=== PATIENT | male | born 1960 | race Caucasian/White ===

== ENCOUNTER 2019-02-26 15:23 | Inpatient (IN) | payer MEDICARE, OTHER ==
[~2019-02-26] VITALS: Ht 182.9 cm; Wt 112.1 kg
--- NOTE | ~2019-02-26 | DS ---
[facility] [address] [place], [place] [address] Draft ADMISSION DATE: 02/27/2019 DISCHARGE DATE: 03/01/2019 FINAL DIAGNOSIS: Right posterior oropharyngeal squamous cell carcinoma. PROCEDURES PERFORMED: 1. Placement of left subclavian fqdp-i-fuvjdysv. 2. Physician directed fluoroscopy. 3. Upper endoscopy with Campylobacter-like organism test. 4. Biopsies of the duodenal bulb, antrum, and placement of percutaneous endoscopic gastrostomy tube. HISTORY OF PRESENT ILLNESS: Junior is a 58-year-old gentleman, who was diagnosed with HIV and AIDS a number of years ago. He has been on his medication and actually doing quite well. Unfortunately, a lady noticed a lump in his neck while standing in the parking lot. Upon evaluation, he has a squamous cell carcinoma in the right posterior oropharyngeal area. He had been asked to see me expeditiously for placement of his qusc-n-cmkxqydk and a PEG tube. In fact, he told me he had a tpqa-t-iylfogsx once before. HOSPITAL COURSE: Junior was brought into the operating room on 02/27/2019. We did place his left subclavian vzkh-i-hymvgnfa with help of our fluoroscopy unit. After this, we were able to do his upper endoscopy and we could see he does have a hiatal hernia with some vwky-xb-tnkujmmh gastroduodenitis. We have taken a WILFREDO test was came back negative for H pylori. Pathology results are still pending for the biopsies. We also placed his standard PEG tube at that time. The topical bolster is right at the 6 cm rosario. We had kept Junior in the hospital for a day to evaluate for any potential immediate postop complications. In addition, he lives by himself and has no help at home. This is the weekend and so we wanted to provide him with some instruction for his PEG tubes. Our office assistance saw him Saturday just before the procedure and she did recommend using Jevity 1.5. He requires 6 cans a day, which equals 480 mL of tube feeds 3 times a day, and he requires 240 mL of water every 2 hours. Of course, this can be adjusted based on his p.o. intake. We did provide that to him yesterday and he did quite well with that. This morning, his port site is excellent along with the PEG tube site. His abdominal exam is completely benign. With hydration, he did drop his hemoglobin from 14.5 down to 12.5. Also his BUN and creatinine improved from 25/1.78 to 20/1.54. His albumin is good at 4.3 and his a pre-albumin is good at 27.9. Due to I met with Junior this morning and he feels going comfortable going home today on Saturday. Our home health care team we out to see him this week and I will have him in my office later in the week. PATIENT NAME: JUNIOR VEGA JR DISCHARGE SUMMARY DATE OF : 58 REPORT #: [id number] PHYSICIAN: APARNA JIMÉNEZ MD PCP: YOVANI ALONSO MD REPORT IS CONFIDENTIAL AND NOT TO BE RELEASED WITHOUT AUTHORIZATION [address] [address] Draft DISCHARGE PLANS AND MEDICATIONS: Junior is going to be discharged to home with prescription for some pain medication. We will provide him with some Jackson. Otherwise, he is going to have all his routine medications. He can take a regular diet. He can shower and bathe as usual. He can perform his activities of daily living including walking up and down stairs and showering bathing as usual. He should not do any heavy pushing, pulling, or lifting more than 20 pounds. Our home health care team will see him this week and I will have him in my office later this week to check in on him. He told me he has already called. He is going to make an appointment with his dentist to make sure his teeth were fine before he starts his radiation and chemotherapy. He has expressed understanding and agrees above plan. Aparna Jiménez MD ALB/MODL /[id number] cc: MD Noel Marroquin, MD Jesus Lopez, MD Yovani Alonso, MD Mayelin Shaw MD Copies: APARNA JIMÉNEZ MD, ROBERT C MD CRABTREE, GARY MD DUFFY, SEAN MD PATIENT NAME: JUNIOR VEGA DISCHARGE SUMMARY DATE OF : 58 REPORT #: [id number] PHYSICIAN: APARNA JIMÉNEZ MD PCP: YOVANI ALONSO MD REPORT IS CONFIDENTIAL AND NOT TO BE RELEASED WITHOUT AUTHORIZATION [address] [address] Draft LAURIE SHAW HI ~ PATIENT NAME: ERASMO VEGABABAK ENNIS JR DISCHARGE SUMMARY DATE OF : 58 REPORT #: [id number] PHYSICIAN: APARNA JIMÉNEZ MD PCP: YOVANI ALONSO MD REPORT IS CONFIDENTIAL AND NOT TO BE RELEASED WITHOUT AUTHORIZATION
--- OUTSIDE RECORDS SUMMARY | ~2019-02-26 | XMS | Encounter Summary ---
Demographics + + + | Address | [address] | | | [place] [address] | + + + | Home Phone | | + + + | Preferred Language | Unknown | + + + | Marital Status | Single | + + + | Confucianist Affiliation | Unknown | + + + [...] Team Providers + +------+ + | Care Home Based Assistant Name | Role | Phone | [...]
--- OUTSIDE RECORDS SUMMARY | ~2019-02-26 | XMS | Encounter Summary ---
Demographics + + + | Address | [address] | | | [place] [address] | + + + | Home Phone | | + + + | Preferred Language | Unknown | + + + | Marital Status | Single | + + + | Sikh Affiliation | Unknown | + + + | Race | White | + + + | Ethnic Group | Not or | + + + Author + + + | Author | [facility] | + + + | Organization | [facility] | + + + | Address | Unknown | + + + | Phone | Unavailable | + + + Support + + +---------+ + | Name | Relationship | Address | Phone | + + +---------+ + | None Per Pt | ECON | Unknown | Unavailable | + + +---------+ + Care Team Providers + +------+ + | Care Vice President Safety Name | Role | Phone | + +------+ + | Yovani Alonso MD | PCP | | + +------+ + Encounter Details +--------+ + + + + | Date | Type | Department | Care Team | Description | +--------+ + + + + | 02/24/ | Documentati | Otolaryngology | Sunil Shaw MD | | | 2019 | on | Head and Neck | [address] | | | | | Surgery Services at | [address] [place], | | | | | [address] | [place] [address] | | | | | Ave Mailcode: | [phone] | | | | | [facility] | | | | | | and Healing, | | | | | | [address] | | | | | | [place], [place] | | | | | | [address] | | | | | | [phone] | | | +--------+ + + + [...]
--- OUTSIDE RECORDS SUMMARY | ~2019-02-26 | XMS | Clinical Summary ---
Demographics + + + | Address | [address] | | | [place] [address] | + + + | Home Phone | | + + + | Preferred Language | Unknown | + + + | Marital Status | Single | + + + | Bahai Affiliation | Unknown | + + + [...] Team Providers + +------+ + | Care Medical Reception Specialist Name | Role | Phone | + +------+ + | Yovani Alonso MD | PCP | | + +------+ + Source Comments ELLE is fully live on both Health system Ambulatory and Health system InPatient.[facility] Allergies + + + + + + [...] | + +--------+ + + + | IN | Routin | 02/22/2019 | Tonsil cancer | | | LARYNGOSCOPY,FLEXIBL | e | 8:36 PM | ([facility]) | | | E, DIAGNOSTIC | | [...] | MEDICA | xxxxxxxxxxx | 10/24/19 | [phone] | [address] | Medica | | | RE A & | | 10-Pre | 1 | [address] | re | | | B | | sent | | [place], [place] | | | | | | | | [address] | | + +--------+ +--------+ + +--------+ | SWINE [employer] RESEARCHER MEDICAID | SWINE GENETICS RESEARCHER | xxxxxxxx | 03/25/19 | | | [...] | | al/Cornelio | | 1961 | [phone] | [place] [address] | | | misty | | | 5 (Home) | | + +--------+ +--------+ + +"
--- OUTSIDE RECORDS SUMMARY | ~2019-02-26 | XMS | Encounter Summary ---
Demographics + + + | Address | [address] | | | [place] [address] | + + + | Home Phone | | + + + | Preferred Language | Unknown | + + + | Marital Status | Single | + + + | Mosque Affiliation | Unknown | + + + | Race | White | + + + | Ethnic Group | Not or | + + + Author + + + | Author | [facility] | + + + | Organization | [facility] | + + + | Address | Unknown | + + + | Phone | Unavailable | + + + Support + + +---------+ + | Name | Relationship | Address | Phone | + + +---------+ + | None Per Pt | ECON | Unknown | Unavailable | + + +---------+ + Care Team Providers + +------+ + | Care Ordnance Handler Name | Role | Phone | + [...] | | | Tonsil | MD [address]etal [address] | | | | | | cancer (HCC) | [address] | | | | | | Procedures | [address] | | | | | | PET CT | Rd | | | | | | [address] | [place], [place] | | | | | | TO | [address] | | | | | | [place] | Phone: | | | | | | | [phone] | | | | | | | Fax: | | | | | | | [phone] | | + +--------+ + + + [...] | | | Tonsil | MD [address] | Ty Hirsch MD | | | | | cancer (HCC) | [facility] | [place] | | | | | Procedures | [facility] | Cancer Clinic | | | | | CONSULT TO | Rd | [address] | | | | | RADIATION | [place], [place] | Willie Porras | | | | | ONCOLOGY | [address] | [address] | | | | | | Phone: | NICOLETTE Sharpe | | | | | | [phone] | [address] | | | | | | Fax: | Phone: | | | | | | [phone] | [phone] | | | | | | | Fax: | | | | | | | [phone] | + +--------+ + + + + Reason for Visit Intake Referral (Routine) + +--------+ + + + + | Status | Reason | Specialty | Diagnoses / | Referred By | Referred To | | | | | Procedures | Contact | Contact | + +--------+ + + + + | Authorized | | Otolaryngolog | Diagnoses | John, | Sunil Shaw, | | | | y | Malignant | Jesus Fabian MD | [address] | | | | | neoplasm of | [address] | [address] | | | | | pharynx, | [address] | Rafaela [address] | | | | | unspecified | [place] | [place], [place] | | | | | Pharyngeal | [place] | [address] | | | | | tumor | [address] | Phone: | | | | | Procedures | Phone: | [phone] | | | | | [place] NEW | [phone] | Fax: | | | | | PATIENT | Fax: | [phone] | | | | | LEVEL III | [phone] | | + +--------+ + + + + Encounter Details +--------+---------+ [...] | | | Surgery Services at | [facility], | | | | | [facility] [address] [facility] | [place] [address] | | | | | [place] Mailcode: | [phone] | | | | | [facility] | | | | | | and [address], | | | | | | [place] | | | | | | [place], [place] | | | | | | [address] | | | | | | [phone] | | | +--------+---------+ + + + [...] 58 y.o. male seen in consultation fr om Dr. Lopez regarding management of a right-sided neck mass. Report is that it was notic ed by a woman at [facility] a couple of months ago. He underwent CT of the neck after presentin g to his PCP and he was thereafter referred to Dr. Lopez. He underwent DL on 02/03/19 wit bacilio Lopez, at which time a tumor was visualized [...] would stage this patient clinically as a hB3D1Gq p16+, Sta ge I oropharyngeal squamous cell [...] him with arranging chemoradiation therapy in the [facility], with Dr. Ty Charlton. We have called his office and discussed with his PA. We will also help arrange PET/CT at [facility]. We discussed urgent dental evaluation, which [...] portions of this procedure. Sunil Shaw MD Cargo Checker Head and Neck Surgical Oncology Microvascular Reconstructive [...]
[~2019-02-26 15:23] MED LIST: 24 HOUR ALLER15.8 ML INH; ATENOLOL50 MG PO; COMBIVENT RESPIM4 GM INH; FUROSEMIDE40 MG PO; GABAPENTIN600 MG PO; IBUPROFEN600 MG PO; LISINOPRIL40 MG PO; LOPERAMIDE2 M1 PO; LORATADINE10 MG PO; MEDROL4 M1 PO; PRAVASTATIN SOD80 MG PO; PROVENTIL HFA6.7 GM INH; SPIRIVA18 MCG INH; VENTOLIN HFA18 GM INH; ZITHROMAX250 MG PO
--- NOTE | 2019-02-27 14:10 | NUR ---
02/27/19 1410 DinaRahel M 1324-PT TO PACU IN SF POSITION. EYES OPEN COMPLAINING OF PAIN. BREATHING UNLABORED, BUT TACHYPNIC. APPEARS ANXIOUS. SP02 >95% ON 4 L O2 VIA NC. DENIES NAUSEA 1325- GOLDSMITH APPRENTICE PROVIDES VERBAL ORDER FOR MORPHINE 10 MG. PATIENT STATES 10/10 PAIN IN ABDOMIN SURGICAL SITE. BOTH SITES CDI. 1330- PT ALERT AND ORIENTED, STILL ANXIOUS AND PAINFUL. WILL CONTINUE TO UTILIZE PRN PAIN MEDICATION. OXYGENATING AND VENTILATING WELL WITHOUT EXCERTION. SP02>95%. O2 TITRATED TO RA. 1335- PT CONTINUES TO RATE PAIN 10/10, IS DIAPHORETIC AND TACHYPNIC. WILL CONTINUE TO UTILIZE PRN PAIN MEDICATIONS. VSS VENTILATING AND OXYGENATING WELL. DENIES NAUSEA OR DIZZINESS. 1340- CXR OBTAINED. DR JIMÉNEZ AT BEDSIDE TALKING WITH PATIENT. JESSY VISUALIZING CXR AND STATES HE WILL PUT IN TRANSFER ORDER SO PT CAN GO TO THE FLOOR SOON. 1352- PT STATES PAIN IS NOW 8/10. RR, HR AND AGITATION HAVE IMPROVED. PT STATES TOLERABLE LEVEL OF PAIN IS 8/10. WILL CONTINUE TO MONITOR AND PROVIDE PRN PAIN MEDICATION. DENIES NAUSEA OR DIZZINESS SP02 HAS CONSISTENTLY SUSTAINED >95% ON RA. 1409- PT STATES "ITS HURTING MORE". STILL RATES PAIN 8-9/10. RR 17 SP02 100% ON RA. DENIES NAUSEA.
--- NOTE | 2019-02-27 14:48 | NUR ---
PATIENT ARRIVED TO MED SURG, TRANSFERRED TO BED. PATIENT REPORTS NO DIFFICULTY WITH AMBULATION AT BASELINE. VITALS DONE. PATIENT REPORTS 6/10 ABD PAIN, AT EPIGASTRIC PEG TUBE INSERTION SITE. PATIENT DENIES PAIN AT LEFT CHEST PORTACATH INSERTION SITE. BOTH DRESSINGS ARE CDI WITH ICE PACKS. PATIENT GIVEN WARM BLANKETS.
--- NOTE | 2019-02-27 16:50 | NUR ---
PATIENT UP TO VOID, PASS GAS IN BATHROOM. PATIENT IS STEADY ON HIS FEET, USING CALL LIGHT APPROPRIATELY. VITALS ARE STABLE. PATIENT RATES ABD PAIN 7/10.
--- NOTE | 2019-02-27 19:18 | NUR ---
SHIFT REPORT RECIEVED FROM JARED PALENCIA. PORT INCISION CDI, WNL. PEG INCISION CDI, WNL. PAIN 11/01 IN ABD. ICE PACK PROVIDED. PT REPOSITIONED. CALL LIGHT IN REACH.
--- NOTE | 2019-02-27 19:25 | NUR ---
PT PAIN 8/10 IN LOWER ABD, "SHARP AND TIGHT". PRN PAIN MED PROVIDED. NO OTHER NEEDS. CALL LIGHT IN REACH.
--- NOTE | 2019-02-27 20:48 | NUR ---
ASSESSMENT, VS, I&O COMPLETED. SCHEDULED MEDS PROVIDED. PAIN 5/10, PT DENIES NEED FOR FURTHER PAIN INTERVENTION. ICE WATER PROVIDED. NO OTHER NEEDS. CALL LIGHT IN REACH.
--- NOTE | 2019-02-27 21:35 | NUR ---
CARPENTER'S ASSISTANT ROUNDING NOTE. PT RESTING IN BED, WAKES WHEN MEN'S LEATHER DRESS BELT MAKER ENTERS THE ROOM. PT DENIES QUESTIONS OR CONCERNS. PT STATES THAT HE HAS RECEIVED WONDERFUL CARE, AND THAT EVERYONE IS KIND AND GENTLE. CALL LIGHT IN REACH. WHITEBOARD UDPATED.
--- NOTE | 2019-02-27 22:39 | NUR ---
PT RESTING IN BED, EYES CLOSED. RR 16, CPOX 93% ON RA, EVEN, UNLABORED. CALL LIGHT IN REACH.
--- NOTE | 2019-02-28 00:30 | NUR ---
PT UP TO BR. PAIN 6/10, TIGHTNESS IN ABD. PRN PAIN MED PROVIDED. VS TAKEN. ICE PACK PROVIDED TO ABD. NO OTHER NEEDS. CALL LIGHT IN REACH.
--- NOTE | 2019-02-28 02:30 | NUR ---
PT RESTING IN BED, EYES CLOSED. RR 14, EVEN, UNLABORED. CALL LIGHT IN REACH.
--- NOTE | 2019-02-28 04:39 | NUR ---
PT PAIN 6/10 IN ABD, "TIGHT". PRN PAIN MED PROVIDED. ASSESSMENT AND VITALS COMPLETED. NEW BAG IV FLUIDS PROVIDED. INCISIONS CDI, WNL. IV CDI, WNL. ICE PACK PROVIDED FRO ABD. NO OTHER NEEDS AT THIS TIME. CALL LIGHT IN REACH.
--- NOTE | 2019-02-28 05:18 | NUR ---
PT HAS SLEPT MOST THE SHIFT. ABD PAIN MANAGED WITH PRN PAIN MEDS. INCISIONS CDI, WNL. IV FLUSHED WELL. PT TOLERATED CLEAR DIET AND IV FLUIDS WELL.
--- NOTE | 2019-02-28 06:00 | NUR ---
PT RESTING IN BED, EYES CLOSED. RR 14, EVEN, UNLABORED. CALL LIGHT IN REACH.
--- NOTE | 2019-02-28 06:27 | NUR ---
PATIENT WAS UP TWICE DURING THE NIGHT TO BATHROOM, PATIENT IS A STAND BY ASSIST FRESH WATER GIVEN AND CALL LIGHT IN REACH
--- NOTE | 2019-02-28 06:35 | OR ---
[facility] [address] [place], [place] [address] Signed DATE OF OPERATION: 02/27/2019 SURGEON: Aparna Jiménez MD PREOPERATIVE DIAGNOSIS: Squamous cell carcinoma, right posterior oropharynx. POSTOPERATIVE DIAGNOSES: 1. Squamous cell carcinoma, right posterior oropharynx. 2. Ctile-oe-tavifkid sized hiatal hernia. 3. Wdvk-ii-vzeqcivz gastroduodenitis. PROCEDURES: 1. Placement of left subclavian Afzd-P-Tvzfrgse. 2. Physician directed fluoroscopy. 3. Placement of percutaneous endoscopic gastrostomy tube (6 cm). 4. Upper endoscopy with CLOtest and biopsies of the pyloric bulb and antrum. ESTIMATED BLOOD LOSS: None. INDICATIONS: Junior is a 58-year-old gentleman, who was previously diagnosed with HIV. He has been doing very well with his medication. His counts are down to undetectable and his CD4 counts are quite acceptable. However, he developed some swelling in the right side of his neck. A lady actually noticed it in the parking lot. He went to his primary care provider and this was confirmed on physical exam. A CT scan of his head and neck was obtained and he had cancer in the right posterior oropharynx. It was biopsied by one of our local filtration plant mechanic and found to be a squamous cell carcinoma. He has been down to [facility] for additional consultation. It was felt that he is not a surgical candidate. Therefore, he is preparing for radiation and chemotherapy. Consequently, he was asked to see me as a local general surgeon for placement of his Ybuk-W-Mckgccdx as well as a percutaneous endoscopic gastrostomy tube anticipating his need for nutrition secondary to dysphagia. In the office, I reviewed all this with Junior in detail. We went through a Yabk-D-Indwvoxv in detail. He understands the nature of a Dccx-O-Gkibodqv along with the risks of placement including, but not limited to bleeding, infection, scarring, change in contour of the skin, pneumothorax requiring chest tube placement, as well as catheter embolization requiring retrieval. In addition, we went over a percutaneous endoscopic gastrostomy tube in detail. He understands there is risk to that placement including, but not limited to Electronically Signed By: APARNA JIMÉNEZ MD 02/28/19 0635 PATIENT NAME: JUNIOR VEGA JR OPERATIVE REPORT DATE OF : 58 REPORT #: [id number] PHYSICIAN: APARNA JIMÉNEZ MD PCP: YOVANI LUQUE MD REPORT IS CONFIDENTIAL AND NOT TO BE RELEASED WITHOUT AUTHORIZATION [facility] [address] [place] [address] Signed bleeding, infection, scarring as well as change in contour of the skin, dislodgement, peritonitis, and need for possible open abdominal surgery. He had expressed understanding and wished to proceed. PROCEDURE NOTE: I met with Junior in our preop area. After answering his questions, we took Junior into our operating room. He was placed in the supine position under monitored anesthesia care. He was given preoperative antibiotics along with subcutaneous heparin. SCDs were utilized. His entire neck and chest wall were prepped and draped in usual sterile fashion. He was placed in slight Trendelenburg position. Local anesthetic was injected into the left chest wall and underneath the left clavicle. I was able to insert the needle into his left subclavian vein on the first pass of the needle. The wire was able to feed without any resistance whatsoever. We checked the position of the wire and found that to be appropriate with our fluoroscopy unit. An oblique incision was made over the chest wall and a subcutaneous pocket was developed bluntly with hemostats. The dilator was then passed over the wire without difficulty and the position of the dilator was confirmed with fluoroscopy unit. After this, the wire was removed and we passed our single-lumen Qyts-O-Nalzenhs up to about 18 cm at the level of the adipose tissue. We found again it was in good position with the help of the fluoroscopy unit. The catheter was trimmed to length and the hub was placed onto the catheter. The collar was brought back over the neck of the hub. The port was able to draw and flush quite nicely with saline. We once again checked the full length of the catheter with our fluoroscopy unit. We then filled the hub and the catheter with concentrated heparin. We used interrupted 2-0 Prolene sutures to secure the hub in position. There was a stitch on either side of the hub in one of the neck. After this, the wound was irrigated and suctioned out until clear. The dermis was then reapproximated with interrupted 3-0 subcuticular Monocryl sutures. The skin edges were reapproximated with a running 5-0 fast absorbing plain gut suture. Dry gauze and tape were then applied. Junior tolerated the procedure quite well. After this, the entire field was taken down. Our endoscopy equipment was then brought into the room. The adult gastroscope was then introduced and I could see the tumor in the right posterior oropharynx. The epiglottis, arytenoids, and vocal cords were uninvolved. We passed easily down the esophagus and out into the stomach itself. We went all the way out into the third portion of the duodenum. The duodenum was unremarkable. The pyloric channel did show some erythematous changes, but no ulcerations. No evidence of any gastric outlet obstruction. We took a biopsy out of the left pyloric bulb for pathologic review. The stomach showed some mild to moderate diffuse inflammatory changes. No gross ulcerations. We took a biopsy of the antrum for pathologic review as well as CLOtest. Upon retroflexion of scope, he does have just a alegy-vi-rjbyywpd sized hiatal hernia. We then prepped his abdominal wall with Betadine. With our index finger, we were able to palpate the left upper quadrant. He Electronically Signed By: APARNA JIMÉNEZ MD 02/28/19 0635 PATIENT NAME: JUNIOR VEGA JR OPERATIVE REPORT DATE OF : 58 REPORT #: [id number] PHYSICIAN: APARNA JIMÉNEZ MD PCP: YOVANI LUQUE MD REPORT IS CONFIDENTIAL AND NOT TO BE RELEASED WITHOUT AUTHORIZATION [facility] [address] [place], [place] [address] Signed still has a good body mass index and he is pretty thick. We tried to place our needle through just lateral to his epigastric artery and vein in the rectus sheath. We simply could not reach all the way into the stomach itself. We moved up to his previous laparoscopic cholecystectomy incision just below the xiphoid process. This was in the midline. We opened that carefully with about three 4 mm with our 11 blade knife and we were able to place our needle directly through that into the stomach itself. After this, the wire was inserted and we captured the wire with our snare through the endoscope. It was then brought out through the oropharynx, so that we had the wire present through his mouth and out through the abdominal wall. We were able to pass the PEG tube over the wire down into the stomach itself. The bolster was placed over the PEG tube in the top of the collar and the bolster is exactly at 6 cm. This is a little thicker than usual, but that is perfectly fine. We had removed the wire and reinserted our gastroscope and we confirmed the position of the PEG tube and we found that was not too tight and therefore avoiding necrosis of the gastric wall. The PEG tube was then trimmed to length in the clamp was placed over the PEG tube and then the two-way valve was placed onto the end of the PEG tube. Dry gauze was placed underneath the bolster onto the abdominal wall. We then suctioned out the stomach and withdrew the gastroscope. After this, Junior was awakened from his anesthesia and taken into recovery room in stable condition. Aparna Jiménez MD ALB/MODL /[id number] cc: MD Yovani Dong MD Andrew L Bower, MD Robert C Quackenbush, MD Gary Crabtree, MD Ryann Li, MD Electronically Signed By: APARNA JIMÉNEZ MD 02/28/19 0635 PATIENT NAME: JUNIOR VEGA OPERATIVE REPORT DATE OF : 58 REPORT #: [id number] PHYSICIAN: APARNA JIMÉNEZ MD PCP: YOVANI LUQUE MD REPORT IS CONFIDENTIAL AND NOT TO BE RELEASED WITHOUT AUTHORIZATION [address] [address] Signed Copies: MASSIEL PASTRANA MD, SEAN MD BOWER, ANDREW L MD QUACKENBUSH, ROBERT C MD CRABTREE, GARY MD LI, RYAN J MD ~ Electronically Signed By: APARNA JIMÉNEZ MD 02/28/19 0635 PATIENT NAME: JUNIOR VEGA OPERATIVE REPORT DATE OF : 58 REPORT #: [id number] PHYSICIAN: APARNA JIMÉNEZ MD PCP: YOVANI LUQUE MD REPORT IS CONFIDENTIAL AND NOT TO BE RELEASED WITHOUT AUTHORIZATION
--- NOTE | 2019-02-28 07:05 | NUR ---
BEDSIDE HANDOFF REPORT RECEIVED FROM CHAIR PAD MAKER RN. PT RESTING IN BED. PT RATING PAIN 6-7/10. DISCUSSED PLAN OF CARE INCLUDING DIET AND TUBE FEEDS THIS AM. PT DENIES OTHER NEEDS AT THIS TIME.
--- NOTE | 2019-02-28 11:07 | NUR ---
TUBE FEEDING BOLUS INTITIATED, RESIDUAL OF 4ML OF GASTRIC CONTENTS BEFORE FEEDING, TOTAL OF 250 ML OF WATER AND 480 ML OF JEVITY 1.5 GIVEN, PT TOLERATED WELL WITHOUT PAIN OR NAUSEA. PT EDUCATED ON STAYING UPRIGHT AFTER FEEDINGS, FEEDING SCHEDULE AND WATER FLUSHING SCHEDULE, AND HOW TO GIVE BOLUS FEEDINGS. PT FEELS COMFORTABLE WITH ATTEMPTING TUBE FEED THIS AFTERNOON WITH ASSITANCE. PT AMBULATED TO BATHROOM, STEADY ON FEET, VOIDED. DISCUSSED ACTIVTY, PT WILL WALK IN [place] THIS AFTERNOON AFTER SHOWER. PT DENIES OTHER NEEDS AT THIS TIME.
--- NOTE | 2019-02-28 12:50 | NUR ---
PT SALINE LOCKED FOR SHOWER. DRESSINGS REMOVED PER DR. JIMÉNEZ ORDER. PT PROVIDED WITH SELF CAR ITEMS. PT DENIES OTHER NEEDS AT THIS TIME.
--- NOTE | 2019-02-28 13:30 | NUR ---
PT COMPLETED WITH SHOWER. GAUZE REPLACED TO PEG TUBE SITE. ATTEMPTED TO RESTART IV FLUIDS, IV NOT PATENT. PLAN TO RESTART NEW IV AND COMPLETE AFTERNOON TUBE FEEDING. PT DENIES OTHER NEEDS AT THIS TIME.
--- NOTE | 2019-02-28 15:10 | NUR ---
ATTEMPTED IV INSERTION, UNABLE TO OBTAIN IV ACCESS. PT PERFORMED TUBE FEEDING AND WATER BOLUS WITH MINIMAL ASSISTANCE AND DIRECTION, PT ABLE TO DRAW UP SYRINGES OF FORMULA AND WATER AND DEMONSTRATED PROPER TECHNIQUE FOR BOLUS FEEDING. ALL QUESTIONS ANSWERED. PLAN FOR PT TO CONTINUE PERFORMING FEEDINGS AND WATER BOLUS THIS EVENING AND OVERNIGHT.
--- NOTE | 2019-02-28 17:30 | NUR ---
PT GETTING READY TO WALK IN THE [place]. PT RATING PAIN 6-7/10 TO ABD, GIVEN 2 TAB NORCO. PT DENIES OTHER NEEDS AT THIS TIME.
--- NOTE | 2019-02-28 18:23 | NUR ---
PT COMPLETED TUBE FEED AND WATER BOLU WITH MINIMAL ASSISTANCE. DISCUSSED PLAN FOR WATER BOLUS OVERNIGHT. PT DENIES OTHER NEEDS AT THIS TIME.
--- NOTE | 2019-02-28 18:24 | NUR ---
PT ON ROOM AIR, LUNG SOUNDS CLEAR. PT TOLERATED TUBE FEEDING 480 ML JEVITY 1.5 3 TIMES TODAY WITH 250 ML WATER BOLUS, PT ABLE TO DEMONSTRATE SELF FEEDINGS WITH MINIMAL ASSISTANCE. PAIN WELL CONTROLLED WITH NORCO AND MOTRIN. PT WALKED IN [place], SHOWERED TODAY. IV FLUIDS INFUSING D5LR AT 30 ML/HR. PT VOIDING QS.
--- NOTE | 2019-02-28 19:29 | NUR ---
TODAY I WENT IN TO CHECK ON HIM BROUGHT HIM SEVERAL WARM BLANKETS THROUGH OUT THE DAY. ALSO HE ASKED FOR AN ICE PACK. HE WALKED COUPLE TIMES AROUND MED SURG.
--- NOTE | 2019-02-28 19:42 | NUR ---
coop with assessment, l port insertion site w sutures intact. edges well approx peg tube in place, will do tf at 2200. call light at bedside
--- NOTE | 2019-02-28 19:56 | NUR ---
COMPRESSOR STATION OPERATOR ROUNDING NOTE. PT RESTING IN BED AWAKE, RECEIVING BREATHING TREATMENT. PT DENIES QUESTIONS, CONCERNS, OR NEEDS AT THIS TIME. CALL LIGHT IN REACH. WHITE BOARD UPDATED.
--- NOTE | 2019-02-28 22:21 | NUR ---
up to br, voided QS yellow urine. Did own free water flush through peg tubing. Was medicated with 2 Teague abd pain.
--- NOTE | 2019-03-01 01:10 | NUR ---
RESTING, NO DISTRESS, RESP EVEN, UNLABORED. CALL LIGHT AND FLUIDS AT BEDSIDE, INDEPENDENT IN ROOM
--- NOTE | 2019-03-01 02:00 | NUR ---
PT REPORT RECIEVED FROM TALHA ALMENDAREZ. CARE ASSUMED AT THIS TIME.
--- NOTE | 2019-03-01 02:30 | NUR ---
PT REPORT 6/10 ABD PAIN AND IS REQUESTING PAIN MEDICATION. PRN MEDICATION GIVEN AT THIS TIME (SEE EMAR).
--- NOTE | 2019-03-01 03:20 | NUR ---
PT REPORTS PAIN IS NOW CONTROLLED AT A TOLERABLE LEVEL. ASSESSMENT COMPLETED AT THIS TIME. PEG TUBE ASSESSED AND FLUSHED WITH 25O MLS OF WATER. RIGHT HAND IV DC'D NOT FLUSHING, DC'D AT THIS TIME PER DR. JIMÉNEZ. PT PROVIDED A WARM BLANKET. NO FURTHER NEEDS AT THIS TIME
--- NOTE | 2019-03-01 05:58 | NUR ---
FLUSHED PT PEG TUBE WITH 250 CC WATER. PT DENIES PAIN AT THIS TIME. CALL LIGHT WITHIN REACH. NO FURTHER NEEDS AT THIS TIME.
--- NOTE | 2019-03-01 07:05 | NUR ---
PT RESTING SUPINE IN BED EYES CLOSED AND RESPIRATIONS EVEN AND UNLABORED. CALL LIGHT AND H2O IN REACH. REPORT RECEIVED FROM TALHA MARTINEZ.
--- NOTE | 2019-03-01 08:41 | NUR ---
PT UP AMBULATING IN ROOM STATES "THE DOCTOR SAYS I GET TO GO HOME TODAY". PT A/O X4. ASSESSMENT COMPLETED AND AM MEDS ADMINISTERED. CALL LIGHT AND H2O IN REACH. H2O FREE WATER BOLUS SELF ADMINISTERED BY PT AT THIS TIME. NO FURTHER NEEDS OR CONCERNS VOICED.
[2019-03-01] MEDS ORDERED: TRIUMEQ TABLET1 EACH PO (11:18)
--- NOTE | 2019-03-02 15:00 | NUR ---
EMAILED THE FACE TO FACE TO HOME HEALTH, AND ALL THE REQUIRED DOCUMENTS. GOT THE APPROVAL.
== END 2019-03-01 10:15 | disposition home health service (06) | DRG 148 ==
LOC: DSVR 02-27 08:25 → DS 02-27 11:00 → EDSTATUS 02-27 11:00 → MS 02-27 11:00
PROVIDERS: ADMIT Colon & Rectal Surgery
PROC: 0DH63UZ Insertion of Feeding Device into Stomach, Percutaneous Approach (ICD-10-PCS; 2019-02-27)
PROC: 0JH63WZ Insertion of Totally Implantable Vascular Access Device into Chest Subcutaneous Tissue and Fascia, Percutaneous Approach (ICD-10-PCS; 2019-02-27)
PROC: 02HV33Z Insertion of Infusion Device into Superior Vena Cava, Percutaneous Approach (ICD-10-PCS; 2019-02-27)
PROC: B5181ZA Fluoroscopy of Superior Vena Cava using Low Osmolar Contrast, Guidance (ICD-10-PCS; 2019-02-27)
PROC: 0DB68ZX Excision of Stomach, Via Natural or Artificial Opening Endoscopic, Diagnostic (ICD-10-PCS; principal; 2019-02-27 11:00)
PROC: 0DB78ZX Excision of Stomach, Pylorus, Via Natural or Artificial Opening Endoscopic, Diagnostic (ICD-10-PCS; 2019-02-27 11:00)
DX: C10.3 Malignant neoplasm of posterior wall of oropharynx (principal); K44.9 Diaphragmatic hernia without obstruction or gangrene; K29.90 Gastroduodenitis, unspecified, without bleeding; J44.9 Chronic obstructive pulmonary disease, unspecified; I10 Essential (primary) hypertension; Z21 Asymptomatic human immunodeficiency virus [HIV] infection status; E78.00 Pure hypercholesterolemia, unspecified; M19.90 Unspecified osteoarthritis, unspecified site; Z79.899 Other long term (current) drug therapy; Z88.0 Allergy status to penicillin
CPT/HCPCS: 36415; 71045; 76000; 77001; 80048; 83735; 84100; 85025; 86677; 94640; 94762; A9270; C1788; J0690; J1644; J2250; J2270; J2370; J2704; J3010; J7121

== ENCOUNTER 2019-03-29 21:16 | Emergency (ER) | payer MEDICARE, OTHER ==
[~2019-03-29] VITALS: Ht 182.9 cm; Wt 108.9 kg
--- OUTSIDE RECORDS SUMMARY | ~2019-03-29 | XMS | Encounter Summary ---
Demographics + + + | Address | [address] | | | [place] [address] | + + + | Home Phone | | + + + | Preferred Language | Unknown | + + + | Marital Status | Single | + + + | Caodaism Affiliation | 1041 | + + + | Race | Unknown | + + + | Ethnic Group | Unknown | + + + Author + + + | Author | [facility] | | | and [place] | + + + | Organization | [facility] | | | and [place]ay[place] | + + + | Address | Unknown | + + + | Phone | Unavailable | + + + Support + + +---------+ + | Name | Relationship | Address | Phone | + + +---------+ + | Beth Mercado | ECON | Unknown | | + + +---------+ + Care Team Providers + +------+ + | Care Business Continuity Consultant Name | Role | Phone | + +------+ + PCP | Unavailable | + +------+ + Encounter Details +--------+ + + + + | Date | Type | Department | Care Team | Description | +--------+ + + + + | 12/06/ | Hospital | [facility] | Renetta Falk | | | 2005 | Encounter | MED CTR XRAY [address] | MD Yvonne [address] | | | | | [place] | [address] [place] | | | | | [place] [address] | [place] [address] | | | | | [phone] | [phone] | | | | | | | | +--------+ + + + + Social History + +-------+ +--------+------+ | Tobacco Use | Types | Packs/Day | Years | Date | | | | | Used | | + +-------+ +--------+------+ | Never Assessed | | | | | + +-------+ +--------+------+ + + + | Sex Assigned at | Date Recorded | | | | + + + | Not on file | | + + + + + + + | Job Start Date | Occupation | Industry | + + + + | Not on file | Not on file | Not on file | + + + + + + + + | Travel History | Travel Start | Travel End | + + + + + + | No recent travel history available. | + + documented as of this encounter Plan of Treatment Not on filedocumented as of this encounter Visit Diagnoses Not on filedocumented in this encounter"
--- OUTSIDE RECORDS SUMMARY | ~2019-03-29 | XMS | Encounter Summary ---
Demographics + + + | Address | [address] | | | [place] [address] | + + + | Home Phone | | + + + | Preferred Language | Unknown | + + + | Marital Status | Single | + + + | Orthodox Affiliation | 1041 | + + + | Race | Unknown | + + + | Ethnic Group | Unknown | + + + Author + + + | Author | [facility] | | | and Chayana | + + + | Organization | [facility] | | | and Chayana | [...] Team Providers + +------+ + | Care Wholesale Loan Processor Name | Role | Phone | + +------+ + PCP | Unavailable | + +------+ + Encounter Details +--------+ + + + + | Date | Type | Department | Care Team | Description | +--------+ + + + + | 08/21/ | Hospital | [facility] | João Resendez MD | | | 2008 | Encounter | MED CTR MP INTRA OP | [address] | | | | | [address] | [place], [place] | | | | | [place], [place] | [address] | | | | | [address] | [phone] | | | | | [phone] | | | +--------+ + + + [...]
--- OUTSIDE RECORDS SUMMARY | ~2019-03-29 | XMS | Encounter Summary ---
Demographics + + + | Address | [address] | | | [place] [address] | + + + | Home Phone | | + + + | Preferred Language | Unknown | + + + | Marital Status | Single | + + + | Latter Day Affiliation | 1041 | + + + | Race | Unknown | + + + | Ethnic Group | Unknown | + + + Author + + + | Author | [facility] | | | and Chayana | + + + | Organization | [facility] | | | and Chayana [...] Team Providers + +------+ + | Care Supervisor Rose Grading Name | Role | Phone | + +------+ + | Yovani Alonso MD | PCP | | + +------+ + Reason for Visit + + + | Reason | Comments | + + + | Appointment | 1 yr PRN due in June | + + + Encounter Details +--------+ + + + + | Date | Type | Department | Care Team | Description | +--------+ + + + + | 04/19/ | Telephone | [facility] | Russel Chiang | Appointment (1 yr | | 2015 | | [address] | MD Ju[address] | PRN due in June) | | | | [place], | [address] [place] | | | | | [place] [address] | [place] [address] | | | | | [phone] | [phone] | | | | | | | | +--------+ + + + + Social History + + + +--------+------+ | Tobacco Use | Types | Packs/Day | Years | Date | | | | | Used | | + + + +--------+------+ | Light Tobacco Smoker | Cigarettes | 0.3 | 38 | | + + + +--------+------+ + +---+---+---+ | Smokeless Tobacco: | | | | | Never Used | | | | + +---+---+---+ + + | Comments: light smoker one cigarette a week | + + + + +---------+ + | Alcohol Use | Drinks/Week | oz/Week | Comments | + + +---------+ + | No | | | | + + +---------+ + + + + | Sex Assigned at [...]
--- OUTSIDE RECORDS SUMMARY | ~2019-03-29 | XMS | Encounter Summary ---
Demographics + + + | Address | [address] | | | [place] [address] | + + + | Home Phone | | + + + | Preferred Language | Unknown | + + + | Marital Status | Single | + + + | Scientologist Affiliation | 1041 | + + + | Race | Unknown | + + + | Ethnic Group | Unknown | + + + Author + + + | Author | [facility] | | | and [place]ayana | + + + | Organization | [facility] | | | and [place]ay[place] [...] Team Providers + +------+ + | Care Head Concierge Name | Role | Phone | + +------+ + PCP | Unavailable | + +------+ + Encounter Details +--------+ + + + + | Date | Type | Department | Care Team | Description | +--------+ + + + + | 09/11/ | Hospital | [facility] | | | | 2006 | Encounter | MED CTR LABORATORY | | | | | | [address] | | | | | | [place] | | | | | | [address] | | | | | | [phone] | | | +--------+ + + + [...]
--- OUTSIDE RECORDS SUMMARY | ~2019-03-29 | XMS | Encounter Summary ---
Demographics + + + | Address | [address] | | | [place] [address] | + + + | Home Phone | | + + + | Preferred Language | Unknown | + + + | Marital Status | Single | + + + | Yazidi Affiliation | 1041 | + + + | Race | Unknown | + + + | Ethnic Group | Unknown | + + + Author + + + | Author | [facility] | | | and Chayana | + + + | Organization | [facility] | | | and [place]ayana | [...] Team Providers + +------+ + | Care Cyber Special Agent Name | Role | Phone | + +------+ + PCP | Unavailable | + +------+ + Encounter Details +--------+ + + + + | Date | Type | Department | Care Team | Description | +--------+ + + + + | 12/20/ | Hospital | [facility] | | | | 2006 | Encounter | MED CTR EMERGENCY | | | | | | CENTER [address] | | | | | | [place] | | | | | | [address] | | | | | | [phone] | | | +--------+ + + + [...]
--- OUTSIDE RECORDS SUMMARY | ~2019-03-29 | XMS | Encounter Summary ---
Demographics + + + | Address | [address] | | | [place] [address] | + + + | Home Phone | | + + + | Preferred Language | Unknown | + + + | Marital Status | Single | + + + | Yazidism Affiliation | 1041 | + + + | Race | Unknown | + + + | Ethnic Group | Unknown | + + + Author + + + | Author | [facility] | | | and [place]ayana | + + + | Organization | [facility] | | | and [place] [...] Team Providers + +------+ + | Care Sales Agent Pest Control Service Name | Role | Phone | + +------+ + PCP | Unavailable | + +------+ + Encounter Details +--------+ + + + + | Date | Type | Department | Care Team | Description | +--------+ + + + + | 08/28/ | Hospital | [facility] | | | | 2005 | Encounter | MED CTR LABORATORY | | | | | | [address] | | | | | | [place] | | | | | | [address] | | | | | | [phone] | | | +--------+ + + + [...]
--- OUTSIDE RECORDS SUMMARY | ~2019-03-29 | XMS | Encounter Summary ---
Demographics + + + | Address | [address] | | | [place] [address] | + + + | Home Phone | | + + + | Preferred Language | Unknown | + + + | Marital Status | Single | + + + | Baptist Affiliation | 1041 | + + + | Race | Unknown | + + + | Ethnic Group | Unknown | + + + Author + + + | Author | [facility] | | | and Chayana | + + + | Organization | [facility] | | | and [place]ay[place] | [...] Team Providers + +------+ + | Care Mat Machine Tender Name | Role | Phone | + +------+ + PCP | Unavailable | + +------+ + Encounter Details +--------+ + + + + | Date | Type | Department | Care Team | Description | +--------+ + + + + | 01/06/ | Hospital | [facility] | [place], | | | 2006 | Encounter | MED CTR EMERGENCY | Noel Tolliver MD [address] | | | | | CENTER [address] | [facility] | | | | | [place] | [place] [address] | | | | | [address] | [phone] | | | | | [phone] | | | +--------+ + + + [...]
--- OUTSIDE RECORDS SUMMARY | ~2019-03-29 | XMS | Encounter Summary ---
Demographics + + + | Address | [address] | | | [place] [address] | + + + | Home Phone | | + + + | Preferred Language | Unknown | + + + | Marital Status | Single | + + + | Alevism Affiliation | 1041 | + + + | Race | Unknown | + + + | Ethnic Group | Unknown | + + + Author + + + | Author | [facility] | | | and Chayana | + + + | Organization | [facility] | | | and [place]ayana [...] Team Providers + +------+ + | Care Splitter Head Name | Role | Phone | + +------+ + | Yovani Alonso MD | PCP | | + +------+ + Reason for Referral Evaluate & Treat (Routine) +--------+ + + + + + | Status | Reason | Specialty | Diagnoses / | Referred By | Referred To | | | | | Procedures | Contact | Contact | +--------+ + + + + + | Closed | Specialty | Gastroenterol | Diagnoses | Fito, | Jake, | | | Services | ogy | Colon | Jose Hernandez, | Jw Ordonez MD | | | Required | | cancer | [address], | | | | | screening | [address] | [address] | | | | | Diarrhea | [address] [place] | [place], | | | | | Procedures | [place], [place] | [place] [address] | | | | | [place] | [address] | Phone: | | | | | COLONOSCOPY, | Phone: | [phone] | | | | | DIAGNOSTIC | [phone] | Fax: | | | | | [place] | Fax: | [phone] | | | | | COLONOSCOPY, | [phone] | | | | | | [place] | | | | | | | ANESTH,INTES | | | | | | | [place],SCOPE,L | | | | | | | OW | | | +--------+ + + + + + Reason for Visit + + + | Reason | Comments | + + + | Diarrhea | | + + + | Colon Cancer | | | Screening | | + + + Encounter Details +--------+---------+ + + + | Date | Type | Department | Care Team | Description | +--------+---------+ + + + | 09/15/ | Office | [facility] | Jose Payton, | Colon cancer | | 2012 | Visit | GASTROENTEROLOGY | MD [address] | screening (Primary | | | | [address] [place] | [address] [place], | Dx); Diarrhea | | | | [address] [place], [place] | [place] [address] | | | | | [address] | [phone] | | | | | [phone] | | | +--------+---------+ + + + Social History + + + +--------+------+ | Tobacco Use | Types | Packs/Day | Years | Date | | | | | Used | | + + + +--------+------+ | Current Every Day | Cigarettes | 0.3 | 38 | | | Smoker | | | | | + + + +--------+------+ + +---+---+---+ | Smokeless Tobacco: | | | | | Never Used | | | | + +---+---+---+ + + +---------+ + | Alcohol Use [...] + + documented as of this encounter Last Filed Vital Signs + + + + + | Vital Sign | Reading | Time Taken | Comments | + + + + + | Blood Pressure | 152/80 | 09/15/2012 3:09 PM | | | | | PDT | | + + + + + | Pulse | 100 | 09/15/2012 3:09 PM | | | | | PDT | | + + + + + | Temperature | - | - | | + + + + + | Respiratory Rate | - | - | | + + + + + | Oxygen Saturation | - | - | | + + + + + | Inhaled Oxygen | - | - | | | Concentration | | | | + + + + + | Weight | 120.2 kg (265 lb) | 09/15/2012 3:09 PM | | | | | PDT | | + + + + + | Height | 184.2 cm (6' 0.5") | 09/15/2012 3:09 PM | | | | | PDT | | + + + + + | Body Mass Index | 35.45 | 09/15/2012 3:09 PM | | | | | PDT | | + + + + + documented in this encounter Progress Notes Jose Payton MD - 09/15/2012 3:35 PM PDTFormatting of this note might be different fr om the original. Subjective: Patient ID: Junior Roque Jr. is a 52 y.o. male. HPI Comments: Presents for colon cancer screening. Patient has chronic diarrhea which he re lates to his HIV status. He has watery bowel movements without blood 6-7 times a day. Denies GERD, PUD, liver, pancreas, or colon problems. S/p cholecystectomy. Grandfather had colon cancer. Diarrhea Associated symptoms include arthralgias and myalgias. Filed Vitals: 09/15/12 1509 BP: 152/80 Pulse: 100 PainSc: 0 - No pain Allergies Allergen Reactions Amoxicillin Penicillins Past Medical History Diagnosis Date Osteoarthritis COPD (chronic obstructive pulmonary disease) Fatigue Chronic diarrhea HIV (human immunodeficiency virus infection) Hypertension Herpes simplex type 2 infection Nephrolithiasis Peripheral neuropathy Anxiety state, unspecified Unspecified asthma Calculus of kidney Depressive disorder, not elsewhere classified Other atopic dermatitis and related conditions Mixed hyperlipidemia Tobacco use disorder Alcohol abuse, unspecified Obstructive chronic bronchitis with exacerbation Allergic rhinitis, cause unspecified Unspecified hereditary and idiopathic peripheral neuropathy Unspecified disorder of kidney and ureter Essential hypertension, benign IVDU (intravenous drug user) Kidney stone Past Surgical History Procedure Date Appendectomy Cholecystectomy Leg surgery Family History Problem Relation Age of Onset Heart attack Father Arthritis Mother Heart attack Mother Breast cancer Mother Hypertension Mother Mental illness Mother Depression Mother Heart attack Maternal Grandmother Stroke Maternal Grandmother Colon cancer Maternal Grandfather Colon polyps Maternal Grandfather Stroke Maternal Grandfather Stroke Paternal Grandmother Heart attack Paternal Grandfather Stroke Paternal Grandfather History Social History Marital Status: Single Spouse Name: N/A Number of Children: N/A Years of Education: N/A Occupational History Not on file. Social History Main Topics Smoking status: Current Everyday Smoker -- 0.3 packs/day for 38 years Types: Cigarettes Smokeless tobacco: Never Used Alcohol Use: No Drug Use: No Sexually Active: Yes -- Male partner(s) Other Topics Concern Not on file Social History Narrative No narrative on file Review of Systems Constitutional: Positive for unexpected weight change. Respiratory: Positive for shortness of breath. Cardiovascular: Negative. Gastrointestinal: Positive for diarrhea. Genitourinary: Positive for flank pain. Musculoskeletal: Positive for myalgias and arthralgias. Neurological: Negative. Hematological: HIV+ Psychiatric/Behavioral: Positive for dysphoric mood. The patient is nervous/anxious. Objective: Physical Exam Constitutional: He is oriented to person, place, and time. He appears well-developed and we ll-nourished. HENT: Head: Normocephalic and atraumatic. Eyes: Pupils are equal, round, and reactive to light. Cardiovascular: Normal rate and regular rhythm. Pulmonary/Chest: Distant breath sounds Abdominal: Soft. Bowel sounds are normal. He exhibits no distension and no mass. There is n o tenderness. There is no rebound and no guarding. Neurological: He is alert and oriented to person, place, and time. Skin: Skin is warm and dry. Psychiatric: He has a normal mood and affect. Assessment: Colon cancer screening Diarrhea HIV+ COPD Anxiety/depression Plan: Colonoscopy with anesthesia support Indications, alternatives, risks, and benefits of colonoscopy discussed with patient who ag denisse to proceed. documented in this e ncounter Plan of Treatment + + +--------+ + + | Name | Type | Priori | Associated Diagnoses | Order Schedule | | | | ty | | | + + +--------+ + + | Ambulatory referral | Outpatient | Routin | Colon cancer | Expected: | | to Gastroenterology | Referral | e | screening Diarrhea | 10/10/2012, Expires: | | | | | | 09/15/2013 | + + +--------+ + + documented as of this encounter Visit Diagnoses + + | Diagnosis | + + | Colon cancer screening - Primary Special screening for malignant neoplasms, colon | + + | Diarrhea | + + documented in this encounter
--- OUTSIDE RECORDS SUMMARY | ~2019-03-29 | XMS | Encounter Summary ---
Demographics + + + | Address | [address] | | | [place] [address] | + + + | Home Phone | | + + + | Preferred Language | Unknown | + + + | Marital Status | Single | + + + | Yazdanism Affiliation | 1041 | + + + | Race | Unknown | + + + | Ethnic Group | Unknown | + + + Author + + + | Author | [facility] | | | and [place]ayana | + + + | Organization | [facility] | | | and [place] | [...] Team Providers + +------+ + | Care Newspaper Clipper Name | Role | Phone | + +------+ + PCP | Unavailable | + +------+ + Encounter Details +--------+ + + + + | Date | Type | Department | Care Team | Description | +--------+ + + + + | 02/21/ | Hospital | [facility] | | | | 2006 | Encounter | MED CTR EMERGENCY | | | | | | CENTER [address] | | | | | | [place] | | | | | | [address] | | | | | | [phone] | | | +--------+ + + + [...]
--- OUTSIDE RECORDS SUMMARY | ~2019-03-29 | XMS | Encounter Summary ---
Demographics + + + | Address | [address] | | | [place] [address] | + + + | Home Phone | | + + + | Preferred Language | Unknown | + + + | Marital Status | Single | + + + | Hoahaoism Affiliation | [id number] | + + + | Race | Unknown | + + + | Ethnic Group | Unknown | + + + Author + + + | Author | [facility] | | | and [place]ay[place] | + + + | Organization | [facility] | | | and [...] Team Providers + +------+ + | Care Welding Tester Name | Role | Phone | + +------+ + | Yovani Alonso MD | PCP | | + +------+ + Encounter Details +--------+ + + + + | Date | Type | Department | Care Team | Description | +--------+ + + + + | 04/13/ | Hospital | [facility] | Russel Chiang | | | 2014 | Encounter | MED CTR NUCLEAR | MD Juice [address] | | | | | MEDICINE [address] | [address] [place] | | | | | [place], | [place], [place] [address] | | | | | [place] [address] | [phone] | | | | | [phone] | | | +--------+ + + + [...] + + documented as of this encounter Medications at Time of Discharge + + + +---------+ + + | Medication | Sig | Dispensed | Refills | Start | End Date | | | | | | Date | | + + + +---------+ + + | | | | 0 | 12/06/19 | | | albuterol-ipratropiu | | | | 12 | | | m (COMBIVENT) 103-18 | | | | | | | mcg/puff inhaler | | | | | | + + + +---------+ + + | atenolol | Take 100 mg by mouth | | 0 | | | | (TENORMIN) 100 MG | Daily. | | | | | | tablet | | | | | | + + + +---------+ + + | fluticasone | 1 spray each nostril | | 0 | 12/06/19 | | | (FLONASE) 50 | once daily | | | 12 | | | mcg/nasal spray | | | | | | + + + +---------+ + + | | 1 puff twice daily | | 0 | 10/14/19 | | | fluticasone-salmeter | | | | 10 | | | ol (ADVAIR DISKUS) | | | | | | | 500-50 mcg/puff | | | | | | | diskus inhaler | | | | | | + + + +---------+ + + | furosemide (LASIX) | | | 0 | 04/29/19 | | | 20 mg tablet | | | | 13 | | + + + +---------+ + + | gabapentin | 600 mg 2 times | | 0 | 07/02/19 | | | (NEURONTIN) 300 mg | daily. | | | 13 | | | capsule | | | | | | + + + +---------+ + + | | Take 25 mg by mouth | | 0 | | | | hydrochlorothiazide | Daily. | | | | | | 25 mg tablet | | | | | | + + + +---------+ + + | lisinopril | Take 20 mg by mouth | | 0 | | | | (PRINIVIL, ZESTRIL) | Daily. | | | | | | 20 mg tablet | | | | | | + + + +---------+ + + | lisinopril | Take 40 mg by mouth | | 0 | | | | (PRINIVIL,ZESTRIL) | Daily. | | | | | | 40 MG tablet | | | | | | + + + +---------+ + + | | 2 tablets by mouth | | 0 | 12/06/19 | | | lopinavir-ritonavir | twice daily | | | 12 | | | (KALETRA) 200-50 mg | | | | | | | per tablet | | | | | | + + + +---------+ + + | Loratadine 10 MG | Take 1 capsule by | | 0 | | | | CAPS | mouth Daily. | | | | | + + + +---------+ + + | lovastatin | Take 20 mg by mouth | | 0 | | | | (MEVACOR) 20 mg | nightly. | | | | | | tablet | | | | | | + + + +---------+ + + | LOVASTATIN PO | 40 mg Daily. | | 0 | 12/06/19 | | | | | | | 12 | | + + + +---------+ + + | PROMETHAZINE HCL | TABS; 1 tablet by | | 0 | 12/06/19 | | | PO | mouth every 6 hours | | | 12 | | + + + +---------+ + + | PROMETHAZINE HCL | SUPP; 1 tablet by | | 0 | 12/06/19 | | | | mouth once daily | | | 12 | | + + + +---------+ + + | tiotropium | 1 puff inhaled once | | 0 | 12/06/19 | | | (JOHNSONIVA HANDJEMALALEHeather) | daily | | | 12 | | | 18 mcg inhalation | | | | | | | capsule | | | | | | + + + +---------+ + + | TRUVADA 200-300 MG | | | 0 | 07/12/19 | | | per tablet | | | | 13 | | + + + +---------+ + + | amLODIPine | | | 0 | 07/08/19 | | | (NORVASC) 5 mg | | | | 13 | 5 | | tablet | | | | | | + + + +---------+ + + | FLUoxetine | Take 40 mg by mouth | | 0 | 12/06/19 | | | (PROZAC) 20 mg | Daily. | | | 12 | 5 | | capsule | | | | | | + + + +---------+ + + | | PATIENT NOT TAKING | | 0 | 12/06/19 | | | Hydrocodone-Acetamin | | | | 12 | 5 | | ophen (VICODIN PO) | | | | | | + + + +---------+ + + | IBUPROFEN PO | TABS; 1 tablet every | | 0 | 12/06/19 | | | | 6 hours. | | | 12 | 5 | + + + +---------+ + + | LOPERAMIDE HCL PO | NO LONGER TAKING. | | 0 | 12/06/19 | | | | REMOVED PER VERBAL | | | 12 | 5 | | | ORDER OF DR | | | | | | | SUMAN.PATIENT NOT | | | | | | | TAKING | | | | | + + + +---------+ + + | LORAZEPAM PO | TABS; 1 tablet by | | 0 | 12/06/19 | | | | mouth as needed. | | | 12 | 5 | + + + +---------+ + + documented as of this encounter Plan of Treatment Not on filedocumented as of this encounter Procedures + +--------+ + + + | Procedure Name | Priori | Date/Time | Associated Diagnosis | Comments | | | ty | | | | + +--------+ + + + | NM NUCLEAR STRESS | Routin | 04/13/2014 | CAD (coronary | Results for this | | TEST (PHARMACOLOGIC | e | 10:33 AM | artery disease) | procedure are in the | | - VASODILATOR) | | PST | | results section. | + +--------+ + + + documented in this encounter Visit Diagnoses Not on filedocumented in this encounter Administered Medications + +--------+ + +------+------+ | Medication Order | MAR | Action | Dose | Rate | Site | | | Action | Date | | | | + +--------+ + +------+------+ | technetium TC-99M sestamibi | Given | 04/13/19 | 30 | | | | (CARDIOLITE) injection 30 | | 15 10:29 | -millicu | | | | millicurie 30 -millicurie, | | AM PST | gabi | | | | Intravenous, ONCE PRN, Other, | | | | | | | Starting 04/13/14 at 1029, For | | | | | | | 1 dose, Nuclear Medicine | | | | | | + +--------+ + +------+------+ +---+---+ | | | +---+---+ documented in this encounter"
--- OUTSIDE RECORDS SUMMARY | ~2019-03-29 | XMS | Encounter Summary ---
Demographics + + + | Address | [address] | | | [place] [address] | + + + | Home Phone | | + + + | Preferred Language | Unknown | + + + | Marital Status | Single | + + + | Voodoo Affiliation | 1041 | + + + | Race | Unknown | + + + | Ethnic Group | Unknown | + + + Author + + + | Author | [facility] | | | and [place]ay[place] | + + + | Organization | [facility] | | | and Chayana [...] Team Providers + +------+ + | Care Environmental Engineering Manager Name | Role | Phone | + +------+ + PCP | Unavailable | + +------+ + Encounter Details +--------+ + + + + | Date | Type | Department | Care Team | Description | +--------+ + + + + | 04/29/ | Hospital | [facility] | [place], | | | 2007 | Encounter | MED CTR EMERGENCY | Noel Tolliver MD [address] | | | | | CENTER [address] | [facility] | | | | | [place] | [place] [address] | | | | | [address] | [phone] | | | | | [phone] | | | +--------+ + + + [...]
--- OUTSIDE RECORDS SUMMARY | ~2019-03-29 | XMS | Encounter Summary ---
Demographics + + + | Address | [address] | | | [place] [address] | + + + | Home Phone | | + + + | Preferred Language | Unknown | + + + | Marital Status | Single | + + + | Moravian Affiliation | 1041 | + + + | Race | Unknown | + + + | Ethnic Group | Unknown | + + + Author + + + | Author | [facility] | | | and [place]ay[place] | + + + | Organization | [facility] | | | and Chayana [...] Team Providers + +------+ + | Care Certified Pathology Assistant Name | Role | Phone | + +------+ + PCP | Unavailable | + +------+ + Encounter Details +--------+ + + + + | Date | Type | Department | Care Team | Description | +--------+ + + + + | 08/22/ | Hospital | [facility] | Rashel Mcdonald, | | | 2005 | Encounter | MED CTR XRAY [address] | | | | | [place] | [place] | | | | | [place] [address] | [address] | | | | | [phone] | | | +--------+ + + + [...]
--- OUTSIDE RECORDS SUMMARY | ~2019-03-29 | XMS | Encounter Summary ---
Demographics + + + | Address | [address] | | | [place] [address] | + + + | Home Phone | | + + + | Preferred Language | Unknown | + + + | Marital Status | Single | + + + | Tenriism Affiliation | 1041 | + + + | Race | Unknown | + + + | Ethnic Group | Unknown | + + + Author + + + | Author | [facility] | | | and Chayana | + + + | Organization | [facility] | | | and [...] Team Providers + +------+ + | Care Mounter Br[employer] Name | Role | Phone | + +------+ + | Yovani Alonso MD | PCP | | + +------+ + Reason for Visit + + + | Reason | Comments | + + + | Coronary Artery | Two month follow up | | Disease | | + + + | Hypertension | | + + + Encounter Details +--------+---------+ + + + | Date | Type | Department | Care Team | Description | +--------+---------+ + + + | 05/03/ | Office | [facility] | Russel Chiang | Essential | | 2015 | Visit | CARDIOLOGY [address] | MD Juice [address] | hypertension | | | | [place], | [address] [place] | (Primary Dx) | | | | [place] [address] | [place] [address] | | | | | [phone] | [phone] | | | | | | | | +--------+---------+ + + + [...] + + + | Blood Pressure | 160/110 | 05/03/2014 12:58 PM | [place] | | | | PST | | + + + + + | Pulse | 108 | 05/03/2014 12:58 PM | regular | | | | PST | | + + + + + | Temperature | - | - | | + + + + + | Respiratory Rate | 16 | 05/03/2014 12:58 PM | | | | | PST | | + + + + + | Oxygen Saturation | - | - | | + + + + + | Inhaled Oxygen | - | - | | | Concentration | | | | + + + + + | Weight | 95.7 kg (211 lb) | 05/03/2014 12:58 PM | | | | | PST | | + + + + + | Height | 176.5 cm (5' 9.5") | 05/03/2014 12:58 PM | | | | | PST | | + + + + + | Body Mass Index | 30.71 | 05/03/2014 12:58 PM | | | | | PST | | + + + + + documented in this encounter Progress Notes Russel Chiang MD - 05/03/2014 1:01 PM PSTFormatting of this note might be differe nt from the original. PATIENT NAME: Junior Roque : 1960: AGE: 53 y.o. REFERRED BY: Russel Chiang PRIMARY CARE: Yovani Alonso MD NEW PATIENT OFFICE VISIT Date of Service: 05/03/2014 HISTORY OF PRESENT ILLNESS: Junior Roque Jr. is a 53 y.o. male with a history of hypertension with suboptimal co ntrol as well as possible emphysema/chronic bronchitis as well as HIV here for further consu ltation. Patient is minimally active and does not engage in any regular exercise. He state s that he is often fatigued and feels that he does not sleep well. He does not regularly ch yudi his blood pressure. He denies any known history of coronary artery disease, heart failu re, cardiomyopathy, or previous stress testing. He has had intermittent history of lower ex tremity edema, right greater than left, and underwent an echocardiogram last year which was unrevealing. He states that his HIV is well-managed on multidrug regimen and his viral count is undetect able. He denies problems such as orthopnea, PND, or lower extremity edema, or any palpitations, l ightheadedness, or syncope. He has had no constitutional symptoms. CURRENT PROBLEMS Patient Active Problem List Diagnosis PNEUMONIA EMPHYSEMA BRONCHIOLITIS, ACUTE ABNORMAL CHEST XRAY BRONCHITIS, CHRONIC, ACUTE EXACERBATION HIV (human immunodeficiency virus infection) Hypertension Peripheral edema Osteoarthritis COPD (chronic obstructive pulmonary disease) Fatigue Nephrolithiasis Peripheral neuropathy Unspecified asthma(493.90) CAD (coronary artery disease) Venous insufficiency MEDICAL, SURGICAL, AND PERSONAL HISTORY Past Surgical History Procedure Laterality Date Appendectomy 1999 Cholecystectomy 2010 Lung surgery 2006 Acute HIV and pneumonia possibly PCP Kidney stone surgery x2, [place] [facility] Family History Problem Relation Age of Onset Heart attack Father Heart disease Father Arthritis Mother Breast cancer Mother Hypertension Mother Mental illness Mother Depression Mother Heart attack Maternal Grandmother Stroke Maternal Grandmother Colon cancer Maternal Grandfather Colon polyps Maternal Grandfather Stroke Maternal Grandfather Stroke Paternal Grandmother Heart attack Paternal Grandfather Stroke Paternal Grandfather Family Status Relation Status Age Father 64 heart attack Mother Alive Maternal Grandmother Maternal Grandfather Paternal Grandmother Paternal Grandfather Brother Alive History Social History Marital Status: Single Spouse Name: N/A Number of Children: 0 Years of Education: 12+ Occupational History Disability Social History Main Topics Smoking status: Light Tobacco Smoker -- 0.30 packs/day for 38 years Types: Cigarettes Smokeless tobacco: Never Used Comment: light smoker one cigarette a week Alcohol Use: No Drug Use: No Sexual Activity: Partners: Male Other Topics Concern None Social History Narrative Exercise: noneCaffeine: Diet Pepsi, Coke dailyLiving situation: with spouse CURRENT MEDICATIONS Current Outpatient Prescriptions Medication Sig Dispense Refill albuterol-ipratropium (COMBIVENT) 103-18 mcg/puff inhaler amLODIPine (NORVASC) 5 mg tablet atenolol (TENORMIN) 100 MG tablet Take 100 mg by mouth Daily. FLUoxetine (PROZAC) 20 mg capsule Take 40 mg by mouth Daily. fluticasone (FLONASE) 50 mcg/nasal spray 1 spray each nostril once daily fluticasone-salmeterol (ADVAIR DISKUS) 500-50 mcg/puff diskus inhaler 1 puff twice marcella y furosemide (LASIX) 20 mg tablet gabapentin (NEURONTIN) 300 mg capsule 600 mg 2 times daily. hydrochlorothiazide 25 mg tablet Take 25 mg by mouth Daily. Hydrocodone-Acetaminophen (VICODIN PO) PATIENT NOT TAKING IBUPROFEN PO TABS; 1 tablet every 6 hours. lisinopril (PRINIVIL, ZESTRIL) 20 mg tablet Take 20 mg by mouth Daily. lisinopril (PRINIVIL,ZESTRIL) 40 MG tablet Take 40 mg by mouth Daily. LOPERAMIDE HCL PO PATIENT NOT TAKING lopinavir-ritonavir (KALETRA) 200-50 mg per tablet 2 tablets by mouth twice daily Loratadine 10 MG CAPS Take 1 capsule by mouth Daily. LORAZEPAM PO TABS; 1 tablet by mouth as needed. lovastatin (MEVACOR) 20 mg tablet Take 20 mg by mouth nightly. LOVASTATIN PO 40 mg Daily. PROMETHAZINE HCL PO TABS; 1 tablet by mouth every 6 hours PROMETHAZINE HCL SUPP; 1 tablet by mouth once daily tiotropium (SPIRIVA HANDIHALER) 18 mcg inhalation capsule 1 puff inhaled once daily TRUVADA 200-300 MG per tablet No current facility-administered medications for this visit. ALLERGIES Allergies Allergen Reactions Amoxicillin Penicillins ROS Review of Systems Constitutional: Positive for fever, chills and malaise/fatigue. Negative for weight loss an d diaphoresis. HENT: Negative for congestion, ear discharge, ear pain, hearing loss, nosebleeds, sore thro at and tinnitus. Eyes: Positive for blurred vision. Negative for double vision. Respiratory: Positive for shortness of breath. Negative for cough, hemoptysis, sputum produ ction, wheezing and stridor. Cardiovascular: Positive for chest pain, palpitations, orthopnea and leg swelling. Negative for claudication and PND. Gastrointestinal: Negative for heartburn, nausea, vomiting, abdominal pain, diarrhea and co nstipation. Genitourinary: Negative for dysuria, urgency, frequency, hematuria and flank pain. Musculoskeletal: Negative for myalgias, back pain, joint pain, falls and neck pain. Skin: Negative for itching and rash. Neurological: Positive for dizziness, weakness and headaches. Negative for tingling, tremor s, sensory change, speech change and seizures. Endo/Heme/Allergies: Does not bruise/bleed easily. Psychiatric/Behavioral: Negative for memory loss. The patient is not nervous/anxious. OBJECTIVE: PHYSICAL EXAM BP 160/110 | Pulse 108 | Resp 16 | Ht 1.765 m (5' 9.5") | Wt 95.709 kg (211 lb) | BMI 30.72 kg/m2 Physical Exam Constitutional: He is oriented to person, place, and time. He appears well-developed and we ll-nourished. HENT: Head: Normocephalic and atraumatic. Eyes: Conjunctivae and EOM are normal. Neck: Normal range of motion. Neck supple. No thyromegaly present. Cardiovascular: Normal rate, regular rhythm, S1 normal, S2 normal, normal heart sounds and intact distal pulses. PMI is not displaced. Exam reveals no gallop and no friction rub. No murmur heard. Pulmonary/Chest: Effort normal and breath sounds normal. No respiratory distress. He has no wheezes. He has no rales. He exhibits no tenderness. Abdominal: Soft. Bowel sounds are normal. He exhibits no distension and no mass. There is n o tenderness. There is no rebound and no guarding. Musculoskeletal: Normal range of motion. He exhibits no edema. Lymphadenopathy: He has no cervical adenopathy. Neurological: He is alert and oriented to person, place, and time. Skin: Skin is warm and dry. No rash noted. Trace right ankle edema with minimal pitting and bilateral chronic venous stasis changes an d varicosities. Psychiatric: He has a normal mood and affect. Vitals reviewed. ECG: Reviewed by me today shows normal sinus rhythm, heart rate 79, normal ECG. LAB RESULTS: LIPID No results found for this basename: chol, trig, ldlcalc, hdl, ldl, calculated, cholhd l, ldlex, hdlex, trigex, cholex CHEMISTRY Lab Results Component Value Date GLU 92 04/12/2014 NA 141 04/12/2014 K 3.7 04/12/2014 CL 106 04/12/2014 CO2 29 04/12/2014 CALCIUM 8.8 04/12/2014 ALKPHOS 68 04/12/2014 AST 24 04/12/2014 ALT 30 04/12/2014 BILITOT 0.6 04/12/2014 CREA 0.88 04/12/2014 BUN 18 04/12/2014 EGFR >60 02/16/2013 EGFREX >60 04/14/2013 CREEX 1.05 04/14/2013 HEMATOLOGY Lab Results Component Value Date WBC 7.5 04/12/2014 WBC 7.9 04/12/2014 HGB 15.1 04/12/2014 HCT 45.7 04/12/2014 PLT 335 04/12/2014 HbA1c 5.5 I reviewed records from PCP for office visit on 01/12/14. Echocardiogram 2012 interpreted and reviewed by me LVEF 63%, no significant valvular diseas e, grade 1 LV diastolic dysfunction. Nuclear stress perfusion imaging study March 2014 interpreted and reviewed by me LVEF 61% , no significant perfusion abnormalities. Lower extremity Doppler ultrasound March 2014 reviewed by me negative for DVTs bilaterall y. ASSESSMENT: 1. Hypertension - patient name may have multiple contributors to suboptimal control, inclu ding possible underlying untreated obstructive sleep apnea, inactivity and chronic deconditi oning. I have asked the patient to obtain a digital arm blood pressure cuff and maintain a diary o f ambulatory readings. He may benefit from up titration of his amlodipine to 10 mg daily. I've also asked him to take his atenolol and a twice-daily fashion. 2. obstructive sleep apnea - patient has a STOP-BANG score of at least 4. No one is at [facility] to observe him sleep. He has not been told of snoring in the past. 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 He would benefit from further consultation a nd undergoing a PSG. This is in progress. 3. Risk assessment - patient has coronary disease risk factors of gender, and suboptimal b lood pressure control. He is minimally active and complains of significant exertional fatig ue. His stress perfusion imaging study was low risk. Focus will remain on continued medica l therapy and risk factor reduction. 4. Lower extremity edema - patient has changes consistent with chronic venous stasis altho ugh he has no known history of DVTs or PTE. Recent lower extremity Doppler ultrasound study was negative for DVTs. Appearance of his minimal right-sided ankle edema is not consistent with that secondary to amlodipine. PLAN: 1. Increase amlodipine to 10 mg daily. 2. Consultation and further testing for JAG - review sleep study results. 3. Followup visit in 6-8 weeks. 4. Obtained digital arm blood pressure cuff and maintain an ambulatory diary. Portions of this report were transcribed using voice recognition software. Every effort wa s made to ensure accuracy; however, inadvertent computerized boilermaking supervisor errors may be pre sent. Electronically signed by: Andrez Chiang MD PhD [facility] 05/03/2014 documented in t his encounter Plan of Treatment Not on filedocumented as of this encounter Visit Diagnoses + + | Diagnosis | + + | Essential hypertension - Primary Unspecified essential hypertension | + + documented in this encounter
--- OUTSIDE RECORDS SUMMARY | ~2019-03-29 | XMS | Encounter Summary ---
Demographics + + + | Address | [address] | | | [place] [address] | + + + | Home Phone | | + + + | Preferred Language | Unknown | + + + | Marital Status | Single | + + + | Shinto Affiliation | 1041 | + + + | Race | Unknown | + + + | Ethnic Group | Unknown | + + + Author + + + | Author | [facility] | | | and [place]ayana | + + + | Organization | [facility] | | | and [...] Team Providers + +------+ + | Care Marketing Services Manager Name | Role | Phone | + +------+ + PCP | Unavailable | + +------+ + Encounter Details +--------+ + + + + | Date | Type | Department | Care Team | Description | +--------+ + + + + | 12/05/ | Hospital | [facility] | [place], | | | 2007 | Encounter | MED CTR EMERGENCY | Noel Tolliver MD [address] | | | | | CENTER [address] | [facility] | | | | | [place] | [place] [address] | | | | | [address] | [phone] | | | | | [phone] | | | +--------+ + + + [...]
--- OUTSIDE RECORDS SUMMARY | ~2019-03-29 | XMS | Encounter Summary ---
Demographics + + + | Address | [address] | | | [place] [address] | + + + | Home Phone | | + + + | Preferred Language | Unknown | + + + | Marital Status | Single | + + + | Mosque Affiliation | 1041 | + + + | Race | Unknown | + + + | Ethnic Group | Unknown | + + + Author + + + | Author | [facility] | | | and Chayana | + + + | Organization | [facility] | | | and Chayana [...] Team Providers + +------+ + | Care Child Care Lead Teacher Name | Role | Phone | + +------+ + | Yovani Alonso MD | PCP | | + +------+ + Reason for Visit + + + | Reason | Comments | + + + | Hypertension | Two month follow up | + + + | Edema | | + + + Encounter Details +--------+---------+ + + + | Date | Type | Department | Care Team | Description | +--------+---------+ + + + | 07/01/ | Office | [facility] | Russel Chiang | Essential | | 2015 | Visit | CARDIOLOGY [address] | MD Juice [address] | hypertension | | | | [place], | [address] [place] | (Primary Dx) | | | | [place] [address] | [place] [address] | | | | | [phone] | [phone] | | | | | | | [...] + + + | Blood Pressure | 130/80 | 07/01/2014 1:54 PM | [place] | | | | PDT | | + + + + + | Pulse | 108 | 07/01/2014 1:54 PM | regular | | | | PDT | | + + + + + | Temperature | - | - | | + + + + + | Respiratory Rate | 16 | 07/01/2014 1:54 PM | | | | | PDT | | + + + + + | Oxygen Saturation | - | - | | + + + + + | Inhaled Oxygen | - | - | | | Concentration | | | | + + + + + | Weight | 97.5 kg (215 lb) | 07/01/2014 1:54 PM | | | | | PDT | | + + + + + | Height | 176.5 cm (5' 9.5") | 07/01/2014 1:54 PM | | | | | PDT | | + + + + + | Body Mass Index | 31.29 | 07/01/2014 1:54 PM | | | | | PDT | | + + + + + documented in this encounter Progress Notes Russel Chiang MD - 07/01/2014 1:56 PM PDTFormatting of this note might be differe nt from the original. PATIENT NAME: Junior Roque Jr. : 1960: AGE: 54 y.o. REFERRED BY: Russel Chiang PRIMARY CARE: Yovani Alonso MD NEW PATIENT OFFICE VISIT Date of Service: 07/01/2014 HISTORY OF PRESENT ILLNESS: Junior Roque Jr. is a 54 y.o. male with a history of hypertension with suboptimal co ntrol as well as possible emphysema/chronic bronchitis as well as HIV here for a follow-up v isit. He has kept meticulous records of his outpatient blood pressure readings which displa y uniformly optimal control. He has not yet undergone a sleep study and states that this is pending. Patient is minimally active and does not engage in any regular exercise. He stat es that he is often fatigued and feels that he does not sleep well. He does not regularly c heck his blood pressure. He denies any known history of coronary artery disease, heart fail ure, cardiomyopathy, or previous stress testing. He has had intermittent history of lower e xtremity edema, right greater than left, and underwent [...] pneumonia possibly PCP Kidney stone surgery x2, [facility] Family History Problem Relation Age of Onset [...] Topics Concern None Social History Narrative Exercise: none Caffeine: Diet Pepsi, Coke daily Living situation: with spouse CURRENT MEDICATIONS Current Outpatient Prescriptions Medication Sig Dispense Refill albuterol-ipratropium (COMBIVENT) 103-18 mcg/puff inhaler amLODIPine (NORVASC) 10 MG tablet Take 1 tablet by mouth Daily. 30 tablet 6 atenolol (TENORMIN) 100 MG tablet Take 100 [...] tablet Take 40 mg by mouth Daily. lopinavir-ritonavir (KALETRA) 200-50 mg per tablet 2 [...] this visit. ALLERGIES Allergies Allergen Reactions Amoxicillin Other (See Comments) UNKNOWN Penicillins Rash ROS Review of Systems Constitutional: Positive for [...] is not nervous/anxious. OBJECTIVE: PHYSICAL EXAM BP 130/80 | Pulse 108 | Resp 16 | Ht 1.765 m (5' 9.5") | Wt 97.523 kg (215 lb) | BMI 3 1.31 kg/m2 Physical Exam Constitutional: He is oriented [...] sleep apnea, inactivity and chronic deconditi oning. He appears to display improved blood pressure control, and wishes to continue monitoring th is with his primary physician. He will follow-up with us in an as-needed basis. 2. obstructive sleep apnea - patient has a STOP-BANG score of at least 4. No one is at [facility] to observe him sleep. He has not been told of snoring in the past. He does admit to production generalist gokul fatigue and lack of energy in [...] with that secondary to amlodipine. PLAN: 1. Continue current antihypertensive regimen 2. Consultation and further testing for JAG. 3. Followup visit in an as-needed basis. Portions of this report were transcribed using voice recognition software. Every effort wa s made to ensure accuracy; however, inadvertent computerized senior research consultant errors may be pre sent. Electronically signed by: Andrez Chiang MD PhD FACC 07/01/2014 documented in t his encounter Plan of Treatment Not on filedocumented as of this encounter Visit Diagnoses + + | Diagnosis | + + | Essential hypertension - Primary Unspecified essential hypertension | + + documented in this encounter
--- OUTSIDE RECORDS SUMMARY | ~2019-03-29 | XMS | Encounter Summary ---
Demographics + + + | Address | [address] | | | [place] [address] | + + + | Home Phone [...] + | Author | [facility] | | | and Chayana | + + + | Organization | [facility] | | | and [...] Team Providers + +------+ + | Care Investment Director Name | Role | Phone | + +------+ + PCP | Unavailable | + +------+ + Encounter Details +--------+ + + + + | Date | Type | Department | Care Team | Description | +--------+ + + + + | 10/21/ | Hospital | [facility] | Yovani Alonso MD | | | 2011 | Encounter | MED CTR XRAY [address] | [address] [facility] | | | | | [place] | [place] | | | | | [place] [address] | [address] | | | | | [phone] | | | +--------+ + + + [...] | + +--------+ + + + | XR KNEE BILATERAL 3 | | 10/22/2011 | | Results for this | | OR 4 VWS | | 7:20 AM | | procedure are in the | | | | PDT | | results section. | + +--------+ + + + documented in this encounter Results XR Knee Bilateral 3 or 4 Vws (10/22/2011 7:20 AM PDT) + + | Specimen | + + | | + + + + + | Narrative | Performed At | + + + | [facility] | [facility] | | [address] [facility] | [facility] | | THREE VIEWS BILATERAL KNEES, | DIAG IMG | | 10/22/11 CLINICAL HISTORY: PAIN. COMPARISON: None. | | | FINDINGS: The bones are well mineralized and well aligned. No | | | fracture or dislocation is suspected. The femorotibial | | | compartments are fairly mildly narrowed. No definite knee effusion | | | or other soft tissue abnormality is evident. IMPRESSION: 1. | | | FAIRLY MILD BILATERAL FEMOROTIBIAL JOINT COMPARTMENT NARROWING | | | WITHOUT OTHER EVIDENT ABNORMALITY. Dictated Date/Time: | | | 10/22/2011 08:26 Transcribed Date/Time: 10/22/2011 08:30 | | | Cost Report Clerk: <Electronically Signed by Grupo Bernal, | | | MD> 10/22/11 0842 | | + + + + + | Procedure Note | + + | Rao, Rad Conversion - 05/01/2013 5:46 PM Merged with [facility] | | Diagnostic Imaging Department [address] [place] [address] | | THREE VIEWS BILATERAL KNEES, 10/22/11 CLINICAL HISTORY: | | PAIN. COMPARISON: None. FINDINGS: The bones are well mineralized and well aligned. | | No fracture or dislocation is suspected. The femorotibial compartments are fairly | | mildly narrowed. No definite knee effusion or other soft tissue abnormality is evident. | | IMPRESSION: 1. FAIRLY MILD BILATERAL FEMOROTIBIAL JOINT COMPARTMENT NARROWING | | WITHOUT OTHER EVIDENT ABNORMALITY. Dictated Date/Time: 10/22/2011 08:26Transcribed | | Date/Time: 10/22/2011 08:30Transcriptionist: <Electronically Signed by Grupo Dixon | | MD Gabe> 10/22/11841 | |COMPARISON: None. | | | |FINDINGS: The bones are well mineralized and well aligned. No fracture or dislocation is suspected. | | The femorotibial compartments are fairly mildly narrowed. No definite knee effusion or o ther soft | |tissue abnormality is evident. | | | |IMPRESSION: | |1. FAIRLY MILD BILATERAL FEMOROTIBIAL JOINT COMPARTMENT NARROWING WITHOUT OTHER EVIDENT AB NORMALITY. | | | | | |Dictated Date/Time: 10/22/2011 08:26 | |Transcribed Date/Time: 10/22/2011 08:30 | |Cost Report Clerk: | |<Electronically Signed by Grupo Bernal MD> 10/22/1142 | + + + +---------+ + + | Performing | Address | City/State/Zipcode | Phone Number | | Organization | | | | + +---------+ + + | [place] | | | | | [facility] | | | | + +---------+ + + documented in this encounter Visit Diagnoses Not on filedocumented in this encounter"
--- OUTSIDE RECORDS SUMMARY | ~2019-03-29 | XMS | Encounter Summary ---
Demographics + + + | Address | [address] | | | [place] [address] | + + + | Home Phone | | + + + | Preferred Language | Unknown | + + + | Marital Status | Single | + + + | Adventist Affiliation | 1041 | + + + | Race | Unknown | + + + | Ethnic Group | Unknown | + + + Author + + + | Author | [facility] | | | and [place]ay[place] | + + + | Organization | [facility] | | | and [place] [...] Team Providers + +------+ + | Care Mobile Paint Specialist Name | Role | Phone | + +------+ + PCP | Unavailable | + +------+ + Encounter Details +--------+ + + + + | Date | Type | Department | Care Team | Description | +--------+ + + + + | 01/11/ | Hospital | [facility] | Hernan Diaz, | | | 2009 | Encounter | MED CTR EMERGENCY | [address] | | | | | CENTER [address] | [place] | | | | | [place] | [id number] | | | | | [address] | | | | | | [phone] | | | +--------+ + + + [...]
--- OUTSIDE RECORDS SUMMARY | ~2019-03-29 | XMS | Encounter Summary ---
Demographics + + + | Address | [address] | | | [place] [address] | + + + | Home Phone | | + + + | Preferred Language | Unknown | + + + | Marital Status | Single | + + + | Synagogue Affiliation | 1041 | + + + | Race | Unknown | + + + | Ethnic Group | Unknown | + + + Author + + + | Author | [facility] | | | and [place]ay[place] | + + + | Organization | [facility] | | | and [place] | [...] Team Providers + +------+ + | Care Patient Registration Specialist Name | Role | Phone | + +------+ + PCP | Unavailable | + +------+ + Encounter Details +--------+ + + + + | Date | Type | Department | Care Team | Description | +--------+ + + + + | 09/07/ | Hospital | [facility] | [place], | | | 2009 | Encounter | MED CTR EMERGENCY | Noel Tolliver MD [address] | | | | | CENTER [address] | [facility] | | | | | [place] | [place] [address] | | | | | [address] | [phone] | | | | | [phone] | | | +--------+ + + + [...]
--- OUTSIDE RECORDS SUMMARY | ~2019-03-29 | XMS | Encounter Summary ---
Demographics + + + | Address | [address] | | | [place] [address] | + + + | Home Phone | | + + + | Preferred Language | Unknown | + + + | Marital Status | Single | + + + | Jain Affiliation | 1041 | + + + | Race | Unknown | + + + | Ethnic Group | Unknown | + + + Author + + + | Author | [facility] | | | and Chayana | + + + | Organization | [facility] | | | and Chayana | [...] Team Providers + +------+ + | Care Stainless Steel Finisher Name | Role | Phone | + +------+ + | Yovani Alonso MD | PCP | | + +------+ + Encounter Details +--------+ + + + + | Date | Type | Department | Care Team | Description | +--------+ + + + + | 05/18/ | Hospital | [facility] | Jessica Dunn | | | 2013 | Encounter | MED CTR EMERGENCY | Caren Mejia MD [address] | | | | | CENTER [address] | [facility] | | | | | [place] | [place] [address] | | | | | [address] | [phone] | | | | | [phone] | Willis Villa MD | | | | | | [address] | | | | | | [place] | | | | | | [address] | | | | | | | [...] | 0 | 12/06/19 | | | (SPIRIVA HANDIHESTEBAN) | daily | | | 12 | | | 18 mcg inhalation | | | | | | | capsule | | | | | | + + + +---------+ + + | TRUVADA 200-300 MG | | | 0 | 04/19/20 | | | per tablet | | | | 13 | | + + + +---------+ + + | acetic acid | | | 0 | 04/15/19 | | | (VOSOL) 2 % otic | | | | 13 | 4 | | solution | | | | | | + [...] +---------+ + + | FLUoxetine | Take 20 mg by mouth | | 0 | 12/06/19 | | | (PROZAC) 20 mg | Daily. | | | 12 | 4 | | capsule | | | | | | + + + +---------+ + + | | PATIENT NOT TAKING | | 0 | 12/06/19 | | | Hydrocodone-Acetamin | | | | 12 | 5 | | ophen (VICODIN PO) | | | | | | + + + +---------+ + + | | TABS; as needed | | 0 | 12/06/19 | | | Hydrocodone-Acetamin | | | | 12 | 4 | | ophen (VICODIN PO) | | [...] | | | | | | | MAXOOD.PATIENT NOT | | | | | | | TAKING | | | | | + + + +---------+ + + | LOPERAMIDE HCL PO | TABS; 1 tablet every | | 0 | 12/06/19 | | | | 6 hours. | | | 12 | 4 | + + + +---------+ + + | LORAZEPAM PO | TABS; 1 tablet by | | 0 | 12/06/19 | | | | mouth as needed. | | | 12 | 5 | + + + +---------+ + + | LOVASTATIN PO | TABS; 1 tablet by | | 0 | 12/06/19 | | | | mouth once daily. | | | 12 | 4 | + + + +---------+ + + | MORPHINE SULFATE | TABS; 1 tablet by | | 0 | 12/06/19 | | | PO | mouth every 8 hours | | | 12 | 4 | + + + +---------+ + + | | | | 0 | 05/28/19 | | | oxyCODONE-acetaminop | | | | 13 | 4 | | hen (PERCOCET) 5-325 | | | | | | | mg per tablet | | | | | | + + + +---------+ + + | permethrin | | | 0 | 07/10/19 | | | (ELIMITE) 5% cream | | | | 13 | 4 | + + + +---------+ + + | | TABS; as needed | | 0 | 12/06/19 | | | Triprolidine-Pseudoe | | | | 12 | 4 | | phedrine | | | | | | | (ANTIHISTAMINE PO) | | | | | | + + + +---------+ + + documented as of this encounter Plan of Treatment Not on filedocumented as of this encounter Procedures + +--------+ + + + | Procedure Name | Priori | Date/Time | Associated Diagnosis | Comments | | | ty | | | | + +--------+ + + + | CT RENAL STONE WO | Routin | 05/19/2013 | | Results for this | | CONTRAST | e | 7:35 AM | | procedure are in the | | | | PST | | results section. | + +--------+ + + + | URINALYSIS, | Routin | 05/18/2013 | | Results for this | | MICROSCOPIC ONLY, | e | 7:44 PM | | procedure are in the | | WITH CULTURE IF | | PST | | results section. | | INDICATED | | | | | + +--------+ + + + | URINALYSIS | Routin | 05/18/2013 | | Results for this | | | e | 7:44 PM | | procedure are in the | | | | PST | | results section. | + +--------+ + + + documented in this encounter Results CT Renal Stone Wo Contrast (05/19/2013 7:35 AM PST) + + | Specimen | + + | | + + + + + | Narrative | Performed At | + + + | [facility] | [place] | | Department [address] [facility] [place] | [facility] | | [ rep ct [address]] [ rep ct [facility] | | st zip] Signed | - IMAGING | | | | | Patient Name: DWAINE VEGA | | | Physician: DACIA : 1960 Age: 52 Sex: M Unit | | | #: [id number] Exam Date: 05/18/13 Location: | | | ER Report #: [id number] Page: | | | %(RAD)RES..mtdd.print.filter("pg") of %(RAD) | | | RES..mtdd.print.filter("tpg") | | | | | | Accession Number: [id number] | | | UNENHANCED CT KUB: 05/18/2013 @ 1934 HOURS CLINICAL | | | HISTORY: RIGHT LOWER ABDOMINAL PAIN, HISTORY OF RENAL STONES. | | | COMPARISON: CT KUB 07/12/2012 and multiple previous CTs. | | | TECHNIQUE: Axial unenhanced images are performed through the | | | abdomen and pelvis, along with coronal and sagittal reformations. | | | ABDOMEN FINDINGS: Minimally imaged lung bases are | | | unremarkable. Portions of the liver and stomach are not imaged. The | | | imaged liver has an unremarkable unenhanced appearance, along with the | | | spleen, pancreas and adrenal glands. The gallbladder is surgically | | | absent, and no biliary ductal dilation is evident. The small central | | | right renal calculus visible on the study of 07/12/2012 is no longer | | | present. No renal or ureteral calculus or hydronephrosis is evident. | | | No renal parenchymal abnormality is visible on this unenhanced | | | study. There is sigmoid colonic diverticulosis, without suspicion for | | | diverticulitis. A focally narrowed segment of distal sigmoid colon | | | may be related to peristalsis but is difficult to characterize. | | | There is no associated mesenteric abnormality. A small volume of | | | layering fluid is present in the left colon. The bowel is otherwise | | | normal in caliber, without evidence of obstruction. The appendix is | | | surgically absent. No free air, free fluid, pathologic lymph node | | | enlargement or hernia is evident. There is scattered aortoiliac | | | calcification. Mild, generalized leftward lumbar curvature persists. | | | Approximate 50% compression deformity of the superior T12 vertebral | | | endplate is now evident, new from the study of 07/12/2012 but | | | otherwise age indeterminate. There is no retropulsion into the | | | central canal or neural foramina. Bilateral L5 spondylolysis is | | | again visible, along with degenerative disc disease and mild | | | anterolisthesis at L5-S1, similar to previous and with asymmetric | | | right-sided neural foraminal stenosis again evident. Degenerative disc | | | disease and mild retrolisthesis persist at L3-4, along with mild to | | | moderate, multifactorial central canal and neural foraminal | | | stenosis. PELVIS FINDINGS: The bladder is decompressed | | | and not well evaluated. Coarse calcifications persist within the | | | prostate. Seminal vesicles are grossly symmetric. Scattered rounded | | | calcifications in the deep pelvic cavity are stable and consistent | | | with phleboliths. No free air, free fluid, pathologic lymph node | | | enlargement, or hernia is evident. A small, rounded sclerotic focus in | | | the lateral aspect of the left femoral head demonstrates long-term | | | stability consistent with a bone island. Bones and soft tissues are | | | otherwise unremarkable. IMPRESSION: 1. NO EVIDENCE | | | OF ACUTE INTRAABDOMINAL DISEASE ON THIS UNENHANCED STUDY. 2. | | | INTERVAL PASSAGE OF A PREVIOUSLY VISIBLE SMALL RIGHT RENAL CALCULUS | | | COMPARED WITH THE STUDY OF , WITHOUT NEWLY VISIBLE RENAL | | | OR URETERAL CALCULI OR HYDRONEPHROSIS. 3. SIGMOID COLONIC | | | DIVERTICULOSIS WITHOUT SUSPICION FOR DIVERTICULITIS OR BOWEL | | | OBSTRUCTION, ALTHOUGH A SMALL VOLUME OF LAYERING FLUID IS PRESENT | | | THROUGHOUT THE LEFT COLON. FOCAL NARROWING OF A SEGMENT OF DISTAL | | | SIGMOID COLON MAY BE RELATED TO PERISTALSIS BUT IS DIFFICULT TO | | | CHARACTERIZE. CONSIDER ENDOSCOPIC FOLLOW-UP. APPENDIX AND | | | GALLBLADDER ARE ABSENT. 4. NEWLY VISIBLE MODERATE | | | COMPRESSION DEFORMITY OF THE T12 VERTEBRAL BODY FROM 07/12/2012, BUT | | | OTHERWISE AGE INDETERMINATE. THERE IS NO ASSOCIATED CENTRAL CANAL OR | | | NEURAL FORAMINAL STENOSIS. 5. BILATERAL L5 SPONDYLOLYSIS | | | WITH SIMILAR DEGENERATIVE DISC DISEASE, MILD SPONDYLOLISTHESIS, AND | | | STENOSIS AT L3-4 AND L5-S1 DESCRIBED. COMMENT: | | | Preliminary results of the study were communicated to the ER staff by | | | the [facility] radiologist on 05/18/2013 at 2010 hours. | | | Dictated Date/Time: 05/19/2013 07:35 Transcribed Date/Time: | | | 05/19/2013 08:12 Automotive Light Mechanic: | | | <<Signature on File>> | | | Grupo Dixon | | | MD Gabe05/19/13 3443 <Electronically signed by Grupo Bernal MD> | | | Grupo Bernal MD 05/19/13 0735 Automotive Light Mechanic: | | | [employer] [id number] Willis Villa MD | | | Jessica Dunn MD | | + + + + + + + + | Performing | Address | City/State/Zipcode | Phone Number | | Organization | | | | + + + + + | [facility] | [address] | [place] | [phone] | | [facility] | | [address] | | | - IMAGING | | | | + + + + + Urinalysis, Microscopic Only, with Culture if Indicated (05/18/2013 7:44 PM PST) + +-------+ + + + | Component | Value | Ref Range | Performed | Pathologist | | | | | At | Signature | + +-------+ + + + | WBC UA | 0-5 | 0 - 5 /hpf | [facility] | | | | | | [facility] | | | | | | MEDICAL | | | | | | CENTER - | | | | | | LABORATORY | | + +-------+ + + + | RBC UA | 0-3 | 0 - 3 /hpf | [facility] | | | | | | [facility] | | | | | | MEDICAL | | | | | | CENTER - | | | | | | LABORATORY | | + +-------+ + + + | SQUAMOUS | RARE | FEW /hpf | [facility] | | | EPITHELIAL | | | [facility] | | | [facility] | | | MEDICAL | | | | | | CENTER - | | | | | | LABORATORY | | + +-------+ + + + | BACTERIA UA | RARE | NONE /hpf | [facility] | | | | | | [facility] | | | | | | MEDICAL | | | | | | CENTER - | | | | | | LABORATORY | | + +-------+ + + + | Culture | NO | | [facility] | | | Indicated | | | [facility] | | | | | | MEDICAL | | | | | | CENTER - | | | | | | LABORATORY | | + +-------+ + + + + + | Specimen | + + | | + + + + + + + | Performing | Address | City/State/Zipcode | Phone Number | | Organization | | | | + + + + + | [facility] | [address] | [place] | [phone] | | [facility] | | [address] | | | - LABORATORY | | | | + + + + + | [facility] | [address] | [place] | | | [facility] | | [address] | | | - LABORATORY | | | | + + + + + Urinalysis (05/18/2013 7:44 PM PST) + + + + + + | Component | Value | Ref Range | Performed | Pathologist | | | | | At | Signature | + + + + + + | COLLECTION | VOID | | [facility] | | | [facility] | | | [facility] | | | | | | MEDICAL | | | | | | CENTER - | | | | | | LABORATORY | | + + + + + + | Color | YELLOW | | [facility] | | | | | | [facility] | | | | | | MEDICAL | | | | | | CENTER - | | | | | | LABORATORY | | + + + + + + | Clarity | CLEAR | | [facility] | | | | | | [facility] | | | | | | MEDICAL | | | | | | CENTER - | | | | | | LABORATORY | | + + + + + + | Glucose, | NEGATIVE | NEGATIVE mg/dL | [facility] | | | Urine | | | [facility] | | | | | | MEDICAL | | | | | | CENTER - | | | | | | LABORATORY | | + + + + + + | Bilirubin, | NEGATIVE | NEGATIVE | [facility] | | | Urine | | | [facility] | | | | | | MEDICAL | | | | | | CENTER - | | | | | | LABORATORY | | + + + + + + | Ketones, | NEGATIVE | NEGATIVE | [facility] | | | Urine | | | [facility] | | | | | | MEDICAL | | | | | | CENTER - | | | | | | LABORATORY | | + + + + + + | Specific | 1.020 | 1.001 - 1.030 | [facility] | | | [place] | | | [facility] | | | | | | MEDICAL | | | | | | CENTER - | | | | | | LABORATORY | | + + + + + + | Blood, | SMALL | NEGATIVE | [facility] | | | Urine | | | [facility] | | | | | | MEDICAL | | | | | | CENTER - | | | | | | LABORATORY | | + + + + + + | pH, Urine | 6.0 | 5.0 - 8.0 | [facility] | | | | | | [facility] | | | | | | MEDICAL | | | | | | CENTER - | | | | | | LABORATORY | | + + + + + + | Protein, | TRACE | NEGATIVE mg/dL | [facility] | | | Urine | | | [facility] | | | | | | MEDICAL | | | | | | CENTER - | | | | | | LABORATORY | | + + + + + + | Urobilinoge | NORMAL | NORMAL EU/dL | [facility] | | | n, Urine | | | [facility] | | | | | | MEDICAL | | | | | | CENTER - | | | | | | LABORATORY | | + + + + + + | Nitrite, | NEGATIVE | NEGATIVE | [facility] | | | Urine | | | [facility] | | | | | | MEDICAL | | | | | | CENTER - | | | | | | LABORATORY | | + + + + + + | Leukocyte | NEGATIVE | NEGATIVE | [facility] | | | Esterase, | | | [facility] | | | Urine | | | MEDICAL | | | | | | CENTER - | | | | | | LABORATORY | | + + + + + + + + | Specimen | + + | | + + + + + + + | Performing | Address | City/State/Zipcode | Phone Number | | Organization | | | | + + + + + | [facility] | [address] | [place] | [phone] | | [facility] | | [address] | | | - LABORATORY | | | | + + + + + | [facility] | [address] | [place] | | | [facility] | | [address] | | | - LABORATORY | | | | + + + + + documented in this encounter Visit Diagnoses Not on filedocumented in this encounter
--- OUTSIDE RECORDS SUMMARY | ~2019-03-29 | XMS | Encounter Summary ---
Demographics + + + | Address | [address] | | | [place] [address] | + + + | Home Phone | | + + + | Preferred Language | Unknown | + + + | Marital Status | Single | + + + | Alevism Affiliation | 1041 | + + + | Race | Unknown | + + + | Ethnic Group | Unknown | + + + Author + + + | Author | [facility] | | | and Chayana | + + + | Organization | [facility] | | | and [place] [...] Team Providers + +------+ + | Care Architecture Intern Name | Role | Phone | + +------+ + PCP | Unavailable | + +------+ + Encounter Details +--------+ + + + + | Date | Type | Department | Care Team | Description | +--------+ + + + + | 08/28/ | Hospital | [facility] | [place], | | | 2006 | Encounter | MED CTR EMERGENCY | Noel Tolliver MD [address] | | | | | CENTER [address] | [facility] | | | | | [place] | [place] [address] | | | | | [address] | [phone] | | | | | [phone] | | | +--------+ + + + [...]
--- OUTSIDE RECORDS SUMMARY | ~2019-03-29 | XMS | Encounter Summary ---
Demographics + + + | Address | [address] | | | [place] [address] | + + + | Home Phone | | + + + | Preferred Language | Unknown | + + + | Marital Status | Single | + + + | Zoroastrianism Affiliation | Unknown | + + + | Race | White | + + + | Ethnic Group | Not or | + + + Author + + + | Organization | Unknown | + + + | Address | Unknown | + + + | Phone | Unavailable | + + + Support + + +---------+ + | Name | Relationship | Address | Phone | + + +---------+ + | None Per Pt | ECON | Unknown | Unavailable | + + +---------+ + Care Team Providers + +------+ + | Care Crossing Flagman Name | Role | Phone | + +------+ + | Yovani Alonso MD | PCP | | + +------+ + Encounter Details +--------+--------+ + + + | Date | Type | Department | Care Team | Description | +--------+--------+ + + + | 02/17/ | Travel | | | | | 2019 | | | | | +--------+--------+ + + + Social History + + + +--------+ + | Tobacco Use | Types | Packs/Day | Years | Date | | | | | Used | | + + + +--------+ + | Former Smoker | Cigarettes | | | Quit: 2015 | + + + +--------+ + + +---+---+---+ | Smokeless Tobacco: | | | | | Never Used | | | | + +---+---+---+ + + +---------+ + | Alcohol Use | Drinks/Week | oz/Week | Comments | + + +---------+ + | Never | | | | + + +---------+ + + + + + | Alcohol Habits | Answer | Date Recorded | + + + + | How often do you have a drink containing | Never | 02/17/2019 | | alcohol? | | | + + + + | How many drinks containing alcohol do you | Not asked | | | have on a typical day when you are | | | | drinking? | | | + + + + | How often do you have six or more drinks on | Not asked | | | one occasion? | | | + + + + + + + | Sex Assigned [...]
--- OUTSIDE RECORDS SUMMARY | ~2019-03-29 | XMS | Clinical Summary ---
Demographics + + + | Address | [address] | | | [place] [address] | + + + | Home Phone | | + + + | Preferred Language | Unknown | + + + | Marital Status | Single | + + + | Tenriism Affiliation | 1041 | + + + | Race | Unknown | + + + | Ethnic Group | Unknown | + + + Author + + + | Author | [facility] | | | and [place]ay[place] | + + + | Organization | [facility] | | | and Chayana [...] Team Providers + +------+ + | Care Press Helper Name | Role | Phone | + +------+ + | Yovani Alonso MD | PCP | | + +------+ + Allergies + + + + + + | Active Allergy | Reactions | Severity | Noted | Comments | | | | | Date | | + + + + + + | Amoxicillin | Other (See Comments) | | | UNKNOWN | + + + + + + | Penicillins | Rash | Low | 05/30/20 | | | | | | 13 | | + + + + + + Medications + + + +---------+------+------+-------+ | Medication | Sig | Dispensed | Refills | Star | End | Statu | | | | | | t | Date | s | | | | | | Date | | | + + + +---------+------+------+-------+ | | 2 tablets by mouth | | 0 | 11/23 | | Activ | | lopinavir-ritonavir | twice daily | | | 06/11 | | e | | (KALETRA) 200-50 mg | | | | 12 | | | | per tablet | | | | | | | + + + +---------+------+------+-------+ | fluticasone | 1 spray each nostril | | 0 | 09/ | | Activ | | (FLONASE) 50 | once daily | | | 3/20 | | e | | mcg/nasal spray | | | | 12 | | | + + + +---------+------+------+-------+ | tiotropium | 1 puff inhaled once | | 0 | 09/1 | | Activ | | (SPIRIVA HANDIHALER) | daily | | | 20 | | e | | 18 mcg inhalation | | | | 12 | | | | capsule | | | | | | | + + + +---------+------+------+-------+ | PROMETHAZINE HCL | TABS; 1 tablet by | | 0 | 11/23 | | Activ | | PO | mouth every 6 hours | | | 320 | | e | | | | | | 12 | | | + + + +---------+------+------+-------+ | PROMETHAZINE HCL | SUPP; 1 tablet by | | 0 | 09/1 | | Activ | | | mouth once daily | | | 3/20 | | e | | | | | | 12 | | | + + + +---------+------+------+-------+ | | | | 0 | 09/1 | | Activ | | albuterol-ipratropiu | | | | 3/20 | | e | | m (COMBIVENT) 103-18 | | | | 12 | | | | mcg/puff inhaler | | | | | | | + + + +---------+------+------+-------+ | | 1 puff twice daily | | 0 | 07/2 | | Activ | | fluticasone-salmeter | | | | 2/20 | | e | | ol (ADVAIR DISKUS) | | | | 10 | | | | 500-50 mcg/puff | | | | | | | | diskus inhaler | | | | | | | + + + +---------+------+------+-------+ | TRUVADA 200-300 MG | | | 0 | 04/1 | | Activ | | per tablet | | | | 9/20 | | e | | | | | | 13 | | | + + + +---------+------+------+-------+ | furosemide (LASIX) | | | 0 | 02/0 | | Activ | | 20 mg tablet | | | | 5/20 | | e | | | | | | 13 | | | + + + +---------+------+------+-------+ | gabapentin | 600 mg 2 times | | 0 | 04/0 | | Activ | | (NEURONTIN) 300 mg | daily. | | | /20 | | e | | capsule | | | | 13 | | | + + + +---------+------+------+-------+ | | Take 25 mg by mouth | | 0 | | | Activ | | hydrochlorothiazide | Daily. | | | | | e | | 25 mg tablet | | | | | | | + + + +---------+------+------+-------+ | Loratadine 10 MG | Take 1 capsule by | | 0 | | | Activ | | CAPS | mouth Daily. | | | | | e | + + + +---------+------+------+-------+ | lovastatin | Take 20 mg by mouth | | 0 | | | Activ | | (MEVACOR) 20 mg | nightly. | | | | | e | | tablet | | | | | | | + + + +---------+------+------+-------+ | atenolol | Take 100 mg by mouth | | 0 | | | Activ | | (TENORMIN) 100 MG | Daily. | | | | | e | | tablet | | | | | | | + + + +---------+------+------+-------+ | lisinopril | Take 20 mg by mouth | | 0 | | | Activ | | (PRINIVIL, ZESTRIL) | Daily. | | | | | e | | 20 mg tablet | | | | | | | + + + +---------+------+------+-------+ | lisinopril | Take 40 mg by mouth | | 0 | | | Activ | | (PRINIVIL,ZESTRIL) | Daily. | | | | | e | | 40 MG tablet | | | | | | | + + + +---------+------+------+-------+ | LOVASTATIN PO | 40 mg Daily. | | 0 | 09/1 | | Activ | | | | | | 3/20 | | e | | | | | | 12 | | | + + + +---------+------+------+-------+ | amLODIPine | Take 1 tablet by | 30 | 6 | 02/0 | | Activ | | (NORVASC) 10 MG | mouth Daily. | tablet | | 9/20 | | e | | tablet | | | | 15 | | | + + + +---------+------+------+-------+ | ibuprofen | Take 600 mg by mouth | | 0 | | | Activ | | (ADVIL,MOTRIN) 600 | every 6 hours as | | | | | e | | MG tablet | needed for Pain. | | | | | | + + + +---------+------+------+-------+ | oxyCODONE | Take 1-2 tablets by | 30 | 0 | 06/0 | | Activ | | (ROXICODONE) 5 mg | mouth every 4 hours | tablet | | 2/20 | | e | | tablet | as needed for Pain. | | | 15 | | | + + + +---------+------+------+-------+ | promethazine | Take 1 tablet by | 56 | 0 | 06/0 | | Activ | | (PHENERGAN) 25 mg | mouth every 4 hours | tablet | | 2/20 | | e | | tablet | as needed. | | | 15 | | | + + + +---------+------+------+-------+ | tamsulosin | Take 1 capsule by | 30 | 0 | 06/0 | | Activ | | (FLOMAX) 0.4 mg CAPS | mouth Daily. | capsule | | 2/20 | | e | | | | | | 15 | | | + + + +---------+------+------+-------+ | | Take 1 tablet by | 25 | 0 | 03/0 | | Activ | | HYDROcodone-acetamin | mouth every 4 hours | tablet | | 4/20 | | e | | ophen (NORCO) 5-325 | as needed for Pain. | | | 16 | | | | mg per | | | | | | | | tabletIndications: | | | | | | | | Paronychia of | | | | | | | | finger, left | | | | | | | + + + +---------+------+------+-------+ Active Problems + + + | Problem | Noted Date | + + + | CAD (coronary artery disease) | 04/22/2014 | + + + + + | Overview: Nuclear Stress Test 04/12/14, LVEF 61%. | + + + + + | Venous insufficiency | 04/22/2014 | + + + + + | Overview: Lower Extremity Ultrasound, 04/12/14. | + + + + + | HIV (human immunodeficiency virus infection) | 02/26/2014 | + + + | Hypertension | 02/26/2014 | + + + | Peripheral edema | 02/26/2014 | + + + + + | Overview: Echo 08/20/12, LVEF 63%. | + + + +---+ | PNEUMONIA | | + +---+ | Pulmonary emphysema | | + +---+ + + | Overview: GERMANIA [id number] Decision | + + + +---+ | BRONCHIOLITIS, ACUTE | | + +---+ | ABNORMAL CHEST XRAY | | + +---+ | BRONCHITIS, CHRONIC, ACUTE EXACERBATION | | + +---+ | Osteoarthritis | | + +---+ | COPD (chronic obstructive pulmonary disease) | | + +---+ | Fatigue | | + +---+ | Nephrolithiasis | | + +---+ | Peripheral neuropathy | | + +---+ | Unspecified asthma(493.90) | | + +---+ + + | Overview: ICD-10 Record update | + + Family History + + +------+ + | Medical History | Relation | Name | Comments | + + +------+ + | Heart attack | Father | | | + + +------+ + | Heart disease | Father | | | + + +------+ + | Colon cancer | Maternal | | | | | Grandfath | | | | | er | | | + + +------+ + | Colon polyps | Maternal | | | | | Grandfath | | | | | er | | | + + +------+ + | Stroke | Maternal | | | | | Grandfath | | | | | er | | | + + +------+ + | Heart attack | Maternal | | | | | Grandmoth | | | | | er | | | + + +------+ + | Stroke | Maternal | | | | | Grandmoth | | | | | er | | | + + +------+ + | Arthritis | Mother | | | + + +------+ + | Breast cancer | Mother | | | + + +------+ + | Depression | Mother | | | + + +------+ + | Hypertension | Mother | | | + + +------+ + | Mental illness | Mother | | | + + +------+ + | Heart attack | Paternal | | | | | Grandfath | | | | | er | | | + + +------+ + | Stroke | Paternal | | | | | Grandfath | | | | | er | | | + + +------+ + | Stroke | Paternal | | | | | Grandmoth | | | | | er | | | + + +------+ + + +------+ + + | Relation | Name | Status | Comments | + +------+ + + | Brother | | Alive | | + +------+ + + | Father | | | heart attack | | | | (Age | | | | | 64) | | + +------+ + + | Maternal Grandfather | | | | + +------+ + + | Maternal Grandmother | | | | + +------+ + + | Mother | | Alive | | + +------+ + + | Paternal Grandfather | | | | + +------+ + + | Paternal Grandmother | | | | + +------+ + + Social History + + + [...] recent travel history available. | + + Last Filed Vital Signs + + + + + | Vital Sign | Reading | Time Taken | Comments | + + + + + | Blood Pressure | 164/107 | 05/27/2015 5:30 PM | | | | | PST | | + + + + + | Pulse | 96 | 05/27/2015 5:30 PM | | | | | PST | | + + + + + | Temperature | 37.1 C (98.8 F) | 05/27/2015 5:30 PM | | | | | PST | | + + + + + | Respiratory Rate | 16 | 05/27/2015 5:30 PM | | | | | PST | | + + + + + | Oxygen Saturation | 97% | 05/27/2015 5:30 PM | | | | | PST | | + + + + + | Inhaled Oxygen | - | - | | | Concentration | | | | + + + + + | Weight | 97.5 kg (215 lb) | 05/27/2015 5:30 PM | | | | | PST | | + + + + + | Height | 185.4 cm (6' 1") | 05/27/2015 5:30 PM | | | | | PST | | + + + + + | Body Mass Index | 28.37 | 05/27/2015 5:30 PM | | | | | PST | | + + + + + Plan of Treatment + + + + + | Health Maintenance | Due Date | Last Done | Comments | + + + + + | Vaccine: Zoster (1 | | | | | of 2) | 0 | | | + + + + + | Vaccine: | | 09/11/2011 | | | Dtap/Tdap/Td (2 - | 2 | | | | Td) | | | | + + + + + | Vaccine: Influenza | Completed | 12/26/2018, 12/27/2017, | | | | | 01/21/2017, Additional history | | | | | exists | | + + + + + Results Not on filefrom Last 3 Months Insurance + +--------+ +--------+ +---------+--------+ | Payer | Benefi | Subscriber | Effect | Phone | Address | Type | | | t Plan | ID | eamon | | | | | | / | | Dates | | | | | | Group | | | | | | + +--------+ +--------+ +---------+--------+ | MEDICARE | MEDICA | [id number] | 09/23/19 | [phone] | | Medica | | | RE | | 09-Pre | 5 | | re | | | PART A | | sent | | | | | | AND B | | | | | | + +--------+ +--------+ +---------+--------+ | MEDICARE | MEDICA | [id number] | 10/24/19 | [phone] | | Medica | | | RE | | 10-Pre | 5 | | re | | | PART A | | sent | | | | | | AND B | | | | | | + +--------+ +--------+ +---------+--------+ | [employer]AN | MODA | [id number] | 03/05/ | [phone] | | Medica | | MEDICAID HMO | HEALTH | | 2018-P | 1 | | id | | | MDCD | | resent | | | | | | [place] | | | | | | + +--------+ +--------+ +---------+--------+ | [employer]AN | MODA | [id number] | 02/18/ | [phone] | | Medica | | MEDICAID HMO | HEALTH | | 2018-P | 1 | | id | | | MDCD | | resent | | | | | | [place] | | | | | | + +--------+ +--------+ +---------+--------+ + +--------+ +--------+ + + | Guarantor Name | Accoun | Relation to | Date | Phone | Billing Address | | | t Type | Patient | of | | | | | | | | | | + +--------+ +--------+ + + | Junior Roque | Person | Self [birth year] | [address] | | Jr. | al/Fam | | 1961 | [phone] | [place] [address] | | | misty | | | 5 (Home) | | + +--------+ +--------+ + + | Junior Roque | Person | Self [birth year] | [address] | | Jr. | al/Fam | | 1961 | [phone] | [place] [address] | | | misty | | | 5 (Home) | | + +--------+ +--------+ + + Advance Directives + + + + + | Type | Date Recorded | Patient | Explanation | | | | Attacher | | + + + + + | Power of | | | | | Pv Design And Installation Technician | | | | + + + + + | Advance | 11/13/2013 1:45 | | booklet given | | Directive | PM | | | + + + + +
--- OUTSIDE RECORDS SUMMARY | ~2019-03-29 | XMS | Encounter Summary ---
Demographics + + + | Address | [address] | | | [place] [address] | + + + | Home Phone | | + + + | Preferred Language | Unknown | + + + | Marital Status | Single | + + + | Quaker Affiliation | 1041 | + + + | Race | Unknown | + + + | Ethnic Group | Unknown | + + + Author + + + | Author | [facility] | | | and [place] | + + + | Organization | [facility] | | | and [...] Team Providers + +------+ + | Care Prep Room Supervisor Name | Role | Phone | + +------+ + PCP | Unavailable | + +------+ + Encounter Details +--------+ + + + + | Date | Type | Department | Care Team | Description | +--------+ + + + + | 09/11/ | Hospital | [facility] | | | | 2006 | Encounter | [facility] | | | | | | [address] | | | | | | [place] | | | | | | [address] | | | | | | [phone] | | | +--------+ + + + [...]
--- OUTSIDE RECORDS SUMMARY | ~2019-03-29 | XMS | Encounter Summary ---
Demographics + + + | Address | [address] | | | [place] [address] | + + + | Home Phone | | + + + | Preferred Language | Unknown | + + + | Marital Status | Single | + + + | Holiness Affiliation | 1041 | + + + | Race | Unknown | + + + | Ethnic Group | Unknown | + + + Author + + + | Author | [facility] | | | and [place] | + + + | Organization | [facility] | | | and [...] Team Providers + +------+ + | Care Systems Eng Name | Role | Phone | + +------+ + PCP | Unavailable | + +------+ + Encounter Details +--------+ + + + + | Date | Type | Department | Care Team | Description | +--------+ + + + + | 11/25/ | Hospital | [facility] | | | | 2006 - | Encounter | MED CTR EMERGENCY | | | | | | [place] [address] | | | | 12/03/ | | [place] | | | | 2006 | | [address] | | | | | | [phone] | | | +--------+ + + + [...]
--- OUTSIDE RECORDS SUMMARY | ~2019-03-29 | XMS | Encounter Summary ---
Demographics + + + | Address | [address] | | | [place] [address] | + + + | Home Phone | | + + + | Preferred Language | Unknown | + + + | Marital Status | Single | + + + | Christian Affiliation | 1041 | + + + | Race | Unknown | + + + | Ethnic Group | Unknown | + + + Author + + + | Author | [facility] | | | and [place] | + + + | Organization | [facility] | | | and [place] [...] Team Providers + +------+ + | Care Drop Forger Name | Role | Phone | + +------+ + PCP | Unavailable | + +------+ + Encounter Details +--------+ + + + + | Date | Type | Department | Care Team | Description | +--------+ + + + + | 08/20/ | Hospital | [facility] | | | | 2008 | Encounter | MED CTR EMERGENCY | | | | | | CENTER [address] | | | | | | [place] | | | | | | [address] | | | | | | [phone] | | | +--------+ + + + [...]
--- OUTSIDE RECORDS SUMMARY | ~2019-03-29 | XMS | Encounter Summary ---
Demographics + + + | Address | [address] | | | [place] [address] | + + + | Home Phone | | + + + | Preferred Language | Unknown | + + + | Marital Status | Single | + + + | Zoroastrianism Affiliation | 1041 | + + + | Race | Unknown | + + + | Ethnic Group | Unknown | + + + Author + + + | Author | [facility] | | | and [place] | + + + | Organization | [facility] [...] Team Providers + +------+ + | Care Mri Special Procedures Technologist Name | Role | Phone | + +------+ + PCP | Unavailable | + +------+ + Encounter Details +--------+ + + + + | Date | Type | Department | Care Team | Description | +--------+ + + + + | 01/16/ | Hospital | [facility] | [facility] | | | 2008 | Encounter | MED CTR EMERGENCY | Caren Mejia MD [address] | | | | [address] | [facility] | | | | | [place] | [place] [address] | | | | | [address] | [phone] | | | | | [phone] | | | +--------+ + + + [...]
--- OUTSIDE RECORDS SUMMARY | ~2019-03-29 | XMS | Encounter Summary ---
Demographics + + + | Address | [address] | | | [place] [address] | + + + | Home Phone [...] + + + | Author | [facility] | | | and [place] | + + + | Organization | [facility] | | | and [place] | [...] Team Providers + +------+ + | Care Health And Safety Coordinator Name | Role | Phone | + +------+ + PCP | Unavailable | + +------+ + Encounter Details +--------+ + + + + | Date | Type | Department | Care Team | Description | +--------+ + + + + | 02/04/ | Hospital | [facility] | [place] | | | 2006 | Encounter | MED CTR EMERGENCY | Noel Tolliver MD [address] | | | | CENTER [address] | [facility] | | | | | [place] | [facility] [place] [address] | | | | | [address] | [phone] | | | | | [phone] | | | +--------+ + + + [...]
--- OUTSIDE RECORDS SUMMARY | ~2019-03-29 | XMS | Encounter Summary ---
Demographics + + + | Address | [address] | | | [place] [address] | + + + | Home Phone [...] + | Author | [facility] | | | and Chayana | + + + | Organization | [facility] | | | and Chayana [...] Team Providers + +------+ + | Care Assembler Final Name | Role | Phone | + +------+ + | Yovani Alonso MD | PCP | | + +------+ + Reason for Visit + + + | Reason | Comments | + + + | Leg Pain | left leg pain | + + + Encounter Details +--------+ + + + + | Date | Type | Department | Care Team | Description | +--------+ + + + + | 06/26/ | Emergency | [facility] | [place], | Left leg cellulitis | | 2013 - | | [facility] | MD [address] | (Primary Dx) | | | | CENTER [address] | [facility] | | | 06/27/ | | [place], [place] | [place] [address] | | | 2013 | | [address] | [phone] | | | | | [phone] | | | +--------+ + + + [...] + + + | Blood Pressure | 154/99 | 06/27/2013 12:35 AM | | | | | PDT | | + + + + + | Pulse | 89 | 06/27/2013 12:35 AM | | | | | PDT | | + + + + + | Temperature | 36.9 C (98.5 F) | 06/26/2013 10:50 PM | | | | | PDT | | + + + + + | Respiratory Rate | 16 | 06/26/2013 10:50 PM | | | | | PDT | | + + + + + | Oxygen Saturation | 98% | 06/27/2013 12:35 AM | | | | | PDT | | + + + + + | Inhaled Oxygen | - | - | | | Concentration | | | | + + + + + | Weight | 108.9 kg (240 lb) | 06/26/2013 10:50 PM | | | | | PDT | | + + + + + | Height | 182.9 cm (6') | 06/26/2013 10:50 PM | | | | | PDT | | + + + + + | Body Mass Index | 32.55 | 06/26/2013 10:50 PM | | | | | PDT | | + + + + + documented in this encounter Discharge Instructions Instructions [place] aBnda MD - 06/27/2013Elevate your left leg to heart level as much as possible Use the crutches to help you ambulate Take the medications as prescribed Recheck in 3 days Return immediately if your symptoms worsen AttachmentsThe following attachments cannot be sent through Care Everywhere.CELLULITIS (ENG [facility])documented in this encounter Medications at Time of Discharge [...] 0 | 12/06/19 | | | (SPIRIVA HANDIHALER) | daily | | | 12 | [...] + + + +---------+ + + | clindamycin | Take 1 capsule by | 40 | 0 | 06/28/19 | | | (CLEOCIN) 300 MG | mouth 4 times daily | capsule | | 14 | 4 | | capsule | for 10 days. | | | | | + + [...] + +---------+ + + | | Take 1 tablet by | 15 | 0 | 06/28/19 | | | HYDROcodone-acetamin | mouth every 6 hours | tablet | | 14 | 4 | | ophen (NORCO) 5-325 | as needed for Pain. | | | | | | mg [...] | + +--------+ + + + | CBC W/AUTO | STAT | 06/26/2013 | | Results for this | | DIFFERENTIAL | | 11:18 PM | | procedure are in the | | | | PDT | | results section. | + +--------+ + + + | SEDIMENTATION RATE | STAT | 06/26/2013 | | Results for this | | | | 11:18 PM | | procedure are in the | | | | PDT | | results section. | + +--------+ + + + | C-REACTIVE PROTEIN, | STAT | 06/26/2013 | | Results for this | | HIGH SENSITIVITY | | 11:18 PM | | procedure are in the | | | | PDT | | results section. | + +--------+ + + + | BASIC METABOLIC | STAT | 06/26/2013 | | Results for this | | PANEL | | 11:18 PM | | procedure are in the | | | | PDT | | results section. | + +--------+ + + + | ED INFORMATION | Routin | 06/26/2013 | | Results for this | | EXCHANGE | e | 10:30 PM | | procedure are in the | | | | PDT | | results section. | + +--------+ + + + documented in this encounter Results Sedimentation Rate (06/26/2013 11:18 PM PDT) + +--------+ + + + | Component | Value | Ref Range | Performed | Pathologist | | | | | At | Signature | + +--------+ + + + | ESR | 21 (H) | <20 mm/hr | [facility] | | | | | [facility] | | | | | [facility] | | | | | | [facility] - | | | | | | LABORATORY | | + +--------+ + + + + + | Specimen | + + | Blood | + + + + + + + | Performing | Address | City/State/Zipcode | Phone Number | | Organization | | | | + + + + + | [facility] | [address] | [place] | [phone] | | [facility] | | [address] | | | - LABORATORY | | | | + + + + + | [facility] | [address] | [place] | | | [facility] | | [address] | | | - LABORATORY | | | | + + + + + C-Reactive Protein, High Sensitivity (06/26/2013 11:18 PM PDT) + + + + + + | Component | Value | Ref Range | Performed | Pathologist | | | | | At | Signature | + + + + + + | CRP, High | 9.80 (H) | <0.30 mg/L | [facility] | | | Sensitive | | | [facility] | | | | | | [facility]ICAL | | | | | | CENTER - | | | | | | LABORATORY | | + + + + + + + + | Specimen | + + | Blood | + + + + + + + | Performing | Address | City/State/Zipcode | Phone Number | | Organization | | | | + + + + + | [facility] | [address] | [place] | [phone] | | [facility] | | [address] | | | - LABORATORY | | | | + + + + + | [facility] | [address] | [place] | | | [facility] | | [address] | | | - LABORATORY | | | | + + + + + Basic Metabolic Panel (06/26/2013 11:18 PM PDT) + + + + + + | Component | Value | Ref Range | Performed | Pathologist | | | | | At | Signature | + + + + + + | Na | 136 | 136 - 149 | [facility] | | | | | mmol/L | [facility] | | | | | | MEDICAL | | | | | | CENTER - | | | | | | LABORATORY | | + + + + + + | K | 2.9 (L) | 3.5 - 5.1 | [facility] | | | | | mmol/L | [facility] | | | | | | MEDICAL | | | | | | CENTER - | | | | | | LABORATORY | | + + + + + + | Cl | 103 | 98 - 109 mmol/L | [facility] | | | | | | [facility] | | | | | | MEDICAL | | | | | | CENTER - | | | | | | LABORATORY | | + + + + + + | CO2 | 25 | 24 - 31 mmol/L | [facility] | | | | | | [facility] | | | | | | MEDICAL | | | | | | CENTER - | | | | | | LABORATORY | | + + + + + + | Anion Gap | 8 | 6 - 17 mmol/L | [facility] | | | | | | [facility] | | | | | | MEDICAL | | | | | | CENTER - | | | | | | LABORATORY | | + + + + + + | Glucose | 97 | 70 - 109 mg/dL | [facility] | | | | | | [facility] | | | | | | MEDICAL | | | | | | CENTER - | | | | | | LABORATORY | | + + + + + + | BUN | 23 (H) | 7 - 18 mg/dL | [facility] | | | | | | [facility] | | | | | | MEDICAL | | | | | | CENTER - | | | | | | LABORATORY | | + + + + + + | Creatinine | 1.03 | 0.60 - 1.30 | [facility] | | | | | mg/dL | [facility] | | | | | | MEDICAL | | | | | | CENTER - | | | | | | LABORATORY | | + + + + + + | eGFR if not | >60Comment: GLOMERULAR | >=60 | [facility] | | | | FILTRATION | mL/min/1.73m2 | [facility] | | | [place] | RATE,ESTIMATED | | MEDICAL | | | | mL/min/1.64l0Lxdi than | | CENTER - | | | | 60 Chronic kidney | | LABORATORY | | | | disease,if found over a | | | | | | 3-month period.Less than | | | | | | 15 Kidney failureFor | | | | | | | | | | | | Americans,multiply the | | | | | | calculated GFR by 1.21. | | | | | | | | | | + + + + + + | Calcium | 8.4 | 8.3 - 10.5 | [facility] | | | | | mg/dL | [facility] | | | | | | MEDICAL | | | | | | CENTER - | | | | | | LABORATORY | | + + + + + + | BUN/Creatin | 22.3 | | [facility] | | | ine Ratio | | | [facility] | | | | | | [facility]ICAL | | | | | | CENTER - | | | | | | LABORATORY | | + + + + + + + + | Specimen | + + | Blood | + + + + + + + | Performing | Address | City/State/Zipcode | Phone Number | | Organization | | | | + + + + + | [facility] | [address] | [place], [place] | [phone] | | [facility] | | [address] | | | - LABORATORY | | | | + + + + + | [facility] | [address] | [place], [place] | | | [facility] | | [address] | | | - LABORATORY | | | | + + + + + CBC w/ Auto Differential (06/26/2013 11:18 PM PDT) + + + + + + | Component | Value | Ref Range | Performed | Pathologist | | | | | At | Signature | + + + + + + | WBC | 15.4 (H) | 4.0 - 11.0 K/uL | [facility] | | | | | | [facility] | | | | | | MEDICAL | | | | | | CENTER - | | | | | | LABORATORY | | + + + + + + | RBC | 4.57 | 4.30 - 5.70 | [facility] | | | | | M/uL | [facility] | | | | | | MEDICAL | | | | | | CENTER - | | | | | | LABORATORY | | + + + + + + | Hemoglobin | 14.1 | 13.5 - 18.0 | [facility] | | | | | g/dL | [facility] | | | | | | MEDICAL | | | | | | CENTER - | | | | | | LABORATORY | | + + + + + + | Hematocrit | 42.8 | 40.0 - 51.0 % | [facility] | | | | | | [facility] | | | | | | MEDICAL | | | | | | CENTER - | | | | | | LABORATORY | | + + + + + + | MCV | 93.7 | 83.0 - 101.0 fL | [facility] | | | | | | [facility] | | | | | | MEDICAL | | | | | | CENTER - | | | | | | LABORATORY | | + + + + + + | MCH | 30.9 | 28.0 - 35.0 pg | [facility] | | | | | | [facility] | | | | | | MEDICAL | | | | | | CENTER - | | | | | | LABORATORY | | + + + + + + | MCHC | 33.0 | 32.0 - 36.0 | [facility] | | | | | g/dL | [facility] | | | | | | MEDICAL | | | | | | CENTER - | | | | | | LABORATORY | | + + + + + + | RDW-CV | 13.2 | <15.0 % | [facility] | | | | | | [facility] | | | | | | MEDICAL | | | | | | CENTER - | | | | | | LABORATORY | | + + + + + + | Platelet | 257 | 140 - 440 K/uL | [facility] | | | Count | | | [facility] | | | | | | MEDICAL | | | | | | CENTER - | | | | | | LABORATORY | | + + + + + + | MPV | 8.7 | fL | [facility] | | | | | | [facility] | | | | | | MEDICAL | | | | | | CENTER - | | | | | | LABORATORY | | + + + + + + | % | 75.8 | 45.0 - 82.0 % | [facility] | | | Neutrophils | | | [facility] | | | | | | MEDICAL | | | | | | CENTER - | | | | | | LABORATORY | | + + + + + + | % | 13.2 (L) | 20.0 - 45.0 % | [facility] | | | Lymphocytes | | | [facility] | | | | | | MEDICAL | | | | | | CENTER - | | | | | | LABORATORY | | + + + + + + | % Monocytes | 9.2 | 4.0 - 12.0 % | [facility] | | | | | | [facility] | | | | | | MEDICAL | | | | | | CENTER - | | | | | | LABORATORY | | + + + + + + | % | 0.8 | 0.0 - 5.0 % | [facility] | | | Eosinophils | | | [facility] | | | | | | MEDICAL | | | | | | CENTER - | | | | | | LABORATORY | | + + + + + + | % Basophils | 1.0 | 0.0 - 1.0 % | [facility] | | | | | | [facility] | | | | | | MEDICAL | | | | | | CENTER - | | | | | | LABORATORY | | + + + + + + | Absolute | 11.70 (H) | 1.80 - 8.50 | [facility] | | | Neutrophils | | K/uL | [facility] | | | | | | MEDICAL | | | | | | CENTER - | | | | | | LABORATORY | | + + + + + + | Absolute | 2.00 | 0.60 - 3.20 | [facility] | | | Lymphocytes | | K/uL | [facility] | | | | | | MEDICAL | | | | | | CENTER - | | | | | | LABORATORY | | + + + + + + | Absolute | 1.40 (H) | 0.00 - 1.00 | [facility] | | | Monocytes | | K/uL | [facility] | | | | | | MEDICAL | | | | | | CENTER - | | | | | | LABORATORY | | + + + + + + | Absolute | 0.10 | 0.00 - 0.40 | [facility] | | | Eosinophils | | K/uL | [facility] | | | | | | MEDICAL | | | | | | CENTER - | | | | | | LABORATORY | | + + + + + + | Absolute | 0.10 | 0.00 - 0.10 | [facility] | | | Basophils | | K/uL | [facility] | | | | | | MEDICAL | | | | | | CENTER - | | | | | | LABORATORY | | + + + + + + + + | Specimen | + + | Blood | + + + + + + + | Performing | Address | City/State/Zipcode | Phone Number | | Organization | | | | + + + + + | [facility] | [address] | [place] | [phone] | | [facility] | | [address] | | | - LABORATORY | | | | + + + + + | [facility] | [address] | [place] | | | [facility] | | [address] | | | - LABORATORY | | | | + + + + + ED INFORMATION EXCHANGE (06/26/2013 10:30 PM PDT) + + | Specimen | + + | | + + + + + | Narrative | Performed At | + + + | VISIT TRACKING (3 MO.) Visit Date Location | [facility] | | Type Diagnoses | | | -------- | | | ---- 06/26/2013 22:29 [place] | | | [facility] Emergency lft leg wound/bite; | | | 05/18/2013 18:45 [facility] | | | Emergency CHR AIRWAY OBSTRUCT NEC; | | | | | | RESPIRATORY ABNORM NEC; | | | | | | HYPERTENSION NOS; | | | NAUSEA | | | ALONE; | | | ASYMPTOMATIC HUMAN | | | IMMUNODEF VIRUS INFECT STATUS; | | | | | | COUGH; | | | ABDOMINAL PAIN, OTHER | | | SPECIFIED SITE; VISIT COUNT (1 YR.) Visits [place] | | | Dx Location ------ --------- 9 | | | 1 [facility] 9 | | | 1 Total Note: Visits indicate | | | total known visits. [place] Dx are the number of primary diagnoses | | | on the [facility]'s non-emergent dx list. | | | | | | --- [facility] has no Care Guidelines for this patient. | | + + + + +---------+ + + | Performing | Address | City/State/Zipcode | Phone Number | | Organization | | | | + +---------+ + + | [facility] | | | | + +---------+ + + documented in this encounter Visit Diagnoses + + | Diagnosis | + + | Left leg cellulitis - Primary Cellulitis and abscess of leg, except foot | + + documented in this encounter Administered Medications + + + +--------+------+------+ | Medication Order | MAR | Action | Dose | Rate | Site | | | Action | Date | | | | + + + +--------+------+------+ | clindamycin (CLEOCIN) capsule | Dispense | 06/28/19 | 300 mg | | | | (ER Prepack) 300 mg 300 mg, | to Home | 14 12:31 | | | | | Oral, ONCE, 06/27/13 at 0045, | | AM PDT | | | | | For 1 dose, Take 2 capsule(s) | | | | | | | four times daily Dispense for | | | | | | | home use., | | | | | | + + + +--------+------+------+ +---+---+ | | | +---+---+ + +-------+ +--------+---+---+ | clindamycin (CLEOCIN) capsule | Given | 06/27/19 | 300 mg | | | | 300 mg 300 mg, Oral, ONCE, Fri | | 14 11:45 | | | | | 06/26/13 at 2345, For 1 dose | | PM PDT | | | | + +-------+ +--------+---+---+ +---+---+ | | | +---+---+ + +-------+ +-------+---+ + | diphenhydrAMINE (BENADRYL) | Given | 06/27/19 | 50 mg | | Ventrogl | | injection 50 mg 50 mg, | | 14 11:06 | | | uteal-Ri | | Intramuscular, ONCE, 06/26/13 | | PM PDT | | | ght | | at 2315, For 1 dose | | | | | | + +-------+ +-------+---+ + +---+---+ | | | +---+---+ + + + +---------+---+---+ | HYDROcodone-acetaminophen | Dispense | 06/28/19 | 2 | | | | (NORCO) 5-325 mg per tablet (ER | to Home | 14 12:32 | tablets | | | | Prepack) 2 tablet 2 tablet, | | AM PDT | | | | | Oral, ONCE, 06/27/13 at 0045, | | | | | | | For 1 dose, 2 tablet(s) every 6 | | | | | | | hours prn pain Dispense for home | | | | | | | use., | | | | | | + + + +---------+---+---+ +---+---+ | | | +---+---+ + +-------+ +---------+---+---+ | HYDROcodone-acetaminophen | Given | 06/27/19 | 2 | | | | (NORCO) 5-325 mg per tablet 2 | | 14 11:05 | tablets | | | | tablet 2 tablet, Oral, ONCE, Fri | | PM PDT | | | | | 06/26/13 at 2315, For 1 dose | | | | | | + +-------+ +---------+---+---+ +---+---+ | | | +---+---+ + +-------+ +--------+---+---+ | potassium chloride 20 mEq/15 mL | Given | 06/27/19 | 40 mEq | | | | liquid 40 mEq 40 mEq, Oral, | | 14 11:45 | | | | | ONCE, 06/26/13 at 2345, For 1 | | PM PDT | | | | | dose, Give with 4 oz. of water or | | | | | | | other liquid., | | | | | | + +-------+ +--------+---+---+ +---+---+ | | | +---+---+ documented in this encounter"
--- OUTSIDE RECORDS SUMMARY | ~2019-03-29 | XMS | Encounter Summary ---
Demographics + + + | Address | [address] | | | [place] [address] | + + + | Home Phone | | + + + | Preferred Language | Unknown | + + + | Marital Status | Single | + + + | Amish Affiliation | 1041 | + + + | Race | Unknown | + + + | Ethnic Group | Unknown | + + + Author + + + | Author | [facility] | | | and [place] | + + + | Organization | [facility] | | [...] Team Providers + +------+ + | Care Jd Edwards Name | Role | Phone | + +------+ + | Yovani Alonso MD | PCP | | + +------+ + Encounter Details +--------+ + + + + | Date | Type | Department | Care Team | Description | +--------+ + + + + | 07/10/ | Hospital | [facility] | Yovani Alonso MD | | | 2012 | Encounter | [facility] | [address] [facility] | | | | | [address] | [place] | | | | | [place] | [address] | | | | | [address] | | | | | | [phone] | | | +--------+ + + + [...] + | | | | 0 | 09/13/20 | | | albuterol-ipratropiu | | | [...] + + + +---------+ + + | azithromycin | | | 0 | 05/03/19 | | | (ZITHROMAX) 250 mg | | | | 13 | 3 | | tablet | | | | | | + + + +---------+ + + | esomeprazole | Take 40 mg by mouth | | 0 | 12/06/19 | | | (NEXIUM) 40 mg | Daily. | | | 12 | 3 | | capsule | | | | [...] + + + +---------+ + + | FLUOXETINE HCL PO | TABS; 1 tablet by | | 0 | 12/06/19 | | | | mouth once daily. | | | 12 | 3 | + + + +---------+ + + [...] | | | | | | | MAXCHARLES.PATIENT NOT | | | | | | [...] + + + +---------+ + + | tamsulosin | | | 0 | 05/28/19 | | | (FLOMAX) 0.4 mg CAPS | | | | 13 | 3 | + + + +---------+ + + | | TABS; as needed | | 0 | 12/06/19 | | | Triprolidine-Pseudoe | | | | 12 | 4 | | phedrine | | | | | | | (ANTIHISTAMINE PO) | | | | | | + + + +---------+ + + | valACYclovir | Take 500 mg by mouth | | 0 | 12/06/19 | | | (VALTREX) 500 mg | 2 times daily. | | | 12 | 3 | | tablet | | | | | | + + + +---------+ + + documented as of this encounter Plan of Treatment Not on filedocumented as of this encounter Visit Diagnoses Not on filedocumented in this encounter"
--- OUTSIDE RECORDS SUMMARY | ~2019-03-29 | XMS | Encounter Summary ---
Demographics + + + | Address | [address] | | | [place] [address] | + + + | Home Phone | | + + + | Preferred Language | Unknown | + + + | Marital Status | Single | + + + | Tenriism Affiliation | 1041 | + + + | Race | Unknown | + + + | Ethnic Group | Unknown | + + + Author + + + | Author | [facility] | | | and [place] | + + + | Organization | [facility] | | | and [...] Team Providers + +------+ + | Care Renal Medicine Physician Name | Role | Phone | + +------+ + PCP | Unavailable | + +------+ + Encounter Details +--------+ + + + + | Date | Type | Department | Care Team | Description | +--------+ + + + + | 05/07/ | Hospital | [facility] | | | | 2006 | Encounter | [facility] | | | | | | [address] | | | | | | [place] | | | | | | [address] | | | | | | [phone] | | | +--------+ + + + [...]
--- OUTSIDE RECORDS SUMMARY | ~2019-03-29 | XMS | Encounter Summary ---
Demographics + + + | Address | [address] | | | [place] [address] | + + + | Home Phone | | + + + | Preferred Language | Unknown | + + + | Marital Status | Single | + + + | Gnosticist Affiliation | 1041 | + + + | Race | Unknown | + + + | Ethnic Group | Unknown | + + + Author + + + | Author | [facility] | | | and [place] | + + + | Organization | [facility] | | | and [...] Team Providers + +------+ + | Care Banker [place] Name | Role | Phone | + +------+ + PCP | Unavailable | + +------+ + Encounter Details +--------+ + + + + | Date | Type | Department | Care Team | Description | +--------+ + + + + | 08/06/ | Hospital | [facility] | | | | 2008 | Encounter | [facility] | | | | | | CENTER [address] | | | | | | [place] | | | | | | [address] | | | | | | [phone] | | | +--------+ + + + [...]
--- OUTSIDE RECORDS SUMMARY | ~2019-03-29 | XMS | Encounter Summary ---
Demographics + + + | Address | [address] | | | [place] [address] | + + + | Home Phone | | + + + | Preferred Language | Unknown | + + + | Marital Status | Single | + + + | Uatsdin Affiliation | 1041 | + + + | Race | Unknown | + + + | Ethnic Group | Unknown | + + + Author + + + | Author | [facility] | | | and Chayana | + + + | Organization | [facility] | | | and [...] Team Providers + +------+ + | Care Outdoor Fitness Trainer Name | Role | Phone | + +------+ + PCP | Unavailable | + +------+ + Encounter Details +--------+ + + + + | Date | Type | Department | Care Team | Description | +--------+ + + + + | 06/21/ | Hospital | [facility] | Cyndi Dias | | | 2011 | Encounter | [facility] | DO Khurram Smith | | | | | CENTER [address] | [place], [place] | | | | | [place], [place] | [address] | | | | | [id number] | | | | | | [phone] | | | +--------+ + + + [...] + +--------+ + + + | CBC WITH | Routin | 06/22/2011 | | Results for this | | DIFFERENTIAL | e | 8:42 PM | | procedure are in the | | | | PDT | | results section. | + +--------+ + + + | BASIC METABOLIC | Routin | 06/22/2011 | | Results for this | | PANEL | e | 8:42 PM | | procedure are in the | | | | PDT | | results section. | + +--------+ + + + | CT RENAL STONE WO | | 06/22/2011 | | Results for this | | CONTRAST | | 6:30 PM | | procedure are in the | | | | PDT | | results section. | + +--------+ + + + documented in this encounter Results Basic Metabolic Panel (06/22/2011 8:42 PM PDT) + + + + + + | Component | Value | Ref Range | Performed | Pathologist | | | | | At | Signature | + + + + + + | Glucose | 122 (H) | 70 - 109 mg/dL | [facility] | | | | | | [facility] | [facility] | [facility] | | | | | | [facility] - | | | | | | LABORATORY | | + + + + + + | Calcium | 8.4 | 8.3 - 10.5 | [facility] | | | | | mg/dL | [facility] | | | | | | [facility] | | | | | | C[facility] - | | | | | | LABORATORY | | + + + + + + | BUN | 12 | 7 - 18 mg/dL | [facility] | | | | | | [facility] | | | | | | [facility] | | | | | | C[facility] - | | | | | | LABORATORY | | + + + + + + | Creatinine | 0.94 | 0.60 - 1.30 | [facility] | | | | | mg/dL | [facility] | | | | | | MEDICAL | | | | | | CENTER - | | | | | | LABORATORY | | + + + + + + | Estimated | >60Comment: For | >60 mL/min/A | [facility] | | | GFR | -Americans, | | [facility] | | | | please multiply the | | MEDICAL | | | | result by 1.210 | | CENTER - | | | | This is an estimated | | LABORATORY | | | | GFR and is based on a | | | | | | standard adult | | | | | | body mass (A=1.73m2) and | | | | | | serum creatinine | | | | + + + + + + | BUN/Creatin | 12.8 | 12 - 20 | [facility] | | | ine Ratio | | | [facility] | | | | | | MEDICAL | | | | | | CENTER - | | | | | | LABORATORY | | + + + + + + | Na | 137 | 136 - 149 mEq/L | [facility] | | | | | | [facility] | | | | | | [facility] | | | | | | [facility] - | | | | | | LABORATORY | | + + + + + + | K | 3.7 | 3.5 - 5.1 mEq/l | [facility] | | | | | | [facility] | | | | | | [facility] | | | | | | C[facility] - | | | | | | LABORATORY | | + + + + + + | Cl | 105 | 98 - 109 mEq/l | [facility] | | | | | | [facility] | | | | | | [facility]ICAL | | | | | | CENTER - | | | | | | LABORATORY | | + + + + + + | CO2 | 26 | 24 - 31 mEq/L | [facility] | | | | | | [facility] | | | | | | [facility] | | | | | | CENTER - | | | | | | LABORATORY | | + + + + + + | Anion Gap | 9.7 | 6.0 - 17.0 | [facility] | | | | | [...] + | [facility] | [address] | [place], [place] | [phone] | | [facility] | | [address] | | | - LABORATORY | | | | + + + + + | [facility] | [address] | [place], [place] | | | [facility] | | [address] | | | - LABORATORY | | | | + + + + + CBC with Differential (06/22/2011 8:42 PM PDT) + +---------+ + + + | Component | Value | Ref Range | Performed | Pathologist | | | | | At | Signature | + +---------+ + + + | WBC | 9.7 | 4.0 - 11.0 K/uL | [facility] | | | | | | [facility] | | | | | | MEDICAL | | | | | | CENTER - | | | | | | LABORATORY | | + +---------+ + + + | RBC | 4.44 | 4.30 - 5.70 | [facility] | | | | | M/uL | [facility] | | | | | | MEDICAL | | | | | | CENTER - | | | | | | LABORATORY | | + +---------+ + + + | Hemoglobin | 14.1 | 13.5 - 18.0 | [facility] | | | | | gm/dL | [facility] | | | | | | MEDICAL | | | | | | CENTER - | | | | | | LABORATORY | | + +---------+ + + + | Hematocrit | 42.0 | 40.0 - 51.0 % | [facility] | | | | | | [facility] | | | | | | MEDICAL | | | | | | CENTER - | | | | | | LABORATORY | | + +---------+ + + + | MCV | 94.6 | 83.0 - 101.0 fL | [facility] | | | | | | [facility] | | | | | | MEDICAL | | | | | | CENTER - | | | | | | LABORATORY | | + +---------+ + + + | MCH | 31.8 | 28.0 - 35.0 pg | [facility] | | | | | | [facility] | | | | | | MEDICAL | | | | | | CENTER - | | | | | | LABORATORY | | + +---------+ + + + | MCHC | 33.7 | 32.0 - 36.0 | [facility] | | | | | g/dL | [facility] | | | | | | MEDICAL | | | | | | CENTER - | | | | | | LABORATORY | | + +---------+ + + + | RDW-CV | 12.1 | <15.0 % | [facility] | | | | | | [facility] | | | | | | MEDICAL | | | | | | CENTER - | | | | | | LABORATORY | | + +---------+ + + + | Platelet | 247 | 140 - 440 K/uL | [facility] | | | Count | | | [facility] | | | | | | MEDICAL | | | | | | CENTER - | | | | | | LABORATORY | | + +---------+ + + + | % | 52.6 | 45 - 75 % | [facility] | | | Neutrophils | | | [facility] | | | | | | MEDICAL | | | | | | CENTER - | | | | | | LABORATORY | | + +---------+ + + + | % | 32.7 | 20 - 45 % | [facility] | | | Lymphocytes | | | [facility] | | | | | | MEDICAL | | | | | | CENTER - | | | | | | LABORATORY | | + +---------+ + + + | % Monocytes | 11.1 | 4 - 12 % | [facility] | | | | | | [facility] | | | | | | [facility] | | | | | | CENTER - | | | | | | LABORATORY | | + +---------+ + + + | % | 3.0 | 0 - 5 % | [facility] | | | Eosinophils | | | [facility] | | | | | | [facility] | | | | | | CENTER - | | | | | | LABORATORY | | + +---------+ + + + | % Basophils | 0.6 | 0 - 1 % | [facility] | | | | | | [facility] | | | | | | [facility] | | | | | | CENTER - | | | | | | LABORATORY | | + +---------+ + + + | Absolute | 5.1 | 1.5 - 6.6 K/uL | [facility] | | | Neutrophils | | | [facility] | | | | | | [facility] | | | | | | CENTER - | | | | | | LABORATORY | | + +---------+ + + + | Absolute | 3.2 | 0.6 - 3.2 K/uL | [facility] | | | Lymphocytes | | | [facility] | | | | | | MEDICAL | | | | | | CENTER - | | | | | | LABORATORY | | + +---------+ + + + | Absolute | 1.1 (H) | 0.0 - 1.0 K/uL | [facility] | | | Monocytes | | | [facility] | | | | | | MEDICAL | | | | | | CENTER - | | | | | | LABORATORY | | + +---------+ + + + | Absolute | 0.3 | 0.0 - 0.4 K/uL | [facility] | | | Eosinophils | | | [facility] | | | | | | MEDICAL | | | | | | CENTER - | | | | | | LABORATORY | | + +---------+ + + + | Absolute | 0.1 | 0.0 - 0.1 K/uL | [facility] | | | Basophils | | | [facility] | | | | | | MEDICAL | | | | | | CENTER - | | | | | | LABORATORY | | + +---------+ + + + + + | Specimen | + + | | + + + + + + + | Performing | Address | City/State/Zipcode | Phone Number | | Organization | | | | + + + + + | [facility] | [address] | [place] | [phone] | | [facility] | | [address] | | | - LABORATORY | | | | + + + + + | [facility] | [address] | [place] | | | [facility] | | [address] | | | - LABORATORY | | | | + + + + + CT Renal Stone Wo Contrast (06/22/2011 6:30 PM PDT) + + | Specimen | + + | | + + + + + | Narrative | Performed At | + + + | [facility] Diagnostic Imaging Department | [facility] | | [address] [facility] | [facility] | | CT ABDOMEN RENAL STONE: | DIAG IMG | | 06/22/2011 CLINICAL HISTORY: FLANK PAIN. COMPARISON: | | | 08/25/2008. TECHNIQUE: Noncontrast imaging performed from the | | | mid liver through the pubic symphysis. FINDINGS: Small 2 mm | | | calcification in the distal right ureter, several centimeters proximal | | | to the u reterovesical junction. Proximal to this there is mild | | | dilatation of the ureter and intrarenal colle cting system on the | | | right. No perinephric stranding. No residual nephrolithiasis. | | | Left kidney is u nremarkable. Unenhanced visible portions of the | | | liver and spleen are unremarkable. The gallbladder is surgically | | | absent. There are no adrenal masses. The pancreas is unremarkable. | | | There is no evide nce for gastrointestinal tract obstruction. | | | Diverticular disease is present within the sigmoid. No evidence | | | for active diverticulitis. Central calcifications are present in the | | | otherwise unremarkable prostate gland. The bladder is not well | | | distended and thus poorly evaluated. Mild misting of the m | | | esenteric root associated with small lymph nodes. This is unchanged. | | | No aneurysmal dilatation of th e abdominal aorta. Shotty | | | retroperitoneal lymph nodes are present, unchanged. Lexy hepatic | | | lymph n odes are present and also unchanged. No acute osseous | | | abnormalities. Mild spondylolisthesis of L5 on S1 due to pars | | | defects. There also appears to be a split or fragment ed posterior | | | spinous process of L5. Mild retrolisthesis of L3 on L4 due to | | | degenerative disk changes . IMPRESSION: 1. A 2 MM MILDLY | | | OBSTRUCTING RIGHT DISTAL URETEROLITH. 2. LUMBAR SPONDYLOSIS | | | ABOVE. 3. DIVERTICULOSIS WITHOUT EVIDENCE OF ACTIVE | | | DIVERTICULITIS. COMMENT: PRELIMINARY REPORT WAS PROVIDED BY | | | GABY ON 06/22/2011, AT 8:15 P.M., [place] TIME . Dictated | | | Date/Time: 06/23/2011 09:00 Transcribed Date/Time: 06/23/2011 | | | 09:35 Heating And Cooling Systems Engineer: <Electronically Signed by Jw Jarrett | | | MD Mikael> 06/23/11 1006 | | + + + + + | Procedure Note | + + | Rao, Rad Conversion - 05/01/2013 5:01 PM [facility] | | Diagnostic Imaging Department [address] [place] [address] | | CT ABDOMEN RENAL STONE: 06/22/2011 CLINICAL HISTORY: | | FLANK PAIN. COMPARISON: 08/25/2008. TECHNIQUE: Noncontrast imaging performed from the | | mid liver through the pubic symphysis. FINDINGS: Small 2 mm calcification in the distal | | right ureter, several centimeters proximal to the ureterovesical junction. Proximal to | | this there is mild dilatation of the ureter and intrarenal collecting system on the | | right. No perinephric stranding. No residual nephrolithiasis. Left kidney is | | unremarkable. Unenhanced visible portions of the liver and spleen are unremarkable. | | The gallbladder is surgically absent. There are no adrenal masses. The pancreas is | | unremarkable. There is no evidence for gastrointestinal tract obstruction. | | Diverticular disease is present within the sigmoid. No evidence for active | | diverticulitis. Central calcifications are present in the otherwise unremarkable | | prostate gland. The bladder is not well distended and thus poorly evaluated. Mild | | misting of the mesenteric root associated with small lymph nodes. This is unchanged. | | No aneurysmal dilatation of the abdominal aorta. Shotty retroperitoneal lymph nodes are | | present, unchanged. Lexy hepatic lymph nodes are present and also unchanged. No | | acute osseous abnormalities. Mild spondylolisthesis of L5 on S1 due to pars defects. | | There also appears to be a split or fragmented posterior spinous process of L5. Mild | | retrolisthesis of L3 on L4 due to degenerative disk changes. IMPRESSION: 1. A 2 MM | | MILDLY OBSTRUCTING RIGHT DISTAL URETEROLITH. 2. LUMBAR SPONDYLOSIS ABOVE. 3. | | DIVERTICULOSIS WITHOUT EVIDENCE OF ACTIVE DIVERTICULITIS. COMMENT: PRELIMINARY REPORT | | WAS PROVIDED BY DR. GRIFFIN ON 06/22/2011, AT 8:15 P.M., [facility]. Dictated | | Date/Time: 06/23/2011 09:00Transcribed Date/Time: 06/23/2011 09:35Transcriptionist: | | <Electronically Signed by Jw Youssef MD> 06/23/11 1006 | | | |Mild spondylolisthesis of L5 on S1 due to pars defects. There also appears to be a split o r fragment | |ed posterior spinous process of L5. Mild retrolisthesis of L3 on L4 due to degenerative di sk changes | |. | | | |IMPRESSION: | |1. A 2 MM MILDLY OBSTRUCTING RIGHT DISTAL URETEROLITH. | | | |2. LUMBAR SPONDYLOSIS ABOVE. | | | |3. DIVERTICULOSIS WITHOUT EVIDENCE OF ACTIVE DIVERTICULITIS. | | | |COMMENT: PRELIMINARY REPORT WAS PROVIDED BY DR. GRIFFIN ON 06/22/2011, AT 8:15 P.M., [facility] TIME | |. | | | |Dictated Date/Time: 06/23/2011 09:00 | |Transcribed Date/Time: 06/23/2011 09:35 | |Heating And Cooling Systems Engineer: | |<Electronically Signed by Jw Youssef MD> 06/23/11 1006 | + + + +---------+ + + | Performing | Address | City/State/Zipcode | Phone Number | | Organization | | | | + +---------+ + + | [facility] | | | | | [facility] | | | | + +---------+ + + documented in this encounter Visit Diagnoses Not on filedocumented in this encounter"
--- OUTSIDE RECORDS SUMMARY | ~2019-03-29 | XMS | Encounter Summary ---
Demographics + + + | Address | [address] | | | [place] [address] | + + + | Home Phone | | + + + | Preferred Language | Unknown | + + + | Marital Status | Single | + + + | Latter-Day Affiliation | 1041 | + + + | Race | Unknown | + + + | Ethnic Group | Unknown | + + + Author + + + | Author | [facility] | | | and [place] | + + + | Organization | [facility] | | | and [place] [...] Team Providers + +------+ + | Care Relief Man Name | Role | Phone | + +------+ + | Yovani Alonso MD | PCP | | + +------+ + Encounter Details +--------+ + + + + | Date | Type | Department | Care Team | Description | +--------+ + + + + | 04/12/ | [facility] | [facility] | Donell Coats | Human | | 2015 | Encounter | [facility] CTR LAB[facility] | Brent WILL | immunodeficiency | | | | [address] | Brent Metz | virus (HIV) disease | | | | [place] | MD [address] | (HCC) (Primary Dx) | | | | [address] | [address] | | | | | [phone] | [place] [address] | | | | | | [phone] | | | | | | | [...] | 0 | 12/06/19 | | | (ROFL CARROLLALER) | daily | | | 12 | [...] | + +--------+ + + + | HIV 1, RNA, NAAT, | Routin | 04/12/2014 | Human | Results for this | | QUANT, | e | 10:29 AM | immunodeficiency | procedure are in the | | ULTRASENSITIVE | | PST | virus (HIV) disease | results section. | | | | | (HCC) | | + +--------+ + + + | CD4 T CELL PANEL | Routin | 04/12/2014 | Human | Results for this | | | e | 10:29 AM | immunodeficiency | procedure are in the | | | | PST | virus (HIV) disease | results section. | | | | | (HCC) | | + +--------+ + + + | CBC WITH | Routin | 04/12/2014 | Human | Results for this | | DIFFERENTIAL | e | 10:29 AM | immunodeficiency | procedure are in the | | | | PST | virus (HIV) disease | results section. | | | | | (HCC) | | + +--------+ + + + | COMPREHENSIVE | Routin | 04/12/2014 | Human | Results for this | | METABOLIC PANEL | e | 10:29 AM | immunodeficiency | procedure are in the | | | | PST | virus (HIV) disease | results section. | | | | | (HCC) | | + +--------+ + + + documented in this encounter Results HIV 1, RNA, NAAT, Quant, Ultrasensitive (04/12/2014 10:29 AM PST) + + + + + + | Component | Value | Ref Range | Performed | Pathologist | | | | | At | Signature | + + + + + + | HIV-1 VIRAL | Detected,<1.3 (A) | NOTDET Log | REFERENCE | | | RESULT | | copies/mL | [facility] | | | (REF) | | | | | + + + + + + | HIV-1 VIRAL | Detected,<20 (A) | NOTDET | REFERENCE | | | LOAD | | Copies/mL | [facility] | | | RESULT | | | | | + + + + + + | HIV-1 VIRAL | See CommentsComment: | | REFERENCE | | | LOAD | Reportable range HIV-1 | | [facility] | | | COMMENT | RNA 1.3 to 7.0 log | | | | | | copies/mL (20 to | | | | | | 10,000,000copies/mL.)Thi | | | | | | s assay was performed | | | | | | using the FDA approved | | | | | | Ramirez | | | | | | COBASAmpliPrep/Angeli | | | | | | Taqman HIV 1 test.This | | | | | | test is intended for use | | | | | | in conjunction with | | | | | | other laboratorymarkers | | | | | | as a prognostic | | | | | | indicator for patients | | | | | | with HIV 1 infection.It | | | | | | may also be used to aid | | | | | | in the assessment of | | | | | | viral response | | | | | | toantiretroviral | | | | | | treatment as measured by | | | | | | changes in plasma HIV 1 | | | | | | RNAlevels. A three fold | | | | | | (0.5 log) change in | | | | | | copies/mLs is | | | | | | usuallyconsidered to be | | | | | | clinically | | | | | | significant.Testing | | | | | | Performed: KEVIN, Emilee [address] | | | | | | [place] [address], [place] | | | | | | [address] | | | | + + + + + + + + | Specimen | + + | Blood specimen | | (specimen) | + + + + + + + | Performing | Address | City/State/Zipcode | Phone Number | | Organization | | | | + + + + + | [facility] | [address] | [place] [address] | [phone] | + + + + + CD4 T Cell Panel (04/12/2014 10:29 AM PST) + + + + + + | Component | Value | Ref Range | Performed | Pathologist | | | | | At | Signature | + + + + + + | CD4% | 42.6 | 30.0 - 65.0 % | REFERENCE | | | | | | [facility] | | + + + + + + | Specimen | Blood | | REFERENCE | | | Source | | | [facility] | | + + + + + + | WBC | 7.9 | 3.8 - 11.0 K/uL | REFERENCE | | | | | | [facility] | | + + + + + + | % | 26.4 | 15.0 - 48.0 % | REFERENCE | | | Lymphocytes | | | [facility] | | + + + + + + | Absolute | 2.10Comment: Testing | 1.00 - 3.90 | REFERENCE | | | Lymphocytes | Performed: Melody | K/uL | [facility] | | | | [facility] | | | | | | [place], [address], | | | | | | [place] [address] | | | | + + + + + + | CD4 | 895 | 490 - 1400 /uL | REFERENCE | | | ABSOLUTE | | | [facility] | | | (REF) | | | | | + + + + + + | Note: | See CommentsComment: | | REFERENCE | | | | Normal ranges based on | | [facility] | | | | whole blood.Result is a | | | | | | single test parameter | | | | | | which may be influenced | | | | | | by transporttimes, | | | | | | therapy, and associated | | | | | | disorders. More valid | | | | | | data include CD3,CD19, | | | | | | CD4, CD8, and CD4/CD8 | | | | | | ratio.This test was | | | | | | developed and its | | | | | | performance | | | | | | characteristics | | | | | | determinedby [facility] | | | | | | [facility] | | | | | | [place]. It has not been | | | | | | cleared orapproved by | | | | | | the U.S. Food and Drug | | | | | | Administration. The FDA | | | | | | hasdetermined that such | | | | | | clearance or approval is | | | | | | not necessary.This test | | | | | | is used for clinical | | | | | | purposes in many | | | | | | laboratories, and | | | | | | isnecessary for standard | | | | | | medical care. It should | | | | | | not be regarded | | | | | | asinvestigational or for | | | | | | research. This | | | | | | laboratory is certified | | | | | | underthe Clinical | | | | | | Laboratory Improvement | | | | | | Amendments of 1987 | | | | | | ("CLIA") asqualified to | | | | | | perform high complexity | | | | | | clinical testing.Testing | | | | | | Performed: [facility] | | | | | | [facility] | | | | | | Center, [address], | | | | | | [place] [address] | | | | + + + + + + + + | Specimen | + + | Blood specimen | | (specimen) | + + + + + + + | Performing | Address | City/State/Zipcode | Phone Number | | Organization | | | | + + + + + | [facility] | [address] | [place] [address] | [phone] | + + + + + Comprehensive Metabolic Panel (04/12/2014 10:29 AM PST) + + + + + + | Component | Value | Ref Range | Performed | Pathologist | | | | | At | Signature | + + + + + + | Na | 141 | 136 - 149 | [facility] | | | | | mmol/L | [facility] | | | | | | [facility] | | | | | | CENTER - | | | | | | LABORATORY | | + + + + + + | K | 3.7 | 3.5 - 5.1 | [facility] | | | | | mmol/L | [facility] | | | | | | MEDICAL | | | | | | CENTER - | | | | | | LABORATORY | | + + + + + + | Cl | 106 | 98 - 109 mmol/L | [facility] | | | | | | [facility] | | | | | | MEDICAL | | | | | | CENTER - | | | | | | LABORATORY | | + + + + + + | CO2 | 29 | 24 - 31 mmol/L | [facility] | | | | | | [facility] | | | | | | MEDICAL | | | | | | CENTER - | | | | | | LABORATORY | | + + + + + + | Anion Gap | 6 | 3 - 16 mmol/L | [facility] | | | | | | [facility] | | | | | | [facility] | | | | | | CENTER - | | | | | | LABORATORY | | + + + + + + | Glucose | 92 | 70 - 109 mg/dL | [facility] | | | | | | [facility] | [facility] | [facility] | [facility] | | | | | | CENTER - | | | | | | LABORATORY | | + + + + + + | BUN | 18 | 7 - 18 mg/dL | [facility] | | | | | | [facility] | | | [facility] | [facility] | | | | | | CENTER - | | | | | | LABORATORY | | + + + + + + | Creatinine | 0.88 | 0.60 - 1.30 | [facility] | | | | | mg/dL | [facility] | | | | | | [facility]ICAL | | | | | | CENTER - | | | | | | LABORATORY | | + + + + + + | eGFR if not | >60Comment: GLOMERULAR | >=60 | [facility] | | | | FILTRATION | mL/min/1.73m2 | [facility] | | | [place] | RATE,ESTIMATED | | MEDICAL | | | | mL/min/1.92a1Noqf than | | CENTER - | | [...] + + + + | Calcium | 8.8 | 8.3 - 10.5 | [facility] | | | | | mg/dL | [facility] | | | | | | [facility] | | | | | | CENTER - | | | | | | LABORATORY | | + + + + + + | Albumin | 3.6 | 3.2 - 5.0 g/dL | [facility] | | | | | | [facility] | | | | | | [facility] | | | | | | CENTER - | | | | | | LABORATORY | | + + + + + + | Bilirubin | 0.6 | 0.1 - 1.5 mg/dL | [facility] | | | Total | | | [facility] | | | | | | [facility]ICAL | | | | | | CENTER - | | | | | | LABORATORY | | + + + + + + | Total | 6.3 | 6.0 - 7.8 g/dL | [facility] | | | Protein | | | [facility] | | | | | | MEDICAL | | | | | | CENTER - | | | | | | LABORATORY | | + + + + + + | AST | 24 | 10 - 42 U/L | [facility] | | | | | | [facility] | | | | | | MEDICAL | | | | | | CENTER - | | | | | | LABORATORY | | + + + + + + | ALT | 30 | 6 - 45 U/L | [facility] | | | | | | [facility] | | | | | | MEDICAL | | | | | | CENTER - | | | | | | LABORATORY | | + + + + + + | Alkaline | 68 | 40 - 110 U/L | [facility] | | | Phosphatase | | | [facility] | | | | | | MEDICAL | | | | | | CENTER - | | | | | | LABORATORY | | + + + + + + | Globulin | 2.7 | g/dL | [facility] | | | | | | [facility] | | | | | | MEDICAL | | | | | | CENTER - | | | | | | LABORATORY | | + + + + + + | Albumin/Germania | 1.3 | | [facility] | | | bulin Ratio | | | [facility] | | | | | | MEDICAL | | | | | | CENTER - | | | | | | LABORATORY | | + + + + + + | BUN/Creatin | 20.5 | | [facility] | | | ine [...] + | [facility] | [address] | [place], [place] | [phone] | | [facility] | | [address] | | | - LABORATORY | | | | + + + + + | [facility] | [address] | [place], [place] | | | [facility] | | [address] | | | - LABORATORY | | | | + + + + + CBC with Differential (04/12/2014 10:29 AM PST) + +-------+ + + + | Component | Value | Ref Range | Performed | Pathologist | | | | | At | Signature | + +-------+ + + + | WBC | 7.5 | 4.0 - 11.0 K/uL | [facility] | | | | | | [facility] | | | | | | [facility] | | | | | | CENTER - | | | | | | LABORATORY | | + +-------+ + + + | RBC | 4.84 | 4.30 - 5.70 | [facility] | | | | | M/uL | [facility] | | | | | | MEDICAL | | | | | | CENTER - | | | | | | LABORATORY | | + +-------+ + + + | Hemoglobin | 15.1 | 13.5 - 18.0 | [facility] | | | | | g/dL | [facility] | | | | | | [facility]ICAL | | | | | | CENTER - | | | | | | LABORATORY | | + +-------+ + + + | Hematocrit | 45.7 | 40.0 - 51.0 % | [facility] | | | | | | [facility] | | | | | | MEDICAL | | | | | | CENTER - | | | | | | LABORATORY | | + +-------+ + + + | MCV | 94.3 | 83.0 - 101.0 fL | [facility] | | | | | | [facility] | | | | | | MEDICAL | | | | | | CENTER - | | | | | | LABORATORY | | + +-------+ + + + | MCH | 31.2 | 28.0 - 35.0 pg | [facility] | | | | | | [facility] | | | | | | MEDICAL | | | | | | CENTER - | | | | | | LABORATORY | | + +-------+ + + + | MCHC | 33.1 | 32.0 - 36.0 | [facility] | | | | | g/dL | [facility] | | | | | | MEDICAL | | | | | | CENTER - | | | | | | LABORATORY | | + +-------+ + + + | RDW-CV | 13.9 | <15.0 % | [facility] | | | | | | [facility] | | | | | | MEDICAL | | | | | | CENTER - | | | | | | LABORATORY | | + +-------+ + + + | Platelet | 335 | 140 - 440 K/uL | [facility] | | | Count | | | [facility] | | | | | | MEDICAL | | | | | | CENTER - | | | | | | LABORATORY | | + +-------+ + + + | MPV | 8.4 | fL | [facility] | | | | | | [facility] | | | | | | MEDICAL | | | | | | CENTER - | | | | | | LABORATORY | | + +-------+ + + + | % | 63.2 | 45.0 - 82.0 % | [facility] | | | Neutrophils | | | [facility] | | | | | | MEDICAL | | | | | | CENTER - | | | | | | LABORATORY | | + +-------+ + + + | % | 25.1 | 20.0 - 45.0 % | [facility] | | | Lymphocytes | | | [facility] | | | | | | MEDICAL | | | | | | CENTER - | | | | | | LABORATORY | | + +-------+ + + + | % Monocytes | 8.8 | 4.0 - 12.0 % | [facility] | | | | | | [facility] | | | | | | MEDICAL | | | | | | CENTER - | | | | | | LABORATORY | | + +-------+ + + + | % | 1.9 | 0.0 - 5.0 % | [facility] | | | Eosinophils | | | [facility] | | | | | | MEDICAL | | | | | | CENTER - | | | | | | LABORATORY | | + +-------+ + + + | % Basophils | 1.0 | 0.0 - 1.0 % | [facility] | | | | | | [facility] | | | | | | MEDICAL | | | | | | CENTER - | | | | | | LABORATORY | | + +-------+ + + + | Absolute | 4.80 | 1.80 - 8.50 | [facility] | | | Neutrophils | | K/uL | [facility] | | | | | | MEDICAL | | | | | | CENTER - | | | | | | LABORATORY | | + +-------+ + + + | Absolute | 1.90 | 0.60 - 3.20 | [facility] | | | Lymphocytes | | K/uL | [facility] | | | | | | MEDICAL | | | | | | CENTER - | | | | | | LABORATORY | | + +-------+ + + + | Absolute | 0.70 | 0.00 - 1.00 | [facility] | | | Monocytes | | K/uL | [facility] | | | | | | MEDICAL | | | | | | CENTER - | | | | | | LABORATORY | | + +-------+ + + + | Absolute | 0.10 | 0.00 - 0.40 | [facility] | | | Eosinophils | | K/uL | [facility] | | | | | | MEDICAL | | | | | | CENTER - | | | | | | LABORATORY | | + +-------+ + + + | Absolute | 0.10 | 0.00 - 0.10 | [facility] | | | Basophils | | K/uL | [facility] | | | | | | [...] + + | [facility] | [address] | [place] | [phone] | | [facility] | | [address] | | | - LABORATORY | | | | + + + + + | [facility] | [address] | [place], [place] | | | [facility] | | [address] | | | - LABORATORY | | | | + + + + + documented in this encounter Visit Diagnoses + + | Diagnosis | + + | Human immunodeficiency virus (HIV) disease (HCC) - Primary Human immunodeficiency | | virus [HIV] disease | + + documented in this encounter
--- OUTSIDE RECORDS SUMMARY | ~2019-03-29 | XMS | Encounter Summary ---
Demographics + + + | Address | [address] | | | [place] [address] | + + + | Home Phone | | + + + | Preferred Language | Unknown | + + + | Marital Status | Single | + + + | Mu-Ism Affiliation | 1041 | + + + | Race | Unknown | + + + | Ethnic Group | Unknown | + + + Author + + + | Author | [facility] | | | and [place] | + + + | Organization | [facility] | | | and [...] Team Providers + +------+ + | Care Computational Mathematician Name | Role | Phone | + +------+ + PCP | Unavailable | + +------+ + Encounter Details +--------+ + + + + | Date | Type | Department | Care Team | Description | +--------+ + + + + | 12/17/ | Hospital | [facility] | Jarod Chaves | | | 2008 | Encounter | MED CTR EMER[facility]ENCY | MD [address] | | | | | CENTER [address] | [facility] | | | | | [place], [place] | [place] [address] | | | | | [address] | [phone] | | | | | [phone] | | | +--------+ + + + [...]
--- OUTSIDE RECORDS SUMMARY | ~2019-03-29 | XMS | Encounter Summary ---
Demographics + + + | Address | [address] | | | [place] [address] | + + + | Home Phone | | + + + | Preferred Language | Unknown | + + + | Marital Status | Single | + + + | Buddhist Affiliation | 1041 | + + + | Race | Unknown | + + + | Ethnic Group | Unknown | + + + Author + + + | Author | [facility] | | | and [place] | + + + | Organization | [facility] | [...] Team Providers + +------+ + | Care Malted Milk Supervisor Name | Role | Phone | + +------+ + PCP | Unavailable | + +------+ + Encounter Details +--------+ + + + + | Date | Type | Department | Care Team | Description | +--------+ + + + + | 10/21/ | Hospital | [facility] | Yovani Alonso MD | | | 2011 | Encounter | MED CTR XRAY [address] | [address] [facility] | | | | | [place] | [place] | | | | | [place] [address] | [address] | | | | | [phone] | | | +--------+ + + + [...] Performed At | + + + | [facility] Diagnostic Imaging Department | [facility] | | [address] [facility] | [facility] | | THREE VIEWS BILATERAL KNEES, | [...] Transcribed Date/Time: 10/22/2011 08:30 | | | Venereal Disease Investigator: <Electronically Signed by Grupo Bernal, | | | MD> 10/22/11 0842 | | + + + + + | Procedure Note | + + | Rao, Rad Conversion - 05/01/2013 5:46 PM [facility] | | Diagnostic Imaging Department [address] [place] [address] | | THREE VIEWS BILATERAL KNEES, 10/22/11 [...] 08:26 | |Transcribed Date/Time: 10/22/2011 08:30 | |Venereal Disease Investigator: | |<Electronically Signed by Grupo Bernal MD> 10/22/1142 | + + + +---------+ + + | Performing | Address | City/State/Zipcode | Phone Number | | Organization | | | | + +---------+ + + | [place] | | | | | [facility] | | | | + +---------+ + + documented in this encounter Visit Diagnoses Not on filedocumented in this encounter"
--- OUTSIDE RECORDS SUMMARY | ~2019-03-29 | XMS | Encounter Summary ---
Demographics + + + | Address | [address] | | | [place] [address] | + + + | Home Phone | | + + + | Preferred Language | Unknown | + + + | Marital Status | Single | + + + | Sabianism Affiliation | 1041 | + + + | Race | Unknown | + + + | Ethnic Group | Unknown | + + + Author + + + | Author | [facility] | | | and [place] | + + + | Organization | [facility] | | | and [place] [...] Team Providers + +------+ + | Care Sheet Metal Worker Maintenance Name | Role | Phone | + +------+ + PCP | Unavailable | + +------+ + Encounter Details +--------+ + + + + | Date | Type | Department | Care Team | Description | +--------+ + + + + | 02/05/ | Hospital | [facility] | Man Madden, | | | 2006 | Encounter | MED CTR XRAY [address] | [address] | | | | | [place] | [place] | | | | | [place] [address] | [address] | | | | | [phone] | | | +--------+ + + + [...]
--- OUTSIDE RECORDS SUMMARY | ~2019-03-29 | XMS | Encounter Summary ---
Demographics + + + | Address | [address] | | | [place] [address] | + + + | Home Phone | | + + + | Preferred Language | Unknown | + + + | Marital Status | Single | + + + | Sikhism Affiliation | 1041 | + + + | Race | Unknown | + + + | Ethnic Group | Unknown | + + + Author + + + | Author | [facility] | | | and [place]ayana | + + + | Organization | [facility] | | | and [place]ayana | [...] Team Providers + +------+ + | Care Brush Cutter Name | Role | Phone | + +------+ + | Yovani Alonso MD | PCP | | + +------+ + Reason for Referral Diagnostic/Screening (Routine) +--------+--------+ + + + + | Status | Reason | Specialty | Diagnoses / | Referred By | Referred To | | | | | Procedures | Contact | Contact | +--------+--------+ + + + + | Closed | | Radiology | Diagnoses | Maxood, | [facility] | | | | | CAD | Russel | Medicine | | | | | (coronary | MD Juice | [address] | | | | | artery | [address] | [place], | | | | | disease) | [place] | [place] | | | | | Procedures | [place] | [address] | | | | | [place] Nuclear | [address] | Phone: | | | | | Stress Test | Phone: | [phone] | | | | | (Vasodilator | [phone] | Fax: | | | | | ) CHG | Fax: | [phone] | | | | | MYOCARDIAL | [phone] | | | | | | SPECT | | | | | | | MULTIPLE | | | | | | | STUDIES [place] | | | | | | | CV STRS TST | | | | | | | XERS&/OR RX | | | | | | | CONT ECG W/O | | | | | | | I&R [place] | | | | | | | CARDIAC | | | | | | | STRESS | | | | | | | TST,INTERP/R | | | | | | | EPT ONLY | | | +--------+--------+ + + + + Reason for Visit + + + | Reason | Comments | + + + | New Patient | | + + + | Device Check | | | (In-office) | | + + + Evaluate & Treat (Routine) +--------+--------+ + + + + | Status | Reason | Specialty | Diagnoses / | Referred By | Referred To | | | | | Procedures | Contact | Contact | +--------+--------+ + + + + | Closed | | Cardiology | Diagnoses | Gavin, | Андрей, | | | | | | Yovani Frazier MD | Russel | | | | | Uncontrolled | [address] | MD Juice | | | | | | Catie Garcia. | [address] | | | | | hypertension | [place], | [place] | | | | | Procedures | [place] [address] | [place], [place] | | | | | [place] OFFICE | Phone: | [phone] Phone: | | | | | CONSULTATION | [phone] | [phone] | | | | | NEW/ESTAB | Fax: | Fax: | | | | | PATIENT 30 | [phone] | [phone] | | | | | MIN | | | +--------+--------+ + + + + Encounter Details +--------+---------+ + + + | Date | Type | Department | Care Team | Description | +--------+---------+ + + + | 03/03/ | Office | [facility] | Russel Chiang | HTN (hypertension) | | 2013 | Visit | CARDIOLOGY [address] | MD Juice [address] | (Primary Dx); CAD | | | | [address] [place], | [address] [place] | (coronary artery | | | | [place] [address] | [place] [address] | disease); Venous | | | | [phone] | [phone] | insufficiency | | | | | | | [...] + + + | Blood Pressure | - | - | | + + + + + | Pulse | 88 | 03/03/2014 9:04 AM | | | | | PST | | + + + + + | Temperature | - | - | | + + + + + | Respiratory Rate | 16 | 03/03/2014 9:04 AM | | | | | PST | | + + + + + | Oxygen Saturation | - | - | | + + + + + | Inhaled Oxygen | - | - | | | Concentration | | | | + + + + + | Weight | 97.1 kg (214 lb) | 03/03/2014 9:04 AM | | | | | PST | | + + + + + | Height | 182.9 cm (6') | 03/03/2014 9:04 AM | | | | | PST | | + + + + + | Body Mass Index | 29.02 | 03/03/2014 9:04 AM | | | | | PST | | + + + + + documented in this encounter Patient Instructions Patient Instructions Memo Foreman RN - 03/03/2014 10:02 AM PST1. Schedule a Persantine Cardiac Stress Test 2. Schedule a Bilateral Lower Extremity Duplex Ultrasound Test 3. Wait for call from Dr. Xie regarding Referral for Sleep study 4. Make a follow-up appointment in two months. documented in this encounter Progress Notes Russel Chiang MD - 03/03/2014 9:14 AM PSTFormatting of this note might be differe nt from the original. PATIENT NAME: Junior Roque Jr. : 1960: AGE: 53 y.o. REFERRED BY: Yovani Alonso PRIMARY CARE: Yovani Alonso MD NEW PATIENT OFFICE VISIT Date of Service: 03/03/2014 HISTORY OF PRESENT ILLNESS: Junior Roque Jr. [...] (human immunodeficiency virus infection) Hypertension Peripheral edema MEDICAL, SURGICAL, AND PERSONAL HISTORY Past Surgical History Procedure Date Appendectomy Cholecystectomy Leg surgery right Lung surgery Kidney stone surgery x2, [facility] Family History Problem Relation Age of [...] Age Father 64 heart attack Mother Alive Brother Alive Maternal Grandmother Maternal Grandfather Paternal Grandmother Paternal Grandfather History Social History Marital Status: Single Spouse Name: N/A Number of Children: 0 Years of Education: N/A Occupational History Disability Social History Main Topics Smoking status: Current Every Day Smoker -- 0.3 packs/day for 38 years Types: Cigarettes Smokeless tobacco: Never Used Comment: light smoker one cigarette a week Alcohol Use: No Drug Use: No Sexually Active: Yes -- Male partner(s) Other Topics Concern None Social History Narrative [...] once daily TRUVADA 200-300 MG per tablet ALLERGIES Allergies Allergen Reactions Amoxicillin Penicillins ROS [...] hematuria and flank pain. Musculoskeletal: Negative for back pain, falls, joint pain, myalgias and neck pain. Skin: Negative for itching and rash. Neurological: Positive for dizziness, weakness and headaches. Negative for tingling, tremor s, sensory change, speech change and seizures. Endo/Heme/Allergies: Does not bruise/bleed easily. Psychiatric/Behavioral: Negative for memory loss. The patient is not nervous/anxious. OBJECTIVE: PHYSICAL EXAM Pulse 88 | Resp 16 | Ht 1.829 m (6') | Wt 97.07 kg (214 lb) | BMI 29.02 kg/m2 Physical Exam Vitals reviewed. Constitutional: He is oriented to person, place, and time. He appears well-developed and we ll-nourished. HENT: Head: Normocephalic and atraumatic. Eyes: Conjunctivae normal and EOM are normal. Neck: Normal range [...] minimal pitting and bilateral chronic venous stasis le es and varicosities. Psychiatric: He has a normal mood and affect. ECG: Reviewed by me today shows normal sinus rhythm, heart rate 79, normal ECG. LAB RESULTS: LIPID No results found for this basename: chol, trig, ldlcalc, hdl, ldl, calculated, cholhdl, ldl ex, hdlex, trigex, cholex CHEMISTRY Lab Results Component Value Date GLU 97 06/26/2013 NA 136 06/26/2013 K 2.9* 06/26/2013 CL 103 06/26/2013 CO2 25 06/26/2013 CALCIUM 8.4 06/26/2013 ALKPHOS 115* 02/15/2013 AST 22 02/15/2013 ALT 29 02/15/2013 BILITOT 0.6 02/15/2013 CREA 1.03 06/26/2013 BUN 23* 06/26/2013 EGFR >60 02/16/2013 EGFREX >60 04/14/2013 CREEX 1.05 04/14/2013 HEMATOLOGY Lab Results Component Value Date WBC 15.4* 06/26/2013 HGB 14.1 06/26/2013 HCT 42.8 06/26/2013 PLT 257 06/26/2013 HbA1c 5.5 I reviewed records from PCP for office visit on 01/12/14. Echocardiogram 2013 interpreted and reviewed by me LVEF 63%, no significant valvular diseas e, grade 1 LV diastolic dysfunction. ASSESSMENT: 1. Hypertension - patient name may have multiple contributors to suboptimal control, inclu ding possible underlying untreated obstructive sleep apnea, inactivity and chronic deconditi oning. I have asked the patient to obtain a digital arm blood pressure cuff and maintain a diary o f ambulatory readings. He may benefit from titration of his amlodipine. I've also asked hi m to take his atenolol and a twice-daily fashion. 2. obstructive sleep apnea - patient has a STOP-BANG score of at least 4. No one is at [facility] to observe him sleep. He has not been told of snoring in the past. He does admit to [facility] gokul fatigue and lack of energy in the morning. He would benefit from further consultation a nd undergoing a PSG. We will refer him to Dr. Xie. 3. Risk assessment - patient has coronary disease risk factors of gender, and suboptimal b lood pressure control. He is minimally active and complains of significant exertional fatig ue. He would benefit from undergoing a stress perfusion imaging study - he would be unable to complete a treadmill stress protocol. 4. Lower extremity edema - patient has changes consistent with chronic venous stasis altho ugh he has no known history of DVTs or PTE. We will have him undergo a bilateral lower extr emity duplex venous ultrasound study. Appearance of his minimal right-sided ankle edema is not consistent with that secondary to amlodipine. PLAN: 1. Increase atenolol dosing. 2. Consultation and further testing for JAG. 3. Stress perfusion imaging study. 4. Bilateral lower extremity venous duplex ultrasound study. 5. Followup visit in a few weeks. 6. Obtained digital arm blood pressure cuff and maintain an ambulatory diary. Portions of this report were transcribed using voice recognition software. Every effort wa s made to ensure accuracy; however, inadvertent computerized treating and pumping supervisor errors may be pre sent. Electronically signed by: Andrez Chiang MD PhD [facility] 03/03/2014 documented in t his encounter Plan of Treatment + +------+--------+ + + | Name | Type | Priori | Associated Diagnoses | Order Schedule | | | | ty | | | + +------+--------+ + + | ECG 12 lead | ECG | Routin | HTN (hypertension) | Ordered: 03/03/2014 | | | | e | | | + +------+--------+ + + documented as of this encounter Results NM Nuclear Stress Test (Vasodilator) (04/13/2014 10:33 AM PST) + + | Specimen | + + | | + + + + + | Impressions | Performed At | + + + | 1. Pharmacologic stress without diagnostic ECG changes or | [facility] | | symptoms. 2. Normal LV size and systolic function with LVEF 61%. | [facility] | | 3. No significant fixed or ischemic perfusion abnormalities noted. | [facility] | | 4. Overall this is a low-risk stress perfusion imaging study. | - IMAGING | | Signed by: Andrez Chiang MD PhD [facility]ACC 04/13/2014, 10:34 | | + + + + + + | Narrative | Performed At | + + + | NUCLEAR MEDICINE STRESS TEST REPORT | [facility] | | Patient Name: Junior Roque Jr. Study Date: 04/12/2014 | [facility] | | Primary Care Provider: Yovani Alonso MD : | [facility] | | 1960 Age: 53 y.o. Gender: male CLINICAL | - IMAGING | | HISTORY/DIAGNOSIS: CAD PERSANTINE SESTAMIBI STRESS TEST | | | Indication: CAD Procedure: In the supine position, 56.3 mg of | | | Persantine was infused intravenously over 4 minutes. Blood | | | pressure and EKG were monitored every 1 minute. 5 mL of normal | | | saline was utilized to flush the IV line. 2.5 minutes later, 31.3 | | | mCi sestamibi intravenous injection. SPECT myocardial perfusion | | | imaging was acquired with wall motion analysis. Rest imaging was | | | performed using 34.5 mCi Sestamibi intravenous injection. Repeated | | | SPECT myocardial perfusion imaging was acquired with wall motion | | | analysis. At the end of the procedure, 75 mg of aminophylline was | | | infused intravenously. Hemodynamics: Heart rate baseline | | | 69 beats per minute, peak a 91 beats per minute. Blood pressure | | | baseline 143/86 mmHg, peak 159/86 mmHg. EKG baseline underlying | | | sinus rhythm. Normal EKG. Peak unchanged. Side Effects: | | | None. Arrhythmia: None. Persantine Sestamibi Myocardial | | | Perfusion Imaging Result: The tomographic images, reviewed | | | without the attenuation compensation resolution, revealed a normal | | | myocardial perfusion pattern as seen in short axis, vertical long | | | axis, and horizontal long axis projections. Mild inferior | | | attenuation artifact is noted The left ventricular cavity is normal. | | | The rest imaging is also normal. Gated SPECT reveals a | | | normal left ventricular wall thickness and motion. Preserved left | | | ventricular systolic function. LVEF by gated SPECT is 61% post | | | stress. | | + + + + + | Procedure Note | + + | Russel Chiang MD - 04/15/2014 7:59 PM PST Formatting of this note might be | | different from the original. NUCLEAR MEDICINE STRESS TEST REPORT Patient Name: | | Junior Roque Jr. Study Date: 04/12/2014 Primary Care Provider: Yovani Alonso MD | | : 1960 Age: 53 y.o. Gender: male CLINICAL | | HISTORY/DIAGNOSIS: CAD PERSANTINE SESTAMIBI STRESS TESTIndication: CAD Procedure: In | | the supine position, 56.3 mg of Persantine was infused intravenously over 4 minutes. | | Blood pressure and EKG were monitored every 1 minute. 5 mL of normal saline was | | utilized to flush the IV line. 2.5 minutes later, 31.3 mCi sestamibi intravenous | | injection. SPECT myocardial perfusion imaging was acquired with wall motion analysis. | | Rest imaging was performed using 34.5 mCi Sestamibi intravenous injection. Repeated | | SPECT myocardial perfusion imaging was acquired with wall motion analysis. At the end | | of the procedure, 75 mg of aminophylline was infused intravenously.Hemodynamics: Heart | | rate baseline 69 beats per minute, peak a 91 beats per minute. Blood pressure baseline | | 143/86 mmHg, peak 159/86 mmHg. EKG baseline underlying sinus rhythm. Normal EKG. Peak | | unchanged.Side Effects: None.Arrhythmia: None.Persantine Sestamibi Myocardial | | Perfusion Imaging Result: The tomographic images, reviewed without the attenuation | | compensation resolution, revealed a normal myocardial perfusion pattern as seen in short | | axis, vertical long axis, and horizontal long axis projections. Mild inferior | | attenuation artifact is noted The left ventricular cavity is normal. The rest imaging is | | also normal. Gated SPECT reveals a normal left ventricular wall thickness and | | motion. Preserved left ventricular systolic function. LVEF by gated SPECT is 61% post | | stress. IMPRESSION: 1. Pharmacologic stress without diagnostic ECG changes or | | symptoms.2. Normal LV size and systolic function with LVEF 61%.3. No significant fixed | | or ischemic perfusion abnormalities noted.4. Overall this is a low-risk stress | | perfusion imaging study.Signed by: Andrez Chiang MD PhD [facility]AC 04/13/2014, 10:34 | | | |Side Effects: None. | | | |Arrhythmia: None. | | | |Persantine Sestamibi Myocardial Perfusion Imaging Result: | | The tomographic images, reviewed without the attenuation compensation resolution, revealed a normal myocardial perfusion pattern as seen in short axis, vertical long axis, and horizo ntal long axis projections. | |Mild inferior attenuation artifact is noted The left ventricular cavity is normal. The rest imaging is also normal. | | | | Gated SPECT reveals a normal left ventricular wall thickness and motion. Preserved left v entricular systolic function. LVEF by gated SPECT is 61% post stress. | | | |IMPRESSION: | | | |1. Pharmacologic stress without diagnostic ECG changes or symptoms. | |2. Normal LV size and systolic function with LVEF 61%. | |3. No significant fixed or ischemic perfusion abnormalities noted. | |4. Overall this is a low-risk stress perfusion imaging study. | | | | | | | | | |Signed by: Andrez Chiang MD PhD [facility] | | 04/13/2014, 10:34 | + + + + + + + | Performing | Address | City/State/Zipcode | Phone Number | | Organization | | | | + + + + + | [facility] | [address] | [place], [place] | [phone] | | [facility] | | [address] | | | - IMAGING | | | | + + + + + VAS Lower Extremity Venous Bilateral (04/12/2014 12:33 PM PST) + + | Specimen | + + | | + + + + + | Narrative | Performed At | + + + | LOWER EXTREMITY VENOUS ULTRASOUND: 04/12/2014 12:03 PM CLINICAL | [facility] | | HISTORY: venous insufficency FINDINGS: The deep veins of the | LAB | | bilateral lower extremity are evaluated using coleman scale and Doppler | | | modality. Vessels show normal hypoechoic appearance. Doppler reveals | | | normal venous flow characteristics including normal respiratory | | | phasicity and normal augmentation and Valsalva responses. The vessels | | | are fully compressible throughout their imaged length. During | | | augmentation maneuvers no retrograde flow is seen, suggesting normal | | | venous valve function. No adjacent abnormalities are seen. | | | IMPRESSION - No sonographic evidence of deep venous thrombosis of the | | | bilateral lower extremity. Dictated and Signed by: Eladio Gill MD Electronically signed: 04/12/2014 3:51 PM | | + + + + + | Procedure Note | + + | Rao, Rad Results In - 04/12/2014 3:54 PM PST LOWER EXTREMITY VENOUS ULTRASOUND: | | 04/12/2014 12:03 PMCLINICAL HISTORY: venous insufficencyFINDINGS: The deep veins of the | | bilateral lower extremity are evaluated usinggray scale and Doppler modality. Vessels | | show normal hypoechoic appearance.Doppler reveals normal venous flow characteristics | | including normal respiratoryphasicity and normal augmentation and Valsalva responses. | | The vessels are fullycompressible throughout their imaged length. During augmentation | | maneuvers noretrograde flow is seen, suggesting normal venous valve function. No | | adjacentabnormalities are seen.IMPRESSION - No sonographic evidence of deep venous | | thrombosis of the bilaterallower extremity.Dictated and Signed by: Eladio Gill MD | | Electronically signed: 04/12/2014 3:51 PM | |abnormalities are seen. | | | |IMPRESSION - No sonographic evidence of deep venous thrombosis of the bilateral | |lower extremity. | | | |Dictated and Signed by: Eladio Gill MD | | Electronically signed: 04/12/2014 3:51 PM | + + + +---------+ + + | Performing | Address | City/State/Zipcode | Phone Number | | Organization | | | | + +---------+ + + | [facility] | | | [phone] | + +---------+ + + | [facility] | | | | + +---------+ + + documented in this encounter Visit Diagnoses + + | Diagnosis | + + | HTN (hypertension) - Primary Unspecified essential hypertension | + + | CAD (coronary artery disease) Coronary atherosclerosis of unspecified type of vessel, | | red devil or graft | + + | Venous insufficiency Unspecified venous (peripheral) insufficiency | + + documented in this encounter"
--- OUTSIDE RECORDS SUMMARY | ~2019-03-29 | XMS | Encounter Summary ---
Demographics + + + | Address | [address] | | | [place] [address] | + + + | Home Phone [...] Author + + + | Author | [facility] | | | and [place] | + + + | Organization | [facility] | | | and [place] | [...] Team Providers + +------+ + | Care Grading Machine Feeder Name | Role | Phone | + +------+ + PCP | Unavailable | + +------+ + Encounter Details +--------+ + + + + | Date | Type | Department | Care Team | Description | +--------+ + + + + | 01/29/ | Hospital | [facility] | | | | 2006 | Encounter | MED CTR EMERGENCY | | | | | | CENTER [address] | | | | | | [place] | | | | | | [address] | | | | | | [phone] | | | +--------+ + + + [...]
--- OUTSIDE RECORDS SUMMARY | ~2019-03-29 | XMS | Encounter Summary ---
Demographics + + + | Address | [address] | | | [place] [address] | + + + | Home Phone | | + + + | Preferred Language | Unknown | + + + | Marital Status | Single | + + + | Sabianist Affiliation | 1041 | + + + | Race | Unknown | + + + | Ethnic Group | Unknown | + + + Author + + + | Author | [facility] | | | and [place] | + + + | Organization | [facility] | | | and [place] | [...] Team Providers + +------+ + | Care Manufacturing Engineer Automotive Name | Role | Phone | + +------+ + PCP | Unavailable | + +------+ + Encounter Details +--------+ + + + + | Date | Type | Department | Care Team | Description | +--------+ + + + + | 11/15/ | Hospital | [facility] | Rashel Mcdonald, | | | 2005 | Encounter | MED CTR XRAY [address] | | | | | [place] | [place] | | | | | [place] [address] | [address] | | | | | [phone] | | | +--------+ + + + [...]
--- OUTSIDE RECORDS SUMMARY | ~2019-03-29 | XMS | Encounter Summary ---
Demographics + + + | Address | [address] | | | [place] [address] | + + + | Home Phone | | + + + | Preferred Language | Unknown | + + + | Marital Status | Single | + + + | Jain Affiliation | 1041 | + + + | Race | Unknown | + + + | Ethnic Group | Unknown | + + + Author + + + | Author | [facility] | | | and [place] | + + + | Organization | [facility] | | | [...] Team Providers + +------+ + | Care Report Analyst Name | Role | Phone | + +------+ + PCP | Unavailable | + +------+ + Encounter Details +--------+ + + + + | Date | Type | Department | Care Team | Description | +--------+ + + + + | 11/25/ | Hospital | [facility] | | | | 2006 - | Encounter | MED CTR EMERGENCY | | | | | | [place] [address] | | | | 12/03/ | | [place] | | | | 2006 | | [address] | | | | | | [phone] | | | +--------+ + + + [...]
--- OUTSIDE RECORDS SUMMARY | ~2019-03-29 | XMS | Encounter Summary ---
Demographics + + + | Address | [address] | | | [place] [address] | + + + | Home Phone [...] Author + + + | Author | [facility] | | | and [place] | + + + | Organization | [facility] | | | and [...] Team Providers + +------+ + | Care Invoice Control Clerk Name | Role | Phone | + +------+ + PCP | Unavailable | + +------+ + Encounter Details +--------+ + + + + | Date | Type | Department | Care Team | Description | +--------+ + + + + | 06/25/ | Hospital | [facility] | Jarod Chaves | | | 2009 | Encounter | MED CTR EMERGENCY | MD [address] | | | | | CENTER [address] | [place] [facility] | | | | | [place], [place] | [facility] [address] | | | | | [address] | [phone] | | | | | [phone] | | | +--------+ + + + [...]
--- OUTSIDE RECORDS SUMMARY | ~2019-03-29 | XMS | Encounter Summary ---
Demographics + + + | Address | [address] | | | [place] [address] | + + + | Home Phone | | + + + | Preferred Language | Unknown | + + + | Marital Status | Single | + + + | Denominational Affiliation | 1041 | + + + | Race | Unknown | + + + | Ethnic Group | Unknown | + + + Author + + + | Author | [facility] | | | and [place] | + + + | Organization | [facility] | | | and [place] [...] Team Providers + +------+ + | Care Electrician Crane Maintenance Name | Role | Phone | + +------+ + PCP | Unavailable | + +------+ + Encounter Details +--------+ + + + + | Date | Type | Department | Care Team | Description | +--------+ + + + + | 12/17/ | Hospital | [facility] | Jarod Chaves | | | 2008 | Encounter | MED CTR EMERGENCY | MD [address] | | | | | CENTER [address] | [place] [facility] | | | | | [place], [place] | [place] [address] | | | | | [address] | [phone] | | | | | [phone] | | | +--------+ + + + [...]
--- OUTSIDE RECORDS SUMMARY | ~2019-03-29 | XMS | Encounter Summary ---
Demographics + + + | Address | [address] | | | [place] [address] | + + + | Home Phone [...] | Author | [facility] | | | and Chayana | + + + | Organization | [facility] | | | and Chayana [...] Team Providers + +------+ + | Care Events Administrative Assistant Name | Role | Phone | + +------+ + PCP | Unavailable | + +------+ + Encounter Details +--------+ + + + + | Date | Type | Department | Care Team | Description | +--------+ + + + + | 07/21/ | Hospital | [facility] | | | | 2007 | Encounter | [facility] | | | | | | CENTER [address] | | | | | | [place] | | | | | | [address] | | | | | | [phone] | | | +--------+ + + + [...]
--- OUTSIDE RECORDS SUMMARY | ~2019-03-29 | XMS | Encounter Summary ---
Demographics + + + | Address | [address] | | | [place] [address] | + + + | Home Phone | | + + + | Preferred Language | Unknown | + + + | Marital Status | Single | + + + | Jehovah'S Witness Affiliation | 1041 | + + + | Race | Unknown | + + + | Ethnic Group | Unknown | + + + Author + + + | Author | [facility] | | | and [place]ayana | + + + | Organization | [facility] | | | and [...] Team Providers + +------+ + | Care Face Worker Name | Role | Phone | + +------+ + PCP | Unavailable | + +------+ + Encounter Details +--------+ + + + + | Date | Type | Department | Care Team | Description | +--------+ + + + + | 09/05/ | Hospital | [facility] | | | | 2009 | Encounter | [facility] EM[facility] | | | | | | CENTER [address] | | | | | | [place] | | | | | | [address] | | | | | | [phone] | | | +--------+ + + + [...]
--- OUTSIDE RECORDS SUMMARY | ~2019-03-29 | XMS | Encounter Summary ---
Demographics + + + | Address | [address] | | | [place] [address] | + + + | Home Phone | | + + + | Preferred Language | Unknown | + + + | Marital Status | Single | + + + | Mu-Ism Affiliation | 1041 | + + + | Race | Unknown | + + + | Ethnic Group | Unknown | + + + Author + + + | Author | [facility] | | | and [place]ayana | + + + | Organization | [facility] | | | and [place] [...] Team Providers + +------+ + | Care Psychological Tests Sales Agent Name | Role | Phone | + +------+ + | Yovani Alonso MD | PCP | | + +------+ + Encounter Details +--------+ + + + + | Date | Type | Department | Care Team | Description | +--------+ + + + + | 04/12/ | [facility] | [facility] | Russel Chiang | Venous insufficiency | | 2014 | Encounter | MED CTR ULTRASOUND | MD Juice [address] | | | | | [address] | [address] [place] | | | | | [place] | [place] [address] | | | | | [address] | [phone] | | | | | [phone] | | | | | | | Priscilla Mims | | | | | | Unruly, Technologist | | | | | | [place], [place] | | | | | | [address] | | +--------+ + + + + [...] | 0 | 12/06/19 | | | (ROLF FISHERJEMALALER) | daily | | | 12 | [...] | + +--------+ + + + | VAS LOWER EXTREMITY | Routin | 04/12/2014 | Venous | Results for this | | VENOUS BILATERAL | e | 12:33 PM | insufficiency | procedure are in the | | | | PST | | results section. | + +--------+ + + + documented in this encounter Results VAS Lower Extremity Venous Bilateral (04/12/2014 12:33 [...] lower extremity. Dictated and Signed by: Eladio Jean | | MD Jairo Electronically signed: 04/12/2014 3:51 PM | | [...] + | MISCELLANEOUS LAB | | | [phone] | + +---------+ + + | MISCELANIOUS LAB | | | [phone] | + +---------+ + + documented in this encounter Visit Diagnoses + + | Diagnosis | + + | Venous insufficiency Unspecified venous (peripheral) insufficiency | + + documented in this encounter"
--- OUTSIDE RECORDS SUMMARY | ~2019-03-29 | XMS | Encounter Summary ---
Demographics + + + | Address | [address] | | | [place] [address] | + + + | Home Phone | | + + + | Preferred Language | Unknown | + + + | Marital Status | Single | + + + | Episcopal Affiliation | 1041 | + + + | Race | Unknown | + + + | Ethnic Group | Unknown | + + + Author + + + | Author | [facility] | | | and [place]ayana | + + + | Organization | [facility] | | | and [place] [...] Team Providers + +------+ + | Care Steam Boiler Fireman Name | Role | Phone | + +------+ + | Yovani Alonso MD | PCP | | + +------+ + Reason for Visit + + + | Reason | Comments | + + + | Flank Pain | | + + + Encounter Details +--------+ + + + + | Date | Type | Department | Care Team | Description | +--------+ + + + + | 08/24/ | Emergency | [facility] | Man Gibbs, | Acute left flank | | 2015 | | MED CTR EM[facility]Y | MD [address] | pain (Primary Dx); | | | | CENTER [address] | [place], [place] | Ureterolithiasis | | | | [place], [place] | [address] | | | | | [address] | | | | | | [phone] | | | +--------+ + + + [...] + + + | Blood Pressure | 128/85 | 08/24/2014 8:08 PM | | | | | PDT | | + + + + + | Pulse | 85 | 08/24/2014 8:08 PM | | | | | PDT | | + + + + + | Temperature | 36.6 C (97.9 F) | 08/24/2014 7:03 PM | | | | | PDT | | + + + + + | Respiratory Rate | 16 | 08/24/2014 8:08 PM | | | | | PDT | | + + + + + | Oxygen Saturation | 95% | 08/24/2014 8:08 PM | | | | | PDT | | + + + + + | Inhaled Oxygen | - | - | | | Concentration | | | | + + + + + | Weight | 84.8 kg (187 lb) | 08/24/2014 7:03 PM | | | | | PDT | | + + + + + | Height | 182.9 cm (6' 0.01") | 08/24/2014 7:03 PM | | | | | PDT | | + + + + + | Body Mass Index | 25.36 | 08/24/2014 7:03 PM | | | | | PDT | | + + + + + documented in this encounter Discharge Instructions AttachmentsThe following attachments cannot be sent through Care Everywhere.KIDNEY STONE W/ COLIC (GREEK)documented in this encounter Medications at Time of [...] + +---------+ + + | amLODIPine | Take 1 tablet by | 30 | 6 | 05/03/19 | | | (NORVASC) 10 MG | mouth Daily. | tablet | | 15 | | | tablet | | | [...] + + + +---------+ + + | ibuprofen | Take 600 mg by mouth | | 0 | | | | (ADVIL,MOTRIN) 600 | every 6 hours as | | | | | | MG tablet | needed for Pain. | | | | | + + [...] + + + +---------+ + + | oxyCODONE | Take 1-2 tablets by | 30 | 0 | 08/25/19 | | | (ROXICODONE) 5 mg | mouth every 4 hours | tablet | | 15 | | | tablet | as needed for Pain. | | | | | + + + +---------+ + + | promethazine | Take 1 tablet by | 56 | 0 | 08/25/19 | | | (PHENERGAN) 25 mg | mouth every 4 hours | tablet | | 15 | | | tablet | as needed. | | | | | + + [...] + +---------+ + + | tamsulosin | Take 1 capsule by | 30 | 0 | 08/25/19 | | | (FLOMAX) 0.4 mg CAPS | mouth Daily. | capsule | | 15 | | + + + +---------+ + [...] + +--------+ + + + | URINALYSIS WITH | STAT | 08/24/2014 | | Results for this | | MICROSCOPIC WITH | | 7:35 PM | | procedure are in the | | CULTURE IF INDICATED | | PDT | | results section. | + +--------+ + + + | CULTURE, URINE | Routin | 08/24/2014 | | Results for this | | | e | 7:35 PM | | procedure are in the | | | | PDT | | results section. | + +--------+ + + + | CBC W/AUTO | STAT | 08/24/2014 | | Results for this | | DIFFERENTIAL | | 7:34 PM | | procedure are in the | | | | PDT | | results section. | + +--------+ + + + | COMPREHENSIVE | STAT | 08/24/2014 | | Results for this | | METABOLIC PANEL | | 7:34 PM | | procedure are in the | | | | PDT | | results section. | + +--------+ + + + documented in this encounter Results Culture, Urine (08/24/2014 7:35 PM PDT) + + + + + + | Component | Value | Ref Range | Performed | Pathologist | | | | | At | Signature | + + + + + + | Culture | No Growth | | [facility] | | | | | [facility] | | [facility] | | | | | | C[facility] - | | | | | | LABORATORY | | + + + + + + + + | Specimen | + + | Urine | + + + + + + + | Performing | Address | City/State/Zipcode | Phone Number | | Organization | | | | + + + + + | [facility] | [address] | [place] | [phone] | | [facility] | | [address] | | | - LABORATORY | | | | + + + + + Urinalysis with Microscopic with Culture if Indicated (08/24/2014 7:35 PM PDT) + + + + + + | Component | Value | Ref Range | Performed | Pathologist | | | | | At | Signature | + + + + + + | Color | Yellow | Light Yellow, | [facility] | | | | | Yellow | [facility] | | | | | | MEDICAL | | | | | | CENTER - | | | | | | LABORATORY | | + + + + + + | Clarity | Clear | Clear | [facility] | | | | | | [facility] | | | | | | MEDICAL | | | | | | CENTER - | | | | | | LABORATORY | | + + + + + + | pH, Urine | 6.5 | 5.0 - 8.0 | [facility] | | | | | | [facility] | | | | | | MEDICAL | | | | | | CENTER - | | | | | | LABORATORY | | + + + + + + | Specific | 1.025 | 1.001 - 1.030 | [facility] | | | [place] | | | [facility] | | | | | | MEDICAL | | | | | | CENTER - | | | | | | LABORATORY | | + + + + + + | Protein, | Negative | Negative | [facility] | | | Urine | | | [facility] | | | | | | MEDICAL | | | | | | CENTER - | | | | | | LABORATORY | | + + + + + + | Blood, | Small (A) | Negative | [facility] | | | Urine | | | [facility] | | | | | | MEDICAL | | | | | | CENTER - | | | | | | LABORATORY | | + + + + + + | Glucose, | Negative | Negative | [facility] | | | Urine | | | [facility] | | | | | | MEDICAL | | | | | | CENTER - | | | | | | LABORATORY | | + + + + + + | Ketones, | Trace (A) | Negative | [facility] | | | Urine | | | [facility] | | | | | | MEDICAL | | | | | | CENTER - | | | | | | LABORATORY | | + + + + + + | Bilirubin, | Negative | Negative | [facility] | | | Urine | | | [facility] | | | | | | MEDICAL | | | | | | CENTER - | | | | | | LABORATORY | | + + + + + + | Nitrite, | Negative | Negative | [facility] | | | Urine | | | [facility] | | | | | | MEDICAL | | | | | | CENTER - | | | | | | LABORATORY | | + + + + + + | Leukocyte | Negative | Negative | [facility] | | | Esterase, | | | [facility] | | | Urine | | | MEDICAL | | | | | | CENTER - | | | | | | LABORATORY | | + + + + + + | Urobilinoge | 1.0 E.U./dL | 0.2 E.U./dL, | [facility] | | | n, Urine | | 1.0 E.U./dL | [facility] | | | | | | MEDICAL | | | | | | CENTER - | | | | | | LABORATORY | | + + + + + + | WBC UA | 0-2 | 0 - 2 /HPF | [facility] | | | | | | [facility] | | | | | | MEDICAL | | | | | | CENTER - | | | | | | LABORATORY | | + + + + + + | RBC UA | 5-10 (A) | 0 - 2 /HPF | [facility] | | | | | | [facility] | | | | | | MEDICAL | | | | | | CENTER - | | | | | | LABORATORY | | + + + + + + | SQUAMOUS | 2-5 (A) | 0 - 2 /LPF | [facility] | | | EPITHELIAL | | | [facility] | | | UA | | | MEDICAL | | | | | | CENTER - | | | | | | LABORATORY | | + + + + + + | BACTERIA UA | 1+ (A) | Negative /HPF | [facility] | | | | | | [facility] | | | | | | MEDICAL | | | | | | CENTER - | | | | | | LABORATORY | | + + + + + + | CALCIUM | Few (A) | None Seen /HPF | [facility] | | | OXALATE | | | [facility] | | | CRYSTALS UA | | | MEDICAL | | | | | | CENTER - | | | | | | LABORATORY | | + + + + + + | MUCUS UA | Present (A) | Negative /LPF | [facility] | | | | | | [facility] | | | | | | MEDICAL | | | | | | CENTER - | | | | | | LABORATORY | | + + + + + + | URINE | Urine Culture Set Up | | [facility] | | | COMMENT | | | [facility] | | | | | | MEDICAL | | | | | | CENTER - | | | | | | LABORATORY | | + + + + + + + + | Specimen | + + | Urine | + + + + + + + | Performing | Address | City/State/Zipcode | Phone Number | | Organization | | | | + + + + + | [facility] | [address] | [place] | [phone] | | [facility] | | [address] | | | - LABORATORY | | | | + + + + + Comprehensive Metabolic Panel (08/24/2014 7:34 PM PDT) + + + + + + | Component | Value | Ref Range | Performed | Pathologist | | | | | At | Signature | + + + + + + | Na | 140 | 136 - 149 | [facility] | | | | | mmol/L | [facility] | | | | | | MEDICAL | | | | | | CENTER - | | | | | | LABORATORY | | + + + + + + | K | 3.1 (L) | 3.5 - 5.1 | [facility] [...] + + + | Anion Gap | 5 | 3 - 16 mmol/L | [facility] | | | | | | [facility] | | | | | | MEDICAL | | | | | | CENTER - | | | | | | LABORATORY | | + + + + + + | Glucose | 97 | 70 - 109 mg/dL | [facility] | | | | | | [facility] | | | | | | MEDICAL | | | | | | CENTER - | | | | | | LABORATORY | | + + + + + + | BUN | 10 | 7 - 18 mg/dL | [facility] | | | | | | [facility] | | | | | | MEDICAL | | | | | | CENTER - | | | | | | LABORATORY | | + + + + + + | Creatinine | 0.89 | 0.60 - 1.30 | [facility] | [...] | | FILTRATION | mL/min/1.73m2 | [facility] | | | [place] | RATE,ESTIMATED | | MEDICAL | | | | mL/min/1.04r5Szoc than | | CENTER - | | [...] + + + + | Calcium | 8.3 | 8.3 - 10.5 | [facility] | | | | | mg/dL | [facility] | | | | | | MEDICAL | | | | | | CENTER - | | | | | | LABORATORY | | + + + + + + | Albumin | 3.4 | 3.2 - 5.0 g/dL | [facility] | | | | | | [facility] | | | | | | MEDICAL | | | | | | CENTER - | | | | | | LABORATORY | | + + + + + + | Bilirubin | 0.3 | 0.1 - 1.5 mg/dL | [facility] | | | Total | | | [facility] | | | | | | MEDICAL | | | | | | CENTER - | | | | | | LABORATORY | | + + + + + + | Total | 5.4 (L) | 6.0 - 7.8 g/dL | [facility] | | | Protein | | | [facility] | | | | | | MEDICAL | | | | | | CENTER - | | | | | | LABORATORY | | + + + + + + | AST | 22 | 10 - 42 U/L | [facility] | | | | | | [facility] | | | | | | MEDICAL | | | | | | CENTER - | | | | | | LABORATORY | | + + + + + + | ALT | 21 | 6 - 45 U/L | [facility] | | | | | | [facility] | | | | | | MEDICAL | | | | | | CENTER - | | | | | | LABORATORY | | + + + + + + | Alkaline | 78 | 40 - 110 U/L | [facility] | | | Phosphatase | | | [facility] | | | | | | MEDICAL | | | | | | CENTER - | | | | | | LABORATORY | | + + + + + + | Globulin | 2.0 | g/dL | [facility] | | | | | | [facility] | | | | | | MEDICAL | | | | | | CENTER - | | | | | | LABORATORY | | + + + + + + | Albumin/Germania | 1.7 | | [facility] | | | bulin Ratio | | | [facility] | | | | | | MEDICAL | | | | | | CENTER - | | | | | | LABORATORY | | + + + + + + | BUN/Creatin | 11.2 | | [facility] | | | ine [...] + | [facility] | [address] | [place] | [phone] | | [facility] | | [address] | | | - LABORATORY | | | | + + + + + CBC w/ Auto Differential (08/24/2014 7:34 PM PDT) + + + + + + | Component | Value | Ref Range | Performed | Pathologist | | | | | At | Signature | + + + + + + | WBC | 11.7 (H) | 4.0 - 11.0 K/uL | [facility] | | | | | | [facility] | | | | | | MEDICAL | | | | | | CENTER - | | | | | | LABORATORY | | + + + + + + | RBC | 4.51 | 4.30 - 5.70 | [facility] | | | | | M/uL | [facility] | | | | | | MEDICAL | | | | | | CENTER - | | | | | | LABORATORY | | + + + + + + | Hemoglobin | 14.2 | 13.5 - 18.0 | [facility] | | | | | g/dL | [facility] | | | | | | MEDICAL | | | | | | CENTER - | | | | | | LABORATORY | | + + + + + + | Hematocrit | 41.4 | 40.0 - 51.0 % | [facility] | | | | | | [facility] | | | | | | MEDICAL | | | | | | CENTER - | | | | | | LABORATORY | | + + + + + + | MCV | 91.8 | 83.0 - 101.0 fL | [facility] | | | | | | [facility] | | | | | | MEDICAL | | | | | | CENTER - | | | | | | LABORATORY | | + + + + + + | MCH | 31.5 | 28.0 - 35.0 pg | [facility] | | | | | | [facility] | | | | | | MEDICAL | | | | | | CENTER - | | | | | | LABORATORY | | + + + + + + | MCHC | 34.3 | 32.0 - 36.0 | [facility] | | | | | g/dL | [facility] | | | | | | MEDICAL | | | | | | CENTER - | | | | | | LABORATORY | | + + + + + + | RDW-CV | 13.6 | <15.0 % | [facility] | | | | | | [facility] | | | | | | MEDICAL | | | | | | CENTER - | | | | | | LABORATORY | | + + + + + + | Platelet | 275 | 140 - 440 K/uL | [facility] | | | Count | | | [facility] | | | | | | MEDICAL | | | | | | CENTER - | | | | | | LABORATORY | | + + + + + + | MPV | 8.5 | fL | [facility] | | | | | | [facility] | | | | | | MEDICAL | | | | | | CENTER - | | | | | | LABORATORY | | + + + + + + | % | 60.7 | 45.0 - 82.0 % | [facility] | | | Neutrophils | | | [facility] | | | | | | MEDICAL | | | | | | CENTER - | | | | | | LABORATORY | | + + + + + + | % | 25.1 | 20.0 - 45.0 % | [facility] | | | Lymphocytes | | | [facility] | | | | | | MEDICAL | | | | | | CENTER - | | | | | | LABORATORY | | + + + + + + | % Monocytes | 10.8 | 4.0 - 12.0 % | [facility] | | | | | | [facility] | | | | | | MEDICAL | | | | | | CENTER - | | | | | | LABORATORY | | + + + + + + | % | 2.5 | 0.0 - 5.0 % | [facility] | | | Eosinophils | | | [facility] | | | | | | MEDICAL | | | | | | CENTER - | | | | | | LABORATORY | | + + + + + + | % Basophils | 0.9 | 0.0 - 1.0 % | [facility] | | | | | | [facility] | | | | | | MEDICAL | | | | | | CENTER - | | | | | | LABORATORY | | + + + + + + | Absolute | 7.10 | 1.80 - 8.50 | [facility] | | | Neutrophils | | K/uL | [facility] | | | | | | MEDICAL | | | | | | CENTER - | | | | | | LABORATORY | | + + + + + + | Absolute | 2.90 | 0.60 - 3.20 | [facility] | | | Lymphocytes | | K/uL | [facility] | | | | | | MEDICAL | | | | | | CENTER - | | | | | | LABORATORY | | + + + + + + | Absolute | 1.30 (H) | 0.00 - 1.00 | [facility] | | | Monocytes | | K/uL | [facility] | | | | | | MEDICAL | | | | | | CENTER - | | | | | | LABORATORY | | + + + + + + | Absolute | 0.30 | 0.00 - 0.40 | [facility] | [...] | | Basophils | | K/uL | [facility] | | | | | | [...] [address] | [place] | [phone] | | [facility] | | [address] | | | - LABORATORY | | | | + + + + + documented in this encounter Visit Diagnoses + + | Diagnosis | + + | Acute left flank pain - Primary Abdominal pain, unspecified site | + + | Ureterolithiasis Calculus of ureter | + + documented in this encounter Administered Medications + +--------+ +------+------+------+ | Medication Order | MAR | Action | Dose | Rate | Site | | | Action | Date | | | | + +--------+ +------+------+------+ | HYDROmorphone (DILAUDID) | Given | 08/25/19 | 1 mg | | | | injection 1 mg 1 mg, | | 15 7:27 | | | | | Intravenous, ONCE, e 08/24/14 at | | PM PDT | | | | | 1930, For 1 dose | | | | | | + +--------+ +------+------+------+ +---+---+ | | | +---+---+ + +-------+ +-------+---+---+ | ketorolac (TORADOL) injection | Given | 08/25/19 | 30 mg | | | | 30 mg 30 mg, Intravenous, ONCE, | | 15 7:31 | | | | | Sat08/24/14 at 1930, For 1 dose | | PM PDT | | | | + +-------+ +-------+---+---+ +---+---+ | | | +---+---+ + +-------+ +------+---+---+ | ondansetron (ZOFRAN) injection | Given | 08/25/19 | 8 mg | | | | 8 mg 8 mg, Intravenous, ONCE, | | 15 7:26 | | | | | 08/24/14 at 1930, For 1 dose | | PM PDT | | | | + +-------+ +------+---+---+ +---+---+ | | | +---+---+ + + + + +---+---+ | oxyCODONE-acetaminophen | Dispense | 08/25/19 | 1 tablet | | | | (PERCOCET) 5-325 mg per tablet | to Home | 15 8:08 | | | | | (ED prepack) 1-2 tablet 1-2 | | PM PDT | | | | | tablet, Oral, ONCE, Sat08/24/14 at | | | | | | | 2015, For 1 dose, 1-2 tablet(s) | | | | | | | every 6 hours prn pain Dispense | | | | | | | for home use., | | | | | | + + + + +---+---+ +---+---+ | | | +---+---+ + +---------+ +--------+-------+---+ | sodium chloride 0.9% (NS) bolus | New Bag | 08/25/19 | 1,000 | 4000 | | | 1,000 mL 1,000 mL, Intravenous, | | 15 7:33 | mLs | mL/hr | | | Administer over 15 Minutes, | | PM PDT | | | | | ONCE, Mckayla 08/24/14 at 1930, For 1 | | | | | | | dose | | | | | | + +---------+ +--------+-------+---+ +---+---+ | | | +---+---+ documented in this encounter
--- OUTSIDE RECORDS SUMMARY | ~2019-03-29 | XMS | Encounter Summary ---
Demographics + + + | Address | [address] | | | [place] [address] | + + + | Home Phone | | + + + | Preferred Language | Unknown | + + + | Marital Status | Single | + + + | Gnosticist Affiliation | 1041 | + + + | Race | Unknown | + + + | Ethnic Group | Unknown | + + + Author + + + | Author | [facility] | | | and [place] | + + + | Organization | [facility] | | | and [place] | [...] Team Providers + +------+ + | Care Stator Tester Name | Role | Phone | + +------+ + PCP | Unavailable | + +------+ + Encounter Details +--------+ + + + + | Date | Type | Department | Care Team | Description | +--------+ + + + + | 07/23/ | Hospital | [facility] | | | | 2005 | Encounter | MED CTR GENERIC OP | | | | | | CONV DEPT [address] | | | | | | [place], | | | | | | [place] [address] | | | | | | [phone] | | | +--------+ + + + [...]
--- OUTSIDE RECORDS SUMMARY | ~2019-03-29 | XMS | Encounter Summary ---
Demographics + + + | Address | [address] | | | [place] [address] | + + + | Home Phone | | + + + | Preferred Language | Unknown | + + + | Marital Status | Single | + + + | Islam Affiliation | 1041 | + + + | Race | Unknown | + + + | Ethnic Group | Unknown | + + + Author + + + | Author | [facility] | | | and [place] | + + + | Organization | [facility] | | | and [...] Team Providers + +------+ + | Care Retail Operations Specialist Name | Role | Phone | + +------+ + PCP | Unavailable | + +------+ + Encounter Details +--------+ + + + + | Date | Type | Department | Care Team | Description | +--------+ + + + + | 11/05/ | Hospital | [facility] | [place], | | | 2006 | Encounter | MED CTR EMERGENCY | Noel Tolliver MD [address] | | | | | CENTER [address] | [facility] | | | | | [place] | [facility] [place] [address] | | | | | [address] | [phone] | | | | | [phone] | | | +--------+ + + + [...]
--- OUTSIDE RECORDS SUMMARY | ~2019-03-29 | XMS | Encounter Summary ---
Demographics + + + | Address | [address] | | | [place] [address] | + + + | Home Phone | | + + + | Preferred Language | Unknown | + + + | Marital Status | Single | + + + | Pentecostal Affiliation | [id number] | + + + | Race | Unknown | + + + | Ethnic Group | Unknown | + + + Author + + + | Author | [facility] | | | and [place] | + + + | Organization | [facility] | | | and [place] [...] Team Providers + +------+ + | Care French Translator Name | Role | Phone | + +------+ + PCP | Unavailable | + +------+ + Encounter Details +--------+ + + + + | Date | Type | Department | Care Team | Description | +--------+ + + + + | 08/28/ | Hospital | [facility] | Rashel Mcdonald, | | | 2005 | Encounter | [facility]RAY [address] | | | | | [place] | [place] | | | | | [place] [address] | [id number] | | | | | [phone] | | | +--------+ + + + [...]
--- OUTSIDE RECORDS SUMMARY | ~2019-03-29 | XMS | Encounter Summary ---
Demographics + + + | Address | [address] | | | [place] [address] | + + + | Home Phone | | + + + | Preferred Language | Unknown | + + + | Marital Status | Single | + + + | Rastafarian Affiliation | 1041 | + + + | Race | Unknown | + + + | Ethnic Group | Unknown | + + + Author + + + | Author | [facility] | | | and [place]ayana | + + + | Organization | [facility] | | | and [...] Team Providers + +------+ + | Care Cosmetic Surgeon Name | Role | Phone | + +------+ + | Yovani Alonso MD | PCP | | + +------+ + Reason for Visit + + + | Reason | Comments | + + + | Hand Pain | Room 2 Possible bug bite to left index finger. Noticed it this | | | am. | + + + Encounter Details +--------+---------+ + + + | Date | Type | Department | Care Team | Description | +--------+---------+ + + + | 05/26/ | Office | [facility] | Elle Masters | Audie of | | 2015 | Visit | CARE [address] | Jeremias Zavala MD | finger, left | | | | [place] | [address] | (Primary Dx) | | | | [address] | [place] | | | | | [phone] | [id number] | | | | | | | [...] in this encounter Patient Instructions Patient Instructions Elle Masters Jr., MD - 05/27/2015 6:25 PM PSTRecheck in 4 days Take medication as directed documented in this encounter Progress Notes Elle Masters Jr., MD - 05/27/2015 6:50 PM PSTJunior Roque Jr. presents w ith a one-day history of pain and swelling of the paronychial tissues of the left index fing er. No prior history of similar problems. He has no other symptoms. Physical exam: No acute distress, nontoxic in appearance BP 164/107 mmHg | Pulse 96 | Temp(Src) 37.1 C (98.8 F) (Temporal) | Resp 16 | Ht 1.854 m (6' 1") | Wt 97.523 kg (215 lb) | BMI 28.37 kg/m2 | SpO2 97% Left index finger: Paronychia on the radial side with a large pus pocket Procedure: A digital block was performed with 1% plain, after good anesthesia the pus pocke t was opened up with a #11 blade with drainage of a significant amount of pus-a culture was taken and the wound was dressed Diagnosis: Paronychia left index finger Plan: Clindamycin, recheck in 4 days for culture result in for reevaluation, VicodinElectro nically signed by Elle Masters Jr., MD at 05/27/2015 6:52 PM PSTdocumented in thi s encounter Plan of Treatment Not on filedocumented as of this encounter Procedures + +--------+ + + + | Procedure Name | Priori | Date/Time | Associated Diagnosis | Comments | | | ty | | | | + +--------+ + + + | CULTURE, WOUND, | Routin | 05/27/2015 | Paronychia of | Results for this | | SMEAR | e | 6:27 PM | finger, left | procedure are in the | | | | PST | | results section. | + +--------+ + + + documented in this encounter Results Culture, Wound, Smear (05/27/2015 6:27 PM PST) + + + + + + | Component | Value | Ref Range | Performed | Pathologist | | | | | At | Signature | + + + + + + | Culture | 4+ Staphylococcus | | [facility] | | | | aureus,Methicillin | | [facility] | | | | resistant (MRSA)Comment: | | MEDICAL | | | | *INFECTION PREVENTION | | CENTER - | | | | ALERT - MRSA* CONTACT | | LABORATORY | | | | PRECAUTIONS REQUIRED. | | | | + + + + + + | Gram Stain | 2+ White Blood Cells | | [facility] | | | Result | | | [facility] | | | | | | MEDICAL | | | | | | CENTER - | | | | | | LABORATORY | | + + + + + + | Gram Stain | 2+ Gram positive cocci | | [facility] | | | Result | | | [facility] | | | | | | MEDICAL | | | | | | CENTER - | | | | | | LABORATORY | | + + + + + + + + | Specimen | + + | Wound - Entire | | finger (body | | structure) | + + + + +--------+ + | Organism | Antibiotic | Method | Susceptibility | + + +--------+ + | Staphylococcus | Ciprofloxacin | | >=8: Resistant | | aureus,Methicillin | | | | | resistant (MRSA) | | | | + + +--------+ + | Staphylococcus | Clindamycin | | <=0.25: Sensitive | | aureus,Methicillin | | | | | resistant (MRSA) | | | | + + +--------+ + | Staphylococcus | Levofloxacin | | 4: Resistant | | aureus,Methicillin | | | | | resistant (MRSA) | | | | + + +--------+ + | Staphylococcus | Oxacillin | | >=4: Resistant | | aureus,Methicillin | | | | | resistant (MRSA) | | | | + + +--------+ + | Staphylococcus | Penicillin G | | >=0.5: Resistant | | aureus,Methicillin | | | | | resistant (MRSA) | | | | + + +--------+ + | Staphylococcus | Rifampin | | <=0.5: Sensitive | | aureus,Methicillin | | | | | resistant (MRSA) | | | | + + +--------+ + +---+ + | | Comment: Rifampin | | | should not be used | | | alone for | | | chemotherapy. | +---+ + + + +---+ + | Staphylococcus | Tetracycline | | <=1: Sensitive | | aureus,Methicillin | | | | | resistant (MRSA) | | | | + + +---+ + | Staphylococcus | Trimethoprim + | | <=10: Sensitive | | aureus,Methicillin | Sulfamethoxazole | | | | resistant (MRSA) | | | | + + +---+ + | Staphylococcus | Vancomycin | | 1: Sensitive | | aureus,Methicillin | | | | | resistant (MRSA) | | | | + + +---+ + + + + + + | Performing | Address | City/State/Zipcode | Phone Number | | Organization | | | | + + + + + | [facility] | [address] | [place] | [phone] | | [facility] | | [address] | | | - LABORATORY | | | | + + + + + documented in this encounter Visit Diagnoses + + | Diagnosis | + + | Paronychia of finger, left - Primary | + + documented in this encounter
--- OUTSIDE RECORDS SUMMARY | ~2019-03-29 | XMS | Encounter Summary ---
Demographics + + + | Address | [address] | | | [place] [address] | + + + | Home Phone | | + + + | Preferred Language | Unknown | + + + | Marital Status | Single | + + + | Nondenominational Affiliation | 1041 | + + + | Race | Unknown | + + + | Ethnic Group | Unknown | + + + Author + + + | Author | [facility] | | | and [place] | + + + | Organization | [facility] [...] Team Providers + +------+ + | Care Unitizer Name | Role | Phone | + +------+ + PCP | Unavailable | + +------+ + Encounter Details +--------+ + + + + | Date | Type | Department | Care Team | Description | +--------+ + + + + | 07/07/ | Hospital | [facility] | | | | 2007 | Encounter | [facility] | | | | | | CENTER [address] | | | | | | [place] | | | | | | [address] | | | | | | [phone] | | | +--------+ + + + [...]
--- OUTSIDE RECORDS SUMMARY | ~2019-03-29 | XMS | Encounter Summary ---
Demographics + + + | Address | [address] | | | [place] [address] | + + + | Home Phone | | + + + | Preferred Language | Unknown | + + + | Marital Status | Single | + + + | Uatsdin Affiliation | 1041 | + + + | Race | Unknown | + + + | Ethnic Group | Unknown | + + + Author + + + | Author | [facility] | | | and [place] | + + + | Organization | [facility] | | | and [...] Providers + +------+ + | Care Supervisor [facility] Name | Role | Phone | + +------+ + | Yovani Alonso MD | PCP | | + +------+ + Encounter Details +--------+ + + + + | Date | Type | Department | Care Team | Description | +--------+ + + + + | 07/22/ | Hospital | [facility] | [place], | | | 2012 | Encounter | [facility] | Noel Tolliver MD [address] | | | | CENTER [address] | [address] | | | | | [place] | [place] [address] | | | | | [address] | [phone] | | | | | [phone] | | | +--------+ + + + [...] Comments | + + +---------+ + | Not Asked | | | | + + +---------+ [...] 0 | 12/06/19 | | | (JOHNSONIVA PHILLIPJEMALALER) | daily | | | 12 | [...] + +--------+ + + + | XR FOOT RIGHT 3 + VW | Routin | 07/22/2012 | | Results for this | | | e | 11:20 AM | | procedure are in the | | | | PDT | | results section. | + +--------+ + + + documented in this encounter Results XR Foot Right 3 + Vw (07/22/2012 11:20 AM PDT) + + | Specimen | + + | | + + + + + | Narrative | Performed At | + + + | [facility] | [facility] | | Department [address] [facility] | [facility] | | [ rep [address]] [ rep [facility] | | [facility]] Signed | - IMAGING | | | | | Patient Name: DWAINE VEGA | | | Physician: APPLE : 1960 Age: 52 Sex: M Unit | | | #: [id number] Exam Date: 07/22/12 Location: | | | ER Report #: [id number] Page: | | | %(RAD)RES..mtdd.print.filter("pg") of %(RAD) | | | RES..mtdd.print.filter("tpg") | | | | | | Accession Number: [id number] | | | RIGHT FOOT X-RAY CLINICAL HISTORY: CELLULITIS. | | | EVALUATE FOR OSTEOMYELITIS. COMPARISON: None. | | | FINDINGS: Three views of the right foot were obtained. | | | There are no acute osseous abnormalities. No erosive changes are | | | seen to suggest osteomyelitis. Mild degenerative changes are noted | | | of the tibiotalar joint with osteophytosis. A moderate-sized spur | | | is observed of the posterior calcaneus. Tiny spur is noted of the | | | inferior calculus. IMPRESSION: NO EROSIVE | | | CHANGES TO SUGGEST OSTEOMYELITIS. IF CLINICALLY INDICATED, MRI CAN | | | BE CONSIDERED FOR FURTHER EVALUATION. | | | Dictated Date/Time: 07/22/2012 11:20 Transcribed Date/Time: | | | 07/22/2012 14:13 [employer]: | | | <<Signature on File>> | | | Ga | | | MD Clif07/22/12 [id number] <Electronically signed by Ga Menezes MD> | | | Ga Menezes MD 07/22/12 1120 [employer]ining: Avis | | | [email or web address]/30/13 [id number] Noel Sims MD | | | | | + + + + + + + + | Performing | Address | City/State/Zipcode | Phone Number | | Organization | | | | + + + + + | [facility] | [address] | [place] | [phone] | | [facility] | | [address] | | | - IMAGING | | | | + + + + + documented in this encounter Visit Diagnoses Not on filedocumented in this encounter
--- OUTSIDE RECORDS SUMMARY | ~2019-03-29 | XMS | Encounter Summary ---
Demographics + + + | Address | [address] | | | [place] [address] | + + + | Home Phone [...] + | Author | [facility] | | | and Chayana | + + + | Organization | [facility] | | | [...] Team Providers + +------+ + | Care Alligator Hunter Name | Role | Phone | + [...] + + | Closed | Specialty | Sleep | Diagnoses | Rojas | Zack Sleep | | | Services | Medicine | JAG | Ubaldo Hirsch | [place] [address] | | | Required | | (obstructive | [address] | [place] | | | | | sleep | Jaime Funez | [place], | | | | | apnea) | [place] | [place] [address] | | | | | Organic | [place] | Phone: | | | | | insomnia | [phone] | [phone] | | | | | Sleepiness | Phone: | Fax: | | | | | Essential | [phone] | [phone] | | | | | hypertension | Fax: | | | | | | Procedures | [phone] | | | | | | [place] POLYSOM | | | | | | | 6/>YRS | | | | | | | SLEEP 4/> | | | | | | | ADDL KENNEDI | | | | | | | ATTND NPSG | | | +--------+ + + + + + Reason for Visit +---------+ + | Reason | Comments | +---------+ + | Consult | | +---------+ + Evaluate & Treat (Routine) +--------+--------+ + + + + | Status | Reason | Specialty | Diagnoses / | Referred By | Referred To | | | | | Procedures | Contact | Contact | +--------+--------+ + + + + | Closed | | Sleep | Diagnoses | Андрей, | Rojas, | | | | Medicine | JAG | Russel | Ubaldo Hirsch | | | | | (obstructive | MD Juice | [address] | | | | | sleep | [address] [place] | [place] | | | | | apnea) | [place] | [place] | | | | | Procedures | [place], [place] | [place] | | | | | [place] OFFICE | [address] | [address] Phone: | | | | | CONSULTATION | Phone: | [phone] | | | | | NEW/ESTAB | [phone] | Fax: | | | | | PATIENT 40 | Fax: | [phone] | | | | | MIN [place] | [phone] | | | | | | OFFICE | | | | | | | OUTPATIENT | | | | | | | NEW 30 | | | | | | | MINUTES | | | +--------+--------+ + + + + Encounter Details +--------+---------+ + + + | Date | Type | Department | Care Team | Description | +--------+---------+ + + + | 04/19/ | Office | [facility] | Ubadlo Xie | JAG (obstructive | | 2015 | Visit | SLEEP DISORDER [address] | [address] | sleep apnea) | | | | [address] [place] | [address] [address] [place] | (Primary Dx); | | | | [place] [address] | [place] [address] | Organic insomnia; | | | | [phone] | [phone] | Sleepiness; | | | | | | Essential | | | | | | hypertension; COPD | | | | | | (chronic obstructive | | | | | | pulmonary disease) | | | | | | (HCC); Fatigue; HIV | | | | | | (human | | | | | | immunodeficiency | | | | | | virus infection) | | | | | | (HCC) | +--------+---------+ + + + Social History [...] + + + | Blood Pressure | 140/92 | 04/19/2014 2:20 PM | | | | | PST | | + + + + + | Pulse | 87 | 04/19/2014 2:20 PM | | | | | PST | | + + + + + | Temperature | - | - | | + + + + + | Respiratory Rate | 16 | 04/19/2014 2:20 PM | | | | | PST | | + + + + + | Oxygen Saturation | 98% | 04/19/2014 2:20 PM | | | | | PST | | + + + + + | Inhaled Oxygen | - | - | | | Concentration | | | | + + + + + | Weight | 95.9 kg (211 lb 8 | 04/19/2014 2:20 PM | | | | oz) | PST | | + + + + + | Height | 176.5 cm (5' 9.5") | 04/19/2014 2:20 PM | | | | | PST | | + + + + + | Body Mass Index | 30.79 | 04/19/2014 2:20 PM | | | | | PST | | + + + + + documented in this encounter Patient Instructions Patient Instructions Ubaldo Xie Jr., MD - 04/19/2014 3:37 PM PST What Are Snoring and Sleep Apnea? If you ve ever had a stuffed-up nose, you know the feeling of trying to breathe through a very narrow passageway. This is what happens in your throat when you snore. While you sleep , structures in your throat partially block your air passage, making the passage narrow and hard to breathe through. If the entire passage becomes blocked and you can t breathe at al l, you have sleep apnea. Snoring If your throat structures are too large or the muscles relax too much during sleep, the air passage may be partially blocked. As air from the nose or mouth passes around this blockage , the throat structures vibrate, causing the familiar sound of snoring. At times, this sound can be so loud that snorers wake up others, or even themselves, during the night. Snoring g ets worse as more and more of the air passage is blocked. Sleep Apnea If the structures completely block the throat, air can t flow to the lungs at all. This i s called apnea (meaning no breathing ). Since the lungs aren t getting fresh air, the brain tells the body to wake up just enough to tighten the muscles and unblock the air pass age. With a loud gasp, breathing begins again. This process may be repeated over and over ag ain throughout the night, making your sleep fragmented with a geopolitics teacher stage of sleep. Even t tristian you do not remember waking up many times during the night to a geopolitics teacher sleep, you feel tired the next day. The lack of sleep and fresh air can also strain your lungs, heart, and other organs, leading to problems such as high blood pressure, heart attack, or stroke. Problems in the Nose and Jaw Problems in the structure of the nose may obstruct breathing. A crooked (deviated) septum o r swollen turbinates can make snoring worse or lead to apnea. Also, a receding jaw may make the tongue sit too far back, so it s more likely to block the airway when you re asleep. [id number] [employer]. [address] [place] [address], [place] [address]. All righ ts reserved. This information is not intended as a substitute for professional medical care. Always follow your healthcare professional's instructions. Monitoring Your Sleep: Sleep Lab Testing Checking your sleep during a nighttime sleep study is often the only way to find out if you have conditions such as sleep apnea or other sleep problems. A sleep study records how your lungs, heart, brain, and other parts of your body function while you re asleep. It s pa inless, risk-free, and in most cases takes 1 full night. Testing in a Sleep Clinic If you spend the night in a sleep clinic, you will have a private bedroom. A boiler service technician rah torrez attach many sensors to your body, then go into another room. As you sleep, your heart rate , breathing, oxygen level, brain activity, and other functions will be tracked. A microphone and video camera will record your breathing sounds and body movements. The boiler service technician will keep watch nearby. If you need an air pressure device to help you breathe, one will be avail able. Tips for Testing in a Sleep Lab Before your sleep study, bathe and wash your hair. Don t use conditioners, oils, or ma keup. Stick to your normal routine. If you usually drink alcohol, exercise, or take medication before bed, ask your health care provider whether you should do so the night of your study. Most patients undergoing a sleep study should take all of their medications as they typical ly would at home. Bring your toothbrush, sleepwear, pillow, something to read, and anything else that will help you sleep well. Getting the Results The results of your sleep study need to be scored and interpreted. Once this is done, your health care provider will discuss the findings with you. The sleep study results will show w hether you have sleep apnea. It can also tell how severe the apnea is. The findings help you r health care provider know which treatment or treatments may be the right ones for you. [id number] [employer]. [address] [place] [address]. All righ ts reserved. This information is not intended as a substitute for professional medical care. Always follow your healthcare professional's instructions. Monitoring Your Sleep: Sleep Lab Testing Checking your sleep during a nighttime sleep study is often the only way to find out if you have conditions such as sleep apnea or other sleep problems. A sleep study records how your lungs, heart, brain, and other parts of your body function while you re asleep. It s pa inless, risk-free, and in most cases takes 1 full night. Testing in a Sleep Clinic If you spend the night in a sleep clinic, you will have a private bedroom. A boiler service technician rah torrez attach many sensors to your body, then go into another room. As you sleep, your heart rate , breathing, oxygen level, brain activity, and other functions will be tracked. A microphone and video camera will record your breathing sounds and body movements. The boiler service technician will keep watch nearby. If you need an air pressure device to help you breathe, one will be avail able. Tips for Testing in a Sleep Lab Before your sleep study, bathe and wash your hair. Don t use conditioners, oils, or ma keup. Stick to your normal routine. If you usually drink alcohol, exercise, or take medication before bed, ask your health care provider whether you should do so the night of your study. Most patients undergoing a sleep study should take all of their medications as they typical ly would at home. Bring your toothbrush, sleepwear, pillow, something to read, and anything else that will help you sleep well. Getting the Results The results of your sleep study need to be scored and interpreted. Once this is done, your health care provider will discuss the findings with you. The sleep study results will show w hether you have sleep apnea. It can also tell how severe the apnea is. The findings help you r health care provider know which treatment or treatments may be the right ones for you. [id number] [employer]. [address] [place] [address]. All righ ts reserved. This information is not intended as a substitute for professional medical care. Always follow your healthcare professional's instructions. SLEEP SUGGESTIONS FOR Junior Roque Jr. 1) Awaken at nearly the same time ever day at 9:30pm. Don't sleep in. 2) Obtain as much bright light as possible during your desired waking hours. 3) Minimize or preferably eliminate caffeine (coffee, tea, energy drinks, soft drinks, etc. ) and absolutely no caffeine more than 6 hours after wake time. 4) Eliminate or minimize smoking and alcohol consumption, especially near bedtime. 5) Try not to nap during the daytime; this will interfere with your night-time sleep. 6) Darken your environment an hour or two before bedtime. 7) Consider "unwinding" and "closing" your day about an hour before your anticipated bedtim e. 8) Go to bed only when you are sleepy and no earlier than 1am. 9) Use your bedroom only for sleeping. 10) Only sleep in your bedroom - do not sleep in other areas of your house. 11) Between bedtime and wake time the only things you are allowed to do is to sleep in your bedroom or to sit comfortably in another room, in the dark, doing nothing. Do not watch TV, work on the computer, send text messages, do housework, or problem solve between bedtime an d wake time. 12) If you find that you aren't asleep, get up out of bed (keep your environment dark with just low level light, so that you won't fall) and go to another room. Sit quietly in the john k until you are sleepy and then go back to bed. You may repeat this as many times as necessa ry. But you must awaken at the same time every day, regardless of how you slept that night. 13) If you continue to sleep poorly, consider going to bed a little later each night (but a waken at the same time every morning and don't nap) until you are sleeping through the major ity of the time between bed time and wake time. documented in this encounter Progress Notes Ubaldo Xie Jr., MD - 04/19/2014 2:41 PM PSTFormatting of this note might be differen t from the original. [facility] [place] [address] Ref: Russel Chiang, * CC: Chief Complaint Patient presents with Consult History of the Present Illness:This is a 53 year old male who is referred for sleep medicin e consultation by Dr. Andrez Chiang because of possible JAG. Other significant medical issues in clude HIV infection, COPD/Emphysema, HBP, neprholithiasis, anxiety/depression.. The patient' s records ([facility] EMR) are reviewed. The patient is interviewed and examined. He was referred to Dr. Chiang because of HBP. Dr. Chiang obtained a STOP-BANG sleep apnea screening score o f 4 which suggests a high likelihood of JAG and has referred the patient for sleep medicine evaluation. Bedtime is from 6-MN and rise time ranges from 8-noon. He doesn't have a regular schedule. He has nocturia three time a night. He has nights sweats frequently. He denies no cturnal heartburn. He awakens frequently with a dry mouth and nasal/sinus congestion and he awakens frequently with headaches. He dreams occasionally but he denies hypnagogic hallucinations. He denies dream enactment w hile asleep. He denies sleep paralysis. He gets tingling and pain in his legs but they don't feel like they need to move. 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 His partner has told him that his legs can kick episodically at n ight. The diagnosed with HIV at [facility] in May of 2005 - when his CD4 count was 40. He was t reated with Kaletra and Truvada at that time and he has been 100% compliant since and his Vi ral load has been undetectable and the CD4 count has risen to well above 600 since then. He isn't felt to snore "no one has ever told me that I snore." He has never awakened himsel f gasping for air or short of breath. He sleeps in all positions. Once he falls asleep he st ays asleep trough the night. He is unhappy with his sleep because he would like to have a mo re regular sleep schedule. In the daytime he feels fatigued and tired. He falls asleep multiple times during the day " I don't plan on it, it just happens." He denies cataplexy. He consumes caffeine infrequently . No one has told him that he snores. He is fatigued and tired. No one has told him that he s tops breathing. He has resistant hypertension (>2 meds for HBP). Past Medical History: has a past medical history of Osteoarthritis; COPD (chronic obstruct eamon pulmonary disease) ([facility]); Fatigue; Chronic diarrhea; HIV (human immunodeficiency virus i nfection) (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); Anxiety state, unspecified; Unspecified asthma(493.90); Other atopi c dermatitis and related conditions; Mixed hyperlipidemia; History of tobacco abuse; Obstruc tive chronic bronchitis with exacerbation ([facility]); Allergic rhinitis, cause unspecified; and P eripheral edema (02/26/2014). has past surgical history that includes Appendectomy (1999); Cholecystectomy (2010); Lung surgery (2005); and Kidney stone surgery. Allergies Allergen Reactions Amoxicillin Penicillins Current Outpatient Prescriptions Medication Sig Dispense Refill [...] once daily TRUVADA 200-300 MG per tablet Family Medical History: family history includes Arthritis in his mother; Breast cancer in h is mother; Colon cancer in his maternal grandfather; Colon polyps in his maternal grandfathe r; Depression in his mother; Heart attack in his father, maternal grandmother, and paternal grandfather; Heart disease in his father; Hypertension in his mother; Mental illness in his mother; and Stroke in his maternal grandfather, maternal grandmother, paternal grandfather, and paternal grandmother. indicated that his mother is alive. He indicated that his father is . He indicated that his brother is alive. He indicated that his maternal grandmother is . He indica neeraj that his maternal grandfather is . He indicated that his paternal grandmother is . He indicated that his paternal grandfather is . Social History: History Social History Marital Status: Single Spouse Name: N/A Number of Children: 0 Years of Education: 12+ Occupational History Disability Social History Main Topics Smoking status: Light Tobacco Smoker -- 0.3 packs/day for 38 years Types: Cigarettes Smokeless tobacco: Never Used Comment: light smoker one cigarette a week Alcohol Use: No Drug Use: No Sexually Active: Yes -- Male partner(s) Other Topics Concern None Social History Narrative Exercise: noneCaffeine: Diet Pepsi, Coke dailyLiving situation: with spouse Review of Systems: Constitutional: Denies unexplained fevers, chills. Weight loss of 40 pounds over last sev eral years. Eyes:Denies sudden loss of vision, diplopia, blurred vision. Has visual halos. ENT: Denies loss of hearing, vertigo, nasal or sinus congestion, bleeding gums or poor de ntal repair. Card:Denies exertional substernal chest heaviness, leg pain. Normal stress test recently. Resp: Mild cough but no dyspnea. GI: Nausea and chronic diarrhea : Denies dysuria, pyuria, hematuria, frequency, incontinence MS: Denies back pain, neck pain, arthralgias, arthritis, myalgias Neuro: Denies seizures, strokes, loss of consciousness, dysesthesias or paresthesias, syn cope, concussions. Psych: Denies: depression, anxiety Endocrine: Denies heat or cold intolerance Heme: Denies easy bruising or prolonged bleeding. No history of transfusions Allergic/Immunologic: Denies seasonal allergies PE: BP 140/92 | Pulse 87 | Resp 16 | Ht 1.765 m (5' 9.5") | Wt 95.936 kg (211 lb 8 oz) | BM I 30.80 kg/m2 | SpO2 98% Gen: alert and not in acute distress HEENT:Head: Normocephalic, no lesions, without obvious abnormality. Eye: Normal external eye, conjunctiva, lids cornea, CHAN. Nose: Normal external nose, mucus membranes and septum. Pharynx: Dental Hygiene adequate. Normal buccal mucosa. Mallampati 3. Neck / Thyroid: Supple, no masses, nodes, nodules or enlargement. Pulm: lungs clear to auscultation Card: regular rate and rhythm, S1, S2 normal, no murmur, click, rub or gallop GI: soft and normal bowel sounds : Not examined Rectal: Not Examined Ext: peripheral pulses normal, no pedal edema, no clubbing or cyanosis Skin:no rashes Neuro:Grossly normal Psych:age appropriate and casually dressedoriented to time, place and person, mood and aff ect are within normal limits, pt is a good historian; no memory problems were noted Heme: No cervical LN Questionnaires Review: The score of 23 on the [employer] Sleepiness scale suggests severe emeka gnized excessive daytime sleepiness. The score of 26 on the Insomnia Severity Scale suggests that the patient has severe dissatisfaction with the quality of sleep. The score of 23 on t he James Depression Inventory is consistent with moderately severe depression. The score of 2 5 on the James Anxiety Inventory suggests moderately severe recognized anxiety. The SF36v2 de monstrates that he scores 3-4 standard deviations below the mean on subscales Physical Funct ion, Role Physical, Body Pain, General Health, Vitality, Social Function, Role Emotional; an d that he scores over one standard deviation above the mean on the Mental Health subscale. H e scores 4 standard deviations below the mean on the Physical Component Scale and 1 standard deviation below the mean on the Mental Component Scale. Assessment: JAG: Of patients with resistant hypertension, studies indicate that 80-85% have JAG. I've discussed this with the patient. Between 5-10% of patients with JAG don't actuall y snore. I have discussed in detail the pathophysiology of Obstructive Sleep Apnea with the patient. I've discussed that during NREM sleep the skeletal muscles relax and in REM sleep t he skeletal muscles are paralyzed. The muscles that support the back of the throat (the tong ue in particular) also relax during NREM sleep and are paralyzed in REM sleep and when this occurs, the back of the throat collapses some. In some patients with a smaller back of the t hroat, this can result in obstruction to the flow of air. This is fundamentally what occurs in JAG. This can cause repetitive obstruction to the flow of air all night long cause a pers on with JAG to awaken repeatedly at night to "open" the back of the throat. If airflow is si gnificantly restricted, blood oxygen levels can fall. The combination of the repetitive awak enings at night and low oxygen levels lead to numerous other physiologic abnormalities which can result in nocturia, nocturnal heartburn, night sweats, morning dry mouth, morning heada cecilia, and daytime fatigue/sleepiness. Additionally, JAG can cause hypertension and it dramati smooth increases the risk of heart disease, heart attack, and stroke. It may play a causative role in obesity and AODM. Untreated JAG also dramatically increases the risk of fall asleep car accidents. Treatment can help with all of these issues. I've discussed CPAP therapy wit h him too. HBP: If he has JAG, treating it can improve significant BP control and I've reviewed this with him too. Organic Insomnia and hypersomnia: I've discussed the importance of a regular sleep/wake s chedule and I've given him some rather specific suggestions which may help. 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 HIV is well controlled. Nevertheless, insomnia as well as hypersomnia has been associated with HIV infection. COPD: THis appears to have been of moderate severity when PFT's were last done by Dr. Dane martínez in on 11/07/2009 (FVC 3.06 (59% of predicted), FEV1 1.91 (42% of predicted) with FEV1/FV C 62&. 42% improvement (800 ml) in FEV1 was noted with bronchodilator. Plan: Attended PSG is arranged with f/u thereafter. Patient Active Problem List Diagnosis PNEUMONIA EMPHYSEMA BRONCHIOLITIS, ACUTE ABNORMAL CHEST XRAY BRONCHITIS, CHRONIC, ACUTE EXACERBATION HIV (human immunodeficiency virus infection) Hypertension Peripheral edema Osteoarthritis COPD (chronic obstructive pulmonary disease) Fatigue Nephrolithiasis Peripheral neuropathy Unspecified asthma(493.90) imon, Ubaldo Hirsch Jr., MD - 04/19/2014 1:54 PM PSTFormatting of this note might be different from the origin al. 04/19/14 1300 James Depression Inventory-II Depression Score 23 - Moderate depression Insomnia Severity Index Insomnia Severity Index 26 [employer] Sleepiness Scale Sitting and reading 3 Watching TV 3 Sitting, inactive in a public place (e.g. a theatre or a meeting) 3 As a passenger in a car for an hour without a break 3 Lying down to rest in the afternoon when circumstances permit 3 Sitting and talking to someone 2 Sitting quietly after a lunch without alcohol 3 In a car, while stopped for a few minutes in traffic 3 Total score 23 SF-36v2 Score PF 17.05 RP 17.67 BP 19.86 GH 16.23 VT 23.99 SF 18.67 RE 9.23 MH 64.09 PCS 10.88 MCS 39.64 documented in t his encounter Plan of Treatment + + +--------+ + + | Name | Type | Priori | Associated Diagnoses | Order Schedule | | | | ty | | | + + +--------+ + + | Ambulatory Referral | Outpatient | Routin | JAG (obstructive | Ordered: 04/19/2014 | | to Sleep Studies | Referral | e | sleep apnea) | | | | | | Organic insomnia | | | | | | Sleepiness | | | | | | Essential | | | | | | hypertension | | + + +--------+ + + documented as of this encounter Visit Diagnoses + + | Diagnosis | + + | JAG (obstructive sleep apnea) - Primary Obstructive sleep apnea (adult) (pediatric) | + + | Organic insomnia Organic insomnia, unspecified | + + | Sleepiness Other alteration of consciousness | + + | Essential hypertension Unspecified essential hypertension | + + | COPD (chronic obstructive pulmonary disease) (HCC) Chronic airway obstruction, not | | elsewhere classified | + + | Fatigue Other malaise and fatigue | + + | HIV (human immunodeficiency virus infection) (HCC) Asymptomatic human | | immunodeficiency virus (HIV) infection status | + + documented in this encounter
--- OUTSIDE RECORDS SUMMARY | ~2019-03-29 | XMS | Encounter Summary ---
Demographics + + + | Address | [address] | | | [place] [address] | + + + | Home Phone | | + + + | Preferred Language | Unknown | + + + | Marital Status | Single | + + + | Synagogue Affiliation | 1041 | + + + | Race | Unknown | + + + | Ethnic Group | Unknown | + + + Author + + + | Author | [facility] | | | and [place] | + + + | Organization | [facility] | | | and [place] [...] Team Providers + +------+ + | Care Spinneret Person Name | Role | Phone | + +------+ + PCP | Unavailable | + +------+ + Encounter Details +--------+ + + + + | Date | Type | Department | Care Team | Description | +--------+ + + + + | 07/25/ | Hospital | [facility] | Yovani Alonso MD | | | 2009 | Encounter | MED CTR GENERIC OP | [address] [facility] | | | | | CONV DEPT [address] | [place] | | | | | [place], | [id number] | | | | | [place] [address] | | | | | | [phone] | | | +--------+ + + + [...]
--- OUTSIDE RECORDS SUMMARY | ~2019-03-29 | XMS | Encounter Summary ---
Demographics + + + | Address | [address] | | | [place] [address] | + + + | Home Phone [...] Author | [facility] | | | and [place] | + + + | Organization | [facility] | | [...] Providers + +------+ + | Care Sales Service Promoter Name | Role | Phone | + +------+ + PCP | Unavailable | + +------+ + Encounter Details +--------+ + + + + | Date | Type | Department | Care Team | Description | +--------+ + + + + | 12/12/ | Hospital | [facility] | | | | 2006 | Encounter | MED CTR EMERGENCY | | | | | | CENTER [address] | | | | | | [place] | | | | | | [address] | | | | | | [phone] | | | +--------+ + + + [...]
--- OUTSIDE RECORDS SUMMARY | ~2019-03-29 | XMS | Encounter Summary ---
Demographics + + + | Address | [address] | | | [place] [address] | + + + | Home Phone | | + + + | Preferred Language | Unknown | + + + | Marital Status | Single | + + + | Anglican Affiliation | 1041 | + + + | Race | Unknown | + + + | Ethnic Group | Unknown | + + + Author + + + | Author | [facility] | | | and [place] | + + + | Organization | [facility] | | | and [place] [...] Team Providers + +------+ + | Care Mechanical Maintenance Worker Name | Role | Phone | + +------+ + PCP | Unavailable | + +------+ + Encounter Details +--------+ + + + + | Date | Type | Department | Care Team | Description | +--------+ + + + + | 07/19/ | Hospital | [facility] | | | | 2005 - | Encounter | MED CTR GENERIC OP | | | | | | CONV DEPT [address] | | | | 07/24/ | | [place], | | | | 2005 | | [place] [address] | | | | | | [phone] | | | +--------+ + + + [...]
--- OUTSIDE RECORDS SUMMARY | ~2019-03-29 | XMS | Encounter Summary ---
Demographics + + + | Address | [address] | | | [place] [address] | + + + | Home Phone | | + + + | Preferred Language | Unknown | + + + | Marital Status | Single | + + + | Muslim Affiliation | 1041 | + + + | Race | Unknown | + + + | Ethnic Group | Unknown | + + + Author + + + | Author | [facility] | | | and [place] | + + + | Organization | [facility] | | | and [place] [...] Team Providers + +------+ + | Care Truck Bench Mechanic Name | Role | Phone | + +------+ + PCP | Unavailable | + +------+ + Encounter Details +--------+ + + + + | Date | Type | Department | Care Team | Description | +--------+ + + + + | 11/25/ | Hospital | [facility] | | | | 2006 | Encounter | MED CTR EMERGENCY | | | | | | CENTER [address] | | | | | | [place] | | | | | | [address] | | | | | | [phone] | | | +--------+ + + + [...]
--- OUTSIDE RECORDS SUMMARY | ~2019-03-29 | XMS | Encounter Summary ---
Demographics + + + | Address | [address] | | | [place] [address] | + + + | Home Phone | | + + + | Preferred Language | Unknown | + + + | Marital Status | Single | + + + | Holiness Affiliation | 1041 | + + + | Race | Unknown | + + + | Ethnic Group | Unknown | + + + Author + + + | Author | [facility] | | | and [place] | + + + | Organization | [facility] | | | and [place] [...] Team Providers + +------+ + | Care Uke Operator Name | Role | Phone | + +------+ + PCP | Unavailable | + +------+ + Encounter Details +--------+ + + + + | Date | Type | Department | Care Team | Description | +--------+ + + + + | 08/28/ | Hospital | [facility] | Rashel Mcdonald, | | | 2005 | Encounter | MED CTR XRAY [address] | [address] | | | | | [place] | [place] | | | | | [place] [address] | [address] | | | | | [phone] | | | +--------+ + + + [...]
--- OUTSIDE RECORDS SUMMARY | ~2019-03-29 | XMS | Encounter Summary ---
Demographics + + + | Address | [address] | | | [place] [address] | + + + | Home Phone | | + + + | Preferred Language | Unknown | + + + | Marital Status | Single | + + + | Scientology Affiliation | Unknown | + + + | Race | White | + + + | Ethnic Group | Not or | + + + Author + + + | Author | [facility] | + + + | Organization | [facility] | + + + | Address | Unknown | + + + | Phone | Unavailable | + + + Support + + +---------+ + | Name | Relationship | Address | Phone | + + +---------+ + | None Per Pt | ECON | Unknown | Unavailable | + + +---------+ + Care Team Providers + +------+ + | Care Structural Steel Shop Supervisor Name | Role | Phone | [...] | | | Surgery Services at | [address] [place], | | | | | [address] | [place] [address] | | | | | Ave Mailcode: | [phone] | | | | | [facility] | | | | | | and Healing, | | | | | | [address] | | | | | | [place], [place] | | | | | | [address] | | | | | | [phone] | | | +--------+ + + + [...]
--- OUTSIDE RECORDS SUMMARY | ~2019-03-29 | XMS | Encounter Summary ---
Demographics + + + | Address | [address] | | | [place] [address] | + + + | Home Phone [...] + + | Author | [facility] | | | and [place] | + + + | Organization | [facility] | | | and [place] [...] Team Providers + +------+ + | Care Security Officer Supervisor Name | Role | Phone | + +------+ + | Yovani Alonso MD | PCP | | + +------+ + Reason for Visit +---------+ + | Reason | Comments | +---------+ + | Results | | +---------+ + Encounter Details +--------+ + + + + | Date | Type | Department | Care Team | Description | +--------+ + + + + | 03/06/ | Telephone | [facility] | Elle Masters | Results | | 2016 | | CARE [address] | Jeremias Zavala MD | | | | | [place] | [address] | | | | | [address] | [facility] [place] | | | | | [phone] | [address] | | | | | | | [...]
--- OUTSIDE RECORDS SUMMARY | ~2019-03-29 | XMS | Encounter Summary ---
Demographics + + + | Address | [address] | | | [place] [address] | + + + | Home Phone | | + + + | Preferred Language | Unknown | + + + | Marital Status | Single | + + + | Worship Affiliation | 1041 | + + + | Race | Unknown | + + + | Ethnic Group | Unknown | + + + Author + + + | Author | [facility] | | | and [place] | + + + | Organization | [facility] | | | and [place] | [...] Team Providers + +------+ + | Care Biopharmaceutical Rep Name | Role | Phone | + +------+ + PCP | Unavailable | + +------+ + Encounter Details +--------+ + + + + | Date | Type | Department | Care Team | Description | +--------+ + + + + | 02/11/ | Hospital | [facility] | Jessica Dunn | | | 2005 | Encounter | MED CTR EMERGENCY | Caren Mejia MD [address] | | | | [address] | [facility] | | | | | [place] | [place] [address] | | | | | [address] | [phone] | | | | | [phone] | | | +--------+ + + + [...]
--- OUTSIDE RECORDS SUMMARY | ~2019-03-29 | XMS | Encounter Summary ---
Demographics + + + | Address | [address] | | | [place] [address] | + + + | Home Phone | | + + + | Preferred Language | Unknown | + + + | Marital Status | Single | + + + | Episcopalian Affiliation | 1041 | + + + | Race | Unknown | + + + | Ethnic Group | Unknown | + + + Author + + + | Author | [facility] | | | and [place] | + + + | Organization | [facility] | | | and [place] [...] Team Providers + +------+ + | Care Quality Assurance Qa Lab Analyst Name | Role | Phone | + +------+ + PCP | Unavailable | + +------+ + Encounter Details +--------+ + + + + | Date | Type | Department | Care Team | Description | +--------+ + + + + | 07/05/ | [facility] | [facility] | César Newell | | | 2007 | Encounter | MED CTR EMERGENCY | MD Theo [address] | | | | | CENTER [address] | [facility] | | | | | [place] [address] | [place] [address] | | | | | [address] | [phone] | | | | | [phone] | | | +--------+ + + + [...]
--- OUTSIDE RECORDS SUMMARY | ~2019-03-29 | XMS | Encounter Summary ---
Demographics + + + | Address | [address] | | | [place] [address] | + + + | Home Phone | | + + + | Preferred Language | Unknown | + + + | Marital Status | Single | + + + | Mandaen Affiliation | 1041 | + + + | Race | Unknown | + + + | Ethnic Group | Unknown | + + + Author + + + | Author | [facility] | | | and [place] | + + + | Organization | [facility] | | | and [...] Team Providers + +------+ + | Care Designer Writer Name | Role | Phone | + +------+ + PCP | Unavailable | + +------+ + Encounter Details +--------+ + + + + | Date | Type | Department | Care Team | Description | +--------+ + + + + | 08/22/ | Hospital | [facility] | Rashel Mcdonald, | | | 2005 | Encounter | MED CTR XRAY [address] | [address] | | | | | [place] | [place] | | | | | [place] [address] | [address] | | | | | [phone] | | | +--------+ + + + [...]
--- OUTSIDE RECORDS SUMMARY | ~2019-03-29 | XMS | Encounter Summary ---
Demographics + + + | Address | [address] | | | [place] [address] | + + + | Home Phone | | + + + | Preferred Language | Unknown | + + + | Marital Status | Single | + + + | Hindu Affiliation | 1041 | + + + | Race | Unknown | + + + | Ethnic Group | Unknown | + + + Author + + + | Author | [facility] | | | and [place] | + + + | Organization | [facility] | | | [...] Team Providers + +------+ + | Care Coil Winder Name | Role | Phone | + +------+ + PCP | Unavailable | + +------+ + Encounter Details +--------+ + + + + | Date | Type | Department | Care Team | Description | +--------+ + + + + | 11/14/ | Hospital | [facility] | [place], | | | 2007 | Encounter | MED CTR EMERGENCY | Noel Tolliver MD [address] | | | | | CENTER [address] | [facility] | | | | | [place] | [facility] [place] [address] | | | | | [address] | [phone] | | | | | [phone] | | | +--------+ + + + [...]
--- OUTSIDE RECORDS SUMMARY | ~2019-03-29 | XMS | Encounter Summary ---
Demographics + + + | Address | [address] | | | [place] [address] | + + + | Home Phone | | + + + | Preferred Language | Unknown | + + + | Marital Status | Single | + + + | Rastafari Affiliation | 1041 | + + + | Race | Unknown | + + + | Ethnic Group | Unknown | + + + Author + + + | Author | [facility] | | | and [place] | + + + | Organization | [facility] | | | and [place] [...] Team Providers + +------+ + | Care Plunket Nurse Name | Role | Phone | + +------+ + | Yovani Alonso MD | PCP | | + +------+ + Encounter Details +--------+---------+ + + + | Date | Type | Department | Care Team | Description | +--------+---------+ + + + | 09/07/ | Office | [facility] | Ubaldo Xie | NO SHOW (Primary Dx) | | 2015 | Visit | SLEEP DISORDER [address] | MD [address] | | | | | [address] [place] | [address] [place] | | | | | [place], [place] [address] | [place] [address] | | | | | [phone] | [phone] | | | | | | | [...] + + documented as of this encounter Progress Notes Ubaldo Xie Jr., MD - 09/07/2014 11:19 AM PDTThe patient was a NO SHOW for [facility]. This is the third consecutive No Show. He will not be rescheduled again . documented in th is encounter Plan of Treatment Not on filedocumented as of this encounter Visit Diagnoses + + | Diagnosis | + + | No Show - Primary Code used for vists where the patient is not seen | + + documented in this encounter"
--- OUTSIDE RECORDS SUMMARY | ~2019-03-29 | XMS | Encounter Summary ---
Demographics + + + | Address | [address] | | | [place] [address] | + + + | Home Phone | | + + + | Preferred Language | Unknown | + + + | Marital Status | Single | + + + | Methodist Affiliation | 1041 | + + + | Race | Unknown | + + + | Ethnic Group | Unknown | + + + Author + + + | Author | [facility] | | | and [place] | + + + | Organization | [facility] | | | and [...] Team Providers + +------+ + | Care Licensed Clinical Psychologist Name | Role | Phone | + +------+ + | Yovani Alonso MD | PCP | | + +------+ + Reason for Visit + + + | Reason | Comments | + + + | Appointment | | + + + Encounter Details +--------+ + + + + | Date | Type | Department | Care Team | Description | +--------+ + + + + | 02/17/ | Telephone | [facility] | Russel Chiang | Appointment | | 2014 | | [address] | MD Juice [address] | | | | | [place], | [address] [place] | | | | | [place] [address] | [place] [address] | | | | | [phone] | [phone] | | | | | | | [...]
--- OUTSIDE RECORDS SUMMARY | ~2019-03-29 | XMS | Encounter Summary ---
Demographics + + + | Address | [address] | | | [place] [address] | + + + | Home Phone | | + + + | Preferred Language | Unknown | + + + | Marital Status | Single | + + + | Orthodoxy Affiliation | 1041 | + + + | Race | Unknown | + + + | Ethnic Group | Unknown | + + + Author + + + | Author | [facility] | | | and [place] | + + + | Organization | [facility] | | | and [place] [...] Team Providers + +------+ + | Care Instructional Assistant Name | Role | Phone | + +------+ + PCP | Unavailable | + +------+ + Encounter Details +--------+ + + + + | Date | Type | Department | Care Team | Description | +--------+ + + + + | 02/19/ | Hospital | [facility] | | | | 2006 | Encounter | MED CTR LABORATORY | | | | | | [address] [place] | | | | | | [place] | | | | | | [address] | | | | | | [phone] | | | +--------+ + + + [...]
--- OUTSIDE RECORDS SUMMARY | ~2019-03-29 | XMS | Encounter Summary ---
Demographics + + + | Address | [address] | | | [place] [address] | + + + | Home Phone | | + + + | Preferred Language | Unknown | + + + | Marital Status | Single | + + + | Catholic Affiliation | 1041 | + + + | Race | Unknown | + + + | Ethnic Group | Unknown | + + + Author + + + | Author | [facility] | | | and [place] | + + + | Organization | [facility] | | [...] Team Providers + +------+ + | Care Reefer Engineer Name | Role | Phone | + +------+ + PCP | Unavailable | + +------+ + Encounter Details +--------+ + + + + | Date | Type | Department | Care Team | Description | +--------+ + + + + | 10/06/ | Hospital | [facility] | Rashel Mcdonald, | | | 2009 | Encounter | MED CTR GENERIC OP | MD [address] | | | | | CONV DEPT [address] | [place] | | | | | [place], | [id number] | | | | | [place] [address] | | | | | | [phone] | | | +--------+ + + + [...]
--- OUTSIDE RECORDS SUMMARY | ~2019-03-29 | XMS | Encounter Summary ---
Demographics + + + | Address | [address] | | | [place] [address] | + + + | Home Phone | | + + + | Preferred Language | Unknown | + + + | Marital Status | Single | + + + | Episcopal Affiliation | 1041 | + + + | Race | Unknown | + + + | Ethnic Group | Unknown | + + + Author + + + | Author | [facility] | | | and [place] | + + + | Organization | [facility] | | | and [...] Team Providers + +------+ + | Care Distribution Center Associate Name | Role | Phone | + +------+ + PCP | Unavailable | + +------+ + Encounter Details +--------+ + + + + | Date | Type | Department | Care Team | Description | +--------+ + + + + | 11/19/ | Hospital | [facility] | [place], | | | 2006 | Encounter | MED CTR EMERGENCY | Noel Tolliver MD [address] | | | | | CENTER [address] | [facility] | | | | | [place] | [place] [address] | | | | | [address] | [phone] | | | | | [phone] | | | +--------+ + + + [...]
--- OUTSIDE RECORDS SUMMARY | ~2019-03-29 | XMS | Encounter Summary ---
Demographics + + + | Address | [address] | | | [place] [address] | + + + | Home Phone [...] Author | [facility] | | | and [place] | + + + | Organization | [facility] | | | and [...] Team Providers + +------+ + | Care Letterpress Printing Machinist Name | Role | Phone | + +------+ + PCP | Unavailable | + +------+ + Encounter Details +--------+ + + + + | Date | Type | Department | Care Team | Description | +--------+ + + + + | 11/05/ | Hospital | [facility] | [place], | | | 2006 | Encounter | MED CTR EMERGENCY | Noel Tolliver MD [address] | | | | | CENTER [address] | [place] [facility] | | | | | [place] | [place] [address] | | | | | [address] | [phone] | | | | | [phone] | | | +--------+ + + + [...]
--- OUTSIDE RECORDS SUMMARY | ~2019-03-29 | XMS | Encounter Summary ---
Demographics + + + | Address | [address] | | | [place] [address] | + + + | Home Phone | | + + + | Preferred Language | Unknown | + + + | Marital Status | Single | + + + | Worship Affiliation | 1041 | + + + | Race | Unknown | + + + | Ethnic Group | Unknown | + + + Author + + + | Author | [facility] | | | and [place] | + + + | Organization | [facility] | | | and [...] Team Providers + +------+ + | Care Header Up Name | Role | Phone | + +------+ + | Yovani Alonso MD | PCP | | + +------+ + Reason for Visit + + + | Reason | Comments | + + + | Ankle Pain | | + + + | Ankle Injury | | + + + Encounter Details +--------+ + + + + | Date | Type | Department | Care Team | Description | +--------+ + + + + | 08/17/ | Emergency | [facility] | César Newell | Ankle sprain and | | 2013 | | [facility] | MD Theo [address] | strain, right, | | | | CENTER [address] | [address] [place] | initial encounter | | | | [place], [place] | [place] [address] | (Primary Dx) | | | | [address] | [phone] | | | | | [phone] | | | +--------+ + + + [...] + + + | Blood Pressure | 157/89 | 08/17/2013 12:54 PM | | | | | PDT | | + + + + + | Pulse | 75 | 08/17/2013 12:54 PM | | | | | PDT | | + + + + + | Temperature | 36.2 C (97.1 F) | 08/17/2013 12:54 PM | | | | | PDT | | + + + + + | Respiratory Rate | 22 | 08/17/2013 12:54 PM | | | | | PDT | | + + + + + | Oxygen Saturation | 98% | 08/17/2013 12:54 PM | | | | | PDT | | + + + + + | Inhaled Oxygen | - | - | | | Concentration | | | | + + + + + | Weight | 108 kg (238 lb) | 08/17/2013 12:54 PM | | | | | PDT | | + + + + + | Height | 182.9 cm (6') | 08/17/2013 12:54 PM | | | | | PDT | | + + + + + | Body Mass Index | 32.28 | 08/17/2013 12:54 PM | | | | | PDT | | + + + + + documented in this encounter Discharge Instructions Instructions César Newell MD - 08/17/2013Wear Sourav wrap and/or splint as needed for comfort and support. These will not help you heal faster so use whatever improves your syp mtoms Use crutches until comfortable walking. Ice, elevate and take ibuprofen or tylenol as needed for pain. Expect 4-6 weeks to heal. If no better at all in 1-2 weeks see you doctor or return here. documented in this encounter Medications at Time of [...] + +--------+ + + + | XR ANKLE RIGHT 3 + | STAT | 08/17/2013 | | Results for this | | VW | | 2:14 PM | | procedure are in the | | | | PDT | | results section. | + +--------+ + + + | ED INFORMATION | Routin | 08/17/2013 | | Results for this | | EXCHANGE | e | 12:49 PM | | procedure are in the | | | | PDT | | results section. | + +--------+ + + + documented in this encounter Results XR Ankle Right 3 + Vw (08/17/2013 2:14 PM PDT) + + | Specimen | + + | | + + + + + | Narrative | Performed At | + + + | RIGHT ANKLE: 08/17/2013 2:12 PM CLINICAL HISTORY: ANKLE PAIN | MISCELANIOUS | | ANKLE INJURY COMPARISON: 08/21/2012 FINDINGS: Stable bony | LAB | | irregularity is seen at the tip of the medial malleolus suggesting | | | old injury. No acute fracture or bony abnormality is seen. Ankle | | | joint relationships are maintained. Margins of the talus are smooth | | | and normal. No adjacent soft tissue abnormalities. IMPRESSION - | | | Old avulsion injury at the tip of the medial malleolus. No acute | | | abnormality of the ankle. Dictated and Signed by: Eladio Gill | | | Electronically signed: 08/17/2013 3:17 PM | | + + + + + | Procedure Note | + + | Rao, Rad Results In - 08/17/2013 3:21 PM PDT RIGHT ANKLE: 08/17/2013 2:12 PM | | | | CLINICAL HISTORY: ANKLE PAIN | | ANKLE INJURY | | | | COMPARISON: 08/21/2012 | | | | FINDINGS: Stable bony irregularity is seen at the tip of the medial malleolus | | suggesting old injury. No acute fracture or bony abnormality is seen. Ankle | | joint relationships are maintained. Margins of the talus are smooth and normal. | | No adjacent soft tissue abnormalities. | | | | IMPRESSION - Old avulsion injury at the tip of the medial malleolus. No acute | | abnormality of the ankle. | | | | Dictated and Signed by: Eladio Gill MD | | Electronically signed: 08/17/2013 3:17 PM | + + + +---------+ + + | Performing | Address | City/State/Zipcode | Phone Number | | Organization | | | | + +---------+ + + | MISCELLANEOUS LAB | | | [phone] | + +---------+ + + | MISCELANIOUS LAB | | | [phone] | + +---------+ + + ED INFORMATION EXCHANGE (08/17/2013 12:49 PM PDT) + + | Specimen | + + | | + + + + + | Narrative | Performed At | + + + | VISIT TRACKING (3 MO.) Visit Date Location | [facility] | | Type Diagnoses | | | -------- | | | ---- 08/17/2013 12:49 [place] | | | [facility] Right ankle pain; | | | 06/26/2013 22:44 [facility] | | | Emergency Cellulitis and abscess of leg, except foot; | | | | | | lft leg wound/bite; | | | | | | Leg Pain; VISIT COUNT (1 YR.) Visits | | | Medicaid [place] Dx Location ------ | | | --------- 7 1 [facility] | | | [facility] 7 1 Total | | | Note: Visits indicate total known visits. [place] Dx are the | | | number of primary diagnoses on the [facility]'s non-emergent dx list. | | | | [...] + | Diagnosis | + + | Ankle sprain and strain, right, initial encounter - Primary | + + documented in this encounter"
--- OUTSIDE RECORDS SUMMARY | ~2019-03-29 | XMS | Encounter Summary ---
Demographics + + + | Address | [address] | | | [place] [address] | + + + | Home Phone | | + + + | Preferred Language | Unknown | + + + | Marital Status | Single | + + + | Jewish Affiliation | 1041 | + + + | Race | Unknown | + + + | Ethnic Group | Unknown | + + + Author + + + | Author | [facility] | | | and [place] | + + + | Organization | [facility] | | | and [place] | + + + | Address | Unknown | + + + | Phone | Unavailable | + + + Support + + +---------+ + | Name | Relationship | Address | Phone | + + +---------+ + | Beth Mercado | ECON | Unknown | | + + +---------+ + Care Team Providers + +------+ + | Care Director Prison Name | Role | Phone | + +------+ + PCP | Unavailable | + +------+ + Encounter Details +--------+ + + + + | Date | Type | Department | Care Team | Description | +--------+ + + + + | 08/08/ | Hospital | [facility] | | | | 2005 | Encounter | MED CTR LABORATORY | | | | | | [address] | | | | | | [place] | | | | | | [address] | | | | | | [phone] | | | +--------+ + + + [...]
--- OUTSIDE RECORDS SUMMARY | ~2019-03-29 | XMS | Encounter Summary ---
Demographics + + + | Address | [address] | | | [place] [address] | + + + | Home Phone | | + + + | Preferred Language | Unknown | + + + | Marital Status | Single | + + + | Baptism Affiliation | 1041 | + + + | Race | Unknown | + + + | Ethnic Group | Unknown | + + + Author + + + | Author | [facility] | | | and [place] | + + + | Organization | [facility] | | | and [...] Team Providers + +------+ + | Care Screw Down Name | Role | Phone | + +------+ + PCP | Unavailable | + +------+ + Encounter Details +--------+ + + + + | Date | Type | Department | Care Team | Description | +--------+ + + + + | 02/06/ | Hospital | [facility] | [place] | | | 2006 | Encounter | MED CTR EMERGENCY | Caren Mejia MD [address] | | | | | [address] | [facility] | | | | | [place] | [place] [address] | | | | | [address] | [phone] | | | | | [phone] | | | +--------+ + + + [...]
--- OUTSIDE RECORDS SUMMARY | ~2019-03-29 | XMS | Encounter Summary ---
Demographics + + + | Address | [address] | | | [place] [address] | + + + | Home Phone [...] + | Author | [facility] | | | and [place]ayana | + + + | Organization | [facility] | [...] Team Providers + +------+ + | Care Linux Systems Engineer Name | Role | Phone | + +------+ + PCP | Unavailable | + +------+ + Encounter Details +--------+ + + + + | Date | Type | Department | Care Team | Description | +--------+ + + + + | 12/03/ | Hospital | [facility] | | | | 2006 | Encounter | MED CTR EMERGENCY | | | | | | CENTER [address] | | | | | | [place] | | | | | | [address] | | | | | | [phone] | | | +--------+ + + + [...]
--- OUTSIDE RECORDS SUMMARY | ~2019-03-29 | XMS | Encounter Summary ---
Demographics + + + | Address | [address] | | | [place] [address] | + + + | Home Phone | | + + + | Preferred Language | Unknown | + + + | Marital Status | Single | + + + | Temple Affiliation | 1041 | + + + | Race | Unknown | + + + | Ethnic Group | Unknown | + + + Author + + + | Author | [facility] | | | and [place] | + + + | Organization | [facility] | | | and [...] Providers + +------+ + | Care Retail Coverage Merchandiser Lead Name | Role | Phone | + +------+ + | Yovani Alonso MD | PCP | | + +------+ + Encounter Details +--------+ + + + + | Date | Type | Department | Care Team | Description | +--------+ + + + + | 08/21/ | Abstract | [facility] | Jw Joseph MD | | | 2012 | | GASTROENTEROLOGY | [address], [place] | | | | | [address] [place] | [address] [place] | | | | | [address] [place], [place] | [address] | | | | | [address] | | | | | | [phone] | | | +--------+ + + + [...]
--- OUTSIDE RECORDS SUMMARY | ~2019-03-29 | XMS | Encounter Summary ---
Demographics + + + | Address | [address] | | | [place] [address] | + + + | Home Phone | | + + + | Preferred Language | Unknown | + + + | Marital Status | Single | + + + | Zoroastrian Affiliation | 1041 | + + + | Race | Unknown | + + + | Ethnic Group | Unknown | + + + Author + + + | Author | [facility] | | | and [place] | + + + | Organization | [facility] | | | and [place] | + + + | Address | Unknown | + + + | Phone | Unavailable | + + + Support + + +---------+ + | Name | Relationship | Address | Phone | + + +---------+ + | Beth Meracdo | ECON | Unknown | | + + +---------+ + Care Team Providers + +------+ + | Care Inorganic Chemistry Teacher Name | Role | Phone | + +------+ + PCP | Unavailable | + +------+ + Encounter Details +--------+ + + + + | Date | Type | Department | Care Team | Description | +--------+ + + + + | 11/18/ | Hospital | [facility] | [place], | | | 2007 | Encounter | MED CTR EMERGENCY | Noel Tolliver MD [address] | | | | | CENTER [address] | [facility] | | | | | [place] | [place] [address] | | | | | [address] | [phone] | | | | | [phone] | | | +--------+ + + + [...]
--- OUTSIDE RECORDS SUMMARY | ~2019-03-29 | XMS | Encounter Summary ---
Demographics + + + | Address | [address] | | | [place] [address] | + + + | Home Phone [...] + + + | Author | [facility] | | | and [place] | + + + | Organization | [facility] | | | and [...] Providers + +------+ + | Care Quality Control Inspector Heading Name | Role | Phone | + +------+ + PCP | Unavailable | + +------+ + Encounter Details +--------+ + + + + | Date | Type | Department | Care Team | Description | +--------+ + + + + | 07/19/ | Hospital | [facility] | | | | 2005 - | Encounter | MED CTR GENERIC OP | | | | | | CONV DEPT [address] | | | | 07/24/ | | [place], | | | | 2005 | | [place] [address] | | | | | | [phone] | | | +--------+ + + + [...]
--- OUTSIDE RECORDS SUMMARY | ~2019-03-29 | XMS | Encounter Summary ---
Demographics + + + | Address | [address] | | | [place] [address] | + + + | Home Phone | | + + + | Preferred Language | Unknown | + + + | Marital Status | Single | + + + | Taoist Affiliation | 1041 | + + + | Race | Unknown | + + + | Ethnic Group | Unknown | + + + Author + + + | Author | [facility] | | | and [place] | + + + | Organization | [facility] | [...] Team Providers + +------+ + | Care Chainstitch Tunnel Elastic Operator Name | Role | Phone | + +------+ + PCP | Unavailable | + +------+ + Encounter Details +--------+ + + + + | Date | Type | Department | Care Team | Description | +--------+ + + + + | 06/26/ | Hospital | [facility] | [place], | | | 2011 | Encounter | MED CTR EMERGENCY | [address] | | | | | CENTER [address] | [facility] | | | | | [place] | [place] [address] | | | | | [address] | [phone] | | | | | [phone] | | | +--------+ + + + [...] + +--------+ + + + | URINALYSIS, REFLEX | Routin | 06/27/2011 | | Results for this | | MICROSCOPIC AND/OR | e | 2:24 PM | | procedure are in the | | CULTURE | | PDT | | results section. | + +--------+ + + + documented in this encounter Results Urinalysis, Reflex Microscopic and/or Culture (06/27/2011 2:24 PM PDT) + + + + + + | Component | Value | Ref Range | Performed | Pathologist | | | | | At | Signature | + + + + + + | COLLECTION | VOID | | [facility] | | | [facility] | | | [facility] | | [...] + + + + | Clarity | HAZY | | [facility] | | | | | | [facility] | | | | | | MEDICAL | | | | | | CENTER - | | | | | | LABORATORY | | + + + + + + | Glucose, | NEGATIVE | NEGATIVE mg/dL | [facility] | | | Urine | | | [facility] | | | | | | MEDICAL | | | | | | CENTER - | | | | | | LABORATORY | | + + + + + + | Bilirubin, | NEGATIVE | NEGATIVE | [facility] | | | Urine | | | [facility] | | | | | | MEDICAL | | | | | | CENTER - | | | | | | LABORATORY | | + + + + + + | Ketones, | NEGATIVE | NEGATIVE | [facility] | | | Urine | | | [facility] | | | | | | MEDICAL | | | | | | CENTER - | | | | | | LABORATORY | | + + + + + + | Specific | >=1.030 | 1.001 - 1.030 | [facility] | | | [place] | | | [facility] | | | | | | MEDICAL | | | | | | CENTER - | | | | | | LABORATORY | | + + + + + + | Blood, | LARGE | NEGATIVE | [facility] | | | Urine | | | [facility] | | | | | | MEDICAL | | | | | | CENTER - | | | | | | LABORATORY | | + + + + + + | pH, Urine | 5.5 | 5.0 - 8.0 | [facility] | | | | | | [facility] | | | | | | MEDICAL | | | | | | CENTER - | | | | | | LABORATORY | | + + + + + + | Protein, | NEGATIVE | NEGATIVE mg/dL | [facility] [...] + + + | WBC UA | 2-4 | 0 - 1 /hpf | [facility] | | | | | | [facility] | | | | | | MEDICAL | | | | | | CENTER - | | | | | | LABORATORY | | + + + + + + | RBC UA | 20-30 | 0 - 4 /hpf | [facility] | | | | | | [facility] | | | | | | MEDICAL | | | | | | CENTER - | | | | | | LABORATORY | | + + + + + + | SQUAMOUS | RARE | FEW /hps | [facility] | | | EPITHELIAL | | | [facility] | | | UA | | | MEDICAL | | | | | | CENTER - | | | | | | LABORATORY | | + + + + + + | BACTERIA UA | FEW | NONE /hpf | [facility] | | | | | | [facility] | | | | | | MEDICAL | | | | | | CENTER - | | | | | | LABORATORY | | + + + + + + | CRYSTAL UA | FEWComment: CALCIUM | /hpf | [facility] | | | | OXYLATE | | [facility] | | | | | | MEDICAL | | | | | | CENTER - | | | | | | LABORATORY | | + + + + + + | Culture | YESComment: REFLEXED TO | | [facility] | | | Indicated | URINE CULTURE. | | [facility] | | | [...] + | [facility] | [address] | [place] | [phone] | | [facility] | | [address] | | | - LABORATORY | | | | + + + + + | [facility] | [address] | [place] | | | [facility] | | [address] | | | - LABORATORY | | | | + + + + + documented in this encounter Visit Diagnoses Not on filedocumented in this encounter"
--- OUTSIDE RECORDS SUMMARY | ~2019-03-29 | XMS | Encounter Summary ---
Demographics + + + | Address | [address] | | | [place] [address] | + + + | Home Phone | | + + + | Preferred Language | Unknown | + + + | Marital Status | Single | + + + | Mandaeism Affiliation | 1041 | + + + | Race | Unknown | + + + | Ethnic Group | Unknown | + + + Author + + + | Author | [facility] | | | and [place] | + + + | Organization | [facility] | | | and [...] Team Providers + +------+ + | Care Labor Relations Consultant Name | Role | Phone | + +------+ + PCP | Unavailable | + +------+ + Encounter Details +--------+ + + + + | Date | Type | Department | Care Team | Description | +--------+ + + + + | 05/21/ | Hospital | [facility] | | | | 2007 - | Encounter | MED CTR EMERGENCY | | | | | | [place] [address] | | | | 05/22/ | | [place] | | | | 2007 | | [address] | | | | | | [phone] | | | +--------+ + + + [...]
--- OUTSIDE RECORDS SUMMARY | ~2019-03-29 | XMS | Encounter Summary ---
Demographics + + + | Address | [address] | | | [place] [address] | + + + | Home Phone | | + + + | Preferred Language | Unknown | + + + | Marital Status | Single | + + + | Mormon Affiliation | 1041 | + + + | Race | Unknown | + + + | Ethnic Group | Unknown | + + + Author + + + | Author | [facility] | | | and [place] | + + + | Organization | [facility] | | | and [...] Team Providers + +------+ + | Care Manager Steel Name | Role | Phone | + +------+ + PCP | Unavailable | + +------+ + Encounter Details +--------+ + + + + | Date | Type | Department | Care Team | Description | +--------+ + + + + | 08/28/ | Hospital | [facility] | [place], | | | 2006 | Encounter | MED CTR EMERGENCY | Noel Tolliver MD [address] | | | | | CENTER [address] | [facility] | | | | | [place] | [place] [address] | | | | | [address] | [phone] | | | | | [phone] | | | +--------+ + + + [...]
--- OUTSIDE RECORDS SUMMARY | ~2019-03-29 | XMS | Encounter Summary ---
Demographics + + + | Address | [address] | | | [place] [address] | + + + | Home Phone | | + + + | Preferred Language | Unknown | + + + | Marital Status | Single | + + + | Mandaeism Affiliation | 1041 | + + + | Race | Unknown | + + + | Ethnic Group | Unknown | + + + Author + + + | Author | [facility] | | | and [place] | + + + | Organization | [facility] | | | and [place] | [...] Team Providers + +------+ + | Care Clinical Auditor Name | Role | Phone | + +------+ + | Yovani Alonso MD | PCP | | + +------+ + Encounter Details +--------+ + + + + | Date | Type | Department | Care Team | Description | +--------+ + + + + | 07/25/ | Hospital | [facility] | [place], | | | 2012 - | Encounter | MED CTR EMERGENCY | [address] | | | | | CENTER [address] | [facility] | | | 07/26/ | | [place] | [place] [address] | | | 2012 | | [address] | [phone] | | | | | [phone] | | | +--------+ + + + [...] | 0 | 12/06/19 | | | (JOHNSONMAURICE BEATRIZ) | daily | | | 12 | [...] + | URINALYSIS, REFLEX | Routin | 07/26/2012 | | Results for this | | MICROSCOPIC AND/OR | e | 1:32 AM | | procedure are in the | | CULTURE | | PDT | | results section. | + +--------+ + + + documented in this encounter Results Urinalysis, Reflex Microscopic and/or Culture (07/26/2012 1:32 AM PDT) + + + + + + [...] - 1.030 | [facility] | | | [place]ift | | | [facility] | | [...] WBC UA | 0-2 | 0 - 1 /hpf | [facility] | | | | | | [facility] | | | | | | MEDICAL | | | | | | CENTER - | | | | | | LABORATORY | | + + + + + + | RBC UA | >30 | 0 - 4 /hpf | [facility] [...] + + + | BACTERIA UA | NONE | NONE /hpf | [facility] | | | | | | [facility] | | | | | | MEDICAL | | | | | | CENTER - | | | | | | LABORATORY | | + + + + + + | CRYSTAL UA | RAREComment: CALCIUM | /hpf | [facility] | | | | OXALATE | | [facility] | | | | | | MEDICAL | | | | | | CENTER - | | | | | | LABORATORY | | + + + + + + | BUDDING | RARE | /hpf | [facility] | | | YEAST UA | | | [facility] | | [...] + | [facility] | [address] | [place], [place] | [phone] | | [facility] | | [address] | | | - LABORATORY | | | | + + + + + | [facility] | [address] | [place] | | | [facility] | | [address] | | | - LABORATORY | | | | + + + + + documented in this encounter Visit Diagnoses Not on filedocumented in this encounter"
--- OUTSIDE RECORDS SUMMARY | ~2019-03-29 | XMS | Encounter Summary ---
Demographics + + + | Address | [address] | | | [place] [address] | + + + | Home Phone | | + + + | Preferred Language | Unknown | + + + | Marital Status | Single | + + + | Religion Affiliation | Unknown | + + + [...] Team Providers + +------+ + | Care Heart Coordinator Name | Role | Phone | [...]
--- OUTSIDE RECORDS SUMMARY | ~2019-03-29 | XMS | Encounter Summary ---
Demographics + + + | Address | [address] | | | [place] [address] | + + + | Home Phone | | + + + | Preferred Language | Unknown | + + + | Marital Status | Single | + + + | Pentecostalism Affiliation | 1041 | + + + | Race | Unknown | + + + | Ethnic Group | Unknown | + + + Author + + + | Author | [facility] | | | and [place] | + + + | Organization | [facility] | | | and [...] Team Providers + +------+ + | Care Acquisition Marketing Manager Name | Role | Phone | [...] + + | 02/17/ | Telephone | [facility] | Russel Chiang | Appointment | | 2014 | | [address] | MD Juice [address] | | | | | [place], | [address] [place] | | | | | [place] [address] | [place] [address] | | | | | [phone] | [phone] | | | | | | | [...]
--- OUTSIDE RECORDS SUMMARY | ~2019-03-29 | XMS | Encounter Summary ---
Demographics + + + | Address | [address] | | | [place] [address] | + + + | Home Phone | | + + + | Preferred Language | Unknown | + + + | Marital Status | Single | + + + | Jewish Affiliation | 1041 | + + + | Race | Unknown | + + + | Ethnic Group | Unknown | + + + Author + + + | Author | [facility] | | | and [place] | + + + | Organization | [facility] | | | and [place] [...] Team Providers + +------+ + | Care Crane Hoist Or Lift Operator Name | Role | Phone | + +------+ + PCP | Unavailable | + +------+ + Encounter Details +--------+ + + + + | Date | Type | Department | Care Team | Description | +--------+ + + + + | 02/12/ | Hospital | [facility] | [place] | | | 2005 | Encounter | MED CTR EMERGENCY | Caren Mejia MD [address] | | | | | [address] | [facility] | | | | | [place] | [place] [address] | | | | | [address] | [phone] | | | | | [phone] | | | +--------+ + + + [...]
--- OUTSIDE RECORDS SUMMARY | ~2019-03-29 | XMS | Encounter Summary ---
Demographics + + + | Address | [address] | | | [place] [address] | + + + | Home Phone | | + + + | Preferred Language | Unknown | + + + | Marital Status | Single | + + + | Judaism Affiliation | 1041 | + + + | Race | Unknown | + + + | Ethnic Group | Unknown | + + + Author + + + | Author | [facility] | | | and Chayana | + + + | Organization | [facility] | | | and Chayana [...] Team Providers + +------+ + | Care Estate Agent Name | Role | Phone | + +------+ + PCP | Unavailable | + +------+ + Encounter Details +--------+ + + + + | Date | Type | Department | Care Team | Description | +--------+ + + + + | 07/21/ | Hospital | [facility] | | | | 2007 | Encounter | MED CTR EMERGENCY | | | | | | CENTER [address] | | | | | | [place] | | | | | | [address] | | | | | | [phone] | | | +--------+ + + + [...]
--- OUTSIDE RECORDS SUMMARY | ~2019-03-29 | XMS | Encounter Summary ---
Demographics + + + | Address | [address] | | | [place] [address] | + + + | Home Phone [...] + + + | Author | [facility] | | | and Chayana | + + + | Organization | [facility] | | | and Chayana [...] Team Providers + +------+ + | Care Garment Liner Name | Role | Phone | + [...] | | | | CENTER [address] | [place], [place] | Ureterolithiasis | | | | [place], [place] | [address] | | | | | [address] | | | | | | [phone] | | | +--------+ + + + [...] sent through Care Everywhere.KIDNEY STONE W/ COLIC (BRITISH)documented in this encounter Medications at Time of [...] [address] | [place] | [phone] | | [facility] | | [address] | | | - LABORATORY | | [...] - 1.030 | [facility] | | | [place] | | | [facility] | | [...] + | [facility] | [address] | [place] | [phone] | | [facility] | | [address] | | | - LABORATORY | | [...] mL/min/1.73m2 | [facility] | | | [place] | RATE,ESTIMATED | | MEDICAL | | | | mL/min/1.87w2Nchl than | | CENTER - | | [...] | 8.3 | 8.3 - 10.5 | [facility] | | | | | mg/dL | [facility] | | | | | | MEDICAL | | | | | | CENTER - | | | | | | LABORATORY | | + + + + + + | Albumin | 3.4 | 3.2 - 5.0 g/dL | [facility] | | | | | | [facility] | | | | | [...] | | Phosphatase | | | [facility] | | | | | | MEDICAL [...] [address] | [place] | [phone] | | [facility] | | [address] | | | - LABORATORY | | [...] [address] | [place] | [phone] | | [facility] | | [address] | | | - LABORATORY | | [...]
--- OUTSIDE RECORDS SUMMARY | ~2019-03-29 | XMS | Encounter Summary ---
Demographics + + + | Address | [address] | | | [place] [address] | + + + | Home Phone [...] | Author | [facility] | | | and Chayana | + + + | Organization | [facility] [...] Team Providers + +------+ + | Care Cross Tie Tram Loader Name | Role | Phone | + +------+ + PCP | Unavailable | + +------+ + Encounter Details +--------+ + + + + | Date | Type | Department | Care Team | Description | +--------+ + + + + | 01/16/ | Hospital | [facility] | Jessica Dunn | | | 2008 | Encounter | MED CTR EMERGENCY | Caren Mejia MD [address] | | | | | [address] | [facility] | | | | | [place] | [place] [address] | | | | | [address] | [phone] | | | | | [phone] | | | +--------+ + + + [...]
--- OUTSIDE RECORDS SUMMARY | ~2019-03-29 | XMS | Encounter Summary ---
Demographics + + + | Address | [address] | | | [place] [address] | + + + | Home Phone [...] | Author | [facility] | | | and Chayana | + + + | Organization | [facility] | | [...] Providers + +------+ + | Care Health Care Marketing Manager Name | Role | Phone | + +------+ + PCP | Unavailable | + +------+ + Encounter Details +--------+ + + + + | Date | Type | Department | Care Team | Description | +--------+ + + + + | 04/21/ | Hospital | [facility] | | | | 2007 | Encounter | MED CTR LABORATORY | | | | | | [address] | | | | | | [place] | | | | | | [address] | | | | | | [phone] | | | +--------+ + + + [...]
--- OUTSIDE RECORDS SUMMARY | ~2019-03-29 | XMS | Encounter Summary ---
Demographics + + + | Address | [address] | | | [place] [address] | + + + | Home Phone [...] | Author | [facility] | | | and [place]ay[place] | + + + | Organization | [facility] | | | and [...] Team Providers + +------+ + | Care Tetryl Dissolver Operator Name | Role | Phone | [...] cancer | [address], | | | | | screening | [place] | [address] | | | | | Diarrhea | [address] [place] | [place], | | | | | Procedures | [place], [place] | [place] [address] | | | | | MD | [address] | Phone: | | | | | COLONOSCOPY, | Phone: | [phone] | | | | | DIAGNOSTIC | [phone] | Fax: | | | | | MD | Fax: | [phone] | | | | | COLONOSCOPY, | [phone] | | | | | | BIOPSY MD | | | | | | | [...] + + | 09/15/ | Office | [facility] | Jose Payton, | Colon cancer | | 2012 | Visit | GASTROENTEROLOGY | MD [address] | screening (Primary | | | | [address] [place] | [address] [place], | Dx); Diarrhea | | | | [address] [place], [place] | [place] [address] | | | | | [address] | [phone] | | | | | [phone] | | | +--------+---------+ + + + [...]
--- OUTSIDE RECORDS SUMMARY | ~2019-03-29 | XMS | Encounter Summary ---
Demographics + + + | Address | [address] | | | [place] [address] | + + + | Home Phone [...] | Author | [facility] | | | and [place]ay[place] | + + + | Organization | [facility] | | | and [...] Team Providers + +------+ + | Care Offender Employment Specialist Name | Role | Phone | [...] | | | | CENTER [address] | [facility] | | | 06/27/ | | [place], [place] | [place] [address] | | | 2013 | | [address] | [phone] | | | | | [phone] | | | +--------+ + + + [...] in this encounter Discharge Instructions Instructions Kingston Banda MD - 06/27/2013Elevate your left leg to heart level as much as possible Use the crutches to help you ambulate Take the medications as prescribed Recheck in 3 days Return immediately if your symptoms worsen AttachmentsThe following attachments cannot be sent through Care Everywhere.CELLULITIS (ENG [facility])documented in this encounter Medications at Time of [...] + | [facility] | [address] | [place] | [phone] | | [facility] | | [address] | | | - LABORATORY | | | | + + + + + | [facility] | [address] | [place] | | | [facility] | | [address] | | | - LABORATORY | | [...] [address] | [place] | [phone] | | [facility] | | [address] | | | - LABORATORY | | | | + + + + + | [facility] | [address] | [place] | | | [facility] | | [address] | | | - LABORATORY | | [...] mL/min/1.73m2 | [facility] | | | [facility] | RATE,ESTIMATED | | MEDICAL | | | | mL/min/1.83u6Xpfn than | | CENTER - | | [...] + | [facility] | [address] | [place], [place] | [phone] | | [facility] | | [address] | | | - LABORATORY | | | | + + + + + | [facility] | [address] | [place], [place] | | | [facility] | | [address] | | | - LABORATORY | | [...] + | [facility] | [address] | [place] | [phone] | | [facility] | | [address] | | | - LABORATORY | | | | + + + + + | [facility] | [address] | [place] | | | [facility] | | [address] | | | - LABORATORY | | | | + + + + + ED INFORMATION EXCHANGE (06/26/2013 10:30 PM PDT) + + | Specimen | + + | | + + + + + | Narrative | Performed At | + + + | VISIT TRACKING (3 MO.) Visit Date Location | [facility] | | Type Diagnoses | | | -------- | | | ---- 06/26/2013 22:29 [place] | | | [facility] Emergency lft leg wound/bite; | | | 05/18/2013 18:45 [facility] | | | Emergency [facility] OBSTRUCT [...] ------ --------- 9 | | | 1 [facility] 9 | | | 1 Total Note: Visits indicate | | | total known visits. [place] Dx are the number of primary diagnoses | | | on the [facility]'s non-emergent dx list. | | | | [...]
--- OUTSIDE RECORDS SUMMARY | ~2019-03-29 | XMS | Encounter Summary ---
Demographics + + + | Address | [address] | | | [place] [address] | + + + | Home Phone | | + + + | Preferred Language | Unknown | + + + | Marital Status | Single | + + + | Zoroastrianism Affiliation | 1041 | + + + | Race | Unknown | + + + | Ethnic Group | Unknown | + + + Author + + + | Author | [facility] | | | and [place]ay[place] | + + + | Organization | [facility] | | | and [place] [...] Team Providers + +------+ + | Care Transition Teacher Name | Role | Phone | + +------+ + PCP | Unavailable | + +------+ + Encounter Details +--------+ + + + + | Date | Type | Department | Care Team | Description | +--------+ + + + + | 02/08/ | Hospital | [facility] | Jigar Perez, | | | 2005 - | Encounter | MED CTR MED ONC | [address] | | | | | [address] | [place] | | | 02/09/ | | [place] [address] | [address] | | | 2005 | | [phone] | | | +--------+ + + + [...]
--- OUTSIDE RECORDS SUMMARY | ~2019-03-29 | XMS | Encounter Summary ---
Demographics + + + | Address | [address] | | | [place] [address] | + + + | Home Phone [...] + + + | Author | [facility] | | | and Chayana | + + + | Organization | [facility] | | | and [place] [...] Team Providers + +------+ + | Care Doubling Machine Operator Name | Role | Phone | + +------+ + PCP | Unavailable | + +------+ + Encounter Details +--------+ + + + + | Date | Type | Department | Care Team | Description | +--------+ + + + + | 11/19/ | Hospital | [facility] | [place], | | | 2006 | Encounter | MED CTR EMERGENCY | Noel Tolliver MD [address] | | | | | CENTER [address] | [facility] | | | | | [place] | [place] [address] | | | | | [address] | [phone] | | | | | [phone] | | | +--------+ + + + [...]
--- OUTSIDE RECORDS SUMMARY | ~2019-03-29 | XMS | Encounter Summary ---
Demographics + + + | Address | [address] | | | [place] [address] | + + + | Home Phone | | + + + | Preferred Language | Unknown | + + + | Marital Status | Single | + + + | Yarsani Affiliation | 1041 | + + + | Race | Unknown | + + + | Ethnic Group | Unknown | + + + Author + + + | Author | [facility] | | | and [place]ay[place] | + + + | Organization | [facility] | | | and [...] Providers + +------+ + | Care Distribution Lineman Name | Role | Phone | + +------+ + PCP | Unavailable | + +------+ + Encounter Details +--------+ + + + + | Date | Type | Department | Care Team | Description | +--------+ + + + + | 09/26/ | Hospital | [facility] | Rashel Mcdonald, | | | 2005 | Encounter | MED CTR XRAY [address] | | | | | [place] | [place] | | | | | [place] [address] | [address] | | | | | [phone] | | | +--------+ + + + [...]
--- OUTSIDE RECORDS SUMMARY | ~2019-03-29 | XMS | Encounter Summary ---
Demographics + + + | Address | [address] | | | [place] [address] | + + + | Home Phone | | + + + | Preferred Language | Unknown | + + + | Marital Status | Single | + + + | Samaritan Affiliation | 1041 | + + + | Race | Unknown | + + + | Ethnic Group | Unknown | + + + Author + + + | Author | [facility] | | | and [place]ay[place] | + + + | Organization | [facility] | | | [...] Team Providers + +------+ + | Care Cena Name | Role | Phone | + +------+ + PCP | Unavailable | + +------+ + Encounter Details +--------+ + + + + | Date | Type | Department | Care Team | Description | +--------+ + + + + | 11/14/ | Hospital | [facility] | [place], | | | 2007 | Encounter | MED CTR EMERGENCY | Noel Tolliver MD [address] | | | | | CENTER [address] | [facility] | | | | | [place] | [facility] [place] [place] [address] | | | | | [address] | [phone] | | | | | [phone] | | | +--------+ + + + [...]
--- OUTSIDE RECORDS SUMMARY | ~2019-03-29 | XMS | Encounter Summary ---
Demographics + + + | Address | [address] | | | [place] [address] | + + + | Home Phone | | + + + | Preferred Language | Unknown | + + + | Marital Status | Single | + + + | Oriental Orthodox Affiliation | Unknown | + + + | Race | White | + + + | Ethnic Group | Not or | + + + Author + + + | Author | [facility] | + + + | Organization | [facility] | + + + | Address | Unknown | + + + | Phone | Unavailable | + + + Support + + +---------+ + | Name | Relationship | Address | Phone | + + +---------+ + | None Per Pt | ECON | Unknown | Unavailable | + + +---------+ + Care Team Providers + +------+ + | Care Snow Shoveler Name | Role | Phone | + +------+ + | Yovani Alonso MD | PCP | | + +------+ + Reason for Referral Diagnostic Testing (Urgent) + +--------+ + + + + | Status | Reason | Specialty | Diagnoses / | Referred By | Referred To | | | | | Procedures | Contact | Contact | + +--------+ + + + + | Authorized | | Radiology | Diagnoses | Sunil Shaw | | | | | | Tonsil | MD eHtal 7371 | | | | | | cancer (HCC) | JACOB Roa | | | | | | Procedures | Kory Russo | | | | | | PET CT | Rd | | | | | | [address] | [place], [place] | | | | | | TO | [address] | | | | | | [place] | Phone: | | | | | | | [phone] | | | | | | | Fax: | | | | | | | [phone] | | + +--------+ + + + + Consultation (Urgent) + +--------+ + + + + | Status | Reason | Specialty | Diagnoses / | Referred By | Referred To | | | | | Procedures | Contact | Contact | + +--------+ + + + + | Authorized | | | Diagnoses | Sunil Shaw | Zoltan, | | | | | Tonsil | MD Hetal 0306 | Ty Hirsch MD | | | | | cancer (HCC) | [facility] | [place] | | | | | Procedures | [facility] | Cancer Clinic | | | | | CONSULT TO | Rd | [address] | | | | | RADIATION | [place], [place] | [address] | | | | | ONCOLOGY | [address] | [address] | | | | | | Phone: | [place] | | | | | | [phone] | [address] | | | | | | Fax: | Phone: | | | | | | [phone] | [phone] | | | | | | | Fax: | | | | | | | [phone] | + +--------+ + + + + Reason for Visit Intake Referral (Routine) +--------+--------+ + + + + | Status | Reason | Specialty | Diagnoses / | Referred By | Referred To | | | | | Procedures | Contact | Contact | +--------+--------+ + + + + | Closed | | Otolaryngolog | Diagnoses | John, | Sunil Shaw, | | | | y | Malignant | Jesus Fabian MD | [address] | | | | | neoplasm of | [address] | [address] | | | | | pharynx, | [address] | Rafaela Mcdonald | | | | | unspecified | [place] | [place], [place] | | | | | Pharyngeal | [place], [place] | [address] | | | | | tumor | [address] | Phone: | | | | | Procedures | Phone: | [phone] | | | | | [place] NEW | [phone] | Fax: | | | | | PATIENT | Fax: | [phone] | | | | | LEVEL III | [phone] | | +--------+--------+ + + + + Encounter Details +--------+---------+ + + + | Date | Type | Department | Care Team | Description | +--------+---------+ + + + | 02/17/ | Office | Otolaryngology | Sunil Shaw MD | Tonsil cancer (HCC) | | 2019 | Visit | Head and Neck | [address] | (Primary Dx) | | | | Surgery Services at | [facility], | | | | | [facility] [address] [facility] | [place] [address] | | | | | [place] Mailcode: | [phone] | | | | | [facility] | | | | | | and [address], | | | | | | [address] | | | | | | [place], [place] | | | | | | [address] | | | | | | [phone] | | | +--------+---------+ + + + [...] + + + + | Pulse | - | - | | + [...] Weight | 108.9 kg (240 lb) | 02/17/2019 9:09 AM | | | | | PST | | + + + + + | Height | - | - | | + + + + + | Body Mass Index | - | - | | + + + + + documented in this encounter Patient Instructions Patient Instructions Sunil Shaw MD - 02/17/2019 9:45 AM PSTWe will contact you for furthe r testing or treatment plans. documented in this encounter Progress Notes Rosalind Serrano MD - 02/17/2019 9:45 AM PSTFormatting of this note might be different fr om the original. 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 is a 58 y.o. male seen in consultation fr jamal Lopez regarding management of a right-sided neck mass. Report is that it was notic ed by a woman at [facility] a couple of months ago. He underwent CT of the neck after presentin g to his PCP and he was thereafter referred to Dr. Lopez. He underwent DL on 02/03/[address] Dacono, at which time a tumor was visualized on the right pharyngeal wall beginning at the tonsil and extending inferiorly down several centimeters, and was reported to be a ve ry friable. 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 He denies dysphagia, throat pain, odynophagia, otalgia, trismus, fevers, night sweats, hemo ptysis, chest pain, dyspnea. Does report lethargy and feeling cold. He reports at least 30-4 0# weight loss, but has been on a ketogenic diet. No history of head and neck surgery, besid es the aforementioned DL. He reports quicking smoking 2 years ago. Denies alcohol use. Reports he has AIDS since 2005 (defining feature was low CD4 count <50). He reports he now has near undetectable vrial levels and a high CD4 count (> 1100). He never misses his medica tion for his HIV. He denies any exposure to radiation. There is no family history of head and neck cancer. Review of Systems: Reviewed and pertinent positives/negatives reported in the HPI above. Allergies and Sensitivities: Penicillins Current Outpatient Medications Medication Sig amLODIPine 5 mg oral tablet Take 5 mg by mouth once daily. atenolol 100 mg oral tablet Take 100 mg by mouth two times daily. emtricitabine-tenofovir df (TRUVADA) 200-300 mg oral tablet fluticasone propion-salmeterol (ADVAIR DISKUS) 500-50 mcg/dose inhalation blister with device 1 puff twice daily fluticasone propionate 50 mcg/actuation nasal spray,suspension Instill 2 sprays into ea ch nostril once daily. furosemide 40 mg oral tablet Take 40 mg by mouth two times daily. gabapentin 600 mg oral tablet Take 600 mg by mouth three times daily. ibuprofen 600 mg oral tablet take 1 tablet by mouth every 6 hours if needed for MODERAT E PAIN lisinopril 40 mg oral tablet Take 40 mg by mouth once daily. pravastatin 80 mg oral tablet Take 80 mg by mouth once daily at bedtime. TRIUMEQ 600-50-300 mg oral tablet VENTOLIN HFA 90 mcg/actuation inhalation HFA aerosol inhaler Inhale 2 puffs by mouth ev tom six hours as needed. No current facility-administered medications for this visit. PMH: Past Medical History: Diagnosis Date AIDS (acquired immune deficiency syndrome) (HCC) COPD (chronic obstructive pulmonary disease) (HCC) Essential hypertension High cholesterol HIV (human immunodeficiency virus infection) (HCC) PSH: Past Surgical History Procedure Laterality Date Direct laryngoscopy Cholecystectomy Appendectomy Social History Tobacco Use Smoking status: Former Smoker Types: Cigarettes Last attempt to quit: 2015 Years since quittin.9 Smokeless tobacco: Never Used Substance Use Topics Alcohol use: Never Frequency: Never Karnofsky Performance Status: 90% Able to carry on normal activity, minor signs or symptoms of active disease Family History noncontributory Examination: Wt 108.9 kg (240 lb) General: Well nourished, well-developed patient, calm Face: no facial deformities or dysmorphic features, no facial tenderness. Symmetric at rest and with movement. Eyes: sclera anicteric, conjunctiva pink Ears: Normal external anatomy Nose: Normal external appearance, anterior rhinoscopy demonstrates healthy pink mucous with exception of crusting of the left-sided inferior turbinate, no concerning lesions Oral cavity: Normal inter-incisal distance, poor to fair dentition, normal buccal mucosa, f gilbert of mouth, oral tongue, retromolar trigone, alveolar ridges, hard palate, on inspection and palpation Oropharynx: There is a large right-sided tonsillar mass that is firm to palpation. It does not extend up the soft palate. Neck: On inspection and palpation, there is cervical lymphadenopathy identified within righ t level II, mobile, and relatively firm, nontender. No palpable thyroid lesions, and the tra ada is in the midline. Salivary gland contours normal. Respiratory and Voice: normal respiratory effort, no stridor, normal voice Cardiovascular: regular heart rate Psychiatric: Normal mood and affect, very pleasant Neurological: cranial nerves III through XII grossly intact, alert, normal speech articulat ion and fluency Skin: no obvious skin lesions of the face. Fiberoptic laryngoscopy/endoscopy: After verbal consent was obtained, we topically anesthetized the patient's nasal passages w ith phenylephrine. After inspection and palpation of the oral cavity and oropharynx, we pass ed a flexible fiberoptic laryngoscope through a nasal passage to visualize the nasopharynx ( fossae of Rosenmueller, torus tubarius, nasopharyngeal romano), oropharynx (palatine tonsils, tongue base, palatoglossal/pharyngeal folds, oropharyngeal romano), supraglottic larynx (rupert epiglottic folds, epiglottis, arytenoids, interarytenoid space, false vocal folds, ventricle ), glottic larynx, and piriform sinuses. The subglottic larynx and postcricoid area were dif ficult to visualize. Relevant findings are reported here: Large right tonsillar/pharyngeal mass that extends into the vallecula. Unable to examine th e right vallecula or pyriform given size of the mass. No obstruction of the glottis. Bilater al vocal folds with normal mobility. Ancillary Tests Reviewed: Imaging: CT neck reveals right level II lymphadenopathy (multiple pathologic appearing nodes, larges t of which 3cm) and a large right tonsillar mass (3.5cm x 2.7cm). Pathology: P16+ SCC, right palatine tonsil. 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 I do think he will respond well to treatment, and has a high probability of cure. The tumor does extend into the vallecula on the right. For this reason, I think that surgical resecti on does not provide added benefit over definitive chemoradiation from a functional perspecti ve, as tumor resection with adequate margin will result in significant dysphagia. The patient was advised that radiation and chemotherapy are generally given for a tumor of this extent, given that surgery will likely result in significant swallowing dysfunction. Plan: We will assist him with arranging chemoradiation therapy in the [facility], with Dr. Ty Charlton. We have called his office and discussed with his PA. We will also help arrange PET/CT at [facility]. We discussed urgent dental evaluation, which he will look into, for pre-radiation evaluatio n and consideration for extraction of any teeth in poor condition. I saw and evaluated the patient. I agree with the findings and the plan of care as vlad pickard in the resident/provider note. I was present for the entire procedure as described in the note for this encounter. I perfo rmed all critical portions of this procedure. Sunil Shaw MD Cruise Consultant Head and Neck Surgical Oncology Microvascular Reconstructive [facility] documented in this encount er Plan of Treatment + +---------+--------+ + + | Name | Type | Priori | Associated Diagnoses | Order Schedule | | | | ty | | | + +---------+--------+ + + | PET CT SKULL BASE TO | Imaging | Urgent | Tonsil cancer | Expected: | | [place] | | | (HCC) | 02/17/2019, Expires: | | | | | | 03/19/2020 | + +---------+--------+ + + documented as of this encounter Procedures + +--------+ + + + | Procedure Name | Priori | Date/Time | Associated Diagnosis | Comments | | | ty | | | | + +--------+ + + + | [place] | Routin | 02/22/2019 | Tonsil cancer | | | LARYNGOSCOPY,FLEXIBL | e | 8:36 PM | (HCC) | | | E, DIAGNOSTIC | | PST | | | + +--------+ + + + documented in this encounter Visit Diagnoses + + | Diagnosis | + + | Tonsil cancer (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
--- OUTSIDE RECORDS SUMMARY | ~2019-03-29 | XMS | Encounter Summary ---
Demographics + + + | Address | [address] | | | [place] [address] | + + + | Home Phone [...] + + + | Author | [facility] | | | and [place] | + + + | Organization | [facility] | | | and [place] [...] Team Providers + +------+ + | Care Operations Welder Name | Role | Phone | + +------+ + PCP | Unavailable | + +------+ + Encounter Details +--------+ + + + + | Date | Type | Department | Care Team | Description | +--------+ + + + + | 02/12/ | Hospital | [facility] | Jessica Dunn | | | 2005 | Encounter | MED CTR EMERGENCY | Caren Mejia MD [address] | | | | | [address] | [facility] | | | | | [place] | [place] [address] | | | | | [address] | [phone] | | | | | [phone] | | | +--------+ + + + [...]
--- OUTSIDE RECORDS SUMMARY | ~2019-03-29 | XMS | Encounter Summary ---
Demographics + + + | Address | [address] | | | [place] [address] | + + + | Home Phone | | + + + | Preferred Language | Unknown | + + + | Marital Status | Single | + + + | Pentecostal Affiliation | 1041 | + + + | Race | Unknown | + + + | Ethnic Group | Unknown | + + + Author + + + | Author | [facility] | | | and [place] | + + + | Organization | [facility] | | [...] Team Providers + +------+ + | Care Apartment Hotel Manager Name | Role | Phone | + +------+ + | Yovani Alonso MD | PCP | | + +------+ + Reason for Visit + + + | Reason | Comments | + + + | Medication Refill | | + + + Encounter Details +--------+--------+ + + + | Date | Type | Department | Care Team | Description | +--------+--------+ + + + | 07/20/ | Refill | [facility] [place] | Cyndi Dias | Medication Refill | | 2012 | | [facility] [address] | DO [address] | | | | | [facility] | [facility], [place] | | | | | [place] | [address] | | | | | [address] | | | | | | [phone] | | | +--------+--------+ + + + [...]
--- OUTSIDE RECORDS SUMMARY | ~2019-03-29 | XMS | Encounter Summary ---
Demographics + + + | Address | [address] | | | [place] [address] | + + + | Home Phone [...] | [facility] | | | and [place] | + + + | Organization | [facility] [...] Team Providers + +------+ + | Care Electric Motor Tester Name | Role | Phone | + +------+ + | Yovani Alonso MD | PCP | | + +------+ + Encounter Details +--------+ + + + + | Date | Type | Department | Care Team | Description | +--------+ + + + + | 01/12/ | [facility] | [facility] | Donell Coats, | Human | | 2013 | Encounter | MED CTR LABORATORY | Brent Cisneros MD | immunodeficiency | | | | [address] | [address] | virus (HIV) disease | | | | [place] | [place] [address] | (HCC) (Primary Dx) | | | | [address] | [phone] | | | | | [phone] | | | +--------+ + + + [...] 0 | 12/06/19 | | | (ROLF HENDERSON) | daily | | | 12 | [...] HIV 1, RNA, NAAT, | Routin | 01/12/2014 | Human | Results for this | | QUANT, | e | 12:11 PM | immunodeficiency | procedure are in the | | ULTRASENSITIVE | | PDT | virus (HIV) disease | results section. | | | | | (HCC) | | + +--------+ + + + documented in this encounter Results HIV 1, RNA, NAAT, Quant, Ultrasensitive (01/12/2014 12:11 PM PDT) + + + + + [...] | | | | | | Performed: [facility], [address] | | | | | | [address], [place] | | | | | | [address] | | | | + + + [...] [address] | [place] [address] | [phone] | + + + + + documented in this encounter Visit Diagnoses + + | Diagnosis | + + | Human immunodeficiency virus (HIV) disease (HCC) - Primary Human immunodeficiency | | virus [HIV] disease | + + documented in this encounter"
--- OUTSIDE RECORDS SUMMARY | ~2019-03-29 | XMS | Encounter Summary ---
Demographics + + + | Address | [address] | | | [place] [address] | + + + | Home Phone | | + + + | Preferred Language | Unknown | + + + | Marital Status | Single | + + + | Nondenominational Affiliation | Unknown | + + + | Race | White | + + + | Ethnic Group | Not or | + + + Author + + + | Author | [facility] | + + + | Organization | [facility] | + + + | Address | Unknown | + + + | Phone | Unavailable | + + + Support + + +---------+ + | Name | Relationship | Address | Phone | + + +---------+ + | None Per Pt | ECON | Unknown | Unavailable | + + +---------+ + Care Team Providers + +------+ + | Care Development Chemist Name | Role | Phone | + [...] | | | Tonsil | MD Hetal 27[address] | | | | | | cancer (HCC) | [address] | | | | | | Procedures | [address] | | | | | | PET CT | Rd | | | | | | [address] | [place], [place] | | | | | | TO | [address] | | | | | | [place] | Phone: | | | | | | | [phone] | | | | | | | Fax: | | | | | | | [phone] | | + +--------+ + + + [...] | | | Tonsil | MD [address] 26[address] | Ty Hirsch MD | | | | | cancer (HCC) | [facility] | [place] | | | | | Procedures | [facility] | Cancer Clinic | | | | | CONSULT TO | Rd | [address] | | | | | RADIATION | [place], [place] | [address] | | | | | ONCOLOGY | [address] | [address] | | | | | | Phone: | [place] | | | | | | [phone] | [address] | | | | | | Fax: | Phone: | | | | | | [phone] | [phone] | | | | | | | Fax: | | | | | | | [phone] | + +--------+ + + + + [...] | Malignant | Jesus Fabian MD | [address] | | | | | neoplasm of | [address] | [address] | | | | | pharynx, | [address] | [place] [address]cd[place] | | | | | unspecified | [place] | [place], [place] | | | | | Pharyngeal | [place], [place] | [address] | | | | | tumor | [address] | Phone: | | | | | Procedures | Phone: | [phone] | | | | | [place] NEW | [phone] | Fax: | | | | | PATIENT | Fax: | [phone] | | | | | LEVEL III | [phone] | | +--------+--------+ + + + + [...] | | | Surgery Services at | [facility], | | | | | [facility] [address] | [place] [address] | | | | | [place] Mailcode: | [phone] | | | | | [facility] | | | | | | and [address], | | | | | | [address] | | | | | | [place], [place] | | | | | | [address] | | | | | | [phone] | | | +--------+---------+ + + + [...] was notic ed by a woman at [facility] a couple of months ago. He underwent CT of the neck after presentin g to his PCP and he was thereafter referred to Dr. Lopez. He underwent DL on 02/03/[address] Duck, at which time a tumor was visualized [...] would stage this patient clinically as a [id number] p16+, Sta ge I oropharyngeal squamous cell [...] with arranging chemoradiation therapy in the [facility], with Dr. Ty Charlton. We have called his office and discussed with his PA. We will also help arrange PET/CT at [facility]. We discussed urgent dental evaluation, which he [...] portions of this procedure. Sunil Shaw MD Loss Prevention Supervisor Head and Neck Surgical Oncology Microvascular Reconstructive [...] | + +--------+ + + + | [place] | Routin | 02/22/2019 | Tonsil cancer [...]
--- OUTSIDE RECORDS SUMMARY | ~2019-03-29 | XMS | Encounter Summary ---
Demographics + + + | Address | [address] | | | [place] [address] | + + + | Home Phone | | + + + | Preferred Language | Unknown | + + + | Marital Status | Single | + + + | Christianity Affiliation | 1041 | + + + | Race | Unknown | + + + | Ethnic Group | Unknown | + + + Author + + + | Author | [facility] | | | and [place] | + + + | Organization | [facility] | | | and [...] Team Providers + +------+ + | Care Publications Inspector Name | Role | Phone | + [...] + + | 05/26/ | Office | [facility] | Elle Masters | Audie of | | 2015 | Visit | CARE [address] | Jeremias Zavala MD | finger, left | | | | [place] | [address] | (Primary Dx) | | | | [address] | [place] | | | | | [phone] | [address] | | | | | [...] [address] | [place] | [phone] | | [facility] | | [address] | | | - LABORATORY | | | | + + + + + documented in this encounter Visit Diagnoses + + | Diagnosis | + + | Paronychia of finger, left - Primary | + + documented in this encounter
--- OUTSIDE RECORDS SUMMARY | ~2019-03-29 | XMS | Encounter Summary ---
Demographics + + + | Address | [address] | | | [place] [address] | + + + | Home Phone | | + + + | Preferred Language | Unknown | + + + | Marital Status | Single | + + + | Hinduism Affiliation | 1041 | + + + | Race | Unknown | + + + | Ethnic Group | Unknown | + + + Author + + + | Author | [facility] | | | and [place] | + + + | Organization | [facility] | | [...] Team Providers + +------+ + | Care Buggy Man Name | Role | Phone | + +------+ + PCP | Unavailable | + +------+ + Encounter Details +--------+ + + + + | Date | Type | Department | Care Team | Description | +--------+ + + + + | 12/12/ | Hospital | [facility] | | | | 2006 | Encounter | MED CTR EMERGENCY | | | | | | CENTER [address] | | | | | | [place] | | | | | | [address] | | | | | | [phone] | | | +--------+ + + + [...]
--- OUTSIDE RECORDS SUMMARY | ~2019-03-29 | XMS | Encounter Summary ---
Demographics + + + | Address | [address] | | | [place] [address] | + + + | Home Phone [...] Author | [facility] | | | and [place] | + + + | Organization | [facility] | | | and [...] + +------+ + | Care Cross Tie Maker Name | Role | Phone | + +------+ + PCP | Unavailable | + +------+ + Encounter Details +--------+ + + + + | Date | Type | Department | Care Team | Description | +--------+ + + + + | 12/03/ | Hospital | [facility] | | | | 2006 | Encounter | MED CTR EMERGENCY | | | | | | CENTER [address] | | | | | | [place] | | | | | | [address] | | | | | | [phone] | | | +--------+ + + + [...]
--- OUTSIDE RECORDS SUMMARY | ~2019-03-29 | XMS | Encounter Summary ---
Demographics + + + | Address | [address] | | | [place] [address] | + + + | Home Phone [...] + + + | Author | [facility] | | | and Chayana | + + + | Organization | [facility] | | | and Chayana [...] Team Providers + +------+ + | Care Rolled Seat Trimmer Name | Role | Phone | + +------+ + | Yovani Alonso MD | PCP | | + +------+ + Encounter Details +--------+ + + + + | Date | Type | Department | Care Team | Description | +--------+ + + + + | 02/15/ | Hospital | [facility] | [place], | | | 2012 - | Encounter | [facility] | Noel Tolliver MD [address] | | | | [address] | [address] [place] | | | 02/16/ | | [place] [address] | [place] [address] | | | 2012 | | [phone] | [phone] | | | | | | | [...] + + documented as of this encounter Discharge Summaries Provider Not, In System - 02/16/2013 8:12 [place] [address] Patient Name: DWAINE VEGA Provider: Jose Luis Boss MD Unit #: [id number] Location : [facility] : 1960 ADMISSION DATE: 02/15/2013 DISCHARGE DATE: 02/16/2013 CHIEF MEDICAL CONCERNS DURING THIS ADMISSION 1. Acute bronchitis with leukocytosis. 2. Chronic renal stones. 3. Human immunodeficiency virus. 4. Hypertension. 5. Hypokalemia. 6. Neuropathy. PROCEDURES DONE DURING THIS ADMISSION: Included a chest x-ray. PHYSICAL EXAMINATION GENERAL: On discharge Mr. Vega was alert and oriented, able to ambulate comfortably on room air. LUNGS: Clear to auscultation. His cough had improved. HEART: Regular rate and rhythm. ABDOMEN: Soft, nontender, nondistended. EXTREMITIES: Warm and well perfused. HOSPITAL COURSE/PROBLEMS: 1. ACUTE BRONCHITIS: Mr. Vega came in with cough, shortness of breath and mild sputum p roduction. He had a white count of 19. However, he had no fever and a chest x-ray did not s how an acute consolidation. Given his HIV positive status and significant leukocytosis, he was admitted for monitoring and administration of IV antibiotics. He was given ceftriaxone and azithromycin initially. By the next morning, his symptoms had largely resolved. He does smoke still; he was advised to quit, although he does not want medications to help him meryl t. He was discharged on 3 more days of azithromycin. 2. CHRONIC RENAL STONES: He says he passes 2 or 3 stones month and did have calcium oxalate crystals in his urine. He has some flank pain on arrival, but this resolved by the time of discharge. He was advised to drink plenty of fluids. 3. HUMAN IMMUNODEFICIENCY VIRUS: I discussed with Dr. Alonso, and he stated that Mr. Anthony kim has been good about taking his medicines and his viral load has been undetectable; contin ued his previous medications. 4. MILD HYPERTENSION/HYPOKALEMIA. Mr. Vega does take hydrochlorothiazide, which may be partly indicated for his nephrolithiasis. On arrival, his potassium was 2.7 and his potassi um was repleted. By the time of discharge was 3.7. He was discharged with 20 mEq of potassi um daily. 5. NEUROPATHY. MEDICATIONS AT THE TIME OF DISCHARGE 1. Atenolol 25 mg p.o. daily. 2. Truvada 200-300 mg tablet 1 tab p.o. daily. 3. Fluoxetine 20 mg p.o. daily. 4. Gabapentin 300 mg p.o. t.i.d. 5. Hydrochlorothiazide 25 mg p.o. daily. 6. Ibuprofen as needed. 7. Combivent inhaler 1-2 puffs inhaled every 4 hours as needed. 8. Kaletra 2 tabs p.o. b. i.d. 9. Promethazine 25 mg p.o. q.i.d. 10. Tiotropium 1 puff inhaled daily. FOLLOWUP: He is to follow up with Dr. Alonso in the next week. DICTATED BY: Jose Luis Boss MD Hospitalist JOB #: [id number] EXT JOB #:[id number] <<Signature on File>> Caren Adamson D104/18/12 2761 < documented in this encounter Medications at Time [...] + +--------+ + + + | XR CHEST AP PORTABLE | Routin | 02/16/2013 | | Results for this | | | e | 10:13 AM | | procedure are in the | | | | PST | | results section. | + +--------+ + + + | CBC WITH | Routin | 02/16/2013 | | Results for this | | DIFFERENTIAL | e | 6:51 AM | | procedure are in the | | | | PST | | results section. | + +--------+ + + + | BASIC METABOLIC | Routin | 02/16/2013 | | Results for this | | PANEL | e | 6:51 AM | | procedure are in the | | | | PST | | results section. | + +--------+ + + + | B TYPE NATRIURETIC | Routin | 02/15/2013 | | Results for this | | PEPTIDE | e | 4:32 PM | | procedure are in the | | | | PST | | results section. | + +--------+ + + + | URINALYSIS, REFLEX | Routin | 02/15/2013 | | Results for this | | MICROSCOPIC AND/OR | e | 4:30 PM | | procedure are in the | | CULTURE | | PST | | results section. | + +--------+ + + + | TROPONIN I | Routin | 02/15/2013 | | Results for this | | | e | 3:57 PM | | procedure are in the | | | | PST | | results section. | + +--------+ + + + | CBC WITH | Routin | 02/15/2013 | | Results for this | | DIFFERENTIAL | e | 3:57 PM | | procedure are in the | | | | PST | | results section. | + +--------+ + + + | MAGNESIUM | Routin | 02/15/2013 | | Results for this | | | e | 3:57 PM | | procedure are in the | | | | PST | | results section. | + +--------+ + + + | COMPREHENSIVE | Routin | 02/15/2013 | | Results for this | | METABOLIC PANEL | e | 3:57 PM | | procedure are in the | | | | PST | | results section. | + +--------+ + + + documented in this encounter Results XR Chest AP Portable (02/16/2013 10:13 AM PST) + + | Specimen | + + | | + + + + + | Narrative | Performed At | + + + | [facility] | [place] | | Department [address] [facility] | [facility] | | [ rep [address]] [ rep [facility] | | [facility]] Signed | - IMAGING | | | | | Patient Name: DWAINE VEGA | | | Physician: EMELINA : 1960 Age: 52 Sex: M Unit | | | #: [id number] Exam Date: 02/15/13 Location: | | | [facility] 428- Report #: [id number] Page: | | | %(RAD)RES..mtdd.print.filter("pg") of %(RAD) | | | RES..mtdd.print.filter("tpg") | | | | | | Accession Number: [id number] | | | PORTABLE CHEST CLINICAL HISTORY: SHORTNESS OF BREATH. | | | COMPARISON: 05/01/2012 FINDINGS: Frontal | | | view of the chest by portable technique. A very small portion of | | | the right costophrenic angle has been clipped. The lungs are | | | symmetrically aerated. The lungs are clear. There is a | | | significant amount of processing artifact limiting detail. There is | | | no large pleural effusion or pneumothorax. The cardiac contour is | | | not enlarged. There is slight prominence of the left hilum. This | | | appears slightly different from the comparison radiograph which may | | | be in part due to rotation. IMPRESSION: 1. NO | | | ACUTE DISEASE. 2. SLIGHT PROMINENCE OF THE LEFT HILUM. | | | THIS COULD BE DUE TO ROTATION OF THE PATIENT. CANNOT EXCLUDE OTHER | | | HILAR OR PERIHILAR PROCESSES. CONSIDER FOLLOWUP. COMMENT: | | | This was identified as a finding by the ordering provider as noted in | | | the juanito section. Dictated Date/Time: 02/16/2013 10:13 | | | Transcribed Date/Time: 02/16/2013 11:12 Furnace Hand: | | | <<Signature on File>> | | | Jw | | | Luiza Youssef [id number] <Electronically signed by Jw Jarrett | | | Mikael MARIE> Jw Youssef MD 11/25/13 1013 | | | Furnace Hand: Avis [id number]/25/13 1112 | | | | | + + + + + + + + | Performing | Address | City/State/Zipcode | Phone Number | | Organization | | | | + + + + + | [facility] | [address] | [place] | [phone] | | [facility] | | [address] | | | - IMAGING | | | | + + + + + CBC with Differential (02/16/2013 6:51 AM PST) + + + + + + | Component | Value | Ref Range | Performed | Pathologist | | | | | At | Signature | + + + + + + | MANUAL | NO | | [facility] | | | [facility] | | | [facility] | | | L ? | | | MEDICAL | | | | | | CENTER - | | | | | | LABORATORY | | + + + + + + | WBC | 13.6 (H) | 4.0 - 11.0 K/uL | [facility] | | | | | | [facility] | | | | | | MEDICAL | | | | | | CENTER - | | | | | | LABORATORY | | + + + + + + | RBC | 3.70 (L) | 4.30 - 5.70 | [facility] | | | | | M/uL | [facility] | | | | | | MEDICAL | | | | | | CENTER - | | | | | | LABORATORY | | + + + + + + | Hemoglobin | 11.6 (L) | 13.5 - 18.0 | [facility] | | | | | gm/dL | [facility] | | | | | | MEDICAL | | | | | | CENTER - | | | | | | LABORATORY | | + + + + + + | Hematocrit | 34.7 (L) | 40.0 - 51.0 % | [facility] | | | | | | [facility] | | | | | | MEDICAL | | | | | | CENTER - | | | | | | LABORATORY | | + + + + + + | MCV | 93.9 | 83.0 - 101.0 fL | [facility] [...] + + + + | MCHC | 33.5 | 32.0 - 36.0 | [facility] | [...] + + + + | Platelet | 264 | 140 - 440 K/uL | [facility] | | | Count | | | [facility] | | | | | | MEDICAL | | | | | | CENTER - | | | | | | LABORATORY | | + + + + + + | % | 81.3 | 45 - 82 % | [facility] | | | Neutrophils | | | [facility] | | | | | | MEDICAL | | | | | | CENTER - | | | | | | LABORATORY | | + + + + + + | % | 12.7 (L) | 20 - 45 % | [facility] | | | Lymphocytes | | | [facility] | | | | | | MEDICAL | | | | | | CENTER - | | | | | | LABORATORY | | + + + + + + | % Monocytes | 6.0 | 4 - 12 % | [facility] | | | | | | [facility] | | | | | | MEDICAL | | | | | | CENTER - | | | | | | LABORATORY | | + + + + + + | Absolute | 11.1 (H) | 1.8 - 8.5 K/uL | [facility] | | | Neutrophils | | | [facility] | | | | | | MEDICAL | | | | | | CENTER - | | | | | | LABORATORY | | + + + + + + | Absolute | 1.7 | 0.6 - 3.2 K/uL | [facility] | | | Lymphocytes | | | [facility] | | | | | | MEDICAL | | | | | | CENTER - | | | | | | LABORATORY | | + + + + + + | Absolute | 0.8 | 0.0 - 1.0 K/uL | [facility] | | | Monocytes | | | [facility] | | [...] + | [facility] | [address] | [place] | [phone] | | [facility] | | [address] | | | - LABORATORY | | | | + + + + + | [facility] | [address] | [place] | | | [facility] | | [address] | | | - LABORATORY | | | | + + + + + Basic Metabolic Panel (02/16/2013 6:51 AM PST) + + + + + + | Component | Value | Ref Range | Performed | Pathologist | | | | | At | Signature | + + + + + + | Glucose | 117 (H) | 70 - 109 mg/dL | [facility] | | | | | | [facility] | | | | | | MEDICAL | | | | | | CENTER - | | | | | | LABORATORY | | + + + + + + | Calcium | 7.8 (L) | 8.3 - 10.5 | [facility] | | | | | mg/dL | [facility] | | | | | | MEDICAL | | | | | | CENTER - | | | | | | LABORATORY | | + + + + + + | BUN | 11 | 7 - 18 mg/dL | [facility] | | | | | | [facility] | | | | | | MEDICAL | | | | | | CENTER - | | | | | | LABORATORY | | + + + + + + | Creatinine | 0.77 | 0.60 - 1.30 | [facility] | | | | | mg/dL | [facility] | | | | | | MEDICAL | | | | | | CENTER - | | | | | | LABORATORY | | + + + + + + | Estimated | >60Comment: For | >60 mL/min/A | [facility] | | | GFR | -Americans, | | [facility] | | | | please multiply the [...] + + + + | BUN/Creatin | 14.3 | 12 - 20 | [facility] | | | ine Ratio | | | [facility] | | | | | | MEDICAL | | | | | | CENTER - | | | | | | LABORATORY | | + + + + + + | Na | 139 | 136 - 149 mEq/L | [facility] [...] + + + + | Cl | 110 (H) | 98 - 109 mEq/l | [facility] | | | | | | [facility] | | | | | | MEDICAL | | | | | | CENTER - | | | | | | LABORATORY | | + + + + + + | CO2 | 25 | 24 - 31 mEq/L | [facility] | | | | | | [facility] | | | | | | MEDICAL | | | | | | CENTER - | | | | | | LABORATORY | | + + + + + + | Anion Gap | 7.7 | 6.0 - 17.0 | [facility] | [...] + | [facility] | [address] | [place], [place] | [phone] | | [facility] | | [address] | | | - LABORATORY | | | | + + + + + | [facility] | [address] | [place], [place] | | | [facility] | | [address] | | | - LABORATORY | | | | + + + + + B Type Natriuretic Peptide (02/15/2013 4:32 PM PST) + + + + + + | Component | Value | Ref Range | Performed | Pathologist | | | | | At | Signature | + + + + + + | BNP | 68Comment: Testing | <100 pg/mL | [facility] | | | | performed on the Joann | | [facility] | | | | [employer] [facility] | | MEDICAL | | | | Analyzer. | | CENTER - | | | | | | LABORATORY | | + + + + + + + + | Specimen | + + | | + + + + + + + | Performing | Address | City/State/Zipcode | Phone Number | | Organization | | | | + + + + + | [facility] | [address] | [place] | [phone] | | [facility] | | [address] | | | - LABORATORY | | | | + + + + + | [facility] | [address] | [place] | | | [facility] | | [address] | | | - LABORATORY | | | | + + + + + Urinalysis, Reflex Microscopic and/or Culture (02/15/2013 4:30 PM PST) + + + + + + | Component | Value | Ref Range | Performed | Pathologist | | | | | At | Signature | + + + + + + | COLLECTION | VOID | | [facility] | | | [facility] | | | [facility] | | [...] - 1.030 | [facility] | | | [place] | | | [facility] | | | | | | MEDICAL | | | | | | CENTER - | | | | | | LABORATORY | | + + + + + + | Blood, | TRACE-INTACT | NEGATIVE | [facility] | | | [...] | [facility] | | | | [facility] | | [facility] | | | | | | MEDICAL | | | | | | CENTER - | | | | | | LABORATORY | | + + + + + + | Culture | NO [...] + | [facility] | [address] | [place], [place] | [phone] | | [facility] | | [address] | | | - LABORATORY | | | | + + + + + | [facility] | [address] | [place], [place] | | | [facility] | | [address] | | | - LABORATORY | | | | + + + + + CBC with Differential (02/15/2013 3:57 PM PST) + + + + + + | Component | Value | Ref Range | Performed | Pathologist | | | | | At | Signature | + + + + + + | MANUAL | NO | | [facility] | | | [facility] | | | [facility] | | | L ? | | | MEDICAL | | | | | | CENTER - | | | | | | LABORATORY | | + + + + + + | WBC | 19.0 (H) | 4.0 - 11.0 K/uL | [facility] | | | | | | [facility] | | | | | | MEDICAL | | | | | | CENTER - | | | | | | LABORATORY | | + + + + + + | RBC | 4.25 (L) | 4.30 - 5.70 | [facility] | | | | | M/uL | [facility] | | | | | | MEDICAL | | | | | | CENTER - | | | | | | LABORATORY | | + + + + + + | Hemoglobin | 13.5 | 13.5 - 18.0 | [facility] | | | | | gm/dL | [facility] | | | | | | MEDICAL | | | | | | CENTER - | | | | | | LABORATORY | | + + + + + + | Hematocrit | 39.5 (L) | 40.0 - 51.0 % | [facility] | | | | | | [facility] | | | | | | MEDICAL | | | | | | CENTER - | | | | | | LABORATORY | | + + + + + + | MCV | 93.0 | 83.0 - 101.0 fL | [facility] | | | | | | [facility] | | | | | | MEDICAL | | | | | | CENTER - | | | | | | LABORATORY | | + + + + + + | MCH | 31.7 | 28.0 - 35.0 pg | [facility] | | | | | | [facility] | | | | | | MEDICAL | | | | | | CENTER - | | | | | | LABORATORY | | + + + + + + | MCHC | 34.1 | 32.0 - 36.0 | [facility] | | | | | g/dL | [facility] | | | | | | MEDICAL | | | | | | CENTER - | | | | | | LABORATORY | | + + + + + + | RDW-CV | 13.9 | <15.0 % | [facility] | | | | | | [facility] | | | | | | MEDICAL | | | | | | CENTER - | | | | | | LABORATORY | | + + + + + + | Platelet | 307 | 140 - 440 K/uL | [facility] | | | Count | | | [facility] | | | | | | MEDICAL | | | | | | CENTER - | | | | | | LABORATORY | | + + + + + + | % | 78.3 (H) | 45 - 75 % | [facility] | | | Neutrophils | | | [facility] | | | | | | MEDICAL | | | | | | CENTER - | | | | | | LABORATORY | | + + + + + + | % | 12.1 (L) | 20 - 45 % | [facility] | | | Lymphocytes | | | [facility] | | | | | | MEDICAL | | | | | | CENTER - | | | | | | LABORATORY | | + + + + + + | % Monocytes | 8.9 | 4 - 12 % | [facility] | | | | | | [facility] | | | | | | MEDICAL | | | | | | CENTER - | | | | | | LABORATORY | | + + + + + + | % | 0.2 | 0 - 5 % | [facility] | | | Eosinophils | | | [facility] | | | | | | MEDICAL | | | | | | CENTER - | | | | | | LABORATORY | | + + + + + + | % Basophils | 0.5 | 0 - 1 % | [facility] | | | | | | [facility] | | | | | | MEDICAL | | | | | | CENTER - | | | | | | LABORATORY | | + + + + + + | Absolute | 14.9 (H) | 1.5 - 6.6 K/uL | [facility] | | | Neutrophils | | | [facility] | | | | | | MEDICAL | | | | | | CENTER - | | | | | | LABORATORY | | + + + + + + | Absolute | 2.3 | 0.6 - 3.2 K/uL | [facility] | | | Lymphocytes | | | [facility] | | | | | | MEDICAL | | | | | | CENTER - | | | | | | LABORATORY | | + + + + + + | Absolute | 1.7 (H) | 0.0 - 1.0 K/uL | [facility] | | | Monocytes | | | [facility] | | | | | | MEDICAL | | | | | | CENTER - | | | | | | LABORATORY | | + + + + + + | Absolute | 0.0 | 0.0 - 0.4 K/uL | [facility] | | | Eosinophils | | | [facility] | | | | | | MEDICAL | | | | | | CENTER - | | | | | | LABORATORY | | + + + + + + | Absolute | 0.1 | 0.0 - 0.1 K/uL | [facility] | | | Basophils | | | [facility] | | | | | | MEDICAL [...] + | [facility] | [address] | [place] | [phone] | | [facility] | | [address] | | | - LABORATORY | | | | + + + + + | [facility] | [address] | [place] | | | [facility] | | [address] | | | - LABORATORY | | | | + + + + + Comprehensive Metabolic Panel (02/15/2013 3:57 PM PST) + + + + + + | Component | Value | Ref Range | Performed | Pathologist | | | | | At | Signature | + + + + + + | Glucose | 171 (H) | 70 - 109 mg/dL | [facility] | | | | | | [facility] | | | | | | MEDICAL | | | | | | CENTER - | | | | | | LABORATORY | | + + + + + + | Calcium | 7.8 (L) | 8.3 - 10.5 | [facility] | | | | | mg/dL | [facility] | | | | | | MEDICAL | | | | | | CENTER - | | | | | | LABORATORY | | + + + + + + | Alkaline | 115 (H) | 40 - 110 IU/L | [facility] | | | Phosphatase | | | [facility] | | | | | | MEDICAL | | | | | | CENTER - | | | | | | LABORATORY | | + + + + + + | AST | 22 | 10 - 42 IU/L | [facility] | | | | | | [facility] | | | | | | MEDICAL | | | | | | CENTER - | | | | | | LABORATORY | | + + + + + + | ALT | 29 | 6 - 45 IU/L | [facility] | | | | | | [facility] | | | | | | MEDICAL | | | | | | CENTER - | | | | | | LABORATORY | | + + + + + + | Bilirubin | 0.6 | 0.2 - 1.0 mg/dL | [facility] | | | Total | | | [facility] | | | | | | MEDICAL | | | | | | CENTER - | | | | | | LABORATORY | | + + + + + + | Total | 5.1 (L) | 6.0 - 7.8 gm/dL | [facility] | | | Protein | | | [facility] | | | | | | MEDICAL | | | | | | CENTER - | | | | | | LABORATORY | | + + + + + + | Albumin | 3.2 | 3.2 - 5.0 gm/dL | [facility] | | | | | | [facility] | | | | | | MEDICAL | | | | | | CENTER - | | | | | | LABORATORY | | + + + + + + | BUN | 16 | 7 - 18 mg/dL | [facility] | | | | | | [facility] | | | | | | MEDICAL | | | | | | CENTER - | | | | | | LABORATORY | | + + + + + + | Creatinine | 0.88 | 0.60 - 1.30 | [facility] | | | | | mg/dL | [facility] | | | | | | MEDICAL | | | | | | CENTER - | | | | | | LABORATORY | | + + + + + + | Estimated | >60Comment: For | >60 mL/min/A | [facility] | | | GFR | -Americans, | | [facility] | | | | please multiply the [...] + + + + | BUN/Creatin | 18.2 | 12 - 20 | [facility] | | | ine Ratio | | | [facility] | | | | | | MEDICAL | | | | | | CENTER - | | | | | | LABORATORY | | + + + + + + | Na | 140 | 136 - 149 mEq/L | [facility] | | | | | | [facility] | | | | | | MEDICAL | | | | | | CENTER - | | | | | | LABORATORY | | + + + + + + | K | 2.7 (L)Comment: LOW | 3.5 - 5.1 mEq/l | [facility] | | | | POTASSIUM OFTEN | | [facility] | | | | ASSOCIATES WITH LOW | | MEDICAL | | | | MAGNESIUM. IF THIS MAY | | CENTER - | | | | BE RELEVANT IN THIS | | LABORATORY | | | | CASE, PLEASE ORDER | | | | | | MAGNESIUM LEVEL. | | | | + + + + + + | Cl | 110 (H) | 98 - 109 mEq/l | [facility] | | | | | | [facility] | | | | | | MEDICAL | | | | | | CENTER - | | | | | | LABORATORY | | + + + + + + | CO2 | 22 (L) | 24 - 31 mEq/L | [facility] | | | | | | [facility] | | | | | | MEDICAL | | | | | | CENTER - | | | | | | LABORATORY | | + + + + + + | Anion Gap | 10.7 | 6.0 - 17.0 | [facility] | [...] + | [facility] | [address] | [place] | [phone] | | [facility] | | [address] | | | - LABORATORY | | | | + + + + + | [facility] | [address] | [place] | | | [facility] | | [address] | | | - LABORATORY | | | | + + + + + Troponin I (02/15/2013 3:57 PM PST) + + + + + + | Component | Value | Ref Range | Performed | Pathologist | | | | | At | Signature | + + + + + + | Troponin I | 0.03Comment: Reference | <0.06 ng/mL | [facility] | | | | Ranges: | | [facility] | | | | 0.00-0.06 = NORMAL | | MEDICAL | | | | >0.06 | | CENTER - | | | | = SUSPICIOUS FOR | | LABORATORY | | | | MYOCARDIAL DAMAGE | | | | | | NOTE: Values greater | | | | | | than 0.50 ng/mL have | | | | | | been shown to be | | | | | | strongly associated with | | | | | | acute myocardial | | | | | | infarction. The | | | | | | [employer] | | | | | | Cardiology (ACC) | | | | | | recommends a decision | | | | | | limit of 0.06 ng/mL for | | | | | | this assay. Results | | | | | | greater than 0.06 can | | | | | | reflect a pre-infarct | | | | | | acute coronary | | | | | | syndrome, but can also | | | | | | reflect myocardial | | | | | | necrosis or injury | | | | | | that is not due to | | | | | | coronary artery | | | | | | disease. Some of these | | | | | | causes are sepsis, | | | | | | hypocolemia, atrial | | | | | | fibrillation, heart | | | | | | failure, pulmonary | | | | | | embolism, myocarditis, | | | | | | myocardial contusion, | | | | | | and renal failure. The | | | | | | diagnosis of myocardial | | | | | | infarction should be | | | | | | based on a combination | | | | | | of the patient's | | | | | | clinical presentation | | | | | | and the clinical | | | | | | laboratory test results | | | | | | (especially serial | | | | | | troponin levels). | | | | + + + + + + + + | Specimen | + + | | + + + + + + + | Performing | Address | City/State/Zipcode | Phone Number | | Organization | | | | + + + + + | [facility] | [address] | [place] | [phone] | | [facility] | | [address] | | | - LABORATORY | | | | + + + + + | [facility] | [address] | [place] | | | [facility] | | [address] | | | - LABORATORY | | | | + + + + + Magnesium (02/15/2013 3:57 PM PST) + +-------+ + + + | Component | Value | Ref Range | Performed | Pathologist | | | | | At | Signature | + +-------+ + + + | Magnesium | 2.0 | 1.8 - 2.5 mg/dL | [facility] | | | | [...] + | [facility] | [address] | [place] | [phone] | | [facility] | | [address] | | | - LABORATORY | | | | + + + + + | [facility] | [address] | [place] | | | [facility] | | [address] | | | - LABORATORY | | | | + + + + + documented in this encounter Visit Diagnoses Not on filedocumented in this encounter
--- OUTSIDE RECORDS SUMMARY | ~2019-03-29 | XMS | Encounter Summary ---
Demographics + + + | Address | [address] | | | [place] [address] | + + + | Home Phone | | + + + | Preferred Language | Unknown | + + + | Marital Status | Single | + + + | Restorationism Affiliation | [id number] | + + + | Race | Unknown | + + + | Ethnic Group | Unknown | + + + Author + + + | Author | [facility] | | | and [place] | + + + | Organization | [facility] | | | and [...] Team Providers + +------+ + | Care Information Management Specialist Name | Role | Phone | + +------+ + PCP | Unavailable | + +------+ + Encounter Details +--------+ + + + + | Date | Type | Department | Care Team | Description | +--------+ + + + + | 11/24/ | Hospital | [facility] | Jarod Chaves | | | 2008 | Encounter | [facility] | MD [address] | | | | | CENTER [address] | [facility] | | | | | [place], [place] | [place] [address] | | | | | [id number] | [phone] | | | | | [phone] | | | +--------+ + + + [...]
--- OUTSIDE RECORDS SUMMARY | ~2019-03-29 | XMS | Encounter Summary ---
Demographics + + + | Address | [address] | | | [place] [address] | + + + | Home Phone [...] + + + | Author | [facility] | | | and Chayana | + + + | Organization | [facility] | [...] Team Providers + +------+ + | Care Cut Out Press Operator Name | Role | Phone | + +------+ + PCP | Unavailable | + +------+ + Encounter Details +--------+ + + + + | Date | Type | Department | Care Team | Description | +--------+ + + + + | 09/12/ | Hospital | [facility] | [place], | | | 2007 | Encounter | MED CTR EMERGENCY | Noel Tolliver MD [address] | | | | | CENTER [address] | [facility] | | | | | [place] | [facility] [place] [place] [address] | | | | | [address] | [phone] | | | | | [phone] | | | +--------+ + + + [...]
--- OUTSIDE RECORDS SUMMARY | ~2019-03-29 | XMS | Encounter Summary ---
Demographics + + + | Address | [address] | | | [place] [address] | + + + | Home Phone [...] + + + | Author | [facility] | | | and Chayana | + + + | Organization | [facility] | | | and [...] Team Providers + +------+ + | Care Freight Weigher Name | Role | Phone | + +------+ + | Yovani Alonso MD | PCP | | + +------+ + Encounter Details +--------+ + + + + | Date | Type | Department | Care Team | Description | +--------+ + + + + | 05/18/ | Hospital | [facility] | [place] | | | 2013 | Encounter | MED CTR EMERGENCY | Caren Mejia MD [address] | | | | | CENTER [address] | [facility] | | | | | [place] | [place] [address] | | | | | [address] | [phone] | | | | | [phone] | Willis Villa MD | | | | | | [address] | | | | | | [place] | | | | | | [address] | | | | | | | [...] Performed At | + + + | [facility] | [place] | | Department [address] [facility] [address] [place] | [facility] | | [ rep ct [address]] [ rep ct [facility] | | st zip] Signed | - IMAGING | | | | | Patient Name: DWAINE VEGA | | | Physician: DACIA : 1960 Age: 52 Sex: M Unit | | | #: [id number] Exam Date: 05/18/13 Location: | | | ER Report #: [id number] Page: | | | %(RAD)RES..mtdd.print.filter("pg") of %(RAD) | | | RES..mtdd.print.filter("tpg") | | | | | | Accession Number: [id number] | | | UNENHANCED CT KUB: 05/18/2013 [...] Transcribed Date/Time: | | | 05/19/2013 08:12 Black Top Spreader Machine Operator: | | | <<Signature on File>> | | | Grupo Dixon | | | MD Gabe05/19/13 3502 <Electronically signed by Grupo Bernal MD> | | | Grpuo Bernal MD 05/19/13 0735 Black Top Spreader Machine Operator: | | | Mir Tesenmedx [id number] Willis Villa MD | | | Jessica Dunn MD | | + + + + + + + + | Performing | Address | City/State/Zipcode | Phone Number | | Organization | | | | + + + + + | [facility] | [address] | [place] | [phone] | | [facility] | | [address] | | | - IMAGING | | [...] [address] | [place] | [phone] | | [facility] | | [address] | | | - LABORATORY | | | | + + + + + | [facility] | [address] | [place] | | | [facility] | | [address] | | | - LABORATORY | | [...] | [address] | | | [facility] | | | | | [...] - 1.030 | [facility] | | | [place] | | | [facility] | | [...] ST. | [address] | [address] [place] | [phone] | | [facility] | | [address] | | | - LABORATORY | | | | + + + + + | [facility] | [address] | [address] [place] | | | [facility] | | [address] | | | - LABORATORY | | | | + + + + + documented in this encounter Visit Diagnoses Not on filedocumented in this encounter
--- OUTSIDE RECORDS SUMMARY | ~2019-03-29 | XMS | Encounter Summary ---
Demographics + + + | Address | [address] | | | [place] [address] | + + + | Home Phone [...] | Author | [facility] | | | and Chayana | + + + | Organization | [facility] [...] Team Providers + +------+ + | Care Gas Manager Name | Role | Phone | + +------+ + PCP | Unavailable | + +------+ + Encounter Details +--------+ + + + + | Date | Type | Department | Care Team | Description | +--------+ + + + + | 06/26/ | Hospital | [facility] | [place], | | | 2011 | Encounter | MED CTR EMERGENCY | [address] | | | | | CENTER [address] | [facility] [place] | | | | | [place] | [place] [address] | | | | | [address] | [phone] | | | | | [phone] | | | +--------+ + + + [...] - 1.030 | [facility] | | | [place] | | | [facility] | | [...] + | [facility] | [address] | [place] | [phone] | | [facility] | | [address] | | | - LABORATORY | | | | + + + + + | [facility] | [address] | [place] | | | [facility] | | [address] | | | - LABORATORY | | | | + + + + + documented in this encounter Visit Diagnoses Not on filedocumented in this encounter"
--- OUTSIDE RECORDS SUMMARY | ~2019-03-29 | XMS | Encounter Summary ---
Demographics + + + | Address | [address] | | | [place] [address] | + + + | Home Phone | | + + + | Preferred Language | Unknown | + + + | Marital Status | Single | + + + | Adventist Affiliation | 1041 | + + + | Race | Unknown | + + + | Ethnic Group | Unknown | + + + Author + + + | Author | [facility] | | | and [place]ayana | + + + | Organization | [facility] | | | and [place] [...] Team Providers + +------+ + | Care Interior Design Professor Name | Role | Phone | + +------+ + PCP | Unavailable | + +------+ + Encounter Details +--------+ + + + + | Date | Type | Department | Care Team | Description | +--------+ + + + + | 04/21/ | Hospital | [facility] | | | | 2007 | Encounter | MED CTR LABORATORY | | | | | | [address] | | | | | | [place] | | | | | | [address] | | | | | | [phone] | | | +--------+ + + + [...]
--- OUTSIDE RECORDS SUMMARY | ~2019-03-29 | XMS | Encounter Summary ---
Demographics + + + | Address | [address] | | | [place] [address] | + + + | Home Phone [...] | Author | [facility] | | | and Chayana | + + + | Organization | [facility] | | | and [...] Team Providers + +------+ + | Care Pasteurizer Helper Name | Role | Phone | + +------+ + PCP | Unavailable | + +------+ + Encounter Details +--------+ + + + + | Date | Type | Department | Care Team | Description | +--------+ + + + + | 12/06/ | Hospital | [facility] | Renetta Falk | | | 2005 | Encounter | MED CTR XRAY [address] | MD Yvonne [address] | | | | | [place] | [address] [place] | | | | | [place] [address] | [place] [address] | | | | | [phone] | [phone] | | | | | | | [...]
--- OUTSIDE RECORDS SUMMARY | ~2019-03-29 | XMS | Encounter Summary ---
Demographics + + + | Address | [address] | | | [place] [address] | + + + | Home Phone | | + + + | Preferred Language | Unknown | + + + | Marital Status | Single | + + + | Adventism Affiliation | 1041 | + + + | Race | Unknown | + + + | Ethnic Group | Unknown | + + + Author + + + | Author | [facility] | | | and Chayana | + + + | Organization | [facility] | | | and [...] Team Providers + +------+ + | Care Shackler Name | Role | Phone | + +------+ + | Yovani Alonso MD | PCP | | + +------+ + Reason for Visit Evaluate & Treat (Routine) +--------+ + + [...] Medicine | JAG | Ubaldo Hirsch | [place] [address] | | | Required | | (obstructive | MD [address] | [address] | | | | | sleep | [address] | [place], | | | | | apnea) | St [place] | [place] [address] | | | | | Organic | [place], [place] | Phone: | | | | | insomnia | [phone] | [phone] | | | | | Sleepiness | Phone: | Fax: | | | | | Essential | [phone] | [phone] | | | | | hypertension | Fax: | | | | | | Procedures | [phone] | | | | | | [place] POLYSOM | | | | | | | 6/>YRS | | | | | | | SLEEP 4/> | | | | | | | ADDL KENNEDI | | | | | | | ATTND NPSG | | | +--------+ + + + + + Encounter Details +--------+ + + + + | Date | Type | Department | Care Team | Description | +--------+ + + + + | 04/21/ | Hospital | [facility] | Ubaldo Xie | JAG (obstructive | | 2014 | Encounter | MED CTR SLEEP | MD [address] | sleep apnea) | | | | CENTER [address] | [address] [place] | (Primary Dx); | | | | [place], [place] | [place] [address] | Organic insomnia; | | | | [address] | [phone] | Sleepiness; | | | | [phone] | | Essential | | | | | | hypertension | +--------+ + + + + Social [...] + | | | | 0 | // | | | albuterol-ipratropiu | | | [...] 0 | 12/06/19 | | | (SPIRIVA PHILLIPXAVI) | daily | | | 12 | [...] | + +--------+ + + + | DIAGNOSTIC REPORT - | | 04/21/2014 | | | | EXTERNAL SCAN | | 12:00 AM | | | | | | PST | | | + [...] hypertension Unspecified essential hypertension | + + documented in this encounter"
--- OUTSIDE RECORDS SUMMARY | ~2019-03-29 | XMS | Encounter Summary ---
Demographics + + + | Address | [address] | | | [place] [address] | + + + | Home Phone | | + + + | Preferred Language | Unknown | + + + | Marital Status | Single | + + + | Congregation Affiliation | 1041 | + + + | Race | Unknown | + + + | Ethnic Group | Unknown | + + + Author + + + | Author | [facility] | | | and Chayana | + + + | Organization | [facility] | | | and [...] Providers + +------+ + | Care Director Recreation Center Name | Role | Phone | + +------+ + PCP | Unavailable | + +------+ + Encounter Details +--------+ + + + + | Date | Type | Department | Care Team | Description | +--------+ + + + + | 08/25/ | Hospital | [facility] | | | | 2008 | Encounter | MED CTR EMERGENCY | | | | | | CENTER [address] | | | | | | [place] | | | | | | [address] | | | | | | [phone] | | | +--------+ + + + [...]
--- OUTSIDE RECORDS SUMMARY | ~2019-03-29 | XMS | Encounter Summary ---
Demographics + + + | Address | [address] | | | [place] [address] | + + + | Home Phone | | + + + | Preferred Language | Unknown | + + + | Marital Status | Single | + + + | Mandaeism Affiliation | 1041 | + + + | Race | Unknown | + + + | Ethnic Group | Unknown | + + + Author + + + | Author | [facility] | | | and Chayana | + + + | Organization | [facility] | | | and [...] + +------+ + | Care Sales Agent Financial Report Service Name | Role | Phone | + +------+ + PCP | Unavailable | + +------+ + Encounter Details +--------+ + + + + | Date | Type | Department | Care Team | Description | +--------+ + + + + | 11/07/ | Hospital | [facility] | | | | 2005 | Encounter | MED CTR EMERGENCY | | | | | | CENTER [address] | | | | | | [place] | | | | | | [address] | | | | | | [phone] | | | +--------+ + + + [...]
--- OUTSIDE RECORDS SUMMARY | ~2019-03-29 | XMS | Encounter Summary ---
Demographics + + + | Address | [address] | | | [place] [address] | + + + | Home Phone [...] + + + | Author | [facility] | | | and Chayana | + + + | Organization | [facility] | [...] Team Providers + +------+ + | Care Inker And Opaquer Name | Role | Phone | + +------+ + | Yovani Alonso MD | PCP | | + +------+ + Encounter Details +--------+ + + + + | Date | Type | Department | Care Team | Description | +--------+ + + + + | 07/12/ | Hospital | [facility] | Jessica Dunn | | | 2012 | Encounter | MED CTR EMERGENCY | Caren Mejia MD [address] | | | | | [place] [address] | [facility] | | | | | [place] | [place] [address] | | | | | [address] | [phone] | | | | | [phone] | Cyndi Dias | | | | | | DO Khurram Smith | | | | | | [place], [place] | | | | | | [address] | | | | | | | [...] CT RENAL STONE WO | Routin | 07/13/2012 | | Results for this | | CONTRAST | e | 10:01 AM | | procedure are in the | | | | PDT | | results section. | + +--------+ + + + | CBC WITH | Routin | 07/12/2012 | | Results for this | | DIFFERENTIAL | e | 7:56 PM | | procedure are in the | | | | PDT | | results section. | + +--------+ + + + | BASIC METABOLIC | Routin | 07/12/2012 | | Results for this | | PANEL | e | 7:56 PM | | procedure are in the | | | | PDT | | results section. | + +--------+ + + + | URINALYSIS, REFLEX | Routin | 07/12/2012 | | Results for this | | MICROSCOPIC AND/OR | e | 7:32 PM | | procedure are in the | | CULTURE | | PDT | | results section. | + +--------+ + + + documented in this encounter Results CT Renal Stone Wo Contrast (07/13/2012 10:01 AM PDT) + + | Specimen | + + | | + + + + + | Narrative | Performed At | + + + | [facility] | [place] | | Department [address] [facility] | [place] | | [ rep ct [address]] [ rep [facility] | | st zip] Signed | - IMAGING | | | | | Patient Name: DWAINE ROQUE | | | Physician: NELLIE : 1960 Age: 52 Sex: M Unit | | | #: [id number] Exam Date: 07/12/12 Location: | | | ER Report #: [id number] Page: | | | %(RAD)RES..mtdd.print.filter("pg") of %(RAD) | | | RES..mtdd.print.filter("tpg") | | | | | | Accession Number: [id number] | | | CT ABDOMEN RENAL STONE WITHOUT CONTRAST, 07/12/2012 | | | CLINICAL HISTORY: ABDOMINAL PAIN. COMPARISON: | | | 05/26/2012. TECHNIQUE: Noncontrast imaging is | | | performed from the dome of the liver through the pubic symphysis. | | | FINDINGS: LOWER LUNGS: Lower lungs are clear | | | and unchanged. ABDOMEN/PELVIS: Interval passage of | | | the left distal ureterolith and resolution of obstructive changes in | | | the left kidney. Stable small inferior pole right nephrolith. No | | | right obstructive uropathy. The imaged liver is | | | unremarkable. The gallbladder is surgically absent. The spleen is | | | intact and unremarkable. The pancreas is intact and unremarkable. | | | There are no adrenal masses. No gastrointestinal tract | | | obstruction. Diverticulosis in the transverse, left, and sigmoid | | | portions of the colon. No evidence for active diverticulitis. | | | Patient is also status post appendectomy. No free fluid. No free | | | air. Bladder is relatively decompressed and not well evaluated. No | | | lymphadenopathy. No aneurysmal dilatation of the abdominal aorta. | | | Bilateral L5 pars defects with grade I anterolisthesis at L5 and | | | S1. Approximately 3 mm of retrolisthesis of L3 on L4 due to | | | degenerative facet changes and disc disease. No compression | | | deformities. IMPRESSION: 1. INTERVAL PASSAGE | | | OF THE DISTAL LEFT URETEROLITH AND RESOLUTION OF OBSTRUCTIVE CHANGES | | | IN THE LEFT KIDNEY. 2. RESIDUAL NONOBSTRUCTED 3 MM | | | RIGHT LOWER POLE NEPHROLITH. 3. DIVERTICULOSIS | | | WITHOUT EVIDENCE OF ACTIVE DIVERTICULITIS. NOTE: | | | PRELIMINARY REPORT WAS PUT OUT DR. ORLANDO ON 07/12/2012, AT 8:59 PM | | | PACIFIC TIME. Dictated Date/Time: 07/13/2012 10:01 | | | Transcribed Date/Time: 07/13/2012 12:59 Acid Conditioner: | | | <<Signature on File>> | | | Jw | | | Luiza Youssef MD07/13/12 1433 <Electronically signed by Jw Jarrett | | | Mikael MARIE> Jw Youssef MD 07/13/12 1001 | | | Acid Conditioner: BuddyBounce Dxocnkcbgqxwh46/21/13 1259 | | | Jessica Dunn MD | | + + + + + + + + | Performing | Address | City/State/Zipcode | Phone Number | | Organization | | | | + + + + + | [facility] | [address] | [place] | [phone] | | [facility] | | [address] | | | - IMAGING | | | | + + + + + CBC with Differential (07/12/2012 7:56 PM PDT) + + + + + + | Component | Value | Ref Range | Performed | Pathologist | | | | | At | Signature | + + + + + + | MANUAL | NO | | [facility] | | | [facility] | | | [facility] | | | L ? | | | MEDICAL | | | | | | CENTER - | | | | | | LABORATORY | | + + + + + + | WBC | 10.4 | 4.0 - 11.0 K/uL | [facility] | | | | | | [facility] | | | | | | MEDICAL | | | | | | CENTER - | | | | | | LABORATORY | | + + + + + + | RBC | 4.02 (L) | 4.30 - 5.70 | [facility] | | | | | M/uL | [facility] | | | | | | MEDICAL | | | | | | CENTER - | | | | | | LABORATORY | | + + + + + + | Hemoglobin | 13.3 (L) | 13.5 - 18.0 | [facility] | | | | | gm/dL | [facility] | | | | | | MEDICAL | | | | | | CENTER - | | | | | | LABORATORY | | + + + + + + | Hematocrit | 39.4 (L) | 40.0 - 51.0 % | [facility] | | | | | | [facility] | | | | | | MEDICAL | | | | | | CENTER - | | | | | | LABORATORY | | + + + + + + | MCV | 97.8 | 83.0 - 101.0 fL | [facility] | | | | | | [facility] | | | | | | MEDICAL | | | | | | CENTER - | | | | | | LABORATORY | | + + + + + + | MCH | 33.2 | 28.0 - 35.0 pg | [facility] | | | | | | [facility] | | | | | | MEDICAL | | | | | | CENTER - | | | | | | LABORATORY | | + + + + + + | MCHC | 33.9 | 32.0 - 36.0 | [facility] | | | | | g/dL | [facility] | | | | | | MEDICAL | | | | | | CENTER - | | | | | | LABORATORY | | + + + + + + | RDW-CV | 13.8 | <15.0 % | [facility] | | | | | | [facility] | | | | | | MEDICAL | | | | | | CENTER - | | | | | | LABORATORY | | + + + + + + | Platelet | 270 | 140 - 440 K/uL | [facility] | | | Count | | | [facility] | | | | | | MEDICAL | | | | | | CENTER - | | | | | | LABORATORY | | + + + + + + | % | 68.7 | 45 - 75 % | [facility] | | | Neutrophils | | | [facility] | | | | | | MEDICAL | | | | | | CENTER - | | | | | | LABORATORY | | + + + + + + | % | 19.9 (L) | 20 - 45 % | [facility] | | | Lymphocytes | | | [facility] | | | | | | MEDICAL | | | | | | CENTER - | | | | | | LABORATORY | | + + + + + + | % Monocytes | 9.9 | 4 - 12 % | [facility] | | | | | | [facility] | | | | | | MEDICAL | | | | | | CENTER - | | | | | | LABORATORY | | + + + + + + | % | 0.9 | 0 - 5 % | [facility] [...] + + + + | Absolute | 7.2 (H) | 1.5 - 6.6 K/uL | [facility] | | | Neutrophils | | | [facility] | | | | | | MEDICAL | | | | | | CENTER - | | | | | | LABORATORY | | + + + + + + | Absolute | 2.1 | 0.6 - 3.2 K/uL | [facility] | | | Lymphocytes | | | [facility] | | | | | | MEDICAL | | | | | | CENTER - | | | | | | LABORATORY | | + + + + + + | Absolute | 1.0 | 0.0 - 1.0 K/uL | [facility] | | | Monocytes | | | [facility] | | | | | | MEDICAL | | | | | | CENTER - | | | | | | LABORATORY | | + + + + + + | Absolute | 0.1 | 0.0 - 0.4 K/uL | [facility] [...] + | [facility] | [address] | [place] | [phone] | | [facility] | | [address] | | | - LABORATORY | | | | + + + + + | [facility] | [address] | [place] | | | [facility] | | [address] | | | - LABORATORY | | | | + + + + + Basic Metabolic Panel (07/12/2012 7:56 PM PDT) + + + + + + | Component | Value | Ref Range | Performed | Pathologist | | | | | At | Signature | + + + + + + | Glucose | 98 | 70 - 109 mg/dL | [facility] | | | | | | [facility] | | | | | | MEDICAL | | | | | | CENTER - | | | | | | LABORATORY | | + + + + + + | Calcium | 8.7 | 8.3 - 10.5 | [facility] | | | | | mg/dL | [facility] | | | | | | MEDICAL | | | | | | CENTER - | | | | | | LABORATORY | | + + + + + + | BUN | 25 (H) | 7 - 18 mg/dL | [facility] | | | | | | [facility] | | | | | | MEDICAL | | | | | | CENTER - | | | | | | LABORATORY | | + + + + + + | Creatinine | 0.78 | 0.60 - 1.30 | [facility] | | | | | mg/dL | [facility] | | | | | | MEDICAL | | | | | | CENTER - | | | | | | LABORATORY | | + + + + + + | Estimated | >60Comment: For | >60 mL/min/A | [facility] | | | GFR | -Americans, | | [facility] | | | | please multiply [...] + + + + | BUN/Creatin | 32.1 (H) | 12 - 20 | [facility] | | | ine Ratio | | | [facility] | | | | | | MEDICAL | | | | | | CENTER - | | | | | | LABORATORY | | + + + + + + | Na | 134 (L) | 136 - 149 mEq/L | [facility] | | | | | | [facility] | | | | | | MEDICAL | | | | | | CENTER - | | | | | | LABORATORY | | + + + + + + | K | 3.6 | 3.5 - 5.1 mEq/l | [facility] [...] + + + + | CO2 | 21 (L) | 24 - 31 mEq/L | [facility] | | | | | | [facility] | | | | | | MEDICAL | | | | | | CENTER - | | | | | | LABORATORY | | + + + + + + | Anion Gap | 11.6 | 6.0 - 17.0 | [facility] | [...] + | [facility] | [address] | [place] | [phone] | | [facility] | | [address] | | | - LABORATORY | | | | + + + + + | [facility] | [address] | [place] | | | [facility] | | [address] | | | - LABORATORY | | | | + + + + + Urinalysis, Reflex Microscopic and/or Culture (07/12/2012 7:32 PM PDT) + + + + + + | Component | Value | Ref Range | Performed | Pathologist | | | | | At | Signature | + + + + + + | COLLECTION | VOID | | [facility] | | | [facility] [address] | | | [facility] | | | | | | MEDICAL [...] - 1.030 | [facility] | | | [place] | | | [facility] | | | | | | MEDICAL | | | | | | CENTER - | | | | | | LABORATORY | | + + + + + + | Blood, | MODERATE | NEGATIVE | [facility] | | | Urine | | | [facility] | | | | | | MEDICAL | | | | | | CENTER - | | | | | | LABORATORY | | + + + + + + | pH, Urine | 5.0 | 5.0 - 8.0 | [facility] | [...] + + + | RBC UA | 2-4 | 0 - 4 /hpf | [facility] [...] + | [facility] | [address] | [place], [place] | [phone] | | [facility] | | [address] | | | - LABORATORY | | | | + + + + + | [facility] | [address] | [place], [place] | | | [facility] | | [address] | | | - LABORATORY | | | | + + + + + documented in this encounter Visit Diagnoses Not on filedocumented in this encounter
--- OUTSIDE RECORDS SUMMARY | ~2019-03-29 | XMS | Encounter Summary ---
Demographics + + + | Address | [address] | | | [place] [address] | + + + | Home Phone | | + + + | Preferred Language | Unknown | + + + | Marital Status | Single | + + + | Alevism Affiliation | 1041 | + + + | Race | Unknown | + + + | Ethnic Group | Unknown | + + + Author + + + | Author | [facility] | | | and [place] | + + + | Organization | [facility] | | | and [...] Team Providers + +------+ + | Care Hat Sprayer Name | Role | Phone | + +------+ + PCP | Unavailable | + +------+ + Encounter Details +--------+ + + + + | Date | Type | Department | Care Team | Description | +--------+ + + + + | 03/09/ | Hospital | [facility] | | | | 2008 | Encounter | MED CTR EMERGENCY | | | | | | CENTER [address] | | | | | | [place] | | | | | | [address] | | | | | | [phone] | | | +--------+ + + + [...]
--- OUTSIDE RECORDS SUMMARY | ~2019-03-29 | XMS | Encounter Summary ---
Demographics + + + | Address | [address] | | | [place] [address] | + + + | Home Phone | | + + + | Preferred Language | Unknown | + + + | Marital Status | Single | + + + | Faith Affiliation | 1041 | + + + | Race | Unknown | + + + | Ethnic Group | Unknown | + + + Author + + + | Author | [facility] | | | and Chayana | + + + | Organization | [facility] | | | and [...] Team Providers + +------+ + | Care Special Assets Officer Name | Role | Phone | + +------+ + | Yovani Alonso MD | PCP | | + +------+ + Encounter Details +--------+ + + + + | Date | Type | Department | Care Team | Description | +--------+ + + + + | 02/26/ | Abstract | [facility] [place] | Russel Chiang | HIV (human | | 2013 | | CARDIOLOGY [address] | MD Juice [address] | immunodeficiency | | | | [place], | [address] [place] | virus infection) | | | | [place] [address] | [place] [address] | ([facility]LY [facility]) (Primary Dx); | | | | [phone] | [phone] | Hypertension; | | | | | | Peripheral edema | +--------+ + + + + Social [...] + | Diagnosis | + + | HIV (human immunodeficiency virus infection) (HCC) - Primary Asymptomatic human | | immunodeficiency virus (HIV) infection status | + + | Hypertension Unspecified essential hypertension | + + | Peripheral edema Edema | + + documented in this encounter"
--- OUTSIDE RECORDS SUMMARY | ~2019-03-29 | XMS | Encounter Summary ---
Demographics + + + | Address | [address] | | | [place] [address] | + + + | Home Phone [...] Author | [facility] | | | and Chayana | + + + | Organization | [facility] | | | and [...] Team Providers + +------+ + | Care Consumer Safety Inspector Name | Role | Phone | + +------+ + PCP | Unavailable | + +------+ + Encounter Details +--------+ + + + + | Date | Type | Department | Care Team | Description | +--------+ + + + + | 11/08/ | Hospital | [facility] | | | | 2006 | Encounter | MED CTR EMERGENCY | | | | | | CENTER [address] | | | | | | [place] | | | | | | [address] | | | | | | [phone] | | | +--------+ + + + [...]
--- OUTSIDE RECORDS SUMMARY | ~2019-03-29 | XMS | Encounter Summary ---
Demographics + + + | Address | [address] | | | [place] [address] | + + + | Home Phone | | + + + | Preferred Language | Unknown | + + + | Marital Status | Single | + + + | Holiness Affiliation | 1041 | + + + | Race | Unknown | + + + | Ethnic Group | Unknown | + + + Author + + + | Author | [facility] | | | and Chayana | + + + | Organization | [facility] [...] Team Providers + +------+ + | Care Wet Trimmer Name | Role | Phone | + +------+ + | Yovani Alonso MD | PCP | | + +------+ + Encounter Details +--------+ + + + + | Date | Type | Department | Care Team | Description | +--------+ + + + + | 08/20/ | Hospital | [facility] | Yovani Alonso MD | | | 2012 | Encounter | MED CTR XRAY [address] | [address] [facility] | | | | | [place] | [place] | | | | | [place] [address] | [address] | | | | | [phone] | | | +--------+ + + + [...] | + +--------+ + + + | ECHO COMPLETE | Routin | 08/20/2012 | | Results for this | | | e | 4:37 PM | | procedure are in the | | | | PDT | | results section. | + +--------+ + + + documented in this encounter Results ECHO Complete (08/20/2012 4:37 PM PDT) + + | Specimen | + + | | + + + + + | Narrative | Performed At | + + + | [facility] | [place] | | Department [address] [place] [address] | [facility] | | [ rep [address]] [ rep [facility] | | [facility]] Signed | - IMAGING | | | | | Patient Name: JUNIOR VEGA | | | Physician: HELIO : 1960 Age: 52 Sex: M Unit | | | #: [id number] Exam Date: 08/20/12 Location: | | | [facility] Report #: [id number] Page: | | | %(RAD)RES..mtdd.print.filter("pg") of %(RAD) | | | RES..mtdd.print.filter("tpg") | | | | | | Accession Number: [id number] | | | E C H O C A R D I O G R A P H Y R E P O R T | | | HEIGHT: 72" WEIGHT: 254# | | | CLINICAL APPEALS AUDITOR: NIYA REFERRING DR: ENE BRODERICK DR: | | | MAXOOD DIAGNOSIS: PERIPHERAL EDEMA | | | | | | M E A S U R E M E N T S | | | Aortic Root: 33 mm LV | | | Diameter-diastole: 43 mm Aortic Cusp Sep: 17 mm | | | LV Diameter--systole: 19 mm LA: | | | 38 mm Fractional Shortenin % | | | IVS--diastole: 10 mm PFV Aortic Valve: | | | IVS--systole: 17 mm MPG Mitral | | | Valve: mmHg LVPW--diastole: 11 mm | | | PFV TR Jet: m/s LVPW--systole: | | | mm RA/RV PPG: | | | mmHg | | | | | | ECHOCARDIOGRAM, 08/20/2012 REFERRING PHYSICIAN: | | | Dr. Alonso. CLINICAL HISTORY: Peripheral edema. Assess LV | | | function. TECHNIQUE: Echocardiogram including 2D, M-mode | | | Doppler and color flow Doppler analysis. FINDINGS: | | | Echocardiogram is adequate. HEMODYNAMICS: The patient has | | | an underlying sinus rhythm throughout the procedure with the | | | ventricular in the 80's. RESULTS: CHAMBERS: The left | | | ventricle is of normal diastolic and systolic dimensions with grossly | | | normal systolic function. There is poor endocardial resolution of | | | the EF of 63%. Bilateral atria are of normal size. Right ventricle | | | is normal in size and systolic function with normal wall thickness. | | | VALVES: Aortic valves is a normal trileaflet valve without | | | any stenosis or insufficiency. There is no stenosis or insufficiency | | | noted. The mitral valve shows mild annular calcification with normal | | | leaflet excursion and trace regurgitation. Tricuspid valve is normal | | | without any insufficiency noted. The pulmonic valve is normal. | | | MISCELLANEOUS: Aortic root measures 33 mm. Pericardium is | | | normal without any pericardial effusion. IVC is normal. Left | | | ventricular diastolic parameters are consistent with grade I left | | | ventricular diastolic dysfunction. IMPRESSION: 1. | | | NORMAL LV SIZE AND SYSTOLIC FUNCTION WITH LV EF OF 63%. 2. | | | NO SIGNIFICANT VALVULAR DISEASE SEEN. 3. GRADE I LEFT | | | VENTRICULAR DIASTOLIC DYSFUNCTION. SINUS RHYTHM EXCEEDS. | | | Dictated Date/Time: 08/20/2012 16:37 Transcribed Date/Time: | | | 08/20/2012 17:17 Ophthalmic Pathologist: | | | <<Signature on File>> | | | S | | | Juice Chiang MD08/22/12 1008 <Electronically signed by S S. | | | Андрей MARIE> S Juice Chiang MD 08/20/12 0963 | | | Ophthalmic Pathologist: TweetDeckcorine Swmtxhhfepbim32/29/13 7246 | | | Yovani Alonso MD | | + + + + + + + + | Performing | Address | City/State/Zipcode | Phone Number | | Organization | | | | + + + + + | [address] | [address] | [place] | [phone] | | [facility] | | [address] | | | - IMAGING | | | | + + + + + documented in this encounter Visit Diagnoses Not on filedocumented in this encounter
--- OUTSIDE RECORDS SUMMARY | ~2019-03-29 | XMS | Encounter Summary ---
Demographics + + + | Address | [address] | | | [place] [address] | + + + | Home Phone [...] | Author | [facility] | | | and Chayana | + + + | Organization | [facility] | [...] Team Providers + +------+ + | Care Vending Supervisor Name | Role | Phone | + +------+ + | Yovani Alonso MD | PCP | | + +------+ + Encounter Details +--------+ + + + + | Date | Type | Department | Care Team | Description | +--------+ + + + + | 05/26/ | Hospital | [facility] | Cyndi Dias | | | 2012 - | Encounter | MED CTR EMERGENCY | DO Khurram Smith | | | | | CENTER [address] | [place], [place] | | | 05/27/ | | [place] | [address] | | | 2012 | | [address] | | | | | | [phone] | [place], | | | | | | [address] | | | | | | [facility] [place] | | | | | | [place] [address] | | | | | | [phone] | | | | | | | [...] 0 | 12/06/19 | | | (SPIRIVA HANDJEMALALER) | daily | | | 12 | [...] CT RENAL STONE WO | Routin | 05/27/2012 | | Results for this | | CONTRAST | e | 9:01 AM | | procedure are in the | | | | PST | | results section. | + +--------+ + + + documented in this encounter Results CT Renal Stone Wo Contrast (05/27/2012 9:01 AM PST) + + | Specimen | + + | | + + + + + | Narrative | Performed At | + + + | [facility] | [place] | | [address] | [facility] | | [ rep [address]] [ rep [facility] | | st zip] Signed | - IMAGING | | | | | Patient Name: JUNIOR VEGA | | | Physician: LEANDRO : 1960 Age: 52 Sex: M Unit | | | #: [id number] Exam Date: 05/26/12 Location: | | | ER Report #: [id number] Page: | | | %(RAD)RES..mtdd.print.filter("pg") of %(RAD) | | | RES..mtdd.print.filter("tpg") | | | | | | Accession Number: [id number] | | | CT ABDOMEN AND PELVIS, RENAL STONE STUDY WITHOUT IV CONTRAST | | | CLINICAL HISTORY: LEFT FLANK PAIN. COMPARISON: CT | | | abdomen and pelvis 06/22/2011. TECHNIQUE: Axial images | | | were obtained through the abdomen and pelvis without IV contrast. | | | Coronal and sagittal reformatted images were created. | | | FINDINGS: The lung bases are clear. The visualized portions of | | | the liver and spleen are unremarkable. Surgical clips are seen in | | | the gallbladder fossa, consistent with prior cholecystectomy. The | | | pancreas and bilateral adrenal glands are normal. There | | | is swelling of the left kidney with perinephric stranding. There is | | | hydronephrosis, with prominence of the left ureter throughout its | | | course. In the distal left ureter, there is an approximately 2-mm x | | | 5-mm obstructing calculus at the ureterovesical junction. | | | An approximately 3-mm nonobstructing calculus is seen at the inferior | | | pole collecting system of the right kidney. The right kidney is | | | otherwise unremarkable, as is the right ureter. The | | | stomach, duodenum, small bowel and ileocecal junction are normal. | | | There is diverticulosis of the sigmoid colon, without evidence of | | | wall thickening or surrounding inflammatory change to suggest | | | diverticulitis. Scattered diverticula of the descending colon are also | | | noted. Surgical clips are seen in the right lower quadrant, one | | | directly adjacent to the cecum, likely related to prior appendectomy. | | | No pathologically enlarged mesenteric or pelvic sidewall lymph | | | nodes are seen. There is no evidence of free intraperitoneal gas or | | | fluid. The bladder is mildly distended with urine and is | | | otherwise unremarkable in appearance. Calcification is seen | | | centrally within the prostate, which is otherwise unremarkable. | | | There is degenerative disc disease, with approximately 3 mm | | | retrolisthesis of L3 on L4. Facet degenerative change is seen | | | diffusely. Bilateral pars defects are seen at L5. There is | | | approximately 7- 8 mm anterolisthesis of L5 on S1. An old, healed | | | fracture is seen in the lateral left tenth rib, with suggestion of | | | old, healed fracture in the anterolateral left ninth rib. The | | | musculoskeletal structures are otherwise unremarkable. No | | | enlarged inguinal lymph nodes are evident. The body wall soft tissues | | | and muscular structures are unremarkable. IMPRESSION: | | | OBSTRUCTING CALCULUS IN THE DISTAL LEFT URETER AT THE | | | URETEROVESICAL JUNCTION CAUSING LEFT HYDRONEPHROSIS AND SWELLING | | | WITH PERINEPHRIC STRANDING OF THE LEFT KIDNEY. BILATERAL | | | PARS DEFECT AT L5, WITH 7-8 MM ANTEROLISTHESIS OF L5 ON S1. OTHER | | | SPONDYLOTIC CHANGES DESCRIBED ABOVE. Dictated | | | Date/Time: 05/27/2012 09:01 Transcribed Date/Time: 05/27/2012 | | | 09:29 Training And Development Director: <<Signature on | | | File>> | | | Man Maldonado MD05/27/12 1808 <Electronically signed by Man Maldonado MD> Man Maldonado MD 05/27/12 0901 | | | Training And Development Director: Triumfantcorine Aimpupyqabldh98/05/13 0929 | | | | | + + + + + + + + | Performing | Address | City/State/Zipcode | Phone Number | | Organization | | | | + + + + + | [facility] | [address] | [place] | [phone] | | [facility] | | [address] | | | - IMAGING | | | | + + + + + documented in this encounter Visit Diagnoses Not on filedocumented in this encounter
--- OUTSIDE RECORDS SUMMARY | ~2019-03-29 | XMS | Encounter Summary ---
Demographics + + + | Address | [address] | | | [place] [address] | + + + | Home Phone [...] Author | [facility] | | | and Chayana | + + + | Organization | [facility] | | | and [place] [...] Providers + +------+ + | Care Systems Engineer Name | Role | Phone | + +------+ + | Yovani Alonso MD | PCP | | + +------+ + Encounter Details +--------+ + + + + | Date | Type | Department | Care Team | Description | +--------+ + + + + | 09/03/ | Abstract | [facility] [place] | Jose Payton, | | | 2012 | | GASTROENTEROLOGY | [address] | | | | | [address] [place] | [address] [place], | | | | | [address] [place], [place] | [place] [address] | | | | | [address] | [phone] | | | | | [phone] | | | +--------+ + + + [...]
--- OUTSIDE RECORDS SUMMARY | ~2019-03-29 | XMS | Encounter Summary ---
Demographics + + + | Address | [address] | | | [place] [address] | + + + | Home Phone [...] + + | Author | [facility] | | | and Chayana | + + + | Organization | [facility] | | [...] Team Providers + +------+ + | Care Rechecker Name | Role | Phone | + +------+ + PCP | Unavailable | + +------+ + Encounter Details +--------+ + + + + | Date | Type | Department | Care Team | Description | +--------+ + + + + | 11/18/ | Hospital | [facility] | [place], | | | 2007 | Encounter | MED CTR EMERGENCY | Noel [place] MD [address] | | | | | CENTER [address] | [facility] [facility] | | | | | [place] | [place] [address] | | | | | [address] | [phone] | | | | | [phone] | | | +--------+ + + + [...]
--- OUTSIDE RECORDS SUMMARY | ~2019-03-29 | XMS | Encounter Summary ---
Demographics + + + | Address | [address] | | | [place] [address] | + + + | Home Phone | | + + + | Preferred Language | Unknown | + + + | Marital Status | Single | + + + | Presybeterian Affiliation | 1041 | + + + | Race | Unknown | + + + | Ethnic Group | Unknown | + + + Author + + + | Author | [facility] | | | and [place]ayana | + + + | Organization | [facility] | | | and [place] [...] Team Providers + +------+ + | Care Air Plant Engineer Name | Role | Phone | + +------+ + PCP | Unavailable | + +------+ + Encounter Details +--------+ + + + + | Date | Type | Department | Care Team | Description | +--------+ + + + + | 11/24/ | Hospital | [facility] | Jarod Chaves | | | 2008 | Encounter | MED CTR EMERGENCY | MD Curt [address] | | | | | CENTER [address] | [facility] | | | | | [place], [place] | [facility] [place] [address] | | | | | [address] | [phone] | | | | | [phone] | | | +--------+ + + + [...]
--- OUTSIDE RECORDS SUMMARY | ~2019-03-29 | XMS | Encounter Summary ---
Demographics + + + | Address | [address] | | | [place] [address] | + + + | Home Phone | | + + + | Preferred Language | Unknown | + + + | Marital Status | Single | + + + | Church Affiliation | 1041 | + + + | Race | Unknown | + + + | Ethnic Group | Unknown | + + + Author + + + | Author | [facility] | | | and [place]ay[place] | + + + | Organization | [facility] | | | and [...] Providers + +------+ + | Care Sales Inspector Name | Role | Phone | + +------+ + PCP | Unavailable | + +------+ + Encounter Details +--------+ + + + + | Date | Type | Department | Care Team | Description | +--------+ + + + + | 12/04/ | Abstract | [place] [facility] | DATA MIGRATION DOMENIC | | | 2011 | | Conversion Location | SR | | | | | [phone] | | | +--------+ + + + [...] + + + | Blood Pressure | 100/76 | 10/27/2009 12:00 AM | | | | | PDT [...] + + + + | Weight | 123.2 kg (271 lb 9.6 | 10/27/2009 12:00 AM | | | | oz) | PDT | | + + + + + | Height | 182.9 cm (6') | 09/22/2009 12:00 AM | | | | | PDT | | + + + + + | Body Mass Index | 36.84 | 09/22/2009 12:00 AM | | | | | PDT | | + + + + + documented in this encounter Plan of Treatment Not on filedocumented as of this encounter Visit Diagnoses Not on filedocumented in this encounter"
--- OUTSIDE RECORDS SUMMARY | ~2019-03-29 | XMS | Encounter Summary ---
Demographics + + + | Address | [address] | | | [place] [address] | + + + | Home Phone | | + + + | Preferred Language | Unknown | + + + | Marital Status | Single | + + + | Cheondoism Affiliation | 1041 | + + + | Race | Unknown | + + + | Ethnic Group | Unknown | + + + Author + + + | Author | [facility] | | | and [place] | + + + | Organization | [facility] [...] Team Providers + +------+ + | Care Tour Bus Driver/Guide Name | Role | Phone | + +------+ + | Yovani Alonso MD | PCP | | + +------+ + Encounter Details +--------+ + + + + | Date | Type | Department | Care Team | Description | +--------+ + + + + | 03/02/ | Abstract | [facility] [place] | Russel Chiang | | | 2013 | | CARDIOLOGY [address] | MD Juice [address] | | | | | [place], | [address] [place] | | | | | [place] [address] | [place] [address] | | | | | [phone] | [phone] | | | | | | | [...] | + +--------+ + + + | EXTERNAL LAB: | Routin | 04/14/2013 | | Results for this | | GLUCOSE | e | 9:16 AM | | procedure are in the | | | | PST | | results section. | + +--------+ + + + | EXTERNAL LAB: | Routin | 04/14/2013 | | Results for this | | POTASSIUM | e | 9:16 AM | | procedure are in the | | | | PST | | results section. | + +--------+ + + + | EXTERNAL LAB: SODIUM | Routin | 04/14/2013 | | Results for this | | | e | 9:16 AM | | procedure are in the | | | | PST | | results section. | + +--------+ + + + | EXTERNAL LAB: EGFR | Routin | 04/14/2013 | | Results for this | | | e | 9:16 AM | | procedure are in the | | | | PST | | results section. | + +--------+ + + + | EXTERNAL LAB: | Routin | 04/14/2013 | | Results for this | | CREATININE | e | 9:16 AM | | procedure are in the | | | | PST | | results section. | + +--------+ + + + | HEMOGLOBIN A1C | Routin | 04/14/2013 | | Results for this | | | e | 9:16 AM | | procedure are in the | | | | PST | | results section. | + +--------+ + + + documented in this encounter Results Hemoglobin A1C (04/14/2013 9:16 AM PST) + +-------+ + + + | Component | Value | Ref Range | Performed | Pathologist | | | | | At | Signature | + +-------+ + + + | Hemoglobin | 5.5 | 4.0 - 5.6 % | EXTERNAL | | | A1c | | | LAB | | + +-------+ + + + + + | Specimen | + + | Blood specimen | | (specimen) | + + + + | Resulting Agency Comment | + + | [facility] | + + + +---------+ + + | Performing | Address | City/State/Zipcode | Phone Number | | Organization | | | | + +---------+ + + | EXTERNAL LAB | | | | + +---------+ + + External Lab: Glucose (04/14/2013 9:16 AM PST) + +---------+ + + + | Component | Value | Ref Range | Performed | Pathologist | | | | | At | Signature | + +---------+ + + + | Glucose, | 105 (A) | 65 - 99 | EXTERNAL | | | External | | | LAB | | + +---------+ + + + + + | Resulting Agency Comment | + + | [facility] | + + + +---------+ + + | Performing | Address | City/State/Zipcode | Phone Number | | Organization | | | | + +---------+ + + | EXTERNAL LAB | | | | + +---------+ + + External Lab: Potassium (04/14/2013 9:16 AM PST) + +---------+ + + + | Component | Value | Ref Range | Performed | Pathologist | | | | | At | Signature | + +---------+ + + + | Potassium, | 3.4 (A) | 3.5 - 5.3 | EXTERNAL | | | External | | | LAB | | + +---------+ + + + + + | Resulting Agency Comment | + + | [facility] | + + + +---------+ + + | Performing | Address | City/State/Zipcode | Phone Number | | Organization | | | | + +---------+ + + | EXTERNAL LAB | | | | + +---------+ + + External Lab: Sodium (04/14/2013 9:16 AM PST) + +-------+ + + + | Component | Value | Ref Range | Performed | Pathologist | | | | | At | Signature | + +-------+ + + + | Sodium, | 139 | 135 - 145 | EXTERNAL | | | External | | | LAB | | + +-------+ + + + + + | Resulting Agency Comment | + + | [facility] | + + + +---------+ + + | Performing | Address | City/State/Zipcode | Phone Number | | Organization | | | | + +---------+ + + | EXTERNAL LAB | | | | + +---------+ + + External Lab: eGFR (04/14/2013 9:16 AM PST) + +-------+ + + + | Component | Value | Ref Range | Performed | Pathologist | | | | | At | Signature | + +-------+ + + + | eGFR, | >60 | 60 - 99,999 | EXTERNAL | | | External | | | LAB | | + +-------+ + + + | eGFR, | | | EXTERNAL | | | | | | LAB | | | [place]ian, | | | | | | External | | | | | + +-------+ + + + + + | Specimen | + + | Blood specimen | | (specimen) | + + + + | Resulting Agency Comment | + + | [facility] | + + + +---------+ + + | Performing | Address | City/State/Zipcode | Phone Number | | Organization | | | | + +---------+ + + | EXTERNAL LAB | | | | + +---------+ + + External Lab: Creatinine (04/14/2013 9:16 AM PST) + +-------+ + + + | Component | Value | Ref Range | Performed | Pathologist | | | | | At | Signature | + +-------+ + + + | Creatinine, | 1.05 | 0.7 - 1.3 | EXTERNAL | | | External | | | LAB | | + +-------+ + + + + + | Specimen | + + | Blood specimen | | (specimen) | + + + + | Resulting Agency Comment | + + | [facility] | + + + +---------+ + + | Performing | Address | City/State/Zipcode | Phone Number | | Organization | | | | + +---------+ + + | EXTERNAL LAB | | | | + +---------+ + + documented in this encounter Visit Diagnoses Not on filedocumented in this encounter"
--- OUTSIDE RECORDS SUMMARY | ~2019-03-29 | XMS | Encounter Summary ---
Demographics + + + | Address | [address] | | | [place] [address] | + + + | Home Phone | | + + + | Preferred Language | Unknown | + + + | Marital Status | Single | + + + | Scientology Affiliation | 1041 | + + + | Race | Unknown | + + + | Ethnic Group | Unknown | + + + Author + + + | Author | [facility] | | | and Chayana | + + + | Organization | [facility] | | | and [...] Team Providers + +------+ + | Care Tmd Teacher Name | Role | Phone | + +------+ + PCP | Unavailable | + +------+ + Encounter Details +--------+ + + + + | Date | Type | Department | Care Team | Description | +--------+ + + + + | 06/21/ | Hospital | [facility] | Cyndi Dias | | | 2011 | Encounter | MED CTR EMERGENCY | DO Khurram Smith | | | | | CENTER [address] | [place], [place] | | | | | [place], [place] | [id number] | | | | | [address] | | | | | | [phone] | | | +--------+ + + + [...] + | [facility] | [address] | [place], [place] | [phone] | | [facility] | | [address] | | | - LABORATORY | | | | + + + + + | [facility] | [address] | [place], [place] | | | [facility] | | [address] | | | - LABORATORY | | [...] + | [facility] | [address] | [place] | [phone] | | [facility] | | [address] | | | - LABORATORY | | | | + + + + + | [facility] | [address] | [place] | | | [facility] | | [address] | | | - LABORATORY | | | | + + + + + CT Renal Stone Wo Contrast (06/22/2011 6:30 PM PDT) + + | Specimen | + + | | + + + + + | Narrative | Performed At | + + + | [facility] Diagnostic Imaging Department | [facility] | | [address] [facility] | [facility] | | CT ABDOMEN RENAL STONE: | [...] | GABY ON 06/22/2011, AT 8:15 P.M., [place] TIME . Dictated | | | Date/Time: 06/23/2011 09:00 Transcribed Date/Time: 06/23/2011 | | | 09:35 Building Architectural Designer: <Electronically Signed by Jw Jarrett | | | MD Mikael> 06/23/11 1006 | | + + + + + | Procedure Note | + + | Rao, Rad Conversion - 05/01/2013 5:[address] [facility] | | Diagnostic Imaging Department [address] [place] [address] | | CT ABDOMEN RENAL STONE: 06/22/2011 [...] DR. GRIFFIN ON 06/22/2011, AT 8:15 P.M., [facility]. Dictated | | Date/Time: 06/23/2011 09:00Transcribed Date/Time: [...] DR. GRIFFIN ON 06/22/2011, AT 8:15 P.M., [facility] TIME | |. | | | |Dictated Date/Time: 06/23/2011 09:00 | |Transcribed Date/Time: 06/23/2011 09:35 | |Building Architectural Designer: | |<Electronically Signed by Jw Youssef MD> [...]
--- OUTSIDE RECORDS SUMMARY | ~2019-03-29 | XMS | Encounter Summary ---
Demographics + + + | Address | [address] | | | [place] [address] | + + + | Home Phone [...] + | Author | [facility] | | | and Chayana | + + + | Organization | [facility] [...] Team Providers + +------+ + | Care Senior Living Advisor Name | Role | Phone | + +------+ + | Yovani Alonso MD | PCP | | + +------+ + Encounter Details +--------+---------+ + + + | Date | Type | Department | Care Team | Description | +--------+---------+ + + + | 06/09/ | Office | [facility] | Ubaldo Xie | NO SHOW (Primary Dx) | | 2015 | Visit | SLEEP DISORDER [address] | MD Lucas [address] | | | | | [address] [place] | [address] | | | | | [place], [place] [address] | [place] [address] | | | | | [phone] | [phone] | | | | | | | [...] Progress Notes Ubaldo Xie Jr., MD - 06/09/2014 4:13 PM PDTThe patient was a No Show for today's f/u appointment. docu mented in this encounter Plan of Treatment Not on filedocumented as of this encounter Visit Diagnoses + + | Diagnosis | + + | No Show - Primary Code used for vists where the patient is not seen | + + documented in this encounter"
--- OUTSIDE RECORDS SUMMARY | ~2019-03-29 | XMS | Encounter Summary ---
Demographics + + + | Address | [address] | | | [place] [address] | + + + | Home Phone [...] | [facility] | | | and Chayana | + + + | Organization | [facility] | | | and [...] Team Providers + +------+ + | Care Coal Trimmer Machine Operator Name | Role | Phone | + +------+ + | Yovani Alonso MD | PCP | | + +------+ + Encounter Details +--------+ + + + + | Date | Type | Department | Care Team | Description | +--------+ + + + + | 08/20/ | Hospital | [facility] | Yovani Alonso MD | | | 2012 | Encounter | MED CTR XRAY [address] | [address] [facility] | | | | | [place] | [place] | | | | | [place] [address] | [address] | | | | | [phone] | | | +--------+ + + + [...] Performed At | + + + | [facility] Diagnostic Imaging | [place] | | Department [address] [place] [address] | [facility] | | [ rep [address]] [ rep [facility] | | [facility]] Signed | - IMAGING | | | | | Patient Name: JUNIOR VEGA | | | Physician: HELIO : 1960 Age: 52 Sex: M Unit | | | #: [id number] Exam Date: 08/20/12 Location: | | | [facility] Report #: [id number] Page: | | | %(RAD)RES..mtdd.print.filter("pg") of %(RAD) | | | RES..mtdd.print.filter("tpg") | | | | | | Accession Number: [id number] | | | E C H O C A R D I O G R A P H Y R E P O R T | | | HEIGHT: 72" WEIGHT: 254# | | | OFFAL SEPARATOR: NIYA REFERRING DR: ENE BRODERICK DR: | [...] Transcribed Date/Time: | | | 08/20/2012 17:17 Cashier Courtesy Booth: | | | <<Signature on File>> | | | S | | | Juice Chiang MD08/22/12 1008 <Electronically signed by S S. | | | Андрей MARIE> S Juice Chiang MD 08/20/12 8608 | | | Cashier Courtesy Booth: Jimmy Fairlycorine Cemhbpthviwab17/29/13 1253 | | | Yovani Alonso MD | | + + + + + + + + | Performing | Address | City/State/Zipcode | Phone Number | | Organization | | | | + + + + + | [facility] | [address] | [place] | [phone] | | [facility] | | [address] | | | - IMAGING | | | | + + + + + documented in this encounter Visit Diagnoses Not on filedocumented in this encounter
--- OUTSIDE RECORDS SUMMARY | ~2019-03-29 | XMS | Encounter Summary ---
Demographics + + + | Address | [address] | | | [place] [address] | + + + | Home Phone | | + + + | Preferred Language | Unknown | + + + | Marital Status | Single | + + + | Church Affiliation | 1041 | + + + | Race | Unknown | + + + | Ethnic Group | Unknown | + + + Author + + + | Author | [facility] | | | and [place]ay[place] | + + + | Organization | [facility] | [...] Team Providers + +------+ + | Care Surgical Brace Maker Name | Role | Phone | + +------+ + PCP | Unavailable | + +------+ + Encounter Details +--------+ + + + + | Date | Type | Department | Care Team | Description | +--------+ + + + + | 09/26/ | Hospital | [facility] | Rashel Mcdonald, | | | 2005 | Encounter | MED CTR XRAY [address] | [address] | | | | | [place] | [place] | | | | | [place] [address] | [address] | | | | | [phone] | | | +--------+ + + + [...]
--- OUTSIDE RECORDS SUMMARY | ~2019-03-29 | XMS | Encounter Summary ---
Demographics + + + | Address | [address] | | | [place] [address] | + + + | Home Phone | | + + + | Preferred Language | Unknown | + + + | Marital Status | Single | + + + | Christianity Affiliation | 1041 | + + + | Race | Unknown | + + + | Ethnic Group | Unknown | + + + Author + + + | Author | [facility] | | | and [place]ay[place] | + + + | Organization | [facility] | | [...] Team Providers + +------+ + | Care Perforating Machine Operator Name | Role | Phone | + +------+ + | Yovani Alonso MD | PCP | | + +------+ + Reason for Visit Diagnostic/Screening (Routine) +--------+--------+ + + + + | Status | Reason | Specialty | Diagnoses / | Referred By | Referred To | | | | | Procedures | Contact | Contact | +--------+--------+ + + + + | Closed | | Radiology | Diagnoses | Echaiz | | | | | | Nausea with | Brent Coats | | | | | | vomiting | Blayne | | | | | | Procedures | [address] | | | | | | CT Abdomen | [address] | | | | | | Pelvis w | [place] | | | | | | Contrast | [address] | | | | | | | Phone: | | | | | | | [phone] | | | | | | | Fax: | | | | | | | [phone] | | +--------+--------+ + + + + Encounter Details +--------+ + + + + | Date | Type | Department | Care Team | Description | +--------+ + + + + | 11/13/ | Hospital | [facility] | Donell Coats, | Nausea with vomiting | | 2013 | Encounter | MED CTR CT [address] | Brent Cisneros MD | | | | | [place], | [address] | | | | | [place] [address] | [place] [address] | | | | | [phone] | [phone] | | | | | | | | | | | | Brent Metz | | | | | | Bl[place]ne WILL | | | | | | Jw Youssef MD | | | | | | [address] | | | | | | [place] | | | | | | [address] | | | | | | [phone] | | | | | | | [...] spray each nostril | | 0 | 09/13/20 | | | (FLONASE) 50 | once [...] + +--------+ + + + | CT ABDOMEN PELVIS W | Routin | 11/13/2013 | Nausea with | Results for this | | CONTRAST | e | 2:34 PM | vomiting | procedure are in the | | | | PDT | | results section. | + +--------+ + + + documented in this encounter Results CT Abdomen Pelvis w Contrast (11/13/2013 2:34 PM PDT) + + | Specimen | + + | | + + + + + | Narrative | Performed At | + + + | EXAM: CT ABDOMEN PELVIS W CONTRAST dated 11/13/2013 2:23 PM | [facility] | | HISTORY:NAUSEA W/VOMITING Comparison: 12/07/2013 CT abdomen renal | | | stone. Other CT renal stone examination dating to 2005. | | | TECHNIQUE: Imaging is performed from the lung bases through the pubic | | | symphysis with oral contrast and following the uneventful intravenous | | | administration of 85 mL Omnipaque 350. DOSE: DLP 766.35 mGy-cm | | | FINDINGS: LUNG BASES: The lung bases are clear. There is | | | no visible pleural effusion or pneumothorax. There is no | | | significant pericardial thickening. LIVER: There is a hypodensity | | | in the left lobe of the liver near the gastroesophageal junction. | | | Its Hounsfield units are greater than fluid. Measures 18 mm. | | | However, is been present dating to at least 2005. Was larger at | | | that time. The liver is otherwise unremarkable. GALLBLADDER: The | | | gallbladder is surgically absent. The intrahepatic and | | | extrahepatic biliary ducts are appropriate given the postsurgical | | | state. SPLEEN: The spleen is unremarkable. There is no | | | splenomegaly. PANCREAS: The pancreas is unremarkable. The | | | pancreatic duct is not dilated. ADRENALS: No adrenal enlargement. | | | No adrenal masses. KIDNEYS: The kidneys are symmetrically | | | enhancing. There are no focal renal lesions. There is no | | | nephrolithiasis. There is no obstructive uropathy. BOWEL: | | | Diverticular disease in the sigmoid colon. No evidence to suggest | | | active diverticulitis. There is no gastrointestinal tract | | | obstruction. Contrast has transited the small bowel and is in the | | | colon. VASCULATURE AND LYMPH NODES: No aneurysmal dilatation of | | | the abdominal aorta. No lymphadenopathy. BLADDER: The bladder is | | | decompressed and not well evaluated. BONES: Stable anterior | | | compression deformity of T12. Stable degenerative changes including | | | bilateral pars defects at L5 and L5 anterolisthesis. Healed right | | | rib fractures. OTHER: There is no free fluid. There is no free | | | air. IMPRESSION - Negative for acute abdominal or pelvic | | | process. No evidence for gastrointestinal tract obstruction. | | | Sigmoid diverticulosis without evidence of active diverticulitis. | | | No obstructive uropathy. Dictated and Signed by: Jw Jarrett | | | MD Mikael Electronically signed: 11/13/2013 3:31 PM | | + + + + + | Procedure Note | + + | Rao, Rad Results In - 11/13/2013 3:34 PM PDT EXAM: CT ABDOMEN PELVIS W CONTRAST | | dated 11/13/2013 2:23 PMHISTORY:NAUSEA W/VOMITINGComparison: 12/07/2013 CT abdomen renal | | stone. Other CT renal stone examinationdating to 2005.TECHNIQUE: Imaging is performed | | from the lung bases through the pubic symphysiswith oral contrast and following the | | uneventful intravenous administration of 85mL Omnipaque 350.DOSE: DLP 766.35 | | mGy-cmFINDINGS: LUNG BASES: The lung bases are clear. There is no visible pleural | | effusion orpneumothorax. There is no significant pericardial thickening.LIVER: There is | | a hypodensity in the left lobe of the liver near thegastroesophageal junction. Its | | Hounsfield units are greater than fluid. Measures 18 mm. However, is been present | | dating to at least 2005. Was largerat that time. The liver is otherwise | | unremarkable.GALLBLADDER: The gallbladder is surgically absent. The intrahepatic | | andextrahepatic biliary ducts are appropriate given the postsurgical state.SPLEEN: The | | spleen is unremarkable. There is no splenomegaly.PANCREAS: The pancreas is | | unremarkable. The pancreatic duct is not dilated.ADRENALS: No adrenal enlargement. No | | adrenal masses.KIDNEYS: The kidneys are symmetrically enhancing. There are no focal | | renallesions. There is no nephrolithiasis. There is no obstructive uropathy.BOWEL: | | Diverticular disease in the sigmoid colon. No evidence to suggest activediverticulitis. | | There is no gastrointestinal tract obstruction. Contrast hastransited the small bowel | | and is in the colon.VASCULATURE AND LYMPH NODES: No aneurysmal dilatation of the | | abdominal aorta. No lymphadenopathy.BLADDER: The bladder is decompressed and not well | | evaluated.BONES: Stable anterior compression deformity of T12. Stable | | degenerativechanges including bilateral pars defects at L5 and L5 anterolisthesis. | | Healedright rib fractures.OTHER: There is no free fluid. There is no free | | air.IMPRESSION - Negative for acute abdominal or pelvic process.No evidence for | | gastrointestinal tract obstruction.Sigmoid diverticulosis without evidence of active | | diverticulitis.No obstructive uropathy.Dictated and Signed by: Jw Youssef MD | | Electronically signed: 11/13/2013 3:31 PM | | | |PANCREAS: The pancreas is unremarkable. The pancreatic duct is not dilated. | | | |ADRENALS: No adrenal enlargement. No adrenal masses. | | | |KIDNEYS: The kidneys are symmetrically enhancing. There are no focal renal | |lesions. There is no nephrolithiasis. There is no obstructive uropathy. | | | |BOWEL: Diverticular disease in the sigmoid colon. No evidence to suggest active | |diverticulitis. There is no gastrointestinal tract obstruction. Contrast has | |transited the small bowel and is in the colon. | | | |VASCULATURE AND LYMPH NODES: No aneurysmal dilatation of the abdominal aorta. | |No lymphadenopathy. | | | |BLADDER: The bladder is decompressed and not well evaluated. | | | |BONES: Stable anterior compression deformity of T12. Stable degenerative | |changes including bilateral pars defects at L5 and L5 anterolisthesis. Healed | |right rib fractures. | | | |OTHER: There is no free fluid. There is no free air. | | | |IMPRESSION - | | | |Negative for acute abdominal or pelvic process. | | | |No evidence for gastrointestinal tract obstruction. | | | |Sigmoid diverticulosis without evidence of active diverticulitis. | | | |No obstructive uropathy. | | | | | | | |Dictated and Signed by: Jw Youssef MD | | Electronically signed: 11/13/2013 3:31 PM | + + + +---------+ + + | Performing | Address | City/State/Zipcode | Phone Number | | Organization | | | | + +---------+ + + | [facility] | | | | + +---------+ + + documented in this encounter Visit Diagnoses + + | Diagnosis | + + | Nausea with vomiting | + + documented in this encounter Administered Medications + +--------+ +--------+------+------+ | Medication Order | MAR | Action | Dose | Rate | Site | | | Action | Date | | | | + +--------+ +--------+------+------+ | iohexol (OMNIPAQUE 350) 350 | Given | 11/14/19 | 85 mLs | | | | mg/mL injection 85 mL 85 mL, | | 14 2:35 | | | | | Intravenous, ONCE PRN, Other, | | PM PDT | | | | | Starting 11/13/13 at 1434, For | | | | | | | 1 dose, Cat Scanner | | | | | | + +--------+ +--------+------+------+ +---+---+ | | | +---+---+ documented in this encounter"
--- OUTSIDE RECORDS SUMMARY | ~2019-03-29 | XMS | Encounter Summary ---
Demographics + + + | Address | [address] | | | [place] [address] | + + + | Home Phone | | + + + | Preferred Language | Unknown | + + + | Marital Status | Single | + + + | Yarsani Affiliation | 1041 | + + + | Race | Unknown | + + + | Ethnic Group | Unknown | + + + Author + + + | Author | [facility] | | | and [place] | + + + | Organization | [facility] | | | and [...] Team Providers + +------+ + | Care Assistant Center Manager Name | Role | Phone | + +------+ + PCP | Unavailable | + +------+ + Encounter Details +--------+ + + + + | Date | Type | Department | Care Team | Description | +--------+ + + + + | 01/09/ | Hospital | [facility] | | | | 2008 | Encounter | MED CTR EMERGENCY | | | | | | CENTER [address] | | | | | | [place] | | | | | | [address] | | | | | | [phone] | | | +--------+ + + + [...]
--- OUTSIDE RECORDS SUMMARY | ~2019-03-29 | XMS | Encounter Summary ---
Demographics + + + | Address | [address] | | | [place] [address] | + + + | Home Phone | | + + + | Preferred Language | Unknown | + + + | Marital Status | Single | + + + | Synagogue Affiliation | 1041 | + + + | Race | Unknown | + + + | Ethnic Group | Unknown | + + + Author + + + | Author | [facility] | | | and [place] | + + + | Organization | [facility] [...] Team Providers + +------+ + | Care Siderographer Name | Role | Phone | + +------+ + PCP | Unavailable | + +------+ + Encounter Details +--------+ + + + + | Date | Type | Department | Care Team | Description | +--------+ + + + + | 10/06/ | Hospital | [facility] | Rashel Mcdonald, | | | 2009 | Encounter | MED CTR GENERIC OP | MD [address] | | | | | CONV DEPT [address] | [place] | | | | | [place], | [address] | | | | | [place] [address] | | | | | | [phone] | | | +--------+ + + + [...]
--- OUTSIDE RECORDS SUMMARY | ~2019-03-29 | XMS | Encounter Summary ---
Demographics + + + | Address | [address] | | | [place] [address] | + + + | Home Phone | | + + + | Preferred Language | Unknown | + + + | Marital Status | Single | + + + | Mandaen Affiliation | 1041 | + + + | Race | Unknown | + + + | Ethnic Group | Unknown | + + + Author + + + | Author | [facility] | | | and [place] | + + + | Organization | [facility] | | | and [...] Team Providers + +------+ + | Care Instrument Assembler Name | Role | Phone | + +------+ + PCP | Unavailable | + +------+ + Encounter Details +--------+ + + + + | Date | Type | Department | Care Team | Description | +--------+ + + + + | 10/31/ | Hospital | [facility] | | | | 2005 | Encounter | MED CTR EMERGENCY | | | | | | CENTER [address] | | | | | | [place] | | | | | | [address] | | | | | | [phone] | | | +--------+ + + + [...]
--- OUTSIDE RECORDS SUMMARY | ~2019-03-29 | XMS | Encounter Summary ---
Demographics + + + | Address | [address] | | | [place] [address] | + + + | Home Phone [...] Author | [facility] | | | and [place]ayana | + + + | Organization | [facility] [...] Providers + +------+ + | Care Clinical Services Assistant Name | Role | Phone | [...] 2012 | | GASTROENTEROLOGY | [address] | | | | | [address] [place] | [address] [place], | | | | | [address] [place], [place] | [place] [address] | | | | | [address] | [phone] | | | | | [phone] | | | +--------+ + + + [...]
--- OUTSIDE RECORDS SUMMARY | ~2019-03-29 | XMS | Encounter Summary ---
Demographics + + + | Address | [address] | | | [place] [address] | + + + | Home Phone | | + + + | Preferred Language | Unknown | + + + | Marital Status | Single | + + + | Restoration Affiliation | 1041 | + + + | Race | Unknown | + + + | Ethnic Group | Unknown | + + + Author + + + | Author | [facility] | | | and [place] | + + + | Organization | [facility] [...] Team Providers + +------+ + | Care Auto Body Repair Technician Name | Role | Phone | + +------+ + PCP | Unavailable | + +------+ + Encounter Details +--------+ + + + + | Date | Type | Department | Care Team | Description | +--------+ + + + + | 01/11/ | Hospital | [facility] | Hernan Diaz, | | | 2009 | Encounter | MED CTR EMERGENCY | [address] | | | | | CENTER [address] | [place] | | | | | [place] | [address] | | | | | [address] | | | | | | [phone] | | | +--------+ + + + [...]
--- OUTSIDE RECORDS SUMMARY | ~2019-03-29 | XMS | Encounter Summary ---
Demographics + + + | Address | [address] | | | [place] [address] | + + + | Home Phone | | + + + | Preferred Language | Unknown | + + + | Marital Status | Single | + + + | Baptist Affiliation | 1041 | + + + | Race | Unknown | + + + | Ethnic Group | Unknown | + + + Author + + + | Author | [facility] | | | and [place] | + + + | Organization | [facility] | | | and [...] Team Providers + +------+ + | Care Mink Farmer Name | Role | Phone | + +------+ + | Yovani Alonso MD | PCP | | + +------+ + Encounter Details +--------+ + + + + | Date | Type | Department | Care Team | Description | +--------+ + + + + | 08/21/ | Hospital | [facility] | Jarod Chaves | | | 2012 | Encounter | MED CTR EMERGENCY | MD Curt [address] | | | | | CENTER [address] | [address] | | | | | [place] | [place] [address] | | | | | [address] | [phone] | | | | | [phone] | | | +--------+ + + + [...] + + + +---------+ + + | acyclovir | Take 800 mg by mouth | | 0 | | | | (ZOVIRAX) 800 mg | 4 times daily. | | | | 3 | | tablet | | [...] + + + +---------+ + + | DiphenhydrAMINE | Take 1 tablet by | | 0 | | | | HCl, Sleep, 50 MG | mouth nightly. | | | | 3 | | CAPS | | | | | | + [...] RIGHT 3 + VW | Routin | 08/22/2012 | | Results for this | | | e | 8:33 AM | | procedure are in the | | | | PDT | | results section. | + +--------+ + + + | XR ANKLE RIGHT 3 + | Routin | 08/22/2012 | | Results for this | | VW | e | 8:33 AM | | procedure are in the | | | | PDT | | results section. | + +--------+ + + + documented in this encounter Results XR Ankle Right 3 + Vw (08/22/2012 8:33 AM PDT) + + | Specimen | + + | | + + + + + | Narrative | Performed At | + + + | [facility] | [place] | | Department [address] [facility] | [facility] | | [ rep [address]] [ rep [facility] | | st zip] Signed | - IMAGING | | | | | Patient Name: DWAINE VEGA | | | Physician: MATT : 1960 Age: 52 Sex: M Unit | | | #: [id number] Exam Date: 08/21/12 Location: | | | ER Report #: [id number] Page: | | | %(RAD)RES..mtdd.print.filter("pg") of %(RAD) | | | RES..mtdd.print.filter("tpg") | | | | | | Accession Number: [id number] | | | RIGHT ANKLE, RIGHT FOOT, 08/22/2012 CLINICAL HISTORY: | | | PAIN. COMPARISON: 11/24/2008 right ankle. | | | FINDINGS: RIGHT ANKLE: Three views of the right ankle. | | | Old avulsion off the lateral malleolus. Degenerative changes in the | | | medial ankle. Normal mineralization. Normal alignment. No acute | | | osseous abnormalities. No significant interval change. RIGHT | | | FOOT: Three views of the right foot. Degenerative changes | | | at the ankle. Achilles insertional enthesopathy. Bipartite medial | | | sesamoid. Normal mineralization. Normal alignment. No fracture. | | | IMPRESSION: 1. POSTTRAUMATIC DEGENERATIVE CHANGES IN THE | | | RIGHT ANKLE. 2. NO ACUTE OSSEOUS ABNORMALITY. | | | Dictated Date/Time: 08/22/2012 08:33 Transcribed | | | Date/Time: 08/22/2012 09:42 Design Center Consultant: | | | <<Signature on File>> | | | Jw | | | Luiza Youssef MD08/22/12 1133 <Electronically signed by Jw Jean | Ted Youssef MD> Jw Youssef MD 08/22/12 0833 | | | Design Center Consultant: Advisor Client Match [id number]/31/13 0942 | | | Jarod Chaves MD | | + + + + + + + + | Performing | Address | City/State/Zipcode | Phone Number | | Organization | | | | + + + + + | [address] | [address] | [place] | [phone] | | [facility] | | [address] | | | - IMAGING | | | | + + + + + XR Foot Right 3 + Vw (08/22/2012 8:33 AM PDT) + + | Specimen | + + | | + + + + + | Narrative | Performed At | + + + | [facility] | [place] | | Department [address] [place] [address] | [facility] | | [ rep [address]] [ rep [facility] | | [facility]] Signed | - IMAGING | | | | | Patient Name: DWAINE VEGA Kp | | | Physician: MATT : 1960 Age: 52 Sex: M Unit | | | #: [id number] Exam Date: 08/21/12 Location: | | | ER Report #: [id number] Page: | | | %(RAD)RES..mtdd.print.filter("pg") of %(RAD) | | | RES..mtdd.print.filter("tpg") | | | | | | Accession Number: [id number] | | | RIGHT ANKLE, RIGHT FOOT, 08/22/2012 CLINICAL HISTORY: | | | PAIN. COMPARISON: 11/24/2008 right ankle. | | | FINDINGS: RIGHT ANKLE: Three views of the right ankle. | | | Old avulsion off the lateral malleolus. Degenerative changes in the | | | medial ankle. Normal mineralization. Normal alignment. No acute | | | osseous abnormalities. No significant interval change. RIGHT | | | FOOT: Three views of the right foot. Degenerative changes | | | at the ankle. Achilles insertional enthesopathy. Bipartite medial | | | sesamoid. Normal mineralization. Normal alignment. No fracture. | | | IMPRESSION: 1. POSTTRAUMATIC DEGENERATIVE CHANGES IN THE | | | RIGHT ANKLE. 2. NO ACUTE OSSEOUS ABNORMALITY. | | | Dictated Date/Time: 08/22/2012 08:33 Transcribed | | | Date/Time: 08/22/2012 09:42 Design Center Consultant: | | | <<Signature on File>> | | | Jw | | | Luiza Youssef MD08/22/12 1133 <Electronically signed by Jw Jarrett | | | Mikael MARIE> Jw Youssef MD 08/22/12 7635 | | | Design Center Consultant: Avis [id number] | | | Jarod Chaves MD | | + + + + + + + + | Performing | Address | City/State/Zipcode | Phone Number | | Organization | | | | + + + + + | [address] | [address] | [place] | [phone] | | [facility] | | [address] | | | - IMAGING | | | | + + + + + documented in this encounter Visit Diagnoses Not on filedocumented in this encounter
--- OUTSIDE RECORDS SUMMARY | ~2019-03-29 | XMS | Encounter Summary ---
Demographics + + + | Address | [address] | | | [place] [address] | + + + | Home Phone [...] Author | [facility] | | | and [place]ayana | + + + | Organization | [facility] | | | and [...] Providers + +------+ + | Care Manufacturing Machine Operator Name | Role | Phone [...] [address] | | | | | [facility] | [facility] [place] | | | | | [place] | [address] | | | | | [address] | | | | | | [phone] | | | +--------+--------+ + + + [...]
--- OUTSIDE RECORDS SUMMARY | ~2019-03-29 | XMS | Encounter Summary ---
Demographics + + + | Address | [address] | | | [place] [address] | + + + | Home Phone [...] | [facility] | | | and [place]ay[place] | + + + | Organization | [facility] [place] [facility] | | | and [place]ay[place] [...] Team Providers + +------+ + | Care Yoga Instructor Name | Role | Phone | + [...] (coronary | MD Juice | [address] | | | | | artery | [address] | [place], | | | | | disease) | [place] | [place] | | | | | Procedures | [place] | [address] | | | | | [place] Nuclear | [address] | Phone: | | | | | Stress Test | Phone: | [phone] | | | | | (Vasodilator | [phone] | Fax: | | | | | ) CHG | Fax: | [phone] | | | | | MYOCARDIAL | [phone] | | | | | | SPECT | | | | | | | MULTIPLE | | | | | | | STUDIES DE | | | | | | | CV STRS TST | | | | | | | XERS&/OR RX | | | | | | | CONT ECG W/O | | | | | | | I&R DE | | | | | | | CARDIAC | | | | | | | STRESS | | | | | | | TST,INTERP/R | | | | | | | EPT ONLY | | | +--------+--------+ + + + + Reason for Visit Diagnostic/Screening (Routine) +--------+--------+ [...] (coronary | MD Juice | [address] | | | | | artery | [address] | [place], | | | | | disease) | [place] | [place] | | | | | Procedures | [place], [place] | [address] | | | | | [place] Nuclear | [address] | Phone: | | | | | Stress Test | Phone: | [phone] | | | | | (Vasodilator | [phone] | Fax: | | | | | ) CHG | Fax: | [phone] | | | | | MYOCARDIAL | [phone] | | | | | | SPECT | | | | | | | MULTIPLE | | | | | | | STUDIES DE | | | | | | | CV STRS TST | | | | | | | XERS&/OR RX | | | | | | | CONT ECG W/O | | | | | | | I&R DE | | | | | | | [...] + + + + | 04/12/ | Hospital | [facility] | PatrickRussel abernathy | CAD (coronary artery | | 2015 | Encounter | MED CTR NUCLEAR | MD Juice [address] | disease) | | | | MEDICINE [address] [place] | | | | | [place], | [place] [address] | | | | | [place] [address] | [phone] | | | | | [phone] | | | +--------+ + + + [...] Weight | 97.1 kg (214 lb) | 04/12/2014 10:00 AM | | | | | PST | | + + + + + | Height | - | - | | + + + + + | Body Mass Index | 29.02 | 03/03/2014 9:04 AM | | | | | PST | | + + + + + documented in this encounter Medications at Time [...] 0 | 12/06/19 | | | (JOHNSONMAURICE FISHERXAVI) | daily | | | 12 | [...] + + documented in this encounter Results [place] Nuclear Stress Test (Vasodilator) (04/13/2014 10:33 AM PST) + + | Specimen | + + | | + + + + + | Impressions | Performed At | + + + | 1. Pharmacologic stress without diagnostic ECG changes or | [facility] | | symptoms. 2. Normal LV size and systolic function with LVEF 61%. | [facility] | | 3. No significant fixed or ischemic perfusion abnormalities noted. | [facility] | | 4. Overall this is a low-risk stress perfusion imaging study. | - IMAGING | | Signed by: Andrez Chiang MD PhD FACC 04/13/2014, 10:34 | | + + + + + + | Narrative | Performed At | + + + | NUCLEAR MEDICINE STRESS TEST REPORT | [facility] | | Patient Name: Junior Roque Jr. Study Date: 04/12/2014 | [facility] | | Primary Care Provider: Yovani Alonso MD : [facility] | | 1960 Age: 53 y.o. Gender: [...] | |Signed by: Andrez Chiang MD PhD FACC | | 04/13/2014, 10:34 | + + + + + + + | Performing | Address | City/State/Zipcode | Phone Number | | Organization | | | | + + + + + | [facility] | [address] | [place] | [phone] | | [facility] | | [address] | | | - IMAGING | | | | + + + + + documented in this encounter Visit Diagnoses + + | Diagnosis | + + | CAD (coronary artery disease) Coronary atherosclerosis of unspecified type of vessel, | | ewiiaapaayp or graft | + + documented in this encounter Administered Medications + +--------+ + +------+------+ | Medication Order | MAR | Action | Dose | Rate | Site | | | Action | Date | | | | + +--------+ + +------+------+ | technetium TC-99M sestamibi | Given | 04/12/19 | 30 | | | | (CARDIOLITE) injection 30 | | 15 10:23 | -millicu | | | | millicurie 30 -millicurie, | | AM PST | gabi | | | | Intravenous, ONCE PRN, Other, | | | | | | | Starting 04/12/14 at 1022, For | | | | | | | 1 dose, Nuclear Medicine | | | | | | + +--------+ + +------+------+ +---+---+ | | | +---+---+ documented in this encounter"
--- OUTSIDE RECORDS SUMMARY | ~2019-03-29 | XMS | Encounter Summary ---
Demographics + + + | Address | [address] | | | [place] [address] | + + + | Home Phone [...] | [facility] | | | and [place]ay[place] | + + + | Organization | [facility] | | | [...] Team Providers + +------+ + | Care Stud Sheep Farmer Name | Role | Phone | + +------+ + | Yovani Alonso MD | PCP | | + +------+ + Encounter Details +--------+ + + + + | Date | Type | Department | Care Team | Description | +--------+ + + + + | 07/25/ | Hospital | [facility] | [place], | | | 2012 - | Encounter | MED CTR EMERGENCY | [address] | | | | | CENTER [address] | [facility] | | | 07/26/ | | [place] | [place] [address] | | | 2012 | | [address] | [phone] | | | | | [phone] | | | +--------+ + + + [...] - 1.030 | [facility] | | | Deloit | | | ST[address] YEN | | [...] + | [facility] | [address] | [place], [place] | [phone] | | [facility] | | [address] | | | - LABORATORY | | | | + + + + + | [facility] | [address] | [place] | | | [facility] | | [address] | | | - LABORATORY | | | | + + + + + documented in this encounter Visit Diagnoses Not on filedocumented in this encounter"
--- OUTSIDE RECORDS SUMMARY | ~2019-03-29 | XMS | Encounter Summary ---
Demographics + + + | Address | [address] | | | [place] [address] | + + + | Home Phone | | + + + | Preferred Language | Unknown | + + + | Marital Status | Single | + + + | Druze Affiliation | 1041 | + + + | Race | Unknown | + + + | Ethnic Group | Unknown | + + + Author + + + | Author | [facility] | | | and [place] | + + + | Organization | [facility] | | [...] Team Providers + +------+ + | Care Cephalometric Technician Name | Role | Phone | + +------+ + PCP | Unavailable | + +------+ + Encounter Details +--------+ + + + + | Date | Type | Department | Care Team | Description | +--------+ + + + + | 11/20/ | Hospital | [facility] | | | | 2005 | Encounter | MED CTR LABORATORY | | | | | | [address] | | | | | | [place] | | | | | | [address] | | | | | | [phone] | | | +--------+ + + + [...]
--- OUTSIDE RECORDS SUMMARY | ~2019-03-29 | XMS | Encounter Summary ---
Demographics + + + | Address | [address] | | | [place] [address] | + + + | Home Phone | | + + + | Preferred Language | Unknown | + + + | Marital Status | Single | + + + | Evangelical Affiliation | 1041 | + + + | Race | Unknown | + + + | Ethnic Group | Unknown | + + + Author + + + | Author | [facility] | | | and [place] | + + + | Organization | [facility] | | | and [...] Team Providers + +------+ + | Care Ticker Maintainer Name | Role | Phone | + +------+ + PCP | Unavailable | + +------+ + Encounter Details +--------+ + + + + | Date | Type | Department | Care Team | Description | +--------+ + + + + | 12/23/ | Hospital | [facility] | [place], | | | 2008 - | Encounter | MED CTR EMERGENCY | Noel Tolliver MD [address] | | | | | CENTER [address] | [facility] | | | 12/24/ | | [place] | [place] [address] | | | 2008 | | [address] | [phone] | | | | | [phone] | | | +--------+ + + + [...]
--- OUTSIDE RECORDS SUMMARY | ~2019-03-29 | XMS | Encounter Summary ---
Demographics + + + | Address | [address] | | | [place] [address] | + + + | Home Phone [...] + | Author | [facility] | | | and [place] | + + + | Organization | [facility] | | | and [place] [...] Team Providers + +------+ + | Care Analytical Statistician Name | Role | Phone | + +------+ + PCP | Unavailable | + +------+ + Encounter Details +--------+ + + + + | Date | Type | Department | Care Team | Description | +--------+ + + + + | 08/28/ | Hospital | [facility] | | | | 2005 | Encounter | MED CTR LABORATORY | | | | | | [address] | | | | | | [place] | | | | | | [address] | | | | | | [phone] | | | +--------+ + + + [...]
--- OUTSIDE RECORDS SUMMARY | ~2019-03-29 | XMS | Encounter Summary ---
Demographics + + + | Address | [address] | | | [place] [address] | + + + | Home Phone [...] Author | [facility] | | | and [place] | + + + | Organization | [facility] | | [...] Team Providers + +------+ + | Care Luncheonette Operator Name | Role | Phone | + +------+ + PCP | Unavailable | + +------+ + Encounter Details +--------+ + + + + | Date | Type | Department | Care Team | Description | +--------+ + + + + | 05/21/ | Hospital | [facility] | | | | 2007 - | Encounter | MED CTR EMERGENCY | | | | | | [place] [address] | | | | 05/22/ | | [place] | | | | 2007 | | [address] | | | | | | [phone] | | | +--------+ + + + [...]
--- OUTSIDE RECORDS SUMMARY | ~2019-03-29 | XMS | Encounter Summary ---
Demographics + + + | Address | [address] | | | [place] [address] | + + + | Home Phone | | + + + | Preferred Language | Unknown | + + + | Marital Status | Single | + + + | Protestant Affiliation | 1041 | + + + | Race | Unknown | + + + | Ethnic Group | Unknown | + + + Author + + + | Author | [facility] | | | and [place] | + + + | Organization | [facility] | | | and [place] [...] Team Providers + +------+ + | Care Flight Information Expediter Name | Role | Phone | + +------+ + | Yovani Alonso MD | PCP | | + +------+ + Encounter Details +--------+ + + + + | Date | Type | Department | Care Team | Description | +--------+ + + + + | 05/03/ | Orders Only | [facility] | Delaney Gutierrez, | | | 2014 | | CARDIOLOGY [address] | RN | | | | | [address] [place], | | | | | | [place] [address] | | | | | | [phone] | | | +--------+ + + + [...]
--- OUTSIDE RECORDS SUMMARY | ~2019-03-29 | XMS | Encounter Summary ---
Demographics + + + | Address | [address] | | | [place] [address] | + + + | Home Phone [...] Author | [facility] | | | and [place]ayana | + + + | Organization | [facility] [...] Team Providers + +------+ + | Care Case Assistant Name | Role | Phone | [...] W | immunodeficiency | | | | [place], | [address] [place] | virus infection) | | | | [place] [address] | [place] [address] | ([facility]) (Primary Dx); | | | | [phone] | [phone] | Hypertension; | | | | | [...]
--- OUTSIDE RECORDS SUMMARY | ~2019-03-29 | XMS | Encounter Summary ---
Demographics + + + | Address | [address] | | | [place] [address] | + + + | Home Phone [...] | [facility] | | | and [place] | + + + | Organization | [facility] | | | and [place] [...] Providers + +------+ + | Care Manufacturing Assembler Name | Role | Phone | [...] (coronary | MD Juice | [address] | | | | | artery | [address] | [place], | | | | | disease) | [place] | [place] | | | | | Procedures | [place] | [address] | | | | | [place] Nuclear | [address] | Phone: | | | | | Stress Test | Phone: | [phone] | | | | | (Vasodilator | [phone] | Fax: | | | | | ) CHG | Fax: | [phone] | | | | | MYOCARDIAL | [phone] | | | | | | SPECT | | | | | | | MULTIPLE | | | | | | | STUDIES NM | | | | | | | CV STRS TST | | | | | | | XERS&/OR RX | | | | | | | CONT ECG W/O | | | | | | | I&R NM | | | | | | | [...] | | | | Uncontrolled | [address] | MD Juice | | | | | | Catie Garcia. | [address] | | | | | hypertension | [place], | [place] | | | | | Procedures | [place] [address] | [place], [place] | | | | | [place] OFFICE | Phone: | [phone] Phone: | | | | | CONSULTATION | [phone] | [phone] | | | | | NEW/ESTAB | Fax: | Fax: | | | | | PATIENT 30 | [phone] | [phone] | | | | | MIN | | | +--------+--------+ + + + + Encounter Details +--------+---------+ + + + | Date | Type | Department | Care Team | Description | +--------+---------+ + + + | 03/03/ | Office | [facility] | Russel Chiang | HTN (hypertension) | | 2013 | Visit | CARDIOLOGY [address] | MD Juice [address] | (Primary Dx); CAD | | | | [address] [place], | [address] [place] | (coronary artery | | | | [place] [address] | [place] [address] | disease); Venous | | | | [phone] | [phone] | insufficiency | | | | | [...] right Lung surgery Kidney stone surgery x2, [facility] Family History Problem Relation Age of [...] at least 4. No one is at [facility] to observe him sleep. He has not been told of snoring in the past. He does admit to [facility] fatigue and lack of energy in [...] made to ensure accuracy; however, inadvertent computerized pre sales systems engineer errors may be pre sent. Electronically signed by: Andrez Chiang MD PhD [facility] 03/03/2014 documented in t his encounter Plan [...] and systolic function with LVEF 61%. | [facility] | | 3. No significant fixed or ischemic perfusion abnormalities noted. | [facility] | | 4. Overall this is a low-risk stress perfusion imaging study. | - IMAGING | | Signed by: Andrez Chiang MD PhD FACC 04/13/2014, 10:34 | | + + + + + + | Narrative | Performed At | + + + | NUCLEAR MEDICINE STRESS TEST REPORT | [facility] | | Patient Name: Junior Roque Jr. Study Date: 04/12/2014 | [facility] | | Primary Care Provider: Yovani Alonso MD : | [facility] | | 1960 Age: 53 y.o. [...] | |Signed by: Andrez Chiang MD PhD [facility] | | 04/13/2014, 10:34 | + + + + + + + | Performing | Address | City/State/Zipcode | Phone Number | | Organization | | | | + + + + + | [facility] | [address] | [place], [place] | [phone] | | [facility] | | [address] | | | - IMAGING | | [...] + | MISCELLANEOUS LAB | | | [phone] | + +---------+ + + | MISCELANIOUS LAB | | | | + +---------+ + + documented in this encounter Visit Diagnoses + + | Diagnosis | + + | HTN (hypertension) - Primary Unspecified essential hypertension | + + | CAD (coronary artery disease) Coronary atherosclerosis of unspecified type of vessel, | | redding or graft | + + | Venous insufficiency Unspecified venous (peripheral) insufficiency | + + documented in this encounter"
--- OUTSIDE RECORDS SUMMARY | ~2019-03-29 | XMS | Encounter Summary ---
Demographics + + + | Address | [address] | | | [place] [address] | + + + | Home Phone [...] | Author | [facility] | | | and [place]ay[place] | + + + | Organization | [facility] | | | and [...] Team Providers + +------+ + | Care Boilers Inspector Name | Role | Phone | + +------+ + | Yovani Alonso MD | PCP | | + +------+ + Reason for Visit + + + | Reason | Comments | + + + | ED Follow-up | room 2/ x 2 days | + + + | Scabies (Possible) | | + + + Encounter Details +--------+---------+ + + + | Date | Type | Department | Care Team | Description | +--------+---------+ + + + | 07/14/ | Office | [facility] | Renetta Falk | Scabies (Primary Dx) | | 2012 | Visit | CON[facility]IENT [facility] [address] | MD Yvonne [address] | | | | | [facility] | [facility] | | | | | [facility] [place] | [place] [address] | | | | | [address] | [phone] | | | | | [phone] | | | +--------+---------+ + + + [...] + + + | Blood Pressure | 142/88 | 07/14/2012 11:55 AM | | | | | PDT | | + + + + + | Pulse | 104 | 07/14/2012 11:55 AM | | | | | PDT | | + + + + + | Temperature | 37.7 C (99.8 F) | 07/14/2012 11:55 AM | | | | | PDT | | + + + + + | Respiratory Rate | 16 | 07/14/2012 11:55 AM | | | | | PDT | | + + + + + | Oxygen Saturation | 100% | 07/14/2012 11:55 AM | | | | | PDT | | + + + + + | Inhaled Oxygen | - | - | | | Concentration | | | | + + + + + | Weight | 112.9 kg (249 lb) | 07/14/2012 11:55 AM | | | | | PDT | | + + + + + | Height | 177.8 cm (5' 10") | 07/14/2012 11:55 AM | | | | | PDT | | + + + + + | Body Mass Index | 35.73 | 07/14/2012 11:55 AM | | | | | PDT | | + + + + + documented in this encounter Patient Instructions Patient Instructions Renetta Falk MD - 07/14/2012 12:04 PM PDTFormatting of this not e might be different from the original. Scabies Scabies is an infection caused by mites that morgan into the skin. The mites, called Sarcop dina scabiei, are very tiny. They cause severe itching. Though children are most commonly inf ected, anyone can get scabies. Scabies mites can pass from person to person through close ph ysical contact. They can also be passed through shared clothing, towels, and bedding. Scabie s infection is not usually dangerous, but it is uncomfortable. Because it is so contagious, scabies should be treated immediately to keep the infection from spreading. Scabies bites are often found in body creases. Symptoms Symptoms of scabies appear about 4 6 weeks after infection in a child or adult who has ne raymond had scabies before. A child or adult who has been infected before will experience sympto ms much sooner, in 1 4 days. Signs of scabies infection may include: Intense itching, especially at night or after a hot bath. Skin irritations that look like hives, insect bites, pimples, or blisters, especially on warmer areas of the body (such as between the fingers, in the armpits, and in the creases o f the wrists, elbows, and knees). Sores on the body caused by scratching (the sores may become infected). Warm River created by mites traveling under the skin, which look like lines on the skin s surface. Treating Scabies Infection Scabies infections are usually treated with a lotion that kills the mites. The lotion must be applied to the entire body (including the palms of the hands, soles of the feet, groin, a nd under the fingernails). The lotion must be left on for several hours. In some cases, a se cond application of lotion is needed a week after the first. Medications work quickly, but m ost children and adults continue to have an itchy rash for several weeks after treatment. Ma rks on the skin from scabies usually go away in a week or two, but sometimes take a few chay hs to clear. Preventing Spread of the Infection To prevent reinfection and the spread of scabies to others, follow these instructions: Treat all household members who may have been exposed to scabies, whether they show symp toms or not. Wash the infected person s clothing, towels, bed linens, cloth toys, and other persona l items in very hot, soapy water. Dry them thoroughly. Seal items that can t be washed in plastic bags for 2 weeks. Vacuum floors and furniture. Throw the vacuum bag away afterward. Notify an infected child s school and caregivers so that other children can be checked and treated. Keep an infected child home from daycare or school until the morning after treatment for scabies. Warn children not to share items such as clothing and towels with other children. DO NOT spray your house with chemicals or pesticides. These can be dangerous to your fam misty s health. When to Call the Doctor Call your doctor if: The infected person has a fever, red streaks, pain, or swelling of the skin. Sores get worse or do not heal. New rashes appear or itching continues for more than 2 weeks after treatment. Skin is crusty or scaly. 4819-5200 [facility], [address] [place] [address], [place] [address]. All rights reserve d. This information is not intended as a substitute for professional medical care. Always fo llow your healthcare professional's instructions. documented in this encounter Progress Notes Renetta Falk MD - 07/14/2012 12:07 PM PDT Subjective: Patient ID: Junior Roque is a 52 y.o. male. HPI Patient is a 52-year-old male presents to clinic today for followup of scabies. He was see n 2 days ago in the emergency department and diagnosed with scabies. He was provided with a prescription cream which he has used, in addition to cleaning on his bed linens, placing th ings in plastic bags and having his carpet and household cleaned and tended to. He continue s to have increased itching and he has concerns and wonders if there is another treatment av ailable. He has noticed a few new red bumps on the arms. He was provided with a prescripti on for medication to help with the itching. He has no other complaints at this time. Past medical history, medications, allergies reviewed. Review of Systems As per HPI Objective: Physical Exam Vital signs as noted, nursing notes reviewed. Bkbmjxf-onmf-xgelkwhzs alert male in no apparent distress, pleasant cooperative. Skin-florentino ral scattered erythematous papules, some linear on the forearms, similar scabbed and abraded . There several lesions on the backs of the hands and around the wrists. Assessment: 1. Scabies Plan: Discussed etiology and treatment. I reassured patient that he may get it is for up to 2 we eks. If at 2 weeks he continues to see new lesions he should be retreated. Patient voices understanding and agreement. Written patient information provided. Patient Instructions Scabies Scabies is an infection caused by mites that morgan into the skin. The mites, called Sarcop dina scabiei, are very tiny. They cause severe itching. Though children are most commonly inf ected, anyone can get scabies. Scabies mites can pass from person to person through close ph ysical contact. They can also be passed through shared clothing, towels, and bedding. Scabie s infection is not usually dangerous, but it is uncomfortable. Because it is so contagious, scabies should be treated immediately to keep the infection from spreading. Scabies bites are often found in body creases. Symptoms Symptoms of scabies appear about 4 6 weeks after infection in a child or adult who has ne raymond had scabies before. A child or adult who has been infected before will experience sympto ms much sooner, in 1 4 days. Signs of scabies infection may include: Intense itching, especially at night or after a hot bath. Skin irritations that look like hives, insect bites, pimples, or blisters, especially on warmer areas of the body (such as between the fingers, in the armpits, and in the creases o f the wrists, elbows, and knees). Sores on the body caused by scratching (the sores may become infected). Warm River created by mites traveling under the skin, which look like lines on the skin s surface. Treating Scabies Infection Scabies infections are usually treated with a lotion that kills the mites. The lotion must be applied to the entire body (including the palms of the hands, soles of the feet, groin, a nd under the fingernails). The lotion must be left on for several hours. In some cases, a se cond application of lotion is needed a week after the first. Medications work quickly, but m ost children and adults continue to have an itchy rash for several weeks after treatment. Ma rks on the skin from scabies usually go away in a week or two, but sometimes take a few chay hs to clear. Preventing Spread of the Infection To prevent reinfection and the spread of scabies to others, follow these instructions: Treat all household members who may have been exposed to scabies, whether they show symp toms or not. Wash the infected person s clothing, towels, bed linens, cloth toys, and other persona l items in very hot, soapy water. Dry them thoroughly. Seal items that can t be washed in plastic bags for 2 weeks. Vacuum floors and furniture. Throw the vacuum bag away afterward. Notify an infected child s school and caregivers so that other children can be checked and treated. Keep an infected child home from daycare or school until the morning after treatment for scabies. Warn children not to share items such as clothing and towels with other children. DO NOT spray your house with chemicals or pesticides. These can be dangerous to your fam misty s health. When to Call the Doctor Call your doctor if: The infected person has a fever, red streaks, pain, or swelling of the skin. Sores get worse or do not heal. New rashes appear or itching continues for more than 2 weeks after treatment. Skin is crusty or scaly. [address], [place] [address]. All rights reserve d. This information is not intended as a substitute for professional medical care. Always fo llow your healthcare professional's instructions. documented in this encounter Plan of Treatment Not on filedocumented as of this encounter Visit Diagnoses + + | Diagnosis | + + | Scabies - Primary | + + documented in this encounter
--- OUTSIDE RECORDS SUMMARY | ~2019-03-29 | XMS | Encounter Summary ---
Demographics + + + | Address | [address] | | | [place] [address] | + + + | Home Phone | | + + + | Preferred Language | Unknown | + + + | Marital Status | Single | + + + | Mu-Ism Affiliation | Unknown | + + + | Race | White | + + + | Ethnic Group | Not or | + + + Author + + + | Author | [facility] | + + + | Organization | [facility] | + + + | Address | Unknown | + + + | Phone | Unavailable | + + + Support + + +---------+ + | Name | Relationship | Address | Phone | + + +---------+ + | None Per Pt | ECON | Unknown | Unavailable | + + +---------+ + Care Team Providers + +------+ + | Care Trick Rodeo Rider Name | Role | Phone | + [...] | | | Surgery Services at | [address] [place], | | | | | [address] | [place] [address] | | | | | Ave Mailcode: | [phone] | | | | | [facility] | | | | | | [facility] Healing, | | | | | | [address] | | | | | | [place], [place] | | | | | | [address] | | | | | | [phone] | | | +--------+ + + + [...]
--- OUTSIDE RECORDS SUMMARY | ~2019-03-29 | XMS | Encounter Summary ---
Demographics + + + | Address | [address] | | | [place] [address] | + + + | Home Phone [...] + + + | Author | [facility] | | | and [place] | + + + | Organization | [facility] | | [...] Team Providers + +------+ + | Care News Commentator Name | Role | Phone | + +------+ + PCP | Unavailable | + +------+ + Encounter Details +--------+ + + + + | Date | Type | Department | Care Team | Description | +--------+ + + + + | 08/06/ | Hospital | [facility] | | | | 2008 | Encounter | MED CTR EMERGENCY | | | | | | CENTER [address] | | | | | | [place] | | | | | | [address] | | | | | | [phone] | | | +--------+ + + + [...]
--- OUTSIDE RECORDS SUMMARY | ~2019-03-29 | XMS | Encounter Summary ---
Demographics + + + | Address | [address] | | | [place] [address] | + + + | Home Phone | | + + + | Preferred Language | Unknown | + + + | Marital Status | Single | + + + | Buddhism Affiliation | 1041 | + + + | Race | Unknown | + + + | Ethnic Group | Unknown | + + + Author + + + | Author | [facility] | | | and [place] | + + + | Organization | [facility] [...] Team Providers + +------+ + | Care Ski Lift Attendant Name | Role | Phone | + +------+ + PCP | Unavailable | + +------+ + Encounter Details +--------+ + + + + | Date | Type | Department | Care Team | Description | +--------+ + + + + | 08/20/ | Hospital | [facility] | | | | 2008 | Encounter | MED CTR EMERGENCY | | | | | | CENTER [address] | | | | | | [place] | | | | | | [address] | | | | | | [phone] | | | +--------+ + + + [...]
--- OUTSIDE RECORDS SUMMARY | ~2019-03-29 | XMS | Encounter Summary ---
Demographics + + + | Address | [address] | | | [place] [address] | + + + | Home Phone | | + + + | Preferred Language | Unknown | + + + | Marital Status | Single | + + + | Gnosticism Affiliation | 1041 | + + + | Race | Unknown | + + + | Ethnic Group | Unknown | + + + Author + + + | Author | [facility] | | | and [place]ay[place] | + + + | Organization | [facility] | | | and [place] [...] Team Providers + +------+ + | Care Campus Chaplain Name | Role | Phone | + +------+ + PCP | Unavailable | + +------+ + Encounter Details +--------+ + + + + | Date | Type | Department | Care Team | Description | +--------+ + + + + | 10/31/ | Hospital | [facility] | | | | 2005 | Encounter | MED CTR EMERGENCY | | | | | | CENTER [address] | | | | | | [place] | | | | | | [address] | | | | | | [phone] | | | +--------+ + + + [...]
--- OUTSIDE RECORDS SUMMARY | ~2019-03-29 | XMS | Encounter Summary ---
Demographics + + + | Address | [address] | | | [place] [address] | + + + | Home Phone [...] | Author | [facility] | | | and [place] | + + + | Organization | [facility] | | | and [place] [...] Team Providers + +------+ + | Care Automotive Parts Counter Person Name | Role | Phone | + +------+ + PCP | Unavailable | + +------+ + Encounter Details +--------+ + + + + | Date | Type | Department | Care Team | Description | +--------+ + + + + | 11/12/ | Hospital | [facility] | | | | 2008 | Encounter | MED CTR EMERGENCY | | | | | | CENTER [address] | | | | | | [place] | | | | | | [address] | | | | | | [phone] | | | +--------+ + + + [...]
--- OUTSIDE RECORDS SUMMARY | ~2019-03-29 | XMS | Encounter Summary ---
Demographics + + + | Address | [address] | | | [place] [address] | + + + | Home Phone [...] Author | [facility] | | | and [place] | + + + | Organization | [facility] | | | and [...] Team Providers + +------+ + | Care Payroll And Benefits Manager Name | Role | Phone | + +------+ + | Yovani Alonso MD | PCP | | + +------+ + Encounter Details +--------+ + + + + | Date | Type | Department | Care Team | Description | +--------+ + + + + | 01/12/ | [facility] | [facility] | Donell Coats, | Human | | 2013 | Encounter | MED CTR LABORATORY | Brent Cisneros MD | immunodeficiency | | | | [address] | [address] | virus (HIV) disease | | | | [place] | [place] [address] | (HCC) (Primary Dx) | | | | [address] | [phone] | | | | | [phone] | | | +--------+ + + + [...] [place] | | | | | | [address] | | | | + + + [...] [address] | [place] [address] | [phone] | + + + + + documented in this encounter Visit Diagnoses + + | Diagnosis | + + | Human immunodeficiency virus (HIV) disease (HCC) - Primary Human immunodeficiency | | virus [HIV] disease | + + documented in this encounter"
--- OUTSIDE RECORDS SUMMARY | ~2019-03-29 | XMS | Encounter Summary ---
Demographics + + + | Address | [address] | | | [place] [address] | + + + | Home Phone [...] + | Author | [facility] | | | and [place] | + + + | Organization | [facility] [...] Team Providers + +------+ + | Care Table Filler Name | Role | Phone | + +------+ + PCP | Unavailable | + +------+ + Encounter Details +--------+ + + + + | Date | Type | Department | Care Team | Description | +--------+ + + + + | 12/05/ | Hospital | [facility] | [place] | | | 2007 | Encounter | MED CTR EMERGENCY | Noel Tolliver MD [address] | | | | | CENTER [address] | [facility] | | | | | [place] | [place] [id number] | | | | | [address] | [phone] | | | | | [phone] | | | +--------+ + + + [...]
--- OUTSIDE RECORDS SUMMARY | ~2019-03-29 | XMS | Encounter Summary ---
Demographics + + + | Address | [address] | | | [place] [address] | + + + | Home Phone [...] + | Author | [facility] | | | and [place] | + + + | Organization | [facility] | [...] Team Providers + +------+ + | Care Horizontal Resaw Operator Name | Role | Phone | + +------+ + | Yovani Alonso MD | PCP | | + +------+ + Encounter Details +--------+ + + + + | Date | Type | Department | Care Team | Description | +--------+ + + + + | 07/10/ | Hospital | [facility] | Yovani Alonso MD | | | 2012 | Encounter | MED CTR LABORATORY | [address] [facility] | | | | | [address] | [place] | | | | | [place] | [address] | | | | | [address] | | | | | | [phone] | | | +--------+ + + + [...]
--- OUTSIDE RECORDS SUMMARY | ~2019-03-29 | XMS | Encounter Summary ---
Demographics + + + | Address | [address] | | | [place] [address] | + + + | Home Phone [...] | Author | [facility] | | | and [place] | + + + | Organization | [facility] | [...] Team Providers + +------+ + | Care Spring Intern Name | Role | Phone | + +------+ + PCP | Unavailable | + +------+ + Encounter Details +--------+ + + + + | Date | Type | Department | Care Team | Description | +--------+ + + + + | 11/07/ | Hospital | [facility] | | | | 2005 | Encounter | MED CTR EMERGENCY | | | | | | CENTER [address] | | | | | | [place] | | | | | | [address] | | | | | | [phone] | | | +--------+ + + + [...]
--- OUTSIDE RECORDS SUMMARY | ~2019-03-29 | XMS | Encounter Summary ---
Demographics + + + | Address | [address] | | | [place] [address] | + + + | Home Phone [...] Author | [facility] | | | and [place] | + + + | Organization | [facility] | | [...] Team Providers + +------+ + | Care Qa Auditor Name | Role | Phone | + +------+ + PCP | Unavailable | + +------+ + Encounter Details +--------+ + + + + | Date | Type | Department | Care Team | Description | +--------+ + + + + | 11/08/ | Hospital | [facility] | | | | 2006 | Encounter | MED CTR EMERGENCY | | | | | | CENTER [address] | | | | | | [place] | | | | | | [address] | | | | | | [phone] | | | +--------+ + + + [...]
--- OUTSIDE RECORDS SUMMARY | ~2019-03-29 | XMS | Encounter Summary ---
Demographics + + + | Address | [address] | | | [place] [address] | + + + | Home Phone [...] Author | [facility] | | | and [place] | + + + | Organization | [facility] | | | and [...] Team Providers + +------+ + | Care Guest Relations Coordinator Name | Role | Phone | + +------+ + | Yovani Alonso MD | PCP | | + +------+ + Encounter Details +--------+ + + + + | Date | Type | Department | Care Team | Description | +--------+ + + + + | 07/12/ | Hospital | [facility] | Jessica Dunn | | | 2012 | Encounter | MED CTR EMERGENCY | Caren Mejia MD [address] | | | | [place] [address] | [facility] | | | | | [place] | [place] [address] | | | | | [address] | [phone] | | | | | [phone] | [address] | | | | | | DO Khurram Smith | | | | | | [place], [place] | | | | | | [address] | | | | | | | [...] Performed At | + + + | [facility] | [place] | | Department [address] [facility] | [facility] | | [ rep [address]] [ rep [facility] | | st zip] Signed | - IMAGING | | | | | Patient Name: DWAINE ROQUE | | | Physician: NELLIE : 1960 Age: 52 Sex: M Unit | | | #: [id number] Exam Date: 07/12/12 Location: | | | ER Report #: [id number] Page: | | | %(RAD)RES..mtdd.print.filter("pg") of %(RAD) | | | RES..mtdd.print.filter("tpg") | | | | | | Accession Number: [id number] | | | CT ABDOMEN RENAL STONE [...] | | | Transcribed Date/Time: 07/13/2012 12:59 Cover Seamer: | | | <<Signature on File>> | | | Jw | | | Luiza Youssef MD07/13/12 1433 <Electronically signed by Jw Jarrett | | | Mikael MARIE> Jw Youssef MD 07/13/12 1001 | | | Cover Seamer: NuoDB [id number] [id number] | | | Jessica Dunn MD | | + + + + + + + + | Performing | Address | City/State/Zipcode | Phone Number | | Organization | | | | + + + + + | [facility] | [address] | [place] | [phone] | | [facility] | | [address] | | | - IMAGING | | [...] + | [facility] | [address] | [place] | [phone] | | [facility] | | [address] | | | - LABORATORY | | | | + + + + + | [facility] | [address] | [place] | | | [facility] | | [address] | | | - LABORATORY | | [...] + | [facility] | [address] | [place] | [phone] | | [facility] | | [address] | | | - LABORATORY | | | | + + + + + | [facility] | [address] | [place] | | | [facility] | | [address] | | | - LABORATORY | | [...] | [address] | | | [facility] | | | | | | MEDICAL [...] - 1.030 | [facility] | | | [place] | | | [facility] | | [...] + | [facility] | [address] | [place], [place] | [phone] | | [facility] | | [address] | | | - LABORATORY | | | | + + + + + | [facility] | [address] | [place], [place] | | | [facility] | | [address] | | | - LABORATORY | | | | + + + + + documented in this encounter Visit Diagnoses Not on filedocumented in this encounter
--- OUTSIDE RECORDS SUMMARY | ~2019-03-29 | XMS | Encounter Summary ---
Demographics + + + | Address | [address] | | | [place] [address] | + + + | Home Phone [...] | Author | [facility] | | | and Chayana | + + + | Organization | [facility] | | | and Chayana [...] Team Providers + +------+ + | Care Church Organist Name | Role | Phone | + +------+ + PCP | Unavailable | + +------+ + Encounter Details +--------+ + + + + | Date | Type | Department | Care Team | Description | +--------+ + + + + | 07/23/ | Hospital | [facility] | | | | 2005 | Encounter | MED CTR GENERIC OP | | | | | | CONV DEPT [address] | | | | | | [place], | | | | | | [place] [address] | | | | | | [phone] | | | +--------+ + + + [...]
--- OUTSIDE RECORDS SUMMARY | ~2019-03-29 | XMS | Encounter Summary ---
Demographics + + + | Address | [address] | | | [place] [address] | + + + | Home Phone [...] | Author | [facility] | | | and Chayana | + + + | Organization | [facility] [...] Team Providers + +------+ + | Care Meter Maintenance Person Name | Role | Phone | [...] [address] | | | | | [address] | [facility] [place] | | | | | [phone] | [address] | | | | | | | [...]
--- OUTSIDE RECORDS SUMMARY | ~2019-03-29 | XMS | Encounter Summary ---
Demographics + + + | Address | [address] | | | [place] [address] | + + + | Home Phone [...] + | Author | [facility] | | | and [place]ayana | + + + | Organization | [facility] | [...] Providers + +------+ + | Care Clinical Scientist Name | Role | Phone | + +------+ + PCP | Unavailable | + +------+ + Encounter Details +--------+ + + + + | Date | Type | Department | Care Team | Description | +--------+ + + + + | 05/01/ | Hospital | [facility] | Noel Burch | | | 2012 | Encounter | MED CTR EMERGENCY | Jarod Cheatham MD | | | | | CENTER [address] | [address] | | | | | [place] | [place] | | | | | [address] | [address] | | | | | [phone] | | | +--------+ + + + [...] 1 tablet every | | 0 | 09/13/20 | | | | 6 hours. | [...] XR CHEST AP PORTABLE | Routin | 05/02/2012 | | Results for this | | | e | 8:29 AM | | procedure are in the | | | | PST | | results section. | + +--------+ + + + | CT CHEST W CONTRAST | Routin | 05/02/2012 | | Results for this | | | e | 8:26 AM | | procedure are in the | | | | PST | | results section. | + +--------+ + + + | TROPONIN I | Routin | 05/01/2012 | | Results for this | | | e | 6:54 PM | | procedure are in the | | | | PST | | results section. | + +--------+ + + + | CBC WITH | Routin | 05/01/2012 | | Results for this | | DIFFERENTIAL | e | 6:54 PM | | procedure are in the | | | | PST | | results section. | + +--------+ + + + | INFLUENZA A AND B | Routin | 05/01/2012 | | Results for this | | [place], [place] | e | 6:54 PM | | procedure are in the | | | | PST | | results section. | + +--------+ + + + | B TYPE NATRIURETIC | Routin | 05/01/2012 | | Results for this | | PEPTIDE | e | 6:54 PM | | procedure are in the | | | | PST | | results section. | + +--------+ + + + | LIPASE | Routin | 05/01/2012 | | Results for this | | | e | 6:54 PM | | procedure are in the | | | | PST | | results section. | + +--------+ + + + | COMPREHENSIVE | Routin | 05/01/2012 | | Results for this | | METABOLIC PANEL | e | 6:54 PM | | procedure are in the | | | | PST | | results section. | + +--------+ + + + documented in this encounter Results XR Chest AP Portable (05/02/2012 8:29 AM PST) + + | Specimen | + + | | + + + + + | Narrative | Performed At | + + + | [facility] | [place] | | Department [address] [place] [address] | [facility] | | [ rep [address]] [ rep [facility] | | st zip] Signed | - IMAGING | | | | | Patient Name: DWAINE VEGA | | | Physician: LENA : 1960 Age: 51 Sex: M Unit | | | #: [id number] Exam Date: 05/01/12 Location: | | | ER Report #: [id number] Page: | | | %(RAD)RES..mtdd.print.filter("pg") of %(RAD) | | | RES..mtdd.print.filter("tpg") | | | | | | Accession Number: [id number] | | | PORTABLE CHEST X-RAY CLINICAL HISTORY: COUGH, FEVER, | | | SHORTNESS OF BREATH. COMPARISON: 10/06/2009 | | | FINDINGS: Heart size and mediastinal contours are within normal | | | limits. There are low lung volumes. There is no focal | | | consolidation to suggest pneumonia. No pleural effusion or | | | pneumothorax is seen. No acute osseous or soft tissue abnormality | | | is evident. IMPRESSION: LOW LUNG VOLUMES. NO FOCAL | | | CONSOLIDATION TO SUGGEST PNEUMONIA. Dictated Date/Time: | | | 05/02/2012 08:29 Transcribed Date/Time: 05/02/2012 08:34 | | | Receivable Clerk: <<Signature on File>> | | | | | | Man Maldonado MD05/02/12 1026 <Electronically signed by Man | | Ted Maldonado MD> Man Maldonado MD 05/02/1229 | | | Receivable Clerk: Avis Fernandez05/02/12 0834 | | | | | + + + + + + + + | Performing | Address | City/State/Zipcode | Phone Number | | Organization | | | | + + + + + | [facility] | [address] | [place] | [phone] | | [facility] | | [address] | | | - IMAGING | | | | + + + + + CT Chest w Contrast (05/02/2012 8:26 AM PST) + + | Specimen | + + | | + + + + + | Narrative | Performed At | + + + | [facility] | [place] | | Department [address] [facility] | [facility] | | [ rep ct [address]] [ rep [facility] | | [facility]] Signed | - IMAGING | | | | | Patient Name: DWAINE VEGA Kp | | | Physician: LENA : 1960 Age: 51 Sex: M Unit | | | #: [id number] Exam Date: 05/01/12 Location: | | | ER Report #: [id number] Page: | | | %(RAD)RES..mtdd.print.filter("pg") of %(RAD) | | | RES..mtdd.print.filter("tpg") | | | | | | Accession Number: [id number] | | | CT CHEST WITH CONTRAST [PULMONARY CT ANGIOGRAM] CLINICAL | | | HISTORY: COUGH, FEVER AND SHORTNESS OF BREATH. TECHNIQUE: | | | Axial images are obtained from thoracic inlet to upper abdomen | | | during the uneventful administration of 72 mL of Isovue 370. | | | Scanning is timed to pulmonary artery phase of enhancement. | | | COMPARISON: October 2005. FINDINGS: The pulmonary | | | artery is well opacified and has normal caliber. There are no | | | filling defects or vessel cut off to indicate the presence of | | | pulmonary emboli. Aorta is not opacified but shows a normal | | | appearance for technique. No pathologic sized mediastinal or hilar | | | adenopathy is present. There is mild breath motion artifact | | | involving both lungs. No areas of air space consolidation or | | | effusion are present. In the right costophrenic sulcus [image 82, | | | series 6] a shaggy nodule measuring approximately 9 mm in size is | | | seen. This was not present on prior examinations. There are no | | | other areas of significant pulmonary nodularity or mass. In | | | the limited portions of abdomen included on this exam, post | | | cholecystectomy changes are noted. No other upper abdominal | | | abnormalities are present. There are no bony or body wall | | | abnormalities. IMPRESSION: 1. NO CT FEATURES OF | | | PULMONARY EMBOLIC DISEASE. 2. A 9 MM NODULE IN THE RIGHT | | | COSTOPHRENIC SULCUS REGION. CLOSE INTERVAL FOLLOWUP FOR THIS REGION | | | WOULD BE RECOMMENDED, WITH REPEAT SCANNING IN 3 MONTHS (SHASTANER | | | CRITERIA). Dictated Date/Time: 05/02/2012 08:26 | | | Transcribed Date/Time: 05/02/2012 08:33 Receivable Clerk: | | | MRMELISSA <<Signature on File>> | | | | | | Aba Gill MD05/02/12 1149 <Electronically signed by | | | Aba Gill MD> Aba Gill MD 05/02/12 | | | 0826 Receivable Clerk: [employer]23/08/13 0833 | | | | | + + + + + + + + | Performing | Address | City/State/Zipcode | Phone Number | | Organization | | | | + + + + + | [facility] | [address] | [place] | [phone] | | [facility] | | [address] | | | - IMAGING | | | | + + + + + CBC with Differential (05/01/2012 6:54 PM PST) + + + + + [...] + + + + | WBC | 13.2 (H) | 4.0 - 11.0 K/uL | [facility] | | | | | | [facility] | | | | | | [facility]ICAL | | | | | | CENTER - | | | | | | LABORATORY | | + + + + + + | RBC | 4.09 (L) | 4.30 - 5.70 | [facility] | | | | | M/uL | [facility] | | | | | | MEDICAL | | | | | | CENTER - | | | | | | LABORATORY | | + + + + + + | Hemoglobin | 13.2 (L) | 13.5 - 18.0 | [facility] | | | | | gm/dL | [facility] | | | | | | MEDICAL | | | | | | CENTER - | | | | | | LABORATORY | | + + + + + + | Hematocrit | 40.2 | 40.0 - 51.0 % | [facility] | | | | | | [facility] | | | | | | MEDICAL | | | | | | CENTER - | | | | | | LABORATORY | | + + + + + + | MCV | 98.1 | 83.0 - 101.0 fL | [facility] | | | | | | [facility] | | | | | | MEDICAL | | | | | | CENTER - | | | | | | LABORATORY | | + + + + + + | MCH | 32.3 | 28.0 - 35.0 pg | [facility] [...] + + + + | Platelet | 191 | 140 - 440 K/uL | [facility] | | | Count | | | [facility] | | | | | | MEDICAL | | | | | | CENTER - | | | | | | LABORATORY | | + + + + + + | % | 79.0 (H)Comment: <10% | 45 - 75 % | [facility] | | | Neutrophils | BANDS SEEN --- | | [facility] | | | | 05/01/121945 --- | | MEDICAL | | | | Neutrophils % | | CENTER - | | | | previously reported as: | | LABORATORY | | | | 79.0 H % @ | | | | | | Edited by: Fabby Acevedo | | | | | | @ Reason: ADDED | | | | | | COMMENT | | | | + + + + + + | % | 10.1 (L) | 20 - 45 % | [facility] | | | Lymphocytes | | | [facility] | | | | | | MEDICAL | | | | | | CENTER - | | | | | | LABORATORY | | + + + + + + | % Monocytes | 8.7 | 4 - 12 % | [facility] | | | | | | [facility] | | | | | | MEDICAL | | | | | | CENTER - | | | | | | LABORATORY | | + + + + + + | % | 0.6 | 0 - 5 % | [facility] | | | Eosinophils | | | [facility] | | | | | | MEDICAL | | | | | | CENTER - | | | | | | LABORATORY | | + + + + + + | % Basophils | 1.6 (H) | 0 - 1 % | [facility] | | | | | | [facility] | | | | | | MEDICAL | | | | | | CENTER - | | | | | | LABORATORY | | + + + + + + | Absolute | 10.4 (H) | 1.5 - 6.6 K/uL | [facility] | | | Neutrophils | | | [facility] | | | | | | MEDICAL | | | | | | CENTER - | | | | | | LABORATORY | | + + + + + + | Absolute | 1.3 | 0.6 - 3.2 K/uL | [facility] | | | Lymphocytes | | | [facility] | | | | | | MEDICAL | | | | | | CENTER - | | | | | | LABORATORY | | + + + + + + | Absolute | 1.1 [...] + + + + | Absolute | 0.2 (H) | 0.0 - 0.1 K/uL | [facility] | | | Basophils | | | [facility] | | | | | | MEDICAL | | | | | | CENTER - | | | | | | LABORATORY | | + + + + + + | SUSPECTED | 1 (H) | | [facility] | | | PROBLEM IS: | Comment: | | [facility] | | | | Left Shift | | MEDICAL | | | | Imm Grans | | CENTER - | | | | | | LABORATORY | | + + + + + + + + | Specimen | + + | | + + + + + + + | Performing | Address | City/State/Zipcode | Phone Number | | Organization | | | | + + + + + | [facility] | [address] | [place] | [phone] | | [facility] | | [address] | | | - LABORATORY | | | | + + + + + | [facility] | [address] | [place] | | | [facility] | | [address] | | | - LABORATORY | | | | + + + + + Influenza A and B Ag, EIA (05/01/2012 6:54 PM PST) + + + + + + | Component | Value | Ref Range | Performed | Pathologist | | | | | At | Signature | + + + + + + | INFLUENZA | Presumptive | | [facility] | | | AB | NEGATIVEComment: | | [facility] | | | | Presumptive NEGATIVE for | | MEDICAL | | | | Influenza A and | | CENTER - | | | | Influenza B. | | LABORATORY | | | | INTERPRETATION: | | | | | | NEGATIVE: Negative | | | | | | tests can occur from | | | | | | inadequate sample | | | | | | collection or levels | | | | | | of antigen which fall | | | | | | below the limits of | | | | | | detection of the test. | | | | | | POSITIVE: A positive | | | | | | result may occur in the | | | | | | absence of viable | | | | | | virus. @INTERNAL QC | | | | | | OK?: PINK CONTROL LINE | | | | | | APPEARS? YES | | | | + + + + + + + + | Specimen | + + | | + + + + + + + | Performing | Address | City/State/Zipcode | Phone Number | | Organization | | | | + + + + + | [facility] | [address] | [place] | [phone] | | [facility] | | [address] | | | - LABORATORY | | | | + + + + + | [facility] | [address] | [place] | | | [facility] | | [address] | | | - LABORATORY | | | | + + + + + Comprehensive Metabolic Panel (05/01/2012 6:54 PM PST) + + + + + + | Component | Value | Ref Range | Performed | Pathologist | | | | | At | Signature | + + + + + + | Glucose | 156 (H) | 70 - 109 mg/dL | [facility] | | | | | | [facility] | | | | | | MEDICAL | | | | | | CENTER - | | | | | | LABORATORY | | + + + + + + | Calcium | 8.3 | 8.3 - 10.5 | [facility] | | | | | mg/dL | [facility] | | | | | | MEDICAL | | | | | | CENTER - | | | | | | LABORATORY | | + + + + + + | Alkaline | 76 | 40 - 110 IU/L | [facility] | | | Phosphatase | | | [facility] | | | | | | MEDICAL | | | | | | CENTER - | | | | | | LABORATORY | | + + + + + + | AST | 24 | 10 - 42 IU/L | [facility] | | | | | | [facility] | | | | | | MEDICAL | | | | | | CENTER - | | | | | | LABORATORY | | + + + + + + | ALT | 42 | 6 - 45 IU/L | [facility] | | | | | | [facility] | | | | | | MEDICAL | | | | | | CENTER - | | | | | | LABORATORY | | + + + + + + | Bilirubin | 0.5 | 0.2 - 1.0 mg/dL | [facility] | | | Total | | | [facility] | | | | | | MEDICAL | | | | | | CENTER - | | | | | | LABORATORY | | + + + + + + | Total | 4.9 (L) | 6.0 - 7.8 gm/dL | [facility] | | | Protein | | | [facility] | | | | | | MEDICAL | | | | | | CENTER - | | | | | | LABORATORY | | + + + + + + | Albumin | 2.9 (L) | 3.2 - 5.0 gm/dL | [facility] | | | | | | [facility] | | | | | | MEDICAL | | | | | | CENTER - | | | | | | LABORATORY | | + + + + + + | BUN | 33 (H) | 7 - 18 mg/dL | [facility] | | | | | | [facility] | | | | | | MEDICAL | | | | | | CENTER - | | | | | | LABORATORY | | + + + + + + | Creatinine | 0.92 | 0.60 - 1.30 | [facility] | | | | | mg/dL | [facility] | | | | | | MEDICAL | | | | | | CENTER - | | | | | | LABORATORY | | + + + + + + | Estimated | >60Comment: For | >60 mL/min/A | [facility] | | | GFR | -Americans, | [...] + + + + | BUN/Creatin | 35.9 (H) | 12 - 20 | [facility] | | | ine Ratio | | | [facility] | | | | | | MEDICAL | | | | | | CENTER - | | | | | | LABORATORY | | + + + + + + | Na | 138 | 136 - 149 mEq/L | [facility] | | | | | | [facility] | | | | | | MEDICAL | | | | | | CENTER - | | | | | | LABORATORY | | + + + + + + | K | 4.2 | 3.5 - 5.1 mEq/l | [facility] | | | | | | [facility] | | | | | | MEDICAL | | | | | | CENTER - | | | | | | LABORATORY | | + + + + + + | Cl | 104 | 98 - 109 mEq/l | [facility] | | | | | | [facility] | | | | | | MEDICAL | | | | | | CENTER - | | | | | | LABORATORY | | + + + + + + | CO2 | 24 | 24 - 31 mEq/L | [facility] | | | | | | [facility] | | | | | | MEDICAL | | | | | | CENTER - | | | | | | LABORATORY | | + + + + + + | Anion Gap | 14.2 | 6.0 - 17.0 | [facility] | [...] + | [facility] | [address] | [place], [place] | [phone] | | [facility] | | [address] | | | - LABORATORY | | | | + + + + + | [facility] | [address] | [place], [place] | | | [facility] | | [address] | | | - LABORATORY | | | | + + + + + Troponin I (05/01/2012 6:54 PM PST) + + + + + + | Component | Value | Ref Range | Performed | Pathologist | | | | | At | Signature | + + + + + + | Troponin I | 0.04Comment: Reference | <0.06 ng/mL | [facility] | [...] The | | | | | | [employer] | | | | | [...] | [address] | [place] | [phone] | | [facility] | | [address] | | | - LABORATORY | | | | + + + + + | [facility] | [address] | [place] | | | [facility] | | [address] | | | - LABORATORY | | | | + + + + + Lipase (05/01/2012 6:54 PM PST) + +-------+ + + + | Component | Value | Ref Range | Performed | Pathologist | | | | | At | Signature | + +-------+ + + + | Lipase | 60 | 0 - 60 U/L | [facility] | | | | | | [facility] | | | | | | MEDICAL [...] + | [facility] | [address] | [place] | [phone] | | [facility] | | [address] | | | - LABORATORY | | | | + + + + + | [facility] | [address] | [place] | | | [facility] | | [address] | | | - LABORATORY | | | | + + + + + B Type Natriuretic Peptide (05/01/2012 6:54 PM PST) + + + + + + | Component | Value | Ref Range | Performed | Pathologist | | | | | At | Signature | + + + + + + | BNP | 31Comment: Testing | <100 pg/mL | [facility] | | | | performed on the [facility] | | [facility] | | | | [facility] | | MEDICAL | | | [...] | [address] | [place] | [phone] | | [facility] | | [address] | | | - LABORATORY | | | | + + + + + | [facility] | [address] | [place] | | | [facility] | | [address] | | | - LABORATORY | | | | + + + + + documented in this encounter Visit Diagnoses Not on filedocumented in this encounter
--- OUTSIDE RECORDS SUMMARY | ~2019-03-29 | XMS | Clinical Summary ---
Demographics + + + | Address | [address] | | | [place] [address] | + + + | Home Phone | | + + + | Preferred Language | Unknown | + + + | Marital Status | Single | + + + | Yazidism Affiliation | Unknown | + + + | Race | White | + + + | Ethnic Group | Not or | + + + Author + + + | Author | [facility] | + + + | Organization | [facility] | + + + | Address | Unknown | + + + | Phone | Unavailable | + + + Support + + +---------+ + | Name | Relationship | Address | Phone | + + +---------+ + | None Per Pt | ECON | Unknown | Unavailable | + + +---------+ + Care Team Providers + +------+ + | Care Evidence Specialist Name | Role | Phone | + +------+ + | Yovani Alonso MD | PCP | | + +------+ + Source Comments ELLE is fully live on both [facility] Ambulatory and [facility] InPatient.[facility] Allergies + + + + + + | Active Allergy | Reactions | Severity | Noted | Comments | | | | | Date | | + + + + + + | Penicillins | Rash | Low | /3020 | UNKNOWN | | | | | 13 | [...] +---------+------+------+-------+ | | | | 0 | 04/1 | | Activ | | emtricitabine-tenofo | | | | 9/20 | | e | | vir df (HAMLET) | | | | 13 | | | | 200-300 mg oral | | | | | | | | tablet | | | | | | | + + + +---------+------+------+-------+ | pravastatin 80 mg | Take 80 mg by mouth | | 0 | 10/2 | | Activ | | oral tablet | once daily at | | | 4/20 | | e | | | bedtime. | | | 19 | | | + + + +---------+------+------+-------+ | lisinopril 40 mg | Take 40 mg by mouth | | 0 | | | Activ | | oral tablet | once daily. | | | | | e | + + + +---------+------+------+-------+ | atenolol 100 mg | Take 100 mg by mouth | | 0 | | | Activ | | oral tablet | two times daily. | | | | | e | + + + +---------+------+------+-------+ | gabapentin 600 mg | Take 600 mg by mouth | | 0 | 11/0 | | Activ | | oral tablet | three times daily. | | | 04/13 | | e | | | | | | 19 | | | + + + +---------+------+------+-------+ | furosemide 40 mg | Take 40 mg by mouth | | 0 | 09/2 | | Activ | | oral tablet | two times daily. | | | 10/11 | | e | | | | | | 19 | | | + + + +---------+------+------+-------+ | amLODIPine 5 mg | Take 5 mg by mouth | | 0 | 10/1 | | Activ | | oral tablet | once daily. | | | 10/11 | | e | | | | | | 19 | | | + + + +---------+------+------+-------+ | fluticasone | Instill 2 sprays | | 1 | 11/1 | | Activ | | propionate 50 | into each nostril | | | 6/20 | | e | | mcg/actuation nasal | once daily. | | | 19 | | | | spray,suspension | | | | | | | + + + +---------+------+------+-------+ | ibuprofen 600 mg | take 1 tablet by | | 0 | 11/1 | | Activ | | oral tablet | mouth every 6 hours | | | 4/20 | | e | | | if needed for | | | 19 | | | | | MODERATE PAIN | | | | | | + + + +---------+------+------+-------+ | VENTOLIN HFA 90 | Inhale 2 puffs by | | 1 | 11/1 | | Activ | | mcg/actuation | mouth every six | | | 2/20 | | e | | inhalation HFA | hours as needed. 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 | + + + + + | Cancer Staging: Clinical stage from 02/22/2019: Stage I (cT2, | | cN1, cM0, p16+) - Signed by Sunil Shaw MD on 02/22/2019 | + + Encounters +--------+ + + + + | Date | Type | Specialty | Care Team | Description | +--------+ + + + + | 02/24/ | Documentati | Otolaryngology | Sunil Shaw MD | | | 2018 | on | | | | +--------+ + + + + | 02/17/ | Office | Otolaryngology | Sunil Shaw MD | Tonsil cancer (HCC) | | 2019 | Visit | | | (Primary Dx) | +--------+ + + + + | 02/17/ | Travel | | | | | 2019 | | | | | +--------+ + + + + from Last 3 Months Family History + + +------+ + | Medical History | Relation | Name | Comments | + + +------+ + | Cancer | Father | | no head and neck cancers | + + +------+ + | Cancer | Mother | | no head and neck cancers | + + +------+ + + +------+--------+ + | Relation | Name | Status | Comments | + +------+--------+ + | Father | | | | + +------+--------+ + | Mother | | | | + +------+--------+ + Social History + + + +--------+ [...] | + + + + + | Pneumococcal | | 09/11/2011, 08/03/2005 | | | vaccination (3 of 3 | 3 | | | | - PCV13) | | | | + + + + + | Influenza (Flu) | | 12/27/2017, 12/25/2016, | | | vaccination (#1) | 9 | 01/12/2014, Additional history | | | | | exists | | + + + + + Procedures + +--------+ + + + | Procedure Name | Priori | Date/Time | Associated Diagnosis | Comments | | | ty | | | | + +--------+ + + + | AL | Routin | 02/22/2019 | Tonsil cancer | | | LARYNGOSCOPY,FLEXIBL | e | 8:36 PM | ([facility]) | | | E, DIAGNOSTIC | | PST | | | + +--------+ + + + from Last 3 Months Results Not on filefrom Last 3 Months Insurance + +--------+ +--------+ + +--------+ | Payer | Benefi | Subscriber | Effect | Phone | Address | Type | | | t Plan | ID | eamon | | | | | | / | | Dates | | | | | | Group | | | | | | + +--------+ +--------+ + +--------+ | MEDICARE | MEDICA | xxxxxxxxxxx | 10/24/19 | [phone] | [address] | | | RE A & | | 10-Pre | 1 | [phone] | re | | | B | | sent | | [place], [place] | | | | | | | | [id number] | | + +--------+ +--------+ + +--------+ | ANIMAL NURSERY WORKER MEDICAID | ANIMAL NURSERY WORKER | xxxxxxxx | 03/25/19 | | | [employer]ica | | | [place] | | 19-Pre | | | id | | | [place] | | sent | | | | + +--------+ +--------+ + +--------+ + +--------+ +--------+ + + | Guarantor Name | Accoun | Relation to | Date | Phone | Billing Address | | | t Type | Patient | of | | | | | | | | | | + +--------+ +--------+ + + | Junior Roque | Person | Self [birth year] | [address] | | | al/[place] | | 1961 | [phone] | [place] [id number] | | | misty | | | 5 (Home) | | + +--------+ +--------+ + +"
--- OUTSIDE RECORDS SUMMARY | ~2019-03-29 | XMS | Encounter Summary ---
Demographics + + + | Address | [address] | | | [place] [address] | + + + | Home Phone | | + + + | Preferred Language | Unknown | + + + | Marital Status | Single | + + + | Yazidism Affiliation | 1041 | + + + | Race | Unknown | + + + | Ethnic Group | Unknown | + + + Author + + + | Author | [facility] | | | and [place] | + + + | Organization | [facility] | | | and [...] Team Providers + +------+ + | Care Postal Inspector Name | Role | Phone | + +------+ + | Yovani Alonso MD | PCP | | + +------+ + Encounter Details +--------+ + + + + | Date | Type | Department | Care Team | Description | +--------+ + + + + | 02/15/ | Hospital | [facility] | [place], | | | 2012 - | Encounter | MED CTR MEDICAL | Noel Tolliver MD [address] | | | | | [address] [place] | [address] [place] | | | 02/16/ | | [place] [address] | [place] [address] | | | 2012 | | [phone] | [phone] | | | | | | | [...] Not, In System - 02/16/2013 8:12 [place] [address] Patient Name: DWAINE VEGA Provider: Jose Luis Boss MD Unit #: [id number] Location : [facility] : 1960 ADMISSION DATE: 02/15/2013 DISCHARGE [...] Jose Luis Boss MD Hospitalist JOB #: [id number] EXT JOB #:[id number] <<Signature on File>> Caren Adamson D104/18/12 5584 < documented in this encounter Medications at [...] At | + + + | [facility] Diagnostic Imaging | [place] | | Department [address] [facility] | [facility] | | [ rep ct street[address]] [ rep [facility] | | [facility]] Signed | - IMAGING | | | | | Patient Name: DWAINE VEGA | | | Physician: EMELINA : 1960 Age: 52 Sex: M Unit | | | #: [id number] Exam Date: 02/15/13 Location: | | | [facility] 428- Report #: [id number] Page: | | | %(RAD)RES..mtdd.print.filter("pg") of %(RAD) | | | RES..mtdd.print.filter("tpg") | | | | | | Accession Number: [id number] | | | PORTABLE CHEST CLINICAL HISTORY: [...] | | | Transcribed Date/Time: 02/16/2013 11:12 Enterprise Business Architect: | | | <<Signature on File>> | | | Jw | | | Luiza Youssef MD02/16/132054 <Electronically signed by Jw Jarrett | | | Mikael MARIE> Jw Youssef MD 11/25/13 1013 | | | Enterprise Business Architect: Avis Uuzjaixcvfjyd62/25/13 1112 | | | | | + + + + + + + + | Performing | Address | City/State/Zipcode | Phone Number | | Organization | | | | + + + + + | [facility] | [address] | [place] | [phone] | | [facility] | | [address] | | | - IMAGING | | [...] + | [facility] | [address] | [place] | [phone] | | [facility] | | [address] | | | - LABORATORY | | | | + + + + + | [facility] | [address] | [place] | | | [facility] | | [address] | | | - LABORATORY | | [...] MELODY | | | | | | [facility] | | | | [...] 11 | 7 - 18 mg/dL | [facility] | | | | | | [facility] | | | | | | MEDICAL | | | | | | CENTER - | | | | | | LABORATORY | | + + + + + + | Creatinine | 0.77 | 0.60 - 1.30 | [facility] | | | | | mg/dL | [...] + | [facility] | [address] | [place], [place] | [phone] | | [facility] | | [address] | | | - LABORATORY | | | | + + + + + | [facility] | [address] | [place], [place] | | | [facility] | | [address] | | | - LABORATORY | | [...] | [facility] | | | | [facility] | | MEDICAL | | | [...] + | [facility] | [address] | [place] | [phone] | | [facility] | | [address] | | | - LABORATORY | | | | + + + + + | [facility] | [address] | [place] | | | [facility] | | [address] | | | - LABORATORY | | [...] - 1.030 | [facility] | | | [place] | | | [facility] | | [...] + | [facility] | [address] | [place], [place] | [phone] | | [facility] | | [address] | | | - LABORATORY | | | | + + + + + | [facility] | [address] | [place], [place] | | | [facility] | | [address] | | | - LABORATORY | | [...] | | Basophils | | | [facility] | | | | [...] + | [facility] | [address] | [place] | [phone] | | [facility] | | [address] | | | - LABORATORY | | | | + + + + + | [facility] | [address] | [place] | | | [facility] | | [address] | | | - LABORATORY | | [...] [facility] | | | | | | [facility] | | | | [...] | >60Comment: For | >60 mL/min/A | [facility] | | | GFR | -Americans, | | [facility] | | | | please multiply the [...] + | [facility] | [address] | [place] | [phone] | | [facility] | | [address] | | | - LABORATORY | | | | + + + + + | [facility] | [address] | [place] | | | [facility] | | [address] | | | - LABORATORY | | [...] The | | | | | | [employer] | | | | | [...] + | [facility] | [address] | [place] | [phone] | | [facility] | | [address] | | | - LABORATORY | | | | + + + + + | [facility] | [address] | [place] | | | [facility] | | [address] | | | - LABORATORY | | [...] + | [facility] | [address] | [place] | [phone] | | [facility] | | [address] | | | - LABORATORY | | | | + + + + + | [facility] | [address] | [place] | | | [facility] | | [address] | | | - LABORATORY | | | | + + + + + documented in this encounter Visit Diagnoses Not on filedocumented in this encounter
--- OUTSIDE RECORDS SUMMARY | ~2019-03-29 | XMS | Encounter Summary ---
Demographics + + + | Address | [address] | | | [place] [address] | + + + | Home Phone [...] Author | [facility] | | | and [place] | + + + | Organization | [facility] | | | and [place] [...] Providers + +------+ + | Care Business Machine Operator Name | Role | Phone [...] | | | | | Contrast | [address] | | | | | | | Phone: | | | | | | | [phone] | | | | | | | Fax: | | | | | | | [phone] | | +--------+--------+ + + + + Encounter Details +--------+ + + + + | Date | Type | Department | Care Team | Description | +--------+ + + + + | 11/13/ | Hospital | [facility] | Donell Coats, | Nausea with vomiting | | 2013 | Encounter | MED CTR [address] | Brent Cisneros MD | | | | | [place], | [address] | | | | | [place] [address] | [place] [address] | | | | | [phone] | [phone] | | | | | | | | | | | | Brent Metz | | | | | | [place]ay[place] | | | | | | Jw Youssef MD | | | | | | [address] | | | | | | [place] | | | | | | [address] | | | | | | [phone] | | | | | | | [...] | | | |Dictated and Signed by: wJ Youssef MD | | Electronically signed: 11/13/2013 [...]
--- OUTSIDE RECORDS SUMMARY | ~2019-03-29 | XMS | Encounter Summary ---
Demographics + + + | Address | [address] | | | [place] [address] | + + + | Home Phone | | + + + | Preferred Language | Unknown | + + + | Marital Status | Single | + + + | Nondenominational Affiliation | 1041 | + + + | Race | Unknown | + + + | Ethnic Group | Unknown | + + + Author + + + | Author | [facility] | | | and [place] | + + + | Organization | [facility] | | | and [...] Team Providers + +------+ + | Care Grip Wrapper Name | Role | Phone | + +------+ + PCP | Unavailable | + +------+ + Encounter Details +--------+ + + + + | Date | Type | Department | Care Team | Description | +--------+ + + + + | 07/07/ | Hospital | [facility] | | | | 2007 | Encounter | MED CTR EMERGENCY | | | | | | CENTER [address] | | | | | | [place] | | | | | | [address] | | | | | | [phone] | | | +--------+ + + + [...]
--- OUTSIDE RECORDS SUMMARY | ~2019-03-29 | XMS | Encounter Summary ---
Demographics + + + | Address | [address] | | | [place] [address] | + + + | Home Phone [...] Author | [facility] | | | and [place] | + + + | Organization | [facility] | | | and [...] Team Providers + +------+ + | Care Plugging Machine Operator Name | Role | Phone [...] 2012 | | GASTROENTEROLOGY | [address], [place] | | | | | [address] [place] | [address] [place] | | | | | [address] [place], [place] | [address] | | | | | [address] | | | | | | [phone] | | | +--------+ + + + [...]
--- OUTSIDE RECORDS SUMMARY | ~2019-03-29 | XMS | Encounter Summary ---
Demographics + + + | Address | [address] | | | [place] [address] | + + + | Home Phone | | + + + | Preferred Language | Unknown | + + + | Marital Status | Single | + + + | Confucianism Affiliation | 1041 | + + + | Race | Unknown | + + + | Ethnic Group | Unknown | + + + Author + + + | Author | [facility] | | | and [place] | + + + | Organization | [facility] | | | and [...] Team Providers + +------+ + | Care Broom Builder Name | Role | Phone | + +------+ + | Yovani Alonso MD | PCP | | + +------+ + Encounter Details +--------+---------+ + + + | Date | Type | Department | Care Team | Description | +--------+---------+ + + + | 06/02/ | Office | [facility] [place] | Ubaldo Xie | JAG (obstructive | | 2015 | Visit | SLEEP DISORDER [address] | MD Lucas [address] | sleep apnea) | | | | [address] [place] | [address] [place] | (Primary Dx) | | | | [place] [address] | [place] [address] | | | | | [phone] | [phone] | | | | | | | [...] Progress Notes Ubaldo Xie Jr., MD - 06/02/2014 11:55 AM PDTThe patient was a NO ShowElectronically s igned by Ubaldo Xie Jr., MD at 06/02/2014 11:56 AM PDTdocumented in this encounter Plan of Treatment Not on filedocumented as of this encounter Visit Diagnoses + + | Diagnosis | + + | JAG (obstructive sleep apnea) - Primary Obstructive sleep apnea (adult) (pediatric) | + + documented in this encounter"
--- OUTSIDE RECORDS SUMMARY | ~2019-03-29 | XMS | Encounter Summary ---
Demographics + + + | Address | [address] | | | [place] [address] | + + + | Home Phone [...] + | Author | [facility] | | | and [place] | + + + | Organization | [facility] | | [...] Team Providers + +------+ + | Care Public Information Specialist Name | Role | Phone | + +------+ + PCP | Unavailable | + +------+ + Encounter Details +--------+ + + + + | Date | Type | Department | Care Team | Description | +--------+ + + + + | 06/29/ | Hospital | [facility] | | | | 2005 - | Encounter | MED CTR MED ONC | | | | | | [address] [place] | | | | 07/18/ | | [place] [address] | | | | 2005 | | [phone] | | | +--------+ + + + [...]
--- OUTSIDE RECORDS SUMMARY | ~2019-03-29 | XMS | Encounter Summary ---
Demographics + + + | Address | [address] | | | [place] [address] | + + + | Home Phone [...] Author | [facility] | | | and [place] | + + + | Organization | [facility] | | [...] Team Providers + +------+ + | Care Resource Teacher Name | Role | Phone | + +------+ + PCP | Unavailable | + +------+ + Encounter Details +--------+ + + + + | Date | Type | Department | Care Team | Description | +--------+ + + + + | 12/23/ | Hospital | [facility] | [place], | | | 2008 - | Encounter | MED CTR EMERGENCY | Noel Tolliver MD [address] | | | | | CENTER [address] | [facility] | | | 12/24/ | | [place] | [place] [address] | | | 2008 | | [address] | [phone] | | | | | [phone] | | | +--------+ + + + [...]
--- OUTSIDE RECORDS SUMMARY | ~2019-03-29 | XMS | Encounter Summary ---
Demographics + + + | Address | [address] | | | [place] [address] | + + + | Home Phone | | + + + | Preferred Language | Unknown | + + + | Marital Status | Single | + + + | Mormonism Affiliation | 1041 | + + + | Race | Unknown | + + + | Ethnic Group | Unknown | + + + Author + + + | Author | [facility] | | | and [place] | + + + | Organization | [facility] | | | and [...] Team Providers + +------+ + | Care Avionics System Engineer Name | Role | Phone | + +------+ + PCP | Unavailable | + +------+ + Encounter Details +--------+ + + + + | Date | Type | Department | Care Team | Description | +--------+ + + + + | 01/23/ | Hospital | [facility] | | | | 2005 - | Encounter | MED CTR EMERGENCY | | | | | | [place] [address] | | | | 01/24/ | | [place] | | | | 2005 | | [address] | | | | | | [phone] | | | +--------+ + + + [...]
--- OUTSIDE RECORDS SUMMARY | ~2019-03-29 | XMS | Encounter Summary ---
Demographics + + + | Address | [address] | | | [place] [address] | + + + | Home Phone [...] Author | [facility] | | | and [place] | + + + | Organization | [facility] | | | [...] Providers + +------+ + | Care Sales Order Coordinator Name | Role | Phone | + +------+ + | Yovani Alonso MD | PCP | | + +------+ + Encounter Details +--------+ + + + + | Date | Type | Department | Care Team | Description | +--------+ + + + + | 04/13/ | Hospital | [facility] | Russel Chiang | | | 2014 | Encounter | MED CTR NUCLEAR | MD Juice [address] | | | | | MEDICINE [address] [place] | | | | | [place], | [place], [place] [address] | | | | | [place] [address] | [phone] | | | | | [phone] | | | +--------+ + + + [...]
--- OUTSIDE RECORDS SUMMARY | ~2019-03-29 | XMS | Encounter Summary ---
Demographics + + + | Address | [address] | | | [place] [address] | + + + | Home Phone [...] Author | [facility] | | | and [place] | + + + | Organization | [facility] | | | and [place] [...] Team Providers + +------+ + | Care Ampoule Filler Name | Role | Phone | + +------+ + | Yovani Alonso MD | PCP | | + +------+ + Encounter Details +--------+ + + + + | Date | Type | Department | Care Team | Description | +--------+ + + + + | 04/12/ | [facility] | [facility] | Russel Chiang | Venous insufficiency | | 2014 | Encounter | MED CTR ULTRASOUND | MD Juice [address] | | | | | [address] [place] | [address] [place] | | | | | [place] | [place] [address] | | | | | [address] | [phone] | | | | | [phone] | | | | | | | [address]iscilla [address] | | | | | | [place], Technologist | | | | | | [place], [place] | | | | | | [address] | | +--------+ + + + + [...] + | MISCELLANEOUS LAB | | | [phone] | + +---------+ + + | MISCELANIOUS LAB | | | [phone] | + +---------+ + + documented in this encounter Visit Diagnoses + + | Diagnosis | + + | Venous insufficiency Unspecified venous (peripheral) insufficiency | + + documented in this encounter"
--- OUTSIDE RECORDS SUMMARY | ~2019-03-29 | XMS | Encounter Summary ---
Demographics + + + | Address | [address] | | | [place] [address] | + + + | Home Phone | | + + + | Preferred Language | Unknown | + + + | Marital Status | Single | + + + | Taoist Affiliation | 1041 | + + + | Race | Unknown | + + + | Ethnic Group | Unknown | + + + Author + + + | Author | [facility] | | | and [place] | + + + | Organization | [facility] | [...] Team Providers + +------+ + | Care Peoplesoft Hcm Developer Name | Role | Phone | + +------+ + PCP | Unavailable | + +------+ + Encounter Details +--------+ + + + + | Date | Type | Department | Care Team | Description | +--------+ + + + + | 05/01/ | Hospital | [facility] | Noel Burch | | | 2012 | Encounter | MED CTR EMERGENCY | Jarod Cheatham MD | | | | | CENTER [address] | [address] | | | | | [place] | [place] | | | | | [address] | [address] | | | | | [phone] | | | +--------+ + + + [...] Performed At | + + + | [facility] | [facility] | | Department [address] [place] [address] | [facility] | | [ rep ct [address]] [ rep [facility] | | st zip] Signed | - IMAGING | | | | | Patient Name: DWAINE VEGA | | | Physician: LENA : 1960 Age: 51 Sex: M Unit | | | #: [id number] Exam Date: 05/01/12 Location: | | | ER Report #: [id number] Page: | | | %(RAD)RES..mtdd.print.filter("pg") of %(RAD) | | | RES..mtdd.print.filter("tpg") | | | | | | Accession Number: [id number] | | | PORTABLE CHEST X-RAY CLINICAL [...] Transcribed Date/Time: 05/02/2012 08:34 | | | Dehydrator Tender: <<Signature on File>> | | | | | | Man Maldonado MD05/02/12 1026 <Electronically signed by Man | | Ted Maldonado MD> Man Maldonado MD 05/02/1229 | | | Dehydrator Tender: Avis Fernandez05/02/12 0834 | | | | | + + + + + + + + | Performing | Address | City/State/Zipcode | Phone Number | | Organization | | | | + + + + + | [facility] | [address] | [place] | [phone] | | [facility] | | [address] | | | - IMAGING | | | | + + + + + CT Chest w Contrast (05/02/2012 8:26 AM PST) + + | Specimen | + + | | + + + + + | Narrative | Performed At | + + + | [facility] | [facility] | | Department [address] [facility] | [facility] | | [ rep ct street1[address]] [ rep [facility] | | [facility]] Signed | - IMAGING | | | | | Patient Name: DWAINE VEGA Kp | | | Physician: LENA : 1960 Age: 51 Sex: M Unit | | | #: [id number] Exam Date: 05/01/12 Location: | | | ER Report #: [id number] Page: | | | %(RAD)RES..mtdd.print.filter("pg") of %(RAD) | | | RES..mtdd.print.filter("tpg") | | | | | | Accession Number: [id number] | | | CT CHEST WITH CONTRAST [...] | | | Transcribed Date/Time: 05/02/2012 08:33 Dehydrator Tender: | | | MRMELISSA <<Signature on File>> | | | | | | Aba Gill MD05/02/12 1149 <Electronically signed by | | | Aba Gill MD> Aba Gill MD 05/02/12 | | | 0826 Dehydrator Tender: [employer] Hphiwthldevdg74/08/13 0833 | | | | | + + + + + + + + | Performing | Address | City/State/Zipcode | Phone Number | | Organization | | | | + + + + + | [facility] | [address] | [place] | [phone] | | [facility] | | [address] | | | - IMAGING | | [...] + | [facility] | [address] | [place] | [phone] | | [facility] | | [address] | | | - LABORATORY | | | | + + + + + | [facility] | [address] | [place] | | | [facility] | | [address] | | | - LABORATORY | | [...] | AB | NEGATIVEComment: | | [facility] | | | | Presumptive NEGATIVE for [...] + | [facility] | [address] | [place] | [phone] | | [facility] | | [address] | | | - LABORATORY | | | | + + + + + | [facility] | [address] | [place] | | | [facility] | | [address] | | | - LABORATORY | | [...] + | [facility] | [address] | [place], [place] | [phone] | | [facility] | | [address] | | | - LABORATORY | | | | + + + + + | [facility] | [address] | [place], [place] | | | [facility] | | [address] | | | - LABORATORY | | [...] The | | | | | | [employer] | | | | | [...] [address] | [place] | [phone] | | [facility] | | [address] | | | - LABORATORY | | | | + + + + + | [facility] | [address] | [place] | | | [facility] | | [address] | | | - LABORATORY | | [...] + | [facility] | [address] | [place] | [phone] | | [facility] | | [address] | | | - LABORATORY | | | | + + + + + | [facility] | [address] | [place] | | | [facility] | | [address] | | | - LABORATORY | | [...] | performed on the Joann | | [facility] | | | | [facility] | | MEDICAL | | | [...] [address] | [place] | [phone] | | [facility] | | [address] | | | - LABORATORY | | | | + + + + + | [facility] | [address] | [place] | | | [facility] | | [address] | | | - LABORATORY | | | | + + + + + documented in this encounter Visit Diagnoses Not on filedocumented in this encounter
--- OUTSIDE RECORDS SUMMARY | ~2019-03-29 | XMS | Encounter Summary ---
Demographics + + + | Address | [address] | | | [place] [address] | + + + | Home Phone [...] + + + | Author | [facility] | | | and [place] | + + + | Organization | [facility] | | | and [place] [...] Team Providers + +------+ + | Care Aircraft Ordnance Systems Mechanic Name | Role | Phone | + +------+ + | Yovani Alonso MD | PCP | | + +------+ + Reason for Visit +--------+ + | Reason | Comments | +--------+ + | Other | | +--------+ + Encounter Details +--------+ + + + + | Date | Type | Department | Care Team | Description | +--------+ + + + + | 10/28/ | Telephone | [facility] | Jose Payton [place], | Other | | 2012 | | GASTROENTEROLOGY | MD [address] [place] | | | | | [address] [place] | [address] [place], | | | | | [address] [place], [place] | [place] [address] | | | | | [address] | [phone] | | | | | [phone] | | | +--------+ + + + [...]
--- OUTSIDE RECORDS SUMMARY | ~2019-03-29 | XMS | Encounter Summary ---
Demographics + + + | Address | [address] | | | [place] [address] | + + + | Home Phone | | + + + | Preferred Language | Unknown | + + + | Marital Status | Single | + + + | Buddhist Affiliation | 1041 | + + + | Race | Unknown | + + + | Ethnic Group | Unknown | + + + Author + + + | Author | [facility] | | | and [place] | + + + | Organization | [facility] | | | and [place] [...] Team Providers + +------+ + | Care Shop Service Technician Name | Role | Phone | + +------+ + PCP | Unavailable | + +------+ + Encounter Details +--------+ + + + + | Date | Type | Department | Care Team | Description | +--------+ + + + + | 11/07/ | Hospital | [facility] | Rashel Mcdonald, | | | 2009 | Encounter | MED CTR GENERIC OP | MD [address] | | | | | CONV DEPT [address] | [place] | | | | | [place], | [address] | | | | | [place] [address] | | | | | | [phone] | | | +--------+ + + + [...]
--- OUTSIDE RECORDS SUMMARY | ~2019-03-29 | XMS | Encounter Summary ---
Demographics + + + | Address | [address] | | | [place] [address] | + + + | Home Phone [...] + | Author | [facility] | | | and Chayana | + + + | Organization | [facility] | | | and Chayana [...] Team Providers + +------+ + | Care Skin Care Therapist Name | Role | Phone | + +------+ + | Yovani Alonso MD | PCP | | + +------+ + Encounter Details +--------+ + + + + | Date | Type | Department | Care Team | Description | +--------+ + + + + | 05/19/ | Abstract | [facility] | Mya Oliveros, | | | 2014 | | MED CTR NUCLEAR | Technologist | | | | | MEDICINE [address] | | | | | | [place], | | | | | | [place] [address] | | | | | | [phone] | | | +--------+ + + + [...] | + +--------+ + + + | LVEF VALUE | Routin | 04/12/2014 | | Results for this | | | e | | | procedure are in the | | | | | | results section. | + +--------+ + + + documented in this encounter Results LVEF VALUE (04/12/2014) + +-------+ + + + | Component | Value | Ref Range | Performed | Pathologist | | | | | At | Signature | + +-------+ + + + | LVEF-SPECT | 61 | | | | | NUCLEAR | | | | | | STRESS/VIAB | | | | | | ILITY | | | | | + +-------+ + + + documented in this encounter Visit Diagnoses Not on filedocumented in this encounter"
--- OUTSIDE RECORDS SUMMARY | ~2019-03-29 | XMS | Encounter Summary ---
Demographics + + + | Address | [address] | | | [place] [address] | + + + | Home Phone [...] | Author | [facility] | | | and Chayana | + + + | Organization | [facility] | | | and [place]ayana | + + + | Address | Unknown | + + + | Phone | Unavailable | + + + Support + + +---------+ + | Name | Relationship | Address | Phone | + + +---------+ + | Bteh Mercado | ECON | Unknown | | + + +---------+ + Care Team Providers + +------+ + | Care Paper Slitter Name | Role | Phone | + +------+ + PCP | Unavailable | + +------+ + Encounter Details +--------+ + + + + | Date | Type | Department | Care Team | Description | +--------+ + + + + | 02/05/ | Hospital | [facility] | Man Madden, | | | 2006 | Encounter | MED CTR XRAY [address] | [address] | | | | | [place] | [place] | | | | | [place] [address] | [address] | | | | | [phone] | | | +--------+ + + + [...]
--- OUTSIDE RECORDS SUMMARY | ~2019-03-29 | XMS | Encounter Summary ---
Demographics + + + | Address | [address] | | | [place] [address] | + + + | Home Phone | | + + + | Preferred Language | Unknown | + + + | Marital Status | Single | + + + | Taoism Affiliation | 1041 | + + + | Race | Unknown | + + + | Ethnic Group | Unknown | + + + Author + + + | Author | [facility] | | | and Chayana | + + + | Organization | [facility] | | | and Chayana [...] Team Providers + +------+ + | Care Bull Rider Name | Role | Phone | + +------+ + PCP | Unavailable | + +------+ + Encounter Details +--------+ + + + + | Date | Type | Department | Care Team | Description | +--------+ + + + + | 11/12/ | Hospital | [facility] | | | | 2006 | Encounter | MED CTR XRAY [address] | | | | | | [place] | | | | | | [place] [address] | | | | | | [phone] | | | +--------+ + + + [...]
--- OUTSIDE RECORDS SUMMARY | ~2019-03-29 | XMS | Encounter Summary ---
Demographics + + + | Address | [address] | | | [place] [address] | + + + | Home Phone [...] + | Author | [facility] | | | and Chayana | + + + | Organization | [facility] | | | and Chayana | + [...] Team Providers + +------+ + | Care Hydraulics Teacher Name | Role | Phone | + +------+ + PCP | Unavailable | + +------+ + Encounter Details +--------+ + + + + | Date | Type | Department | Care Team | Description | +--------+ + + + + | 08/25/ | Hospital | [facility] | | | | 2008 | Encounter | MED CTR EMERGENCY | | | | | | CENTER [address] | | | | | | [place] | | | | | | [address] | | | | | | [phone] | | | +--------+ + + + [...]
--- OUTSIDE RECORDS SUMMARY | ~2019-03-29 | XMS | Encounter Summary ---
Demographics + + + | Address | [address] | | | [place] [address] | + + + | Home Phone | | + + + | Preferred Language | Unknown | + + + | Marital Status | Single | + + + | Mosque Affiliation | 1041 | + + + | Race | Unknown | + + + | Ethnic Group | Unknown | + + + Author + + + | Author | [facility] | | | and [place]ayana | + + + | Organization | [facility] | [...] Team Providers + +------+ + | Care Pega Developer Name | Role | Phone | + +------+ + PCP | Unavailable | + +------+ + Encounter Details +--------+ + + + + | Date | Type | Department | Care Team | Description | +--------+ + + + + | 07/31/ | Hospital | [facility] | Rashel Mcdonald, | | | 2005 | Encounter | MED CTR XRAY [address] | [address] | | | | | [place] | [place] | | | | | [place] [address] | [address] | | | | | [phone] | | | +--------+ + + + [...]
--- OUTSIDE RECORDS SUMMARY | ~2019-03-29 | XMS | Clinical Summary ---
Demographics + + + | Address | [address] | | | [place] [address] | + + + | Home Phone [...] | Author | [facility] | | | and Chayana | + + + | Organization | [facility] | | | and [...] Team Providers + +------+ + | Care Toxicology Supervisor Name | Role | Phone | [...] + +---+ + + | Overview: [place] [id number] Decision | + + + +---+ | [...] +--------+ +---------+--------+ | MEDICARE | MEDICA | [id number] | 09/23/19 | [phone] | | Medica | | | RE | | 09-Pre | 5 | | re | | | PART A | | sent | | | | | | AND B | | | | | | + +--------+ +--------+ +---------+--------+ | MEDICARE | MEDICA | [id number] | 10/24/19 | [phone] | | Medica | | | RE | | 10-Pre | 5 | | re | | | PART A | | sent | | | | | | AND B | | | | | | + +--------+ +--------+ +---------+--------+ | [employer] PLAN | MODA | [id number] | 03/05/ | [phone] | | Medica | | MEDICAID HMO | HEALTH | | 2018-P | 1 | | id | | | MDCD | | resent | | | | | | HMO [place] | | | | | | + +--------+ +--------+ +---------+--------+ | [employer]AN | MODA | [id number] | 02/18/ | [phone] | | Medica | | MEDICAID HMO [...] | 1961 | [id number] | [place] [address] | | | misty | | | 5 (Home) | | + +--------+ +--------+ + + | Junior Roque | Person | Self | [birth year] | [address] | | Jr. | al/Fam | | 1961 | [phone] | [place] [address] | | | misty | | | 5 (Home) | | + +--------+ +--------+ + + Advance Directives + + + + + | Type | Date Recorded | Patient | Explanation | | | | Associate Relations Specialist | | + + + + + | Power of | | | | | Cork Tile Floor Layer | | | | + + + + + | Advance | 11/13/2013 1:45 | | booklet given | | Directive | PM | | | + + + + +
--- OUTSIDE RECORDS SUMMARY | ~2019-03-29 | XMS | Encounter Summary ---
Demographics + + + | Address | [address] | | | [place] [address] | + + + | Home Phone [...] + + + | Author | [facility] | | | and [place]ayana | + + + | Organization | [facility] | | | and [...] Team Providers + +------+ + | Care Farmworker Animal Name | Role | Phone | + +------+ + | Yovani Alonso MD | PCP | | + +------+ + Reason for Visit +---------+ + | Reason | Comments | +---------+ + | Results | | +---------+ + Encounter Details +--------+ + + + + | Date | Type | Department | Care Team | Description | +--------+ + + + + | 10/16/ | Telephone | [facility] | Sharlene Velázquez RN | Results | | 2012 | | GASTROENTEROLOGY | | | | | | [address] [facility] | | | | | | [address] [place] | | | | | | [address] | | | | | | [phone] | | | +--------+ + + + [...]
--- OUTSIDE RECORDS SUMMARY | ~2019-03-29 | XMS | Encounter Summary ---
Demographics + + + | Address | [address] | | | [place] [address] | + + + | Home Phone [...] Author | [facility] | | | and [place]ayana | + + + | Organization | [facility] | | | and [...] Team Providers + +------+ + | Care Polysomnography Technician Name | Role | Phone | + +------+ + PCP | Unavailable | + +------+ + Encounter Details +--------+ + + + + | Date | Type | Department | Care Team | Description | +--------+ + + + + | 09/13/ | Hospital | [facility] | Rashel Mcdonald, | | | 2005 | Encounter | MED CTR LABORATORY | [address] | | | | | [address] | [place] | | | | | [place] | [address] | | | | | [address] | | | | | | [phone] | | | +--------+ + + + [...]
--- OUTSIDE RECORDS SUMMARY | ~2019-03-29 | XMS | Encounter Summary ---
Demographics + + + | Address | [address] | | | [place] [address] | + + + | Home Phone | | + + + | Preferred Language | Unknown | + + + | Marital Status | Single | + + + | Jew Affiliation | 1041 | + + + | Race | Unknown | + + + | Ethnic Group | Unknown | + + + Author + + + | Author | [facility] | | | and [place]ayana | + + + | Organization | [facility] | | | and [place] [...] Team Providers + +------+ + | Care Blood Bank Technician Name | Role | Phone | + +------+ + | Yovani Alonso MD | PCP | | + +------+ + Encounter Details +--------+ + + + + | Date | Type | Department | Care Team | Description | +--------+ + + + + | 08/21/ | Hospital | [facility] | Jarod Chaves | | | 2012 | Encounter | MED CTR EMERGENCY | MD Curt [address] | | | | | CENTER [address] | [address] | | | | | [place] | [place] [address] | | | | | [address] | [phone] | | | | | [phone] | | | +--------+ + + + [...] Performed At | + + + | [facility] | [facility] | | Department [address] [facility] | [facility] | | [ rep [address]] [ rep [facility] | | st zip] Signed | - IMAGING | | | | | Patient Name: DWAINE VEGA | | | Physician: MATT : 1960 Age: 52 Sex: M Unit | | | #: [id number] Exam Date: 08/21/12 Location: | | | ER Report #: [id number] Page: | | | %(RAD)RES..mtdd.print.filter("pg") of %(RAD) | | | RES..mtdd.print.filter("tpg") | | | | | | Accession Number: [id number] | | | RIGHT ANKLE, RIGHT FOOT, [...] Transcribed | | | Date/Time: 08/22/2012 09:42 Sap Business Objects Consultant: | | | <<Signature on File>> | | | Jw | | | Luiza Youssef MD08/22/12 1133 <Electronically signed by Jw Jean | Ted Youssef MD> Jw Youssef MD 08/22/12 0833 | | | [employer] Consultant: [email or web address] Sdassuseyyqao79/31/13 0942 | | | Jarod Chaves MD | | + + + + + + + + | Performing | Address | City/State/Zipcode | Phone Number | | Organization | | | | + + + + + | [facility] | [address] | [place] | [phone] | | [facility] | | [address] | | | - IMAGING | | | | + + + + + XR Foot Right 3 + Vw (08/22/2012 8:33 AM PDT) + + | Specimen | + + | | + + + + + | Narrative | Performed At | + + + | [facility] | [facility] | | Department [address] [place] [address] | [facility] | | [ rep [address]] [ rep [facility] | | st [facility]] Signed | - IMAGING | | | | | Patient Name: DWAINE VEGA Kp | | | Physician: MATT : 1960 Age: 52 Sex: M Unit | | | #: [id number] Exam Date: 08/21/12 Location: | | | ER Report #: [id number] Page: | | | %(RAD)RES..mtdd.print.filter("pg") of %(RAD) | | | RES..mtdd.print.filter("tpg") | | | | | | Accession Number: [id number] | | | RIGHT ANKLE, RIGHT FOOT, [...] Transcribed | | | Date/Time: 08/22/2012 09:42 [employer] Consultant: | | | <<Signature on File>> | | | Jw | | | Luiza Youssef MD08/22/12 1133 <Electronically signed by Jw Jarrett | | | Mikael MARIE> Jw Youssef MD 08/22/12 6230 | | | [employer] Consultant: Avis [id number]/31/13941 | | | Jarod Chaves MD | | + + + + + + + + | Performing | Address | City/State/Zipcode | Phone Number | | Organization | | | | + + + + + | [facility] | [address] | [place] | [phone] | | [facility] | | [address] | | | - IMAGING | | | | + + + + + documented in this encounter Visit Diagnoses Not on filedocumented in this encounter
--- OUTSIDE RECORDS SUMMARY | ~2019-03-29 | XMS | Encounter Summary ---
Demographics + + + | Address | [address] | | | [place] [address] | + + + | Home Phone [...] | Author | [facility] | | | and [place]ayana | + + + | Organization | [facility] | | | [...] Team Providers + +------+ + | Care Dialysis Rn Name | Role | Phone | + +------+ + | Yovani Alonso MD | PCP | | + +------+ + Encounter Details +--------+ + + + + | Date | Type | Department | Care Team | Description | +--------+ + + + + | 07/22/ | Hospital | [facility] | [place], | | | 2012 | Encounter | MED CTR EMERGENCY | Noel Tolliver MD [address] | | | | | CENTER [address] [place] | [address] | | | | | [place] | [place] [address] | | | | | [address] | [phone] | | | | | [phone] | | | +--------+ + + + [...] Performed At | + + + | [facility] | [place] | | Department [address] [facility] | [facility] | | [ rep ct street[address]] [ rep [facility] | | [facility]] Signed | - IMAGING | | | | | Patient Name: DWAINE VEGA | | | Physician: APPLE : 1960 Age: 52 Sex: M Unit | | | #: [id number] Exam Date: 07/22/12 Location: | | | ER Report #: [id number] Page: | | | %(RAD)RES..mtdd.print.filter("pg") of %(RAD) | | | RES..mtdd.print.filter("tpg") | | | | | | Accession Number: [id number] | | | RIGHT FOOT X-RAY CLINICAL [...] Transcribed Date/Time: | | | 07/22/2012 14:13 Tile Machine Operator: | | | <<Signature on File>> | | | Ga | | | MD Clif07/22/12 4857 <Electronically signed by Ga Menezes MD> | | | Ga Menezes MD 07/22/12 1120 Tile Machine Operator: Avis | | | Mzmyagzowxsto22/30/13 9253 Noel Sims MD | | | | | + + + + + + + + | Performing | Address | City/State/Zipcode | Phone Number | | Organization | | | | + + + + + | [facility] [address] | [address] | [place] | [phone] | | [facility] | | [address] | | | - IMAGING | | | | + + + + + documented in this encounter Visit Diagnoses Not on filedocumented in this encounter
--- OUTSIDE RECORDS SUMMARY | ~2019-03-29 | XMS | Encounter Summary ---
Demographics + + + | Address | [address] | | | [place] [address] | + + + | Home Phone | | + + + | Preferred Language | Unknown | + + + | Marital Status | Single | + + + | Religion Affiliation | 1041 | + + + | Race | Unknown | + + + | Ethnic Group | Unknown | + + + Author + + + | Author | [facility] | | | and [place] | + + + | Organization | [facility] | | | and [...] Team Providers + +------+ + | Care Drupal Web Developer Name | Role | Phone | + +------+ + | Yovani Alonso MD | PCP | | + +------+ + Encounter Details +--------+ + + + + | Date | Type | Department | Care Team | Description | +--------+ + + + + | 11/30/ | Hospital | [facility] | Noel Burch | | | 2012 | Encounter | MED CTR EMERGENCY | Jarod Cheatham MD | | | | | CENTER [address] | [address] | | | | | [place] | [place] | | | | | [address] | [id number] | | | | | [phone] | | | +--------+ + + + [...]
--- OUTSIDE RECORDS SUMMARY | ~2019-03-29 | XMS | Encounter Summary ---
Demographics + + + | Address | [address] | | | [place] [address] | + + + | Home Phone | | + + + | Preferred Language | Unknown | + + + | Marital Status | Single | + + + | Confucianist Affiliation | 1041 | + + + | Race | Unknown | + + + | Ethnic Group | Unknown | + + + Author + + + | Author | [facility] | | | and [place]ay[place] | + + + | Organization | [facility] | | | and [...] Team Providers + +------+ + | Care Therapist Asst Name | Role | Phone | + +------+ + PCP | Unavailable | + +------+ + Encounter Details +--------+ + + + + | Date | Type | Department | Care Team | Description | +--------+ + + + + | 05/07/ | Hospital | [facility] | | | | 2006 | Encounter | MED CTR LABORATORY | | | | | | [address] | | | | | | [place] | | | | | | [address] | | | | | | [phone] | | | +--------+ + + + [...]
--- OUTSIDE RECORDS SUMMARY | ~2019-03-29 | XMS | Encounter Summary ---
Demographics + + + | Address | [address] | | | [place] [address] | + + + | Home Phone [...] | Author | [facility] | | | and [place]ayana | + + + | Organization | [facility] | | | and [place] [...] Team Providers + +------+ + | Care Pilot Control Operator Helper Name | Role | Phone | + +------+ + | Yovani Alonso MD | PCP | | + +------+ + Encounter Details +--------+ + + + + | Date | Type | Department | Care Team | Description | +--------+ + + + + | 11/30/ | Hospital | [facility] | Noel Burch | | | 2012 | Encounter | MED CTR EMERGENCY | Jarod Cheatham MD | | | | | CENTER [address] | [address] | | | | | [place] | [place] | | | | | [address] | [id number] | | | | | [phone] | | | +--------+ + + + [...]
--- OUTSIDE RECORDS SUMMARY | ~2019-03-29 | XMS | Encounter Summary ---
Demographics + + + | Address | [address] | | | [place] [address] | + + + | Home Phone [...] | [facility] | | | and [place]ay[place] | + + + | Organization | [facility] | | [...] Team Providers + +------+ + | Care Statistical Analyst Name | Role | Phone | + +------+ + PCP | Unavailable | + +------+ + Encounter Details +--------+ + + + + | Date | Type | Department | Care Team | Description | +--------+ + + + + | 11/25/ | Hospital | [facility] | | | | 2006 | Encounter | MED CTR EMERGENCY | | | | | | CENTER [address] | | | | | | [place] | | | | | | [address] | | | | | | [phone] | | | +--------+ + + + [...]
--- OUTSIDE RECORDS SUMMARY | ~2019-03-29 | XMS | Encounter Summary ---
Demographics + + + | Address | [address] | | | [place] [address] | + + + | Home Phone [...] + | Author | [facility] | | | and [place]ay[place] | + + + | Organization | [facility] | | | and [...] Team Providers + +------+ + | Care White Sugar Syrup Operator Name | Role | Phone | + +------+ + PCP | Unavailable | + +------+ + Encounter Details +--------+ + + + + | Date | Type | Department | Care Team | Description | +--------+ + + + + | 11/21/ | Hospital | [facility] | Jessica Dunn | | | 2006 | Encounter | MED CTR EMERGENCY | Caren Mejia MD [address] | | | | [address] | [facility] | | | | | [place] | [place] [address] | | | | | [address] | [phone] | | | | | [phone] | | | +--------+ + + + [...]
--- OUTSIDE RECORDS SUMMARY | ~2019-03-29 | XMS | Encounter Summary ---
Demographics + + + | Address | [address] | | | [place] [address] | + + + | Home Phone [...] + + | Author | [facility] | | | and [place]ayana | + + + | Organization | [facility] | | | and [place] [...] Team Providers + +------+ + | Care Specialties Operator Name | Role | Phone | [...] (coronary | MD Juice | [address] | | | | | artery | [address] | [place], | | | | | disease) | [place] | [place] | | | | | Procedures | [place] | [address] | | | | | [place] Nuclear | [address] | Phone: | | | | | Stress Test | Phone: | [phone] | | | | | (Vasodilator | [phone] | Fax: | | | | | ) CHG | Fax: | [phone] | | | | | MYOCARDIAL | [phone] | | | | | | SPECT | | | | | | | MULTIPLE | | | | | | | STUDIES LA | | | | | | | CV STRS TST | | | | | | | XERS&/OR RX | | | | | | | CONT ECG W/O | | | | | | | I&R LA | | | | | | | [...] (coronary | MD Juice | [address] | | | | | artery | [address] | [place], | | | | | disease) | [place] | [place] | | | | | Procedures | [place], [place] | [address] | | | | | [place] | [address] | Phone: | | | | | Stress Test | Phone: | [phone] | | | | | (Vasodilator | [phone] | Fax: | | | | | ) CHG | Fax: | [phone] | | | | | MYOCARDIAL | [phone] | | | | | | SPECT | | | | | | | MULTIPLE | | | | | | | STUDIES LA | | | | | | | CV STRS TST | | | | | | | XERS&/OR RX | | | | | | | CONT ECG W/O | | | | | | | I&R LA | | | | | | | [...] + + | 04/12/ | Hospital | [facility] | PatrickRussel abernathy | CAD (coronary artery | | 2015 | Encounter | MED CTR NUCLEAR | MD Juice [address] | disease) | | | | MEDICINE [address] [place] | | | | | [address] [place], | [place] [address] | | | | | [place] [address] | [phone] | | | | | [phone] | | | +--------+ + + + [...] and systolic function with LVEF 61%. | [facility] | | 3. No significant fixed or ischemic perfusion abnormalities noted. | [facility] | | 4. Overall this is a low-risk stress perfusion imaging study. | - IMAGING | | Signed by: Andrez Chiang MD PhD FACC 04/13/2014, 10:34 | | + + + + + + | Narrative | Performed At | + + + | NUCLEAR MEDICINE STRESS TEST REPORT | [facility] | | Patient Name: Junior Roque Jr. Study Date: 04/12/2014 | [facility] | | Primary Care Provider: Yovani Alonso MD : [facility] | | 1960 Age: 53 y.o. Gender: [...] + | [facility] | [address] | [place] | [phone] | | [facility] | | [address] | | | - IMAGING | | | | + + + + + documented in this encounter Visit Diagnoses + + | Diagnosis | + + | CAD (coronary artery disease) Coronary atherosclerosis of unspecified type of vessel, | | benton or graft | + + documented in [...]
--- OUTSIDE RECORDS SUMMARY | ~2019-03-29 | XMS | Encounter Summary ---
Demographics + + + | Address | [address] | | | [place] [address] | + + + | Home Phone | | + + + | Preferred Language | Unknown | + + + | Marital Status | Single | + + + | Lutheran Affiliation | 1041 | + + + | Race | Unknown | + + + | Ethnic Group | Unknown | + + + Author + + + | Author | [facility] | | | and [place] | + + + | Organization | [facility] [...] Providers + +------+ + | Care Assembler Billiard Table Name | Role | Phone | + +------+ + PCP | Unavailable | + +------+ + Encounter Details +--------+ + + + + | Date | Type | Department | Care Team | Description | +--------+ + + + + | 02/04/ | Hospital | [facility] | | | | 2005 | Encounter | MED CTR EMERGENCY | | | | | | CENTER [address] | | | | | | [place] | | | | | | [address] | | | | | | [phone] | | | +--------+ + + + [...]
--- OUTSIDE RECORDS SUMMARY | ~2019-03-29 | XMS | Encounter Summary ---
Demographics + + + | Address | [address] | | | [place] [address] | + + + | Home Phone | | + + + | Preferred Language | Unknown | + + + | Marital Status | Single | + + + | Anabaptism Affiliation | 1041 | + + + | Race | Unknown | + + + | Ethnic Group | Unknown | + + + Author + + + | Author | [facility] | | | and Chayana | + + + | Organization | [facility] | | | and [...] Team Providers + +------+ + | Care Washery Engineer Name | Role | Phone | [...] Medicine | JAG | Ubaldo Hirsch | [place] [address] | | | Required | | (obstructive | MD [address] | [address] | | | | | sleep | Jaime Funez | [place], | | | | | apnea) | [place] | [place] [address] | | | | | Organic | [place] | Phone: | | | | | insomnia | [phone] | [phone] | | | | | Sleepiness | Phone: | Fax: | | | | | Essential | [phone] | [phone] | | | | | hypertension | Fax: | | | | | | Procedures | [phone] | | | | | | [place] POLYSOM | | | | | | [...] | | | sleep | [address] | [address] | | | | | apnea) | St [place] | [place] | | | | | Procedures | [place] | [place] | | | | | [place] OFFICE | [address] | [address] Phone: | | | | | CONSULTATION | Phone: | [phone] | | | | | NEW/ESTAB | [phone] | Fax: | | | | | PATIENT 40 | Fax: | [phone] | | | | | MIN [place] | [phone] | | | | | | OFFICE [...] + | 04/19/ | Office | [facility] | Ubaldo Xie | JAG (obstructive | | 2015 | Visit | SLEEP DISORDER [address] | MD [address] | sleep apnea) | | | | [address] [place] | [address] [place] | (Primary Dx); | | | | [place] [address] | [place] [address] | Organic insomnia; | | | | [phone] | [phone] | Sleepiness; | | | | | [...] night, making your sleep fragmented with a teacher of the hearing impaired stage of sleep. Even t tristian you do not remember waking up many times during the night to a teacher of the hearing impaired sleep, you feel tired the next day. [...] block the airway when you re asleep. [id number] [employer]. [address] [place] [address], [place] [address]. All righ ts reserved. This information is [...] you will have a private bedroom. A formulation technician rah torrez attach many sensors to your body, then go into another room. As you sleep, your heart rate , breathing, oxygen level, brain activity, and other functions will be tracked. A microphone and video camera will record your breathing sounds and body movements. The formulation technician will keep watch nearby. If you [...] may be the right ones for you. 0532-9412 [employer]. [address] [place] [address]. All righ ts reserved. This information is [...] you will have a private bedroom. A formulation technician rah torrez attach many sensors to your body, then go into another room. As you sleep, your heart rate , breathing, oxygen level, brain activity, and other functions will be tracked. A microphone and video camera will record your breathing sounds and body movements. The formulation technician will keep watch nearby. If you [...] may be the right ones for you. 8069-8594 [employer]. [address] [place] [address]. All righ ts reserved. This information is [...] be differen t from the original. [facility] [place] [address] Ref: Russel Chiang, * CC: Chief Complaint Patient presents with Consult History of the Present Illness:This is a 53 year old male who is referred for sleep medicin e consultation by Dr. Andrez Chiang because of possible JAG. Other significant medical issues in clude HIV infection, COPD/Emphysema, HBP, neprholithiasis, anxiety/depression.. The patient' s records ([facility] EMR) are reviewed. The patient is [...] n ight. The diagnosed with HIV at [facility] in May of 2005 - [...] Osteoarthritis; COPD (chronic obstruct eamon pulmonary disease) ([facility]); Fatigue; Chronic diarrhea; HIV (human immunodeficiency virus i nfection) ([facility]) (2005); Hypertension; Herpes simplex type 2 infection; Nephrolithiasis; Rachelle pheral neuropathy ([facility]); Anxiety state, unspecified; Unspecified asthma(493.90); Other atopi c dermatitis and related conditions; Mixed hyperlipidemia; History of tobacco abuse; Obstruc tive chronic bronchitis with exacerbation ([facility]); Allergic rhinitis, cause unspecified; and P eripheral [...] Review: The score of 23 on the [place] Sleepiness scale suggests severe emeka gnized excessive [...] Insomnia Severity Index Insomnia Severity Index 26 [place] Sleepiness Scale Sitting and reading 3 Watching [...]
--- OUTSIDE RECORDS SUMMARY | ~2019-03-29 | XMS | Encounter Summary ---
Demographics + + + | Address | [address] | | | [place] [address] | + + + | Home Phone [...] Author | [facility] | | | and Chayana | + + + | Organization | [facility] | | | and Chayana [...] Team Providers + +------+ + | Care Communications Representative Name | Role | Phone | + +------+ + PCP | Unavailable | + +------+ + Encounter Details +--------+ + + + + | Date | Type | Department | Care Team | Description | +--------+ + + + + | 11/15/ | Hospital | [facility] | Rashel Mcdonald, | | | 2005 | Encounter | MED CTR XRAY [address] | [address] | | | | | [place] | [place] | | | | | [place] [address] | [address] | | | | | [phone] | | | +--------+ + + + [...]
--- OUTSIDE RECORDS SUMMARY | ~2019-03-29 | XMS | Encounter Summary ---
Demographics + + + | Address | [address] | | | [place] [address] | + + + | Home Phone [...] + + + | Author | [facility] | | | and Chayana | + + + | Organization | [facility] | [...] Team Providers + +------+ + | Care Civil Service Worker Name | Role | Phone | + +------+ + PCP | Unavailable | + +------+ + Encounter Details +--------+ + + + + | Date | Type | Department | Care Team | Description | +--------+ + + + + | 12/20/ | Hospital | [facility] | | | | 2006 | Encounter | MED CTR EMERGENCY | | | | | | CENTER [address] | | | | | | [place] | | | | | | [address] | | | | | | [phone] | | | +--------+ + + + [...]
--- OUTSIDE RECORDS SUMMARY | ~2019-03-29 | XMS | Encounter Summary ---
Demographics + + + | Address | [address] | | | [place] [address] | + + + | Home Phone [...] + + + | Author | [facility] | | | and Chayana | + + + | Organization | [facility] | | | [...] Team Providers + +------+ + | Care Registered Private Duty Nurse Name | Role | Phone | + +------+ + PCP | Unavailable | + +------+ + Encounter Details +--------+ + + + + | Date | Type | Department | Care Team | Description | +--------+ + + + + | 02/07/ | Hospital | [facility] | Renetta Falk | | | 2005 | Encounter | MED CTR XRAY [address] | MD Yvonne [address] | | | | | [place] | [address] [place] | | | | | [place] [address] | [place] [address] | | | | | [phone] | [phone] | | | | | | | [...]
--- OUTSIDE RECORDS SUMMARY | ~2019-03-29 | XMS | Clinical Summary ---
Demographics + + + | Address | [address] | | | [place] [address] | + + + | Home Phone | | + + + | Preferred Language | Unknown | + + + | Marital Status | Single | + + + | Worship Affiliation | Unknown | + + + [...] Team Providers + +------+ + | Care Chlorination Operator Name | Role | Phone | + +------+ + | Yovani Alonso MD | PCP | | + +------+ + Source Comments ELLE is fully live on both [facility] and [facility] InPatient.[facility] Allergies + + + + + + [...] | + +--------+ + + + | [place] | Routin | 02/22/2019 | Tonsil cancer | | | LARYNGOSCOPY,FLEXIBL | e | 8:36 PM | ([facility]) | | | E, DIAGNOSTIC | | [...] | MEDICA | xxxxxxxxxxx | 10/24/19 | [phone] | [address] | Medica | | | RE A & | | 10-Pre | 1 | [address] | re | | | B | | sent | | [place], [place] | | | | | | | | [address] | | + +--------+ +--------+ + +--------+ | [employer] [employer] | GINNER | [id number] | 03/25/19 | | | [...] | | al/Cornelio | | 1961 | [phone] | [place] [address] | | | misty | | | 5 (Home) | | + +--------+ +--------+ + +"
--- OUTSIDE RECORDS SUMMARY | ~2019-03-29 | XMS | Encounter Summary ---
Demographics + + + | Address | [address] | | | [place] [address] | + + + | Home Phone | | + + + | Preferred Language | Unknown | + + + | Marital Status | Single | + + + | Advent Affiliation | 1041 | + + + | Race | Unknown | + + + | Ethnic Group | Unknown | + + + Author + + + | Author | [facility] | | | and Chayana | + + + | Organization | [facility] | | [...] Team Providers + +------+ + | Care Shopping Investigator Name | Role | Phone | + +------+ + PCP | Unavailable | + +------+ + Encounter Details +--------+ + + + + | Date | Type | Department | Care Team | Description | +--------+ + + + + | 08/21/ | Hospital | [facility] | João Resendez MD | | | 2008 | Encounter | MED CTR MP INTRA OP | [address] | | | | | [address] | [place], [place] | | | | | [place], [place] | [address] | | | | | [address] | [phone] | | | | | [phone] | | | +--------+ + + + [...]
--- OUTSIDE RECORDS SUMMARY | ~2019-03-29 | XMS | Encounter Summary ---
Demographics + + + | Address | [address] | | | [place] [address] | + + + | Home Phone | | + + + | Preferred Language | Unknown | + + + | Marital Status | Single | + + + | Yazidism Affiliation | 1041 | + + + | Race | Unknown | + + + | Ethnic Group | Unknown | + + + Author + + + | Author | [facility] | | | and Chayana | + + + | Organization | [facility] | [...] Providers + +------+ + | Care Automotive Service Writer Name | Role | Phone | + +------+ + PCP | Unavailable | + +------+ + Encounter Details +--------+ + + + + | Date | Type | Department | Care Team | Description | +--------+ + + + + | 02/07/ | Hospital | [facility] | Renetta Falk | | | 2005 | Encounter | MED CTR XRAY [address] | MD Yvonne [address] | | | | | [place] | [address] [place] | | | | | [place] [address] | [place] [address] | | | | | [phone] | [phone] | | | | | | | [...]
--- OUTSIDE RECORDS SUMMARY | ~2019-03-29 | XMS | Encounter Summary ---
Demographics + + + | Address | [address] | | | [place] [address] | + + + | Home Phone | | + + + | Preferred Language | Unknown | + + + | Marital Status | Single | + + + | Sikh Affiliation | 1041 | + + + | Race | Unknown | + + + | Ethnic Group | Unknown | + + + Author + + + | Author | [facility] | | | and Chayana | + + + | Organization | [facility] | | | and [place]ayana [...] Providers + +------+ + | Care Table Worker Packager Name | Role | Phone | + [...] + | 04/19/ | Telephone | [facility] | Russel Chiang | Appointment (1 yr | | 2015 | | [address] | MD Juice [address] | PRN due in June) | | | | [place], | [address] [place] [address] [place] | | | | | [place] [address] | [place] [address] | | | | | [phone] | [phone] | | | | | | | [...]
--- OUTSIDE RECORDS SUMMARY | ~2019-03-29 | XMS | Encounter Summary ---
Demographics + + + | Address | [address] | | | [place] [address] | + + + | Home Phone | | + + + | Preferred Language | Unknown | + + + | Marital Status | Single | + + + | Spiritism Affiliation | 1041 | + + + | Race | Unknown | + + + | Ethnic Group | Unknown | + + + Author + + + | Author | [facility] | | | and Chayana | + + + | Organization | [facility] | | | and [...] Team Providers + +------+ + | Care Tractor Trailer Moving Van Driver Name | Role | Phone | + +------+ + PCP | Unavailable | + +------+ + Encounter Details +--------+ + + + + | Date | Type | Department | Care Team | Description | +--------+ + + + + | 07/24/ | Hospital | [facility] | | | | 2005 | Encounter | MED CTR LABORATORY | | | | | | [address] | | | | | | [place] | | | | | | [address] | | | | | | [phone] | | | +--------+ + + + [...]
--- OUTSIDE RECORDS SUMMARY | ~2019-03-29 | XMS | Encounter Summary ---
Demographics + + + | Address | [address] | | | [place] [address] | + + + | Home Phone [...] | Author | [facility] | | | and Chayana | + + + | Organization | [facility] | | | and [...] Team Providers + +------+ + | Care Transport Medic Name | Role | Phone | + [...] | | | | CENTER [address] | [address] [place] | initial encounter | | | | [place], [place] | [place] [address] | (Primary Dx) | | | | [address] | [phone] | | | | | [phone] | | | +--------+ + + + [...] + | MISCELLANEOUS LAB | | | [phone] | + +---------+ + + | MISCELANIOUS LAB | | | [phone] | + +---------+ + + ED INFORMATION EXCHANGE (08/17/2013 12:49 PM PDT) + + | Specimen | + + | | + + + + + | Narrative | Performed At | + + + | VISIT TRACKING (3 MO.) Visit Date Location | [facility] | | Type Diagnoses | | | -------- | | | ---- 08/17/2013 12:49 [place] | | | [facility] Emergency Right ankle pain; | | | 06/26/2013 22:44 [facility] | | | Emergency Cellulitis and abscess of leg, except foot; | | | | | | lft leg wound/bite; | | | | | | Leg Pain; VISIT COUNT (1 YR.) Visits | | | Medicaid [place] Dx Location ------ | | | --------- 7 1 [facility] | | | [facility] 7 1 Total | | | Note: Visits indicate total known visits. Medicaid [place] Dx are the | | | number of primary diagnoses on the [facility]'s non-emergent dx list. | | | [...]
--- OUTSIDE RECORDS SUMMARY | ~2019-03-29 | XMS | Encounter Summary ---
Demographics + + + | Address | [address] | | | [place] [address] | + + + | Home Phone [...] + | Author | [facility] | | | and Chayana | + + + | Organization | [facility] [...] Team Providers + +------+ + | Care Salary Manager Name | Role | Phone | + +------+ + PCP | Unavailable | + +------+ + Encounter Details +--------+ + + + + | Date | Type | Department | Care Team | Description | +--------+ + + + + | 03/09/ | Hospital | [facility] | | | | 2008 | Encounter | MED CTR EMERGENCY | | | | | | CENTER [address] | | | | | | [place] | | | | | | [address] | | | | | | [phone] | | | +--------+ + + + [...]
--- OUTSIDE RECORDS SUMMARY | ~2019-03-29 | XMS | Encounter Summary ---
Demographics + + + | Address | [address] | | | [place] [address] | + + + | Home Phone [...] | Author | [facility] | | | and [place]ayana | + + + | Organization | [facility] | | | [...] + +------+ + | Care Quality Assurance Auditor Name | Role | Phone | + +------+ + | Yovani Alonso MD | PCP | | + +------+ + Encounter Details +--------+---------+ + + + | Date | Type | Department | Care Team | Description | +--------+---------+ + + + | 06/09/ | Office | [facility] | Ubaldo Xie | NO SHOW (Primary Dx) | | 2015 | Visit | SLEEP DISORDER [address] | MD [address] | | | | | [address] [place] | [address] [place] | | | | | [place], [place] [address] | [place] [address] | | | | | [phone] | [phone] | | | | | | | [...]
--- OUTSIDE RECORDS SUMMARY | ~2019-03-29 | XMS | Encounter Summary ---
Demographics + + + | Address | [address] | | | [place] [address] | + + + | Home Phone | | + + + | Preferred Language | Unknown | + + + | Marital Status | Single | + + + | Zoroastrian Affiliation | 1041 | + + + | Race | Unknown | + + + | Ethnic Group | Unknown | + + + Author + + + | Author | [facility] | | | and Chayana | + + + | Organization | [facility] [...] Team Providers + +------+ + | Care Logistics Supervisor Name | Role | Phone | + +------+ + | Yovani Alonso MD | PCP | | + +------+ + Encounter Details +--------+ + + + + | Date | Type | Department | Care Team | Description | +--------+ + + + + | 07/11/ | Hospital | [facility] | Yovani Alonso MD | | | 2012 | Encounter | MED CTR LABORATORY | [address] | | | | | [address] | [place] | | | | | [place] | [address] | | | | | [address] | | | | | | [phone] | | | +--------+ + + + [...]
--- OUTSIDE RECORDS SUMMARY | ~2019-03-29 | XMS | Encounter Summary ---
Demographics + + + | Address | [address] | | | [place] [address] | + + + | Home Phone [...] Author | [facility] | | | and [place]ayana | + + + | Organization | [facility] | | | and [...] Team Providers + +------+ + | Care Substation Electrician Supervisor Name | Role | Phone | + +------+ + PCP | Unavailable | + +------+ + Encounter Details +--------+ + + + + | Date | Type | Department | Care Team | Description | +--------+ + + + + | 09/13/ | Hospital | [facility] | Rashel Mcdonald, | | | 2005 | Encounter | MED CTR LABORATORY | [address] | | | | | [address] | [place] | | | | | [place] | [address] | | | | | [address] | | | | | | [phone] | | | +--------+ + + + [...]
--- OUTSIDE RECORDS SUMMARY | ~2019-03-29 | XMS | Encounter Summary ---
Demographics + + + | Address | [address] | | | [place] [address] | + + + | Home Phone [...] | Author | [facility] | | | and Chayana | + + + | Organization | [facility] | | | and [...] Providers + +------+ + | Care Director Electronics Name | Role | Phone | + +------+ + PCP | Unavailable | + +------+ + Encounter Details +--------+ + + + + | Date | Type | Department | Care Team | Description | +--------+ + + + + | 07/31/ | Hospital | [facility] | Rashel Mcdonald, | | | 2005 | Encounter | MED CTR XRAY [address] | [address] | | | | | [place] | [place] | | | | | [place] [address] | [address] | | | | | [phone] | | | +--------+ + + + [...]
--- OUTSIDE RECORDS SUMMARY | ~2019-03-29 | XMS | Encounter Summary ---
Demographics + + + | Address | [address] | | | [place] [address] | + + + | Home Phone [...] + | Author | [facility] | | | and Chayana | + + + | Organization | [facility] | | | [...] Team Providers + +------+ + | Care Bark Tanner Name | Role | Phone | + +------+ + PCP | Unavailable | + +------+ + Encounter Details +--------+ + + + + | Date | Type | Department | Care Team | Description | +--------+ + + + + | 02/08/ | Hospital | [facility] | Jigar Perez, | | | 2005 - | Encounter | MED CTR MED ONC | [address] | | | | | [address] | [place] | | | 02/09/ | | [place] [address] | [address] | | | 2005 | | [phone] | | | +--------+ + + + [...]
--- OUTSIDE RECORDS SUMMARY | ~2019-03-29 | XMS | Encounter Summary ---
Demographics + + + | Address | [address] | | | [place] [address] | + + + | Home Phone [...] Author | [facility] | | | and [place]ayana | + + + | Organization | [facility] | | | and [...] Team Providers + +------+ + | Care Crew Caller Name | Role | Phone | + [...] + + | 07/14/ | Office | [facility] | Renetta Falk | Scabies (Primary Dx) | | 2012 | Visit | CONVENIENT CARE [address] | MD Yvonne [address] | | | | | [facility] | [address] [facility] | | | | | [facility] [place] | [place] [address] | | | | | [address] | [phone] | | | | | [phone] | | | +--------+---------+ + + + [...] by scratching (the sores may become infected). [place] created by mites traveling under the skin, [...] after treatment. Skin is crusty or scaly. 7657-0612 [facility], [address] [place] [address], [place] [address]. All rights reserve d. This information is [...] Vital signs as noted, nursing notes reviewed. Awbrkvb-zibf-ztebhbfxo alert male in no apparent distress, pleasant [...] by scratching (the sores may become infected). [place] created by mites traveling under the skin, [...] after treatment. Skin is crusty or scaly. [address], [place] [address]. All rights reserve d. This information is [...]
--- OUTSIDE RECORDS SUMMARY | ~2019-03-29 | XMS | Encounter Summary ---
Demographics + + + | Address | [address] | | | [place] [address] | + + + | Home Phone | | + + + | Preferred Language | Unknown | + + + | Marital Status | Single | + + + | Advent Affiliation | 1041 | + + + | Race | Unknown | + + + | Ethnic Group | Unknown | + + + Author + + + | Author | [facility] | | | and Chayana | + + + | Organization | [facility] | | | and [place] [...] Providers + +------+ + | Care Medical Office Secretary Name | Role | Phone | + +------+ + PCP | Unavailable | + +------+ + Encounter Details +--------+ + + + + | Date | Type | Department | Care Team | Description | +--------+ + + + + | 01/23/ | Hospital | [facility] | | | | 2005 - | Encounter | MED CTR EMERGENCY | | | | | | [place] [address] | | | | 01/24/ | | [place] | | | | 2005 | | [address] | | | | | | [phone] | | | +--------+ + + + [...]
--- OUTSIDE RECORDS SUMMARY | ~2019-03-29 | XMS | Encounter Summary ---
Demographics + + + | Address | [address] | | | [place] [address] | + + + | Home Phone [...] | Author | [facility] | | | and Chayana | + + + | Organization | [facility] | [...] Team Providers + +------+ + | Care Delivery Director Name | Role | Phone | + +------+ + PCP | Unavailable | + +------+ + Encounter Details +--------+ + + + + | Date | Type | Department | Care Team | Description | +--------+ + + + + | 07/24/ | Hospital | [facility] | | | | 2005 | Encounter | MED CTR LABORATORY | | | | | | [address] | | | | | | [place] | | | | | | [address] | | | | | | [phone] | | | +--------+ + + + [...]
--- OUTSIDE RECORDS SUMMARY | ~2019-03-29 | XMS | Encounter Summary ---
Demographics + + + | Address | [address] | | | [place] [address] | + + + | Home Phone [...] | Author | [facility] | | | and [place]ayana | + + + | Organization | [facility] [...] Team Providers + +------+ + | Care Crystal Evaluator Name | Role | Phone | + +------+ + | Yovani Alonso MD | PCP | | + +------+ + Encounter Details +--------+ + + + + | Date | Type | Department | Care Team | Description | +--------+ + + + + | 10/10/ | [facility] | [facility] | Jw Joseph MD | | | 2012 | Encounter | MED CTR MP INTRA OP | [address], [place] | | | | | [address] | [address] [place] | | | | | [place] | [address] | | | | | [address] | | | | | | [phone] | | | +--------+ + + + [...] | + +--------+ + + + | OCCULT BLOOD, STOOL, | Routin | 10/10/2012 | | Results for this | | FOR COLORECTAL | e | 12:13 PM | | procedure are in the | | NEOPLASM SCREENING | | PDT | | results section. | + +--------+ + + + | OCCULT BLOOD, STOOL, | Routin | 10/10/2012 | | Results for this | | FOR COLORECTAL | e | 12:13 PM | | procedure are in the | | NEOPLASM SCREENING | | PDT | | results section. | + +--------+ + + + | OVA AND PARASITE | Routin | 10/10/2012 | | Results for this | | EXAMINATION | e | 12:13 PM | | procedure are in the | | | | PDT | | results section. | + +--------+ + + + | CRYPTOSPORIDIUM AG | Routin | 10/10/2012 | | Results for this | | | e | 12:13 PM | | procedure are in the | | | | PDT | | results section. | + +--------+ + + + | FECAL LEUKOCYTES | Routin | 10/10/2012 | | Results for this | | | e | 12:13 PM | | procedure are in the | | | | PDT | | results section. | + +--------+ + + + | FECAL LEUKOCYTES | Routin | 10/10/2012 | | Results for this | | | e | 12:13 PM | | procedure are in the | | | | PDT | | results section. | + +--------+ + + + | GIARDIA AG, EIA, | Routin | 10/10/2012 | | Results for this | | STOOL | e | 12:13 PM | | procedure are in the | | | | PDT | | results section. | + +--------+ + + + | CLOSTRIDIUM | Routin | 10/10/2012 | | Results for this | | DIFFICILE TOXIN | e | 12:13 PM | | procedure are in the | | | | PDT | | results section. | + +--------+ + + + | CLOSTRIDIUM | Routin | 10/10/2012 | | Results for this | | DIFFICILE TOXIN | e | 12:13 PM | | procedure are in the | | | | PDT | | results section. | + +--------+ + + + | CULTURE, STOOL | Routin | 10/10/2012 | | Results for this | | | e | 12:13 PM | | procedure are in the | | | | PDT | | results section. | + +--------+ + + + documented in this encounter Results Clostridium difficile Toxin (10/10/2012 12:13 PM PDT) + + + + + + | Component | Value | Ref Range | Performed | Pathologist | | | | | At | Signature | + + + + + + | C difficile | CLOSTRIDIUM DIFFICILE | | [facility] | | | Toxins | Toxin detected byRapid | | [facility] | | | A+B, EIA | Immunoassay testing.Once | | MEDICAL | | | | a C. diff is positive | | CENTER - | | | | during a diarrheal | | LABORATORY | | | | illness, there is no | | | | | | added value in repeat | | | | | | testing. Test of cure is | | | | | | not recommended because | | | | | | asymptomatic patients | | | | | | may remainpositive for | | | | | | weeks to months and not | | | | | | need | | | | | | treatment.POSITIVECommen | | | | | | t: PHONED REPORT TO | | | | | | TIERRA 10/10/12 @ | | | | | | 1245 by RUTH ANNBE | | | | + + + + + + + + | Specimen | + + | | + + + + + + + | Performing | Address | City/State/Zipcode | Phone Number | | Organization | | | | + + + + + | [facility] | [address] | [place] | [phone] | | [facility] | | [address] | | | - LABORATORY | | | | + + + + + | [facility] | [address] | [place] | | | [facility] | | [address] | | | - LABORATORY | | | | + + + + + Occult Blood, Stool, 1-3 Specimen(s) (10/10/2012 12:13 PM PDT) + + + + + + | Component | Value | Ref Range | Performed | Pathologist | | | | | At | Signature | + + + + + + | FECAL | 10/10/12 | | [facility] | | | OCCULT BLD | Negative | | [facility] | | | [...] + | [facility] | [address] | [place], [place] | [phone] | | [facility] | | [address] | | | - LABORATORY | | | | + + + + + | [facility] | [address] | [place], [place] | | | [facility] | | [address] | | | - LABORATORY | | | | + + + + + Fecal leukocytes (10/10/2012 12:13 PM PDT) + + + + + + | Component | Value | Ref Range | Performed | Pathologist | | | | | At | Signature | + + + + + + | Source | STOOL | | [facility] | | | | | | [facility] | | | | | | MEDICAL | | | | | | CENTER - | | | | | | LABORATORY | | + + + + + + | Fecal | NONE SEEN | | [facility] | | | Leukocytes | | | [facility] | | [...] + | [facility] | [address] | [place], [place] | [phone] | | [facility] | | [address] | | | - LABORATORY | | | | + + + + + | [facility] | [address] | [place], [place] | | | [facility] | | [address] | | | - LABORATORY | | | | + + + + + Clostridium difficile Toxin (10/10/2012 12:13 PM PDT) + + + + + + | Component | Value | Ref Range | Performed | Pathologist | | | | | At | Signature | + + + + + + | C difficile | PHONED REPORT TO | | [facility] | | | Toxins | JUAREZ/RAMSES 10/10/12 @ | | [facility] | | | A+B, EIA | [address] by FLIPBE | | MEDICAL | | | | CLOSTRIDIUM DIFFICILE | | CENTER - | | | | Toxin detected by Rapid | | LABORATORY | | | | Immunoassay testing. | | | | | | Once a C. diff is | | | | | | positive during a | | | | | | diarrheal illness, | | | | | | there is no added value | | | | | | in repeat testing. Test | | | | | | of cure is not | | | | | | recommended because | | | | | | asymptomatic patients | | | | | | may remain positive for | | | | | | weeks to months and not | | | | | | need | | | | | | treatment.RESULT:POSITIV | | | | | | E | | | | + + + + + + + + | Specimen | + + | Other - Other | + + + + + + + | Performing | Address | City/State/[facility] | Phone Number | | Organization | | | | + + + + + | [facility] | [address] | [place], [place] | [phone] | | [facility] | | [address] | | | - LABORATORY | | | | + + + + + | [facility] | [address] | [place], [place] | | | [facility] | | [address] | | | - LABORATORY | | | | + + + + + Ova and Parasite Examination (10/10/2012 12:13 PM PDT) + + + + + + | Component | Value | Ref Range | Performed | Pathologist | | | | | At | Signature | + + + + + + | Ova + | SEE BELOWComment: | | [facility] | | | Parasite | Accession No. | | [facility] | | | Exam | [id number] Source | | MEDICAL | | | | StoolResult CONCENTRATED | | CENTER - | | | | WET MOUNT: No OVA or | | LABORATORY | | | | Parasites SeenTRICHROME | | | | | | STAIN: No OVA or | | | | | | Parasites Seen Testing | | | | | | Performed: [facility] | | | | | | [facility] | | | | | | [address] | | | | | | [place] [address] | | | | | | CLIA: [id number] | | | | + + + + + + | Specimen | SEE BELOWComment: Report | | [facility] | | | Status | Status Final | | [facility] | | | | 10/11/2012Testing | | MEDICAL | | | | Performed: [facility] | | [facility] | | | | [facility] | | LABORATORY | | | | [address], | | | | | | [place] [address] | | | | | | CLIA: [id number] | | | | + + + + + + + + | Specimen | + + | Other - Other | + + + + + + + | Performing | Address | City/State/Zipcode | Phone Number | | Organization | | | | + + + + + | [facility] | [address] | [place], [place] | [phone] | | [facility] | | [address] | | | - LABORATORY | | | | + + + + + | [facility] | [address] | [place], [place] | | | [facility] | | [address] | | | - LABORATORY | | | | + + + + + Occult Blood, Stool, 1-3 Specimen(s) (10/10/2012 12:13 PM PDT) + + + + + + | Component | Value | Ref Range | Performed | Pathologist | | | | | At | Signature | + + + + + + | FECAL | Date: | | [facility] | | | OCCULT BLD | 10/10/12 | | [facility] | | | | Card #1 Occult Blood: | | MEDICAL | | | | Negative | | CENTER - | | | | | | LABORATORY | | + + + + + + + + | Specimen | + + | Other - Other | + + + + + + + | Performing | Address | City/State/Zipcode | Phone Number | | Organization | | | | + + + + + | [facility] | [address] | [place] | [phone] | | [facility] | | [address] | | | - LABORATORY | | | | + + + + + | [facility] | [address] | [place] | | | [facility] | | [address] | | | - LABORATORY | | | | + + + + + Cryptosporidium Ag (10/10/2012 12:13 PM PDT) + + + + + + | Component | Value | Ref Range | Performed | Pathologist | | | | | At | Signature | + + + + + + | Cryptospori | Negative for | | [facility] | | | dium | Cryptosporidium Antigen | | [facility] | | | Antigen | by Rapid Immunoassay | | MEDICAL | | | | testing. | | CENTER - | | | | | | LABORATORY | | + + + + + + + + | Specimen | + + | Other - Other | + + + + + + + | Performing | Address | City/State/Zipcode | Phone Number | | Organization | | | | + + + + + | [facility] | [address] | [place] | [phone] | | [facility] | | [address] | | | - LABORATORY | | | | + + + + + | [facility] | [address] | [place] | | | [facility] | | [address] | | | - LABORATORY | | | | + + + + + Giardia Ag, EIA, Stool (10/10/2012 12:13 PM PDT) + + + + + + | Component | Value | Ref Range | Performed | Pathologist | | | | | At | Signature | + + + + + + | Giardia | Negative for Giardia | | [facility] | | | Antigen, | Lamblia Antigen by Rapid | | [facility] | | | Stool | Immunoassay. | | MEDICAL | | | |by Rapid Immunoassay. | | CENTER - | | | | | | LABORATORY | | + + + + + + + + | Specimen | + + | Other - Other | + + + + + + + | Performing | Address | City/State/Zipcode | Phone Number | | Organization | | | | + + + + + | [facility] | [address] | [place], [place] | [phone] | | [facility] | | [address] | | | - LABORATORY | | | | + + + + + | [facility] | [address] | [place], [place] | | | [facility] | | [address] | | | - LABORATORY | | | | + + + + + Culture, Stool (10/10/2012 12:13 PM PDT) + + + + + -+ | Component | Value | Ref Range | Performed | Pathologist | | | | | At | Signature | + + + + + -+ | Gram Stain | GRAM STAIN:NO WBC | | [facility] | | | Result | SEENREDUCED GRAM | | [facility] | | | | NEGATIVE FLORAREDUCED | | MEDICAL | | | | GRAM POSITIVE TANESHA | | CENTER - | | | | | | LABORATORY | | + + + + + -+ | Culture, | Indig/Tanesha | | [facility] | | | stool | (Reportable)Many Mixed | | [facility] | | | | Indigenous Tanesha No | | MEDICAL | | | | Salmonella, Shigella, | | CENTER - | | | | Aeromonas, Pleisiomonas | | LABORATORY | | | | or Yersinia | | | | | | isolated.Final Report | | | | | | (Reportable)- | | | | + + + + + -+ | E coli, | Negative for Shiga | | [facility] | | | Shiga toxin | Toxin-producing strain | | [facility] | | | Assay | of Escherichia coli | | MEDICAL | | | | (STEC). Physician Note: | | CENTER - | | | | Symptoms of STEC are not | | LABORATORY | | | | well differentiated and | | | | | | may resemble | | | | | | Appendicitis, | | | | | | Inflammatory Bowel | | | | | | Disease, Infectious | | | | | | Colitis, and C. | | | | | | Difficile Associated | | | | | | Disease.RESULT:NEGATIVE | | | | | |and C. Difficile Associated Disease. | | | | | |RESULT: | | | | | |NEGATIVE | | | | + + + + + -+ | Campylobact | Negative for | | [facility] | | | er Ag | CAMPYLOBACTER | | [facility] | | | | SPECIES.RESULT:NEGATIVE | | MEDICAL | | | |NEGATIVE | | CENTER - | | | | | | LABORATORY | | + + + + + -+ + + | Specimen | + + | Other - Other | + + + + + + + | Performing | Address | City/State/Zipcode | Phone Number | | Organization | | | | + + + + + | [facility] | [address] | [place], [place] | [phone] | | [facility] | | [address] | | | - LABORATORY | | | | + + + + + | [facility] | [address] | [place], [place] | | | [facility] | | [address] | | | - LABORATORY | | | | + + + + + Fecal leukocytes (10/10/2012 12:13 PM PDT) + + + + + + | Component | Value | Ref Range | Performed | Pathologist | | | | | At | Signature | + + + + + + | Source | STOOL | | [facility] | | | | | | [facility] | | | | | | MEDICAL | | | | | | CENTER - | | | | | | LABORATORY | | + + + + + + | Fecal | NONE SEEN | | [facility] | | | Leukocytes | | | [facility] | | | | | | MEDICAL | | | | | | CENTER - | | | | | | LABORATORY | | + + + + + + + + | Specimen | + + | | + + + + + | Narrative | Performed At | + + + | LIQUID STOOL FROM ENDO | [facility] | | | [facility] | | | [facility] | | | - LABORATORY | + + + + + + + + | Performing | Address | City/State/Zipcode | Phone Number | | Organization | | | | + + + + + | [facility] | [address] | [place] | [phone] | | [facility] | | [address] | | | - LABORATORY | | | | + + + + + | [facility] | [address] | [place] | | | [facility] | | [address] | | | - LABORATORY | | | | + + + + + documented in this encounter Visit Diagnoses Not on filedocumented in this encounter"
--- OUTSIDE RECORDS SUMMARY | ~2019-03-29 | XMS | Encounter Summary ---
Demographics + + + | Address | [address] | | | [place] [address] | + + + | Home Phone [...] + + + | Author | [facility] | | | and [place] | + + + | Organization | [facility] | | | and [place] | + + + | Address | Unknown | + + + | Phone | Unavailable | + + + Support + + +---------+ + | Name | Relationship | Address | Phone | + + +---------+ + | [employer] | ECON | Unknown | | + + +---------+ + Care Team Providers + +------+ + | Care Snaker Driving Horses Name | Role | Phone | + +------+ + PCP | Unavailable | + +------+ + Encounter Details +--------+ + + + + | Date | Type | Department | Care Team | Description | +--------+ + + + + | 07/05/ | [facility] | [facility] | César Newell | | | 2007 | Encounter | MED CTR EMERGENCY | MD Theo [address] | | | | | CENTER [address] | [facility] | | | | | [place] | [place] [address] | | | | | [address] | [phone] | | | | | [phone] | | | +--------+ + + + [...]
--- OUTSIDE RECORDS SUMMARY | ~2019-03-29 | XMS | Encounter Summary ---
Demographics + + + | Address | [address] | | | [place] [address] | + + + | Home Phone [...] | Author | [facility] | | | and [place] | + + + | Organization | [facility] | | | and [...] Team Providers + +------+ + | Care Electrical Mechanic Name | Role | Phone | + +------+ + PCP | Unavailable | + +------+ + Encounter Details +--------+ + + + + | Date | Type | Department | Care Team | Description | +--------+ + + + + | 11/12/ | Hospital | [facility] | | | | 2008 | Encounter | MED CTR EMERGENCY | | | | | | CENTER [address] | | | | | | [place] | | | | | | [address] | | | | | | [phone] | | | +--------+ + + + [...]
--- OUTSIDE RECORDS SUMMARY | ~2019-03-29 | XMS | Encounter Summary ---
Demographics + + + | Address | [address] | | | [place] [address] | + + + | Home Phone [...] Author | [facility] | | | and [place] | + + + | Organization | [facility] | [...] Team Providers + +------+ + | Care Perinatal Director Name | Role | Phone | + +------+ + PCP | Unavailable | + +------+ + Encounter Details +--------+ + + + + | Date | Type | Department | Care Team | Description | +--------+ + + + + | 06/25/ | Hospital | [facility] | Jarod Chaves | | | 2009 | Encounter | MED CTR EMERGENCY | MD Curt [address] | | | | | CENTER [address] | [facility] | | | | | [place], [place] | [facility] [place] [address] | | | | | [address] | [phone] | | | | | [phone] | | | +--------+ + + + [...]
--- OUTSIDE RECORDS SUMMARY | ~2019-03-29 | XMS | Encounter Summary ---
Demographics + + + | Address | [address] | | | [place] [address] | + + + | Home Phone | | + + + | Preferred Language | Unknown | + + + | Marital Status | Single | + + + | Evangelical Affiliation | 1041 | + + + | Race | Unknown | + + + | Ethnic Group | Unknown | + + + Author + + + | Author | [facility] | | | and [place] | + + + | Organization | [facility] | [...] Team Providers + +------+ + | Care Adjunct Teacher Name | Role | Phone | [...] + + | 05/03/ | Office | [facility] | Russel Chiang | Essential | | 2015 | Visit | CARDIOLOGY [address] | MD Juice [address] | hypertension | | | | [place], | [address] [place] | (Primary Dx) | | | | [place] [address] | [place] [address] | | | | | [phone] | [phone] | | | | | | | [...] sleep well. He does not regularly ch yuid his blood pressure. He denies any known [...] pneumonia possibly PCP Kidney stone surgery x2, [facility] Family History Problem Relation Age [...] at least 3. No one is at [facility] to observe him sleep. He has not been told of snoring in the past. 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 Electronically signed by: Andrez Chiang MD PhD [facility] 05/03/2014 documented in t his encounter Plan of Treatment Not on filedocumented as of this encounter Visit Diagnoses + + | Diagnosis | + + | Essential hypertension - Primary Unspecified essential hypertension | + + documented in this encounter
--- OUTSIDE RECORDS SUMMARY | ~2019-03-29 | XMS | Encounter Summary ---
Demographics + + + | Address | [address] | | | [place] [address] | + + + | Home Phone [...] + | Author | [facility] | | | and [place] | + + + | Organization | [facility] | | | and [...] + +------+ + | Care Vice President Diversity Name | Role | Phone | + +------+ + PCP | Unavailable | + +------+ + Encounter Details +--------+ + + + + | Date | Type | Department | Care Team | Description | +--------+ + + + + | 11/21/ | Hospital | [facility] | Jessica Dunn | | | 2006 | Encounter | MED CTR EMERGENCY | Caren Mejia MD [address] | | | | | [address] | [facility] | | | | | [place] | [place] [address] | | | | | [address] | [phone] | | | | | [phone] | | | +--------+ + + + [...]
--- OUTSIDE RECORDS SUMMARY | ~2019-03-29 | XMS | Encounter Summary ---
Demographics + + + | Address | [address] | | | [place] [address] | + + + | Home Phone [...] | Author | [facility] | | | and [place] | + + + | Organization | [facility] [...] Team Providers + +------+ + | Care Value Engineer Name | Role | Phone | [...] + + | 07/01/ | Office | [facility] | Russel Chiang | Essential | | 2015 | Visit | CARDIOLOGY [address] | MD Juice [address] | hypertension | | | | [place], | [address] [place] | (Primary Dx) | | | | [place] [address] | [place] [address] | | | | | [phone] | | | | | | | [...] pneumonia possibly PCP Kidney stone surgery x2, [facility] Family History Problem Relation Age [...] at least 4. No one is at [facility] to observe him sleep. He has not been told of snoring in the past. 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 Electronically signed by: Andrez Chiang MD PhD [facility] 07/01/2014 documented in t his encounter Plan of Treatment Not on filedocumented as of this encounter Visit Diagnoses + + | Diagnosis | + + | Essential hypertension - Primary Unspecified essential hypertension | + + documented in this encounter
--- OUTSIDE RECORDS SUMMARY | ~2019-03-29 | XMS | Encounter Summary ---
Demographics + + + | Address | [address] | | | [place] [address] | + + + | Home Phone [...] | Author | [facility] | | | and [place] | + + + | Organization | [facility] [...] Team Providers + +------+ + | Care Rand Cementer Name | Role | Phone | + +------+ + | Yovani Alonso MD | PCP | | + +------+ + Encounter Details +--------+ + + + + | Date | Type | Department | Care Team | Description | +--------+ + + + + | 07/11/ | Hospital | [facility] | Yovani Alonso MD | | | 2012 | Encounter | MED CTR LABORATORY | [address] [facility] | | | | | [address] | [place] | | | | | [place] | [address] | | | | | [address] | | | | | | [phone] | | | +--------+ + + + [...]
--- OUTSIDE RECORDS SUMMARY | ~2019-03-29 | XMS | Encounter Summary ---
Demographics + + + | Address | [address] | | | [place] [address] | + + + | Home Phone [...] | Author | [facility] | | | and [place]ay[place] | + + + | Organization | [facility] | [...] Team Providers + +------+ + | Care Lieutenant Firefighter Name | Role | Phone | + +------+ + PCP | Unavailable | + +------+ + Encounter Details +--------+ + + + + | Date | Type | Department | Care Team | Description | +--------+ + + + + | 02/21/ | Hospital | [facility] | | | | 2006 | Encounter | MED CTR EMERGENCY | | | | | | CENTER [address] | | | | | | [place] | | | | | | [address] | | | | | | [phone] | | | +--------+ + + + [...]
--- OUTSIDE RECORDS SUMMARY | ~2019-03-29 | XMS | Encounter Summary ---
Demographics + + + | Address | [address] | | | [place] [address] | + + + | Home Phone [...] + | Author | [facility] | | | and [place] | + + + | Organization | [facility] | [...] Team Providers + +------+ + | Care Lye Treater Name | Role | Phone | + +------+ + PCP | Unavailable | + +------+ + Encounter Details +--------+ + + + + | Date | Type | Department | Care Team | Description | +--------+ + + + + | 01/29/ | Hospital | [facility] | | | | 2006 | Encounter | MED CTR EMERGENCY | | | | | | CENTER [address] | | | | | | [place] | | | | | | [address] | | | | | | [phone] | | | +--------+ + + + [...]
--- OUTSIDE RECORDS SUMMARY | ~2019-03-29 | XMS | Encounter Summary ---
Demographics + + + | Address | [address] | | | [place] [address] | + + + | Home Phone [...] | Author | [facility] | | | and [place]ay[place] | + + + | Organization | [facility] | | [...] Providers + +------+ + | Care Manager Area Name | Role | Phone | + +------+ + PCP | Unavailable | + +------+ + Encounter Details +--------+ + + + + | Date | Type | Department | Care Team | Description | +--------+ + + + + | 09/07/ | Hospital | [facility] | [place], | | | 2009 | Encounter | MED CTR EMERGENCY | Noel Tolliver MD [address] | | | | | CENTER [address] | [facility] | | | | | [place] | [place] [address] | | | | | [address] | [phone] | | | | | [phone] | | | +--------+ + + + [...]
--- OUTSIDE RECORDS SUMMARY | ~2019-03-29 | XMS | Encounter Summary ---
Demographics + + + | Address | [address] | | | [place] [address] | + + + | Home Phone [...] | Author | [facility] | | | and Chayana | + + + | Organization | [facility] | | [...] Team Providers + +------+ + | Care Pharmacy Services Director Name | Role | Phone | [...] Medicine | JAG | Ubaldo Hirsch | [place] [address] | | | Required | | (obstructive | MD [address] | | | | | sleep | Jaime Funez | [place], | | | | | apnea) | [address] [place] | [place] [address] | | | | | Organic | [place], [place] | Phone: | | | | | insomnia | [phone] | [phone] | | | | | Sleepiness | Phone: | Fax: | | | | | Essential | [phone] | [phone] | | | | | hypertension | Fax: | | | | | | Procedures | [phone] | | | | | | [place] [...] + + | 04/21/ | Hospital | [facility] | Ubaldo Xie | JAG (obstructive | | 2014 | Encounter | MED CTR SLEEP | MD [address] | sleep apnea) | | | | CENTER [address] | [address] [place] | (Primary Dx); | | | | [place], [place] | [place] [address] | Organic insomnia; | | | | [address] | [phone] | Sleepiness; | | | | [phone] | | Essential | | | | [...]
--- OUTSIDE RECORDS SUMMARY | ~2019-03-29 | XMS | Encounter Summary ---
Demographics + + + | Address | [address] | | | [place] [address] | + + + | Home Phone [...] | Author | [facility] | | | and Chayana | + + + | Organization | [facility] | | | and [place]ay[place] [...] Team Providers + +------+ + | Care Manganese Wheeler Name | Role | Phone | + +------+ + PCP | Unavailable | + +------+ + Encounter Details +--------+ + + + + | Date | Type | Department | Care Team | Description | +--------+ + + + + | 08/08/ | Hospital | [facility] | | | | 2005 | Encounter | MED CTR LABORATORY | | | | | | [address] | | | | | | [place] | | | | | | [address] | | | | | | [phone] | | | +--------+ + + + [...]
--- OUTSIDE RECORDS SUMMARY | ~2019-03-29 | XMS | Encounter Summary ---
Demographics + + + | Address | [address] | | | [place] [address] | + + + | Home Phone [...] | Author | [facility] | | | and Chayana | + + + | Organization | [facility] | | [...] Team Providers + +------+ + | Care Defense Travel Administrator Name | Role | Phone | + +------+ + PCP | Unavailable | + +------+ + Encounter Details +--------+ + + + + | Date | Type | Department | Care Team | Description | +--------+ + + + + | 02/07/ | Hospital | [facility] | Renetta Falk | | | 2005 | Encounter | MED CTR XRAY [address] | MD Yvonne [address] | | | | | [place] | [address] [place] | | | | | [place] [address] | [place] [address] | | | | | [phone] | [phone] | | | | | | | [...]
--- OUTSIDE RECORDS SUMMARY | ~2019-03-29 | XMS | Encounter Summary ---
Demographics + + + | Address | [address] | | | [place] [address] | + + + | Home Phone | | + + + | Preferred Language | Unknown | + + + | Marital Status | Single | + + + | Lutheran Affiliation | 1041 | + + + | Race | Unknown | + + + | Ethnic Group | Unknown | + + + Author + + + | Author | [facility] | | | and [place]ayana | + + + | Organization | [facility] [...] Team Providers + +------+ + | Care Camera Repairer Name | Role | Phone | + +------+ + | Yovani Alonso MD | PCP | | + +------+ + Encounter Details +--------+ + + + + | Date | Type | Department | Care Team | Description | +--------+ + + + + | 10/10/ | [facility] | [facility] | Jw Joseph MD | | | 2012 | Encounter | MED CTR MP INTRA OP | [address], [place] | | | | | [address] | [address] [place] | | | | | [place] | [address] | | | | | [address] | | | | | | [phone] | | | +--------+ + + + [...] [address] | [place] | [phone] | | [facility] | | [address] | | | - LABORATORY | | | | + + + + + | [facility] | [address] | [place] | | | [facility] | | [address] | | | - LABORATORY | | [...] + | [facility] | [address] | [place], [place] | [phone] | | [facility] | | [address] | | | - LABORATORY | | | | + + + + + | [facility] | [address] | [place], [place] | | | [facility] | | [address] | | | - LABORATORY | | [...] + | [facility] | [address] | [place], [place] | [phone] | | [facility] | | [address] | | | - LABORATORY | | | | + + + + + | [facility] | [address] | [place], [place] | | | [facility] | | [address] | | | - LABORATORY | | [...] + + | Performing | Address | City/State/[facility] | Phone Number | | Organization | | | | + + + + + | [facility] | [address] | [place], [place] | [phone] | | [facility] | | [address] | | | - LABORATORY | | | | + + + + + | [facility] | [address] | [place], [place] | | | [facility] | | [address] | | | - LABORATORY | | [...] [facility] | | | Exam | [id number] Source | | MEDICAL | | | | StoolResult CONCENTRATED | | CENTER - | | | | WET MOUNT: No OVA or | | LABORATORY | | | | Parasites SeenTRICHROME | | | | | | STAIN: No OVA or | | | | | | Parasites Seen Testing | | | | | | Performed: [place] | | | | | | [facility] | | | | | | [place],[address], | | | | | | [place] [address] | | | | | | CLIA: [id number] | | | | + + + + + + | Specimen | SEE BELOWComment: Report | | [facility] | | | Status | Status Final | | [facility] | | | | 10/11/2012Testing | | MEDICAL | | | | Performed: [place] | | [facility] - | | | | [facility] | | LABORATORY | | | | [place],[address], | | | | | | [place] [address] | | | | | | CLIA: [id number] | | | | + + + + + + + + | Specimen | + + | Other - Other | + + + + + + + | Performing | Address | City/State/Zipcode | Phone Number | | Organization | | | | + + + + + | [facility] | [address] | [place], [place] | [phone] | | [facility] | | [address] | | | - LABORATORY | | | | + + + + + | [facility] | [address] | [place], [place] | | | [facility] | | [address] | | | - LABORATORY | | [...] + | [facility] | [address] | [place] | [phone] | | [facility] | | [address] | | | - LABORATORY | | | | + + + + + | [facility] | [address] | [place] | | | [facility] | | [address] | | | - LABORATORY | | [...] dium | Cryptosporidium Antigen | | [facility] | | | Antigen | by Rapid [...] [address] | [place] | [phone] | | [facility] | | [address] | | | - LABORATORY | | | | + + + + + | [facility] | [address] | [place] | | | [facility] | | [address] | | | - LABORATORY | | [...] Lamblia Antigen by Rapid | | [facility] | | | Stool | Immunoassay. | [...] + | [facility] | [address] | [place], [place] | [phone] | | [facility] | | [address] | | | - LABORATORY | | | | + + + + + | [facility] | [address] | [place], [place] | | | [facility] | | [address] | | | - LABORATORY | | [...] + | [facility] | [address] | [place], [place] | [phone] | | [facility] | | [address] | | | - LABORATORY | | | | + + + + + | [facility] | [address] | [place], [place] | | | [facility] | | [address] | | | - LABORATORY | | [...] | | [facility] | | | [facility] | | | - LABORATORY | + + + + + + + + | Performing | Address | City/State/Zipcode | Phone Number | | Organization | | | | + + + + + | [facility] | [address] | [place] | [phone] | | [facility] | | [address] | | | - LABORATORY | | | | + + + + + | [facility] | [address] | [place] | | | [facility] | | [address] | | | - LABORATORY | | | | + + + + + documented in this encounter Visit Diagnoses Not on filedocumented in this encounter"
--- OUTSIDE RECORDS SUMMARY | ~2019-03-29 | XMS | Encounter Summary ---
Demographics + + + | Address | [address] | | | [place] [address] | + + + | Home Phone [...] + | Author | [facility] | | | and [place]ayana | + + + | Organization | [facility] | [...] Providers + +------+ + | Care Sales Data Analyst Name | Role | Phone | + +------+ + PCP | Unavailable | + +------+ + Encounter Details +--------+ + + + + | Date | Type | Department | Care Team | Description | +--------+ + + + + | 02/04/ | Hospital | [facility] | | | | 2005 | Encounter | MED CTR EMERGENCY | | | | | | CENTER [address] | | | | | | [place] | | | | | | [address] | | | | | | [phone] | | | +--------+ + + + [...]
--- OUTSIDE RECORDS SUMMARY | ~2019-03-29 | XMS | Encounter Summary ---
Demographics + + + | Address | [address] | | | [place] [address] | + + + | Home Phone [...] | Author | [facility] | | | and [place]ayana | + + + | Organization | [facility] | | | [...] Team Providers + +------+ + | Care Fish Hatchery Manager Name | Role | Phone | [...] | | GASTROENTEROLOGY | MD [address] [place] | | | | | [address] [place] | [address] [place], | | | | | [address] [place], [place] | [place] [address] | | | | | [address] | [phone] | | | | | [phone] | | | +--------+ + + + [...]
--- OUTSIDE RECORDS SUMMARY | ~2019-03-29 | XMS | Encounter Summary ---
Demographics + + + | Address | [address] | | | [place] [address] | + + + | Home Phone [...] | Author | [facility] | | | and Chayana | + + + | Organization | [facility] | | | and [...] Team Providers + +------+ + | Care Tool And Die Maker Level Five Name | Role | Phone | + +------+ + PCP | Unavailable | + +------+ + Encounter Details +--------+ + + + + | Date | Type | Department | Care Team | Description | +--------+ + + + + | 02/11/ | Hospital | [facility] | Jessica Dunn | | | 2005 | Encounter | MED CTR EMERGENCY | Caren Mejia MD [address] | | | | | [address] | [facility] | | | | | [place] | [place] [address] | | | | | [address] | [phone] | | | | | [phone] | | | +--------+ + + + [...]
--- OUTSIDE RECORDS SUMMARY | ~2019-03-29 | XMS | Encounter Summary ---
Demographics + + + | Address | [address] | | | [place] [address] | + + + | Home Phone [...] + | Author | [facility] | | | and [place]ayana | + + + | Organization | [facility] | | | and [place] [...] Providers + +------+ + | Care Cut File Clerk Name | Role | Phone | [...] + | 10/16/ | Telephone | [facility] | Sharlene Velázquez RN | Results | | 2012 | | GASTROENTEROLOGY | | | | | | [address] [facility] | | | | | | [address] [place] | | | | | | [address] | | | | | | [phone] | | | +--------+ + + + [...]
--- OUTSIDE RECORDS SUMMARY | ~2019-03-29 | XMS | Encounter Summary ---
Demographics + + + | Address | [address] | | | [place] [address] | + + + | Home Phone [...] Author | [facility] | | | and [place] | + + + | Organization | [facility] | | | and [place] [...] Team Providers + +------+ + | Care Fire Protection Specialist Name | Role | Phone | + +------+ + PCP | Unavailable | + +------+ + Encounter Details +--------+ + + + + | Date | Type | Department | Care Team | Description | +--------+ + + + + | 02/04/ | Hospital | [facility] | [place], | | | 2006 | Encounter | MED CTR EMERGENCY | Noel Tolliver MD [address] | | | | | CENTER [address] | [facility] | | | | | [place] | [facility] [place] [address] | | | | | [address] | [phone] | | | | | [phone] | | | +--------+ + + + [...]
--- OUTSIDE RECORDS SUMMARY | ~2019-03-29 | XMS | Encounter Summary ---
Demographics + + + | Address | [address] | | | [place] [address] | + + + | Home Phone [...] | Author | [facility] | | | and [place]ay[place] | + + + | Organization | [facility] | [...] Team Providers + +------+ + | Care Induction Brazer Name | Role | Phone | + +------+ + PCP | Unavailable | + +------+ + Encounter Details +--------+ + + + + | Date | Type | Department | Care Team | Description | +--------+ + + + + | 11/20/ | Hospital | [facility] | | | | 2005 | Encounter | MED CTR LABORATORY | | | | | | [address] | | | | | | [place] | | | | | | [address] | | | | | | [phone] | | | +--------+ + + + [...]
--- OUTSIDE RECORDS SUMMARY | ~2019-03-29 | XMS | Encounter Summary ---
Demographics + + + | Address | [address] | | | [place] [address] | + + + | Home Phone [...] Author | [facility] | | | and [place]ay[place] | + + + | Organization | [facility] [...] Team Providers + +------+ + | Care Wood Fence Installer Name | Role | Phone | + +------+ + PCP | Unavailable | + +------+ + Encounter Details +--------+ + + + + | Date | Type | Department | Care Team | Description | +--------+ + + + + | 07/25/ | Hospital | [facility] | Yovani Alonso MD | | | 2009 | Encounter | MED CTR GENERIC OP | [address] [facility] | | | | | CONV DEPT [address] | [place] | | | | | [place], | [id number] | | | | | [place] [address] | | | | | | [phone] | | | +--------+ + + + [...]
--- OUTSIDE RECORDS SUMMARY | ~2019-03-29 | XMS | Encounter Summary ---
Demographics + + + | Address | [address] | | | [place] [address] | + + + | Home Phone [...] Author | [facility] | | | and [place] | + + + | Organization | [facility] [...] Team Providers + +------+ + | Care Nuclear Medicine Pet Ct Technologist Name | Role | Phone | + +------+ + PCP | Unavailable | + +------+ + Encounter Details +--------+ + + + + | Date | Type | Department | Care Team | Description | +--------+ + + + + | 09/05/ | Hospital | [facility] | | | | 2009 | Encounter | MED CTR EMERGENCY | | | | | | CENTER [address] | | | | | | [place] | | | | | | [address] | | | | | | [phone] | | | +--------+ + + + [...]
--- OUTSIDE RECORDS SUMMARY | ~2019-03-29 | XMS | Encounter Summary ---
Demographics + + + | Address | [address] | | | [place] [address] | + + + | Home Phone [...] | Author | [facility] | | | and [place] | + + + | Organization | [facility] | | | and [...] Team Providers + +------+ + | Care Cardiology Physician Name | Role | Phone | + +------+ + PCP | Unavailable | + +------+ + Encounter Details +--------+ + + + + | Date | Type | Department | Care Team | Description | +--------+ + + + + | 01/06/ | Hospital | [facility] | [place], | | | 2006 | Encounter | MED CTR EMERGENCY | Noel Tolliver MD [address] | | | | | CENTER [address] | [facility] | | | | | [place] | [place] [address] | | | | | [address] | [phone] | | | | | [phone] | | | +--------+ + + + [...]
--- OUTSIDE RECORDS SUMMARY | ~2019-03-29 | XMS | Encounter Summary ---
Demographics + + + | Address | [address] | | | [place] [address] | + + + | Home Phone | | + + + | Preferred Language | Unknown | + + + | Marital Status | Single | + + + | Roman Catholic Affiliation | 1041 | + + + | Race | Unknown | + + + | Ethnic Group | Unknown | + + + Author + + + | Author | [facility] | | | and [place] | + + + | Organization | [facility] | | | and [place] [...] Team Providers + +------+ + | Care Occupational Health And Safety Officer Name | Role | Phone | + +------+ + PCP | Unavailable | + +------+ + Encounter Details +--------+ + + + + | Date | Type | Department | Care Team | Description | +--------+ + + + + | 01/09/ | Hospital | [facility] | | | | 2008 | Encounter | MED CTR EMERGENCY | | | | | | CENTER [address] | | | | | | [place] | | | | | | [address] | | | | | | [phone] | | | +--------+ + + + [...]
--- OUTSIDE RECORDS SUMMARY | ~2019-03-29 | XMS | Encounter Summary ---
Demographics + + + | Address | [address] | | | [place] [address] | + + + | Home Phone [...] Author | [facility] | | | and [place]ay[place] | + + + | Organization | [facility] | | | and [place]ana [...] Team Providers + +------+ + | Care Ecology Professor Name | Role | Phone | + +------+ + | Yovani Alonso MD | PCP | | + +------+ + Encounter Details +--------+ + + + + | Date | Type | Department | Care Team | Description | +--------+ + + + + | 08/29/ | Hospital | [facility] | Jessica Dunn | | | 2012 | Encounter | MED CTR EMERGENCY | Caren Mejia MD 834 | | | | | CENTER [address] | [facility] | | | | | [place] | [place] [address] | | | | | [address] | [phone] | | | | | [phone] | | | +--------+ + + + [...] | + +--------+ + + + | PTT | Routin | 08/29/2012 | | Results for this | | | e | 12:44 PM | | procedure are in the | | | | PDT | | results section. | + +--------+ + + + | PROTIME INR | Routin | 08/29/2012 | | Results for this | | | e | 12:44 PM | | procedure are in the | | | | PDT | | results section. | + +--------+ + + + | CBC WITH | Routin | 08/29/2012 | | Results for this | | DIFFERENTIAL | e | 12:44 PM | | procedure are in the | | | | PDT | | results section. | + +--------+ + + + | COMPREHENSIVE | Routin | 08/29/2012 | | Results for this | | METABOLIC PANEL | e | 12:44 PM | | procedure are in the | | | | PDT | | results section. | + +--------+ + + + documented in this encounter Results CBC with Differential (08/29/2012 12:44 PM PDT) + + + + + [...] + + + + | WBC | 9.4 | 4.0 - 11.0 K/uL | [facility] | | [facility] | [facility] | [facility] | | | | | | CENTER - | | | | | | LABORATORY | | + + + + + + | RBC | 3.83 (L) | 4.30 - 5.70 | [facility] | | | | | M/uL | [facility] | | | | | | MEDICAL | | | | | | CENTER - | | | | | | LABORATORY | | + + + + + + | Hemoglobin | 12.6 (L) | 13.5 - 18.0 | [facility] | | | | | gm/dL | [facility] | | | | | | MEDICAL | | | | | | CENTER - | | | | | | LABORATORY | | + + + + + + | Hematocrit | 38.1 (L) | 40.0 - 51.0 % | [facility] | | | | | [facility] | | | | | | MEDICAL | | | | | | CENTER - | | | | | | LABORATORY | | + + + + + + | MCV | 99.3 | 83.0 - 101.0 fL | [facility] | | | | | [facility] | | [facility] | | | MEDICAL | | | | | | CENTER - | | | | | | LABORATORY | | + + + + + + | MCH | 32.9 | 28.0 - 35.0 pg | [facility] | | | | | | [facility] | | | | | | MEDICAL | | | | | | CENTER - | | | | | | LABORATORY | | + + + + + + | MCHC | 33.1 | 32.0 - 36.0 | [facility] | | | | | g/dL | [facility] | | | | | | MEDICAL | | | | | | CENTER - | | | | | | LABORATORY | | + + + + + + | RDW-CV | 13.5 | <15.0 % | [facility] | | | | | | [facility] | | | | | | MEDICAL | | | | | | CENTER - | | | | | | LABORATORY | | + + + + + + | Platelet | 199 | 140 - 440 K/uL | [facility] | | | Count | | | [facility] | | | | | | MEDICAL | | | | | | CENTER - | | | | | | LABORATORY | | + + + + + + | % | 75.3 (H) | 45 - 75 % | [facility] | | | Neutrophils | | | [facility] | | | | | | MEDICAL | | | | | | CENTER - | | | | | | LABORATORY | | + + + + + + | % | 13.9 (L) | 20 - 45 % | [facility] | | | Lymphocytes | | | [facility] | | | | | | MEDICAL | | | | | | CENTER - | | | | | | LABORATORY | | + + + + + + | % Monocytes | 9.8 | 4 - 12 % | [facility] | | | | | | [facility] | | | | | | MEDICAL | | | | | | CENTER - | | | | | | LABORATORY | | + + + + + + | % | 0.4 | 0 - 5 % | [facility] [...] + + + + | Absolute | 7.1 (H) | 1.5 - 6.6 K/uL | [...] + + + + | Absolute | 0.9 | 0.0 - 1.0 K/uL | [facility] [...] + | [facility] | [address] | [place], [place] | [phone] | | [facility] | | [address] | | | - LABORATORY | | | | + + + + + | [facility] | [address] | [place], [place] | | | [facility] | | [address] | | | - LABORATORY | | | | + + + + + Protime INR (08/29/2012 12:44 PM PDT) + + + + + + | Component | Value | Ref Range | Performed | Pathologist | | | | | At | Signature | + + + + + + | Prothrombin | 12.0 | 11.3 - 13.9 | [facility] | | | Time | | seconds | [facility] | | | | | | MEDICAL | | | | | | CENTER - | | | | | | LABORATORY | | + + + + + + | PATIENT | 12.5 | seconds | [facility] | | | NORMAL MEAN | | | [facility] | | | | | | MEDICAL | | | | | | CENTER - | | | | | | LABORATORY | | + + + + + + | INR | 1.0Comment: INR: USUAL | 0.9 - 1.1 | [facility] | | | | ORAL ANTICOAGULATION | | [facility] | | | | RANGE | | MEDICAL | | | | 2.0-3.0 | | CENTER - | | | | HIGH LEVEL ORAL | | LABORATORY | | | | ANTICOAGULATION RANGE | | | | | | 2.5-3.5 | | | | + + + + + + + + | Specimen | + + | | + + + + + + + | Performing | Address | City/State/Zipcode | Phone Number | | Organization | | | | + + + + + | [facility] | [address] | [place] | [phone] | | [facility] | | [address] | | | - LABORATORY | | | | + + + + + | [facility] | [address] | [place] | | | [facility] | | [address] | | | - LABORATORY | | | | + + + + + PTT (08/29/2012 12:44 PM PDT) + + + + + + | Component | Value | Ref Range | Performed | Pathologist | | | | | At | Signature | + + + + + + | aPTT | 20.0 (L)Comment: Normal | 22.1 - 36.0 | [facility] | | | | Patient Mean Value: 29.0 | seconds | [facility] | | | | seconds | | MEDICAL | | | | [...] + | [facility] | [address] | [place] | [phone] | | [facility] | | [address] | | | - LABORATORY | | | | + + + + + | [facility] | [address] | [place] | | | [facility] | | [address] | | | - LABORATORY | | | | + + + + + Comprehensive Metabolic Panel (08/29/2012 12:44 PM PDT) + + + + + + | Component | Value | Ref Range | Performed | Pathologist | | | | | At | Signature | + + + + + + | Glucose | 154 (H) | 70 - 109 mg/dL | [...] + + + + | Alkaline | 64 | 40 - 110 IU/L | [facility] | | | Phosphatase | | | [facility] | | | | | | MEDICAL | | | | | | CENTER - | | | | | | LABORATORY | | + + + + + + | AST | 19 | 10 - 42 IU/L | [facility] | | | | | | [facility] | | | | | | MEDICAL | | | | | | CENTER - | | | | | | LABORATORY | | + + + + + + | ALT | 25 | 6 - 45 IU/L | [facility] [...] | 5.4 (L) | 6.0 - 7.8 gm/dL | [facility] | | | Protein | | | [facility] | | | | | | MEDICAL | | | | | | CENTER - | | | | | | LABORATORY | | + + + + + + | Albumin | 3.0 (L) | 3.2 - 5.0 gm/dL | [facility] | | | | | | [facility] | | | | | | MEDICAL | | | | | | CENTER - | | | | | | LABORATORY | | + + + + + + | BUN | 28 (H) | 7 - 18 mg/dL | [facility] | | | | | | [facility] | | | | | | MEDICAL | | | | | | CENTER - | | | | | | LABORATORY | | + + + + + + | Creatinine | 0.97 | 0.60 - 1.30 | [facility] | | | | | mg/dL | [facility] | | | | | | MEDICAL | | | | | | CENTER - | | | | | | LABORATORY | | + + + + + + | Estimated | >60Comment: For | >60 mL/min/A | [facility] | | | GFR | -Americans, | [...] + + + + | BUN/Creatin | 28.9 (H) | 12 - 20 | [facility] | | | ine Ratio | | | [facility] | | | | | | MEDICAL | | | | | | CENTER - | | | | | | LABORATORY | | + + + + + + | Na | 139 | 136 - 149 mEq/L | [facility] | | | | | | ST. [...] + + + + | Cl | 107 | 98 - 109 mEq/l | [facility] [...] + + + | Anion Gap | 13.6 | 6.0 - 17.0 | [facility] | | | | | [...] [address] | [place] | [phone] | | [facility] | | [address] | | | - LABORATORY | | | | + + + + + | [facility] | [address] | [place] | | | [facility] | | [address] | | | - LABORATORY | | | | + + + + + documented in this encounter Visit Diagnoses Not on filedocumented in this encounter"
--- OUTSIDE RECORDS SUMMARY | ~2019-03-29 | XMS | Encounter Summary ---
Demographics + + + | Address | [address] | | | [place] [address] | + + + | Home Phone | | + + + | Preferred Language | Unknown | + + + | Marital Status | Single | + + + | Anabaptist Affiliation | [id number] | + + + | Race | Unknown | + + + | Ethnic Group | Unknown | + + + Author + + + | Author | [facility] | | | and [place] | + + + | Organization | [facility] | | | and [...] Team Providers + +------+ + | Care Engineering Mechanic Name | Role | Phone | + +------+ + | Yovani Alonso MD | PCP | | + +------+ + Encounter Details +--------+ + + + + | Date | Type | Department | Care Team | Description | +--------+ + + + + | 05/19/ | Abstract | [facility] | Mya Oliveros, | | | 2014 | | MED CTR NUCLEAR | Technologist | | | | | MEDICINE [address] | | | | | | [place], | | | | | | [place] [address] | | | | | | [phone] | | | +--------+ + + + [...]
--- OUTSIDE RECORDS SUMMARY | ~2019-03-29 | XMS | Encounter Summary ---
Demographics + + + | Address | [address] | | | [place] [address] | + + + | Home Phone [...] | [facility] | | | and [place] | + + + | Organization | [facility] | | [...] Team Providers + +------+ + | Care Helper Maintenance Cleaning Name | Role | Phone | + [...] | | | | | | [place] [address] | | | | | | [phone] | | | +--------+ + + + [...]
--- OUTSIDE RECORDS SUMMARY | ~2019-03-29 | XMS | Encounter Summary ---
Demographics + + + | Address | [address] | | | [place] [address] | + + + | Home Phone [...] | Author | [facility] | | | and [place] | + + + | Organization | [facility] | | | and [place] [...] Team Providers + +------+ + | Care Electronics Engineering Technician Name | Role | Phone | [...] | SR | | | | | [phone] | | | +--------+ + + + [...]
--- OUTSIDE RECORDS SUMMARY | ~2019-03-29 | XMS | Encounter Summary ---
Demographics + + + | Address | [address] | | | [place] [address] | + + + | Home Phone [...] | [facility] | | | and [place] | + + + | Organization | [facility] | | | and [...] Team Providers + +------+ + | Care Call Out Clerk Name | Role | Phone | + +------+ + PCP | Unavailable | + +------+ + Encounter Details +--------+ + + + + | Date | Type | Department | Care Team | Description | +--------+ + + + + | 04/29/ | Hospital | [facility] | [place], | | | 2007 | Encounter | MED CTR EMERGENCY | Noel Tolliver MD [address] | | | | | CENTER [address] | [facility] | | | | | [place] | [place] [address] | | | | | [address] | [phone] | | | | | [phone] | | | +--------+ + + + [...]
--- OUTSIDE RECORDS SUMMARY | ~2019-03-29 | XMS | Encounter Summary ---
Demographics + + + | Address | [address] | | | [place] [address] | + + + | Home Phone [...] Author | [facility] | | | and [place] | + + + | Organization | [facility] | | [...] Team Providers + +------+ + | Care Chemist Pharmaceutical Name | Role | Phone | + +------+ + | Yovani Alonso MD | PCP | | + +------+ + Encounter Details +--------+ + + + + | Date | Type | Department | Care Team | Description | +--------+ + + + + | 08/29/ | Hospital | [facility] | Jessica Dunn | | | 2012 | Encounter | MED CTR EMERGENCY | Caren Mejia MD 834 | | | | | CENTER [address] | [facility] | | | | | [place] | [place] [address] | | | | | [address] | [phone] | | | | | [phone] | | | +--------+ + + + [...] + | [facility] | [address] | [place], [place] | [phone] | | [facility] | | [address] | | | - LABORATORY | | | | + + + + + | [facility] | [address] | [place], [place] | | | [facility] | | [address] | | | - LABORATORY | | [...] [address] | [place] | [phone] | | [facility] | | [address] | | | - LABORATORY | | | | + + + + + | [facility] | [address] | [place] | | | [facility] | | [address] | | | - LABORATORY | | [...] + | [facility] | [address] | [place] | [phone] | | [facility] | | [address] | | | - LABORATORY | | | | + + + + + | [facility] | [address] | [place] | | | [facility] | | [address] | | | - LABORATORY | | [...] [address] | [place] | [phone] | | [facility] | | [address] | | | - LABORATORY | | | | + + + + + | [facility] | [address] | [place] | | | [facility] | | [address] | | | - LABORATORY | | | | + + + + + documented in this encounter Visit Diagnoses Not on filedocumented in this encounter"
--- OUTSIDE RECORDS SUMMARY | ~2019-03-29 | XMS | Encounter Summary ---
Demographics + + + | Address | [address] | | | [place] [address] | + + + | Home Phone | | + + + | Preferred Language | Unknown | + + + | Marital Status | Single | + + + | Scientologist Affiliation | 1041 | + + + | Race | Unknown | + + + | Ethnic Group | Unknown | + + + Author + + + | Author | [facility] | | | and [place] | + + + | Organization | [facility] | [...] Team Providers + +------+ + | Care Decommissioning Well Site Manager Name | Role | Phone | + +------+ + PCP | Unavailable | + +------+ + Encounter Details +--------+ + + + + | Date | Type | Department | Care Team | Description | +--------+ + + + + | 11/07/ | Hospital | [facility] | Rashel Mcdonald, | | | 2009 | Encounter | MED CTR GENERIC OP | MD [address] | | | | | CONV DEPT [address] | [place] | | | | | [place], | [address] | | | | | [place] [address] | | | | | | [phone] | | | +--------+ + + + [...]
--- OUTSIDE RECORDS SUMMARY | ~2019-03-29 | XMS | Encounter Summary ---
Demographics + + + | Address | [address] | | | [place] [address] | + + + | Home Phone [...] | Author | [facility] | | | and [place] | + + + | Organization | [facility] [...] Team Providers + +------+ + | Care Combat Control Name | Role | Phone | + +------+ + PCP | Unavailable | + +------+ + Encounter Details +--------+ + + + + | Date | Type | Department | Care Team | Description | +--------+ + + + + | 06/29/ | Hospital | [facility] | | | | 2005 - | Encounter | MED CTR MED ONC | | | | | | [address] | | | | 07/18/ | | [place] [address] | | | | 2005 | | [phone] | | | +--------+ + + + [...]
--- OUTSIDE RECORDS SUMMARY | ~2019-03-29 | XMS | Encounter Summary ---
Demographics + + + | Address | [address] | | | [place] [address] | + + + | Home Phone [...] + | Author | [facility] | | | and [place] | + + + | Organization | [facility] | | | [...] Team Providers + +------+ + | Care Secondary Teacher Name | Role | Phone | + +------+ + | Yovani Alonso MD | PCP | | + +------+ + Encounter Details +--------+---------+ + + + | Date | Type | Department | Care Team | Description | +--------+---------+ + + + | 09/07/ | Office | [facility] | Uabldo Xie | NO SHOW (Primary Dx) | | 2015 | Visit | SLEEP DISORDER [address] | MD Lucas [address] | | | | | [address] [place] | [address] [place] | | | | | [place], [place] [address] | [place] [address] | | | | | [phone] | [phone] | | | | | | | [...] patient was a NO SHOW for his [facility] appointment. This is the third consecutive No [...]
--- OUTSIDE RECORDS SUMMARY | ~2019-03-29 | XMS | Encounter Summary ---
Demographics + + + | Address | [address] | | | [place] [address] | + + + | Home Phone [...] Author | [facility] | | | and [place] | + + + | Organization | [facility] | [...] Team Providers + +------+ + | Care Entry Operator Name | Role | Phone | [...] [address] | | | | | [place], | [address] [place] | | | | | [place] [address] | [place] [address] | | | | | [phone] | [phone] | | | | | | | [...] | | | LAB | | | [place], | | | | | | External [...]
--- OUTSIDE RECORDS SUMMARY | ~2019-03-29 | XMS | Encounter Summary ---
Demographics + + + | Address | [address] | | | [place] [address] | + + + | Home Phone [...] | Author | [facility] | | | and [place] | + + + | Organization | [facility] | [...] Team Providers + +------+ + | Care Irrigation Teacher Name | Role | Phone | + +------+ + | Yovani Alonso MD | PCP | | + +------+ + Encounter Details +--------+ + + + + | Date | Type | Department | Care Team | Description | +--------+ + + + + | 05/26/ | Hospital | [facility] | Cyndi Dias | | | 2012 - | Encounter | MED CTR EMERGENCY | DO Khurram Smith | | | | | CENTER [address] | [place], [place] | | | 05/27/ | | [place] | [address] | | | 2012 | | [address] | | | | | | [phone] | [place], | | | | | | [address] | | | | | | [facility] [place] | | | | | | [place] [address] | | | | | | [phone] | | | | | | | [...] At | + + + | [facility] | [place] | | [address] | [facility] | | [ rep [address]] [ rep [facility] | | st zip] Signed | - IMAGING | | | | | Patient Name: JUNIOR VEGA | | | Physician: LEANDRO : 1960 Age: 52 Sex: M Unit | | | #: [id number] Exam Date: 05/26/12 Location: | | | ER Report #: [id number] Page: | | | %(RAD)RES..mtdd.print.filter("pg") of %(RAD) | | | RES..mtdd.print.filter("tpg") | | | | | | Accession Number: [id number] | | | CT ABDOMEN AND PELVIS, [...] Transcribed Date/Time: 05/27/2012 | | | 09:29 Trial Mgr: <<Signature on | | | File>> | | | Man Maldonado MD05/27/12 1808 <Electronically signed by Man Maldonado MD> Man Maldonado MD 05/27/12 0901 | | | Trial Mgr: Anavexcorine Eadqkenkeuxdi30/05/13 0929 | | | | | + + + + + + + + | Performing | Address | City/State/Zipcode | Phone Number | | Organization | | | | + + + + + | [facility] | [address] | [place] | [phone] | | [facility] | | [address] | | | - IMAGING | | | | + + + + + documented in this encounter Visit Diagnoses Not on filedocumented in this encounter
--- OUTSIDE RECORDS SUMMARY | ~2019-03-29 | XMS | Encounter Summary ---
Demographics + + + | Address | [address] | | | [place] [address] | + + + | Home Phone [...] | Author | [facility] | | | and [place] | + + + | Organization | [facility] | | [...] Team Providers + +------+ + | Care Career Discovery Teacher Name | Role | Phone | + +------+ + | Yovani Alonso MD | PCP | | + +------+ + Encounter Details +--------+ + + + + | Date | Type | Department | Care Team | Description | +--------+ + + + + | 04/12/ | [facility] | [facility] | Donell Coats | Human | | 2015 | Encounter | MED CTR LABORATORY | Brent WILL | immunodeficiency | | | | [address] | Brent Metz | virus (HIV) disease | | | | [place] | MD [address] | (HCC) (Primary Dx) | | | | [address] | [address] | | | | | [phone] | [place] [address] | | | | | | [phone] | | | | | | | [...] 0 | 12/06/19 | | | (ROLF CARROLLALER) | daily | | | 12 [...] [place] | | | | | | [address] | | | | + + + + + + + + | Specimen | + + | Blood specimen | | (specimen) | + + + + + + + | Performing | Address | City/State/Zipcode | Phone Number | | Organization | | | | + + + + + | [facility] | [address] | [place] [address] | [phone] | + + + + + CD4 [...] | [facility] | | | | [facility] | | | | | | [place], [address], | | | | | | [place] [address] | | | | + + + [...] | | | | | | determinedby [place] | | | | | | [facility] | | | | | | [place]. It has not been | | | [...] | | | | | | Performed: [place] | | | | | | [facility] | | | | | | Center, [address], | | | | | | [place] [address] | | | | + + + [...] [address] | [place] [address] | [phone] | + + + + + Comprehensive [...] 18 | 7 - 18 mg/dL | [facility] | | | | | | [facility] | | | | | | MEDICAL | | | | | | CENTER - | | | | | | LABORATORY | | + + + + + + | Creatinine | 0.88 | 0.60 - 1.30 | [facility] | | | | | mg/dL | [facility] | | | | | | MEDICAL | | | | | | CENTER - | | | | | | LABORATORY | | + + + + + + | eGFR if not | >60Comment: GLOMERULAR | >=60 | [facility] | | | | FILTRATION | mL/min/1.73m2 | [facility] | | | CHILEAN | RATE,ESTIMATED | | MEDICAL | | | | mL/min/1.90x7Cgpl than | | CENTER - | | [...] + | [facility] | [address] | [place], [place] | [phone] | | [facility] | | [address] | | | - LABORATORY | | | | + + + + + | [facility] | [address] | [place], [place] | | | [facility] | | [address] | | | - LABORATORY | | [...] [address] | [place] | [phone] | | [facility] | | [address] | | | - LABORATORY | | | | + + + + + | [facility] | [address] | [place], [place] | | | [facility] | | [address] | | | - LABORATORY | | | | + + + + + documented in this encounter Visit Diagnoses + + | Diagnosis | + + | Human immunodeficiency virus (HIV) disease (HCC) - Primary Human immunodeficiency | | virus [HIV] disease | + + documented in this encounter
--- OUTSIDE RECORDS SUMMARY | ~2019-03-29 | XMS | Encounter Summary ---
Demographics + + + | Address | [address] | | | [place] [address] | + + + | Home Phone [...] Author | [facility] | | | and [place] | + + + | Organization | [facility] | | | and [...] Team Providers + +------+ + | Care Lawn Technician Name | Role | Phone | + +------+ + PCP | Unavailable | + +------+ + Encounter Details +--------+ + + + + | Date | Type | Department | Care Team | Description | +--------+ + + + + | 02/06/ | Hospital | [facility] | [place] Dunn | | | 2006 | Encounter | MED CTR EMERGENCY | Caren Mejia MD [address] | | | | | [address] | [facility] | | | | | [place] | [place] [address] | | | | | [address] | [phone] | | | | | [phone] | | | +--------+ + + + [...]
--- OUTSIDE RECORDS SUMMARY | ~2019-03-29 | XMS | Encounter Summary ---
Demographics + + + | Address | [address] | | | [place] [address] | + + + | Home Phone | | + + + | Preferred Language | Unknown | + + + | Marital Status | Single | + + + | Rastafarian Affiliation | [id number] | + + + | Race | Unknown | + + + | Ethnic Group | Unknown | + + + Author + + + | Author | [facility] | | | and [place] | + + + | Organization | [facility] | | [...] Team Providers + +------+ + | Care Customer Data Technician Name | Role | Phone | + +------+ + | Yovani Alonso MD | PCP | | + +------+ + Encounter Details +--------+---------+ + + + | Date | Type | Department | Care Team | Description | +--------+---------+ + + + | 06/02/ | Office | [facility] [place] | Ubaldo Xie | JAG (obstructive | | 2015 | Visit | SLEEP DISORDER [address] | [address] | sleep apnea) | | | | [address] | [address] [place] | (Primary Dx) | | | | [place] [address] | [place] [address] | | | | | [phone] | [phone] | | | | | | | [...]
--- OUTSIDE RECORDS SUMMARY | ~2019-03-29 | XMS | Encounter Summary ---
Demographics + + + | Address | [address] | | | [place] [address] | + + + | Home Phone | | + + + | Preferred Language | Unknown | + + + | Marital Status | Single | + + + | Yarsanism Affiliation | [id number] | + + + | Race | Unknown | + + + | Ethnic Group | Unknown | + + + Author + + + | Author | [facility] | | | and Chayana | + + + | Organization | [facility] | | | and Chayana [...] Team Providers + +------+ + | Care Rotating Equipment Specialist Name | Role | Phone | + +------+ + PCP | Unavailable | + +------+ + Encounter Details +--------+ + + + + | Date | Type | Department | Care Team | Description | +--------+ + + + + | 09/12/ | Hospital | [facility] | [place], | | | 2007 | Encounter | MED CTR EMERGENCY | Noel Tolliver MD [address] | | | | CENTER [address] | [facility] | | | | | [place] | [facility] [address] | | | | | [address] | [phone] | | | | | [phone] | | | +--------+ + + + [...]
--- OUTSIDE RECORDS SUMMARY | ~2019-03-29 | XMS | Encounter Summary ---
Demographics + + + | Address | [address] | | | [place] [address] | + + + | Home Phone [...] | Author | [facility] | | | and Chayana | + + + | Organization | [facility] | [...] Team Providers + +------+ + | Care Training And Development Professional Name | Role | Phone | + +------+ + PCP | Unavailable | + +------+ + Encounter Details +--------+ + + + + | Date | Type | Department | Care Team | Description | +--------+ + + + + | 11/12/ | Hospital | [facility] | | | | 2006 | Encounter | MED CTR XRAY [address] | | | | | | [address] [place] | | | | | | [place] [address] | | | | | | [phone] | | | +--------+ + + + [...]
--- OUTSIDE RECORDS SUMMARY | ~2019-03-29 | XMS | Encounter Summary ---
Demographics + + + | Address | [address] | | | [place] [address] | + + + | Home Phone [...] + + + | Author | [facility] | | | and Chayana | + + + | Organization | [facility] | | | and Chayana [...] Team Providers + +------+ + | Care Automatic Paint Sprayer Operator Name | Role | Phone | + +------+ + PCP | Unavailable | + +------+ + Encounter Details +--------+ + + + + | Date | Type | Department | Care Team | Description | +--------+ + + + + | 02/19/ | Hospital | [facility] | | | | 2006 | Encounter | MED CTR LABORATORY | | | | | | [address] | | | | | | [place] | | | | | | [address] | | | | | | [phone] | | | +--------+ + + + [...]
--- OUTSIDE RECORDS SUMMARY | ~2019-03-29 | XMS | Encounter Summary ---
Demographics + + + | Address | [address] | | | [place] [address] | + + + | Home Phone [...] | [facility] | | | and [place]ay[place] | + + + | Organization | [facility] | [...] Team Providers + +------+ + | Care Diesel Locomotive Firer/Fireman Name | Role | Phone | + +------+ + PCP | Unavailable | + +------+ + Encounter Details +--------+ + + + + | Date | Type | Department | Care Team | Description | +--------+ + + + + | 02/07/ | Hospital | [facility] | Renetta Falk | | | 2005 | Encounter | MED CTR XRAY [address] | MD Yvonne [address] | | | | | [place] | [address] [place] | | | | | [place] [address] | [place] [address] | | | | | [phone] | [phone] | | | | | | | [...]
[~2019-03-29 21:16] MED LIST changes: +NORVASC10 MG PO; +TRIUMEQ TABLET1 EACH PO
--- OUTSIDE RECORDS SUMMARY | 2019-03-29 21:20 | XMS ---
PreManage Notification: DWAINE VEGA Security Twitchell Operator Events No recent Security Events currently on file CRITERIA MET - WILL CARE PROVIDERS GALDINO LUQUE [facility] Current PHONE: [phone] Blanka Dumont Resident Physician/Vascular Tech 11/23/2018-Current PHONE: [phone] Blanka Dumont Primary Care 11/23/2018-Current PHONE: [phone] Colette has no Care Guidelines for this patient. E.D. VISIT COUNT (12 MO.) 2 [facility] TOTAL 2 NOTE: Visits indicate total known visits. ED/UCC VISIT TRACKING (12 MO.) 03/29/2019 21:17 [facility] [place] TYPE: Emergency COMPLAINT: - FEEDING TUBE BLOCK 06/10/2018 17:55 [facility] [place] TYPE: Emergency COMPLAINT: - SOB DIAGNOSES: - Shortness of breath - Chronic obstructive pulmonary disease w (acute) exacerbation - Other oil heaterman (current) drug therapy - Allergy status to penicillin - Personal history of nicotine dependence - Polyneuropathy, unspecified INPATIENT VISIT TRACKING (12 MO.) 02/27/2019 08:[address] 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 - Allergy status to penicillin - Gastroduodenitis, unspecified, without bleeding - Pure hypercholesterolemia, unspecified - Chronic obstructive pulmonary disease, unspecified - Diaphragmatic hernia without obstruction or gangrene - Other half-way (current) drug therapy - Essential (primary) hypertension - Asymptomatic human immunodeficiency virus infection status - Allergy status to penicillin - Pure hypercholesterolemia, unspecified - Asymptomatic human immunodeficiency virus infection status - Essential (primary) hypertension - Unspecified osteoarthritis, unspecified site - Gastroduodenitis, unspecified, without bleeding - Diaphragmatic hernia without obstruction or gangrene [email or web address]
== END 2019-03-29 22:07 | disposition home or self-care (01) ==
LOC: ED 21:16
DX: K94.23 Gastrostomy malfunction (principal); J44.9 Chronic obstructive pulmonary disease, unspecified; B20 Human immunodeficiency virus [HIV] disease; Z87.891 Personal history of nicotine dependence; Z88.0 Allergy status to penicillin; Z79.899 Other long term (current) drug therapy
CPT/HCPCS: 99282

== ENCOUNTER 2019-04-27 09:37 | Emergency (ER) | payer MEDICARE, OTHER ==
[~2019-04-27] VITALS: Ht 182.9 cm; Wt 107.9 kg
[~2019-04-27 09:37] MED LIST changes: +ATIVAN1 MG PO; +CISPLATIN IV; +DEXAMETHASONE4 MG PO; +ONDANSETRON ODT8 MG PO; +OXYCODONE HCL5 MG PO; +VENTOLIN HFA18 GM
--- OUTSIDE RECORDS SUMMARY | 2019-04-27 09:40 | XMS ---
PreManage Notification: DWAIEN VEGA Security Metalizer Field Operation Events No recent Security Events currently on file CRITERIA MET - [facility] - [facility] [place] [facility] - 2 Visits in 30 Days CARE PROVIDERS GALDINO LUQUE [facility] Current PHONE: [phone] Blanka Dumont Tester Compressed Gases/Brewery Pumper 11/23/2018-Current PHONE: [phone] Blanka Dumont Primary Care 11/23/2018-Current PHONE: [phone] Colette has no Care Guidelines for this patient. E.D. VISIT COUNT (12 MO.) 3 SHELBI Bhatt TOTAL 3 NOTE: Visits indicate total known visits. ED/UCC VISIT TRACKING (12 MO.) 04/27/2019 09:38 SHELBI [place] TYPE: Emergency COMPLAINT: - FEVER 03/29/2019 21:17 SHELBI [place] TYPE: Emergency COMPLAINT: - FEEDING TUBE BLOCK DIAGNOSES: - Chronic obstructive pulmonary disease, unspecified - Gastrostomy malfunction - Other intermediate accountant (current) drug therapy - Allergy status to penicillin - Personal history of nicotine dependence 06/10/2018 17:55 SHELBI Clayton [place] TYPE: Emergency COMPLAINT: - SOB DIAGNOSES: - Shortness of breath - Chronic obstructive pulmonary disease w (acute) exacerbation - Other mcfp (current) drug therapy - Allergy status to penicillin - Personal history of nicotine dependence - Polyneuropathy, unspecified INPATIENT VISIT TRACKING (12 MO.) 02/27/2019 08:25 SHELBI Clayton [place] TYPE: Medical Surgical COMPLAINT: - PORT A CATH INSERTION,PEG TUBE INSERTION DIAGNOSES: - Chronic obstructive pulmonary disease, unspecified - Unspecified osteoarthritis, unspecified site - Other intermediate accountant (current) drug therapy - 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 - Allergy status to penicillin - Gastroduodenitis, unspecified, without bleeding - Pure hypercholesterolemia, unspecified - Chronic obstructive pulmonary disease, unspecified - Diaphragmatic hernia without obstruction or gangrene - Other intermediate accountant (current) drug therapy - Essential (primary) hypertension - Asymptomatic human immunodeficiency virus infection status - Allergy status to penicillin - Pure hypercholesterolemia, unspecified - Asymptomatic human immunodeficiency virus infection status - Essential (primary) hypertension - Unspecified osteoarthritis, unspecified site - Gastroduodenitis, unspecified, without bleeding - Diaphragmatic hernia without obstruction or gangrene [email or web address]
[2019-04-29] MEDS ORDERED: FENTANYL1 EAC4 TD (08:51)
== END 2019-04-27 12:37 | disposition home or self-care (01) ==
LOC: ED 09:37
DX: R50.9 Fever, unspecified (principal); C76.0 Malignant neoplasm of head, face and neck; J44.9 Chronic obstructive pulmonary disease, unspecified; B20 Human immunodeficiency virus [HIV] disease; Z87.891 Personal history of nicotine dependence; Z88.0 Allergy status to penicillin; Z79.899 Other long term (current) drug therapy
CPT/HCPCS: 71046; 81001; 83605; 87502; 96374; 99283-25; J1885; J7030

== ENCOUNTER 2019-06-11 09:18 | Emergency (ER) | payer MEDICARE, OTHER ==
[~2019-06-11] VITALS: Ht 182.9 cm; Wt 100.2 kg
[~2019-06-11 09:18] MED LIST changes: +DIFLUCAN100 MG PO; +FENTANYL1 EAC4 TD
--- OUTSIDE RECORDS SUMMARY | 2019-06-11 09:22 | XMS ---
PreManage Notification: DWAINE VEGA Security Production Control Technologist Events No recent Security Events currently on file CRITERIA MET - WILL CARE PROVIDERS GALDINO LUQUE [facility] Current PHONE: [phone] Blanka Dumont Jewelry Racker/Ip Attorney 11/23/2018-Current PHONE: [phone] Blanka Dumont Primary Care 11/23/2018-Current PHONE: [phone] Colette has no Care Guidelines for this patient. E.D. VISIT COUNT (12 MO.) 3 SHELBI Bhatt TOTAL 3 NOTE: Visits indicate total known visits. ED/UCC VISIT TRACKING (12 MO.) 06/11/2019 09:19 SHELBI Clayton [place] TYPE: Emergency COMPLAINT: - CLOGGED FEEDING TUBE 04/27/2019 09:38 SHELBI Clayton [place] TYPE: Emergency COMPLAINT: - FEVER DIAGNOSES: - Malignant neoplasm of head, face and neck - Fever, unspecified - Personal history of nicotine dependence - Other chcf (current) drug therapy - Chronic obstructive pulmonary disease, unspecified - Allergy status to penicillin 03/29/2019 21:17 SHELBI [place] TYPE: Emergency COMPLAINT: - FEEDING TUBE BLOCK DIAGNOSES: - Chronic obstructive pulmonary disease, unspecified - Gastrostomy malfunction - Other chcf (current) drug therapy - Allergy status to penicillin - Personal history of nicotine dependence 06/10/2018 17:55 SHELBI Clayton [place] TYPE: Emergency COMPLAINT: - SOB DIAGNOSES: - Shortness of breath - Chronic obstructive pulmonary disease w (acute) exacerbation - Other terminal clerk (current) drug therapy - Allergy status to penicillin - Personal history of nicotine dependence - Polyneuropathy, unspecified INPATIENT VISIT TRACKING (12 MO.) 02/27/2019 08:25 SHELBI Clayton [place] TYPE: Medical Surgical COMPLAINT: - PORT A CATH INSERTION,PEG TUBE INSERTION DIAGNOSES: - Chronic obstructive pulmonary disease, unspecified - Unspecified osteoarthritis, unspecified site - Other chcf (current) drug therapy - 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 - Allergy status to penicillin - Gastroduodenitis, unspecified, without bleeding - Pure hypercholesterolemia, unspecified - Chronic obstructive pulmonary disease, unspecified - Diaphragmatic hernia without obstruction or gangrene - Other terminal clerk (current) drug therapy - Essential (primary) hypertension - Asymptomatic human immunodeficiency virus infection status - Allergy status to penicillin - Pure hypercholesterolemia, unspecified - Asymptomatic human immunodeficiency virus infection status - Essential (primary) hypertension - Unspecified osteoarthritis, unspecified site - Gastroduodenitis, unspecified, without bleeding - Diaphragmatic hernia without obstruction or gangrene [email or web address]
--- NOTE | 2019-06-12 15:50 | OR ---
[facility] [address] [place] [address] Signed DATE OF OPERATION: 06/11/2019 SURGEON: Erasmo Barbour MD PREOPERATIVE DIAGNOSIS: Explanted plugged PEG tube with difficulty inserting a new KILO Gaitan G-tube. POSTOPERATIVE DIAGNOSIS: Explanted plugged PEG tube with difficulty inserting a new KILO Gaitan G-tube. PROCEDURES: 1. Dilation of gastric tube tract with Hegar dilators. 2. Placement of 18-Irish KILO G-tube device. ANESTHESIA: None. PROCEDURE IN DETAIL: In a semi-recumbent position, the G-tube, which had failed to pass well into the abdominal wall was removed. Some serous and bloody fluid were noted associated with the tube. The tube tract was probed with sequential application of Hegar dilators, which seemed to pass without impediment. The tube was once again lubricated and gently passed and ultimately manipulated into what appeared to be the gastric lumen. The balloon was inflated slightly with an mL or two of tap water. It appeared to be well positioned. The flange was secured. A subsequent G-tube contrast study was obtained confirming the tube to be in the stomach itself. MD AUGUSTINE Cueva/KWASI /[id number] Copies: Electronically Signed By: ERASMO BARBOUR MD 06/12/19 1550 PATIENT NAME: DWAINE VEGA JR OPERATIVE REPORT DATE OF : 58 REPORT #: [id number] PHYSICIAN: ERASMO BARBOUR MD PCP: GALDINO LUQUE MD REPORT IS CONFIDENTIAL AND NOT TO BE RELEASED WITHOUT AUTHORIZATION [address] [address] Signed ~ Electronically Signed By: ERASMO BARBOUR MD 06/12/19 1550 PATIENT NAME: DWAINE VEGA JR OPERATIVE REPORT DATE OF : 58 REPORT #: [id number] PHYSICIAN: ERASMO BARBOUR MD PCP: GALDINO LUQUE MD REPORT IS CONFIDENTIAL AND NOT TO BE RELEASED WITHOUT AUTHORIZATION
--- NOTE | 2019-06-12 15:50 | CONS ---
[facility] [address] [place], [place] [address] Signed DATE OF CONSULTATION: 06/11/2019 REQUESTING PHYSICIAN: Dr. Valdes. PROBLEM: Difficulty with replacing feeding tube. 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 He had a PEG feeding tube placed by Dr. Memo Rasmussen approximately in February. My understanding was it was a difficult placement at that time due to airway issues. He has completed his radiation therapy and recently underwent upper endoscopy at [facility] showing marked improvement of his hypopharyngeal area. He is eating some chicken and some solid food and liquids and although he has a paucity of saliva with liquids seems to swallow well. Two days ago, his feeding tube became plugged and nonfunctional. He presented to the emergency room today with the tube in place. Dr. Valdes rightly attempted to free the tube if it is clogged, which was impossible. Subsequently, the PEG tube was explanted. Attempts at replacing it with an 18-Bengali KILO balloon type tube have been somewhat unsuccessful and I am asked to consult on that basis. PHYSICAL EXAMINATION: The patient appears alert and oriented. He is rather obese generally. The site of the previous tube placement shows some amount of watery bloody fluid. The catheter was removed as the balloon was not inflated. Probing of the tract with a set of dilators showed no specific impediment to it. I replaced the 18-Bengali KILO tube with some lubricant and some inflation of the balloon with saline did cause some discomfort, but did appear functional. The tube was infused with some tap water, which seemed to flow through it. ASSESSMENT: He may have incomplete placement of tube into the tract. The placement through the gastric wall may have been tangential rather than straightforward and on that basis, we will get a contrast study to see that the tube was well positioned. If not, further interventions might be necessary. Electronically Signed By: ERASMO BARBOUR MD 06/12/19 1550 PATIENT NAME: DWAINE VEGA CONSULTATION DATE OF : 58 REPORT #: [id number] PHYSICIAN: ERASMO BARBOUR MD PCP: GALDINO LUQUE MD REPORT IS CONFIDENTIAL AND NOT TO BE RELEASED WITHOUT AUTHORIZATION [address], [place] [address] Signed Consideration will be made for abandonment of the feeding tube as his therapy is complete and his swallowing is improved. I reviewed this with Dr. Valdes. MD AUGUSTINE Cueva/MODL /[id number] cc: STEVEN VALDES MD Copies: ~ Electronically Signed By: ERASMO BARBOUR MD 06/12/19 1550 PATIENT NAME: DWAINE VEGA CONSULTATION DATE OF : 58 REPORT #: [id number] PHYSICIAN: ERASMO BARBOUR MD PCP: GALDINO LUQUE MD REPORT IS CONFIDENTIAL AND NOT TO BE RELEASED WITHOUT AUTHORIZATION
== END 2019-06-11 13:10 | disposition home or self-care (01) ==
LOC: ED 09:18
DX: K94.23 Gastrostomy malfunction (principal); C14.0 Malignant neoplasm of pharynx, unspecified; J44.9 Chronic obstructive pulmonary disease, unspecified; B20 Human immunodeficiency virus [HIV] disease; G62.9 Polyneuropathy, unspecified; Z90.49 Acquired absence of other specified parts of digestive tract; Z90.89 Acquired absence of other organs; Z88.0 Allergy status to penicillin; Z79.899 Other long term (current) drug therapy
CPT/HCPCS: 74018; 99283-25

== ENCOUNTER 2019-06-23 17:45 | Emergency (ER) | payer MEDICARE, OTHER ==
[~2019-06-23] VITALS: Ht 182.9 cm; Wt 93.4 kg
--- OUTSIDE RECORDS SUMMARY | 2019-06-23 17:50 | XMS ---
PreManage Notification: DWAINE VEGA Security Supervisor Electrolytic Tinning Events No recent Security Events currently on file CRITERIA MET - [facility] - [facility] - 2 Visits in 30 Days CARE PROVIDERS GALDINO LUQUE [facility] Current PHONE: Unknown Blanka Dumont Tubing Tester/Concrete Tester 11/23/2018-Current PHONE: [phone] Blanka Dumont Primary Care 11/23/2018-Current PHONE: [phone] Colette has no Care Guidelines for this patient. E.D. VISIT COUNT (12 MO.) 4 SHELBI Bhatt TOTAL 4 NOTE: Visits indicate total known visits. ED/UCC VISIT TRACKING (12 MO.) 06/23/2019 17:46 SHELBI Clayton [place] TYPE: Emergency COMPLAINT: - FEEDING TUBE CAME OUT 06/11/2019 09:19 SHELBI Clayton [place] TYPE: Emergency COMPLAINT: - CLOGGED FEEDING TUBE DIAGNOSES: - Acquired absence of other specified parts of digestive tract - Allergy status to penicillin - Gastrostomy malfunction - Chronic obstructive pulmonary disease, unspecified - Polyneuropathy, unspecified - Acquired absence of other organs - Other penitentiary (current) drug therapy - Malignant neoplasm of pharynx, unspecified 04/27/2019 09:38 SHELBI Clayton [place] TYPE: Emergency COMPLAINT: - FEVER DIAGNOSES: - Malignant neoplasm of head, face and neck - Fever, unspecified - Personal history of nicotine dependence - Other penitentiary (current) drug therapy - Chronic obstructive pulmonary disease, unspecified - Allergy status to penicillin 03/29/2019 21:17 SHELBI Clayton [place] TYPE: Emergency COMPLAINT: - FEEDING TUBE BLOCK DIAGNOSES: - Chronic obstructive pulmonary disease, unspecified - Gastrostomy malfunction - Other svp business development (current) drug therapy - Allergy status to penicillin - Personal history of nicotine dependence INPATIENT VISIT TRACKING (12 MO.) 02/27/2019 08:25 SHELBI Clayton [place] TYPE: Medical Surgical COMPLAINT: - PORT A CATH INSERTION,PEG TUBE INSERTION DIAGNOSES: - Chronic obstructive pulmonary disease, unspecified - Unspecified osteoarthritis, unspecified site - Other penitentiary (current) drug therapy - 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 - Allergy status to penicillin - Gastroduodenitis, unspecified, without bleeding - Pure hypercholesterolemia, unspecified - Chronic obstructive pulmonary disease, unspecified - Diaphragmatic hernia without obstruction or gangrene - Other penitentiary (current) drug therapy - Essential (primary) hypertension - Asymptomatic human immunodeficiency virus [HIV] infection sta - Allergy status to penicillin - Pure hypercholesterolemia, unspecified - Asymptomatic human immunodeficiency virus [HIV] infection sta - Essential (primary) hypertension - Unspecified osteoarthritis, unspecified site - Gastroduodenitis, unspecified, without bleeding - Diaphragmatic hernia without obstruction or gangrene [email or web address]
== END 2019-06-23 18:48 | disposition home or self-care (01) ==
LOC: ED 17:45
DX: Z43.1 Encounter for attention to gastrostomy (principal); J44.9 Chronic obstructive pulmonary disease, unspecified; B20 Human immunodeficiency virus [HIV] disease; Z87.891 Personal history of nicotine dependence; Z88.0 Allergy status to penicillin
CPT/HCPCS: 99282

== ENCOUNTER 2020-02-04 08:27 | Emergency (ER) | payer MEDICARE, OTHER ==
[~2020-02-04] VITALS: Ht 182.9 cm; Wt 91.5 kg
[~2020-02-04 08:27] MED LIST changes: -24 HOUR ALLER15.8 ML INH; +24 HOUR ALLER15.8 ML NAS; -LISINOPRIL40 MG PO; -NORVASC10 MG PO; +NORVASC5 MG PO; +PRINIVIL20 MG PO
[2020-02-04] MEDS ORDERED: MELOXICAM7.5 MG PO (13:21)
[2020-02-04] MEDS ORDERED: CYCLOBENZAPRINE5 MG PO (13:21)
== END 2020-02-04 13:39 | disposition home or self-care (01) ==
LOC: ED 08:27
DX: S16.1XXA Strain of muscle, fascia and tendon at neck level, initial encounter (principal); X58.XXXA Exposure to other specified factors, initial encounter; J44.9 Chronic obstructive pulmonary disease, unspecified; B20 Human immunodeficiency virus [HIV] disease; Z85.850 Personal history of malignant neoplasm of thyroid; Z88.0 Allergy status to penicillin; Z79.899 Other long term (current) drug therapy
CPT/HCPCS: 70491; 71045; 80053; 83605; 85025; 99284-25; J2270; J2405; Q9967

== ENCOUNTER 2021-03-08 16:12 | Emergency (ER) | payer MEDICARE, OTHER ==
[~2021-03-08] VITALS: Ht 182.9 cm; Wt 83.3 kg
[~2021-03-08 16:12] MED LIST changes: +CYCLOBENZAPRINE5 MG PO; +LOPERAMIDE2 MG PO; +MELOXICAM7.5 MG PO; +SPIRIVA RESPIMAT4 GM INH
[2021-03-08] MEDS ORDERED: CEPHALEXIN500 M1 PO (17:32)
== END 2021-03-08 17:55 | disposition home or self-care (01) ==
LOC: ED 16:12
DX: H10.89 Other conjunctivitis (principal); J44.9 Chronic obstructive pulmonary disease, unspecified; Z21 Asymptomatic human immunodeficiency virus [HIV] infection status; Z88.0 Allergy status to penicillin; Z79.899 Other long term (current) drug therapy
CPT/HCPCS: 99283

== ENCOUNTER 2021-08-09 22:06 | Emergency (ER) | payer MEDICARE, OTHER ==
[~2021-08-09] VITALS: Ht 182.9 cm; Wt 88.0 kg
[~2021-08-09 22:06] MED LIST changes: +CEPHALEXIN500 M1 PO
[2021-08-10] MEDS ORDERED: DOXYCYCLINE HY100 MG PO (02:03)
[2021-08-10] MEDS ORDERED: CEFPODOXIME PR200 MG PO (02:03)
--- NOTE | 2021-08-13 08:53 | EKG ---
[facility] [address] [facility] [place] [address] Signed Sinus tachycardia Otherwise normal ECG When compared with ECG of 02-AUG-2021 12:03, No significant change was found Confirmed by STAS LOPEZ MD ([id number]) on 08/13/2021 8:53:42 AM Electronically Signed By: STAS LOPEZ MD 08/13/21 0853 PATIENT NAME: DWAINE VEGA JR Electrocardiogram DATE OF : 58 PHYSICIAN: STAS LOPEZ MD REPORT #: [id number] REPORT IS CONFIDENTIAL AND NOT TO BE RELEASED WITHOUT AUTHORIZATION
== END 2021-08-10 02:41 | disposition home or self-care (01) ==
LOC: ED 22:06
DX: J18.9 Pneumonia, unspecified organism (principal); J44.9 Chronic obstructive pulmonary disease, unspecified; Z21 Asymptomatic human immunodeficiency virus [HIV] infection status; Z88.0 Allergy status to penicillin; Z79.899 Other long term (current) drug therapy; Z20.822 Contact with and (suspected) exposure to COVID-19
CPT/HCPCS: 36415; 71045; 74176; 80053; 81001; 82803; 83605; 85025; 85610; 85730; 87040; 87502; 93005; 93010; 96361; 96365; 96375; 99284-25; A9270; J0696; J1885; J7121; U0003

== ENCOUNTER 2021-09-27 06:40 | Day surgery (SDC) | payer MEDICARE, OTHER ==
[~2021-09-27] VITALS: Ht 182.9 cm; Wt 94.5 kg
[~2021-09-27 06:40] MED LIST changes: +CEFPODOXIME PR200 MG PO; +DOXYCYCLINE HY100 MG PO
--- NOTE | 2021-09-27 08:27 | NUR ---
09/27/21 0827 Ignacia Vazquez 0831-PATIENT ARRIVED TO PACU ON 2L NC RR EVEN. PATIENT NONAROUSABLE LAYING LEFT LATERAL. ABDOMEN SOFT IVF INFUSING. SR.
--- NOTE | 2021-09-27 08:48 | NUR ---
PT RESTING WAITING. PT HAS HAD PREVIOUS SCOPES, SEEMED TO DESIRE TO REST. PT REQUESTED LIGHT OFF, ALL ANSWERS YES-NO.GAVE BLESSING. WILL FOLLOW NEEDED
--- NOTE | 2021-09-27 11:08 | OR ---
[facility] [address] [place], [place] [address] Signed DATE OF OPERATION: 09/27/2021 SURGEON: Aparna Jiménez MD PREOPERATIVE DIAGNOSES: 1. Father with colon cancer around age 60. 2. Possible history of colonic polyps. POSTOPERATIVE DIAGNOSES: 1. Moderate sigmoid diverticulosis. 2. Minimal internal hemorrhoids. 3. Small single internal anal skin tag x1. PROCEDURE: Colonoscopy biopsy. ESTIMATED BLOOD LOSS: None. INDICATIONS: Junior is a 61-year-old gentleman, asked to see me for followup colonoscopy. He remembers a colonoscopy around age 54 in [place], [place]. He is pretty certain they removed colonic polyps at that time. His primary care provider asked him to come for a followup colonoscopy. He spoke of intermittent diarrhea associated with his HIV and his medications. He said his father had colon cancer right around age 60. Currently, Junior feels he is at his baseline bowel function. In the office, I gave Junior a pamphlet on colonoscopy. He recalls the nature of the test. There is risk including, but not limited to gas bloating, crampy abdominal pain, bleeding, perforation requiring surgery, and missed diagnosis. 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 His mouth is quite dry. We asked that an anesthesia provider help us with increased monitoring sedation with propofol. He had expressed understanding and wished to proceed. PROCEDURE NOTE: Junior was taken into our endoscopy suite and placed in the left lateral decubitus position. He was given monitored anesthesia care with propofol per our nurse talent acquisition lead. A digital rectal exam was performed and this was unremarkable. There were no external hemorrhoids or lesions. Prostate is moderately indurated, the right is a little more prominent than the left. The adult colonoscope had been introduced and advanced under direct visualization of the camera. It took extra propofol and abdominal Electronically Signed By: APARNA JIMÉNEZ MD 09/27/21 1108 PATIENT NAME: JUNIOR VEGA JR OPERATIVE REPORT DATE OF : 58 REPORT #: [id number] PHYSICIAN: APARNA JIMÉNEZ MD PCP: GALDINO LUQUE MD REPORT IS CONFIDENTIAL AND NOT TO BE RELEASED WITHOUT AUTHORIZATION [facility] [address] [place], [place] [address] Signed compression in order to get the scope around into the cecum itself. His prep was good. We could easily see the appendiceal orifice and ileocecal valve. The scope was then slowly withdrawn. We took pictures throughout for photodocumentation. He has moderate sigmoid diverticulosis. They are moderate in size, moderate in number, and scattered about. Once in the rectum, the scope had been retroflexed, he has very minimal internal hemorrhoid tissue. He had a single internal anal skin tag. After this, the gas was suctioned out and colonoscope removed. Junior tolerated the procedure quite well. RECOMMENDATIONS: Junior can follow up in 5 years for repeat colonoscopy given his family and personal history. Aparna Jiménez MD ALB/MODL /[id number] cc: MD Aparna Spence MD Copies: GALDINO LUQUE MD, ANDREW L MD ~ Electronically Signed By: APARNA JIMÉNEZ MD 09/27/21 1108 PATIENT NAME: JUNIOR VEGA LOLI OPERATIVE REPORT DATE OF : 58 REPORT #: [id number] PHYSICIAN: APARNA JIMÉNEZ MD PCP: GALDINO LUQUE MD REPORT IS CONFIDENTIAL AND NOT TO BE RELEASED WITHOUT AUTHORIZATION
== END 2021-09-27 09:15 | disposition home or self-care (01) ==
LOC: DS 06:40 → OPS 06:40
PROVIDERS: ATTEND Colon & Rectal Surgery
PROC: 0DJD8ZZ Inspection of Lower Intestinal Tract, Via Natural or Artificial Opening Endoscopic (ICD-10-PCS; principal; 2021-09-27 08:50)
DX: K57.30 Diverticulosis of large intestine without perforation or abscess without bleeding (principal); K64.4 Residual hemorrhoidal skin tags; K64.8 Other hemorrhoids; B20 Human immunodeficiency virus [HIV] disease; R19.7 Diarrhea, unspecified; I10 Essential (primary) hypertension; E78.5 Hyperlipidemia, unspecified; J44.9 Chronic obstructive pulmonary disease, unspecified; Z80.0 Family history of malignant neoplasm of digestive organs
CPT/HCPCS: J2001; J2704; J7121

== ENCOUNTER 2022-05-08 17:09 | Emergency (ER) | payer MEDICARE, OTHER ==
[~2022-05-08] VITALS: Ht 182.9 cm; Wt 94.3 kg
[2022-05-08] MEDS ORDERED: PREDNISONE20 MG PO (18:48)
[2022-05-08] MEDS ORDERED: VENTOLIN HFA18 GM INH (18:51)
--- NOTE | 2022-05-09 07:15 | EKG ---
[facility] [address] [facility] [place] [address] Signed Sinus tachycardia Otherwise normal ECG When compared with ECG of 09-AUG-2021 22:28, T wave amplitude has decreased in Lateral leads Confirmed by HEIDI SOFIA MD ([id number]) on 05/09/2022 7:15:24 AM Electronically Signed By: HEIDI SOFIA MD 05/09/22 0715 PATIENT NAME: DWAINE VEGA Electrocardiogram DATE OF : 58 PHYSICIAN: HEIDI SOFIA MD REPORT #: [id number] REPORT IS CONFIDENTIAL AND NOT TO BE RELEASED WITHOUT AUTHORIZATION
== END 2022-05-08 19:33 | disposition home or self-care (01) ==
LOC: ED 17:09
DX: J45.901 Unspecified asthma with (acute) exacerbation (principal); Z21 Asymptomatic human immunodeficiency virus [HIV] infection status; Z88.0 Allergy status to penicillin; Z79.899 Other long term (current) drug therapy
CPT/HCPCS: 36415; 71045; 80053; 83735; 83880; 84484; 85025; 93005; 93010; 94640; 96374; 99285-25; J2930

== ENCOUNTER 2023-02-25 16:15 | Emergency (ER) | payer MEDICARE, OTHER ==
[~2023-02-25] VITALS: Ht 182.9 cm; Wt 91.2 kg
[~2023-02-25 16:15] MED LIST changes: +ALBUTEROL2.5 MG/3 M INH; +BENZONATATE100 MG PO; +PREDNISONE20 MG PO
--- OUTSIDE RECORDS SUMMARY | 2023-02-25 16:18 | XMS ---
PreManage Notification: DWAINE VEGA Security Clinical Nurse Specialist Events No recent Security Events currently on file CRITERIA MET - WILL CARE PROVIDERS Blanka Dumont Housetrailer Servicer/Home Furnishings Sales Representative 10/23/2022-Current PHONE: [phone] GALDINO LUQUE [facility] Current PHONE: Unknown Colette has no Care Guidelines for this patient. [place] VISIT COUNT (12 MO.) Marvel Bhatt TOTAL 6 NOTE: Visits indicate total known visits. ED/UCC VISIT TRACKING (12 MO.) 02/25/2023 16:16 [facility] [place] TYPE: Emergency COMPLAINT: - DIFFICULTY BREATHING 11/02/2022 18:48 [facility] [place] TYPE: Emergency COMPLAINT: - CP DIAGNOSES: - Allergy status to penicillin - Chronic obstructive pulmonary disease, unspecified - Other chest pain - Other senior living (current) drug therapy - Polyneuropathy, unspecified 10/15/2022 01:06 [facility] [place] TYPE: Emergency COMPLAINT: - SOB DIAGNOSES: - Allergy status to penicillin - Chronic obstructive pulmonary disease with (acute) exacerbation - Contact with and (suspected) exposure to COVID-19 - Non-ST elevation (NSTEMI) myocardial infarction - Other senior living (current) drug therapy - Shortness of breath 08/08/2022 12:[address] [facility] [place] TYPE: Emergency COMPLAINT: - DIFFICULTY BREATHING DIAGNOSES: - Allergy status to penicillin - Chronic obstructive pulmonary disease with (acute) exacerbation - halfway (current) use of systemic steroids - Other senior living (current) drug therapy - Shortness of breath 07/02/2022 09:[address] [facility] [place] TYPE: Emergency COMPLAINT: - DIFFICULTY BREATHING DIAGNOSES: - Allergy status to penicillin - Chronic obstructive pulmonary disease with (acute) exacerbation - Other long term acute care registered nurse (current) drug therapy - Shortness of breath 05/08/2022 17:[address] [facility] [place] TYPE: Emergency COMPLAINT: - SHORTNESS OF BREATH DIAGNOSES: - Allergy status to penicillin - Other senior living (current) drug therapy - Shortness of breath - Unspecified asthma with (acute) exacerbation INPATIENT VISIT TRACKING (12 MO.) 10/18/2022 17:07 [facility] TYPE: Internal Medicine DIAGNOSES: - Acute pericarditis, unspecified - Acute respiratory failure with hypoxia - Chronic obstructive pulmonary disease with (acute) exacerbation - Elevated white blood cell count, unspecified - Encounter for screening, unspecified - Laryngeal spasm - Personal history of malignant neoplasm of unspecified site of lip, oral cavity, and pharynx - Takotsubo syndrome - CP, r/o vocal cord distress 10[facility]15[facility]2022 09:39 [facility] COMPLAINT: - NSTEMI DIAGNOSES: 0. Hypertensive emergency 1. Hypertensive emergency 2. Disease of pericardium, unspecified 3. Chronic obstructive pulmonary disease with (acute) exacerbation 4. Takotsubo syndrome 5. Acute respiratory distress 6. Unspecified asthma, uncomplicated 7. Hyperlipidemia, unspecified 8. Essential (primary) hypertension 9. Polyneuropathy, unspecified 10. Tachycardia, unspecified 11. Myocarditis, unspecified 12. manager terminal (current) use of systemic steroids 14. Allergy status to penicillin 15. Personal history of malignant neoplasm of larynx 16. Personal history of nicotine dependence [email or web address]
[2023-02-25 16:42] LABS: BASOPHILS 0.7 % (0-2); EOSINOPHILS 6.5 % (0-6); HEMATOCRIT 45.3 % (35.0-50.0); HEMOGLOBIN 15.3 g/dL (12.0-18.0); LYMPHOCYTES 17.4 % (24-44); MCH 31.8 (27-36); MCHC 33.8 g/dl (30-36); MCV 94.1 fl (81-99); MONOCYTES 8.4 % (0-12); PLATELET COUNT 327 K/uL (140-440); RBC 4.82 M/ul (4.3-5.7); RDW 13.8 (10.5-15.0)
[2023-02-25 17:03] LABS: ALBUMIN 3.9 g/dL (3.4-5.0); ALBUMIN/GLOBULIN RATIO 1.15 (1.1-2.4); ANION GAP 12.2 (7-21); BILIRUBIN, TOTAL 0.3 ng/dL (0.2-1.0); BUN/CREATININE RATIO 14.41 (6.0-28.6); CALCIUM 8.8 mg/dL (8.5-10.1); CREATININE, SERUM 1.11 mg/dL (0.70-1.30); POTASSIUM 4.2 mmol/L (3.5-5.1); PROTEIN, TOTAL 7.3 g/dL (6.4-8.2)
[2023-02-25 17:18] LABS: INFLUENZA B NAA NEGATIVE (NEGATIVE); RESPIRATORY SYNCYTIAL VIR NAA NEGATIVE (NEGATIVE)
[2023-02-25] MEDS ORDERED: PREDNISONE20 MG PO (19:09)
[2023-02-25 19:19] VITALS: BP 152/103
--- NOTE | 2023-02-26 14:41 | EKG ---
[facility] [address] [place] [address] Signed Normal sinus rhythm Normal ECG When compared with ECG of 02-NOV-2022 18:52, Nonspecific T wave abnormality no longer evident in Anterolateral leads Confirmed by DAVID SHANKS MD ([id number]) on 02/26/2023 2:41:10 PM Electronically Signed By: DAVID SHANKS 02/26/23 1441 PATIENT NAME: DWAINE VEGA JR Electrocardiogram DATE OF : 58 PHYSICIAN: DAVID SHANKS REPORT #: [id number] REPORT IS CONFIDENTIAL AND NOT TO BE RELEASED WITHOUT AUTHORIZATION
== END 2023-02-25 19:22 | disposition home or self-care (01) ==
LOC: ED 16:15
PROVIDERS: Emergency Medicine
DX: J44.1 Chronic obstructive pulmonary disease with (acute) exacerbation (principal); Z88.0 Allergy status to penicillin; Z79.899 Other long term (current) drug therapy; Z20.822 Contact with and (suspected) exposure to COVID-19
CPT/HCPCS: 36415; 71045; 80053; 83735; 83880; 84484; 85025; 87502; 93005; 93010; 94640; C9803; J2930; U0002

== ENCOUNTER 2023-05-10 15:43 | Emergency (ER) | payer MEDICARE, OTHER ==
[~2023-05-10] VITALS: Ht 182.9 cm; Wt 86.1 kg
--- OUTSIDE RECORDS SUMMARY | 2023-05-10 15:44 | XMS ---
PreManage Notification: DWAINE VEGA Security Cigarette Filter Inspector Events No recent Security Events currently on file CRITERIA MET - [facility] - [facility] - 2 Visits in 30 Days CARE PROVIDERS Blanka Dumont Central Office Maintainer/Certified Nuclear Medicine Technologist 02/22/2023-Current PHONE: [phone] [place], [facility]/Center: [facility] ([facility]) PHONE: [phone] GALDINO LUQUE Family Medicine Current PHONE: Unknown Colette has no Care Guidelines for this patient. E.D. VISIT COUNT (12 MO.) 7 SHELBI Bhatt TOTAL 7 NOTE: Visits indicate total known visits. ED/UCC VISIT TRACKING (12 MO.) 05/10/2023 15:43 [facility] [place] TYPE: Emergency COMPLAINT: - SHORTNESS OF BREATH 05/06/2023 10:47 [facility] [place] TYPE: Emergency COMPLAINT: - DIFFICULTY BREATHING DIAGNOSES: - Allergy status to penicillin - Chronic obstructive pulmonary disease, unspecified - Other usp (current) drug therapy - Personal history of malignant neoplasm of larynx - Shortness of breath - Unspecified asthma with (acute) exacerbation 02/25/2023 16:[address] [facility] [place] TYPE: Emergency COMPLAINT: - DIFFICULTY BREATHING DIAGNOSES: - Allergy status to penicillin - Chronic obstructive pulmonary disease with (acute) exacerbation - Contact with and (suspected) exposure to COVID-19 - Other usp (current) drug therapy - Shortness of breath 11/02/2022 18:48 [facility] [place] TYPE: Emergency COMPLAINT: - CP DIAGNOSES: - Allergy status to penicillin - Chronic obstructive pulmonary disease, unspecified - Other chest pain - Other joint terminal attack controller (current) drug therapy - Polyneuropathy, unspecified 10/15/2022 01:06 [facility] [place] TYPE: Emergency COMPLAINT: - SOB DIAGNOSES: - Allergy status to penicillin - Chronic obstructive pulmonary disease with (acute) exacerbation - Contact with and (suspected) exposure to COVID-19 - Non-ST elevation (NSTEMI) myocardial infarction - Other usp (current) drug therapy - Shortness of breath 08/08/2022 12:24 [facility] [place] TYPE: Emergency COMPLAINT: - DIFFICULTY BREATHING DIAGNOSES: - Allergy status to penicillin - Chronic obstructive pulmonary disease with (acute) exacerbation - retirement (current) use of systemic steroids - Other joint terminal attack controller (current) drug therapy - Shortness of breath 07/02/2022 09:30 [facility] [place] TYPE: Emergency COMPLAINT: - DIFFICULTY BREATHING DIAGNOSES: - Allergy status to penicillin - Chronic obstructive pulmonary disease with (acute) exacerbation - Other usp (current) drug therapy - Shortness of breath INPATIENT VISIT TRACKING (12 MO.) 10/18/2022 17:07 [facility] TYPE: Internal Medicine DIAGNOSES: - Acute pericarditis, [...] r/o vocal cord distress [facility] COMPLAINT: - NSTEMI DIAGNOSES: 0. Hypertensive emergency 1. Hypertensive emergency 2. Disease of pericardium, unspecified 3. Chronic obstructive pulmonary disease with (acute) exacerbation 4. Takotsubo syndrome 5. Acute respiratory distress 6. Unspecified asthma, uncomplicated 7. Hyperlipidemia, unspecified 8. Essential (primary) hypertension 9. Polyneuropathy, unspecified 10. Tachycardia, unspecified 11. Myocarditis, unspecified 12. retirement (current) use of systemic steroids 14. Allergy status to penicillin 15. Personal history of malignant neoplasm of larynx 16. Personal history of nicotine dependence [email or web address]
[2023-05-10] MEDS ORDERED: ALBUTEROL/IPRATROPIUM 3 ML NEB INH PRN (16:00)
[2023-05-10] MEDS ORDERED: ALBUTEROL SULFATE 0.5% 2.5 MG/0.5 ML VIAL INH ONE (16:00)
[2023-05-10 16:32] LABS: BASOPHILS 0.5 % (0-2); HEMATOCRIT 42.4 % (35.0-50.0); LYMPHOCYTES 19.2 % (24-44); MCH 31.4 (27-36); MCV 95.2 fl (81-99); MONOCYTES 10.7 % (0-12); NEUTROPHILS 66.6 % (39-80); PLATELET COUNT 318 K/uL (140-440); RBC 4.45 M/ul (4.3-5.7); RDW 14.5 (10.5-15.0)
[2023-05-10 16:41] LABS: ALBUMIN 3.6 g/dL (3.4-5.0); ALBUMIN/GLOBULIN RATIO 1.03 (1.1-2.4); ANION GAP 10.5 (7-21); BILIRUBIN, TOTAL 0.4 ng/dL (0.2-1.0); BUN/CREATININE RATIO 16.26 (6.0-28.6); CALCIUM 9.3 mg/dL (8.5-10.1); CREATININE, SERUM 1.23 mg/dL (0.70-1.30); MAGNESIUM 2.1 mg/dL (1.8-2.4); POTASSIUM 3.5 mmol/L (3.5-5.1); PROTEIN, TOTAL 7.1 g/dL (6.4-8.2)
[2023-05-10 17:12] VITALS: BP 153/80
== END 2023-05-10 17:13 | disposition home or self-care (01) ==
LOC: ED 15:43
PROVIDERS: Emergency Medicine
DX: J44.1 Chronic obstructive pulmonary disease with (acute) exacerbation (principal); Z21 Asymptomatic human immunodeficiency virus [HIV] infection status; G62.9 Polyneuropathy, unspecified; Z88.0 Allergy status to penicillin; Z79.51 Long term (current) use of inhaled steroids; Z79.899 Other long term (current) drug therapy
CPT/HCPCS: 36415; 71045; 80053; 83735; 85025; 94644; 99285-25

== ENCOUNTER 2023-08-18 16:40 | Emergency (ER) | payer MEDICARE, OTHER ==
[~2023-08-18] VITALS: Ht 182.9 cm; Wt 87.8 kg
[~2023-08-18 16:40] MED LIST changes: +AZITHROMYCIN250 MG PO; +BREYNA 160-4.10.3 GM INH; +COLCRYS0.6 MG PO; +METHYLPREDNISOLO4 M1 PO; +METRONIDAZOLE500 MG PO; +SEROQUEL50 MG PO; +SILDENAFIL CITR50 MG PO
--- OUTSIDE RECORDS SUMMARY | 2023-08-18 16:42 | XMS ---
PreManage Notification: DWAINE VEGA Security Puppy Sitter Events No recent Security Events currently on file CRITERIA MET - WILLP CARE PROVIDERS Blanka Dumont Java Technical Architect/Technical Document Writer 02/22/2023-Current PHONE: [phone] [place], [facility]/Center: [facility] ([facility]) PHONE: [phone] JESSIE BUENO Physician Postbed Stitcher Current PHONE: [phone] Colette has no Care Guidelines for this patient. E.D. VISIT COUNT (12 MO.) 7 SHELBI Bhatt TOTAL 7 NOTE: Visits indicate total known visits. ED/UCC VISIT TRACKING (12 MO.) 08/18/2023 16:41 [facility] [place] TYPE: Emergency COMPLAINT: - ALLERGIC REACTION 06/01/2023 04:56 [facility] [place] TYPE: Emergency COMPLAINT: - SOB,UNABLE TO URINATE 05/10/2023 15:43 [facility] [place] TYPE: Emergency COMPLAINT: - SHORTNESS OF BREATH DIAGNOSES: - Allergy status to penicillin - Chronic obstructive pulmonary disease with (acute) exacerbation - intermodal customer service (current) use of inhaled steroids - Other lobsterman (current) drug therapy - Polyneuropathy, unspecified - Shortness of breath 05/06/2023 10:47 [facility] [place] TYPE: Emergency COMPLAINT: - DIFFICULTY BREATHING DIAGNOSES: - Allergy status to penicillin - Chronic obstructive pulmonary disease, unspecified - Other lobsterman (current) drug therapy - Personal history of malignant neoplasm of larynx - Shortness of breath - Unspecified asthma with (acute) exacerbation 02/25/2023 16:16 [facility] [place] TYPE: Emergency COMPLAINT: - DIFFICULTY BREATHING DIAGNOSES: - Allergy status to penicillin - Chronic obstructive pulmonary disease with (acute) exacerbation - Contact with and (suspected) exposure to COVID-19 - Other shelter (current) drug therapy - Shortness of breath 11/02/2022 18:48 [facility] [place] TYPE: Emergency COMPLAINT: - CP DIAGNOSES: - Allergy status to penicillin - Chronic obstructive pulmonary disease, unspecified - Other chest pain - Other lobsterman (current) drug therapy - Polyneuropathy, unspecified 10/15/2022 01:06 [facility] [place] TYPE: Emergency COMPLAINT: - SOB DIAGNOSES: - Allergy status to penicillin - Chronic obstructive pulmonary disease with (acute) exacerbation - Contact with and (suspected) exposure to COVID-19 - Non-ST elevation (NSTEMI) myocardial infarction - Other shelter (current) drug therapy - Shortness of breath INPATIENT VISIT TRACKING (12 MO.) 06/01/2023 04:57 [facility] [place] TYPE: Observation COMPLAINT: - PNEUMONIA DIAGNOSES: - Allergy status to penicillin - Chronic obstructive pulmonary disease with (acute) lower respiratory infection - Pneumonia, unspecified organism 10/18/2022 17:07 [facility] TYPE: Internal Medicine DIAGNOSES: - Acute [...] r/o vocal cord distress 10/15/2022 09:39 [facility] [place] [facility]: Medical Surgical COMPLAINT: - NSTEMI DIAGNOSES: 0. Hypertensive emergency 1. Hypertensive emergency 2. Disease of pericardium, unspecified 3. Chronic obstructive pulmonary disease with (acute) exacerbation 4. Takotsubo syndrome 5. Acute respiratory distress 6. Unspecified asthma, uncomplicated 7. Hyperlipidemia, unspecified 8. Essential (primary) hypertension 9. Polyneuropathy, unspecified 10. Tachycardia, unspecified 11. Myocarditis, unspecified 12. intermodal customer service (current) use of systemic steroids 14. Allergy status to penicillin 15. Personal history of malignant neoplasm of larynx 16. Personal history of nicotine dependence [email or web address]
[2023-08-18] MEDS ORDERED: FAMOTIDINE 20 MG TAB PO ONE (17:00)
[2023-08-18] MEDS ORDERED: diphenhydrAMINE HCL 50 MG CAP PO ONE (17:00)
[2023-08-18] MEDS ORDERED: predniSONE 20 MG TAB PO ONE (17:00)
[2023-08-18 18:23] VITALS: BP 140/90
== END 2023-08-18 18:24 | disposition home or self-care (01) ==
LOC: ED 16:40
DX: L25.9 Unspecified contact dermatitis, unspecified cause (principal); J44.9 Chronic obstructive pulmonary disease, unspecified; Z88.0 Allergy status to penicillin; Z79.899 Other long term (current) drug therapy
CPT/HCPCS: 99283; J7512; Q0163

== ENCOUNTER 2023-11-28 01:44 | Emergency (ER) | payer MEDICARE, OTHER ==
[~2023-11-28] VITALS: Ht 182.9 cm; Wt 81.0 kg
[~2023-11-28 01:44] MED LIST changes: +PERCOCET 5-3251 EACH PO
[2023-11-28] MEDS ORDERED: ALBUTEROL SULFATE 0.5% 2.5 MG/0.5 ML VIAL INH ONE (02:00)
[2023-11-28] MEDS ORDERED: methylPREDNISolone SOD SUCC 125 MG/2 ML VIAL IV ONE (02:00)
[2023-11-28] MEDS ORDERED: ALBUTEROL/IPRATROPIUM 3 ML NEB INH ONE (02:00)
[2023-11-28] MEDS ORDERED: AZITHROMYCIN 250 MG HOME.PACK PO ONE (03:45)
[2023-11-28] MEDS ORDERED: methylPREDNISolone 4 MG HOME.PACK PO ONE (03:45)
[2023-11-28 04:15] VITALS: BP 161/81
[2023-11-28] MEDS ORDERED: METHYLPREDNISOLO4 M1 PO (08:00)
== END 2023-11-28 04:15 | disposition home or self-care (01) ==
LOC: ED 01:44
DX: J44.1 Chronic obstructive pulmonary disease with (acute) exacerbation (principal); J44.89 Other specified chronic obstructive pulmonary disease; Z79.51 Long term (current) use of inhaled steroids; Z79.899 Other long term (current) drug therapy; Z79.52 Long term (current) use of systemic steroids; Z88.0 Allergy status to penicillin
CPT/HCPCS: 71045; 94640; 94645; 96374; 99285-25; J2919; U0002

== ENCOUNTER 2024-01-22 10:37 | Emergency (ER) | payer MEDICARE, OTHER ==
[~2024-01-22] VITALS: Ht 182.9 cm; Wt 90.0 kg
[2024-01-22] MEDS ORDERED: EPIPEN AUTO INJECTOR 0.3 MG/0.3 ML ML IM ONE ×2 (10:40→11:00)
[2024-01-22] MEDS ORDERED: EPINEPHRINE 2.25% 0.5 ML AMP ONE (10:48)
[2024-01-22] MEDS ORDERED: ALBUTEROL/IPRATROPIUM 3 ML NEB INH ONE (11:00)
[2024-01-22] MEDS ORDERED: methylPREDNISolone SOD SUCC 125 MG/2 ML VIAL IV ONE (11:00)
[2024-01-22] MEDS ORDERED: diphenhydrAMINE HCL 50 MG/ML VIAL IV ONE (11:00)
[2024-01-22] MEDS ORDERED: FAMOTIDINE 20 MG/ 2 ML VIAL IV ONE (11:00)
[2024-01-22] MEDS ORDERED: EPINEPHRINE 2.25% 0.5 ML AMP INH ONE (11:00)
[2024-01-22 11:08] LABS: BASOPHILS 0.9 % (0-2); HEMATOCRIT 38.3 % (35.0-50.0); HEMOGLOBIN 12.8 g/dL (12.0-18.0); LYMPHOCYTES 18.3 % (24-44); MCH 29.8 (27-36); MCHC 33.3 g/dl (30-36); MCV 89.5 fl (81-99); MONOCYTES 7.3 % (0-12); NEUTROPHILS 70.5 % (39-80); PLATELET COUNT 612 K/uL (140-440); RBC 4.28 M/ul (4.3-5.7); RDW 14.3 (10.5-15.0)
[2024-01-22 11:26] LABS: ALBUMIN 3.1 g/dL (3.4-5.0); ALBUMIN/GLOBULIN RATIO 0.7 (1.1-2.4); ANION GAP 10.5 (7-21); BILIRUBIN, TOTAL 0.2 ng/dL (0.2-1.0); BUN/CREATININE RATIO 16.31 (6.0-28.6); CALCIUM 9.3 mg/dL (8.5-10.1); CREATININE, SERUM 1.41 mg/dL (0.70-1.30); POTASSIUM 3.5 mmol/L (3.5-5.1); PROTEIN, TOTAL 7.5 g/dL (6.4-8.2)
[2024-01-22] MEDS ORDERED: CEFTRIAXONE/SODIUM CHLORIDE 2 GM/100 ML PIGGYBACK IV ONE (11:30)
[2024-01-22] MEDS ORDERED: CEFDINIR300 MG PO (11:30)
[2024-01-22] MEDS ORDERED: CLEOCIN HCL300 MG PO (11:35)
[2024-01-22 13:10] VITALS: BP 193/115
== END 2024-01-22 13:10 | disposition home or self-care (01) ==
LOC: ED 10:37
PROVIDERS: Emergency Medicine
DX: T78.40XA Allergy, unspecified, initial encounter (principal); J18.9 Pneumonia, unspecified organism; J44.0 Chronic obstructive pulmonary disease with (acute) lower respiratory infection; G62.9 Polyneuropathy, unspecified; Z21 Asymptomatic human immunodeficiency virus [HIV] infection status; Z85.818 Personal history of malignant neoplasm of other sites of lip, oral cavity, and pharynx; Z92.3 Personal history of irradiation; Z88.0 Allergy status to penicillin; Z79.51 Long term (current) use of inhaled steroids; Z79.899 Other long term (current) drug therapy
CPT/HCPCS: 36415; 71045; 80053; 85025; 94640; 96374; 96375; 99285-25; A9270; J0696; J1200; J2919

== ENCOUNTER 2024-03-02 02:38 | Observation (INO) | payer MEDICARE, OTHER ==
[2024-03-02] VITALS (8 sets, daily range): BP systolic 106–139; BP diastolic 61–69
[~2024-03-02] VITALS: Ht 182.9 cm; Wt 82.4 kg
[~2024-03-02 02:38] MED LIST changes: +ALBUTEROL/IPRATROPIUM 3 ML NEB INH SCH; +BENADRYL25 MG PO; +CEFDINIR300 MG PO; +CLEOCIN HCL300 MG PO; -PRINIVIL20 MG PO; +ZESTRIL20 MG PO
[2024-03-02] MEDS ORDERED: ALBUTEROL/IPRATROPIUM 3 ML NEB ONE (02:39)
--- OUTSIDE RECORDS SUMMARY | 2024-03-02 02:44 | XMS ---
PreManage Notification: DWAINE VEGA Security Tour Operator Events No recent Security Events currently on file CRITERIA MET - [facility] - 2 Visits in 30 Days CARE PROVIDERS Blanka Dumont Entry Analyst/Earth Burner 01/24/2024-Current PHONE: [phone] [place], [facility]/Center: [facility] ([facility]) PHONE: [phone] JESSIE BUENO Physician Tool Room Gear Machine Operator Current PHONE: [phone] Colette has no Care Guidelines for this patient. E.D. VISIT COUNT (12 MO.) 9 [facility] TOTAL 9 NOTE: Visits indicate total known visits. ED/UCC VISIT TRACKING (12 MO.) 03/02/2024 02:38 [facility] [place] TYPE: Emergency COMPLAINT: - DIFFICULTY BREATHING 02/05/2024 15:48 [facility] [place] TYPE: Emergency COMPLAINT: - ALLERGIC REACTION,WHEEZING DIAGNOSES: - Allergy status to penicillin - Chronic obstructive pulmonary disease, unspecified - Other intermediate accountant (current) drug therapy - Polyneuropathy, unspecified - Rash and other nonspecific skin eruption 01/22/2024 10:38 [facility] [place] TYPE: Emergency COMPLAINT: - POSS ALLERGIC REACTION DIAGNOSES: - Allergy status to penicillin - Allergy, unspecified, initial encounter - Chronic obstructive pulmonary disease with (acute) lower respiratory infection - 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 - Other skilled nursing (current) drug therapy - Personal history of irradiation - Personal history of malignant neoplasm of other sites of lip, oral cavity, and pharynx - Pneumonia, unspecified organism - Polyneuropathy, unspecified - Shortness of breath 11/28/2023 01:44 [facility] [place] TYPE: Emergency COMPLAINT: - SOB DIAGNOSES: - Allergy status to penicillin - Chronic obstructive pulmonary disease with (acute) exacerbation - 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 - jail (current) use of systemic steroids - Other intermediate accountant (current) drug therapy - Other specified chronic obstructive pulmonary disease - Shortness of breath 10/19/2023 03:04 [facility] [place] TYPE: Emergency COMPLAINT: - FALL DIAGNOSES: - Allergy status to penicillin - Chronic obstructive pulmonary disease, unspecified - Displaced fracture of greater tuberosity of right humerus, initial encounter for closed fracture - Other displaced fracture of upper end of right humerus, initial encounter for closed fracture - Other intermediate accountant (current) drug therapy - Pain in right shoulder - Unspecified fall, initial encounter 08/18/2023 16:41 [facility] [place] TYPE: Emergency COMPLAINT: - ALLERGIC REACTION DIAGNOSES: - Allergy status to penicillin - Allergy, unspecified, initial encounter - Chronic obstructive pulmonary disease, unspecified - Other skilled nursing (current) drug therapy - Unspecified contact dermatitis, unspecified cause 06/01/2023 04:56 [facility] [place] TYPE: Emergency COMPLAINT: - SOB,UNABLE TO URINATE 05/10/2023 15:43 [facility] [place] TYPE: Emergency COMPLAINT: - SHORTNESS OF BREATH DIAGNOSES: - Allergy status to penicillin - Chronic obstructive pulmonary disease with (acute) exacerbation - 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 - Other intermediate accountant (current) drug therapy - Polyneuropathy, unspecified - Shortness of breath 05/06/2023 10:47 [facility] [place] TYPE: Emergency COMPLAINT: - DIFFICULTY BREATHING DIAGNOSES: - Allergy status to penicillin - Chronic obstructive pulmonary disease, unspecified - Other intermediate accountant (current) drug therapy - Personal history of malignant neoplasm of larynx - Shortness of breath - Unspecified asthma with (acute) exacerbation INPATIENT VISIT TRACKING (12 MO.) 06/01/2023 04:57 [facility] [place] TYPE: Observation COMPLAINT: - PNEUMONIA DIAGNOSES: - Allergy status to penicillin - Chronic obstructive pulmonary disease with (acute) lower respiratory infection - Pneumonia, unspecified organism [email or web address]
[2024-03-02] MEDS ORDERED: IPRATROPIUM BROMIDE 2.5 ML VIAL INH ONE (03:00)
[2024-03-02] MEDS ORDERED: methylPREDNISolone SOD SUCC 125 MG/2 ML VIAL IV ONE (03:00)
[2024-03-02] MEDS ORDERED: ALBUTEROL SULFATE 0.5% 2.5 MG/0.5 ML VIAL INH ONE (03:00)
[2024-03-02] MEDS ORDERED: HYDROmorphone HCL 1 MG/ML SYR IV PRN ×2 (03:00→05:15)
[2024-03-02] MEDS ORDERED: ondansetron HCL 4 MG/2 ML VIAL IV ONE (03:00)
[2024-03-02 03:01] LABS: BASOPHILS 0.4 % (0-2); EOSINOPHILS 1.2 % (0-6); HEMOGLOBIN 14.4 g/dL (12.0-18.0); MCH 30.3 (27-36); MCHC 33.4 g/dl (30-36); MCV 90.5 fl (81-99); MONOCYTES 6.8 % (0-12); NEUTROPHILS 86.6 % (39-80); PLATELET COUNT 306 K/uL (140-440); RBC 4.75 M/ul (4.3-5.7)
[2024-03-02 03:22] LABS: ALBUMIN 3.6 g/dL (3.4-5.0); ALBUMIN/GLOBULIN RATIO 0.92 (1.1-2.4); ANION GAP 17.1 (7-21); BILIRUBIN, TOTAL 0.6 ng/dL (0.2-1.0); BUN/CREATININE RATIO 13.44 (6.0-28.6); CREATININE, SERUM 1.19 mg/dL (0.70-1.30); POTASSIUM 4.1 mmol/L (3.5-5.1); PROTEIN, TOTAL 7.5 g/dL (6.4-8.2)
[2024-03-02 04:15] LABS: INFLUENZA B NAA NEGATIVE (NEGATIVE); RESPIRATORY SYNCYTIAL VIR NAA NEGATIVE (NEGATIVE)
[2024-03-02] MEDS ORDERED: CEFTRIAXONE/SODIUM CHLORIDE 2 GM/100 ML PIGGYBACK IV ONE (04:15)
[2024-03-02] MEDS ORDERED: AZITHROMYCIN 500 MG in DEXTROSE 5% 250 ML IV ONE (04:15)
[2024-03-02 04:47] LABS: LACTIC ACID, BLOOD 1.2 mmol/L (0.4-2.0)
[2024-03-02] MEDS ORDERED: AZITHROMYCIN 500 MG VIAL ONE (04:47)
[2024-03-02] MEDS ORDERED: ALBUTEROL SULFATE 0.083% 3 ML VIAL INH PRN (05:30)
--- NOTE | 2024-03-02 05:35 | NUR ---
REPORT RECEIVED FROM ABDIRASHID MACE RN, PT ALERT, ORIENTENED, TRANSFER VIA W/C WITH CLOTHING IN BELONGING BAGS AND CELL PHONE IN HAND VIA W/C TO ROOM 116, TRANSFERED TO BED, GAIT WEAK, SIDE RAILS UP X 2, BED WT DONE, BED LOW POSITION AND CALL LIGHT IN REACH.
--- NOTE | 2024-03-02 06:32 | NUR ---
PT FELL ASLEEP AFTER ASSESSMENT DONE, IV A/B COMPLETED, SL IN RIGHT FOREARM FLUSHED, RESP EVEN AND REG, HOB ELEVATED 28 DEGREES, CPOX AT 95% ON RA, HR 104, CALL LIGHT IN REACH.
--- NOTE | 2024-03-02 07:29 | NUR ---
REPORT FROM TALHA SAUCEDO.
[2024-03-02] MEDS ORDERED: ALBUTEROL SULFATE 0.042% 1.25 MG/3 ML VIAL INH SCH (08:00)
[2024-03-02] MEDS ORDERED: BUDESONIDE 0.5 MG/2 ML VIAL INH SCH ×2 (08:00)
[2024-03-02] MEDS ORDERED: ALBUTEROL/IPRATROPIUM 3 ML NEB INH SCH (08:00)
[2024-03-02] MEDS ORDERED: ENOXAPARIN SODIUM 40 MG/0.4 ML SYR SUB-Q SCH (09:05)
--- NOTE | 2024-03-02 09:11 | NUR ---
PATIENT IS SLEEPING WITH REGULAR RESPIRATIONS.
[2024-03-02] MEDS ORDERED: ACETAMINOPHEN 325 MG TAB PO PRN (09:15)
[2024-03-02] MEDS ORDERED: ondansetron HCL 4 MG/2 ML VIAL IV PRN (09:15)
--- NOTE | 2024-03-02 09:20 | NUR ---
Spoke with Junior. He lives in a 2 story apartment and uses both floors. He has a walker and a wc. He uses food stamps and the food bank. 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 He has a states paid cg through [facility] and has 62 hrs a cg service per week. Pt plans on dc to home tomorrow and denies any needs. He uses the [facility]. Jacqueline Morrell is his cg. He denies financial issues. He never runs out of food.
--- NOTE | 2024-03-02 09:32 | EKG ---
[facility] [address] [place] [address] Signed Sinus tachycardia Right atrial enlargement Borderline ECG When compared with ECG of 02-JUN-2023 12:44, premature ventricular complexes are no longer present Confirmed by Luis Manuel Sarmiento MD () on 03/02/2024 9:32:16 AM Electronically Signed By: LUIS MANUEL SARMIENTO MD 03/02/24 0932 PATIENT NAME: DWAINE VEGA Electrocardiogram DATE OF : 58 PHYSICIAN: LUIS MANUEL SARMIENTO MD REPORT #: [id number] REPORT IS CONFIDENTIAL AND NOT TO BE RELEASED WITHOUT AUTHORIZATION
--- NOTE | 2024-03-02 10:01 | NUR ---
UR CLINICAL REVIEW: 2 MN FOR VERSALUS/MCG-MEETS OBS CRITERIA FOR COPD MEDICARE OBS 03/02/24 @ 0906 ORDER MATCHES REG NO AUTH REQUIRED PER MEDICARE GUIDELINES DISCHARGE TO HOME WHEN STABLE 03/03/24
--- NOTE | 2024-03-02 10:04 | NUR ---
administered scheduled lovenox. pt denies needs att.
--- NOTE | 2024-03-02 10:30 | NUR ---
GOT PATIENT A POPCICLE AND GLASS OF ICE. PATIENT ATE THE POPCICLE. WASHED HIS FACE AND BRUSHED HIS TEETH. PATIENT HAS HIS EYES CLOSED.
[2024-03-02] MEDS ORDERED: VENTOLIN HFA18 GM INH (11:12)
[2024-03-02] MEDS ORDERED: SILDENAFIL CITR50 MG PO (11:14)
[2024-03-02] MEDS ORDERED: COLCRYS0.6 MG PO (11:14)
[2024-03-02] MEDS ORDERED: LOPERAMIDE2 MG PO (11:15)
[2024-03-02] MEDS ORDERED: GABAPENTIN100 MG PO (11:18)
--- NOTE | 2024-03-02 11:22 | NUR ---
PATIENT IS RESTING IN BED, SLEEPING OFF AND ON.
[2024-03-02] MEDS ORDERED: TRIUMEQ TABLET1 EACH PO (11:31)
[2024-03-02] MEDS ORDERED: PHARMACY RENAL DOSE ADJUSTMENT 1 DOSE MISC PO SCH (12:00)
--- NOTE | 2024-03-02 12:20 | NUR ---
VISITED DURING SPIRITUAL CARE ROUNDS. PT APPEARED TO BE SLEEPING. DID NOT DISTURB. PROVIDED PRAYER.
--- NOTE | 2024-03-02 15:12 | NUR ---
PATIENT IS SLEEPING WITH REGULAR RESPIRATIONS.
--- NOTE | 2024-03-02 16:21 | NUR ---
PATIENT WOKE UP, ATE 75% OF LUNCH, VOIDED FINALLY. UA SENT TO LAB. PATIENT GIVEN 650MG OF PO TYLENOL FOR 7/10 LEFT SIDED PAIN FROM COUGHING. PATIENT REMAINS ON ROOM AIR AT 97%
[2024-03-02 16:34] LABS: BILIRUBIN, URINE NEGATIVE (negative); BLOOD/HGB, URINE NEGATIVE (Negative); KETONE, URINE NEGATIVE (Negative); LEUK ESTERASE, URINE NEGATIVE (negative); NITRITE, URINE NEGATIVE (negative); PH, URINE 6.5 (5-7)
[2024-03-02 16:49] LABS: AMPHETAMINES, URINE POSITIVE (NEGATIVE); BARBITURATES, URINE NEGATIVE (NEGATIVE); BENZODIAZEPINE, URINE NEGATIVE (NEGATIVE); BUPRENORPHINE, URINE NEGATIVE (NEGATIVE); CANNABINOID, URINE NEGATIVE (NEGATIVE); COCAINE, URINE NEGATIVE (NEGATIVE); ECSTASY, URINE POSITIVE (NEGATIVE); FENTANYL, URINE NEGATIVE (NEGATIVE); METHADONE, URINE NEGATIVE (NEGATIVE); OPIATES, URINE NEGATIVE (NEGATIVE); OXYCODONE, URINE NEGATIVE (NEGATIVE); PHENCYCLIDINE, URINE NEGATIVE (NEGATIVE)
--- NOTE | 2024-03-02 19:20 | NUR ---
REPORT RECIEVED FROM DAY SHIFT RN. PATIENT RESTING IN BED. DENIES NEEDS AT THIS TIME. CALL LIGHT IN REACH.
--- NOTE | 2024-03-02 20:10 | NUR ---
CALL LIGHT ANSWERED. PATIENT REQUESTING BREATHING TREATMENT. THIS RN ADMINISTERED BREATHING TREATMENT PER RT REQUEST. VS OBTAINED AND RECORDED. PATIENT HAS NO FURTHER NEEDS AT THIS TIME. RT IN ROOM. CALL LIGHT IN REACH.
--- NOTE | 2024-03-02 22:03 | NUR ---
PATIENT RESTING IN BED WITH EYES CLOSED. RESPIRATIONS EVEN AND UNLABORED. CALL LIGHT IN REACH.
--- NOTE | 2024-03-02 23:02 | NUR ---
PATIENT RESTING IN BED ON BACK WITH EYES CLOSED. RESPIRATIONS EVEN AND UNLABORED. CALL LIGHT IN REACH.
--- NOTE | 2024-03-03 00:37 | NUR ---
PATIENT RESTING IN BED ON JULIÁN WITH EYES CLOSED. RESPIRATIONS EVEN AND UNLABORED. CALL LIGHT IN REACH.
[2024-03-03 02:19] VITALS: BP 115/61
[2024-03-03 02:21] VITALS: BP 115/61
--- NOTE | 2024-03-03 02:28 | NUR ---
PATIENT RESTING IN BED. PATIENT UP TO BATHROOM INDEPENDENTLY TO VOID INTO URINAL. PATIENT BACK TO BED. VS AND I&Os OBTAINED AND RECORDED. NO FURTHER NEEDS. CALL LIGHT IN REACH.
--- NOTE | 2024-03-03 05:00 | NUR ---
PATIENT RESTING IN BED WITH EYES CLOSED. RESPIRATIONS EVEN AND UNLABORED. CALL LIGHT IN REACH.
[2024-03-03 05:27] VITALS: BP 115/65
[2024-03-03 05:30] LABS: BASOPHILS 0.2 % (0-2); HEMATOCRIT 36.2 % (35.0-50.0); HEMOGLOBIN 12.1 g/dL (12.0-18.0); LYMPHOCYTES 3.2 % (24-44); MCH 30.1 (27-36); MCHC 33.4 g/dl (30-36); MCV 90.3 fl (81-99); MONOCYTES 6.3 % (0-12); NEUTROPHILS 90.3 % (39-80); PLATELET COUNT 272 K/uL (140-440); RBC 4.01 M/ul (4.3-5.7); RDW 16.1 (10.5-15.0)
[2024-03-03 05:39] LABS: ALBUMIN 2.8 g/dL (3.4-5.0); ALBUMIN/GLOBULIN RATIO 0.8 (1.1-2.4); ANION GAP 12.6 (7-21); BILIRUBIN, TOTAL 0.2 ng/dL (0.2-1.0); BUN/CREATININE RATIO 20.8 (6.0-28.6); CALCIUM 8.8 mg/dL (8.5-10.1); CREATININE, SERUM 1.49 mg/dL (0.70-1.30); MAGNESIUM 1.9 mg/dL (1.8-2.4); PHOSPHORUS, INORGANIC 4.2 mg/dL (2.5-4.9); POTASSIUM 3.6 mmol/L (3.5-5.1); PROTEIN, TOTAL 6.3 g/dL (6.4-8.2)
[2024-03-03] MEDS ORDERED: SODIUM CHLORIDE 0.9% 1,000 ML IV SCH (08:00)
[2024-03-03] MEDS ORDERED: predniSONE 20 MG TAB PO SCH (09:00)
[2024-03-03] MEDS ORDERED: CEFTRIAXONE/SODIUM CHLORIDE 2 GM/100 ML PIGGYBACK IV SCH (09:00)
[2024-03-03] MEDS ORDERED: AZITHROMYCIN 500 MG in DEXTROSE 5% 250 ML IV SCH (09:00)
[2024-03-03 09:40] VITALS: BP 102/66
--- NOTE | 2024-03-03 10:07 | NUR ---
PATIENT ALERT AND ORIENTED IN BED. STATES HE HAS NO CM NEEDS. STATES HE WILL NEED A TAXI FOR A RIDE HOME. NURSING STAFF NOTIFIED. THEY WILL ARRANGE TRANSPORTATION WHEN PATIENT HAS DISCHARGE ORDERS.
[2024-03-03 10:18] VITALS: BP 102/66
--- NOTE | 2024-03-03 11:44 | NUR ---
PT NOT AVAILABLE FOR VISIT. PROVIDED PRAYER.
[2024-03-03] MEDS ORDERED: CEFDINIR300 MG PO (11:53)
[2024-03-03] MEDS ORDERED: PREDNISONE20 MG PO (11:55)
[2024-03-03] MEDS ORDERED: AZITHROMYCIN250 MG PO (11:55)
== END 2024-03-03 12:29 | disposition home or self-care (01) ==
LOC: ED 02:38 → MS 02:39
PROVIDERS: Emergency Medicine; ADMIT Family Medicine; ATTEND Family Medicine
DX: J44.1 Chronic obstructive pulmonary disease with (acute) exacerbation (principal); J18.9 Pneumonia, unspecified organism; R79.1 Abnormal coagulation profile; Z21 Asymptomatic human immunodeficiency virus [HIV] infection status; Z87.891 Personal history of nicotine dependence; Z79.899 Other long term (current) drug therapy; Z88.0 Allergy status to penicillin; Z90.49 Acquired absence of other specified parts of digestive tract
CPT/HCPCS: 36415; 71045; 80053; 80307; 81003; 83605; 83735; 83880; 84100; 84484; 85025; 85060; 85379; 87040; 87502; 93005; 93010; 94640; 94644; 94762; 96365; 96367; 96372; 96375; 96376; 99285-25; A9270; G0378; J0456; J0696; J1171; J1650; J2405; J2919; J7030; J7060; J7512; U0002

== ENCOUNTER 2024-04-05 10:24 | Emergency (ER) | payer MEDICARE, OTHER ==
[~2024-04-05] VITALS: Ht 182.9 cm; Wt 89.8 kg
--- NOTE | ~2024-04-05 | EKG ---
[facility] [address] [facility] [place], [place] [address] Draft EK completed, results pending confirmation PATIENT NAME: DWAINE VEGA JR Electrocardiogram DATE OF : 58 PHYSICIAN: PRELIMINARY REPORT #: [id number] REPORT IS CONFIDENTIAL AND NOT TO BE RELEASED WITHOUT AUTHORIZATION
[~2024-04-05 10:24] MED LIST changes: -ALBUTEROL/IPRATROPIUM 3 ML NEB INH SCH; +GABAPENTIN100 MG PO
[2024-04-05] MEDS ORDERED: ALBUTEROL/IPRATROPIUM 3 ML NEB INH PRN (10:30)
--- OUTSIDE RECORDS SUMMARY | 2024-04-05 10:31 | XMS ---
PreManage Notification: DWAINE VEGA Security Body Art Technician Events No recent Security Events currently on file CRITERIA MET - 6 ED Visits in 6 Months CARE PROVIDERS Blanka Dumont Almond Blancher Operator/Oil Field Tester 03/26/2024-Current PHONE: [phone] [place], [facility]/Center: [facility] ([facility] PHONE: [phone] JESSIE BUENO Physician Bread Dumper Current PHONE: [phone] Colette has no Care Guidelines for this patient. E.D. VISIT COUNT (12 MO.) 10 SHELBI Bhatt TOTAL 10 NOTE: Visits indicate total known visits. ED/UCC VISIT TRACKING (12 MO.) 04/05/2024 10:25 [facility] [place] TYPE: Emergency COMPLAINT: - SHORTNESS OF BREATH 03/02/2024 02:38 [facility] [place] TYPE: Emergency [...] disease with (acute) lower respiratory infection - penitentiary (current) use of inhaled steroids - Other penitentiary (current) drug therapy - Personal history of irradiation - Personal history of malignant neoplasm of other sites of lip, oral cavity, and pharynx - Pneumonia, unspecified organism - Polyneuropathy, unspecified - Shortness of breath 11/28/2023 01:44 [facility] [place] TYPE: Emergency COMPLAINT: - SOB DIAGNOSES: - Allergy status to penicillin - Chronic obstructive pulmonary disease with (acute) exacerbation - penitentiary (current) use of inhaled steroids - penitentiary (current) use of systemic steroids - Other penitentiary (current) drug therapy - Other specified chronic [...] Chronic obstructive pulmonary disease, unspecified - Other penitentiary (current) drug therapy - Unspecified contact dermatitis, unspecified cause 06/01/2023 04:56 [facility] [place] TYPE: Emergency COMPLAINT: - SOB,UNABLE TO URINATE 05/10/2023 15:43 [facility] [place] TYPE: Emergency COMPLAINT: - SHORTNESS OF BREATH DIAGNOSES: - Allergy status to penicillin - Chronic obstructive pulmonary disease with (acute) exacerbation - oil heaterman (current) use of inhaled steroids - Other intermediate accountant (current) drug therapy - Polyneuropathy, unspecified - Shortness of breath 05/06/2023 10:47 [facility] [place] TYPE: Emergency COMPLAINT: - DIFFICULTY BREATHING DIAGNOSES: - Allergy status to penicillin - Chronic obstructive pulmonary disease, unspecified - Other penitentiary (current) drug therapy - Personal history of malignant neoplasm of larynx - Shortness of breath - Unspecified asthma with (acute) exacerbation INPATIENT VISIT TRACKING (12 MO.) 03/02/2024 02:39 [facility] [place] TYPE: Observation COMPLAINT: - COPD EXARCERBATION PNEUMONIA DIAGNOSES: - Abnormal coagulation profile - Acquired absence of other specified parts of digestive tract - Allergy status to penicillin - Chronic obstructive pulmonary disease with (acute) exacerbation - Other penitentiary (current) drug therapy - Personal history of nicotine dependence - Pneumonia, unspecified organism 06/01/2023 04:[address] [facility] [place] TYPE: Observation COMPLAINT: - PNEUMONIA DIAGNOSES: - Allergy status to penicillin - Chronic obstructive pulmonary disease with (acute) lower respiratory infection - Pneumonia, unspecified organism [email or web address]
[2024-04-05 10:40] LABS: EOSINOPHILS 5.7 % (0-6); LYMPHOCYTES 21.7 % (24-44); MCH 30.9 (27-36); MCHC 33.9 g/dl (30-36); MCV 90.9 fl (81-99); MONOCYTES 11.7 % (0-12); NEUTROPHILS 59.9 % (39-80); PLATELET COUNT 371 K/uL (140-440); RBC 5.17 M/ul (4.3-5.7)
[2024-04-05] MEDS ORDERED: methylPREDNISolone SOD SUCC 125 MG/2 ML VIAL IV ONE (10:45)
[2024-04-05] MEDS ORDERED: ALBUTEROL SULFATE 0.5% 2.5 MG/0.5 ML VIAL INH ONE (10:45)
[2024-04-05] MEDS ORDERED: MAGNESIUM SULFATE 2 GM/50 ML BAG IV ONE (11:00)
[2024-04-05 11:13] LABS: ALBUMIN 4.1 g/dL (3.4-5.0); ANION GAP 13.2 (7-21); BILIRUBIN, TOTAL 0.4 ng/dL (0.2-1.0); BUN/CREATININE RATIO 20.16 (6.0-28.6); CALCIUM 9.6 mg/dL (8.5-10.1); CREATININE, SERUM 1.19 mg/dL (0.70-1.30); MAGNESIUM 2.1 mg/dL (1.8-2.4); POTASSIUM 4.2 mmol/L (3.5-5.1); PROTEIN, TOTAL 8.2 g/dL (6.4-8.2)
[2024-04-05] MEDS ORDERED: PREDNISONE20 MG PO (13:22)
[2024-04-05] MEDS ORDERED: IPRAT-ALBUT 0.5-3 ML INH (13:22)
[2024-04-05 13:28] VITALS: BP 157/105
== END 2024-04-05 13:28 | disposition home or self-care (01) ==
LOC: ED 10:24
PROVIDERS: Emergency Medicine
DX: J44.1 Chronic obstructive pulmonary disease with (acute) exacerbation (principal); G62.9 Polyneuropathy, unspecified; Z21 Asymptomatic human immunodeficiency virus [HIV] infection status; Z88.0 Allergy status to penicillin; Z79.51 Long term (current) use of inhaled steroids; Z79.899 Other long term (current) drug therapy
CPT/HCPCS: 36415; 71045; 80053; 83735; 84484; 85025; 93005; 93010; 94640; 96365; 96375; 99285-25; J2919; J3475

== ENCOUNTER 2024-04-30 20:04 | Emergency (ER) | payer MEDICARE, OTHER ==
[~2024-04-30] VITALS: Ht 182.9 cm; Wt 87.9 kg
[~2024-04-30 20:04] MED LIST changes: +IPRAT-ALBUT 0.5-3 ML INH
--- OUTSIDE RECORDS SUMMARY | 2024-04-30 20:10 | XMS ---
PreManage Notification: DWAINE VEGA Security Patent Chemist Events No recent Security Events currently on file CRITERIA MET - 6 ED Visits in 6 Months - [facility] - 2 Visits in 30 Days CARE PROVIDERS Blanka Dumont Cut Off Sawyer Log/Procurement Professional Logistics 04/25/2024-Current PHONE: [phone] [place], [facility]/Center: [facility] ([facility]) PHONE: [phone] JESSIE BUENO Physician Harbor Department Manager Current PHONE: [phone] Colette has no Care Guidelines for this patient. E.D. VISIT COUNT (12 MO.) 11 SHELBI Bhatt TOTAL 11 NOTE: Visits indicate total known visits. ED/UCC VISIT TRACKING (12 MO.) 04/30/2024 20:04 [place] TYPE: Emergency COMPLAINT: - TROUBLE BREATHING 04/05/2024 10:25 [facility] [place] TYPE: Emergency COMPLAINT: - SHORTNESS OF BREATH DIAGNOSES: - Allergy status to penicillin - Chronic obstructive pulmonary disease with (acute) exacerbation - [facility] (current) use of inhaled steroids - Other intermodal customer service (current) drug therapy - Polyneuropathy, unspecified - Shortness of breath 03/02/2024 02:38 [facility] [place] TYPE: Emergency COMPLAINT: - DIFFICULTY BREATHING 02/05/2024 15:48 [facility] [place] TYPE: Emergency COMPLAINT: - ALLERGIC REACTION,WHEEZING DIAGNOSES: - Allergy status to penicillin - Chronic obstructive pulmonary disease, unspecified - Other custodial (current) drug therapy - Polyneuropathy, unspecified - Rash and other nonspecific skin eruption 01/22/2024 10:38 [facility] [place] TYPE: Emergency COMPLAINT: - POSS ALLERGIC REACTION DIAGNOSES: - Allergy status to penicillin - Allergy, unspecified, initial encounter - Chronic obstructive pulmonary disease with (acute) lower respiratory infection - terminal block assembler (current) use of inhaled steroids - Other custodial (current) drug therapy - Personal history of irradiation - Personal history of malignant neoplasm of other sites of lip, oral cavity, and pharynx - Pneumonia, unspecified organism - Polyneuropathy, unspecified - Shortness of breath 11/28/2023 01:44 [facility] [place] TYPE: Emergency COMPLAINT: - SOB DIAGNOSES: - Allergy status to penicillin - Chronic obstructive pulmonary disease with (acute) exacerbation - [facility] (current) use of inhaled steroids - terminal block assembler (current) use of systemic steroids - Other custodial (current) drug therapy - Other specified chronic [...] initial encounter for closed fracture - Other custodial (current) drug therapy - Pain in right shoulder - Unspecified fall, initial encounter 08/18/2023 16:41 [facility] [place] TYPE: Emergency COMPLAINT: - ALLERGIC REACTION DIAGNOSES: - Allergy status to penicillin - Allergy, unspecified, initial encounter - Chronic obstructive pulmonary disease, unspecified - Other custodial (current) drug therapy - Unspecified contact dermatitis, unspecified cause 06/01/2023 04:56 [facility] [place] TYPE: Emergency COMPLAINT: - SOB,UNABLE TO URINATE 05/10/2023 15:43 [facility] [place] TYPE: Emergency COMPLAINT: - SHORTNESS OF BREATH DIAGNOSES: - Allergy status to penicillin - Chronic obstructive pulmonary disease with (acute) exacerbation - [facility] (current) use of inhaled steroids - Other custodial (current) drug therapy - Polyneuropathy, unspecified - Shortness of breath 05/06/2023 10:47 [facility] [place] TYPE: Emergency COMPLAINT: - DIFFICULTY BREATHING DIAGNOSES: - Allergy status to penicillin - Chronic obstructive pulmonary disease, unspecified - Other intermodal customer service (current) drug therapy - Personal history of [...] pulmonary disease with (acute) exacerbation - Other custodial (current) drug therapy - Personal history of nicotine dependence - Pneumonia, unspecified organism 06/01/2023 04:57 [facility] [place] TYPE: Observation COMPLAINT: - PNEUMONIA DIAGNOSES: - Allergy status to penicillin - Chronic obstructive pulmonary disease with (acute) lower respiratory infection - Pneumonia, unspecified organism [email or web address]
[2024-04-30] MEDS ORDERED: ALBUTEROL SULFATE 0.5% 2.5 MG/0.5 ML VIAL INH ONE (20:15)
[2024-04-30] MEDS ORDERED: methylPREDNISolone SOD SUCC 125 MG/2 ML VIAL IV ONE (20:15)
[2024-04-30] MEDS ORDERED: ALBUTEROL/IPRATROPIUM 3 ML NEB INH ONE (20:15)
[2024-04-30] MEDS ORDERED: BUDESONIDE 0.5 MG/2 ML VIAL INH ONE (20:15)
[2024-04-30] MEDS ORDERED: LORazepam 2 MG/ML VIAL IV ONE (21:00)
[2024-04-30] MEDS ORDERED: AZITHROMYCIN 250 MG HOME.PACK PO ONE (22:30)
[2024-04-30] MEDS ORDERED: INHALER, ASSIST DEVICES 1 EACH SPACER MISC ONE (22:30)
[2024-04-30] MEDS ORDERED: methylPREDNISolone 4 MG HOME.PACK PO ONE (22:30)
[2024-04-30] MEDS ORDERED: ALBUTEROL SULFATE 8 GM HOME.PACK INH ONE (22:30)
[2024-04-30 22:55] VITALS: BP 145/84
== END 2024-04-30 22:55 | disposition home or self-care (01) ==
LOC: ED 20:04
DX: J44.1 Chronic obstructive pulmonary disease with (acute) exacerbation (principal); Z21 Asymptomatic human immunodeficiency virus [HIV] infection status; Z88.0 Allergy status to penicillin; Z79.899 Other long term (current) drug therapy
CPT/HCPCS: 71045; 94640; 94644; 94664; 96374; 96375; 99285-25; J2060; J2919

== ENCOUNTER 2024-05-21 07:41 | Emergency (ER) | payer MEDICARE, OTHER ==
[~2024-05-21] VITALS: Ht 182.9 cm; Wt 79.4 kg
--- OUTSIDE RECORDS SUMMARY | 2024-05-21 07:43 | XMS ---
PreManage Notification: DWAINE VEGA Security Dopster Events No recent Security Events currently on file CRITERIA MET - 6 ED Visits in 6 Months - [facility] - 2 Visits in 30 Days CARE PROVIDERS Blanka Dumont Interviewing Clerk/Disaster Recovery Analyst 04/25/2024-Current PHONE: [phone] [place], [facility]/Center: [facility] ([facility], [facility]) PHONE: [phone] JESSIE BUENO Physician Principal Systems Architect Current PHONE: [phone] Colette has no Care Guidelines for this patient. E.D. VISIT COUNT (12 MO.) 10 SHELBI Bhatt TOTAL 10 NOTE: Visits indicate total known visits. ED/UCC VISIT TRACKING (12 MO.) 2024 07:41 [place] TYPE: Emergency COMPLAINT: - SHORTNESS OF BREATH 04/30/2024 20:04 [place] TYPE: Emergency COMPLAINT: - TROUBLE BREATHING DIAGNOSES: - Allergy status to penicillin - Chronic obstructive pulmonary disease with (acute) exacerbation - Other petroleum terminal plant operator (current) drug therapy - Shortness of breath 04/05/2024 10:25 [place] [place] TYPE: Emergency COMPLAINT: - SHORTNESS OF BREATH DIAGNOSES: - Allergy status to penicillin - Chronic obstructive pulmonary disease with (acute) exacerbation - prison (current) use of inhaled steroids - Other correction (current) drug therapy - Polyneuropathy, unspecified - Shortness of breath 03/02/2024 02:38 [facility] [place] TYPE: Emergency COMPLAINT: - DIFFICULTY BREATHING 02/05/2024 15:48 [facility] [place] TYPE: Emergency COMPLAINT: - ALLERGIC REACTION,WHEEZING DIAGNOSES: - Allergy status to penicillin - Chronic obstructive pulmonary disease, unspecified - Other correction (current) drug therapy - Polyneuropathy, unspecified - Rash and other nonspecific skin eruption 01/22/2024 10:38 [facility] [place] TYPE: Emergency COMPLAINT: - POSS ALLERGIC REACTION DIAGNOSES: - Allergy status to penicillin - Allergy, unspecified, initial encounter - Chronic obstructive pulmonary disease with (acute) lower respiratory infection - terminal gauger (current) use of inhaled steroids - Other correction (current) drug therapy - Personal history of irradiation - Personal history of malignant neoplasm of other sites of lip, oral cavity, and pharynx - Pneumonia, unspecified organism - Polyneuropathy, unspecified - Shortness of breath 11/28/2023 01:44 [facility] [place] TYPE: Emergency COMPLAINT: - SOB DIAGNOSES: - Allergy status to penicillin - Chronic obstructive pulmonary disease with (acute) exacerbation - prison (current) use of inhaled steroids - terminal gauger (current) use of systemic steroids - Other correction (current) drug therapy - Other specified chronic [...] initial encounter for closed fracture - Other petroleum terminal plant operator (current) drug therapy - Pain in right shoulder - Unspecified fall, initial encounter 08/18/2023 16:41 [facility] [place] TYPE: Emergency COMPLAINT: - ALLERGIC REACTION DIAGNOSES: - Allergy status to penicillin - Allergy, unspecified, initial encounter - Chronic obstructive pulmonary disease, unspecified - Other correction (current) drug therapy - Unspecified contact dermatitis, unspecified cause 06/01/2023 04:56 [place] TYPE: Emergency COMPLAINT: - SOB,UNABLE TO URINATE INPATIENT VISIT TRACKING (12 MO.) 03/02/2024 02:39 [facility] TYPE: Observation COMPLAINT: - COPD EXARCERBATION PNEUMONIA DIAGNOSES: - Abnormal coagulation profile - Acquired absence of other specified parts of digestive tract - Allergy status to penicillin - Chronic obstructive pulmonary disease with (acute) exacerbation - Other petroleum terminal plant operator (current) drug therapy - Personal history of nicotine dependence - Pneumonia, unspecified organism 06/01/2023 04:[address] [facility] [place] TYPE: Observation COMPLAINT: - PNEUMONIA DIAGNOSES: - Allergy status to penicillin - Chronic obstructive pulmonary disease with (acute) lower respiratory infection - Pneumonia, unspecified organism [email or web address]
[2024-05-21 07:57] LABS: BASOPHILS 1.1 % (0-2); EOSINOPHILS 6.2 % (0-6); HEMATOCRIT 41.1 % (35.0-50.0); HEMOGLOBIN 13.8 g/dL (12.0-18.0); LYMPHOCYTES 19.1 % (24-44); MCH 30.7 (27-36); MCHC 33.6 g/dl (30-36); MCV 91.5 fl (81-99); MONOCYTES 11.6 % (0-12); PLATELET COUNT 460 K/uL (140-440); RBC 4.49 M/ul (4.3-5.7); RDW 14.6 (10.5-15.0)
[2024-05-21] MEDS ORDERED: methylPREDNISolone SOD SUCC 125 MG/2 ML VIAL IV ONE (08:00)
[2024-05-21] MEDS ORDERED: ALBUTEROL SULFATE 0.042% 1.25 MG/3 ML VIAL INH ONE (08:00)
[2024-05-21] MEDS ORDERED: ALBUTEROL/IPRATROPIUM 3 ML NEB INH ONE (08:00)
[2024-05-21 08:17] LABS: ALBUMIN 3.6 g/dL (3.4-5.0); ALBUMIN/GLOBULIN RATIO 0.92 (1.1-2.4); ANION GAP 11.9 (7-21); BILIRUBIN, TOTAL 0.2 mg/dL (0.2-1.0); BUN/CREATININE RATIO 19.87 (6.0-28.6); CALCIUM 9.4 mg/dL (8.5-10.1); CREATININE, SERUM 1.56 mg/dL (0.70-1.30); POTASSIUM 3.9 mmol/L (3.5-5.1); PROTEIN, TOTAL 7.5 g/dL (6.4-8.2)
[2024-05-21] MEDS ORDERED: PREDNISONE20 MG PO (09:10)
[2024-05-21 09:15] VITALS: BP 171/94
--- NOTE | 2024-05-22 12:58 | EKG ---
[facility] [address] [facility] [place] [address] Signed Normal sinus rhythm Normal ECG When compared with ECG of 05-APR-2024 10:48, No significant change was found Confirmed by Estelita Santana DO ([id number]) on 05/22/2024 12:58:25 PM Electronically Signed By: ESTELITA SANTANA DO 05/22/24 1258 PATIENT NAME: DWAINE VEGA JR Electrocardiogram DATE OF : 58 PHYSICIAN: ESTELITA SANTANA DO REPORT #: [id number] REPORT IS CONFIDENTIAL AND NOT TO BE RELEASED WITHOUT AUTHORIZATION
[2024-05-22] MEDS ORDERED: LASIX20 MG PO (23:33)
[2024-05-22] MEDS ORDERED: AZITHROMYCIN500 MG PO (23:33)
[2024-05-22] MEDS ORDERED: BREYNA 160-4.10.3 GM INH (23:42)
[2024-05-22] MEDS ORDERED: VENTOLIN HFA18 GM INH (23:42)
== END 2024-05-21 09:15 | disposition home or self-care (01) ==
LOC: ED 07:41
PROVIDERS: Emergency Medicine
DX: J44.1 Chronic obstructive pulmonary disease with (acute) exacerbation (principal); G62.9 Polyneuropathy, unspecified; Z21 Asymptomatic human immunodeficiency virus [HIV] infection status; Z88.0 Allergy status to penicillin; Z79.52 Long term (current) use of systemic steroids; Z79.51 Long term (current) use of inhaled steroids; Z79.899 Other long term (current) drug therapy
CPT/HCPCS: 36415; 71045; 80053; 83880; 84484; 85025; 93005; 93010; 94640; 96374; 99285-25; J2919

== ENCOUNTER 2024-05-22 22:15 | Emergency (ER) | payer MEDICARE, OTHER ==
[~2024-05-22] VITALS: Ht 182.9 cm; Wt 89.7 kg
--- OUTSIDE RECORDS SUMMARY | 2024-05-22 22:20 | XMS ---
PreManage Notification: DWAINE VEGA Security Care Team Assistant Events No recent Security Events currently on file CRITERIA MET - 6 ED Visits in 6 Months - [facility] - 2 Visits in 30 Days CARE PROVIDERS Blanka Dumont Doll Eye Setter/Associate Director Financial Aid 04/25/2024-Current PHONE: [phone] [place], [facility]/Center: [facility] ([facility]) PHONE: [phone] JESSIE BUENO Physician Coater Operator Insulation Board Current PHONE: [phone] Colette has no Care Guidelines for this patient. E.D. VISIT COUNT (12 MO.) 11 SHELBI Bhatt TOTAL 11 NOTE: Visits indicate total known visits. ED/UCC VISIT TRACKING (12 MO.) 05/22/2024 22:15 [facility] [place] TYPE: Emergency COMPLAINT: - SOB 2024 07:41 [facility] TYPE: Emergency COMPLAINT: - SHORTNESS OF BREATH 04/30/2024 20:04 [place] TYPE: Emergency COMPLAINT: - TROUBLE BREATHING DIAGNOSES: - Allergy status to penicillin - Chronic obstructive pulmonary disease with (acute) exacerbation - Other residential (current) drug therapy - Shortness of breath 04/05/2024 10:25 [facility] TYPE: Emergency COMPLAINT: - SHORTNESS OF BREATH DIAGNOSES: - Allergy status to penicillin - Chronic obstructive pulmonary disease with (acute) exacerbation - [facility] (current) use of inhaled steroids - Other intermodal truck driver (current) drug therapy - Polyneuropathy, unspecified - Shortness of breath 03/02/2024 02:38 [facility] [place] TYPE: Emergency COMPLAINT: - DIFFICULTY BREATHING 02/05/2024 15:48 [facility] [place] TYPE: Emergency COMPLAINT: - ALLERGIC REACTION,WHEEZING DIAGNOSES: - Allergy status to penicillin - Chronic obstructive pulmonary disease, unspecified - Other intermodal truck driver (current) drug therapy - Polyneuropathy, unspecified - Rash and other nonspecific skin eruption 01/22/2024 10:38 [facility] [place] TYPE: Emergency COMPLAINT: - POSS ALLERGIC REACTION DIAGNOSES: - Allergy status to penicillin - Allergy, unspecified, initial encounter - Chronic obstructive pulmonary disease with (acute) lower respiratory infection - [facility] (current) use of inhaled steroids - Other residential (current) drug therapy - Personal history of irradiation - Personal history of malignant neoplasm of other sites of lip, oral cavity, and pharynx - Pneumonia, unspecified organism - Polyneuropathy, unspecified - Shortness of breath 11/28/2023 01:44 [facility] [place] TYPE: Emergency COMPLAINT: - SOB DIAGNOSES: - Allergy status to penicillin - Chronic obstructive pulmonary disease with (acute) exacerbation - [facility] (current) use of inhaled steroids - [facility] (current) use of systemic steroids - Other intermodal truck driver (current) drug therapy - Other specified chronic [...] initial encounter for closed fracture - Other intermodal truck driver (current) drug therapy - Pain in right shoulder - Unspecified fall, initial encounter 08/18/2023 16:41 [facility] [place] TYPE: Emergency COMPLAINT: - ALLERGIC REACTION DIAGNOSES: - Allergy status to penicillin - Allergy, unspecified, initial encounter - Chronic obstructive pulmonary disease, unspecified - Other residential (current) drug therapy - Unspecified contact dermatitis, [...] pulmonary disease with (acute) exacerbation - Other intermodal truck driver (current) drug therapy - Personal history of nicotine dependence - Pneumonia, unspecified organism 06/01/2023 04:57 [facility] [place] TYPE: Observation COMPLAINT: - PNEUMONIA DIAGNOSES: - Allergy status to penicillin - Chronic obstructive pulmonary disease with (acute) lower respiratory infection - Pneumonia, unspecified organism [email or web address]
[2024-05-22 22:27] LABS: PH, VENOUS 7.453 (7.31-7.41)
[2024-05-22 22:29] LABS: BASOPHILS 0.3 % (0-2); EOSINOPHILS 0.2 % (0-6); HEMATOCRIT 38.9 % (35.0-50.0); HEMOGLOBIN 12.9 g/dL (12.0-18.0); LYMPHOCYTES 9.3 % (24-44); MCH 30.5 (27-36); MCHC 33.2 g/dl (30-36); MCV 91.9 fl (81-99); MONOCYTES 7.8 % (0-12); NEUTROPHILS 82.4 % (39-80); PLATELET COUNT 466 K/uL (140-440); RBC 4.23 M/ul (4.3-5.7); RDW 14.3 (10.5-15.0)
[2024-05-22] MEDS ORDERED: LORazepam 2 MG/ML VIAL IV ONE (22:30)
[2024-05-22 22:56] LABS: ALBUMIN 3.4 g/dL (3.4-5.0); ALBUMIN/GLOBULIN RATIO 0.94 (1.1-2.4); ANION GAP 13.7 (7-21); BILIRUBIN, TOTAL 0.2 mg/dL (0.2-1.0); BUN/CREATININE RATIO 23.3 (6.0-28.6); CALCIUM 9.6 mg/dL (8.5-10.1); CREATININE, SERUM 1.33 mg/dL (0.70-1.30); POTASSIUM 3.7 mmol/L (3.5-5.1)
[2024-05-22] MEDS ORDERED: LASIX20 MG PO (23:33)
[2024-05-22] MEDS ORDERED: AZITHROMYCIN500 MG PO (23:33)
[2024-05-22] MEDS ORDERED: BREYNA 160-4.10.3 GM INH (23:42)
[2024-05-22] MEDS ORDERED: VENTOLIN HFA18 GM INH (23:42)
[2024-05-23] VITALS: BP 143/85
== END 2024-05-22 23:45 | disposition home or self-care (01) ==
LOC: ED 22:15
PROVIDERS: Family Medicine
DX: J44.1 Chronic obstructive pulmonary disease with (acute) exacerbation (principal); R79.89 Other specified abnormal findings of blood chemistry; Z21 Asymptomatic human immunodeficiency virus [HIV] infection status; Z88.0 Allergy status to penicillin; Z79.899 Other long term (current) drug therapy
CPT/HCPCS: 36415; 71045; 80053; 82803; 83880; 85025; 96374; 99285-25; J2060

== ENCOUNTER 2024-07-26 12:19 | Emergency (ER) | payer MEDICARE, OTHER ==
[~2024-07-26] VITALS: Ht 182.9 cm; Wt 82.4 kg
[~2024-07-26 12:19] MED LIST changes: +AZITHROMYCIN500 MG PO; +LASIX20 MG PO
--- OUTSIDE RECORDS SUMMARY | 2024-07-26 12:26 | XMS ---
PreManage Notification: DWAINE VEGA Security Channel Opener Outsoles Events No recent Security Events currently on file CRITERIA MET - 6 ED Visits in 6 Months CARE PROVIDERS [facility]/Center: [facility] ([facility]) PHONE: [phone] JESSIE BUENO Physician Front Office Agent Current PHONE: [phone] Blanka Dumont Memorial Counselor/Firebrick Layer Current PHONE: [phone] Colette has no Care Guidelines for this patient. E.D. VISIT COUNT (12 MO.) 11 SHELBI Bhatt TOTAL 11 NOTE: Visits indicate total known visits. ED/UCC VISIT TRACKING (12 MO.) 07/26/2024 12:[address] [facility] [place] TYPE: Emergency COMPLAINT: - shortness of breath 05/22/2024 22:15 [facility] [place] TYPE: Emergency COMPLAINT: - SOB DIAGNOSES: - Allergy status to penicillin - Chronic obstructive pulmonary disease with (acute) exacerbation - Other residential (current) drug therapy - Other specified abnormal findings of blood chemistry - Shortness of breath 2024 07:41 [facility] [place] TYPE: Emergency COMPLAINT: - SHORTNESS OF BREATH DIAGNOSES: - Allergy status to penicillin - Chronic obstructive pulmonary disease with (acute) exacerbation - care home (current) use of inhaled steroids - keno terminal operator (current) use of systemic steroids - Other residential (current) drug therapy - Polyneuropathy, unspecified - Shortness of breath 04/30/2024 20:04 [facility] [place] TYPE: Emergency COMPLAINT: - TROUBLE BREATHING DIAGNOSES: - Allergy status to penicillin - Chronic obstructive pulmonary disease with (acute) exacerbation - Other residential (current) drug therapy - Shortness of breath 04/05/2024 10:25 SHE[facility] [place] TYPE: Emergency COMPLAINT: - SHORTNESS OF BREATH DIAGNOSES: - Allergy status to penicillin - Chronic obstructive pulmonary disease with (acute) exacerbation - care home (current) use of inhaled steroids - Other watermelon harvesting supervisor (current) drug therapy - Polyneuropathy, unspecified - Shortness of breath 03/02/2024 02:38 [facility] [place] TYPE: Emergency COMPLAINT: - DIFFICULTY BREATHING 02/05/2024 15:48 [facility] [place] TYPE: Emergency COMPLAINT: - ALLERGIC REACTION,WHEEZING DIAGNOSES: - Allergy status to penicillin - Chronic obstructive pulmonary disease, unspecified - Other watermelon harvesting supervisor (current) drug therapy - Polyneuropathy, unspecified - Rash and other nonspecific skin eruption 01/22/2024 10:38 SHE[facility] [place] TYPE: Emergency COMPLAINT: - POSS ALLERGIC REACTION DIAGNOSES: - Allergy status to penicillin - Allergy, unspecified, initial encounter - Chronic obstructive pulmonary disease with (acute) lower respiratory infection - keno terminal operator (current) use of inhaled steroids - Other watermelon harvesting supervisor (current) drug therapy - Personal history of irradiation - Personal history of malignant neoplasm of other sites of lip, oral cavity, and pharynx - Pneumonia, unspecified organism - Polyneuropathy, unspecified - Shortness of breath 11/28/2023 01:44 [facility] [place] TYPE: Emergency COMPLAINT: - SOB DIAGNOSES: - Allergy status to penicillin - Chronic obstructive pulmonary disease with (acute) exacerbation - keno terminal operator (current) use of inhaled steroids - keno terminal operator (current) use of systemic steroids - Other residential (current) drug therapy - Other specified chronic [...] initial encounter for closed fracture - Other residential (current) drug therapy - Pain in right shoulder - Unspecified fall, initial encounter 08/18/2023 16:41 [facility] [place] TYPE: Emergency COMPLAINT: - ALLERGIC REACTION DIAGNOSES: - Allergy status to penicillin - Allergy, unspecified, initial encounter - Chronic obstructive pulmonary disease, unspecified - Other watermelon harvesting supervisor (current) drug therapy - Unspecified contact dermatitis, unspecified cause INPATIENT VISIT TRACKING (12 MO.) 03/02/2024 02:[address] [facility] [place] TYPE: Observation COMPLAINT: - COPD EXARCERBATION PNEUMONIA DIAGNOSES: - Abnormal coagulation profile - Acquired absence of other specified parts of digestive tract - Allergy status to penicillin - Chronic obstructive pulmonary disease with (acute) exacerbation - Other watermelon harvesting supervisor (current) drug therapy - Personal history of nicotine dependence - Pneumonia, unspecified organism [email or web address]
[2024-07-26] MEDS ORDERED: ALBUTEROL/IPRATROPIUM 3 ML NEB ONE (12:32)
[2024-07-26] MEDS ORDERED: ALBUTEROL/IPRATROPIUM 3 ML NEB INH ONE ×2 (12:45→14:30)
[2024-07-26] MEDS ORDERED: methylPREDNISolone SOD SUCC 125 MG/2 ML VIAL IV ONE (13:00)
[2024-07-26] MEDS ORDERED: FUROSEMIDE 100 MG/10 ML VIAL IV ONE (13:00)
[2024-07-26] MEDS ORDERED: CEFTRIAXONE SODIUM 1 GM in SODIUM CHLORIDE 0.9% 100 ML IV ONE (13:00)
[2024-07-26] MEDS ORDERED: LORazepam 2 MG/ML VIAL IV ONE (13:00)
[2024-07-26 13:15] LABS: HEMATOCRIT 44.8 % (35.0-50.0); HEMOGLOBIN 15.1 g/dL (12.0-18.0); MCH 30.1 (27-36); MCHC 33.8 g/dl (30-36); PLATELET COUNT 331 K/uL (140-440); RBC 5.03 M/ul (4.3-5.7); RDW 14.4 (10.5-15.0)
[2024-07-26 13:30] LABS: BILIRUBIN, URINE POSITIVE (negative); BLOOD/HGB, URINE MODERATE (Negative); KETONE, URINE SMALL (Negative); LEUK ESTERASE, URINE NEGATIVE (negative); NITRITE, URINE NEGATIVE (negative)
[2024-07-26 13:31] LABS: LYMPHOCYTES, MANUAL DIFF 2; MONOCYTES, MANUAL DIFF 9; NEUTROPHILS, MANUAL DIFF 89
[2024-07-26 13:37] LABS: ALBUMIN 3.6 g/dL (3.4-5.0); ALBUMIN/GLOBULIN RATIO 0.82 (1.1-2.4); ANION GAP 17.6 (7-21); BUN/CREATININE RATIO 27.05 (6.0-28.6); CALCIUM 9.3 mg/dL (8.5-10.1); CREATININE, SERUM 2.55 mg/dL (0.70-1.30); POTASSIUM 4.6 mmol/L (3.5-5.1)
[2024-07-26 13:38] LABS: EPITHELIAL CELLS, URINE SQUAMOUS 1+ /lpf (0-1+)
[2024-07-26 13:39] LABS: BACTERIA, URINE 1+ /hpf (negative); CASTS, URINE GRANULAR 1+ \\lpf; COLLECTION TYPE, URINE CLEAN CATCH; CRYSTALS, URINE NONE SEEN (0-1+); REFLEX CULTURE, URINE No (No)
[2024-07-26 13:45] LABS: AMPHETAMINES, URINE POSITIVE (NEGATIVE); BARBITURATES, URINE NEGATIVE (NEGATIVE); BENZODIAZEPINE, URINE NEGATIVE (NEGATIVE); BUPRENORPHINE, URINE POSITIVE (NEGATIVE); CANNABINOID, URINE NEGATIVE (NEGATIVE); COCAINE, URINE NEGATIVE (NEGATIVE); ECSTASY, URINE POSITIVE (NEGATIVE); FENTANYL, URINE NEGATIVE (NEGATIVE); METHADONE, URINE NEGATIVE (NEGATIVE); OPIATES, URINE NEGATIVE (NEGATIVE); OXYCODONE, URINE NEGATIVE (NEGATIVE); PHENCYCLIDINE, URINE NEGATIVE (NEGATIVE)
[2024-07-26] MEDS ORDERED: SODIUM CHLORIDE 0.9% 500 ML IV PRN (14:00)
[2024-07-26 14:09] LABS: PH, VENOUS 7.259 (7.31-7.41)
[2024-07-26] MEDS ORDERED: propofoL 100 ML IV ONE (14:47)
[2024-07-26] MEDS ORDERED: ROCURONIUM BROMIDE 50 MG/5 ML SYR IV ONE (15:15)
[2024-07-26] MEDS ORDERED: ETOMIDATE 40 MG/20 ML VIAL IV ONE (15:15)
[2024-07-26] MEDS ORDERED: SUCCINYLCHOLINE CHLORIDE 20 MG/ML MDV IV ONE (15:15)
[2024-07-26] MEDS ORDERED: SODIUM CHLORIDE 0.9% 1,000 ML IV ONE (15:30)
[2024-07-26] MEDS ORDERED: FENTANYL CITRATE-0.9 % NACL/PF 100 ML IV SCH (15:45)
[2024-07-26] MEDS ORDERED: MIDAZOLAM HCL 100 MG in DEXTROSE 5% 80 ML IV SCH (15:45)
[2024-07-26 17:05] LABS: LACTIC ACID, BLOOD 1.2 mmol/L (0.4-2.0)
[2024-07-26] MEDS ORDERED: NOREPINEPHRINE BITARTRATE 250 ML IV SCH (17:15)
[2024-07-26 18:16] VITALS: BP 106/77
--- NOTE | 2024-07-27 14:53 | EKG ---
[facility] [address] [facility] [place] [address] Signed Sinus tachycardia Low voltage QRS Borderline ECG When compared with ECG of 21-MAY-2024 07:56, Non-specific change in ST segment in Inferior leads T wave amplitude has increased in Anterior leads Confirmed by Khushbu Corbin MD ([id number]) on 07/27/2024 2:52:54 PM Electronically Signed By: KHUSHBU CORBIN MD 07/27/24 1453 PATIENT NAME: VEGADWAINE JR Electrocardiogram DATE OF : 58 PHYSICIAN: KHUSHBU CORBIN MD REPORT #: [id number] REPORT IS CONFIDENTIAL AND NOT TO BE RELEASED WITHOUT AUTHORIZATION
== END 2024-07-26 18:16 | disposition short-term general hospital (02) ==
LOC: ED 12:19
PROVIDERS: Emergency Medicine
DX: J96.90 Respiratory failure, unspecified, unspecified whether with hypoxia or hypercapnia (principal); J44.9 Chronic obstructive pulmonary disease, unspecified; N19 Unspecified kidney failure; F19.10 Other psychoactive substance abuse, uncomplicated; Z88.0 Allergy status to penicillin; Z79.899 Other long term (current) drug therapy
CPT/HCPCS: 31500; 36415; 51702; 71045; 80053; 80307; 81001; 82803; 83605; 83880; 84484; 85025; 93005; 93010; 94640; 94799; 99285-25; A4311; J0330; J0696; J1938; J2060; J2250; J2704; J2919; J3010; J3490; J7030; J7040

== ENCOUNTER 2024-07-31 11:51 | Emergency (ER) | payer MEDICARE, OTHER ==
[~2024-07-31] VITALS: Ht 182.9 cm; Wt 79.4 kg
--- OUTSIDE RECORDS SUMMARY | 2024-07-31 11:58 | XMS ---
PreManage Notification: DWAINE VEGA Security Wire Mesh Filter Fabricator Events No recent Security Events currently on file CRITERIA MET - 6 ED Visits in 6 Months - [facility] - 2 Visits in 30 Days CARE PROVIDERS [facility]/Center: [facility] ([facility]) PHONE: [phone] JESSIE BUENO Physician Virtualization Engineer Current PHONE: [phone] Blanka uDmont Mortuary Technician/Machine Pecan Picker Current PHONE: [phone] Colette has no Care Guidelines for this patient. E.D. VISIT COUNT (12 MO.) [address] [facility] TOTAL 12 NOTE: Visits indicate total known visits. ED/UCC VISIT TRACKING (12 MO.) 07/31/2024 11:52 [facility] [place] TYPE: Emergency COMPLAINT: - FLANK PAIN 07/26/2024 12:20 [facility] [place] TYPE: Emergency COMPLAINT: - SHORTNESS OF BREATH DIAGNOSES: - Allergy status to penicillin - Chronic obstructive pulmonary disease, unspecified - Other termite helper (current) drug therapy - Other psychoactive substance abuse, uncomplicated - Respiratory failure, unspecified, unspecified whether with hypoxia or hypercapnia - Shortness of breath - Unspecified kidney failure 05/22/2024 22:15 [facility] [place] TYPE: Emergency COMPLAINT: - SOB DIAGNOSES: - Allergy status to penicillin - Chronic obstructive pulmonary disease with (acute) exacerbation - Other prison (current) drug therapy - Other specified abnormal findings of blood chemistry - Shortness of breath 2024 07:41 [facility] [place] TYPE: Emergency COMPLAINT: - SHORTNESS OF BREATH DIAGNOSES: - Allergy status to penicillin - Chronic obstructive pulmonary disease with (acute) exacerbation - long-term (current) use of inhaled steroids - long-term (current) use of systemic steroids - Other prison (current) drug therapy - Polyneuropathy, unspecified - Shortness of breath 04/30/2024 20:04 [facility] [place] TYPE: Emergency COMPLAINT: - TROUBLE BREATHING DIAGNOSES: - Allergy status to penicillin - Chronic obstructive pulmonary disease with (acute) exacerbation - Other prison (current) drug therapy - Shortness of breath 04/05/2024 10:25 [facility] [place] TYPE: Emergency COMPLAINT: - SHORTNESS OF BREATH DIAGNOSES: - Allergy status to penicillin - Chronic obstructive pulmonary disease with (acute) exacerbation - long-term (current) use of inhaled steroids - Other termite helper (current) drug therapy - Polyneuropathy, unspecified - Shortness of breath 03/02/2024 02:38 [facility] [place] TYPE: Emergency COMPLAINT: - DIFFICULTY BREATHING 02/05/2024 15:48 [facility] [place] TYPE: Emergency COMPLAINT: - ALLERGIC REACTION,WHEEZING DIAGNOSES: - Allergy status to penicillin - Chronic obstructive pulmonary disease, unspecified - Other termite helper (current) drug therapy - Polyneuropathy, unspecified - Rash and other nonspecific skin eruption 01/22/2024 10:38 [facility] [place] TYPE: Emergency COMPLAINT: - POSS ALLERGIC REACTION DIAGNOSES: - Allergy status to penicillin - Allergy, unspecified, initial encounter - Chronic obstructive pulmonary disease with (acute) lower respiratory infection - long-term (current) use of inhaled steroids - Other prison (current) drug therapy - Personal history of irradiation - Personal history of malignant neoplasm of other sites of lip, oral cavity, and pharynx - Pneumonia, unspecified organism - Polyneuropathy, unspecified - Shortness of breath 11/28/2023 01:44 [facility] [place] TYPE: Emergency COMPLAINT: - SOB DIAGNOSES: - Allergy status to penicillin - Chronic obstructive pulmonary disease with (acute) exacerbation - terminal operator (current) use of inhaled steroids - long-term (current) use of systemic steroids - Other prison (current) drug therapy - Other specified chronic obstructive pulmonary disease - Shortness of breath 10/19/2023 03:04 [facility] [place] TYPE: Emergency COMPLAINT: - FALL DIAGNOSES: - Allergy status to penicillin - Chronic obstructive pulmonary disease, unspecified - Displaced fracture of greater tuberosity of right humerus, initial encounter for closed fracture - Other displaced fracture of upper end of right humerus, initial encounter for closed fracture - Other termite helper (current) drug therapy - Pain in right shoulder - Unspecified fall, initial encounter 08/18/2023 16:41 SHE[facility] [place] TYPE: Emergency COMPLAINT: - ALLERGIC REACTION DIAGNOSES: - Allergy status to penicillin - Allergy, unspecified, initial encounter - Chronic obstructive pulmonary disease, unspecified - Other prison (current) drug therapy - Unspecified contact dermatitis, unspecified cause INPATIENT VISIT TRACKING (12 MO.) [facility] [place] [place] [facility] COMPLAINT: - Pneumonia DIAGNOSES: 0. Acute kidney failure, unspecified 1. Sepsis, unspecified organism 2. Acute respiratory failure with hypoxia 4. Acute kidney failure, unspecified 5. Chronic obstructive pulmonary disease with (acute) lower respiratory infection 6. Chronic obstructive pulmonary disease with (acute) exacerbation 7. Malignant neoplasm of unspecified part of unspecified bronchus or lung 8. Pneumonia, unspecified organism 9. Severe sepsis without septic shock 10. Pressure-induced deep tissue damage of right buttock 11. Dysphagia, oropharyngeal phase 12. Essential (primary) hypertension 13. Hyperlipidemia, unspecified 14. Abuse of steroids or hormones 15. Cannabis abuse, uncomplicated 16. Other stimulant abuse, uncomplicated 17. Personal history of nicotine dependence 18. Allergy status to penicillin 19. Personal history of malignant neoplasm of other organs and systems 03/02/2024 02:39 [facility] [place] TYPE: Observation COMPLAINT: - COPD EXARCERBATION PNEUMONIA DIAGNOSES: - Abnormal coagulation profile - Acquired absence of other specified parts of digestive tract - Allergy status to penicillin - Chronic obstructive pulmonary disease with (acute) exacerbation - Other termite helper (current) drug therapy - Personal history of nicotine dependence - Pneumonia, unspecified organism [email or web address]
[2024-07-31] MEDS ORDERED: MORPHINE SULFATE 4 MG/ML VIAL IV ONE (12:30)
[2024-07-31] MEDS ORDERED: ondansetron HCL 4 MG/2 ML VIAL IV ONE (12:30)
[2024-07-31 12:40] LABS: BILIRUBIN, URINE NEGATIVE (negative); BLOOD/HGB, URINE NEGATIVE (Negative); KETONE, URINE NEGATIVE (Negative); LEUK ESTERASE, URINE NEGATIVE (negative); NITRITE, URINE NEGATIVE (negative); PH, URINE 7.5 (5-7)
[2024-07-31 12:48] LABS: BACTERIA, URINE NONE SEEN /hpf (negative); CASTS, URINE HYALINE 1+ \\lpf; COLLECTION TYPE, URINE CLEAN CATCH; CRYSTALS, URINE NONE SEEN (0-1+); EPITHELIAL CELLS, URINE SQUAMOUS 1+ /lpf (0-1+); RED BLOOD CELLS, URINE 0-1 /hpf (0-5); REFLEX CULTURE, URINE No (No)
[2024-07-31 12:55] LABS: HEMATOCRIT 47.9 % (35.0-50.0); HEMOGLOBIN 16.4 g/dL (12.0-18.0); MCH 30.3 (27-36); MCHC 34.3 g/dl (30-36); MCV 88.4 fl (81-99); PLATELET COUNT 277 K/uL (140-440); RBC 5.42 M/ul (4.3-5.7); RDW 14.6 (10.5-15.0)
[2024-07-31 13:10] LABS: BILIRUBIN, TOTAL 0.7 mg/dL (0.2-1.0)
[2024-07-31 13:19] LABS: BANDS, MANUAL DIFF 2; EOSINOPHILS, MANUAL DIFF 1; LYMPHOCYTES, MANUAL DIFF 9; MONOCYTES, MANUAL DIFF 12; NEUTROPHILS, MANUAL DIFF 76
[2024-07-31 13:22] LABS: ALBUMIN 3.1 g/dL (3.4-5.0); ALBUMIN/GLOBULIN RATIO 0.79 (1.1-2.4); ANION GAP 12.3 (7-21); BUN/CREATININE RATIO 21.64 (6.0-28.6); CALCIUM 8.9 mg/dL (8.5-10.1); CREATININE, SERUM 0.97 mg/dL (0.70-1.30); POTASSIUM 3.3 mmol/L (3.5-5.1)
[2024-07-31 16:07] VITALS: BP 131/92
[2024-08-01] MEDS ORDERED: AZITHROMYCIN250 MG PO (13:56)
== END 2024-07-31 16:03 | disposition home or self-care (01) ==
LOC: ED 11:51
PROVIDERS: Emergency Medicine
DX: R10.9 Unspecified abdominal pain (principal); J44.9 Chronic obstructive pulmonary disease, unspecified; Z88.0 Allergy status to penicillin; Z79.899 Other long term (current) drug therapy
CPT/HCPCS: 36415; 74176; 80053; 81001; 83690; 85025; 96374; 96375; 99284-25; J2270; J2405

== ENCOUNTER 2024-08-01 10:25 | Inpatient (IN) | payer MEDICARE, OTHER ==
[~2024-08-01] VITALS: Ht 182.9 cm; Wt 83.8 kg
[2024-08-01] MEDS ORDERED: ALBUTEROL/IPRATROPIUM 3 ML NEB ONE (10:31)
[2024-08-01 10:48] LABS: HEMATOCRIT 49.5 % (35.0-50.0); HEMOGLOBIN 16.7 g/dL (12.0-18.0); MCH 29.8 (27-36); MCHC 33.7 g/dl (30-36); MCV 88.4 fl (81-99); PLATELET COUNT 329 K/uL (140-440); RDW 14.8 (10.5-15.0)
[2024-08-01] MEDS ORDERED: CEFTRIAXONE SODIUM 1 GM in SODIUM CHLORIDE 0.9% 100 ML IV ONE ×2 (11:00→18:45)
[2024-08-01] MEDS ORDERED: LORazepam 2 MG/ML VIAL IV ONE (11:00)
[2024-08-01] MEDS ORDERED: ALBUTEROL/IPRATROPIUM 3 ML NEB INH ONE (11:00)
[2024-08-01] MEDS ORDERED: AZITHROMYCIN 250 MG TAB PO ONE (11:00)
[2024-08-01] MEDS ORDERED: OXYCODONE/APAP 5/325 TAB PO ONE (11:00)
[2024-08-01 11:07] LABS: ALBUMIN 2.9 g/dL (3.4-5.0); ALBUMIN/GLOBULIN RATIO 0.73 (1.1-2.4); ANION GAP 13.4 (7-21); BILIRUBIN, TOTAL 0.8 mg/dL (0.2-1.0); BUN/CREATININE RATIO 21.58 (6.0-28.6); CALCIUM 8.5 mg/dL (8.5-10.1); CREATININE, SERUM 1.39 mg/dL (0.70-1.30); MAGNESIUM 1.6 mg/dL (1.8-2.4); POTASSIUM 3.4 mmol/L (3.5-5.1); PROTEIN, TOTAL 6.9 g/dL (6.4-8.2)
[2024-08-01 11:09] LABS: LYMPHOCYTES, MANUAL DIFF 10; MONOCYTES, MANUAL DIFF 3; NEUTROPHILS, MANUAL DIFF 87
[2024-08-01] MEDS ORDERED: ALBUTEROL SULFATE 0.5% 2.5 MG/0.5 ML VIAL INH ONE (11:15)
[2024-08-01 12:00] LABS: LACTIC ACID, BLOOD 2.1 mmol/L (0.4-2.0)
[2024-08-01] MEDS ORDERED: ACETAMINOPHEN 325 MG TAB PO PRN (13:45)
[2024-08-01] MEDS ORDERED: ondansetron HCL 4 MG/2 ML VIAL IV PRN (13:45)
[2024-08-01] MEDS ORDERED: SODIUM CHLORIDE 0.9% 1,000 ML IV SCH ×3 (13:45→19:15)
[2024-08-01] MEDS ORDERED: AZITHROMYCIN250 MG PO (13:56)
[2024-08-01] MEDS ORDERED: ALBUTEROL SULFATE 0.083% 3 ML VIAL INH PRN (14:30)
--- NOTE | 2024-08-01 14:56 | NUR ---
Pt report received from TALHA Fong, in ED 4. Pt is A&O, states he is thirsty and his ribs hurt. 2 RN skin assessment done at bedside, noted a pressure ulcer at the top right gluteal cleft (appears to look like a large bruise with a small dime sized area of excoriation, bruised area is non-blanchable). Pt transferred via ED gurney by this RN to room 122 and pt pivot transferred to bed, then removed his jeans. Second skin assessment done with this RN and TALHA Lafleur (wound nurse) who took a photo. Pt denies having sat or laid down for long periods of time, and denies any trauma to the area. Side rails up x4, personal belongings in [facility] personal belongings bag, pt's wallet locked in pt. lock box in room. Side rails up x4, call light in reach. Pt oriented to room and call light.
[2024-08-01 14:59] VITALS: BP 109/83
--- NOTE | 2024-08-01 15:09 | NUR ---
cRITICAL LAB VALUE RECIEVED FROM LAB. LACTIC ACID 2.4 RECIEVED AT 1506, CALLED DR SARMIENTO @ [phone]. RESPOSE FROM DR SARMIENTO WAS "OK". NO NEW ORDERS.
[2024-08-01] MEDS ORDERED: ALBUTEROL/IPRATROPIUM 3 ML NEB INH SCH (16:00)
--- NOTE | 2024-08-01 16:28 | EKG ---
[facility] [address] [place] [address] Signed Sinus tachycardia Otherwise normal ECG When compared with ECG of 26-JUL-2024 15:24, No significant change was found Confirmed by Luis Manuel Sarmiento MD () on 08/01/2024 4:27:55 PM Electronically Signed By: LUIS MANUEL SARMIENTO MD 08/01/24 1628 PATIENT NAME: DWAINE VEGA JR Electrocardiogram DATE OF : 58 PHYSICIAN: LUIS MANUEL SARMIENTO MD REPORT #: [id number] REPORT IS CONFIDENTIAL AND NOT TO BE RELEASED WITHOUT AUTHORIZATION
[2024-08-01] MEDS ORDERED: MAGNESIUM CHLORIDE 64 MG TABCR PO ONE (16:45)
[2024-08-01] MEDS ORDERED: POTASSIUM CHLORIDE 10 MEQ TABCR PO ONE (16:45)
[2024-08-01] MEDS ORDERED: metroNIDAZOLE/SODIUM CHLORIDE 500 MG/100 ML PIGGYBACK IV SCH (17:00)
--- NOTE | 2024-08-01 18:20 | NUR ---
In pt room in response to call light without an answer. Found pt to be sitting up in bed, increased work of breathing with audible gurgling sounds. Suction handed to pt and instructed him to suction out what he needs to while I assessed his respirations, lung sounds, and SpO2 (which was found to be 88% on room air). Pt placed on 4LPM via NC initially, to bring spo2 up to 92%. PRN Neb tx provided to pt at this time. Attempted to contact RT, but they were busy in the ED, assisted living housekeeper notified. Dr. Moscoso notified. Dr. Moscoso in with pt for assessment and will order pain meds, bowel regiment, and labor commissioner in room to draw repeat lactic. Remained with pt until he felt his breathing is more under control. Hot pack still on pt's right side ribs. Waffle mattress in room to be placed on mattress when pt is more settled, and waffle pad placed on chair. Side rails up x4, call light and bedside table in reach.
[2024-08-01 18:35] VITALS: BP 113/68
[2024-08-01 18:36] VITALS: BP 113/68
[2024-08-01] MEDS ORDERED: BENZONATATE 100 MG CAP PO PRN (18:45)
[2024-08-01] MEDS ORDERED: MORPHINE SULFATE 4 MG/ML VIAL IV PRN ×2 (18:45→20:30)
[2024-08-01] MEDS ORDERED: guaiFENesin 600 MG TABCR PO PRN (18:45)
--- NOTE | 2024-08-01 19:14 | NUR ---
1908 - DR SARMIENTO NOTIFIED OF ELEVATED CRITICAL LACTIC ACID OF 2.5. STATED "I WAS JUST LOOKING AT LEVELS, WILL WRITE ORDERS TO INCREASE IVF AND MORPHINE FOR PAIN CONTROL.". PRIMARY RN'S MAGDALENA PALENCIA AND YOVANA RN NOTIFIED BY ME
[2024-08-01] MEDS ORDERED: BUDESONIDE 0.5 MG/2 ML VIAL INH SCH (20:00)
[2024-08-01] MEDS ORDERED: ALBUTEROL SULFATE 0.083% 3 ML VIAL INH ONE (20:30)
--- NOTE | 2024-08-01 20:45 | NUR ---
PT TRANSFERRED WITH HELP OF RT, LEAD EMBEDDED SOFTWARE ENGINEER, NURSE. BEDSIDE REPORT GIVEN TO TALHA RAZO
--- NOTE | 2024-08-01 20:45 | NUR ---
PATIENT TRANSFERED AT THIS TIME, INTO ROOM 129 CCU FROM 122 MED/SURG UNIT FOR CLOSER MONITORING DUE TO RESPIRATORY DISTRESS. RESPIRATORY AND INTO UNIT WITH PATIENT TO MONITOR. ON ARRIVAL PATIENT HAS AUDIBLE WHEEZES HEARD FROM BEDSIDE. HIS RESPIRATORY RATE 40/MIN. PATIENT RECEIVING ADDITIONAL NEBULIZER TREATMENT FROM [facility].
[2024-08-01] MEDS ORDERED: LIDOCAINE HCL 4% 1 EACH PATCH TD SCH (21:00)
--- NOTE | 2024-08-01 21:17 | NUR ---
PATIENT CONTINUES TO HAVE RESPIRATORY RATE 36/MIN, MORPHINE 4MG IV PRN ADMINISTERED AT THIS TIME FOR WORK OF BREATHING. PATIENT ALERT AND ORIENTED.
[2024-08-01 21:33] VITALS: BP 106/74
[2024-08-01 21:57] VITALS: BP 99/68
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
[2024-08-01] MEDS ORDERED: POLYETHYLENE GLYCOL 3350 1 PACKET PO SCH (23:45)
--- NOTE | 2024-08-01 23:53 | NUR ---
PATIENT UP TO RECLINER TOLERATED ACTIVITY WELL WITH STANDBY ASSIST, NO INCREASE IN RESPIRATORY DEMAND. WAFFLE MATTRESS OVERLAY PLACED FOR PATIENT HIGH RISK WITH CURRENT ULCER, SEE ASSESSMENT. PATIENT BACK TO BED. REMAINS ON 2L N.C. OXYGEN SATURATION 95% AND HIGHER, RR 25/MIN. NO DISTRESS NOTED. ASSESSMENT COMPLETE.
[2024-08-01] MEDS ORDERED: SENNOSIDES/DOCUSATE 1 EA TAB PO SCH (23:58)
[2024-08-02] VITALS (19 sets, daily range): BP systolic 93–154; BP diastolic 59–86
--- NOTE | 2024-08-02 00:08 | NUR ---
PATIENT BLADDER SCANNED FOR 210ML. PATIENT HAS NOT VOIDED SINCE TRANSFER TO CCU.
--- NOTE | 2024-08-02 00:37 | NUR ---
CALLED TO REPORT NO URINE OUT SINCE ADMISSION, BLADDER SCANNED FOR 210ML, UPDATED ON PATIENT V/S AND PRESENTATION. GAVE ORDER FOR 500ML BOLUS.
[2024-08-02] MEDS ORDERED: SODIUM CHLORIDE 0.9% 500 ML IV PRN (00:45)
--- NOTE | 2024-08-02 04:30 | NUR ---
PATIENT CALLED NURSES STATION TO REPORT PAIN AT HIS RIGHT LATERAL CHEST WALL IN BACK, 11/01 PAIN, WARM PACKS APPLIED, DISCUSSED WITH PATIENT POSSIBLY MAY HAVE A PULLED MUSCLE FROM ALL THE COUGHING, HE SAID, "YEAH, THE SAID HE THOUGHT THAT MIGHT BE IT TOO."
[2024-08-02 05:06] LABS: BASOPHILS 0.2 % (0-2); EOSINOPHILS 5.6 % (0-6); HEMATOCRIT 34.8 % (35.0-50.0); HEMOGLOBIN 11.7 g/dL (12.0-18.0); LYMPHOCYTES 8.2 % (24-44); MCH 29.8 (27-36); MCHC 33.6 g/dl (30-36); MCV 88.7 fl (81-99); MONOCYTES 9.5 % (0-12); NEUTROPHILS 76.5 % (39-80); PLATELET COUNT 216 K/uL (140-440); RBC 3.92 M/ul (4.3-5.7); RDW 14.8 (10.5-15.0)
[2024-08-02 05:25] LABS: ALBUMIN/GLOBULIN RATIO 0.69 (1.1-2.4); ANION GAP 8.6 (7-21); BILIRUBIN, TOTAL 0.4 mg/dL (0.2-1.0); BUN/CREATININE RATIO 19.08 (6.0-28.6); CALCIUM 7.1 mg/dL (8.5-10.1); CREATININE, SERUM 1.31 mg/dL (0.70-1.30); MAGNESIUM 1.4 mg/dL (1.8-2.4); PHOSPHORUS, INORGANIC 3.2 mg/dL (2.5-4.9); POTASSIUM 3.6 mmol/L (3.5-5.1); PROTEIN, TOTAL 4.9 g/dL (6.4-8.2)
--- NOTE | 2024-08-02 05:50 | NUR ---
TALKED WITH ON PHONE, UPDATED ABOUT PATIENT LABS, V/S AND SEVERE RIGHT LATERAL CHEST WALL PAIN. GAVE ORDER FOR REPLACEMENT MAGNESIUM AND CXR 2 VIEW TO CHECK FOR POSSIBLE FRACTURED/CRACKED RIB.
[2024-08-02] MEDS ORDERED: MAGNESIUM SULFATE 2 GM/50 ML BAG IV SCH (06:00)
--- NOTE | 2024-08-02 06:47 | NUR ---
PATIENT TRANSPORTED TO CXR IN WHEELCHAIR TWO STAFF ESCORT. CXR COMPLETE PATIENT BACK IN WHEELCHAIR NOTED PATIENT HAS AUDIBLE COARSE WHEEZES, CALLED Peter [facility] IN TRANSPORT FOR ADDITIONAL NEB TX, PATIENT BACK TO BED, NEB TX PROVIDED, PATIENT DID NOT BECOME TACHYCARDIC, WAS TACHYPNEIC RATE IN 30'S/MIN. AT REST AFTER NEB TX, PATIENTS V/S WNL NOW.
[2024-08-02] MEDS ORDERED: AZITHROMYCIN 500 MG in DEXTROSE 5% 250 ML IV SCH (09:00)
[2024-08-02] MEDS ORDERED: LIDOCAINE PATCH REMOVAL 1 EA TD SCH (09:00)
[2024-08-02] MEDS ORDERED: CEFTRIAXONE SODIUM 2 GM in SODIUM CHLORIDE 0.9% 100 ML IV SCH (09:00)
[2024-08-02] MEDS ORDERED: ENOXAPARIN SODIUM 40 MG/0.4 ML SYR SUB-Q SCH (09:00)
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
[2024-08-02] MEDS ORDERED: POTASSIUM CHLORIDE 10 MEQ TABCR PO ONE (10:00)
[2024-08-02] MEDS ORDERED: LISINOPRIL40 MG PO (10:29)
[2024-08-02] MEDS ORDERED: BUPRENORPHINE-1 EACH SL (10:29)
[2024-08-02] MEDS ORDERED: ATORVASTATIN CA40 MG PO (10:31)
[2024-08-02] MEDS ORDERED: GABAPENTIN300 MG PO (10:33)
--- NOTE | 2024-08-02 11:06 | NUR ---
PATIENT RESTING IN BED, WATCHING TV AT THIS TIME AND REMAINS ON 1 L NC. PT HAS A PRODUCTIVE SOUNDING FREQUENT COUGH, BUT DENIES BEING ABLE TO EXPECTORATE ANYTHING UP. HR IN THE 80s. PT ABLE TO TAKE ALL HIS AM PILLS WITH APPLESAUCE. RR 17 AND NON LABORED AT THIS TIME.
[2024-08-02] MEDS ORDERED: BUDESONIDE-FO10.2 G1 INH (11:35)
[2024-08-02] MEDS ORDERED: TRELEGY ELLIPT1 EAC1 INH (11:36)
[2024-08-02] MEDS ORDERED: PHARMACY RENAL DOSE ADJUSTMENT 1 DOSE MISC PO SCH (12:00)
--- NOTE | 2024-08-02 12:53 | NUR ---
PATIENT USING HIS ACAPELLA AND COUGHING, STARTING TO HAVE LOUD EXP WHEEZING NOISES COMING FROM UPPER AIRWAY AND ENDORSES SHORTNESS OF BREATH. INSPIRATORY BREATH SOUNDS ARE CLEAR TO AUSCULTATION. PT ALSO C/O PAIN IN RIGHT RIB AREA. DR. SARMIENTO CALLED AND NOTIFIED. ORDER REC'D TO GIVE DOSE OF RACEMIC EPI. ORDER PLACED AND RT NOTIFIED, BUT BY TIME RT PULLED NEB TX, PATIENT'S WHEEZING HAS CEASED. WILL HOLD OFF ON GIVING UNLESS NEEDED AGAIN. PT WAS GIVEN PRN MORPHINE PER EMAR. WILL CONTINUE TO MONITOR.
[2024-08-02] MEDS ORDERED: EPINEPHRINE 2.25% 0.5 ML AMP NEB ONE (13:00)
[2024-08-02] MEDS ORDERED: MAGNESIUM CITRATE 300 ML BTL PO ONE (14:30)
[2024-08-02] MEDS ORDERED: bisacodyL 10 MG SUPP PR PRN (14:45)
--- NOTE | 2024-08-02 15:06 | NUR ---
PATIENT GIVEN MAG CITRATE. SUPPOSITORY AVAILABLE IF NEEDED. PATIENT AGREEABLE TO PLAN. WILL GET PATIENT UP TO BEDSIDE COMMODE WHEN HE FEELS READY TO HAVE A BM.
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
--- NOTE | 2024-08-02 17:41 | NUR ---
PATIENT UP TO BATHROOM TO TRY AND HAVE A BM BUT UNSUCCESSFUL. PATIENT GIVEN SUPPOSITORY. NO STOOL FELT WHEN GIVING SUPPOSITORY. PATIENT NOW SITTING IN CHAIR AND EATING DINNER. PT TAKEN OFF OXYGEN SP02 WAS 100% ON 1 L NC. SP02 IS NOW 96%. LAST BP 137/81. PT ALSO VOIDED TO TOILET AND WILL LIKELY TAKE PUREWICK OFF.
--- NOTE | 2024-08-02 19:00 | NUR ---
PATIENT ABLE TO HAVE A BM IN BATHROOM AND APPEARED HARD AND FORMED. THERE WAS SMALL AMOUNT OF BLOOD IN TOILET SURROUNDING HIS STOOL AND PATIENT WAS CONCERNED ABOUT THIS. IT APPEARED LIKE IT COULD HAVE BEEN THE RESULT OF HARD STOOL COMING OUT SINCE HE HADN'T HAD A BM SINCE 07/26. PT SLIGHLTY SHORT OF BREATH AFTER THIS ACTIVITY AND ALSO PAINFUL IN RIGHT SIDE/CHEST. PT GIVEN PRN MORPHINE AT THIS TIME AND ALSO GIVEN A WARM BLANKET. LAST BP AT 1800 WAS 139/79. PT STILL HAVE PUREWICK IN PLACE BUT HAS VOIDED X2 IN TOILET. REPORT TO [facility].
--- NOTE | 2024-08-02 20:00 | NUR ---
PATIENT CAN BE HEARD AUDIBLY WHEEZING FROM NURSES STATION ACROSS [place] FROM PATIENT ROOM, SUDDEN ONSET, THIS RN INTO PATIENT ROOM, HE IS SITTING FORWARD IN BED RESPIRATORY RATE 27-33/MIN. RESPIRATORY THERAPIST TASNEEM CALLED TO ROOM, ANOTHER [facility] PROVIDED, CHECKING INTO UNIT ROUNDING, NOW IN ROOM. NEW ORDER FOR PATIENT TO HAVE ADDITIONAL 2MG IV MORPHINE. DISCUSSED CARE PLAN WITH , MAKE PATIENT NPO AT THIS TIME. HOLD PO MEDS FOR TONIGHT WELL.
[2024-08-02] MEDS ORDERED: EPINEPHRINE 2.25% 0.5 ML AMP NEB PRN (20:15)
[2024-08-02] MEDS ORDERED: MORPHINE SULFATE 4 MG/ML VIAL ONE (20:28)
[2024-08-02] MEDS ORDERED: LORazepam 2 MG/ML VIAL IV PRN (20:30)
[2024-08-02] MEDS ORDERED: MORPHINE SULFATE 4 MG/ML VIAL IV ONE (20:30)
--- NOTE | 2024-08-02 20:30 | NUR ---
PATIENT NOW FULLY RECOVERED, RESTING QUIELTY IN BED. THROUGHOUT EPISODE OF RESPIRATORY DISTRESS SYMPTOMS PATIENT HAD GOOD AIR MOVEMENT IN ALL LUNG RODRIGUEZ, EXPIRATORY WHEEZES WAS AUDIBLY IN UPPER AIRWAY, NOW RESOLVED. PATIENT OXYGEN SATURATION MAINTAINED 95%AND ABOVE ON ROOM AIR THROUGHOUT, CHARLENNE PLACED PATIENT TO 2L N.C. FOR SUPPORT. NOW PATIENT HAS ONLY MINIMAL EXPIRATORY WHEEZES IN UPPER AIRWAY ON AUSCULTATION. HAS BEEN PROVIDED NOW WITH ORAL CARE SPONGES TO MOISTEN MOUTH NEEDED. PATIENT VERBALIZED NO FURTHER NEEDS AT THIS TIME.
[2024-08-03] VITALS (13 sets, daily range): BP systolic 102–142; BP diastolic 57–93
--- NOTE | 2024-08-03 00:25 | NUR ---
PATIENT HAS BEEN NAPPING INTERMITTEN, HE IS CURRENTLY ALERT AND ORIENTED SITTING UP IN BED WATCHING TV.
--- NOTE | 2024-08-03 01:26 | NUR ---
PATIENT CURRENTLY RESTING IN BED, REPOSITIONED SELF TO LEFT SIDE, EYES CLOSED, RESPIRATORY RATE 13/MIN, NO DISTRESS NOTED.
--- NOTE | 2024-08-03 04:01 | NUR ---
PATIENT ALERT AND ORIENTED AT THIS TIME, BOOSTED UP IN BED, HE HAS BEEN REPOSITIONING HIMSELF SIDE TO SIDE REGULARLY. HE REPORTS PAIN IS WELL MANAGED AT THIS TIME. Peter BOATENG INTO ROOM FOR [facility]. ASSESSMENT AND V/S COMPLETE, NO NEW CONCERNS.
[2024-08-03 05:19] LABS: BASOPHILS 0.1 % (0-2); EOSINOPHILS 7.8 % (0-6); HEMATOCRIT 34.7 % (35.0-50.0); HEMOGLOBIN 11.8 g/dL (12.0-18.0); LYMPHOCYTES 9.1 % (24-44); MCV 88.3 fl (81-99); MONOCYTES 13.1 % (0-12); NEUTROPHILS 69.9 % (39-80); PLATELET COUNT 262 K/uL (140-440); RBC 3.93 M/ul (4.3-5.7); RDW 14.8 (10.5-15.0)
[2024-08-03 05:37] LABS: ALBUMIN/GLOBULIN RATIO 0.69 (1.1-2.4); ANION GAP 6.3 (7-21); BILIRUBIN, TOTAL 0.4 mg/dL (0.2-1.0); CALCIUM 7.6 mg/dL (8.5-10.1); POTASSIUM 4.3 mmol/L (3.5-5.1); PROTEIN, TOTAL 4.9 g/dL (6.4-8.2)
--- NOTE | 2024-08-03 09:06 | NUR ---
DR. SARMIENTO IN TO SEE PATIENT AT THIS TIME AND PLAN OF CARE BEING DISCUSSED. PT TO HAVE CT SCAN OF LUNGS THIS AM AND ALSO WILL HAVE EVAL WITH SPEECH THERAPY. PT REPORTS NO PAIN AT THIS TIME WHICH IS MUCH IMPROVEMENT FROM YESTERDAY. PT CONTINUE TO VOID TO PUREWICK. IV ABX INFUSING. CONTINUE TO MONITOR.
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
--- NOTE | 2024-08-03 09:49 | NUR ---
CALLED [facility] TO REQUEST SWALLOW STUDIES PER SPEECH REQUEST. FAX REQUEST SENT.
--- NOTE | 2024-08-03 10:28 | NUR ---
CALLED AND SPOKE WITH ILENE AT [facility]. THEY HAVE NO DOCUMENTATION OF EVER DISTRIBUTING A NEBULIZER TO PATIENT, BUT THEY DO HAVE HIM IN THEIR SYSTEM.
--- NOTE | 2024-08-03 10:45 | NUR ---
PT NOT AVAILABLE FOR VISIT. PROVIDED PRAYER.
--- NOTE | 2024-08-03 10:53 | NUR ---
PATIENT TAKEN DOWN TO CT SCAN IN CHAIR FROM ROOM AND CT SCAN COMPLETE. PT TOLERATED WELL. PT STILL ON ROOM AIR AND DENIES ANY SHORTNESS OF BREATH. SPEECH HAS SEEN PATIENT AND IS RECOMMENDING MINCED AND MOIST WITH SLIGHLTY THICK LIQUIDS. PT'S PUREWICK TAKEN OFF HE IS ABLE TO VOID TO URINAL WITHOUT DIFFICULTY.
--- NOTE | 2024-08-03 13:41 | NUR ---
UR CLINICAL REVIEW: 2 MN FOR [facility]ERS[facility]-PER FIRE MARSHAL MEETS INPT FOR AHRF WITH NEED FOR SUPPLEMENTAL OXYGEN MEDICARE INPT 08/01/24 @ 3069 ORDER MATCHES REG NO AUTH REQUIRED PER MEDICARE GUIDELINES DISCHARGE DISPO PENDING FURTHER CASE MANAGEMENT EVAL.
--- NOTE | 2024-08-03 14:05 | NUR ---
CT SCAN FINDINGS DISCUSSED WITH PATIENT BY DR. SARMIENTO. REPEAT CT SCAN DONE AFTER STARTING NEW IV IN LEFT FOREARM AND PATIENT TOLERATED WELL. IVF CONTINUE AT 125 ML/HR. PT TO LIKELY BE TRANSFERRED TO A LARGER HOSPITAL FOR EVALUATION AND CARE OF CHEST CT FINDINGS. PATIENT REMAINS ON ROOM AIR AND SP02 IS 99%. PT DENIES SHORTNESS OF BREATH AND ALSO STATES THE PAIN HE WAS HAVING ON RIGHT SIDE CHEST IS BETTER. PT MAKING CALLS TO NOTIFY OTHERS OF HIS POTENTIAL TRANSFER. PT VOIDS TO URINAL.
--- NOTE | 2024-08-03 16:11 | NUR ---
IN TO SEE PATIENT AND PLAN OF CARE DISCUSSED. DR. SANTANA HAS CONSULTED DR. BARBOUR TO SEE PATIENT ABOUT POTENTIAL DRAINAGE OF LUNG ABSCESS. PT NOW RESTING IN BED AND REMAINS ON ROOM AIR. IVF REMAIN AT 125 ML/HR.
--- NOTE | 2024-08-03 18:04 | NUR ---
PATIENT HAVING ANOTHER UPPER AIRWAY BRONCHOSPASM WITH LOUD EXP WHEEZING HEARD. RT CALLED AND NOW GIVING PRN NEB TX. RR IN THE LOW 30s BUT SP02 IS 98-99% STILL ON ROOM AIR. PT SOMEWHAT DISTRESSED BUT WORKING HARD TO REMAIN CALM. PT ASKING FOR PUREWICK TO BE BACK ON TONIGHT BECAUSE OF HOW FREQUENTLY HE IS VOIDING.
--- NOTE | 2024-08-03 19:30 | NUR ---
PATIENT REPORTS PAIN 9/10 AT RIGHT CHEST WALL. DISCUSSED WITH PATIENT ONGOING PLAN OF CARE, INCLUDING POTENTIAL TRANSFER TO HIGHER LEVEL TOMORROW. PATIENT VERBALIZED UNDERSTANDING AND AGREEABLE WITH ALL PLAN OF CARES AND TRANSFER IF NEEDED.
--- NOTE | 2024-08-03 22:07 | NUR ---
PATIENT RESTING IN BED EYES CLOSED RESPIRATORY RATE 12/MIN, V/S ON MONITOR WNL. NO DISTRESS NOTED ON ROUNDING.
[2024-08-04] VITALS (9 sets, daily range): BP systolic 107–149; BP diastolic 72–94
--- NOTE | 2024-08-04 00:47 | NUR ---
PATIENT RESTING QUIELTY IN BED, ALERT OT RN AT BEDSIDE FOR ASSESSMENT, HE REPORTS PAIN IS "GOOD, NO PAIN" AT THIS TIME. NO NEW CONCERNS ON ASSESSMENT, V/S STABLE
--- NOTE | 2024-08-04 03:45 | NUR ---
PATIENT ALERT TO R.T. AT BEDSIDE FOR SCHEDULED TX. HE REPORTS HE HAS BEEN SLEEPING WELL. PATIENT ASSISTED IN BOOST UP IN BED. HE REPORTS NO PAIN AT RIGHT CHEST AT THIS TIME.
[2024-08-04 05:13] LABS: BASOPHILS 0.3 % (0-2); EOSINOPHILS 5.6 % (0-6); HEMATOCRIT 34.9 % (35.0-50.0); HEMOGLOBIN 11.9 g/dL (12.0-18.0); LYMPHOCYTES 9.4 % (24-44); MCH 30.2 (27-36); MCHC 34.1 g/dl (30-36); MCV 88.5 fl (81-99); NEUTROPHILS 71.7 % (39-80); PLATELET COUNT 277 K/uL (140-440); RBC 3.94 M/ul (4.3-5.7); RDW 14.6 (10.5-15.0)
--- NOTE | 2024-08-04 05:17 | NUR ---
PATIENT ALERT AND ORIENTED FOR LAB DRAW THIS AM, RESTING BACK IN BED AT THIS TIME, EYES CLOSED RESPIRATIONS 14/MIN. NO DISTRESS NOTED ON ROUNDING.
[2024-08-04 05:27] LABS: ALBUMIN 2.1 g/dL (3.4-5.0); ALBUMIN/GLOBULIN RATIO 0.64 (1.1-2.4); ANION GAP 8.3 (7-21); BILIRUBIN, TOTAL 0.4 mg/dL (0.2-1.0); BUN/CREATININE RATIO 12.04 (6.0-28.6); CALCIUM 7.7 mg/dL (8.5-10.1); CREATININE, SERUM 0.83 mg/dL (0.70-1.30); POTASSIUM 4.3 mmol/L (3.5-5.1); PROTEIN, TOTAL 5.4 g/dL (6.4-8.2)
--- NOTE | 2024-08-04 07:45 | NUR ---
PATIENT RESTING IN BED UPON INITIAL ASSESSMENT AND SP02 IS 95% ON ROOM AIR. PT HAS BEEN USING THE PUREWICK OVERNIGHT AND HAS VOIDED >3800 ML OVERNIGHT. PATIENT WILL LIKELY BE TRANSFERRED TODAY AFTER SEEKING CONSULTATION FOR THE FINDINGS ON CHEST CT FROM YESTERDAY. PT STATES HE SLEPT WELL OVERNIGHT. WILL CONTINUE TO MONITOR.
[2024-08-04] MEDS ORDERED: BUDESONIDE 0.5 MG/2 ML VIAL INH SCH (08:00)
--- NOTE | 2024-08-04 08:07 | CONS ---
[facility] [address], [place] [address] Signed DATE OF CONSULTATION: 08/03/2024 REQUESTING PHYSICIAN: Dr. Smith. ISSUE: Right lower lobe pneumonia, segments of pulmonary emboli and pleural effusion with possible right lower lobe lung abscess. HISTORY OF PRESENT ILLNESS: This 64-year-old white male was admitted two days ago by Dr. Moscoso with complaints of a cough and right flank pain. He presented to the emergency room with shortness of breath. He had been recently in the emergency department with respiratory failure, intubated and transferred to [facility] in the [facility]. He was discharged two days prior to current discharge and returned to the ER locally for abdominal pain and flank pain. He was noted to have multifocal pneumonia. The patient has a distant history of HIV for which he has undetectable viral load according to his understanding. The patient had shortness of breath and pain and had not been taking antibiotics as had been prescribed following his discharge. His evaluation in the emergency room showed sinus tachycardia at a heart rate of 104 and no evidence of ischemic change on EKG. He was treated with albuterol, ceftriaxone, azithromycin and Ativan and admitted for further evaluation and care. Yesterday, on August [address] Moscoso showed the patient to be in no distress, feeling better and breathing easier on 2 L nasal cannula oxygen. His white count was only mildly elevated at 12.8 with hematocrit at 34.8. Chem profile normal though creatinine elevated at 1.39. A chest x-ray showed mild bibasilar pulmonary opacification similar to an x-ray on 07/31 and probable minimal right pleural effusion and persistent right basilar atelectasis and/or consolidation. There is a nonspecific newly visible opacity in the medial left lung base and chronic elevation of the right hemidiaphragm. Today, Dr. Moscoso transferred care to Dr. Smith, the hospitalist. The patient is doing much better, but had an episode of cough in a respiratory distress the night before requiring racemic epinephrine nebulizer, which was immediately beneficial to him. Though, he was clinically well much improved, a chest CT was obtained to better characterize the pneumonia. The CT scan of the chest done at 10:40 a.m. today performed, showed a loculated gas containing fluid collection in the lateral right lower lobe (within the parenchyma of the lung) 4.5 x 2.4 cm, suspicious for a pulmonary abscess. There is increased patchy bibasilar "tree-in-bud" nodular and interstitial opacity in the lower lungs with distal bronchial wall thickening and multiple areas of mucosal plugging consistent with bronchopneumonia. A small right pleural effusion with two small locules of gas noted as well. There were filling defects and branching points at the right middle and lower lobe segmental pulmonary arteries suspicious for pulmonary emboli. A CT scan of the CTA type was then performed today at 2:00 p.m., which showed small pulmonary emboli of the right middle and lower lobe with no evidence of heart strain. The loculated gas containing fluid collection Electronically Signed By: ERASMO BARBOUR MD 08/04/24 0807 PATIENT NAME: DWAINE VEGA CONSULTATION DATE OF : 58 REPORT #: [id number] PHYSICIAN: ERASMO BARBOUR MD PCP: JESSIE BUENO PA-C REPORT IS CONFIDENTIAL AND NOT TO BE RELEASED WITHOUT AUTHORIZATION [address] [address] Signed within the parenchyma of the lung 4.5 x 2.4 cm consistent with pulmonary abscess and a small right pleural effusion as previously noted. Consultation is undertaken on that basis by Dr. Smith. The patient right now feels completely fine. He is having no shortness of breath, dyspnea, fever, or other issue. He denies hemoptysis. PHYSICAL EXAMINATION: GENERAL: A pleasant white man who is sitting upright and looks to be in no distress. HEENT: Trachea is midline. CHEST: Clear. There is no wheeze or rhonchi. HEART: Regular without murmur. There is no peripheral edema. I have reviewed the CT scan, chest x-rays, and so forth in detail. ASSESSMENT AND PLAN: The patient had a serious pneumonia more than a week ago, which may have evolved to an area of necrosis and intraparenchymal lung abscess and although small at 2.6 x 4.5 cm, it is quite notable. This is associated with what appears to be limited pulmonary emboli of the lower and middle lobes as well. The effusion is relatively small and may represent a parapneumonic effusion, which of course is at increased risk of abscess formation (empyema) particularly of parenchyma of an infarcted segment of lung and lung abscess necessitates into the pleural space. It is notable that a chest tube may be beneficial in draining the space and may reveal ultimately in time a bronchopleural abscess. I will discuss this further with Dr. Smith, as I will be leaving town tomorrow morning for more than a week. He may require a higher level of care, particularly for a consideration of thoracoscopic approach to placement of a chest tube and/or parenchymal drainage approach to the apparent lung abscess. Notably, his clinical appearance appears to be completely contrary to the appearance on a CT scan; he appears healthy, alert and oriented and without any distress at all. It is certainly a possibility that his problem treated elsewhere has evolved and is in fact resolving compared to what is now present and what may have been present before. I do not have those images of his prior hospitalization to compare. Erasmo Barbour MD Electronically Signed By: ERASMO BARBOUR MD 08/04/24 0807 PATIENT NAME: SILVIADWAINE JR CONSULTATION DATE OF : 58 REPORT #: [id number] PHYSICIAN: ERASMO BARBOUR MD PCP: JESSIE BUENO PA-C REPORT IS CONFIDENTIAL AND NOT TO BE RELEASED WITHOUT AUTHORIZATION [address] [place], [place] [address] Signed /[id number] /[id number] cc: Dr. Sarah Moscoso MD Copies: ~ Electronically Signed By: ERASMO BARBOUR MD 08/04/24 0807 PATIENT NAME: SILVIADWAINE JR CONSULTATION DATE OF : 58 REPORT #: [id number] PHYSICIAN: ERASMO BARBOUR MD PCP: JESSIE BUENO PA-C REPORT IS CONFIDENTIAL AND NOT TO BE RELEASED WITHOUT AUTHORIZATION
[2024-08-04] MEDS ORDERED: MAGNESIUM CITRATE 300 ML BTL PO ONE (08:45)
--- NOTE | 2024-08-04 09:35 | NUR ---
ALERT AND ORIENTED IN BED. DISCUSSED PROBABLE TRANSFER TO OUTSIDE FACILITY. INSTRUCTED TO NOTIFY STAFF OF HIS LACK OF EQUIPMENT AT NEXT FACILITY SO THEY CAN ASSIST TO GET SET UP PRIOR TO DC FROM THAT FACILITY. DENIES OTHER NEEDS AT THIS TIME.
[2024-08-04] MEDS ORDERED: bisacodyL 10 MG SUPP PR ONE (12:15)
--- NOTE | 2024-08-04 14:41 | NUR ---
PATIENT TRANSFERRED TO [facility] AT 1420 [facility] FOR FURTHER EVALUATION OF POTENTIAL LUNG ABSCESS/DEVELOPMENING EMPYEMA AND MANAGEMENT OF THIS. PATIENT REMAINS ON ROOM AIR. PT CONTINUES WITH PUREWICK AND SUCTION TUBING SENT WITH EMS CREW. ALL PERSONAL BELONGINGS SENT WITH PATIENT INCLUDING HIS CELL PHONE AND WALLET. PATIENT DID NOT HAVE A CELL PHONE ARCHITECTURAL INSPECTOR WITH HIM. REPORT CALLED TO YEHUDA PALENCIA AT [facility] AND PATIENT GOING TO ROOM 8114. PT REPORTED THAT SOMEONE WAS GOING TO BE BRINGING HIS HIV MEDS TO HIS HOSPITAL ROOM AT [facility].
[2024-08-04 16:17] LABS: % CD4 29 % (35-68); ABSOLUTE CD4 315 cells/uL (490-1600)
== END 2024-08-04 14:20 | disposition short-term general hospital (02) | DRG 871 ==
LOC: ED 10:25 → MS 13:45 → CCU 13:45
PROVIDERS: Emergency Medicine; ADMIT Family Medicine; ATTEND Family Medicine
DX: A41.9 Sepsis, unspecified organism (principal); I26.99 Other pulmonary embolism without acute cor pulmonale; J69.0 Pneumonitis due to inhalation of food and vomit; J85.1 Abscess of lung with pneumonia; J18.9 Pneumonia, unspecified organism; N17.9 Acute kidney failure, unspecified; J44.89 Other specified chronic obstructive pulmonary disease; Z21 Asymptomatic human immunodeficiency virus [HIV] infection status; G62.9 Polyneuropathy, unspecified; E87.6 Hypokalemia; K59.00 Constipation, unspecified; L89.319 Pressure ulcer of right buttock, unspecified stage; R07.89 Other chest pain; E83.42 Hypomagnesemia; Z85.818 Personal history of malignant neoplasm of other sites of lip, oral cavity, and pharynx; Z90.49 Acquired absence of other specified parts of digestive tract; Z98.890 Other specified postprocedural states; Z85.118 Personal history of other malignant neoplasm of bronchus and lung; Z99.81 Dependence on supplemental oxygen; Z88.0 Allergy status to penicillin; Z79.52 Long term (current) use of systemic steroids; Z79.899 Other long term (current) drug therapy; Z79.51 Long term (current) use of inhaled steroids; Z79.811 Long term (current) use of aromatase inhibitors; Z79.2 Long term (current) use of antibiotics; Z87.891 Personal history of nicotine dependence
CPT/HCPCS: 36415; 71045; 71046; 71260; 80053; 83605; 83735; 84100; 84484; 85025; 92523; 92526; 92610; 93005; 93010; 94640; 94644; 94667; 94668; 94799; 96365; 96375; 99285-25; A9270; J0456; J0696; J1650; J2060; J2270; J3475; J7030; J7040; J7060; Q9967

== ENCOUNTER 2024-08-10 08:07 | Emergency (ER) | payer MEDICARE, OTHER ==
[~2024-08-10] VITALS: Ht 182.9 cm; Wt 83.8 kg
[~2024-08-10 08:07] MED LIST changes: +ATORVASTATIN CA40 MG PO; +BUDESONIDE-FO10.2 G1 INH; +BUPRENORPHINE-1 EACH SL; +GABAPENTIN300 MG PO; +LISINOPRIL40 MG PO; +TRELEGY ELLIPT1 EAC1 INH
--- OUTSIDE RECORDS SUMMARY | 2024-08-10 08:12 | XMS ---
PreManage Notification: DWAINE VEGA Security Court Bailiff Or Sheriff Events No recent Security Events currently on file CRITERIA MET - 6 ED Visits in 6 Months - [facility] - 2 Visits in 30 Days CARE PROVIDERS [facility]/Center: [facility] ([facility]) PHONE: [phone] JESSIE BUENO Physician Die Casting Supervisor Current PHONE: [phone] Blanka Dumont Procurement Agent/Supervisor Car Installations Current PHONE: [phone] Colette has no Care Guidelines for this patient. E.D. VISIT COUNT (12 MO.) [address] [facility] TOTAL 14 NOTE: Visits indicate total known visits. ED/UCC VISIT TRACKING (12 MO.) 08/10/2024 08:08 [facility] [place] TYPE: Emergency COMPLAINT: - NOSE BLEED 08/01/2024 10:25 [facility] [place] TYPE: Emergency COMPLAINT: - DIFFICULTY BREATHING 07/31/2024 11:52 [facility] [place] TYPE: Emergency COMPLAINT: - FLANK PAIN DIAGNOSES: - Allergy status to penicillin - Chronic obstructive pulmonary disease, unspecified - Other mcc (current) drug therapy - Unspecified abdominal pain 07/26/2024 12:20 [facility] [place] TYPE: Emergency COMPLAINT: - SHORTNESS OF BREATH DIAGNOSES: - Allergy status to penicillin - Chronic obstructive pulmonary disease, unspecified - Other terminal operations supervisor (current) drug therapy - Other psychoactive substance abuse, uncomplicated - Respiratory failure, unspecified, unspecified whether with hypoxia or hypercapnia - Shortness of breath - Unspecified kidney failure 05/22/2024 22:15 [facility] [place] TYPE: Emergency COMPLAINT: - SOB DIAGNOSES: - Allergy status to penicillin - Chronic obstructive pulmonary disease with (acute) exacerbation - Other terminal operations supervisor (current) drug therapy - Other specified abnormal findings of blood chemistry - Shortness of breath 2024 07:41 [facility] [place] TYPE: Emergency COMPLAINT: - SHORTNESS OF BREATH DIAGNOSES: - Allergy status to penicillin - Chronic obstructive pulmonary disease with (acute) exacerbation - penitentiary (current) use of inhaled steroids - technician terminal and repeater (current) use of systemic steroids - Other mcc (current) drug therapy - Polyneuropathy, unspecified - Shortness of breath 04/30/2024 20:04 [facility] [place] TYPE: Emergency COMPLAINT: - TROUBLE BREATHING DIAGNOSES: - Allergy status to penicillin - Chronic obstructive pulmonary disease with (acute) exacerbation - Other terminal operations supervisor (current) drug therapy - Shortness of breath 04/05/2024 10:25 [facility] [place] TYPE: Emergency COMPLAINT: - SHORTNESS OF BREATH DIAGNOSES: - Allergy status to penicillin - Chronic obstructive pulmonary disease with (acute) exacerbation - penitentiary (current) use of inhaled steroids - Other mcc (current) drug therapy - Polyneuropathy, unspecified - Shortness of breath 03/02/2024 02:38 [facility] [place] TYPE: Emergency COMPLAINT: - DIFFICULTY BREATHING 02/05/2024 15:48 [facility] [place] TYPE: Emergency COMPLAINT: - ALLERGIC REACTION,WHEEZING DIAGNOSES: - Allergy status to penicillin - Chronic obstructive pulmonary disease, unspecified - Other terminal operations supervisor (current) drug therapy - Polyneuropathy, unspecified - Rash and other nonspecific skin eruption 01/22/2024 10:38 [facility] [place] TYPE: Emergency COMPLAINT: - POSS ALLERGIC REACTION DIAGNOSES: - Allergy status to penicillin - Allergy, unspecified, initial encounter - Chronic obstructive pulmonary disease with (acute) lower respiratory infection - technician terminal and repeater (current) use of inhaled steroids - Other mcc (current) drug therapy - Personal history of irradiation - Personal history of malignant neoplasm of other sites of lip, oral cavity, and pharynx - Pneumonia, unspecified organism - Polyneuropathy, unspecified - Shortness of breath 11/28/2023 01:44 [facility] [place] TYPE: Emergency COMPLAINT: - SOB DIAGNOSES: - Allergy status to penicillin - Chronic obstructive pulmonary disease with (acute) exacerbation - technician terminal and repeater (current) use of inhaled steroids - penitentiary (current) use of systemic steroids - Other mcc (current) drug therapy - Other specified chronic [...] initial encounter for closed fracture - Other mcc (current) drug therapy - Pain in right shoulder - Unspecified fall, initial encounter 08/18/2023 16:41 [facility] [place] TYPE: Emergency COMPLAINT: - ALLERGIC REACTION DIAGNOSES: - Allergy status to penicillin - Allergy, unspecified, initial encounter - Chronic obstructive pulmonary disease, unspecified - Other mcc (current) drug therapy - Unspecified contact dermatitis, unspecified cause INPATIENT VISIT TRACKING (12 MO.) 08/04/2024 15:59 [facility] TYPE: Internal Medicine DIAGNOSES: - Abscess of lung with pneumonia - Acute respiratory distress - Elevated urine levels of drugs, medicaments and biological substances - Laryngeal spasm - Other pulmonary embolism without acute cor pulmonale - Pneumonitis due to inhalation of food and vomit - empyema - lung abscess - pulmonary embolism 08/01/2024 13:45 [facility] [place] TYPE: Critical Care COMPLAINT: - PNEUMONIA DIAGNOSES: - Abscess of lung with pneumonia - Abscess of lung with pneumonia - Acquired absence of other specified parts of digestive tract - Acquired absence of other specified parts of digestive tract - Acute kidney failure, unspecified - Acute kidney failure, unspecified - Allergy status to penicillin - Allergy status to penicillin - Chronic obstructive pulmonary disease, unspecified - Constipation, unspecified - Constipation, unspecified - Dependence on supplemental oxygen - Dependence on supplemental oxygen - Hypokalemia - Hypokalemia - Hypomagnesemia - Hypomagnesemia - technician terminal and repeater (current) use of antibiotics - penitentiary (current) use of antibiotics - penitentiary (current) use of aromatase inhibitors - penitentiary (current) use of aromatase inhibitors - penitentiary (current) use of inhaled steroids - technician terminal and repeater (current) use of inhaled steroids - penitentiary (current) use of systemic steroids - penitentiary (current) use of systemic steroids - Other chest pain - Other chest pain - Other terminal operations supervisor (current) drug therapy - Other mcc (current) drug therapy - Other pulmonary embolism without acute cor pulmonale - Other pulmonary embolism without acute cor pulmonale - Other specified chronic obstructive pulmonary disease - Other specified chronic obstructive pulmonary disease - Other specified postprocedural states - Other specified postprocedural states - Personal history of malignant neoplasm of other sites of lip, oral cavity, and pharynx - Personal history of malignant neoplasm of other sites of lip, oral cavity, and pharynx - Personal history of nicotine dependence - Personal history of nicotine dependence - Personal history of other malignant neoplasm of bronchus and lung - Personal history of other malignant neoplasm of bronchus and lung - Pneumonia, unspecified organism - Pneumonia, unspecified organism - Pneumonitis due to inhalation of food and vomit - Pneumonitis due to inhalation of food and vomit - Polyneuropathy, unspecified - Polyneuropathy, unspecified - Pressure ulcer of right buttock, unspecified stage - Pressure ulcer of right buttock, unspecified stage - Sepsis, unspecified organism - Sepsis, unspecified organism - Shortness of breath 07/26/2024 18:57 [facility] TYPE: Medical Surgical COMPLAINT: - Pneumonia DIAGNOSES: [...] pulmonary disease with (acute) exacerbation - Other mcc (current) drug therapy - Personal history of nicotine dependence - Pneumonia, unspecified organism [email or web address]
[2024-08-10] MEDS ORDERED: OXYMETAZOLINE HCL 30 ML BTL NAS ONE (08:30)
[2024-08-10] MEDS ORDERED: SULFAMETHOXAZO1 EAC1 PO (09:10)
[2024-08-10] MEDS ORDERED: CEFDINIR300 MG PO (09:10)
[2024-08-10] MEDS ORDERED: ELIQUIS5 MG PO (09:11)
[2024-08-10] MEDS ORDERED: METRONIDAZOLE500 MG PO (09:11)
[2024-08-10] MEDS ORDERED: TRANEXAMIC ACID 1,000 MG/10 ML AMP NAS ONE (10:00)
[2024-08-10 10:41] VITALS: BP 168/98
== END 2024-08-10 10:42 | disposition home or self-care (01) ==
LOC: ED 08:07
DX: R04.0 Epistaxis (principal); J44.89 Other specified chronic obstructive pulmonary disease; Z79.51 Long term (current) use of inhaled steroids; Z79.899 Other long term (current) drug therapy; Z88.0 Allergy status to penicillin
CPT/HCPCS: 99283

== ENCOUNTER 2024-08-12 07:15 | Emergency (ER) | payer MEDICARE, OTHER ==
[~2024-08-12] VITALS: Ht 182.9 cm; Wt 83.1 kg
[~2024-08-12 07:15] MED LIST changes: +ELIQUIS5 MG PO; +SULFAMETHOXAZO1 EAC1 PO
--- OUTSIDE RECORDS SUMMARY | 2024-08-12 07:21 | XMS ---
PreManage Notification: DWAINE VEGA Security Ux Interaction Designer Events No recent Security Events currently on file CRITERIA MET - 6 ED Visits in 6 Months - [facility] - 2 Visits in 30 Days CARE PROVIDERS [facility]/Center: [facility] ([facility]) PHONE: [phone] JESSIE BUENO Physician Laundry Agent Current PHONE: [phone] Blanka Dumont Catalogue Compiler/Resort Host Current PHONE: [phone] Colette has no Care Guidelines for this patient. E.D. VISIT COUNT (12 MO.) 15 [facility] TOTAL 15 NOTE: Visits indicate total known visits. ED/UCC VISIT TRACKING (12 MO.) 08/12/2024 07:15 [facility] TYPE: Emergency COMPLAINT: - DIFFICULTY BREATHING 08/10/2024 08:08 [facility] [place] TYPE: Emergency COMPLAINT: - NOSE BLEED 08/01/2024 10:25 [facility] [place] TYPE: Emergency COMPLAINT: - DIFFICULTY BREATHING 07/31/2024 11:52 [facility] [place] TYPE: Emergency COMPLAINT: - FLANK PAIN DIAGNOSES: - Allergy status to penicillin - Chronic obstructive pulmonary disease, unspecified - Other terminal manager (current) drug therapy - Unspecified abdominal pain 07/26/2024 12:20 [facility] [place] TYPE: Emergency COMPLAINT: - SHORTNESS OF BREATH DIAGNOSES: - Allergy status to penicillin - Chronic obstructive pulmonary disease, unspecified - Other intermediate (current) drug therapy - Other psychoactive substance abuse, uncomplicated - Respiratory failure, unspecified, unspecified whether with hypoxia or hypercapnia - Shortness of breath - Unspecified kidney failure 05/22/2024 22:15 [facility] [place] TYPE: Emergency COMPLAINT: - SOB DIAGNOSES: - Allergy status to penicillin - Chronic obstructive pulmonary disease with (acute) exacerbation - Other intermediate (current) drug therapy - Other specified abnormal findings of blood chemistry - Shortness of breath 2024 07:41 [facility] [place] TYPE: Emergency COMPLAINT: - SHORTNESS OF BREATH DIAGNOSES: - Allergy status to penicillin - Chronic obstructive pulmonary disease with (acute) exacerbation - long-term (current) use of inhaled steroids - long-term (current) use of systemic steroids - Other intermediate (current) drug therapy - Polyneuropathy, unspecified - Shortness of breath 04/30/2024 20:04 [facility] [place] TYPE: Emergency COMPLAINT: - TROUBLE BREATHING DIAGNOSES: - Allergy status to penicillin - Chronic obstructive pulmonary disease with (acute) exacerbation - Other terminal manager (current) drug therapy - Shortness of breath 04/05/2024 10:25 [facility] TYPE: Emergency COMPLAINT: - SHORTNESS OF BREATH DIAGNOSES: - Allergy status to penicillin - Chronic obstructive pulmonary disease with (acute) exacerbation - intermodal dispatcher (current) use of inhaled steroids - Other intermediate (current) drug therapy - Polyneuropathy, unspecified - Shortness of breath 03/02/2024 02:38 [facility] TYPE: Emergency COMPLAINT: - DIFFICULTY BREATHING 02/05/2024 15:48 [facility] TYPE: Emergency COMPLAINT: - ALLERGIC REACTION,WHEEZING DIAGNOSES: - Allergy status to penicillin - Chronic obstructive pulmonary disease, unspecified - Other terminal manager (current) drug therapy - Polyneuropathy, unspecified - Rash and other nonspecific skin eruption 01/22/2024 10:38 [facility] TYPE: Emergency COMPLAINT: - POSS ALLERGIC REACTION DIAGNOSES: - Allergy status to penicillin - Allergy, unspecified, initial encounter - Chronic obstructive pulmonary disease with (acute) lower respiratory infection - intermodal dispatcher (current) use of inhaled steroids - Other intermediate (current) drug therapy - Personal history of irradiation - Personal history of malignant neoplasm of other sites of lip, oral cavity, and pharynx - Pneumonia, unspecified organism - Polyneuropathy, unspecified - Shortness of breath 11/28/2023 01:44 [facility] TYPE: Emergency COMPLAINT: - SOB DIAGNOSES: - Allergy status to penicillin - Chronic obstructive pulmonary disease with (acute) exacerbation - intermodal dispatcher (current) use of inhaled steroids - long-term (current) use of systemic steroids - Other intermediate (current) drug therapy - Other specified chronic [...] encounter for closed fracture - Other intermediate (current) drug therapy - Pain in right shoulder - Unspecified fall, initial encounter 08/18/2023 16:41 [facility] TYPE: Emergency COMPLAINT: - ALLERGIC REACTION DIAGNOSES: - Allergy status to penicillin - Allergy, unspecified, initial encounter - Chronic obstructive pulmonary disease, unspecified - Other terminal manager (current) drug therapy - Unspecified contact dermatitis, unspecified cause INPATIENT VISIT TRACKING (12 MO.) 08/04/2024 15:59 [facility] TYPE: Internal Medicine DIAGNOSES: - Abscess of [...] - Hypokalemia - Hypomagnesemia - Hypomagnesemia - long-term (current) use of antibiotics - long-term (current) use of antibiotics - intermodal dispatcher (current) use of aromatase inhibitors - intermodal dispatcher (current) use of aromatase inhibitors - intermodal dispatcher (current) use of inhaled steroids - long-term (current) use of inhaled steroids - intermodal dispatcher (current) use of systemic steroids - intermodal dispatcher (current) use of systemic steroids - Other chest pain - Other chest pain - Other intermediate (current) drug therapy - Other terminal manager (current) drug therapy - Other pulmonary embolism [...] organism - Shortness of breath 07/26/2024 18:57 [facility] TYPE: Medical Surgical COMPLAINT: - Pneumonia DIAGNOSES: [...] pulmonary disease with (acute) exacerbation - Other intermediate (current) drug therapy - Personal history of nicotine dependence - Pneumonia, unspecified organism [email or web address]
[2024-08-12] MEDS ORDERED: PREDNISONE20 MG PO (07:28)
[2024-08-12] MEDS ORDERED: SODIUM CHLORIDE 0.9% 2,300 ML IV PRN (08:00)
[2024-08-12] MEDS ORDERED: CEFTRIAXONE SODIUM 2 GM in SODIUM CHLORIDE 0.9% 100 ML IV ONE (08:00)
[2024-08-12] MEDS ORDERED: ondansetron HCL 4 MG/2 ML VIAL IV ONE (08:00)
[2024-08-12] MEDS ORDERED: MORPHINE SULFATE 4 MG/ML VIAL IV ONE (08:00)
[2024-08-12 08:20] LABS: BASOPHILS 0.1 % (0.2-1.2); EOSINOPHILS 1.4 % (0.8-7.0); HEMOGLOBIN 13.1 g/dL (13.7-17.5); LYMPHOCYTES 4.9 % (21.8-53.1); MCH 29.4 PG (25.7-32.2); MCHC 32.8 g/dL (32.3-36.5); MCV 89.9 fL (79.0-92.2); MONOCYTES 5.1 % (5.3-12.2); NEUTROPHILS 87.9 % (34.0-67.9); PLATELET COUNT 435 K/uL (163-337); RBC 4.45 M/uL (4.63-6.08)
[2024-08-12 08:39] LABS: PARTIAL THROMBOPLASTIN TIME 23.3 Sec (22.9-41.3)
[2024-08-12 08:39] LABS: ALBUMIN 2.8 g/dL (3.4-5.0); ALBUMIN/GLOBULIN RATIO 0.85 (1.1-2.4); ANION GAP 11.4 (7-21); BILIRUBIN, TOTAL 0.5 mg/dL (0.2-1.0); BUN/CREATININE RATIO 15.3 (6.0-28.6); CALCIUM 8.1 mg/dL (8.5-10.1); CREATININE, SERUM 0.98 mg/dL (0.70-1.30); POTASSIUM 3.4 mmol/L (3.5-5.1); PROTEIN, TOTAL 6.1 g/dL (6.4-8.2)
[2024-08-12 08:40] LABS: INR 1.13 (0.80-1.30); PROTIME 13.9 Sec (11.2-14.2)
[2024-08-12] MEDS ORDERED: metroNIDAZOLE/SODIUM CHLORIDE 500 MG/100 ML PIGGYBACK IV SCH (09:00)
[2024-08-12 09:20] LABS: BILIRUBIN, URINE NEGATIVE (negative); BLOOD/HGB, URINE NEGATIVE (Negative); KETONE, URINE NEGATIVE (Negative); LEUK ESTERASE, URINE NEGATIVE (negative); NITRITE, URINE NEGATIVE (negative)
[2024-08-12 11:02] LABS: LACTIC ACID, BLOOD 1.4 mmol/L (0.4-2.0)
[2024-08-12 12:15] VITALS: BP 134/95
[2024-08-13] MEDS ORDERED: CLEOCIN HCL300 MG PO (20:59)
== END 2024-08-12 12:15 | disposition home or self-care (01) ==
LOC: ED 07:15
PROVIDERS: Emergency Medicine
DX: J98.4 Other disorders of lung (principal); R10.84 Generalized abdominal pain; J44.89 Other specified chronic obstructive pulmonary disease; Z79.51 Long term (current) use of inhaled steroids; Z79.52 Long term (current) use of systemic steroids; Z88.0 Allergy status to penicillin
CPT/HCPCS: 36415; 71045; 74177; 80053; 81003; 83605; 85025; 85060; 85610; 85730; 87040; 96368; 96375; 96376; 99284-25; J0696; J2270; J2405; Q9967

== ENCOUNTER 2024-08-13 17:34 | Emergency (ER) | payer MEDICARE, OTHER ==
[~2024-08-13] VITALS: Ht 182.9 cm; Wt 84.4 kg
--- OUTSIDE RECORDS SUMMARY | 2024-08-13 17:41 | XMS ---
PreManage Notification: DWAINE VEGA Security Nutrition Services Assistant Events No recent Security Events currently on file CRITERIA MET - 6 ED Visits in 6 Months - [facility] - 2 Visits in 30 Days CARE PROVIDERS [facility]/Center: [facility] ([facility]) PHONE: [phone] JESSIE BUENO Physician Facility Service Manager Current PHONE: [phone] Blanka Dumont Undercollar Baster/Power Plant Operators Supervisor Current PHONE: [phone] Colette has no Care Guidelines for this patient. E.D. VISIT COUNT (12 MO.) [address] [facility] TOTAL 16 NOTE: Visits indicate total known visits. ED/UCC VISIT TRACKING (12 MO.) 08/13/2024 17:35 [facility] TYPE: Emergency COMPLAINT: - SOB 08/12/2024 07:15 [facility] TYPE: Emergency COMPLAINT: - DIFFICULTY BREATHING 08/10/2024 08:08 [facility] TYPE: Emergency COMPLAINT: - NOSE BLEED DIAGNOSES: - Allergy status to penicillin - Epistaxis - retirement (current) use of inhaled steroids - Other rat exterminator (current) drug therapy - Other specified chronic obstructive pulmonary disease 08/01/2024 10:25 [facility] TYPE: Emergency COMPLAINT: - DIFFICULTY BREATHING 07/31/2024 11:52 [facility] TYPE: Emergency COMPLAINT: - FLANK PAIN DIAGNOSES: - Allergy status to penicillin - Chronic obstructive pulmonary disease, unspecified - Other rat exterminator (current) drug therapy - Unspecified abdominal pain 07/26/2024 12:20 [facility] TYPE: Emergency COMPLAINT: - SHORTNESS OF BREATH DIAGNOSES: - Allergy status to penicillin - Chronic obstructive pulmonary disease, unspecified - Other rat exterminator (current) drug therapy - Other psychoactive substance abuse, uncomplicated - Respiratory failure, unspecified, unspecified whether with hypoxia or hypercapnia - Shortness of breath - Unspecified kidney failure 05/22/2024 22:15 [facility] TYPE: Emergency COMPLAINT: - SOB DIAGNOSES: - Allergy status to penicillin - Chronic obstructive pulmonary disease with (acute) exacerbation - Other rat exterminator (current) drug therapy - Other specified abnormal findings of blood chemistry - Shortness of breath 2024 07:41 [facility] TYPE: Emergency COMPLAINT: - SHORTNESS OF BREATH DIAGNOSES: - Allergy status to penicillin - Chronic obstructive pulmonary disease with (acute) exacerbation - 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 - retirement (current) use of systemic steroids - Other rat exterminator (current) drug therapy - Polyneuropathy, unspecified - Shortness of breath 04/30/2024 20:04 [facility] TYPE: Emergency COMPLAINT: - TROUBLE BREATHING DIAGNOSES: - Allergy status to penicillin - Chronic obstructive pulmonary disease with (acute) exacerbation - Other rat exterminator (current) drug therapy - Shortness of breath 04/05/2024 10:25 [facility] TYPE: Emergency COMPLAINT: - SHORTNESS OF BREATH DIAGNOSES: - Allergy status to penicillin - Chronic obstructive pulmonary disease with (acute) exacerbation - 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 - Other longterm (current) drug therapy - Polyneuropathy, unspecified - Shortness of breath 03/02/2024 02:38 [facility] TYPE: Emergency COMPLAINT: - DIFFICULTY BREATHING 02/05/2024 15:48 [facility] TYPE: Emergency COMPLAINT: - ALLERGIC REACTION,WHEEZING DIAGNOSES: - Allergy status to penicillin - Chronic obstructive pulmonary disease, unspecified - Other longterm (current) drug therapy - Polyneuropathy, unspecified - Rash and other nonspecific skin eruption 01/22/2024 10:38 [facility] TYPE: Emergency COMPLAINT: - POSS ALLERGIC REACTION DIAGNOSES: - Allergy status to penicillin - Allergy, unspecified, initial encounter - Chronic obstructive pulmonary disease with (acute) lower respiratory infection - retirement (current) use of inhaled steroids - Other longterm (current) drug therapy - Personal history of irradiation - Personal history of malignant neoplasm of other sites of lip, oral cavity, and pharynx - Pneumonia, unspecified organism - Polyneuropathy, unspecified - Shortness of breath 11/28/2023 01:44 [facility] TYPE: Emergency COMPLAINT: - SOB DIAGNOSES: - Allergy status to penicillin - Chronic obstructive pulmonary disease with (acute) exacerbation - retirement (current) use of inhaled steroids - retirement (current) use of systemic steroids - Other rat exterminator (current) drug therapy - Other specified chronic [...] initial encounter for closed fracture - Other rat exterminator (current) drug therapy - Pain in right shoulder - Unspecified fall, initial encounter 08/18/2023 16:41 [facility] TYPE: Emergency COMPLAINT: - ALLERGIC REACTION DIAGNOSES: - Allergy status to penicillin - Allergy, unspecified, initial encounter - Chronic obstructive pulmonary disease, unspecified - Other rat exterminator (current) drug therapy - Unspecified contact dermatitis, unspecified cause INPATIENT VISIT TRACKING (12 MO.) 08/04/2024 15:59 [facility] TYPE: Internal Medicine DIAGNOSES: - Abscess of lung with pneumonia - Acute respiratory distress - Elevated urine levels of drugs, medicaments and biological substances - Laryngeal spasm - Other pulmonary embolism without acute cor pulmonale - Pneumonitis due to inhalation of food and vomit - empyema - lung abscess - pulmonary embolism 08/01/2024 13:[address] 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
[2024-08-13] MEDS ORDERED: ALBUTEROL SULFATE 0.5% 2.5 MG/0.5 ML VIAL ONE (17:44)
[2024-08-13] MEDS ORDERED: methylPREDNISolone SOD SUCC 125 MG/2 ML VIAL IV ONE (17:45)
[2024-08-13 17:54] LABS: PH, VENOUS 7.494 (7.31-7.41)
[2024-08-13 17:55] LABS: BASOPHILS 0.1 % (0.2-1.2); EOSINOPHILS 0 % (0.8-7.0); HEMATOCRIT 37.3 % (40.1-51.0); HEMOGLOBIN 12.4 g/dL (13.7-17.5); LYMPHOCYTES 4.2 % (21.8-53.1); MCH 29.9 PG (25.7-32.2); MCHC 33.2 g/dL (32.3-36.5); MCV 89.9 fL (79.0-92.2); MONOCYTES 4.6 % (5.3-12.2); NEUTROPHILS 90.6 % (34.0-67.9); PLATELET COUNT 455 K/uL (163-337); RBC 4.15 M/uL (4.63-6.08)
[2024-08-13] MEDS ORDERED: ALBUTEROL/IPRATROPIUM 3 ML NEB INH ONE (18:00)
[2024-08-13] MEDS ORDERED: LORazepam 2 MG/ML VIAL IV ONE (18:00)
[2024-08-13] MEDS ORDERED: ALBUTEROL SULFATE 0.5% 2.5 MG/0.5 ML VIAL INH ONE (18:00)
[2024-08-13 18:18] LABS: ALBUMIN 2.9 g/dL (3.4-5.0); ALBUMIN/GLOBULIN RATIO 0.78 (1.1-2.4); ANION GAP 15.4 (7-21); BILIRUBIN, TOTAL 0.2 mg/dL (0.2-1.0); BUN/CREATININE RATIO 22.9 (6.0-28.6); CALCIUM 8.6 mg/dL (8.5-10.1); CREATININE, SERUM 1.31 mg/dL (0.70-1.30); POTASSIUM 4.4 mmol/L (3.5-5.1); PROTEIN, TOTAL 6.6 g/dL (6.4-8.2)
[2024-08-13] MEDS ORDERED: LORazepam 1 MG HOME.PACK PO ONE (20:45)
[2024-08-13] MEDS ORDERED: methylPREDNISolone 4 MG HOME.PACK PO ONE (20:45)
[2024-08-13] MEDS ORDERED: CLEOCIN HCL300 MG PO (20:59)
[2024-08-13] MEDS ORDERED: clindamycin HCL 300 MG HOME.PACK PO ONE (21:00)
[2024-08-13 21:11] VITALS: BP 130/84
--- NOTE | 2024-08-13 21:45 | EKG ---
[facility] [address] [place] [address] Signed Sinus tachycardia Otherwise normal ECG When compared with ECG of 01-AUG-2024 10:33, No significant change was found Confirmed by Luis Manuel Sarmiento MD () on 08/13/2024 9:45:41 PM Electronically Signed By: LUIS MANUEL SARMIENTO MD [id number] PATIENT NAME: DWAINE VEGA JR Electrocardiogram DATE OF : 58 PHYSICIAN: LUIS MANUEL SARMIENTO MD REPORT #: [id number] REPORT IS CONFIDENTIAL AND NOT TO BE RELEASED WITHOUT AUTHORIZATION
== END 2024-08-13 21:13 | disposition home or self-care (01) ==
LOC: ED 17:34
PROVIDERS: Emergency Medicine
DX: J85.2 Abscess of lung without pneumonia (principal); R10.11 Right upper quadrant pain; J44.9 Chronic obstructive pulmonary disease, unspecified; B20 Human immunodeficiency virus [HIV] disease; Z88.0 Allergy status to penicillin; Z79.899 Other long term (current) drug therapy; Z79.01 Long term (current) use of anticoagulants; Z79.2 Long term (current) use of antibiotics
CPT/HCPCS: 36415; 71045; 71260; 80053; 82803; 83880; 84484; 85025; 94640; 94799; 99285-25; J2060; J2919; Q9967

== ENCOUNTER 2024-08-14 07:43 | Emergency (ER) | payer MEDICARE, OTHER ==
[~2024-08-14] VITALS: Ht 182.9 cm; Wt 84.4 kg
--- OUTSIDE RECORDS SUMMARY | 2024-08-14 07:45 | XMS ---
PreManage Notification: DWAINE VEGA Security Skiing Instructor Events No recent Security Events currently on file CRITERIA MET - 6 ED Visits in 6 Months - [facility] - 2 Visits in 30 Days CARE PROVIDERS [facility]: [facility] ([facility]) PHONE: [phone] JESSIE BUENO Physician Synthetic Plasterer Current PHONE: [phone] Blanka Dumont Element Setter/Medical Doctor Md Current PHONE: [phone] Colette has no Care Guidelines for this patient. E.D. VISIT COUNT (12 MO.) [address] [facility] TOTAL 17 NOTE: Visits indicate total known visits. ED/UCC VISIT TRACKING (12 MO.) 08/14/2024 07:44 [facility] [place] TYPE: Emergency COMPLAINT: - SHORTNESS OF BREATH 08/13/2024 17:35 [facility] [place] TYPE: Emergency COMPLAINT: - SOB 08/12/2024 07:15 [facility] [place] TYPE: Emergency COMPLAINT: - DIFFICULTY BREATHING 08/10/2024 08:08 [facility] [place] TYPE: Emergency COMPLAINT: - NOSE BLEED DIAGNOSES: - Allergy status to penicillin - Epistaxis - exterminator helper (current) use of inhaled steroids - Other halfway (current) drug therapy - Other specified chronic obstructive pulmonary disease 08/01/2024 10:25 [facility] [place] TYPE: Emergency COMPLAINT: - DIFFICULTY BREATHING 07/31/2024 11:52 [facility] [place] TYPE: Emergency COMPLAINT: - FLANK PAIN DIAGNOSES: - Allergy status to penicillin - Chronic obstructive pulmonary disease, unspecified - Other halfway (current) drug therapy - Unspecified abdominal pain 07/26/2024 12:20 [facility] [place] TYPE: Emergency COMPLAINT: - SHORTNESS OF BREATH DIAGNOSES: - Allergy status to penicillin - Chronic obstructive pulmonary disease, unspecified - Other halfway (current) drug therapy - Other psychoactive substance abuse, uncomplicated - Respiratory failure, unspecified, unspecified whether with hypoxia or hypercapnia - Shortness of breath - Unspecified kidney failure 05/22/2024 22:15 [facility] [place] TYPE: Emergency COMPLAINT: - SOB DIAGNOSES: - Allergy status to penicillin - Chronic obstructive pulmonary disease with (acute) exacerbation - Other longshore equipment operator (current) drug therapy - Other specified abnormal findings of blood chemistry - Shortness of breath 2024 07:41 [facility] [place] TYPE: Emergency COMPLAINT: - SHORTNESS OF BREATH DIAGNOSES: - Allergy status to penicillin - Chronic obstructive pulmonary disease with (acute) exacerbation - correction (current) use of inhaled steroids - exterminator helper (current) use of systemic steroids - Other halfway (current) drug therapy - Polyneuropathy, unspecified - Shortness of breath 04/30/2024 20:04 [facility] [place] TYPE: Emergency COMPLAINT: - TROUBLE BREATHING DIAGNOSES: - Allergy status to penicillin - Chronic obstructive pulmonary disease with (acute) exacerbation - Other halfway (current) drug therapy - Shortness of breath 04/05/2024 10:25 [facility] [place] TYPE: Emergency COMPLAINT: - SHORTNESS OF BREATH DIAGNOSES: - Allergy status to penicillin - Chronic obstructive pulmonary disease with (acute) exacerbation - exterminator helper (current) use of inhaled steroids - Other longshore equipment operator (current) drug therapy - Polyneuropathy, unspecified - Shortness of breath 03/02/2024 02:38 [facility] [place] TYPE: Emergency COMPLAINT: - DIFFICULTY BREATHING 02/05/2024 15:[address] [facility] [place] TYPE: Emergency COMPLAINT: - ALLERGIC REACTION,WHEEZING DIAGNOSES: - Allergy status to penicillin - Chronic obstructive pulmonary disease, unspecified - Other halfway (current) drug therapy - Polyneuropathy, unspecified - Rash and other nonspecific skin eruption 01/22/2024 10:38 [facility] [place] TYPE: Emergency COMPLAINT: - POSS ALLERGIC REACTION DIAGNOSES: - Allergy status to penicillin - Allergy, unspecified, initial encounter - Chronic obstructive pulmonary disease with (acute) lower respiratory infection - exterminator helper (current) use of inhaled steroids - Other longshore equipment operator (current) drug therapy - Personal history of irradiation - Personal history of malignant neoplasm of other sites of lip, oral cavity, and pharynx - Pneumonia, unspecified organism - Polyneuropathy, unspecified - Shortness of breath 11/28/2023 01:44 [facility] [place] TYPE: Emergency COMPLAINT: - SOB DIAGNOSES: - Allergy status to penicillin - Chronic obstructive pulmonary disease with (acute) exacerbation - exterminator helper (current) use of inhaled steroids - exterminator helper (current) use of systemic steroids - Other longshore equipment operator (current) drug therapy - Other specified chronic [...] initial encounter for closed fracture - Other longshore equipment operator (current) drug therapy - Pain in right shoulder - Unspecified fall, initial encounter 08/18/2023 16:41 [facility] [place] TYPE: Emergency COMPLAINT: - ALLERGIC REACTION DIAGNOSES: - Allergy status to penicillin - Allergy, unspecified, initial encounter - Chronic obstructive pulmonary disease, unspecified - Other halfway (current) drug therapy - Unspecified contact dermatitis, unspecified cause INPATIENT VISIT TRACKING (12 MO.) [facility] DIAGNOSES: - Abscess of [...] - Hypokalemia - Hypomagnesemia - Hypomagnesemia - correction (current) use of antibiotics - exterminator helper (current) use of antibiotics - correction (current) use of aromatase inhibitors - exterminator helper (current) use of aromatase inhibitors - correction (current) use of inhaled steroids - exterminator helper (current) use of inhaled steroids - correction (current) use of systemic steroids - exterminator helper (current) use of systemic steroids - Other chest pain - Other chest pain - Other halfway (current) drug therapy - Other halfway (current) drug therapy - Other pulmonary embolism [...] - Shortness of breath [facility]26[facility]2024 18[facility] TYPE: Medical Surgical COMPLAINT: - Pneumonia [...] pulmonary disease with (acute) exacerbation - Other longshore equipment operator (current) drug therapy - Personal history of nicotine dependence - Pneumonia, unspecified organism [email or web address]
[2024-08-14] MEDS ORDERED: OLANZapine 10 MG VIAL IM ONE (08:00)
[2024-08-14 08:40] VITALS: BP 144/91
== END 2024-08-14 08:30 | disposition home or self-care (01) ==
LOC: ED 07:43
DX: F41.0 Panic disorder [episodic paroxysmal anxiety] (principal); J44.89 Other specified chronic obstructive pulmonary disease; Z79.51 Long term (current) use of inhaled steroids; Z79.52 Long term (current) use of systemic steroids; Z79.899 Other long term (current) drug therapy; Z88.0 Allergy status to penicillin
CPT/HCPCS: 96372; 99283